=== PATIENT | female | born 1935 | race Caucasian/White ===

== ENCOUNTER 2016-11-25 20:10 | Inpatient (IN) | payer MEDICARE, MEDICAID ==
--- NOTE | 2016-11-25 20:26 | ED Physician Chart ---
Chief Complaint/HPI - Patient Information Date Seen:: 11/25/16 Time Seen:: 20:22 Chief Complaint:: anxiety History of Present Illness:: [place] [facility] [place] lately. gets hyperventilation at times. feels ok at present. lives in [place]. used to live near this hospital...knows neighborhood. no recent pain nor illness. no cp. no ARMSTRONG> no abd p. no back pain. no fever. no uri sx. no urine change. pt has soft tissue mass on rt forearm that has been stable w no change for yrs. hx of insomnea but feels sleepy rt now. Historian:: Patient Review:: Transfer documents Reviewed Review of Systems - Review of Systems General/Constitutional: No fever, No chills, No weight loss, No weakness, No diaphoresis, No edema, No loss of appetite Skin: No skin lesions, No rash, No bruising Head: No headache, No light-headedness Eyes: No loss of vision, No pain, No diplopia ENT: No earache, No nasal drainage, No sore throat, No tinnitus Neck: No neck pain, No swelling, No thyromegaly, No stiffness, No mass noted Cardio Vascular: No chest pain, No palpitations, No PND, No orthopnea, No edema Pulmonary: No SOB, No cough, No sputum, No wheezing GI: No nausea, No vomiting, No diarrhea, No pain, No melena, No hematochezia, No constipation, No hematemesis G/U: No dysuria, No frequency, No hematuria Musculoskeletal: No bone or joint pain, No back pain, No muscle pain Endocrine: No polyuria, No polydipsia Psychiatric: Prior psych history, No depression, Anxiety, No suicidal ideation Hematopoietic: No bruising, No lymphadenopathy Allergic/Immuno: No urticaria, No angioedema Neurological: No syncope, No focal symptoms, No weakness, No paresthesia, No headache, No seizure, No dizziness, No confusion, No vertigo Past Medical History - Past Medical History Past Medical History: HTN Social History: Care Facility Psychiatricy History: Other (anxiety) Medication: Reviewed Family Medical History - Family Member Mother History Unknown: Yes Physical Exam - Physical Examination General/Constitutional: Awake, Well-developed, well-nourished, Alert, No distress, GCS 15, Non-toxic appearing, Ambulatory Head: Atraumatic Eyes: Lids, conjuctiva normal, PERRL, EOMI Skin: Nl inspection, No rash, No skin lesions, No ecchymosis, Well hydrated, No lymphadenopathy ENMT: External ears, nose nl, Nasal exam nl, Lips, teeth, gums nl Neck: Nontender, Full ROM w/o pain, No JVD, No nuchal rigidity, No bruit, No mass, No stridor Respiratory: Nl effort/Exclusion, Clear to Auscultation, No Wheeze/Rhonchi/Rales Cardio Vascular: RRR, No murmur, gallop, rubs, NL S1 S2 GI: No tenderness/rebounding/guarding, No organomegaly, No hernia, Normal BS's, Nondistended, No mass/bruits, No McBurney tenderness : No CVA tenderness Extremities: No tenderness or effusion, Full ROM, normal strength in all extremities, No edema, Normal digits & nails Other Extremities comments:: 2 inch soft tissue mass at rt forearm. 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 not red/hot etc...no infection. not tndr. Neuro/Psych: Alert/oriented, DTR's symmetric, Normal sensory exam, Normal motor strength, Judgement/insight normal, Mood normal, Normal gait, No focal deficits Other Neuro/Psych comments:: pt calm and cooperative at present. mild anxiety. Misc: normal gait, Normal back, No paraspinal tenderness Labs/Radiology/EKG Results - Lab Results Results: Laboratory Tests 11/25/16 11/25/16 11/25/16 20:40 20:40 20:40 WBC 8.5 RBC 5.14 Hgb 14.4 Hct 43.4 MCV 84.4 MCH 28.0 MCHC Differential 33.1 RDW 12.3 Plt Count 395 MPV 6.7 Neutrophils % 71.5 Lymphocytes % 17.4 L Monocytes % 9.6 Eosinophils % 1.2 Basophils % 0.3 Sodium 126 L Potassium 3.9 Chloride 96 L Carbon Dioxide 24.1 Anion Gap 9.8 BUN 13 Creatinine 0.7 Est GFR ( Amer) TNP Est GFR (Non-Af Amer) TNP BUN/Creatinine Ratio 18.6 Glucose 200 H Calcium 9.8 Total Bilirubin 0.4 AST 11 L ALT 8 Alkaline Phosphatase 71 Troponin I Total Protein 7.6 Albumin 3.8 Globulin 3.8 Albumin/Globulin Ratio 1.0 Triglycerides 89 Cholesterol 182 LDL Cholesterol Direct 124 HDL Cholesterol 52 TSH 1.19 Salicylates < 25.0 L Acetaminophen < 10.0 L Ethyl Alcohol < 10 11/25/16 20:40 WBC RBC Hgb Hct MCV MCH MCHC Differential RDW Plt Count MPV Neutrophils % Lymphocytes % Monocytes % Eosinophils % Basophils % Sodium Potassium Chloride Carbon Dioxide Anion Gap BUN Creatinine Est GFR ( Amer) Est GFR (Non-Af Amer) BUN/Creatinine Ratio Glucose Calcium Total Bilirubin AST ALT Alkaline Phosphatase Troponin I 0.01 Total Protein Albumin Globulin Albumin/Globulin Ratio Triglycerides Cholesterol LDL Cholesterol Direct HDL Cholesterol TSH Salicylates Acetaminophen Ethyl Alcohol ED Septic Shock - . Is Septic Shock (SBP<90, OR Lactate>4 mmol\L) present?: No Reassessment (Disposition) - Reassessment Reassessment:: pt did well in ED. is starting to have mild agitation..wants to go to room now. labs ok x 200 glucose but [facility] floor is ok w handling dm from my past experiences and dm appears mild/early. will add a hgb a1c to quantify. Reassessment Condition:: Unchanged - Diagnosis Diagnosis:: 1 behavioral issues anxiety/agitation // pt medically clear for [facility] admission 2 suspect new onset DM (glucose 200) - Patient Disposition Admitted to:: [facility] Condition at Disposition:: Unchanged
[2016-11-25 20:46] LABS: % BASOPHILS 0.3 % (0.0-2.0); % EOSINOPHILS 1.2 % (0.0-5.0); % LYMPHOCYTES 17.4 % (20.0-50.0); % MONOCYTES 9.6 % (2.0-10.0); % NEUTROPHILS 71.5 % (40.0-80.0); HEMATOCRIT 43.4 % (35.0-45.0); HEMOGLOBIN 14.4 gm/dL (11.7-16.1); MEAN CELL VOLUME 84.4 fl (81-100); MEAN CORPUSCULAR HGB CONC 33.1 pg (28.0-36.0); MEAN PLATELET VOLUME 6.7 fl; NEUTROPHILE ABSOLUTE 6.1 Th/cmm (1.8-8.0); PLATELET COUNT 395 Th/cmm (150-400); RED BLOOD COUNT 5.14 Mil/cmm (3.80-5.20); RED CELL DISTRIBUTION WIDTH 12.3 % (11.5-20.0); WHITE BLOOD COUNT 8.5 Th/cmm (4.8-10.8)
[2016-11-25 21:06] LABS: ACETAMINOPHEN < 10.0 ug/mL (10.0-30.0); ALKALINE PHOSPHATASE 71 U/L (34-104); ANION GAP 9.8 (7.0-16.0); BILIRUBIN,TOTAL 0.4 mg/dL (0.3-1.0); BUN - UREA NITROGEN 13 mg/dL (7-25); BUN/CREATININE RATIO 18.6; CALCIUM SERUM 9.8 mg/dL (8.6-10.3); CARBON DIOXIDE 24.1 mEq/L (21.0-31.0); CHLORIDE 96 mEq/L (98-107); CHOLESTEROL 182 mg/dL (<200); CREATININE - SERUM 0.7 mg/dL (0.6-1.2); GLUCOSE 200 mg/dL (70-105); POTASSIUM SERUM 3.9 mEq/L (3.5-5.1); SGOT 11 U/L (13-39); SGPT/ALT 8 U/L (7-52); SODIUM SERUM 126 mEq/L (136-145); TRIGLYCERIDES 89 mg/dL (<150)
[2016-11-25 22:44] LABS: AMPHETAMINE URINE NEGATIVE (NEGATIVE); BARBITURATES URINE NEGATIVE (NEGATIVE)
[2016-11-25 22:45] LABS: METHADONE URINE NEGATIVE (NEGATIVE)
[2016-11-25 22:52] LABS: URINE BILIRUBIN NEGATIVE (NEGATIVE); URINE COLOR YELLOW; URINE GLUCOSE (UA) NEGATIVE (NEGATIVE); URINE KETONE NEGATIVE (NEGATIVE)
[2016-11-25 22:53] LABS: URINE BLOOD TRACE (NEGATIVE); URINE PH 6.5; URINE PROTEIN NEGATIVE (NEGATIVE); URINE UROBILINOGEN 0.2 E.U./dL (0.2 - 1.0)
[2016-11-25 22:54] LABS: URINE BACTERIA FEW /hpf (NONE SEEN); URINE EPITHELIAL CELLS FEW /lpf (FEW); URINE RBC 0-2 /hpf (0-5)
[2016-11-25 23:17] VITALS: BP 129/68
[2016-11-25] MEDS ORDERED: Maalox 30 mL Cup PO PRN (23:18)
[2016-11-25] MEDS ORDERED: Magnesium Hydroxide (MOM) 30 mL UDC PO PRN (23:18)
[2016-11-25] MEDS ORDERED: Non-Formulary Item 1 EA (Temazepam [Restoril*] 7.5 MG) PO PRN (23:22)
[2016-11-26] MEDS: Carbamide Peroxide Otic Soln 15 mL Bottle RIGHT EAR SCH ×3 (09:03→16:45)
[2016-11-26] MEDS: Acetaminophen 500 MG TAB PO PRN (11:31)
--- NOTE | 2016-11-26 15:16 | Admit Criteria Form ---
Admit Criteria Forms - Admit Criteria Diagnosis: PSYCHIATRIC DISORDERS (Place 'X' for any and all applicable criteria): Ongoing inpatient care may be needed for 1 or more of the following(1)(2)(3)(4)( 6)(7)(8): [ ]I. Danger to self or others not manageable at lower level of care. [ ]II. Grave disability (eg, inability to perform self care necessary at lower level of care) [ ]III. Agitation or inappropriate behavior interfering with care for primary condition (eg, attempting to discontinue lines or drains prematurely, unable to cooperate with respiratory care) [X]IV. Severe disability or disorder indicated by ALL of the following: [X]a) Severe behavioral health disorder-related symptoms or condition indicated by 1 or more of the following: [ ]i) Severe problem with cognition, memory, judgment, or impulse control [X]ii) Severe clinical manifestations (eg, hallucinations, delusions, other acute psychotic symptoms, rudy, extreme agitation or anxiety) [X]b) Patient management at lower level of care is not feasible until acute intervention or modification is initiated. Extended stay beyond goal length of stay for the primary condition may be needed until ALLof the following are present(1)(2)(3)(4)(7)94)(23): [ ]a) Danger to self or others is absent or manageable at lower level of care [ ]b) Behavior crisis management, including physical or chemical restraints, is required and is not available at a lower level of care. [ ]c) Behavioral symptoms (e.g., agitation, somnolence, inappropriate behavior) are present, and are not manageable at a lower level of care. [ ]d) Patient cannot understand follow-up treatment and crisis plan. [ ]e) Provider and supports are sufficiently available at lower level of care. [ ]f) Patient can participate (e.g., verify absence of plan for harm) and is in needed of monitoring. The original [facility] content created by [facility] has been revised. The portions of the content which have been revised are identified through the use of italic text or in bold, and [facility] has neither reviewed nor approved the modified material. All other unmodified content is copyright [facility]. Please see references footnoted in the original [facility] edition 2017
[2016-11-27] MEDS: Acetaminophen 500 MG TAB PO PRN ×3 (00:10→21:08)
[2016-11-27] MEDS: Carbamide Peroxide Otic Soln 15 mL Bottle RIGHT EAR SCH ×2 (08:46→17:30)
--- NOTE | 2016-11-27 10:02 | General Progress Note ---
Subjective - Review of Systems Subjective: no distress Objective - Results Result Diagrams: 11/25/16 20:40 11/25/16 20:40 Recent Labs: Laboratory Last Values WBC 8.5 Th/cmm (4.8-10.8) 11/25/16 20:40 RBC 5.14 Mil/cmm (3.80-5.20) 11/25/16 20:40 Hgb 14.4 gm/dL (11.7-16.1) 11/25/16 20:40 Hct 43.4 % (35.0-45.0) 11/25/16 20:40 MCV 84.4 fl (81-100) 11/25/16 20:40 MCH 28.0 pg (27.0-31.0) 11/25/16 20:40 MCHC Differential 33.1 pg (28.0-36.0) 11/25/16 20:40 RDW 12.3 % (11.5-20.0) 11/25/16 20:40 Plt Count 395 Th/cmm (150-400) 11/25/16 20:40 MPV 6.7 fl 11/25/16 20:40 Neutrophils % 71.5 % (40.0-80.0) 11/25/16 20:40 Lymphocytes % 17.4 % (20.0-50.0) L 11/25/16 20:40 Monocytes % 9.6 % (2.0-10.0) 11/25/16 20:40 Eosinophils % 1.2 % (0.0-5.0) 11/25/16 20:40 Basophils % 0.3 % (0.0-2.0) 11/25/16 20:40 Sodium 126 mEq/L (136-145) L 11/25/16 20:40 Potassium 3.9 mEq/L (3.5-5.1) 11/25/16 20:40 Chloride 96 mEq/L (98-107) L 11/25/16 20:40 Carbon Dioxide 24.1 mEq/L (21.0-31.0) 11/25/16 20:40 Anion Gap 9.8 (7.0-16.0) 11/25/16 20:40 BUN 13 mg/dL (7-25) 11/25/16 20:40 Creatinine 0.7 mg/dL (0.6-1.2) 11/25/16 20:40 Est GFR ( Amer) TNP 11/25/16 20:40 Est GFR (Non-Af Amer) TNP 11/25/16 20:40 BUN/Creatinine Ratio 18.6 11/25/16 20:40 Glucose 200 mg/dL (70-105) H 11/25/16 20:40 Hemoglobin A1c % 6.9 % (4.0-6.0) H 11/25/16 20:40 Calcium 9.8 mg/dL (8.6-10.3) 11/25/16 20:40 Total Bilirubin 0.4 mg/dL (0.3-1.0) 11/25/16 20:40 AST 11 U/L (13-39) L 11/25/16 20:40 ALT 8 U/L (7-52) 11/25/16 20:40 Alkaline Phosphatase 71 U/L (34-104) 11/25/16 20:40 Troponin I 0.01 ng/mL (0.01-0.05) 11/25/16 20:40 Total Protein 7.6 gm/dL (6.0-8.3) 11/25/16 20:40 Albumin 3.8 gm/dL (3.7-5.3) 11/25/16 20:40 Globulin 3.8 gm/dL 11/25/16 20:40 Albumin/Globulin Ratio 1.0 (1.0-1.8) 11/25/16 20:40 Triglycerides 89 mg/dL (<150) 11/25/16 20:40 Cholesterol 182 mg/dL (<200) 11/25/16 20:40 LDL Cholesterol Direct 124 mg/dL (75-193) 11/25/16 20:40 HDL Cholesterol 52 mg/dL (23-92) 11/25/16 20:40 TSH 1.19 uIU/ml (0.34-5.60) 11/25/16 20:40 Urine Source CLEAN C 11/25/16 22:00 Urine Color YELLOW 11/25/16 22:00 Urine Clarity CLEAR (CLEAR) 11/25/16 22:00 Urine pH 6.5 11/25/16 22:00 Ur Specific [place] 1.010 (1.005-1.030) 11/25/16 22:00 Urine Protein NEGATIVE mg/dL (NEGATIVE) 11/25/16 22:00 Urine Glucose (UA) NEGATIVE mg/dL (NEGATIVE) 11/25/16 22:00 Urine Ketones NEGATIVE mg/dL (NEGATIVE) 11/25/16 22:00 Urine Blood TRACE (NEGATIVE) 11/25/16 22:00 Urine Nitrate NEGATIVE (NEGATIVE) 11/25/16 22:00 Urine Bilirubin NEGATIVE (NEGATIVE) 11/25/16 22:00 Urine Urobilinogen 0.2 E.U./dL (0.2 - 1.0) 11/25/16 22:00 Ur Leukocyte Esterase SMALL (NEGATIVE) H 11/25/16 22:00 Urine RBC 0-2 /hpf (0-5) 11/25/16 22:00 Urine WBC 6-10 /hpf (0-5) H 11/25/16 22:00 Ur Epithelial Cells FEW /lpf (FEW) 11/25/16 22:00 Urine Bacteria FEW /hpf (NONE SEEN) 11/25/16 22:00 Salicylates < 25.0 mg/L (30.0-100.0) L 11/25/16 20:40 Urine Opiates Screen NEGATIVE (NEGATIVE) 11/25/16 22:00 Urine Methadone Screen NEGATIVE (NEGATIVE) 11/25/16 22:00 Acetaminophen < 10.0 ug/mL (10.0-30.0) L 11/25/16 20:40 Ur Barbiturates Screen NEGATIVE (NEGATIVE) 11/25/16 22:00 Ur Tricyclics Screen NEGATIVE (NEGATIVE) 11/25/16 22:00 Ur Phencyclidine Scrn NEGATIVE (NEGATIVE) 11/25/16 22:00 Amphetamines Screen NEGATIVE (NEGATIVE) 11/25/16 22:00 U Methamphetamines Scrn NEGATIVE (NEGATIVE) 11/25/16 22:00 U Benzodiazepines Scrn POSITIVE (NEGATIVE) H 11/25/16 22:00 U Cocaine Metab Screen NEGATIVE (NEGATIVE) 11/25/16 22:00 U Cannabinoids Screen NEGATIVE (NEGATIVE) 11/25/16 22:00 Ethyl Alcohol < 10 mg/dL (0-10) 11/25/16 20:40 RPR NONREACTIVE (NONREACTIVE) 11/25/16 20:40 - Physical Exam Vitals and I&O: Vital Signs Temp 97.9 F 11/26/16 21:15 Pulse 75 06/29/17 21:15 Resp 18 11/26/16 21:15 BP 145/78 11/26/16 21:15 Pulse Ox 98 11/26/16 21:15 Intake & Output 11/26/16 11/27/16 11/27/16 18:59 06:59 18:59 Other: # Voids 1 Active Medications: Current Medications Acetaminophen (Tylenol Extra Strength) 500 mg PO Q6HR PRN PRN Reason: Pain (Mild) Last Admin: 11/27/16 08:47 Dose: 500 mg Al Hydrox/Mg Hydrox/Simethicone (Maalox) 30 ml PO Q6H PRN PRN Reason: Dyspepsia Stop: 01/24/17 23:17 Carbamide Peroxide (Debrox Otic Drops) 4 drop RIGHT EAR BID [facility] Stop: 11/30/16 08:59 Last Admin: 11/27/16 08:46 Dose: Not Given Famotidine (Pepcid) 20 mg PO DAILY [facility] Stop: 01/25/17 08:59 Last Admin: 11/27/16 08:46 Dose: 20 mg Lorazepam (Ativan) 0.5 mg PO Q8HR PRN; Protocol PRN Reason: Anxiety/agitation Stop: 01/24/17 23:21 Magnesium Hydroxide (Milk Of Magnesia) 30 ml PO HS PRN PRN Reason: Constipation Stop: 01/24/17 23:17 Zolpidem Tartrate (Ambien) 5 mg PO HS PRN PRN Reason: Insomnia Stop: 01/25/17 09:05 - Procedures Procedures: Procedures Procedure Code Date EMERGENCY DEPT VISIT 92919 02/03/00 IMMOBILIZ/WOUND ATTN NEC 93.59 08/01/01 Nutritional Asmnt/Malnutr-PDOC - Dietary Evaluation Malnutrition Findings (Please click <Entered> for more info): Nutritional Asmnt/Malnutrition Start: 11/26/16 13: 08 Text: Status: Complete Freq: Document 11/26/16 13:08 GSUN (Rec: 11/26/16 13:18 [id number]) Nutritional Asmnt/Malnutrition Patient General Information Nutritional Screening High Risk Screening Diagnosis ER: suspect new onset DM Pertinent Medical Hx/Surgical Hx ER: HTN Subjective Information 81 year old female from SNF. Spoke to pt resting in bed, pt appeared slightly confused, forgetful, easily agitated, not suitable for DM edu. Pt stated usually fair appetite, ate 50% breakfast this AM. Teeth intact, no difficulties eating, became agitated regarding retriving her toothpick from her purse. Pt stated UBW 140lb, CBW bedscale 153.1lb, pt denied recent weight changes. Current Diet Order/ Nutrition Support Regular, ANGELIQUE Pertinent Medications Maalox, Pepcid, MOM Pertinent Labs 11/25: glucose 200H, A1c 6.9H Nutritional Hx/Data Height 1.63 m Height (Calculated Centimeters) 162.6 Current Weight (lbs) 69.445 kg Weight (Calculated Kilograms) 69.4 Weight (Calculated Grams) 63513.0 Usual body Weight (lbs) 140 [place] Body Weight 120 Weight Status Overweight GI Symptoms Cultural/Ethnic/Muslim Belief Pt denied allergies. Pt dislikes milk, yogurt. Skin Integrity/Comment: Tomás Griffiths. Skin intact. Estimated Nutritional Goals Calories/Kcals/Kg UBW 140lb/63.6kg Kcals Calculated 1590-1908kcal (25-30kcal/kg) Protein Calculated 64g (1g/kg) Fluid: ml 1590-1908ml (1ml/kcal) Nutritional Problem 1. Problem Problem Altered nutrition related laboratory values related to Etiology endocrine dysfunction, " suspect new onset DM" per ER note aeb Signs/Symptoms: A1c 6.9, glucose 200 on adm Intervention/Recommendation Comments 1. Recommend [id number]. 2. FNS noted of pt's fodo preferences. Expected Outcomes/Goals Expected Outcomes/Goals 1. PO intake to meet at least 75% of estimated nutritional needs.
[2016-11-28] MEDS: Carbamide Peroxide Otic Soln 15 mL Bottle RIGHT EAR SCH ×2 (08:38→16:20)
[2016-11-28] MEDS: Acetaminophen 500 MG TAB PO PRN ×2 (08:44→16:30)
[2016-11-29] MEDS: Acetaminophen 500 MG TAB PO PRN ×2 (09:52→22:50)
[2016-11-29] MEDS: Carbamide Peroxide Otic Soln 15 mL Bottle RIGHT EAR SCH ×2 (09:54→17:12)
--- NOTE | 2016-11-29 17:02 | General Progress Note ---
Subjective - Review of Systems Service Date: 11/29/16 Subjective: no distress Objective - Results Result Diagrams: 11/25/16 20:40 11/25/16 20:40 Recent Labs: Laboratory Last Values WBC 8.5 Th/cmm (4.8-10.8) 11/25/16 20:40 RBC 5.14 Mil/cmm (3.80-5.20) 11/25/16 20:40 Hgb 14.4 gm/dL (11.7-16.1) 11/25/16 20:40 Hct 43.4 % (35.0-45.0) 11/25/16 20:40 MCV 84.4 fl (81-100) 11/25/16 20:40 MCH 28.0 pg (27.0-31.0) 11/25/16 20:40 MCHC Differential 33.1 pg (28.0-36.0) 11/25/16 20:40 RDW 12.3 % (11.5-20.0) 11/25/16 20:40 Plt Count 395 Th/cmm (150-400) 11/25/16 20:40 MPV 6.7 fl 11/25/16 20:40 Neutrophils % 71.5 % (40.0-80.0) 11/25/16 20:40 Lymphocytes % 17.4 % (20.0-50.0) L 11/25/16 20:40 Monocytes % 9.6 % (2.0-10.0) 11/25/16 20:40 Eosinophils % 1.2 % (0.0-5.0) 11/25/16 20:40 Basophils % 0.3 % (0.0-2.0) 11/25/16 20:40 Sodium 126 mEq/L (136-145) L 11/25/16 20:40 Potassium 3.9 mEq/L (3.5-5.1) 11/25/16 20:40 Chloride 96 mEq/L (98-107) L 11/25/16 20:40 Carbon Dioxide 24.1 mEq/L (21.0-31.0) 11/25/16 20:40 Anion Gap 9.8 (7.0-16.0) 11/25/16 20:40 BUN 13 mg/dL (7-25) 11/25/16 20:40 Creatinine 0.7 mg/dL (0.6-1.2) 11/25/16 20:40 Est GFR ( Amer) TNP 11/25/16 20:40 Est GFR (Non-Af Amer) TNP 11/25/16 20:40 BUN/Creatinine Ratio 18.6 11/25/16 20:40 Glucose 200 mg/dL (70-105) H 11/25/16 20:40 Hemoglobin A1c % 6.9 % (4.0-6.0) H 11/25/16 20:40 Calcium 9.8 mg/dL (8.6-10.3) 11/25/16 20:40 Total Bilirubin 0.4 mg/dL (0.3-1.0) 11/25/16 20:40 AST 11 U/L (13-39) L 11/25/16 20:40 ALT 8 U/L (7-52) 11/25/16 20:40 Alkaline Phosphatase 71 U/L (34-104) 11/25/16 20:40 Troponin I 0.01 ng/mL (0.01-0.05) 11/25/16 20:40 Total Protein 7.6 gm/dL (6.0-8.3) 11/25/16 20:40 Albumin 3.8 gm/dL (3.7-5.3) 11/25/16 20:40 Globulin 3.8 gm/dL 11/25/16 20:40 Albumin/Globulin Ratio 1.0 (1.0-1.8) 11/25/16 20:40 Triglycerides 89 mg/dL (<150) 11/25/16 20:40 Cholesterol 182 mg/dL (<200) 11/25/16 20:40 LDL Cholesterol Direct 124 mg/dL (75-193) 11/25/16 20:40 HDL Cholesterol 52 mg/dL (23-92) 11/25/16 20:40 TSH 1.19 uIU/ml (0.34-5.60) 11/25/16 20:40 Urine Source CLEAN C 11/25/16 22:00 Urine Color YELLOW 11/25/16 22:00 Urine Clarity CLEAR (CLEAR) 11/25/16 22:00 Urine pH 6.5 11/25/16 22:00 Ur Specific [place] 1.010 (1.005-1.030) 11/25/16 22:00 Urine Protein NEGATIVE mg/dL (NEGATIVE) 11/25/16 22:00 Urine Glucose (UA) NEGATIVE mg/dL (NEGATIVE) 11/25/16 22:00 Urine Ketones NEGATIVE mg/dL (NEGATIVE) 11/25/16 22:00 Urine Blood TRACE (NEGATIVE) 11/25/16 22:00 Urine Nitrate NEGATIVE (NEGATIVE) 11/25/16 22:00 Urine Bilirubin NEGATIVE (NEGATIVE) 11/25/16 22:00 Urine Urobilinogen 0.2 E.U./dL (0.2 - 1.0) 11/25/16 22:00 Ur Leukocyte Esterase SMALL (NEGATIVE) H 11/25/16 22:00 Urine RBC 0-2 /hpf (0-5) 11/25/16 22:00 Urine WBC 6-10 /hpf (0-5) H 11/25/16 22:00 Ur Epithelial Cells FEW /lpf (FEW) 11/25/16 22:00 Urine Bacteria FEW /hpf (NONE SEEN) 11/25/16 22:00 Salicylates < 25.0 mg/L (30.0-100.0) L 11/25/16 20:40 Urine Opiates Screen NEGATIVE (NEGATIVE) 11/25/16 22:00 Urine Methadone Screen NEGATIVE (NEGATIVE) 11/25/16 22:00 Acetaminophen < 10.0 ug/mL (10.0-30.0) L 11/25/16 20:40 Ur Barbiturates Screen NEGATIVE (NEGATIVE) 11/25/16 22:00 Ur Tricyclics Screen NEGATIVE (NEGATIVE) 11/25/16 22:00 Ur Phencyclidine Scrn NEGATIVE (NEGATIVE) 11/25/16 22:00 Amphetamines Screen NEGATIVE (NEGATIVE) 11/25/16 22:00 U Methamphetamines Scrn NEGATIVE (NEGATIVE) 11/25/16 22:00 U Benzodiazepines Scrn POSITIVE (NEGATIVE) H 11/25/16 22:00 U Cocaine Metab Screen NEGATIVE (NEGATIVE) 11/25/16 22:00 U Cannabinoids Screen NEGATIVE (NEGATIVE) 11/25/16 22:00 Ethyl Alcohol < 10 mg/dL (0-10) 11/25/16 20:40 RPR NONREACTIVE (NONREACTIVE) 11/25/16 20:40 - Physical Exam Vitals and I&O: Vital Signs Temp 97.8 F 11/29/16 06:44 Pulse 62 11/29/16 06:44 Resp 18 11/29/16 06:44 BP 117/57 11/29/16 06:44 Pulse Ox 96 11/29/16 06:44 Intake & Output 11/28/16 11/29/16 11/29/16 18:59 06:59 18:59 Intake Total 1000 120 Balance 1000 120 Intake: Oral 1000 120 Other: # Voids 4 3 # Bowel Movements 2 Active Medications: Current Medications Acetaminophen (Tylenol Extra Strength) 500 mg PO Q6HR PRN PRN Reason: Pain (Mild) Last Admin: 11/29/16 09:52 Dose: 500 mg Al Hydrox/Mg Hydrox/Simethicone (Maalox) 30 ml PO Q6H PRN PRN Reason: Dyspepsia Stop: 01/24/17 23:17 Carbamide Peroxide (Debrox Otic Drops) 4 drop RIGHT EAR BID [facility] Stop: 11/30/16 08:59 Last Admin: 11/29/16 09:54 Dose: 4 drop Docusate Sodium (Colace) 200 mg PO BID [facility] Stop: 01/27/17 08:59 Last Admin: 11/29/16 09:52 Dose: 200 mg Famotidine (Pepcid) 20 mg PO DAILY [facility] Stop: 01/25/17 08:59 Last Admin: 11/29/16 09:55 Dose: 20 mg Lorazepam (Ativan) 0.5 mg PO Q8HR PRN; Protocol PRN Reason: Anxiety/agitation Stop: 01/24/17 23:21 Magnesium Hydroxide (Milk Of Magnesia) 30 ml PO HS PRN PRN Reason: Constipation Stop: 01/24/17 23:17 Mupirocin (Bactroban Oint) 1 appl NS BID [facility] Stop: 12/02/16 17:01 Last Admin: 11/29/16 09:51 Dose: 1 appl Zolpidem Tartrate (Ambien) 5 mg PO HS PRN PRN Reason: Insomnia Stop: 01/25/17 09:05 Physical Exam: no distress - Procedures Procedures: Procedures Procedure Code Date EMERGENCY DEPT VISIT 55588 02/03/00 IMMOBILIZ/WOUND ATTN NEC 93.59 08/01/01 Nutritional Asmnt/Malnutr-PDOC - Dietary Evaluation Malnutrition Findings (Please click <Entered> for more info): Nutritional Asmnt/Malnutrition Start: 11/26/16 13: 08 Text: Status: Complete Freq: Document 11/26/16 13:08 [id number] (Rec: 11/26/16 13:18 [id number]) Nutritional Asmnt/Malnutrition Patient General Information Nutritional Screening High Risk Screening Diagnosis ER: suspect new onset DM Pertinent Medical Hx/Surgical Hx ER: HTN Subjective Information 81 year old female from SNF. Spoke to pt resting in bed, pt appeared slightly confused, forgetful, easily agitated, not suitable for DM edu. Pt stated usually fair appetite, ate 50% breakfast this AM. Teeth intact, no difficulties eating, became agitated regarding retriving her toothpick from her purse. Pt stated UBW 140lb, CBW bedscale 153.1lb, pt denied recent weight changes. Current Diet Order/ Nutrition Support Regular, ANGELIQUE Pertinent Medications Maalox, Pepcid, MOM Pertinent Labs 11/25: glucose 200H, A1c 6.9H Nutritional Hx/Data Height 1.63 m Height (Calculated Centimeters) 162.6 Current Weight (lbs) 69.445 kg Weight (Calculated Kilograms) 69.4 Weight (Calculated Grams) 28208.0 Usual body Weight (lbs) 140 [place] Body Weight 120 Weight Status Overweight GI Symptoms Cultural/Ethnic/Mosque Belief Pt denied allergies. Pt dislikes milk, yogurt. Skin Integrity/Comment: Tomás 17. Skin intact. Estimated Nutritional Goals Calories/Kcals/Kg UBW 140lb/63.6kg Kcals Calculated 1590-1908kcal (25-30kcal/kg) Protein Calculated 64g (1g/kg) Fluid: ml 1590-1908ml (1ml/kcal) Nutritional Problem 1. Problem Problem Altered nutrition related laboratory values related to Etiology endocrine dysfunction, " suspect new onset DM" per ER note aeb Signs/Symptoms: A1c 6.9, glucose 200 on adm Intervention/Recommendation Comments 1. Recommend [id number]. 2. FNS noted of pt's fodo preferences. Expected Outcomes/Goals Expected Outcomes/Goals 1. PO intake to meet at least 75% of estimated nutritional needs.
--- NOTE | 2016-11-30 12:49 | General Progress Note ---
Subjective - Review of Systems Events since last encounter: no distress Subjective: no distress Objective - Results Result Diagrams: 11/25/16 20:40 11/25/16 20:40 Recent Labs: Laboratory Last Values WBC 8.5 Th/cmm (4.8-10.8) 11/25/16 20:40 RBC 5.14 Mil/cmm (3.80-5.20) 11/25/16 20:40 Hgb 14.4 gm/dL (11.7-16.1) 11/25/16 20:40 Hct 43.4 % (35.0-45.0) 11/25/16 20:40 MCV 84.4 fl (81-100) 11/25/16 20:40 MCH 28.0 pg (27.0-31.0) 11/25/16 20:40 MCHC Differential 33.1 pg (28.0-36.0) 11/25/16 20:40 RDW 12.3 % (11.5-20.0) 11/25/16 20:40 Plt Count 395 Th/cmm (150-400) 11/25/16 20:40 MPV 6.7 fl 11/25/16 20:40 Neutrophils % 71.5 % (40.0-80.0) 11/25/16 20:40 Lymphocytes % 17.4 % (20.0-50.0) L 11/25/16 20:40 Monocytes % 9.6 % (2.0-10.0) 11/25/16 20:40 Eosinophils % 1.2 % (0.0-5.0) 11/25/16 20:40 Basophils % 0.3 % (0.0-2.0) 11/25/16 20:40 Sodium 126 mEq/L (136-145) L 11/25/16 20:40 Potassium 3.9 mEq/L (3.5-5.1) 11/25/16 20:40 Chloride 96 mEq/L (98-107) L 11/25/16 20:40 Carbon Dioxide 24.1 mEq/L (21.0-31.0) 11/25/16 20:40 Anion Gap 9.8 (7.0-16.0) 11/25/16 20:40 BUN 13 mg/dL (7-25) 11/25/16 20:40 Creatinine 0.7 mg/dL (0.6-1.2) 11/25/16 20:40 Est GFR ( Amer) TNP 11/25/16 20:40 Est GFR (Non-Af Amer) TNP 11/25/16 20:40 BUN/Creatinine Ratio 18.6 11/25/16 20:40 Glucose 200 mg/dL (70-105) H 11/25/16 20:40 Hemoglobin A1c % 6.9 % (4.0-6.0) H 11/25/16 20:40 Calcium 9.8 mg/dL (8.6-10.3) 11/25/16 20:40 Total Bilirubin 0.4 mg/dL (0.3-1.0) 11/25/16 20:40 AST 11 U/L (13-39) L 11/25/16 20:40 ALT 8 U/L (7-52) 11/25/16 20:40 Alkaline Phosphatase 71 U/L (34-104) 11/25/16 20:40 Troponin I 0.01 ng/mL (0.01-0.05) 11/25/16 20:40 Total Protein 7.6 gm/dL (6.0-8.3) 11/25/16 20:40 Albumin 3.8 gm/dL (3.7-5.3) 11/25/16 20:40 Globulin 3.8 gm/dL 11/25/16 20:40 Albumin/Globulin Ratio 1.0 (1.0-1.8) 11/25/16 20:40 Triglycerides 89 mg/dL (<150) 11/25/16 20:40 Cholesterol 182 mg/dL (<200) 11/25/16 20:40 LDL Cholesterol Direct 124 mg/dL (75-193) 11/25/16 20:40 HDL Cholesterol 52 mg/dL (23-92) 11/25/16 20:40 TSH 1.19 uIU/ml (0.34-5.60) 11/25/16 20:40 Urine Source CLEAN C 11/25/16 22:00 Urine Color YELLOW 11/25/16 22:00 Urine Clarity CLEAR (CLEAR) 11/25/16 22:00 Urine pH 6.5 11/25/16 22:00 Ur Specific [place] 1.010 (1.005-1.030) 11/25/16 22:00 Urine Protein NEGATIVE mg/dL (NEGATIVE) 11/25/16 22:00 Urine Glucose (UA) NEGATIVE mg/dL (NEGATIVE) 11/25/16 22:00 Urine Ketones NEGATIVE mg/dL (NEGATIVE) 11/25/16 22:00 Urine Blood TRACE (NEGATIVE) 11/25/16 22:00 Urine Nitrate NEGATIVE (NEGATIVE) 11/25/16 22:00 Urine Bilirubin NEGATIVE (NEGATIVE) 11/25/16 22:00 Urine Urobilinogen 0.2 E.U./dL (0.2 - 1.0) 11/25/16 22:00 Ur Leukocyte Esterase SMALL (NEGATIVE) H 11/25/16 22:00 Urine RBC 0-2 /hpf (0-5) 11/25/16 22:00 Urine WBC 6-10 /hpf (0-5) H 11/25/16 22:00 Ur Epithelial Cells FEW /lpf (FEW) 11/25/16 22:00 Urine Bacteria FEW /hpf (NONE SEEN) 11/25/16 22:00 Salicylates < 25.0 mg/L (30.0-100.0) L 11/25/16 20:40 Urine Opiates Screen NEGATIVE (NEGATIVE) 11/25/16 22:00 Urine Methadone Screen NEGATIVE (NEGATIVE) 11/25/16 22:00 Acetaminophen < 10.0 ug/mL (10.0-30.0) L 11/25/16 20:40 Ur Barbiturates Screen NEGATIVE (NEGATIVE) 11/25/16 22:00 Ur Tricyclics Screen NEGATIVE (NEGATIVE) 11/25/16 22:00 Ur Phencyclidine Scrn NEGATIVE (NEGATIVE) 11/25/16 22:00 Amphetamines Screen NEGATIVE (NEGATIVE) 11/25/16 22:00 U Methamphetamines Scrn NEGATIVE (NEGATIVE) 11/25/16 22:00 U Benzodiazepines Scrn POSITIVE (NEGATIVE) H 11/25/16 22:00 U Cocaine Metab Screen NEGATIVE (NEGATIVE) 11/25/16 22:00 U Cannabinoids Screen NEGATIVE (NEGATIVE) 11/25/16 22:00 Ethyl Alcohol < 10 mg/dL (0-10) 11/25/16 20:40 RPR NONREACTIVE (NONREACTIVE) 11/25/16 20:40 - Physical Exam Vitals and I&O: Vital Signs Temp 98.0 F 11/30/16 06:11 Pulse 67 11/30/16 06:11 Resp 19 11/30/16 06:11 BP 124/73 11/30/16 06:11 Pulse Ox 94 11/30/16 06:11 Intake & Output 11/29/16 11/30/16 11/30/16 18:59 06:59 18:59 Intake Total 800 Balance 800 Intake: Oral 800 Other: # Voids 3 2 # Bowel Movements 1 0 Active Medications: Current Medications Acetaminophen (Tylenol Extra Strength) 500 mg PO Q6HR PRN PRN Reason: Pain (Mild) Last Admin: 11/29/16 22:50 Dose: 500 mg Al Hydrox/Mg Hydrox/Simethicone (Maalox) 30 ml PO Q6H PRN PRN Reason: Dyspepsia Stop: 01/24/17 23:17 Docusate Sodium (Colace) 200 mg PO BID [facility] Stop: 01/27/17 08:59 Last Admin: 11/30/16 09:22 Dose: 200 mg Famotidine (Pepcid) 20 mg PO DAILY [facility] Stop: 01/25/17 08:59 Last Admin: 11/30/16 09:22 Dose: 20 mg Lorazepam (Ativan) 0.5 mg PO Q8HR PRN; Protocol PRN Reason: Anxiety/agitation Stop: 01/24/17 23:21 Magnesium Hydroxide (Milk Of Magnesia) 30 ml PO HS PRN PRN Reason: Constipation Stop: 01/24/17 23:17 Mupirocin (Bactroban Oint) 1 appl NS BID [facility] Stop: 12/02/16 17:01 Last Admin: 11/30/16 09:23 Dose: Not Given Quetiapine Fumarate (Seroquel) 25 mg PO TID MARIIA PRN Reason: Protocol Stop: 01/29/17 08:59 Last Admin: 11/30/16 09:22 Dose: 25 mg Zolpidem Tartrate (Ambien) 5 mg PO HS PRN PRN Reason: Insomnia Stop: 01/25/17 09:05 Physical Exam: no distress - Procedures Procedures: Procedures Procedure Code Date EMERGENCY DEPT VISIT 98910 02/03/00 IMMOBILIZ/WOUND ATTN NEC 93.59 08/01/01 Assessment/Plan - Plan Plan: cpm Nutritional Asmnt/Malnutr-PDOC - Dietary Evaluation Malnutrition Findings (Please click <Entered> for more info): Nutritional Asmnt/Malnutrition Start: 11/26/16 13: 08 Text: Status: Complete Freq: Document 11/26/16 13:08 [id number] (Rec: 11/26/16 13:18 [id number]) Nutritional Asmnt/Malnutrition Patient General Information Nutritional Screening High Risk Screening Diagnosis ER: suspect new onset DM Pertinent Medical Hx/Surgical Hx ER: HTN Subjective Information 81 year old female from SNF. Spoke to pt resting in bed, pt appeared slightly confused, forgetful, easily agitated, not suitable for DM edu. Pt stated usually fair appetite, ate 50% breakfast this AM. Teeth intact, no difficulties eating, became agitated regarding retriving her toothpick from her purse. Pt stated UBW 140lb, CBW bedscale 153.1lb, pt denied recent weight changes. Current Diet Order/ Nutrition Support Regular, ANGELIQUE Pertinent Medications Maalox, Pepcid, MOM Pertinent Labs 11/25: glucose 200H, A1c 6.9H Nutritional Hx/Data Height 1.63 m Height (Calculated Centimeters) 162.6 Current Weight (lbs) 69.445 kg Weight (Calculated Kilograms) 69.4 Weight (Calculated Grams) 52988.0 Usual body Weight (lbs) 140 [place] Body Weight 120 Weight Status Overweight GI Symptoms Cultural/Ethnic/Muslim Belief Pt denied allergies. Pt dislikes milk, yogurt. Skin Integrity/Comment: Tomás 17. Skin intact. Estimated Nutritional Goals Calories/Kcals/Kg UBW 140lb/63.6kg Kcals Calculated 1590-1908kcal (25-30kcal/kg) Protein Calculated 64g (1g/kg) Fluid: ml 1590-1908ml (1ml/kcal) Nutritional Problem 1. Problem Problem Altered nutrition related laboratory values related to Etiology endocrine dysfunction, " suspect new onset DM" per ER note aeb Signs/Symptoms: A1c 6.9, glucose 200 on adm Intervention/Recommendation Comments 1. Recommend [id number]. 2. FNS noted of pt's fodo preferences. Expected Outcomes/Goals Expected Outcomes/Goals 1. PO intake to meet at least 75% of estimated nutritional needs.
[2016-11-30] MEDS: Acetaminophen 500 MG TAB PO PRN ×2 (13:58→20:28)
[2016-12-01] MEDS: Acetaminophen 500 MG TAB PO PRN ×2 (09:15→17:47)
--- NOTE | 2016-12-01 10:25 | General Progress Note ---
Subjective - Review of Systems Events since last encounter: no change Subjective: no distress Objective - Results Result Diagrams: 11/25/16 20:40 11/25/16 20:40 Recent Labs: Laboratory Last Values WBC 8.5 Th/cmm (4.8-10.8) 11/25/16 20:40 RBC 5.14 Mil/cmm (3.80-5.20) 11/25/16 20:40 Hgb 14.4 gm/dL (11.7-16.1) 11/25/16 20:40 Hct 43.4 % (35.0-45.0) 11/25/16 20:40 MCV 84.4 fl (81-100) 11/25/16 20:40 MCH 28.0 pg (27.0-31.0) 11/25/16 20:40 MCHC Differential 33.1 pg (28.0-36.0) 11/25/16 20:40 RDW 12.3 % (11.5-20.0) 11/25/16 20:40 Plt Count 395 Th/cmm (150-400) 11/25/16 20:40 MPV 6.7 fl 11/25/16 20:40 Neutrophils % 71.5 % (40.0-80.0) 11/25/16 20:40 Lymphocytes % 17.4 % (20.0-50.0) L 11/25/16 20:40 Monocytes % 9.6 % (2.0-10.0) 11/25/16 20:40 Eosinophils % 1.2 % (0.0-5.0) 11/25/16 20:40 Basophils % 0.3 % (0.0-2.0) 11/25/16 20:40 Sodium 126 mEq/L (136-145) L 11/25/16 20:40 Potassium 3.9 mEq/L (3.5-5.1) 11/25/16 20:40 Chloride 96 mEq/L (98-107) L 11/25/16 20:40 Carbon Dioxide 24.1 mEq/L (21.0-31.0) 11/25/16 20:40 Anion Gap 9.8 (7.0-16.0) 11/25/16 20:40 BUN 13 mg/dL (7-25) 11/25/16 20:40 Creatinine 0.7 mg/dL (0.6-1.2) 11/25/16 20:40 Est GFR ( Amer) TNP 11/25/16 20:40 Est GFR (Non-Af Amer) TNP 11/25/16 20:40 BUN/Creatinine Ratio 18.6 11/25/16 20:40 Glucose 200 mg/dL (70-105) H 11/25/16 20:40 Hemoglobin A1c % 6.9 % (4.0-6.0) H 11/25/16 20:40 Calcium 9.8 mg/dL (8.6-10.3) 11/25/16 20:40 Total Bilirubin 0.4 mg/dL (0.3-1.0) 11/25/16 20:40 AST 11 U/L (13-39) L 11/25/16 20:40 ALT 8 U/L (7-52) 11/25/16 20:40 Alkaline Phosphatase 71 U/L (34-104) 11/25/16 20:40 Troponin I 0.01 ng/mL (0.01-0.05) 11/25/16 20:40 Total Protein 7.6 gm/dL (6.0-8.3) 11/25/16 20:40 Albumin 3.8 gm/dL (3.7-5.3) 11/25/16 20:40 Globulin 3.8 gm/dL 11/25/16 20:40 Albumin/Globulin Ratio 1.0 (1.0-1.8) 11/25/16 20:40 Triglycerides 89 mg/dL (<150) 11/25/16 20:40 Cholesterol 182 mg/dL (<200) 11/25/16 20:40 LDL Cholesterol Direct 124 mg/dL (75-193) 11/25/16 20:40 HDL Cholesterol 52 mg/dL (23-92) 11/25/16 20:40 TSH 1.19 uIU/ml (0.34-5.60) 11/25/16 20:40 Urine Source CLEAN C 11/25/16 22:00 Urine Color YELLOW 11/25/16 22:00 Urine Clarity CLEAR (CLEAR) 11/25/16 22:00 Urine pH 6.5 11/25/16 22:00 Ur Specific [place] 1.010 (1.005-1.030) 11/25/16 22:00 Urine Protein NEGATIVE mg/dL (NEGATIVE) 11/25/16 22:00 Urine Glucose (UA) NEGATIVE mg/dL (NEGATIVE) 11/25/16 22:00 Urine Ketones NEGATIVE mg/dL (NEGATIVE) 11/25/16 22:00 Urine Blood TRACE (NEGATIVE) 11/25/16 22:00 Urine Nitrate NEGATIVE (NEGATIVE) 11/25/16 22:00 Urine Bilirubin NEGATIVE (NEGATIVE) 11/25/16 22:00 Urine Urobilinogen 0.2 E.U./dL (0.2 - 1.0) 11/25/16 22:00 Ur Leukocyte Esterase SMALL (NEGATIVE) H 11/25/16 22:00 Urine RBC 0-2 /hpf (0-5) 11/25/16 22:00 Urine WBC 6-10 /hpf (0-5) H 11/25/16 22:00 Ur Epithelial Cells FEW /lpf (FEW) 11/25/16 22:00 Urine Bacteria FEW /hpf (NONE SEEN) 11/25/16 22:00 Salicylates < 25.0 mg/L (30.0-100.0) L 11/25/16 20:40 Urine Opiates Screen NEGATIVE (NEGATIVE) 11/25/16 22:00 Urine Methadone Screen NEGATIVE (NEGATIVE) 11/25/16 22:00 Acetaminophen < 10.0 ug/mL (10.0-30.0) L 11/25/16 20:40 Ur Barbiturates Screen NEGATIVE (NEGATIVE) 11/25/16 22:00 Ur Tricyclics Screen NEGATIVE (NEGATIVE) 11/25/16 22:00 Ur Phencyclidine Scrn NEGATIVE (NEGATIVE) 11/25/16 22:00 Amphetamines Screen NEGATIVE (NEGATIVE) 11/25/16 22:00 U Methamphetamines Scrn NEGATIVE (NEGATIVE) 11/25/16 22:00 U Benzodiazepines Scrn POSITIVE (NEGATIVE) H 11/25/16 22:00 U Cocaine Metab Screen NEGATIVE (NEGATIVE) 11/25/16 22:00 U Cannabinoids Screen NEGATIVE (NEGATIVE) 11/25/16 22:00 Ethyl Alcohol < 10 mg/dL (0-10) 11/25/16 20:40 RPR NONREACTIVE (NONREACTIVE) 11/25/16 20:40 - Physical Exam Vitals and I&O: Vital Signs Temp 97.4 F 12/01/16 06:47 Pulse 68 12/01/16 06:47 Resp 19 12/01/16 06:47 BP 97/62 12/01/16 06:47 Pulse Ox 98 11/30/16 20:52 Intake & Output 11/30/16 12/01/16 12/01/16 18:59 06:59 18:59 Intake Total 850 240 Balance 850 240 Intake: Oral 850 240 Other: # Voids 4 3 # Bowel Movements 0 0 Active Medications: Current Medications Acetaminophen (Tylenol Extra Strength) 500 mg PO Q6HR PRN PRN Reason: Pain (Mild) Last Admin: 12/01/16 09:15 Dose: 500 mg Al Hydrox/Mg Hydrox/Simethicone (Maalox) 30 ml PO Q6H PRN PRN Reason: Dyspepsia Stop: 01/24/17 23:17 Docusate Sodium (Colace) 200 mg PO BID [facility] Stop: 01/27/17 08:59 Last Admin: 12/01/16 09:19 Dose: 200 mg Famotidine (Pepcid) 20 mg PO DAILY [facility] Stop: 01/25/17 08:59 Last Admin: 12/01/16 09:19 Dose: 20 mg Lorazepam (Ativan) 0.5 mg PO Q8HR PRN; Protocol PRN Reason: Anxiety/agitation Stop: 01/24/17 23:21 Last Admin: 12/01/16 09:15 Dose: 0.5 mg Magnesium Hydroxide (Milk Of Magnesia) 30 ml PO HS PRN PRN Reason: Constipation Stop: 01/24/17 23:17 Mupirocin (Bactroban Oint) 1 appl NS BID [facility] Stop: 12/02/16 17:01 Last Admin: 12/01/16 09:20 Dose: 1 appl Quetiapine Fumarate (Seroquel) 25 mg PO TID MARIIA PRN Reason: Protocol Stop: 01/29/17 08:59 Last Admin: 12/01/16 09:19 Dose: 25 mg Zolpidem Tartrate (Ambien) 5 mg PO HS PRN PRN Reason: Insomnia Stop: 01/25/17 09:05 General: No acute distress HEENT: Atraumatic Neck: Thyromegaly - Procedures Procedures: Procedures Procedure Code Date EMERGENCY DEPT VISIT 15845 02/03/00 IMMOBILIZ/WOUND ATTN NEC 93.59 08/01/01 Assessment/Plan - Plan Plan: cpm Nutritional Asmnt/Malnutr-PDOC - Dietary Evaluation Malnutrition Findings (Please click <Entered> for more info): Nutritional Asmnt/Malnutrition Start: 11/26/16 13: 08 Text: Status: Complete Freq: Document 11/26/16 13:08 [email or web address] (Rec: 11/26/16 13:18 [id number]) Nutritional Asmnt/Malnutrition Patient General Information Nutritional Screening High Risk Screening Diagnosis ER: suspect new onset DM Pertinent Medical Hx/Surgical Hx ER: HTN Subjective Information 81 year old female from SNF. Spoke to pt resting in bed, pt appeared slightly confused, forgetful, easily agitated, not suitable for DM edu. Pt stated usually fair appetite, ate 50% breakfast this AM. Teeth intact, no difficulties eating, became agitated regarding retriving her toothpick from her purse. Pt stated UBW 140lb, CBW bedscale 153.1lb, pt denied recent weight changes. Current Diet Order/ Nutrition Support Regular, ANGELIQUE Pertinent Medications Maalox, Pepcid, MOM Pertinent Labs 11/25: glucose 200H, A1c 6.9H Nutritional Hx/Data Height 1.63 m Height (Calculated Centimeters) 162.6 Current Weight (lbs) 69.445 kg Weight (Calculated Kilograms) 69.4 Weight (Calculated Grams) 03271.0 Usual body Weight (lbs) 140 [place] Body Weight 120 Weight Status Overweight GI Symptoms Cultural/Ethnic/[employer]ist Belief Pt denied allergies. Pt dislikes milk, yogurt. Skin Integrity/Comment: Tomás 17. Skin intact. Estimated Nutritional Goals Calories/Kcals/Kg UBW 140lb/63.6kg Kcals Calculated 1590-1908kcal (25-30kcal/kg) Protein Calculated 64g (1g/kg) Fluid: ml 1590-1908ml (1ml/kcal) Nutritional Problem 1. Problem Problem Altered nutrition related laboratory values related to Etiology endocrine dysfunction, " suspect new onset DM" per ER note aeb Signs/Symptoms: A1c 6.9, glucose 200 on adm Intervention/Recommendation Comments 1. Recommend [id number]. 2. FNS noted of pt's fodo preferences. Expected Outcomes/Goals Expected Outcomes/Goals 1. PO intake to meet at least 75% of estimated nutritional needs.
[2016-12-02] MEDS: Acetaminophen 500 MG TAB PO PRN ×2 (04:12→10:14)
--- NOTE | 2016-12-02 09:13 | General Progress Note ---
Subjective - Review of Systems Events since last encounter: no change from yesterday Subjective: no distress Objective - Results Result Diagrams: 11/25/16 20:40 11/25/16 20:40 Recent Labs: Laboratory Last Values WBC 8.5 Th/cmm (4.8-10.8) 11/25/16 20:40 RBC 5.14 Mil/cmm (3.80-5.20) 11/25/16 20:40 Hgb 14.4 gm/dL (11.7-16.1) 11/25/16 20:40 Hct 43.4 % (35.0-45.0) 11/25/16 20:40 MCV 84.4 fl (81-100) 11/25/16 20:40 MCH 28.0 pg (27.0-31.0) 11/25/16 20:40 MCHC Differential 33.1 pg (28.0-36.0) 11/25/16 20:40 RDW 12.3 % (11.5-20.0) 11/25/16 20:40 Plt Count 395 Th/cmm (150-400) 11/25/16 20:40 MPV 6.7 fl 11/25/16 20:40 Neutrophils % 71.5 % (40.0-80.0) 11/25/16 20:40 Lymphocytes % 17.4 % (20.0-50.0) L 11/25/16 20:40 Monocytes % 9.6 % (2.0-10.0) 11/25/16 20:40 Eosinophils % 1.2 % (0.0-5.0) 11/25/16 20:40 Basophils % 0.3 % (0.0-2.0) 11/25/16 20:40 Sodium 126 mEq/L (136-145) L 11/25/16 20:40 Potassium 3.9 mEq/L (3.5-5.1) 11/25/16 20:40 Chloride 96 mEq/L (98-107) L 11/25/16 20:40 Carbon Dioxide 24.1 mEq/L (21.0-31.0) 11/25/16 20:40 Anion Gap 9.8 (7.0-16.0) 11/25/16 20:40 BUN 13 mg/dL (7-25) 11/25/16 20:40 Creatinine 0.7 mg/dL (0.6-1.2) 11/25/16 20:40 Est GFR ( Amer) TNP 11/25/16 20:40 Est GFR (Non-Af Amer) TNP 11/25/16 20:40 BUN/Creatinine Ratio 18.6 11/25/16 20:40 Glucose 200 mg/dL (70-105) H 11/25/16 20:40 Hemoglobin A1c % 6.9 % (4.0-6.0) H 11/25/16 20:40 Calcium 9.8 mg/dL (8.6-10.3) 11/25/16 20:40 Total Bilirubin 0.4 mg/dL (0.3-1.0) 11/25/16 20:40 AST 11 U/L (13-39) L 11/25/16 20:40 ALT 8 U/L (7-52) 11/25/16 20:40 Alkaline Phosphatase 71 U/L (34-104) 11/25/16 20:40 Troponin I 0.01 ng/mL (0.01-0.05) 11/25/16 20:40 Total Protein 7.6 gm/dL (6.0-8.3) 11/25/16 20:40 Albumin 3.8 gm/dL (3.7-5.3) 11/25/16 20:40 Globulin 3.8 gm/dL 11/25/16 20:40 Albumin/Globulin Ratio 1.0 (1.0-1.8) 11/25/16 20:40 Triglycerides 89 mg/dL (<150) 11/25/16 20:40 Cholesterol 182 mg/dL (<200) 11/25/16 20:40 LDL Cholesterol Direct 124 mg/dL (75-193) 11/25/16 20:40 HDL Cholesterol 52 mg/dL (23-92) 11/25/16 20:40 TSH 1.19 uIU/ml (0.34-5.60) 11/25/16 20:40 Urine Source CLEAN C 11/25/16 22:00 Urine Color YELLOW 11/25/16 22:00 Urine Clarity CLEAR (CLEAR) 11/25/16 22:00 Urine pH 6.5 11/25/16 22:00 Ur Specific [place] 1.010 (1.005-1.030) 11/25/16 22:00 Urine Protein NEGATIVE mg/dL (NEGATIVE) 11/25/16 22:00 Urine Glucose (UA) NEGATIVE mg/dL (NEGATIVE) 11/25/16 22:00 Urine Ketones NEGATIVE mg/dL (NEGATIVE) 11/25/16 22:00 Urine Blood TRACE (NEGATIVE) 11/25/16 22:00 Urine Nitrate NEGATIVE (NEGATIVE) 11/25/16 22:00 Urine Bilirubin NEGATIVE (NEGATIVE) 11/25/16 22:00 Urine Urobilinogen 0.2 E.U./dL (0.2 - 1.0) 11/25/16 22:00 Ur Leukocyte Esterase SMALL (NEGATIVE) H 11/25/16 22:00 Urine RBC 0-2 /hpf (0-5) 11/25/16 22:00 Urine WBC 6-10 /hpf (0-5) H 11/25/16 22:00 Ur Epithelial Cells FEW /lpf (FEW) 11/25/16 22:00 Urine Bacteria FEW /hpf (NONE SEEN) 11/25/16 22:00 Salicylates < 25.0 mg/L (30.0-100.0) L 11/25/16 20:40 Urine Opiates Screen NEGATIVE (NEGATIVE) 11/25/16 22:00 Urine Methadone Screen NEGATIVE (NEGATIVE) 11/25/16 22:00 Acetaminophen < 10.0 ug/mL (10.0-30.0) L 11/25/16 20:40 Ur Barbiturates Screen NEGATIVE (NEGATIVE) 11/25/16 22:00 Ur Tricyclics Screen NEGATIVE (NEGATIVE) 11/25/16 22:00 Ur Phencyclidine Scrn NEGATIVE (NEGATIVE) 11/25/16 22:00 Amphetamines Screen NEGATIVE (NEGATIVE) 11/25/16 22:00 U Methamphetamines Scrn NEGATIVE (NEGATIVE) 11/25/16 22:00 U Benzodiazepines Scrn POSITIVE (NEGATIVE) H 11/25/16 22:00 U Cocaine Metab Screen NEGATIVE (NEGATIVE) 11/25/16 22:00 U Cannabinoids Screen NEGATIVE (NEGATIVE) 11/25/16 22:00 Ethyl Alcohol < 10 mg/dL (0-10) 11/25/16 20:40 RPR NONREACTIVE (NONREACTIVE) 11/25/16 20:40 - Physical Exam Vitals and I&O: Vital Signs Temp 97.8 F 12/02/16 05:49 Pulse 64 12/02/16 05:49 Resp 18 12/02/16 05:49 BP 106/61 12/02/16 05:49 Pulse Ox 97 12/02/16 05:49 Intake & Output 12/01/16 12/02/16 12/02/16 18:59 06:59 18:59 Intake Total 850 120 Balance 850 120 Weight (lbs) 68.765 kg Intake: Oral 850 120 Other: # Voids 3 1 # Bowel Movements 1 0 Active Medications: Current Medications Acetaminophen (Tylenol Extra Strength) 500 mg PO Q6HR PRN PRN Reason: Pain (Mild) Last Admin: 12/02/16 04:12 Dose: 500 mg Al Hydrox/Mg Hydrox/Simethicone (Maalox) 30 ml PO Q6H PRN PRN Reason: Dyspepsia Stop: 01/24/17 23:17 Docusate Sodium (Colace) 200 mg PO BID [facility]S [facility] BEDS AT [facility] Stop: 01/27/17 08:59 Last Admin: 12/01/16 17:44 Dose: Not Given Famotidine (Pepcid) 20 mg PO DAILY COUNTS INCLUDE 234 BEDS AT [facility] Stop: 01/25/17 08:59 Last Admin: 12/01/16 09:19 Dose: 20 mg Lorazepam (Ativan) 0.5 mg PO Q8HR PRN; Protocol PRN Reason: Anxiety/agitation Stop: 01/24/17 23:21 Last Admin: 12/02/16 08:59 Dose: 0.5 mg Magnesium Hydroxide (Milk Of Magnesia) 30 ml PO HS PRN PRN Reason: Constipation Stop: 01/24/17 23:17 Mupirocin (Bactroban Oint) 1 appl NS BID COUNTS INCLUDE 234 BEDS AT [facility] Stop: 12/02/16 17:01 Last Admin: 12/01/16 17:45 Dose: 1 appl Quetiapine Fumarate (Seroquel) 50 mg PO BID MARIIA PRN Reason: Protocol Stop: 01/31/17 08:59 Last Admin: 12/02/16 08:59 Dose: 50 mg Zolpidem Tartrate (Ambien) 5 mg PO HS PRN PRN Reason: Insomnia Stop: 01/25/17 09:05 Last Admin: 12/01/16 20:44 Dose: 5 mg General: No acute distress HEENT: Atraumatic Cardiovascular: Regular rate, Normal S1, Normal S2 - Procedures Procedures: Procedures Procedure Code Date EMERGENCY DEPT VISIT 92955 02/03/00 IMMOBILIZ/WOUND ATTN NEC 93.59 08/01/01 Assessment/Plan - Plan Plan: cpm Nutritional Asmnt/Malnutr-PDOC - Dietary Evaluation Malnutrition Findings (Please click <Entered> for more info): Nutritional Asmnt/Malnutrition Start: 11/26/16 13: 08 Text: Status: Complete Freq: Document 11/26/16 13:08 GSUN (Rec: 11/26/16 13:18 GSUN [id number]) Nutritional Asmnt/Malnutrition Patient General Information Nutritional Screening High Risk Screening Diagnosis ER: suspect new onset DM Pertinent Medical Hx/Surgical Hx ER: HTN Subjective Information 81 year old female from SNF. Spoke to pt resting in bed, pt appeared slightly confused, forgetful, easily agitated, not suitable for DM edu. Pt stated usually fair appetite, ate 50% breakfast this AM. Teeth intact, no difficulties eating, became agitated regarding retriving her toothpick from her purse. Pt stated UBW 140lb, CBW bedscale 153.1lb, pt denied recent weight changes. Current Diet Order/ Nutrition Support Regular, ANGELIQUE Pertinent Medications Maalox, Pepcid, MOM Pertinent Labs 11/25: glucose 200H, A1c 6.9H Nutritional Hx/Data Height 1.63 m Height (Calculated Centimeters) 162.6 Current Weight (lbs) 69.445 kg Weight (Calculated Kilograms) 69.4 Weight (Calculated Grams) 10437.0 Usual body Weight (lbs) 140 [place] Body Weight 120 Weight Status Overweight GI Symptoms Cultural/Ethnic/Mandaen Belief Pt denied allergies. Pt dislikes milk, yogurt. Skin Integrity/Comment: Tomás 17. Skin intact. Estimated Nutritional Goals Calories/Kcals/Kg UBW 140lb/63.6kg Kcals Calculated 1590-1908kcal (25-30kcal/kg) Protein Calculated 64g (1g/kg) Fluid: ml 1590-1908ml (1ml/kcal) Nutritional Problem 1. Problem Problem Altered nutrition related laboratory values related to Etiology endocrine dysfunction, " suspect new onset DM" per ER note aeb Signs/Symptoms: A1c 6.9, glucose 200 on adm Intervention/Recommendation Comments 1. Recommend [id number]. 2. FNS noted of pt's fodo preferences. Expected Outcomes/Goals Expected Outcomes/Goals 1. PO intake to meet at least 75% of estimated nutritional needs.
[2016-12-03] MEDS: Acetaminophen 500 MG TAB PO PRN ×3 (00:04→20:17)
--- NOTE | 2016-12-03 09:50 | General Progress Note ---
Subjective - Review of Systems Events since last encounter: patient awake, irritable Subjective: no distress Objective - Results Result Diagrams: 11/25/16 20:40 11/25/16 20:40 Recent Labs: Laboratory Last Values WBC 8.5 Th/cmm (4.8-10.8) 11/25/16 20:40 RBC 5.14 Mil/cmm (3.80-5.20) 11/25/16 20:40 Hgb 14.4 gm/dL (11.7-16.1) 11/25/16 20:40 Hct 43.4 % (35.0-45.0) 11/25/16 20:40 MCV 84.4 fl (81-100) 11/25/16 20:40 MCH 28.0 pg (27.0-31.0) 11/25/16 20:40 MCHC Differential 33.1 pg (28.0-36.0) 11/25/16 20:40 RDW 12.3 % (11.5-20.0) 11/25/16 20:40 Plt Count 395 Th/cmm (150-400) 11/25/16 20:40 MPV 6.7 fl 11/25/16 20:40 Neutrophils % 71.5 % (40.0-80.0) 11/25/16 20:40 Lymphocytes % 17.4 % (20.0-50.0) L 11/25/16 20:40 Monocytes % 9.6 % (2.0-10.0) 11/25/16 20:40 Eosinophils % 1.2 % (0.0-5.0) 11/25/16 20:40 Basophils % 0.3 % (0.0-2.0) 11/25/16 20:40 Sodium 126 mEq/L (136-145) L 11/25/16 20:40 Potassium 3.9 mEq/L (3.5-5.1) 11/25/16 20:40 Chloride 96 mEq/L (98-107) L 11/25/16 20:40 Carbon Dioxide 24.1 mEq/L (21.0-31.0) 11/25/16 20:40 Anion Gap 9.8 (7.0-16.0) 11/25/16 20:40 BUN 13 mg/dL (7-25) 11/25/16 20:40 Creatinine 0.7 mg/dL (0.6-1.2) 11/25/16 20:40 Est GFR ( Amer) TNP 11/25/16 20:40 Est GFR (Non-Af Amer) TNP 11/25/16 20:40 BUN/Creatinine Ratio 18.6 11/25/16 20:40 Glucose 200 mg/dL (70-105) H 11/25/16 20:40 Hemoglobin A1c % 6.9 % (4.0-6.0) H 11/25/16 20:40 Calcium 9.8 mg/dL (8.6-10.3) 11/25/16 20:40 Total Bilirubin 0.4 mg/dL (0.3-1.0) 11/25/16 20:40 AST 11 U/L (13-39) L 11/25/16 20:40 ALT 8 U/L (7-52) 11/25/16 20:40 Alkaline Phosphatase 71 U/L (34-104) 11/25/16 20:40 Troponin I 0.01 ng/mL (0.01-0.05) 11/25/16 20:40 Total Protein 7.6 gm/dL (6.0-8.3) 11/25/16 20:40 Albumin 3.8 gm/dL (3.7-5.3) 11/25/16 20:40 Globulin 3.8 gm/dL 11/25/16 20:40 Albumin/Globulin Ratio 1.0 (1.0-1.8) 11/25/16 20:40 Triglycerides 89 mg/dL (<150) 11/25/16 20:40 Cholesterol 182 mg/dL (<200) 11/25/16 20:40 LDL Cholesterol Direct 124 mg/dL (75-193) 11/25/16 20:40 HDL Cholesterol 52 mg/dL (23-92) 11/25/16 20:40 TSH 1.19 uIU/ml (0.34-5.60) 11/25/16 20:40 Urine Source CLEAN C 11/25/16 22:00 Urine Color YELLOW 11/25/16 22:00 Urine Clarity CLEAR (CLEAR) 11/25/16 22:00 Urine pH 6.5 11/25/16 22:00 Ur Specific [place] 1.010 (1.005-1.030) 11/25/16 22:00 Urine Protein NEGATIVE mg/dL (NEGATIVE) 11/25/16 22:00 Urine Glucose (UA) NEGATIVE mg/dL (NEGATIVE) 11/25/16 22:00 Urine Ketones NEGATIVE mg/dL (NEGATIVE) 11/25/16 22:00 Urine Blood TRACE (NEGATIVE) 11/25/16 22:00 Urine Nitrate NEGATIVE (NEGATIVE) 11/25/16 22:00 Urine Bilirubin NEGATIVE (NEGATIVE) 11/25/16 22:00 Urine Urobilinogen 0.2 E.U./dL (0.2 - 1.0) 11/25/16 22:00 Ur Leukocyte Esterase SMALL (NEGATIVE) H 11/25/16 22:00 Urine RBC 0-2 /hpf (0-5) 11/25/16 22:00 Urine WBC 6-10 /hpf (0-5) H 11/25/16 22:00 Ur Epithelial Cells FEW /lpf (FEW) 11/25/16 22:00 Urine Bacteria FEW /hpf (NONE SEEN) 11/25/16 22:00 Salicylates < 25.0 mg/L (30.0-100.0) L 11/25/16 20:40 Urine Opiates Screen NEGATIVE (NEGATIVE) 11/25/16 22:00 Urine Methadone Screen NEGATIVE (NEGATIVE) 11/25/16 22:00 Acetaminophen < 10.0 ug/mL (10.0-30.0) L 11/25/16 20:40 Ur Barbiturates Screen NEGATIVE (NEGATIVE) 11/25/16 22:00 Ur Tricyclics Screen NEGATIVE (NEGATIVE) 11/25/16 22:00 Ur Phencyclidine Scrn NEGATIVE (NEGATIVE) 11/25/16 22:00 Amphetamines Screen NEGATIVE (NEGATIVE) 11/25/16 22:00 U Methamphetamines Scrn NEGATIVE (NEGATIVE) 11/25/16 22:00 U Benzodiazepines Scrn POSITIVE (NEGATIVE) H 11/25/16 22:00 U Cocaine Metab Screen NEGATIVE (NEGATIVE) 11/25/16 22:00 U Cannabinoids Screen NEGATIVE (NEGATIVE) 11/25/16 22:00 Ethyl Alcohol < 10 mg/dL (0-10) 11/25/16 20:40 RPR NONREACTIVE (NONREACTIVE) 11/25/16 20:40 - Physical Exam Vitals and I&O: Vital Signs Temp 98.4 F 07/06/17 06:56 Pulse 61 12/03/16 06:56 Resp 18 12/03/16 06:56 BP 131/77 12/03/16 06:56 Pulse Ox 97 12/03/16 06:56 Intake & Output 12/02/16 12/03/16 12/03/16 18:59 06:59 18:59 Intake Total 1200 Balance 1200 Intake: Oral 1200 Other: # Voids 2 # Bowel Movements 1 Active Medications: Current Medications Acetaminophen (Tylenol Extra Strength) 500 mg PO Q6HR PRN PRN Reason: Pain (Mild) Last Admin: 12/03/16 00:04 Dose: 500 mg Al Hydrox/Mg Hydrox/Simethicone (Maalox) 30 ml PO Q6H PRN PRN Reason: Dyspepsia Stop: 01/24/17 23:17 Docusate Sodium (Colace) 200 mg PO BID [facility] Stop: 01/27/17 08:59 Last Admin: 12/02/16 17:01 Dose: Not Given Famotidine (Pepcid) 20 mg PO DAILY [facility] Stop: 01/25/17 08:59 Last Admin: 12/02/16 10:14 Dose: Not Given Lorazepam (Ativan) 0.5 mg PO Q8HR PRN; Protocol PRN Reason: Anxiety/agitation Stop: 01/24/17 23:21 Last Admin: 12/02/16 08:59 Dose: 0.5 mg Magnesium Hydroxide (Milk Of Magnesia) 30 ml PO HS PRN PRN Reason: Constipation Stop: 01/24/17 23:17 Quetiapine Fumarate (Seroquel) 50 mg PO BID [facility] Stop: 01/31/17 16:59 Last Admin: 12/02/16 18:44 Dose: Not Given Zolpidem Tartrate (Ambien) 5 mg PO HS PRN PRN Reason: Insomnia Stop: 01/25/17 09:05 Last Admin: 12/03/16 00:04 Dose: 5 mg General: No acute distress HEENT: Atraumatic Cardiovascular: Regular rate, Normal S1, Normal S2 - Procedures Procedures: Procedures Procedure Code Date EMERGENCY DEPT VISIT 05689 02/03/00 IMMOBILIZ/WOUND ATTN NEC 93.59 08/01/01 Assessment/Plan - Plan Plan: cpm Nutritional Asmnt/Malnutr-PDOC - Dietary Evaluation Malnutrition Findings (Please click <Entered> for more info): Nutritional Asmnt/Malnutrition Start: 11/26/16 13: 08 Text: Status: Complete Freq: Document 11/26/16 13:08 PALLAVI (Rec: 11/26/16 13:18 [email or web address]) Nutritional Asmnt/Malnutrition Patient General Information Nutritional Screening High Risk Screening Diagnosis ER: suspect new onset DM Pertinent Medical Hx/Surgical Hx ER: HTN Subjective Information 81 year old female from SNF. Spoke to pt resting in bed, pt appeared slightly confused, forgetful, easily agitated, not suitable for DM edu. Pt stated usually fair appetite, ate 50% breakfast this AM. Teeth intact, no difficulties eating, became agitated regarding retriving her toothpick from her purse. Pt stated UBW 140lb, CBW bedscale 153.1lb, pt denied recent weight changes. Current Diet Order/ Nutrition Support Regular, ANGELIQUE Pertinent Medications Maalox, Pepcid, MOM Pertinent Labs 11/25: glucose 200H, A1c 6.9H Nutritional Hx/Data Height 1.63 m Height (Calculated Centimeters) 162.6 Current Weight (lbs) 69.445 kg Weight (Calculated Kilograms) 69.4 Weight (Calculated Grams) 69474.0 Usual body Weight (lbs) 140 [place] Body Weight 120 Weight Status Overweight GI Symptoms Cultural/Ethnic/Synagogue Belief Pt denied allergies. Pt dislikes milk, yogurt. Skin Integrity/Comment: Tomás 17. Skin intact. Estimated Nutritional Goals Calories/Kcals/Kg UBW 140lb/63.6kg Kcals Calculated 1590-1908kcal (25-30kcal/kg) Protein Calculated 64g (1g/kg) Fluid: ml 1590-1908ml (1ml/kcal) Nutritional Problem 1. Problem Problem Altered nutrition related laboratory values related to Etiology endocrine dysfunction, " suspect new onset DM" per ER note aeb Signs/Symptoms: A1c 6.9, glucose 200 on adm Intervention/Recommendation Comments 1. Recommend [id number]. 2. FNS noted of pt's fodo preferences. Expected Outcomes/Goals Expected Outcomes/Goals 1. PO intake to meet at least 75% of estimated nutritional needs.
--- NOTE | 2016-12-04 09:43 | General Progress Note ---
Subjective - Review of Systems Events since last encounter: patient seems anxious denies any pain Subjective: no distress Objective - Results Result Diagrams: 11/25/16 20:40 11/25/16 20:40 Recent Labs: Laboratory Last Values WBC 8.5 Th/cmm (4.8-10.8) 11/25/16 20:40 RBC 5.14 Mil/cmm (3.80-5.20) 11/25/16 20:40 Hgb 14.4 gm/dL (11.7-16.1) 11/25/16 20:40 Hct 43.4 % (35.0-45.0) 11/25/16 20:40 MCV 84.4 fl (81-100) 11/25/16 20:40 MCH 28.0 pg (27.0-31.0) 11/25/16 20:40 MCHC Differential 33.1 pg (28.0-36.0) 11/25/16 20:40 RDW 12.3 % (11.5-20.0) 11/25/16 20:40 Plt Count 395 Th/cmm (150-400) 11/25/16 20:40 MPV 6.7 fl 11/25/16 20:40 Neutrophils % 71.5 % (40.0-80.0) 11/25/16 20:40 Lymphocytes % 17.4 % (20.0-50.0) L 11/25/16 20:40 Monocytes % 9.6 % (2.0-10.0) 11/25/16 20:40 Eosinophils % 1.2 % (0.0-5.0) 11/25/16 20:40 Basophils % 0.3 % (0.0-2.0) 11/25/16 20:40 Sodium 126 mEq/L (136-145) L 11/25/16 20:40 Potassium 3.9 mEq/L (3.5-5.1) 11/25/16 20:40 Chloride 96 mEq/L (98-107) L 11/25/16 20:40 Carbon Dioxide 24.1 mEq/L (21.0-31.0) 11/25/16 20:40 Anion Gap 9.8 (7.0-16.0) 11/25/16 20:40 BUN 13 mg/dL (7-25) 11/25/16 20:40 Creatinine 0.7 mg/dL (0.6-1.2) 11/25/16 20:40 Est GFR ( Amer) TNP 11/25/16 20:40 Est GFR (Non-Af Amer) TNP 11/25/16 20:40 BUN/Creatinine Ratio 18.6 11/25/16 20:40 Glucose 200 mg/dL (70-105) H 11/25/16 20:40 Hemoglobin A1c % 6.9 % (4.0-6.0) H 11/25/16 20:40 Calcium 9.8 mg/dL (8.6-10.3) 11/25/16 20:40 Total Bilirubin 0.4 mg/dL (0.3-1.0) 11/25/16 20:40 AST 11 U/L (13-39) L 11/25/16 20:40 ALT 8 U/L (7-52) 11/25/16 20:40 Alkaline Phosphatase 71 U/L (34-104) 11/25/16 20:40 Troponin I 0.01 ng/mL (0.01-0.05) 11/25/16 20:40 Total Protein 7.6 gm/dL (6.0-8.3) 11/25/16 20:40 Albumin 3.8 gm/dL (3.7-5.3) 11/25/16 20:40 Globulin 3.8 gm/dL 11/25/16 20:40 Albumin/Globulin Ratio 1.0 (1.0-1.8) 11/25/16 20:40 Triglycerides 89 mg/dL (<150) 11/25/16 20:40 Cholesterol 182 mg/dL (<200) 11/25/16 20:40 LDL Cholesterol Direct 124 mg/dL (75-193) 11/25/16 20:40 HDL Cholesterol 52 mg/dL (23-92) 11/25/16 20:40 TSH 1.19 uIU/ml (0.34-5.60) 11/25/16 20:40 Urine Source CLEAN C 11/25/16 22:00 Urine Color YELLOW 11/25/16 22:00 Urine Clarity CLEAR (CLEAR) 11/25/16 22:00 Urine pH 6.5 11/25/16 22:00 Ur Specific [place] 1.010 (1.005-1.030) 11/25/16 22:00 Urine Protein NEGATIVE mg/dL (NEGATIVE) 11/25/16 22:00 Urine Glucose (UA) NEGATIVE mg/dL (NEGATIVE) 11/25/16 22:00 Urine Ketones NEGATIVE mg/dL (NEGATIVE) 11/25/16 22:00 Urine Blood TRACE (NEGATIVE) 11/25/16 22:00 Urine Nitrate NEGATIVE (NEGATIVE) 11/25/16 22:00 Urine Bilirubin NEGATIVE (NEGATIVE) 11/25/16 22:00 Urine Urobilinogen 0.2 E.U./dL (0.2 - 1.0) 11/25/16 22:00 Ur Leukocyte Esterase SMALL (NEGATIVE) H 11/25/16 22:00 Urine RBC 0-2 /hpf (0-5) 11/25/16 22:00 Urine WBC 6-10 /hpf (0-5) H 11/25/16 22:00 Ur Epithelial Cells FEW /lpf (FEW) 11/25/16 22:00 Urine Bacteria FEW /hpf (NONE SEEN) 11/25/16 22:00 Salicylates < 25.0 mg/L (30.0-100.0) L 11/25/16 20:40 Urine Opiates Screen NEGATIVE (NEGATIVE) 11/25/16 22:00 Urine Methadone Screen NEGATIVE (NEGATIVE) 11/25/16 22:00 Acetaminophen < 10.0 ug/mL (10.0-30.0) L 11/25/16 20:40 Ur Barbiturates Screen NEGATIVE (NEGATIVE) 11/25/16 22:00 Ur Tricyclics Screen NEGATIVE (NEGATIVE) 11/25/16 22:00 Ur Phencyclidine Scrn NEGATIVE (NEGATIVE) 11/25/16 22:00 Amphetamines Screen NEGATIVE (NEGATIVE) 11/25/16 22:00 U Methamphetamines Scrn NEGATIVE (NEGATIVE) 11/25/16 22:00 U Benzodiazepines Scrn POSITIVE (NEGATIVE) H 11/25/16 22:00 U Cocaine Metab Screen NEGATIVE (NEGATIVE) 11/25/16 22:00 U Cannabinoids Screen NEGATIVE (NEGATIVE) 11/25/16 22:00 Ethyl Alcohol < 10 mg/dL (0-10) 11/25/16 20:40 RPR NONREACTIVE (NONREACTIVE) 11/25/16 20:40 - Physical Exam Vitals and I&O: Vital Signs Temp 97.8 F 12/04/16 06:51 Pulse 69 12/04/16 06:51 Resp 18 12/04/16 06:51 BP 158/77 12/04/16 06:51 Pulse Ox 95 12/04/16 06:51 Intake & Output 12/03/16 12/04/16 12/04/16 18:59 06:59 18:59 Intake Total 120 Balance 120 Intake: Oral 120 Other: # Voids 2 Active Medications: Current Medications Acetaminophen (Tylenol Extra Strength) 500 mg PO Q6HR PRN PRN Reason: Pain (Mild) Last Admin: 12/03/16 20:17 Dose: 500 mg Al Hydrox/Mg Hydrox/Simethicone (Maalox) 30 ml PO Q6H PRN PRN Reason: Dyspepsia Stop: 01/24/17 23:17 Docusate Sodium (Colace) 200 mg PO BID [facility] Stop: 01/27/17 08:59 Last Admin: 12/04/16 08:30 Dose: Not Given Famotidine (Pepcid) 20 mg PO DAILY [facility] Stop: 01/25/17 08:59 Last Admin: 12/04/16 08:31 Dose: Not Given Lorazepam (Ativan) 0.5 mg PO Q8HR PRN; Protocol PRN Reason: Anxiety/agitation Stop: 01/24/17 23:21 Last Admin: 12/03/16 20:17 Dose: 0.5 mg Magnesium Hydroxide (Milk Of Magnesia) 30 ml PO HS PRN PRN Reason: Constipation Stop: 01/24/17 23:17 Quetiapine Fumarate (Seroquel) 50 mg PO BID [facility] Stop: 01/31/17 16:59 Last Admin: 12/04/16 08:30 Dose: Not Given Zolpidem Tartrate (Ambien) 5 mg PO HS PRN PRN Reason: Insomnia Stop: 01/25/17 09:05 Last Admin: 12/03/16 21:32 Dose: 5 mg General: No acute distress HEENT: Atraumatic Neck: Thyromegaly Cardiovascular: Regular rate, Normal S1, Normal S2 - Procedures Procedures: Procedures Procedure Code Date EMERGENCY DEPT VISIT 35697 02/03/00 IMMOBILIZ/WOUND ATTN NEC 93.59 08/01/01 Assessment/Plan - Problem List Patient Problems: All Active Problems Diabetes mellitus, new onset (Acute) E11.9 behavioral issues anxiety agitation (Acute) - Plan Plan: as per psych as problems arise will monitor Nutritional Asmnt/Malnutr-PDOC - Dietary Evaluation Malnutrition Findings (Please click <Entered> for more info): Nutritional Asmnt/Malnutrition Start: 11/26/16 13: 08 Text: Status: Complete Freq: Document 11/26/16 13:08 PALLAVI (Rec: 11/26/16 13:18 [email or web address]) Nutritional Asmnt/Malnutrition Patient General Information Nutritional Screening High Risk Screening Diagnosis ER: suspect new onset DM Pertinent Medical Hx/Surgical Hx ER: HTN Subjective Information 81 year old female from SNF. Spoke to pt resting in bed, pt appeared slightly confused, forgetful, easily agitated, not suitable for DM edu. Pt stated usually fair appetite, ate 50% breakfast this AM. Teeth intact, no difficulties eating, became agitated regarding retriving her toothpick from her purse. Pt stated UBW 140lb, CBW bedscale 153.1lb, pt denied recent weight changes. Current Diet Order/ Nutrition Support Regular, ANGELIQUE Pertinent Medications Maalox, Pepcid, MOM Pertinent Labs 11/25: glucose 200H, A1c 6.9H Nutritional Hx/Data Height 1.63 m Height (Calculated Centimeters) 162.6 Current Weight (lbs) 69.445 kg Weight (Calculated Kilograms) 69.4 Weight (Calculated Grams) 29755.0 Usual body Weight (lbs) 140 [place] Body Weight 120 Weight Status Overweight GI Symptoms Cultural/Ethnic/Rastafari Belief Pt denied allergies. Pt dislikes milk, yogurt. Skin Integrity/Comment: Tomás 17. Skin intact. Estimated Nutritional Goals Calories/Kcals/Kg UBW 140lb/63.6kg Kcals Calculated 1590-1908kcal (25-30kcal/kg) Protein Calculated 64g (1g/kg) Fluid: ml 1590-1908ml (1ml/kcal) Nutritional Problem 1. Problem Problem Altered nutrition related laboratory values related to Etiology endocrine dysfunction, " suspect new onset DM" per ER note aeb Signs/Symptoms: A1c 6.9, glucose 200 on adm Intervention/Recommendation Comments 1. Recommend [id number]. 2. FNS noted of pt's fodo preferences. Expected Outcomes/Goals Expected Outcomes/Goals 1. PO intake to meet at least 75% of estimated nutritional needs.
--- NOTE | 2016-12-04 10:36 | History and Physical ---
History of Present Illness - HPI Chief Complaint: anxiety HPI: 81 year old female patient presented from [place] for increase anxiety and hyperventilation at times Vital Signs: Last Vital Signs Temp 97.8 F 12/04/16 06:51 Pulse 69 12/04/16 06:51 Resp 18 12/04/16 06:51 BP 158/77 12/04/16 06:51 Pulse Ox 95 12/04/16 06:51 Past Medical History Cardiovascular: Report: HTN Pulmonary: Report: No Pertinent Hx MEDIA RELATIONS SPECIALIST: Report: No Pertinent Hx GI: Report: No Pertinent Hx Psych: Report: Anxiety, Other (insomnia) Musculoskeletal: Report: No Pertinent Hx Rheumatologic: Report: No pertinent Hx Infectious Disease: Report: No Pertinent Hx Renal/: Report: No Pertinent Hx Dermatology: Report: No Pertinent Hx - Past Surgical History Past Surgical History: No pertinent Hx Social History Smoke: No Alcohol: None Drugs: None Lives: Care Home Domestic Violence: Negative Health Maintenance Health Maintenance: Other - Medications Home Medications: Home Medication Medication Instructions Recorded Type Acetaminophen [Tylenol Extra 500 mg PO Q6HR PRN 11/25/16 History Strength] Carbamide Peroxide [Debrox Otic 4 drop RIGHT EAR BID 11/25/16 History Drops] Famotidine 20 mg PO DAILY 11/25/16 History Lorazepam [Ativan] 0.5 mg PO Q8HR PRN 11/25/16 History Temazepam [Restoril*] 7.5 mg PO HS PRN 11/25/16 History - Allergies Allergies/Adverse Reactions: Allergies Allergy/AdvReac Type Severity Reaction Status Date / Time codeine Allergy Verified 11/25/16 20:24 Review of Systems - Review of Systems Constitutional: Report: No Significant, Other (anxious ) Eyes: Report: No Significant ENT: Report: No Significant Respiratory: Report: No Significant Cardiovascular: Report: No Significant Gastrointestinal: Report: No Significant Genitourinary: Report: No Significant Musculoskeletal: Report: No Significant Skin: Report: No Significant Neurological: Report: No Significant Physical Exam - Physical Exam HEENT: Report: Ears Nose Throat within normal limits Neck: Report: Within normal limits Cardiovascular Systems: Report: +s1/s2 noted Respiratory: Report: Breath Sounds are within normal limits Abdomen: Report: Non-tender to palpation Back: Report: Inspection of back is within normal limits. Extremities: Report: Non-tender to palpation. Skin: Denies: Color of skin is within normal limits (soft tissue mass at rt forearm ) Neuro/Psych: Report: Mood affect is within normal limits - Lab Results All Lab Results last 24 hours: Laboratory Last Values WBC 8.5 Th/cmm (4.8-10.8) 11/25/16 20:40 RBC 5.14 Mil/cmm (3.80-5.20) 11/25/16 20:40 Hgb 14.4 gm/dL (11.7-16.1) 11/25/16 20:40 Hct 43.4 % (35.0-45.0) 11/25/16 20:40 MCV 84.4 fl (81-100) 11/25/16 20:40 MCH 28.0 pg (27.0-31.0) 11/25/16 20:40 MCHC Differential 33.1 pg (28.0-36.0) 11/25/16 20:40 RDW 12.3 % (11.5-20.0) 11/25/16 20:40 Plt Count 395 Th/cmm (150-400) 11/25/16 20:40 MPV 6.7 fl 11/25/16 20:40 Neutrophils % 71.5 % (40.0-80.0) 11/25/16 20:40 Lymphocytes % 17.4 % (20.0-50.0) L 11/25/16 20:40 Monocytes % 9.6 % (2.0-10.0) 11/25/16 20:40 Eosinophils % 1.2 % (0.0-5.0) 11/25/16 20:40 Basophils % 0.3 % (0.0-2.0) 11/25/16 20:40 Sodium 126 mEq/L (136-145) L 11/25/16 20:40 Potassium 3.9 mEq/L (3.5-5.1) 11/25/16 20:40 Chloride 96 mEq/L (98-107) L 11/25/16 20:40 Carbon Dioxide 24.1 mEq/L (21.0-31.0) 11/25/16 20:40 Anion Gap 9.8 (7.0-16.0) 11/25/16 20:40 BUN 13 mg/dL (7-25) 11/25/16 20:40 Creatinine 0.7 mg/dL (0.6-1.2) 11/25/16 20:40 Est GFR ( Amer) TNP 11/25/16 20:40 Est GFR (Non-Af Amer) TNP 11/25/16 20:40 BUN/Creatinine Ratio 18.6 11/25/16 20:40 Glucose 200 mg/dL (70-105) H 11/25/16 20:40 Hemoglobin A1c % 6.9 % (4.0-6.0) H 11/25/16 20:40 Calcium 9.8 mg/dL (8.6-10.3) 11/25/16 20:40 Total Bilirubin 0.4 mg/dL (0.3-1.0) 11/25/16 20:40 AST 11 U/L (13-39) L 11/25/16 20:40 ALT 8 U/L (7-52) 11/25/16 20:40 Alkaline Phosphatase 71 U/L (34-104) 11/25/16 20:40 Troponin I 0.01 ng/mL (0.01-0.05) 11/25/16 20:40 Total Protein 7.6 gm/dL (6.0-8.3) 11/25/16 20:40 Albumin 3.8 gm/dL (3.7-5.3) 11/25/16 20:40 Globulin 3.8 gm/dL 11/25/16 20:40 Albumin/Globulin Ratio 1.0 (1.0-1.8) 11/25/16 20:40 Triglycerides 89 mg/dL (<150) 11/25/16 20:40 Cholesterol 182 mg/dL (<200) 11/25/16 20:40 LDL Cholesterol Direct 124 mg/dL (75-193) 11/25/16 20:40 HDL Cholesterol 52 mg/dL (23-92) 11/25/16 20:40 TSH 1.19 uIU/ml (0.34-5.60) 11/25/16 20:40 Urine Source CLEAN C 11/25/16 22:00 Urine Color YELLOW 11/25/16 22:00 Urine Clarity CLEAR (CLEAR) 11/25/16 22:00 Urine pH 6.5 11/25/16 22:00 Ur Specific [place] 1.010 (1.005-1.030) 11/25/16 22:00 Urine Protein NEGATIVE mg/dL (NEGATIVE) 11/25/16 22:00 Urine Glucose (UA) NEGATIVE mg/dL (NEGATIVE) 11/25/16 22:00 Urine Ketones NEGATIVE mg/dL (NEGATIVE) 11/25/16 22:00 Urine Blood TRACE (NEGATIVE) 11/25/16 22:00 Urine Nitrate NEGATIVE (NEGATIVE) 11/25/16 22:00 Urine Bilirubin NEGATIVE (NEGATIVE) 11/25/16 22:00 Urine Urobilinogen 0.2 E.U./dL (0.2 - 1.0) 11/25/16 22:00 Ur Leukocyte Esterase SMALL (NEGATIVE) H 11/25/16 22:00 Urine RBC 0-2 /hpf (0-5) 11/25/16 22:00 Urine WBC 6-10 /hpf (0-5) H 11/25/16 22:00 Ur Epithelial Cells FEW /lpf (FEW) 11/25/16 22:00 Urine Bacteria FEW /hpf (NONE SEEN) 11/25/16 22:00 Salicylates < 25.0 mg/L (30.0-100.0) L 11/25/16 20:40 Urine Opiates Screen NEGATIVE (NEGATIVE) 11/25/16 22:00 Urine Methadone Screen NEGATIVE (NEGATIVE) 11/25/16 22:00 Acetaminophen < 10.0 ug/mL (10.0-30.0) L 11/25/16 20:40 Ur Barbiturates Screen NEGATIVE (NEGATIVE) 11/25/16 22:00 Ur Tricyclics Screen NEGATIVE (NEGATIVE) 11/25/16 22:00 Ur Phencyclidine Scrn NEGATIVE (NEGATIVE) 11/25/16 22:00 Amphetamines Screen NEGATIVE (NEGATIVE) 11/25/16 22:00 U Methamphetamines Scrn NEGATIVE (NEGATIVE) 11/25/16 22:00 U Benzodiazepines Scrn POSITIVE (NEGATIVE) H 11/25/16 22:00 U Cocaine Metab Screen NEGATIVE (NEGATIVE) 11/25/16 22:00 U Cannabinoids Screen NEGATIVE (NEGATIVE) 11/25/16 22:00 Ethyl Alcohol < 10 mg/dL (0-10) 11/25/16 20:40 RPR NONREACTIVE (NONREACTIVE) 11/25/16 20:40 - Assessment Assessment: Current Active Problems Problem Status Onset Diabetes mellitus, new onset Acute behavioral issues anxiety agitation Acute - Plan Plan: as per psych as problems arise will monitor
--- NOTE | 2016-12-06 10:05 | General Progress Note ---
Subjective - Review of Systems Events since last encounter: no distress no change Subjective: no distress Objective - Results Result Diagrams: 11/25/16 20:40 11/25/16 20:40 Recent Labs: Laboratory Last Values WBC 8.5 Th/cmm (4.8-10.8) 11/25/16 20:40 RBC 5.14 Mil/cmm (3.80-5.20) 11/25/16 20:40 Hgb 14.4 gm/dL (11.7-16.1) 11/25/16 20:40 Hct 43.4 % (35.0-45.0) 11/25/16 20:40 MCV 84.4 fl (81-100) 11/25/16 20:40 MCH 28.0 pg (27.0-31.0) 11/25/16 20:40 MCHC Differential 33.1 pg (28.0-36.0) 11/25/16 20:40 RDW 12.3 % (11.5-20.0) 11/25/16 20:40 Plt Count 395 Th/cmm (150-400) 11/25/16 20:40 MPV 6.7 fl 11/25/16 20:40 Neutrophils % 71.5 % (40.0-80.0) 11/25/16 20:40 Lymphocytes % 17.4 % (20.0-50.0) L 11/25/16 20:40 Monocytes % 9.6 % (2.0-10.0) 11/25/16 20:40 Eosinophils % 1.2 % (0.0-5.0) 11/25/16 20:40 Basophils % 0.3 % (0.0-2.0) 11/25/16 20:40 Sodium 126 mEq/L (136-145) L 11/25/16 20:40 Potassium 3.9 mEq/L (3.5-5.1) 11/25/16 20:40 Chloride 96 mEq/L (98-107) L 11/25/16 20:40 Carbon Dioxide 24.1 mEq/L (21.0-31.0) 11/25/16 20:40 Anion Gap 9.8 (7.0-16.0) 11/25/16 20:40 BUN 13 mg/dL (7-25) 11/25/16 20:40 Creatinine 0.7 mg/dL (0.6-1.2) 11/25/16 20:40 Est GFR ( Amer) TNP 11/25/16 20:40 Est GFR (Non-Af Amer) TNP 11/25/16 20:40 BUN/Creatinine Ratio 18.6 11/25/16 20:40 Glucose 200 mg/dL (70-105) H 11/25/16 20:40 Hemoglobin A1c % 6.9 % (4.0-6.0) H 11/25/16 20:40 Calcium 9.8 mg/dL (8.6-10.3) 11/25/16 20:40 Total Bilirubin 0.4 mg/dL (0.3-1.0) 11/25/16 20:40 AST 11 U/L (13-39) L 11/25/16 20:40 ALT 8 U/L (7-52) 11/25/16 20:40 Alkaline Phosphatase 71 U/L (34-104) 11/25/16 20:40 Troponin I 0.01 ng/mL (0.01-0.05) 11/25/16 20:40 Total Protein 7.6 gm/dL (6.0-8.3) 11/25/16 20:40 Albumin 3.8 gm/dL (3.7-5.3) 11/25/16 20:40 Globulin 3.8 gm/dL 11/25/16 20:40 Albumin/Globulin Ratio 1.0 (1.0-1.8) 11/25/16 20:40 Triglycerides 89 mg/dL (<150) 11/25/16 20:40 Cholesterol 182 mg/dL (<200) 11/25/16 20:40 LDL Cholesterol Direct 124 mg/dL (75-193) 11/25/16 20:40 HDL Cholesterol 52 mg/dL (23-92) 11/25/16 20:40 TSH 1.19 uIU/ml (0.34-5.60) 11/25/16 20:40 Urine Source CLEAN C 11/25/16 22:00 Urine Color YELLOW 11/25/16 22:00 Urine Clarity CLEAR (CLEAR) 11/25/16 22:00 Urine pH 6.5 11/25/16 22:00 Ur Specific [place] 1.010 (1.005-1.030) 11/25/16 22:00 Urine Protein NEGATIVE mg/dL (NEGATIVE) 11/25/16 22:00 Urine Glucose (UA) NEGATIVE mg/dL (NEGATIVE) 11/25/16 22:00 Urine Ketones NEGATIVE mg/dL (NEGATIVE) 11/25/16 22:00 Urine Blood TRACE (NEGATIVE) 11/25/16 22:00 Urine Nitrate NEGATIVE (NEGATIVE) 11/25/16 22:00 Urine Bilirubin NEGATIVE (NEGATIVE) 11/25/16 22:00 Urine Urobilinogen 0.2 E.U./dL (0.2 - 1.0) 11/25/16 22:00 Ur Leukocyte Esterase SMALL (NEGATIVE) H 11/25/16 22:00 Urine RBC 0-2 /hpf (0-5) 11/25/16 22:00 Urine WBC 6-10 /hpf (0-5) H 11/25/16 22:00 Ur Epithelial Cells FEW /lpf (FEW) 11/25/16 22:00 Urine Bacteria FEW /hpf (NONE SEEN) 11/25/16 22:00 Salicylates < 25.0 mg/L (30.0-100.0) L 11/25/16 20:40 Urine Opiates Screen NEGATIVE (NEGATIVE) 11/25/16 22:00 Urine Methadone Screen NEGATIVE (NEGATIVE) 11/25/16 22:00 Acetaminophen < 10.0 ug/mL (10.0-30.0) L 11/25/16 20:40 Ur Barbiturates Screen NEGATIVE (NEGATIVE) 11/25/16 22:00 Ur Tricyclics Screen NEGATIVE (NEGATIVE) 11/25/16 22:00 Ur Phencyclidine Scrn NEGATIVE (NEGATIVE) 11/25/16 22:00 Amphetamines Screen NEGATIVE (NEGATIVE) 11/25/16 22:00 U Methamphetamines Scrn NEGATIVE (NEGATIVE) 11/25/16 22:00 U Benzodiazepines Scrn POSITIVE (NEGATIVE) H 11/25/16 22:00 U Cocaine Metab Screen NEGATIVE (NEGATIVE) 11/25/16 22:00 U Cannabinoids Screen NEGATIVE (NEGATIVE) 11/25/16 22:00 Ethyl Alcohol < 10 mg/dL (0-10) 11/25/16 20:40 RPR NONREACTIVE (NONREACTIVE) 11/25/16 20:40 - Physical Exam Vitals and I&O: Vital Signs Temp 98.1 F 12/05/16 16:06 Pulse 76 12/05/16 16:06 Resp 20 12/05/16 16:06 BP 109/60 12/05/16 16:06 Pulse Ox 96 12/05/16 16:06 Intake & Output 12/05/16 12/06/16 12/06/16 18:59 06:59 18:59 Intake Total 720 Balance 720 Intake: Oral 720 Other: # Voids 3 # Bowel Movements 1 Active Medications: Current Medications Acetaminophen (Tylenol Extra Strength) 500 mg PO Q6HR PRN PRN Reason: Pain (Mild) Last Admin: 12/03/16 20:17 Dose: 500 mg Al Hydrox/Mg Hydrox/Simethicone (Maalox) 30 ml PO Q6H PRN PRN Reason: Dyspepsia Stop: 01/24/17 23:17 Docusate Sodium (Colace) 200 mg PO BID [facility] Stop: 01/27/17 08:59 Last Admin: 12/06/16 08:04 Dose: 200 mg Famotidine (Pepcid) 20 mg PO DAILY [facility] Stop: 01/25/17 08:59 Last Admin: 12/06/16 08:04 Dose: 20 mg Lorazepam (Ativan) 0.5 mg PO Q8HR PRN; Protocol PRN Reason: Anxiety/agitation Stop: 01/24/17 23:21 Last Admin: 12/05/16 23:09 Dose: 0.5 mg Magnesium Hydroxide (Milk Of Magnesia) 30 ml PO HS PRN PRN Reason: Constipation Stop: 01/24/17 23:17 Quetiapine Fumarate (Seroquel) 75 mg PO BID [facility] Stop: 01/31/17 16:59 Last Admin: 12/06/16 08:04 Dose: 75 mg Zolpidem Tartrate (Ambien) 5 mg PO HS PRN PRN Reason: Insomnia Stop: 01/25/17 09:05 Last Admin: 12/03/16 21:32 Dose: 5 mg General: No acute distress HEENT: Atraumatic Neck: Thyromegaly Cardiovascular: Regular rate, Normal S1, Normal S2 - Procedures Procedures: Procedures Procedure Code Date EMERGENCY DEPT VISIT 36221 02/03/00 IMMOBILIZ/WOUND ATTN NEC 93.59 08/01/01 Assessment/Plan - Problem List Patient Problems: All Active Problems Diabetes mellitus, new onset (Acute) E11.9 behavioral issues anxiety agitation (Acute) - Assessment Assessment: Current Active Problems Problem Status Onset Diabetes mellitus, new onset Acute behavioral issues anxiety agitation Acute - Plan Plan: as per psych as problems arise will monitor Nutritional Asmnt/Malnutr-PDOC - Dietary Evaluation Malnutrition Findings (Please click <Entered> for more info): Nutritional Asmnt/Malnutrition Start: 11/26/16 13: 08 Text: Status: Complete Freq: Document 11/26/16 13:08 GSUN (Rec: 11/26/16 13:18 [id number]) Nutritional Asmnt/Malnutrition Patient General Information Nutritional Screening High Risk Screening Diagnosis ER: suspect new onset DM Pertinent Medical Hx/Surgical Hx ER: HTN Subjective Information 81 year old female from SNF. Spoke to pt resting in bed, pt appeared slightly confused, forgetful, easily agitated, not suitable for DM edu. Pt stated usually fair appetite, ate 50% breakfast this AM. Teeth intact, no difficulties eating, became agitated regarding retriving her toothpick from her purse. Pt stated UBW 140lb, CBW bedscale 153.1lb, pt denied recent weight changes. Current Diet Order/ Nutrition Support Regular, ANGELIQUE Pertinent Medications Maalox, Pepcid, MOM Pertinent Labs 11/25: glucose 200H, A1c 6.9H Nutritional Hx/Data Height 1.63 m Height (Calculated Centimeters) 162.6 Current Weight (lbs) 69.445 kg Weight (Calculated Kilograms) 69.4 Weight (Calculated Grams) 24221.0 Usual body Weight (lbs) 140 [place] Body Weight 120 Weight Status Overweight GI Symptoms Cultural/Ethnic/Congregation Belief Pt denied allergies. Pt dislikes milk, yogurt. Skin Integrity/Comment: Tomás 17. Skin intact. Estimated Nutritional Goals Calories/Kcals/Kg UBW 140lb/63.6kg Kcals Calculated 1590-1908kcal (25-30kcal/kg) Protein Calculated 64g (1g/kg) Fluid: ml 1590-1908ml (1ml/kcal) Nutritional Problem 1. Problem Problem Altered nutrition related laboratory values related to Etiology endocrine dysfunction, " suspect new onset DM" per ER note aeb Signs/Symptoms: A1c 6.9, glucose 200 on adm Intervention/Recommendation Comments 1. Recommend [id number]. 2. FNS noted of pt's fodo preferences. Expected Outcomes/Goals Expected Outcomes/Goals 1. PO intake to meet at least 75% of estimated nutritional needs.
--- NOTE | 2016-12-07 10:50 | General Progress Note ---
Subjective - Review of Systems Service Date: 12/07/16 Subjective: no distress pt denies any pain or discomfort no acute distress Objective - Results Result Diagrams: 11/25/16 20:40 11/25/16 20:40 Recent Labs: Laboratory Last Values WBC 8.5 Th/cmm (4.8-10.8) 11/25/16 20:40 RBC 5.14 Mil/cmm (3.80-5.20) 11/25/16 20:40 Hgb 14.4 gm/dL (11.7-16.1) 11/25/16 20:40 Hct 43.4 % (35.0-45.0) 11/25/16 20:40 MCV 84.4 fl (81-100) 11/25/16 20:40 MCH 28.0 pg (27.0-31.0) 11/25/16 20:40 MCHC Differential 33.1 pg (28.0-36.0) 11/25/16 20:40 RDW 12.3 % (11.5-20.0) 11/25/16 20:40 Plt Count 395 Th/cmm (150-400) 11/25/16 20:40 MPV 6.7 fl 11/25/16 20:40 Neutrophils % 71.5 % (40.0-80.0) 11/25/16 20:40 Lymphocytes % 17.4 % (20.0-50.0) L 11/25/16 20:40 Monocytes % 9.6 % (2.0-10.0) 11/25/16 20:40 Eosinophils % 1.2 % (0.0-5.0) 11/25/16 20:40 Basophils % 0.3 % (0.0-2.0) 11/25/16 20:40 Sodium 126 mEq/L (136-145) L 11/25/16 20:40 Potassium 3.9 mEq/L (3.5-5.1) 11/25/16 20:40 Chloride 96 mEq/L (98-107) L 11/25/16 20:40 Carbon Dioxide 24.1 mEq/L (21.0-31.0) 11/25/16 20:40 Anion Gap 9.8 (7.0-16.0) 11/25/16 20:40 BUN 13 mg/dL (7-25) 11/25/16 20:40 Creatinine 0.7 mg/dL (0.6-1.2) 11/25/16 20:40 Est GFR ( Amer) TNP 11/25/16 20:40 Est GFR (Non-Af Amer) TNP 11/25/16 20:40 BUN/Creatinine Ratio 18.6 11/25/16 20:40 Glucose 200 mg/dL (70-105) H 11/25/16 20:40 Hemoglobin A1c % 6.9 % (4.0-6.0) H 11/25/16 20:40 Calcium 9.8 mg/dL (8.6-10.3) 11/25/16 20:40 Total Bilirubin 0.4 mg/dL (0.3-1.0) 11/25/16 20:40 AST 11 U/L (13-39) L 11/25/16 20:40 ALT 8 U/L (7-52) 11/25/16 20:40 Alkaline Phosphatase 71 U/L (34-104) 11/25/16 20:40 Troponin I 0.01 ng/mL (0.01-0.05) 11/25/16 20:40 Total Protein 7.6 gm/dL (6.0-8.3) 11/25/16 20:40 Albumin 3.8 gm/dL (3.7-5.3) 11/25/16 20:40 Globulin 3.8 gm/dL 11/25/16 20:40 Albumin/Globulin Ratio 1.0 (1.0-1.8) 11/25/16 20:40 Triglycerides 89 mg/dL (<150) 11/25/16 20:40 Cholesterol 182 mg/dL (<200) 11/25/16 20:40 LDL Cholesterol Direct 124 mg/dL (75-193) 11/25/16 20:40 HDL Cholesterol 52 mg/dL (23-92) 11/25/16 20:40 TSH 1.19 uIU/ml (0.34-5.60) 11/25/16 20:40 Urine Source CLEAN C 11/25/16 22:00 Urine Color YELLOW 11/25/16 22:00 Urine Clarity CLEAR (CLEAR) 11/25/16 22:00 Urine pH 6.5 11/25/16 22:00 Ur Specific [place] 1.010 (1.005-1.030) 11/25/16 22:00 Urine Protein NEGATIVE mg/dL (NEGATIVE) 11/25/16 22:00 Urine Glucose (UA) NEGATIVE mg/dL (NEGATIVE) 11/25/16 22:00 Urine Ketones NEGATIVE mg/dL (NEGATIVE) 11/25/16 22:00 Urine Blood TRACE (NEGATIVE) 11/25/16 22:00 Urine Nitrate NEGATIVE (NEGATIVE) 11/25/16 22:00 Urine Bilirubin NEGATIVE (NEGATIVE) 11/25/16 22:00 Urine Urobilinogen 0.2 E.U./dL (0.2 - 1.0) 11/25/16 22:00 Ur Leukocyte Esterase SMALL (NEGATIVE) H 11/25/16 22:00 Urine RBC 0-2 /hpf (0-5) 11/25/16 22:00 Urine WBC 6-10 /hpf (0-5) H 11/25/16 22:00 Ur Epithelial Cells FEW /lpf (FEW) 11/25/16 22:00 Urine Bacteria FEW /hpf (NONE SEEN) 11/25/16 22:00 Salicylates < 25.0 mg/L (30.0-100.0) L 11/25/16 20:40 Urine Opiates Screen NEGATIVE (NEGATIVE) 11/25/16 22:00 Urine Methadone Screen NEGATIVE (NEGATIVE) 11/25/16 22:00 Acetaminophen < 10.0 ug/mL (10.0-30.0) L 11/25/16 20:40 Ur Barbiturates Screen NEGATIVE (NEGATIVE) 11/25/16 22:00 Ur Tricyclics Screen NEGATIVE (NEGATIVE) 11/25/16 22:00 Ur Phencyclidine Scrn NEGATIVE (NEGATIVE) 11/25/16 22:00 Amphetamines Screen NEGATIVE (NEGATIVE) 11/25/16 22:00 U Methamphetamines Scrn NEGATIVE (NEGATIVE) 11/25/16 22:00 U Benzodiazepines Scrn POSITIVE (NEGATIVE) H 11/25/16 22:00 U Cocaine Metab Screen NEGATIVE (NEGATIVE) 11/25/16 22:00 U Cannabinoids Screen NEGATIVE (NEGATIVE) 11/25/16 22:00 Ethyl Alcohol < 10 mg/dL (0-10) 11/25/16 20:40 RPR NONREACTIVE (NONREACTIVE) 11/25/16 20:40 - Physical Exam Vitals and I&O: Vital Signs Temp 97.7 F 12/07/16 05:28 Pulse 56 12/07/16 05:28 Resp 16 12/07/16 05:28 BP 95/57 12/07/16 05:28 Pulse Ox 96 12/07/16 05:28 Active Medications: Current Medications Acetaminophen (Tylenol Extra Strength) 500 mg PO Q6HR PRN PRN Reason: Pain (Mild) Last Admin: 12/03/16 20:17 Dose: 500 mg Al Hydrox/Mg Hydrox/Simethicone (Maalox) 30 ml PO Q6H PRN PRN Reason: Dyspepsia Stop: 01/24/17 23:17 Docusate Sodium (Colace) 200 mg PO BID [facility] Stop: 01/27/17 08:59 Last Admin: 12/07/16 08:16 Dose: 200 mg Famotidine (Pepcid) 20 mg PO DAILY [facility] Stop: 01/25/17 08:59 Last Admin: 12/07/16 08:16 Dose: 20 mg Lorazepam (Ativan) 0.5 mg PO Q8HR PRN; Protocol PRN Reason: Anxiety/agitation Stop: 01/24/17 23:21 Last Admin: 12/05/16 23:09 Dose: 0.5 mg Magnesium Hydroxide (Milk Of Magnesia) 30 ml PO HS PRN PRN Reason: Constipation Stop: 01/24/17 23:17 Quetiapine Fumarate (Seroquel) 75 mg PO BID [facility] Stop: 01/31/17 16:59 Last Admin: 12/07/16 08:16 Dose: 75 mg Zolpidem Tartrate (Ambien) 5 mg PO HS PRN PRN Reason: Insomnia Stop: 01/25/17 09:05 Last Admin: 12/03/16 21:32 Dose: 5 mg General: No acute distress HEENT: Atraumatic Neck: Thyromegaly Cardiovascular: Regular rate, Normal S1, Normal S2 - Procedures Procedures: Procedures Procedure Code Date EMERGENCY DEPT VISIT 22259 02/03/00 IMMOBILIZ/WOUND ATTN NEC 93.59 08/01/01 Assessment/Plan - Problem List Patient Problems: All Active Problems Diabetes mellitus, new onset (Acute) E11.9 behavioral issues anxiety agitation (Acute) - Assessment Assessment: Current Active Problems Problem Status Onset Diabetes mellitus, new onset Acute behavioral issues anxiety agitation Acute - Plan Plan: as per psych as problems arise will monitor Nutritional Asmnt/Malnutr-PDOC - Dietary Evaluation Malnutrition Findings (Please click <Entered> for more info): Nutritional Asmnt/Malnutrition Start: 11/26/16 13: 08 Text: Status: Complete Freq: Document 11/26/16 13:08 PALLAVI (Rec: 11/26/16 13:18 [id number]) Nutritional Asmnt/Malnutrition Patient General Information Nutritional Screening High Risk Screening Diagnosis ER: suspect new onset DM Pertinent Medical Hx/Surgical Hx ER: HTN Subjective Information 81 year old female from SNF. Spoke to pt resting in bed, pt appeared slightly confused, forgetful, easily agitated, not suitable for DM edu. Pt stated usually fair appetite, ate 50% breakfast this AM. Teeth intact, no difficulties eating, became agitated regarding retriving her toothpick from her purse. Pt stated UBW 140lb, CBW bedscale 153.1lb, pt denied recent weight changes. Current Diet Order/ Nutrition Support Regular, ANGELIQUE Pertinent Medications Maalox, Pepcid, MOM Pertinent Labs 11/25: glucose 200H, A1c 6.9H Nutritional Hx/Data Height 1.63 m Height (Calculated Centimeters) 162.6 Current Weight (lbs) 69.445 kg Weight (Calculated Kilograms) 69.4 Weight (Calculated Grams) 12412.0 Usual body Weight (lbs) 140 [place] Body Weight 120 Weight Status Overweight GI Symptoms Cultural/Ethnic/O[employer]ental [employer] Belief Pt denied allergies. Pt dislikes milk, yogurt. Skin Integrity/Comment: Tomás 17. Skin intact. Estimated Nutritional Goals Calories/Kcals/Kg UBW 140lb/63.6kg Kcals Calculated 1590-1908kcal (25-30kcal/kg) Protein Calculated 64g (1g/kg) Fluid: ml 1590-1908ml (1ml/kcal) Nutritional Problem 1. Problem Problem Altered nutrition related laboratory values related to Etiology endocrine dysfunction, " suspect new onset DM" per ER note aeb Signs/Symptoms: A1c 6.9, glucose 200 on adm Intervention/Recommendation Comments 1. Recommend [id number]. 2. FNS noted of pt's fodo preferences. Expected Outcomes/Goals Expected Outcomes/Goals 1. PO intake to meet at least 75% of estimated nutritional needs.
[2016-12-08] MEDS: Acetaminophen 500 MG TAB PO PRN ×3 (01:41→23:05)
--- NOTE | 2016-12-08 11:49 | General Progress Note ---
Subjective - Review of Systems Service Date: 12/08/16 Subjective: no distress pt denies any pain or discomfort no acute distress Objective - Results Result Diagrams: 11/25/16 20:40 11/25/16 20:40 Recent Labs: Laboratory Last Values WBC 8.5 Th/cmm (4.8-10.8) 11/25/16 20:40 RBC 5.14 Mil/cmm (3.80-5.20) 11/25/16 20:40 Hgb 14.4 gm/dL (11.7-16.1) 11/25/16 20:40 Hct 43.4 % (35.0-45.0) 11/25/16 20:40 MCV 84.4 fl (81-100) 11/25/16 20:40 MCH 28.0 pg (27.0-31.0) 11/25/16 20:40 MCHC Differential 33.1 pg (28.0-36.0) 11/25/16 20:40 RDW 12.3 % (11.5-20.0) 11/25/16 20:40 Plt Count 395 Th/cmm (150-400) 11/25/16 20:40 MPV 6.7 fl 11/25/16 20:40 Neutrophils % 71.5 % (40.0-80.0) 11/25/16 20:40 Lymphocytes % 17.4 % (20.0-50.0) L 11/25/16 20:40 Monocytes % 9.6 % (2.0-10.0) 11/25/16 20:40 Eosinophils % 1.2 % (0.0-5.0) 11/25/16 20:40 Basophils % 0.3 % (0.0-2.0) 11/25/16 20:40 Sodium 126 mEq/L (136-145) L 11/25/16 20:40 Potassium 3.9 mEq/L (3.5-5.1) 11/25/16 20:40 Chloride 96 mEq/L (98-107) L 11/25/16 20:40 Carbon Dioxide 24.1 mEq/L (21.0-31.0) 11/25/16 20:40 Anion Gap 9.8 (7.0-16.0) 11/25/16 20:40 BUN 13 mg/dL (7-25) 11/25/16 20:40 Creatinine 0.7 mg/dL (0.6-1.2) 11/25/16 20:40 Est GFR ( Amer) TNP 11/25/16 20:40 Est GFR (Non-Af Amer) TNP 11/25/16 20:40 BUN/Creatinine Ratio 18.6 11/25/16 20:40 Glucose 200 mg/dL (70-105) H 11/25/16 20:40 Hemoglobin A1c % 6.9 % (4.0-6.0) H 11/25/16 20:40 Calcium 9.8 mg/dL (8.6-10.3) 11/25/16 20:40 Total Bilirubin 0.4 mg/dL (0.3-1.0) 11/25/16 20:40 AST 11 U/L (13-39) L 11/25/16 20:40 ALT 8 U/L (7-52) 11/25/16 20:40 Alkaline Phosphatase 71 U/L (34-104) 11/25/16 20:40 Troponin I 0.01 ng/mL (0.01-0.05) 11/25/16 20:40 Total Protein 7.6 gm/dL (6.0-8.3) 11/25/16 20:40 Albumin 3.8 gm/dL (3.7-5.3) 11/25/16 20:40 Globulin 3.8 gm/dL 11/25/16 20:40 Albumin/Globulin Ratio 1.0 (1.0-1.8) 11/25/16 20:40 Triglycerides 89 mg/dL (<150) 11/25/16 20:40 Cholesterol 182 mg/dL (<200) 11/25/16 20:40 LDL Cholesterol Direct 124 mg/dL (75-193) 11/25/16 20:40 HDL Cholesterol 52 mg/dL (23-92) 11/25/16 20:40 TSH 1.19 uIU/ml (0.34-5.60) 11/25/16 20:40 Urine Source CLEAN C 11/25/16 22:00 Urine Color YELLOW 11/25/16 22:00 Urine Clarity CLEAR (CLEAR) 11/25/16 22:00 Urine pH 6.5 11/25/16 22:00 Ur Specific [place] 1.010 (1.005-1.030) 11/25/16 22:00 Urine Protein NEGATIVE mg/dL (NEGATIVE) 11/25/16 22:00 Urine Glucose (UA) NEGATIVE mg/dL (NEGATIVE) 11/25/16 22:00 Urine Ketones NEGATIVE mg/dL (NEGATIVE) 11/25/16 22:00 Urine Blood TRACE (NEGATIVE) 11/25/16 22:00 Urine Nitrate NEGATIVE (NEGATIVE) 11/25/16 22:00 Urine Bilirubin NEGATIVE (NEGATIVE) 11/25/16 22:00 Urine Urobilinogen 0.2 E.U./dL (0.2 - 1.0) 11/25/16 22:00 Ur Leukocyte Esterase SMALL (NEGATIVE) H 11/25/16 22:00 Urine RBC 0-2 /hpf (0-5) 11/25/16 22:00 Urine WBC 6-10 /hpf (0-5) H 11/25/16 22:00 Ur Epithelial Cells FEW /lpf (FEW) 11/25/16 22:00 Urine Bacteria FEW /hpf (NONE SEEN) 11/25/16 22:00 Salicylates < 25.0 mg/L (30.0-100.0) L 11/25/16 20:40 Urine Opiates Screen NEGATIVE (NEGATIVE) 11/25/16 22:00 Urine Methadone Screen NEGATIVE (NEGATIVE) 11/25/16 22:00 Acetaminophen < 10.0 ug/mL (10.0-30.0) L 11/25/16 20:40 Ur Barbiturates Screen NEGATIVE (NEGATIVE) 11/25/16 22:00 Ur Tricyclics Screen NEGATIVE (NEGATIVE) 11/25/16 22:00 Ur Phencyclidine Scrn NEGATIVE (NEGATIVE) 11/25/16 22:00 Amphetamines Screen NEGATIVE (NEGATIVE) 11/25/16 22:00 U Methamphetamines Scrn NEGATIVE (NEGATIVE) 11/25/16 22:00 U Benzodiazepines Scrn POSITIVE (NEGATIVE) H 11/25/16 22:00 U Cocaine Metab Screen NEGATIVE (NEGATIVE) 11/25/16 22:00 U Cannabinoids Screen NEGATIVE (NEGATIVE) 11/25/16 22:00 Ethyl Alcohol < 10 mg/dL (0-10) 11/25/16 20:40 RPR NONREACTIVE (NONREACTIVE) 11/25/16 20:40 - Physical Exam Vitals and I&O: Vital Signs Temp 97.1 F 12/08/16 06:20 Pulse 75 12/08/16 06:20 Resp 18 12/08/16 08:00 BP 126/71 12/08/16 06:20 Pulse Ox 96 12/08/16 06:20 Intake & Output 12/07/16 12/08/16 12/08/16 18:59 06:59 18:59 Intake Total 2200 120 Balance 2200 120 Intake: Oral 2200 120 Other: # Voids 3 3 # Bowel Movements 0 Active Medications: Current Medications Acetaminophen (Tylenol Extra Strength) 500 mg PO Q6HR PRN PRN Reason: Pain (Mild) Last Admin: 12/08/16 09:06 Dose: 500 mg Al Hydrox/Mg Hydrox/Simethicone (Maalox) 30 ml PO Q6H PRN PRN Reason: Dyspepsia Stop: 01/24/17 23:17 Docusate Sodium (Colace) 200 mg PO BID [facility] Stop: 01/27/17 08:59 Last Admin: 12/08/16 09:00 Dose: 200 mg Famotidine (Pepcid) 20 mg PO DAILY [facility] Stop: 01/25/17 08:59 Last Admin: 12/08/16 09:00 Dose: 20 mg Lorazepam (Ativan) 0.5 mg PO Q8HR PRN; Protocol PRN Reason: Anxiety/agitation Stop: 01/24/17 23:21 Last Admin: 12/05/16 23:09 Dose: 0.5 mg Magnesium Hydroxide (Milk Of Magnesia) 30 ml PO HS PRN PRN Reason: Constipation Stop: 01/24/17 23:17 Quetiapine Fumarate (Seroquel) 100 mg PO BID [facility] Stop: 02/06/17 11:24 Last Admin: 12/08/16 11:43 Dose: Not Given Zolpidem Tartrate (Ambien) 5 mg PO HS PRN PRN Reason: Insomnia Stop: 01/25/17 09:05 Last Admin: 12/08/16 01:46 Dose: 5 mg General: No acute distress HEENT: Atraumatic Neck: Thyromegaly Cardiovascular: Regular rate, Normal S1, Normal S2 - Procedures Procedures: Procedures Procedure Code Date EMERGENCY DEPT VISIT 09252 02/03/00 IMMOBILIZ/WOUND ATTN NEC 93.59 08/01/01 Assessment/Plan - Problem List Patient Problems: All Active Problems Diabetes mellitus, new onset (Acute) E11.9 behavioral issues anxiety agitation (Acute) - Assessment Assessment: Current Active Problems Problem Status Onset Diabetes mellitus, new onset Acute behavioral issues anxiety agitation Acute - Plan Plan: as per psych as problems arise will monitor Nutritional Asmnt/Malnutr-PDOC - Dietary Evaluation Malnutrition Findings (Please click <Entered> for more info): Nutritional Asmnt/Malnutrition Start: 11/26/16 13: 08 Text: Status: Complete Freq: Document 11/26/16 13:08 GSUN (Rec: 11/26/16 13:18 GSUN [id number]) Nutritional Asmnt/Malnutrition Patient General Information Nutritional Screening High Risk Screening Diagnosis ER: suspect new onset DM Pertinent Medical Hx/Surgical Hx ER: HTN Subjective Information 81 year old female from SNF. Spoke to pt resting in bed, pt appeared slightly confused, forgetful, easily agitated, not suitable for DM edu. Pt stated usually fair appetite, ate 50% breakfast this AM. Teeth intact, no difficulties eating, became agitated regarding retriving her toothpick from her purse. Pt stated UBW 140lb, CBW bedscale 153.1lb, pt denied recent weight changes. Current Diet Order/ Nutrition Support Regular, ANGELIQUE Pertinent Medications Maalox, Pepcid, MOM Pertinent Labs 11/25: glucose 200H, A1c 6.9H Nutritional Hx/Data Height 1.63 m Height (Calculated Centimeters) 162.6 Current Weight (lbs) 69.445 kg Weight (Calculated Kilograms) 69.4 Weight (Calculated Grams) 30893.0 Usual body Weight (lbs) 140 [place] Body Weight 120 Weight Status Overweight GI Symptoms Cultural/Ethnic/Yarsanism Belief Pt denied allergies. Pt dislikes milk, yogurt. Skin Integrity/Comment: Tomás 17. Skin intact. Estimated Nutritional Goals Calories/Kcals/Kg UBW 140lb/63.6kg Kcals Calculated 1590-1908kcal (25-30kcal/kg) Protein Calculated 64g (1g/kg) Fluid: ml 1590-1908ml (1ml/kcal) Nutritional Problem 1. Problem Problem Altered nutrition related laboratory values related to Etiology endocrine dysfunction, " suspect new onset DM" per ER note aeb Signs/Symptoms: A1c 6.9, glucose 200 on adm Intervention/Recommendation Comments 1. Recommend [id number]. 2. FNS noted of pt's fodo preferences. Expected Outcomes/Goals Expected Outcomes/Goals 1. PO intake to meet at least 75% of estimated nutritional needs.
[2016-12-09] MEDS: Acetaminophen 500 MG TAB PO PRN (08:11)
--- NOTE | 2016-12-09 11:58 | General Progress Note ---
Subjective - Review of Systems Service Date: 12/09/16 Subjective: no distress pt denies any pain or discomfort no acute distress Objective - Results Result Diagrams: 11/25/16 20:40 11/25/16 20:40 Recent Labs: Laboratory Last Values WBC 8.5 Th/cmm (4.8-10.8) 11/25/16 20:40 RBC 5.14 Mil/cmm (3.80-5.20) 11/25/16 20:40 Hgb 14.4 gm/dL (11.7-16.1) 11/25/16 20:40 Hct 43.4 % (35.0-45.0) 11/25/16 20:40 MCV 84.4 fl (81-100) 11/25/16 20:40 MCH 28.0 pg (27.0-31.0) 11/25/16 20:40 MCHC Differential 33.1 pg (28.0-36.0) 11/25/16 20:40 RDW 12.3 % (11.5-20.0) 11/25/16 20:40 Plt Count 395 Th/cmm (150-400) 11/25/16 20:40 MPV 6.7 fl 11/25/16 20:40 Neutrophils % 71.5 % (40.0-80.0) 11/25/16 20:40 Lymphocytes % 17.4 % (20.0-50.0) L 11/25/16 20:40 Monocytes % 9.6 % (2.0-10.0) 11/25/16 20:40 Eosinophils % 1.2 % (0.0-5.0) 11/25/16 20:40 Basophils % 0.3 % (0.0-2.0) 11/25/16 20:40 Sodium 126 mEq/L (136-145) L 11/25/16 20:40 Potassium 3.9 mEq/L (3.5-5.1) 11/25/16 20:40 Chloride 96 mEq/L (98-107) L 11/25/16 20:40 Carbon Dioxide 24.1 mEq/L (21.0-31.0) 11/25/16 20:40 Anion Gap 9.8 (7.0-16.0) 11/25/16 20:40 BUN 13 mg/dL (7-25) 11/25/16 20:40 Creatinine 0.7 mg/dL (0.6-1.2) 11/25/16 20:40 Est GFR ( Amer) TNP 11/25/16 20:40 Est GFR (Non-Af Amer) TNP 11/25/16 20:40 BUN/Creatinine Ratio 18.6 11/25/16 20:40 Glucose 200 mg/dL (70-105) H 11/25/16 20:40 Hemoglobin A1c % 6.9 % (4.0-6.0) H 11/25/16 20:40 Calcium 9.8 mg/dL (8.6-10.3) 11/25/16 20:40 Total Bilirubin 0.4 mg/dL (0.3-1.0) 11/25/16 20:40 AST 11 U/L (13-39) L 11/25/16 20:40 ALT 8 U/L (7-52) 11/25/16 20:40 Alkaline Phosphatase 71 U/L (34-104) 11/25/16 20:40 Troponin I 0.01 ng/mL (0.01-0.05) 11/25/16 20:40 Total Protein 7.6 gm/dL (6.0-8.3) 11/25/16 20:40 Albumin 3.8 gm/dL (3.7-5.3) 11/25/16 20:40 Globulin 3.8 gm/dL 11/25/16 20:40 Albumin/Globulin Ratio 1.0 (1.0-1.8) 11/25/16 20:40 Triglycerides 89 mg/dL (<150) 11/25/16 20:40 Cholesterol 182 mg/dL (<200) 11/25/16 20:40 LDL Cholesterol Direct 124 mg/dL (75-193) 11/25/16 20:40 HDL Cholesterol 52 mg/dL (23-92) 11/25/16 20:40 TSH 1.19 uIU/ml (0.34-5.60) 11/25/16 20:40 Urine Source CLEAN C 11/25/16 22:00 Urine Color YELLOW 11/25/16 22:00 Urine Clarity CLEAR (CLEAR) 11/25/16 22:00 Urine pH 6.5 11/25/16 22:00 Ur Specific [place] 1.010 (1.005-1.030) 11/25/16 22:00 Urine Protein NEGATIVE mg/dL (NEGATIVE) 11/25/16 22:00 Urine Glucose (UA) NEGATIVE mg/dL (NEGATIVE) 11/25/16 22:00 Urine Ketones NEGATIVE mg/dL (NEGATIVE) 11/25/16 22:00 Urine Blood TRACE (NEGATIVE) 11/25/16 22:00 Urine Nitrate NEGATIVE (NEGATIVE) 11/25/16 22:00 Urine Bilirubin NEGATIVE (NEGATIVE) 11/25/16 22:00 Urine Urobilinogen 0.2 E.U./dL (0.2 - 1.0) 11/25/16 22:00 Ur Leukocyte Esterase SMALL (NEGATIVE) H 11/25/16 22:00 Urine RBC 0-2 /hpf (0-5) 11/25/16 22:00 Urine WBC 6-10 /hpf (0-5) H 11/25/16 22:00 Ur Epithelial Cells FEW /lpf (FEW) 11/25/16 22:00 Urine Bacteria FEW /hpf (NONE SEEN) 11/25/16 22:00 Salicylates < 25.0 mg/L (30.0-100.0) L 11/25/16 20:40 Urine Opiates Screen NEGATIVE (NEGATIVE) 11/25/16 22:00 Urine Methadone Screen NEGATIVE (NEGATIVE) 11/25/16 22:00 Acetaminophen < 10.0 ug/mL (10.0-30.0) L 11/25/16 20:40 Ur Barbiturates Screen NEGATIVE (NEGATIVE) 11/25/16 22:00 Ur Tricyclics Screen NEGATIVE (NEGATIVE) 11/25/16 22:00 Ur Phencyclidine Scrn NEGATIVE (NEGATIVE) 11/25/16 22:00 Amphetamines Screen NEGATIVE (NEGATIVE) 11/25/16 22:00 U Methamphetamines Scrn NEGATIVE (NEGATIVE) 11/25/16 22:00 U Benzodiazepines Scrn POSITIVE (NEGATIVE) H 11/25/16 22:00 U Cocaine Metab Screen NEGATIVE (NEGATIVE) 11/25/16 22:00 U Cannabinoids Screen NEGATIVE (NEGATIVE) 11/25/16 22:00 Ethyl Alcohol < 10 mg/dL (0-10) 11/25/16 20:40 RPR NONREACTIVE (NONREACTIVE) 11/25/16 20:40 - Physical Exam Vitals and I&O: Vital Signs Temp 97.4 F 12/09/16 06:24 Pulse 66 12/09/16 06:24 Resp 18 12/09/16 06:24 BP 123/78 12/09/16 06:24 Pulse Ox 96 12/09/16 06:24 Intake & Output 12/08/16 12/09/16 12/09/16 18:59 06:59 18:59 Intake Total 1000 120 Balance 1000 120 Intake: Oral 1000 120 Other: # Voids 4 3 # Bowel Movements 0 Active Medications: Current Medications Acetaminophen (Tylenol Extra Strength) 500 mg PO Q6HR PRN PRN Reason: Pain (Mild) Last Admin: 12/09/16 08:11 Dose: 500 mg Al Hydrox/Mg Hydrox/Simethicone (Maalox) 30 ml PO Q6H PRN PRN Reason: Dyspepsia Stop: 01/24/17 23:17 Docusate Sodium (Colace) 200 mg PO BID [facility] Stop: 01/27/17 08:59 Last Admin: 12/09/16 08:12 Dose: 200 mg Famotidine (Pepcid) 20 mg PO DAILY [facility] Stop: 01/25/17 08:59 Last Admin: 12/09/16 08:12 Dose: 20 mg Lorazepam (Ativan) 0.5 mg PO Q8HR PRN; Protocol PRN Reason: Anxiety/agitation Stop: 01/24/17 23:21 Last Admin: 12/05/16 23:09 Dose: 0.5 mg Magnesium Hydroxide (Milk Of Magnesia) 30 ml PO HS PRN PRN Reason: Constipation Stop: 01/24/17 23:17 Quetiapine Fumarate (Seroquel) 125 mg PO BID [facility] Stop: 02/06/17 06:59 Last Admin: 12/09/16 07:07 Dose: 125 mg Zolpidem Tartrate (Ambien) 5 mg PO HS PRN PRN Reason: Insomnia Stop: 01/25/17 09:05 Last Admin: 12/08/16 01:46 Dose: 5 mg General: No acute distress HEENT: Atraumatic Neck: Thyromegaly Cardiovascular: Regular rate, Normal S1, Normal S2 - Procedures Procedures: Procedures Procedure Code Date EMERGENCY DEPT VISIT 40200 02/03/00 IMMOBILIZ/WOUND ATTN NEC 93.59 08/01/01 Assessment/Plan - Problem List Patient Problems: All Active Problems Diabetes mellitus, new onset (Acute) E11.9 behavioral issues anxiety agitation (Acute) - Assessment Assessment: Current Active Problems Problem Status Onset Diabetes mellitus, new onset Acute behavioral issues anxiety agitation Acute - Plan Plan: as per psych as problems arise will monitor Nutritional Asmnt/Malnutr-PDOC - Dietary Evaluation Malnutrition Findings (Please click <Entered> for more info): Nutritional Asmnt/Malnutrition Start: 11/26/16 13: 08 Text: Status: Complete Freq: Document 11/26/16 13:08 GSUN (Rec: 11/26/16 13:18 [email or web address] [id number]) Nutritional Asmnt/Malnutrition Patient General Information Nutritional Screening High Risk Screening Diagnosis ER: suspect new onset DM Pertinent Medical Hx/Surgical Hx ER: HTN Subjective Information 81 year old female from SNF. Spoke to pt resting in bed, pt appeared slightly confused, forgetful, easily agitated, not suitable for DM edu. Pt stated usually fair appetite, ate 50% breakfast this AM. Teeth intact, no difficulties eating, became agitated regarding retriving her toothpick from her purse. Pt stated UBW 140lb, CBW bedscale 153.1lb, pt denied recent weight changes. Current Diet Order/ Nutrition Support Regular, ANGELIQUE Pertinent Medications Maalox, Pepcid, MOM Pertinent Labs 11/25: glucose 200H, A1c 6.9H Nutritional Hx/Data Height 1.63 m Height (Calculated Centimeters) 162.6 Current Weight (lbs) 69.445 kg Weight (Calculated Kilograms) 69.4 Weight (Calculated Grams) 79478.0 Usual body Weight (lbs) 140 [place] Body Weight 120 Weight Status Overweight GI Symptoms Cultural/Ethnic/Anglican Belief Pt denied allergies. Pt dislikes milk, yogurt. Skin Integrity/Comment: Tomás 17. Skin intact. Estimated Nutritional Goals Calories/Kcals/Kg UBW 140lb/63.6kg Kcals Calculated 1590-1908kcal (25-30kcal/kg) Protein Calculated 64g (1g/kg) Fluid: ml 1590-1908ml (1ml/kcal) Nutritional Problem 1. Problem Problem Altered nutrition related laboratory values related to Etiology endocrine dysfunction, " suspect new onset DM" per ER note aeb Signs/Symptoms: A1c 6.9, glucose 200 on adm Intervention/Recommendation Comments 1. Recommend [id number]. 2. FNS noted of pt's fodo preferences. Expected Outcomes/Goals Expected Outcomes/Goals 1. PO intake to meet at least 75% of estimated nutritional needs.
[2016-12-10] MEDS: Acetaminophen 500 MG TAB PO PRN (09:19)
--- NOTE | 2016-12-10 10:46 | General Progress Note ---
Subjective - Review of Systems Subjective: pt denies any pain pt denies discomfort no acute distress Objective - Results Result Diagrams: 11/25/16 20:40 11/25/16 20:40 Recent Labs: Laboratory Last Values WBC 8.5 Th/cmm (4.8-10.8) 11/25/16 20:40 RBC 5.14 Mil/cmm (3.80-5.20) 11/25/16 20:40 Hgb 14.4 gm/dL (11.7-16.1) 11/25/16 20:40 Hct 43.4 % (35.0-45.0) 11/25/16 20:40 MCV 84.4 fl (81-100) 11/25/16 20:40 MCH 28.0 pg (27.0-31.0) 11/25/16 20:40 MCHC Differential 33.1 pg (28.0-36.0) 11/25/16 20:40 RDW 12.3 % (11.5-20.0) 11/25/16 20:40 Plt Count 395 Th/cmm (150-400) 11/25/16 20:40 MPV 6.7 fl 11/25/16 20:40 Neutrophils % 71.5 % (40.0-80.0) 11/25/16 20:40 Lymphocytes % 17.4 % (20.0-50.0) L 11/25/16 20:40 Monocytes % 9.6 % (2.0-10.0) 11/25/16 20:40 Eosinophils % 1.2 % (0.0-5.0) 11/25/16 20:40 Basophils % 0.3 % (0.0-2.0) 11/25/16 20:40 Sodium 126 mEq/L (136-145) L 11/25/16 20:40 Potassium 3.9 mEq/L (3.5-5.1) 11/25/16 20:40 Chloride 96 mEq/L (98-107) L 11/25/16 20:40 Carbon Dioxide 24.1 mEq/L (21.0-31.0) 11/25/16 20:40 Anion Gap 9.8 (7.0-16.0) 11/25/16 20:40 BUN 13 mg/dL (7-25) 11/25/16 20:40 Creatinine 0.7 mg/dL (0.6-1.2) 11/25/16 20:40 Est GFR ( Amer) TNP 11/25/16 20:40 Est GFR (Non-Af Amer) TNP 11/25/16 20:40 BUN/Creatinine Ratio 18.6 11/25/16 20:40 Glucose 200 mg/dL (70-105) H 11/25/16 20:40 Hemoglobin A1c % 6.9 % (4.0-6.0) H 11/25/16 20:40 Calcium 9.8 mg/dL (8.6-10.3) 11/25/16 20:40 Total Bilirubin 0.4 mg/dL (0.3-1.0) 11/25/16 20:40 AST 11 U/L (13-39) L 11/25/16 20:40 ALT 8 U/L (7-52) 11/25/16 20:40 Alkaline Phosphatase 71 U/L (34-104) 11/25/16 20:40 Troponin I 0.01 ng/mL (0.01-0.05) 11/25/16 20:40 Total Protein 7.6 gm/dL (6.0-8.3) 11/25/16 20:40 Albumin 3.8 gm/dL (3.7-5.3) 11/25/16 20:40 Globulin 3.8 gm/dL 11/25/16 20:40 Albumin/Globulin Ratio 1.0 (1.0-1.8) 11/25/16 20:40 Triglycerides 89 mg/dL (<150) 11/25/16 20:40 Cholesterol 182 mg/dL (<200) 11/25/16 20:40 LDL Cholesterol Direct 124 mg/dL (75-193) 11/25/16 20:40 HDL Cholesterol 52 mg/dL (23-92) 11/25/16 20:40 TSH 1.19 uIU/ml (0.34-5.60) 11/25/16 20:40 Urine Source CLEAN C 11/25/16 22:00 Urine Color YELLOW 11/25/16 22:00 Urine Clarity CLEAR (CLEAR) 11/25/16 22:00 Urine pH 6.5 11/25/16 22:00 Ur Specific [place] 1.010 (1.005-1.030) 11/25/16 22:00 Urine Protein NEGATIVE mg/dL (NEGATIVE) 11/25/16 22:00 Urine Glucose (UA) NEGATIVE mg/dL (NEGATIVE) 11/25/16 22:00 Urine Ketones NEGATIVE mg/dL (NEGATIVE) 11/25/16 22:00 Urine Blood TRACE (NEGATIVE) 11/25/16 22:00 Urine Nitrate NEGATIVE (NEGATIVE) 11/25/16 22:00 Urine Bilirubin NEGATIVE (NEGATIVE) 11/25/16 22:00 Urine Urobilinogen 0.2 E.U./dL (0.2 - 1.0) 11/25/16 22:00 Ur Leukocyte Esterase SMALL (NEGATIVE) H 11/25/16 22:00 Urine RBC 0-2 /hpf (0-5) 11/25/16 22:00 Urine WBC 6-10 /hpf (0-5) H 11/25/16 22:00 Ur Epithelial Cells FEW /lpf (FEW) 11/25/16 22:00 Urine Bacteria FEW /hpf (NONE SEEN) 11/25/16 22:00 Salicylates < 25.0 mg/L (30.0-100.0) L 11/25/16 20:40 Urine Opiates Screen NEGATIVE (NEGATIVE) 11/25/16 22:00 Urine Methadone Screen NEGATIVE (NEGATIVE) 11/25/16 22:00 Acetaminophen < 10.0 ug/mL (10.0-30.0) L 11/25/16 20:40 Ur Barbiturates Screen NEGATIVE (NEGATIVE) 11/25/16 22:00 Ur Tricyclics Screen NEGATIVE (NEGATIVE) 11/25/16 22:00 Ur Phencyclidine Scrn NEGATIVE (NEGATIVE) 11/25/16 22:00 Amphetamines Screen NEGATIVE (NEGATIVE) 11/25/16 22:00 U Methamphetamines Scrn NEGATIVE (NEGATIVE) 11/25/16 22:00 U Benzodiazepines Scrn POSITIVE (NEGATIVE) H 11/25/16 22:00 U Cocaine Metab Screen NEGATIVE (NEGATIVE) 11/25/16 22:00 U Cannabinoids Screen NEGATIVE (NEGATIVE) 11/25/16 22:00 Ethyl Alcohol < 10 mg/dL (0-10) 11/25/16 20:40 RPR NONREACTIVE (NONREACTIVE) 11/25/16 20:40 - Physical Exam Vitals and I&O: Vital Signs Temp 98.1 F 07/13/17 05:51 Pulse 64 12/10/16 05:51 Resp 19 12/10/16 05:51 BP 131/76 12/10/16 05:51 Pulse Ox 95 12/10/16 05:51 Intake & Output 12/09/16 12/10/16 12/10/16 18:59 06:59 18:59 Intake Total 1000 300 Balance 1000 300 Intake: Oral 1000 300 Other: # Voids 5 2 # Bowel Movements 0 0 Active Medications: Current Medications Acetaminophen (Tylenol Extra Strength) 500 mg PO Q6HR PRN PRN Reason: Pain (Mild) Last Admin: 12/10/16 09:19 Dose: 500 mg Al Hydrox/Mg Hydrox/Simethicone (Maalox) 30 ml PO Q6H PRN PRN Reason: Dyspepsia Stop: 01/24/17 23:17 Docusate Sodium (Colace) 200 mg PO BID [facility] Stop: 01/27/17 08:59 Last Admin: 12/10/16 09:19 Dose: 200 mg Famotidine (Pepcid) 20 mg PO DAILY [facility] Stop: 01/25/17 08:59 Last Admin: 12/10/16 09:19 Dose: 20 mg Lorazepam (Ativan) 0.5 mg PO Q8HR PRN; Protocol PRN Reason: Anxiety/agitation Stop: 01/24/17 23:21 Last Admin: 12/05/16 23:09 Dose: 0.5 mg Magnesium Hydroxide (Milk Of Magnesia) 30 ml PO HS PRN PRN Reason: Constipation Stop: 01/24/17 23:17 Quetiapine Fumarate (Seroquel) 125 mg PO BID [facility] Stop: 02/06/17 06:59 Last Admin: 12/10/16 09:18 Dose: 125 mg Zolpidem Tartrate (Ambien) 5 mg PO HS PRN PRN Reason: Insomnia Stop: 01/25/17 09:05 Last Admin: 12/08/16 01:46 Dose: 5 mg General: No acute distress HEENT: Atraumatic Neck: Thyromegaly Cardiovascular: Regular rate, Normal S1, Normal S2 - Procedures Procedures: Procedures Procedure Code Date EMERGENCY DEPT VISIT 23008 02/03/00 IMMOBILIZ/WOUND ATTN NEC 93.59 08/01/01 Assessment/Plan - Problem List Patient Problems: All Active Problems Diabetes mellitus, new onset (Acute) E11.9 behavioral issues anxiety agitation (Acute) - Assessment Assessment: Current Active Problems Problem Status Onset Diabetes mellitus, new onset Acute behavioral issues anxiety agitation Acute - Plan Plan: as per psych as problems arise will monitor Nutritional Asmnt/Malnutr-PDOC - Dietary Evaluation Malnutrition Findings (Please click <Entered> for more info): Nutritional Asmnt/Malnutrition Start: 11/26/16 13: 08 Text: Status: Complete Freq: Document 11/26/16 13:08 GSUN (Rec: 11/26/16 13:18 [email or web address] [id number]) Nutritional Asmnt/Malnutrition Patient General Information Nutritional Screening High Risk Screening Diagnosis ER: suspect new onset DM Pertinent Medical Hx/Surgical Hx ER: HTN Subjective Information 81 year old female from SNF. Spoke to pt resting in bed, pt appeared slightly confused, forgetful, easily agitated, not suitable for DM edu. Pt stated usually fair appetite, ate 50% breakfast this AM. Teeth intact, no difficulties eating, became agitated regarding retriving her toothpick from her purse. Pt stated UBW 140lb, CBW bedscale 153.1lb, pt denied recent weight changes. Current Diet Order/ Nutrition Support Regular, ANGELIQUE Pertinent Medications Maalox, Pepcid, MOM Pertinent Labs 11/25: glucose 200H, A1c 6.9H Nutritional Hx/Data Height 1.63 m Height (Calculated Centimeters) 162.6 Current Weight (lbs) 69.445 kg Weight (Calculated Kilograms) 69.4 Weight (Calculated Grams) 26316.0 Usual body Weight (lbs) 140 [place] Body Weight 120 Weight Status Overweight GI Symptoms Cultural/Ethnic/Religion Belief Pt denied allergies. Pt dislikes milk, yogurt. Skin Integrity/Comment: Tomás 17. Skin intact. Estimated Nutritional Goals Calories/Kcals/Kg UBW 140lb/63.6kg Kcals Calculated 1590-1908kcal (25-30kcal/kg) Protein Calculated 64g (1g/kg) Fluid: ml 1590-1908ml (1ml/kcal) Nutritional Problem 1. Problem Problem Altered nutrition related laboratory values related to Etiology endocrine dysfunction, " suspect new onset DM" per ER note aeb Signs/Symptoms: A1c 6.9, glucose 200 on adm Intervention/Recommendation Comments 1. Recommend [id number]. 2. FNS noted of pt's fodo preferences. Expected Outcomes/Goals Expected Outcomes/Goals 1. PO intake to meet at least 75% of estimated nutritional needs.
== END 2016-12-11 09:35 | DRG 885 ==
LOC: ER 20:10 → GERO 22:30
PROVIDERS: ADMIT Psychiatry & Neurology Psychiatry; ATTEND Psychiatry & Neurology Psychiatry
DX: F29 Unspecified psychosis not due to a substance or known physiological condition (principal); E11.9 Type 2 diabetes mellitus without complications; I10 Essential (primary) hypertension; F41.9 Anxiety disorder, unspecified; G47.00 Insomnia, unspecified; Z88.5 Allergy status to narcotic agent; Z79.899 Other long term (current) drug therapy
CPT/HCPCS: 36415-UA; 80053-TC; 80061-TC; 80307; 80320-TC; 80329-TC; 81001-TC; 82948-90; 83036-90; 84443-TC; 84484-TC; 85025-TC; 86592-TC; 93005; Z7610

== ENCOUNTER 2017-12-09 15:26 | Inpatient (IN) | payer MEDICARE, OTHER ==
--- NOTE | 2017-12-09 15:53 | ED Physician Chart ---
ED Chief Complaint/HPI - Patient Information Date Seen:: 12/09/17 Time Seen:: 15:40 Chief Complaint:: agitation History of Present Illness:: He has been anxious and agitated at her longterm facility. She complained to the nurse of nausea but then to me she complained of being hungry and requested a peanut butter and jelly sandwich. No medical records were sent with the patient and patient denies chronic medical problems. Allergies:: Allergies Allergy/AdvReac Type Severity Reaction Status Date / Time codeine Allergy Verified 11/25/16 20:24 Vitals:: Vital Signs - 8 hr 12/09/17 15:34 Temp 98.1 F HR 75 RR 19 BP 170/80 O2 Sat % 96 Historian:: Patient Review:: Nurse's Note Reviewed ED Review of Systems - Review of Systems General/Constitutional: No fever, No chills, No weight loss, No weakness, No diaphoresis, No edema, No loss of appetite Skin: No skin lesions, No rash, No bruising Head: No headache, No light-headedness Eyes: No loss of vision, No pain, No diplopia ENT: No earache, No nasal drainage, No sore throat, No tinnitus Neck: No neck pain, No swelling, No thyromegaly, No stiffness, No mass noted Cardio Vascular: No chest pain, No palpitations, No PND, No orthopnea, No edema Pulmonary: No SOB, No cough, No sputum, No wheezing GI: No nausea, No vomiting, No diarrhea, No pain, No melena, No hematochezia, No constipation, No hematemesis G/U: No dysuria, No frequency, No hematuria Musculoskeletal: No bone or joint pain, No back pain, No muscle pain Endocrine: No polyuria, No polydipsia Psychiatric: No prior psych history, No depression, No anxiety, No suicidal ideation, Other (anxiety and aggressive behavior) Hematopoietic: No bruising, No lymphadenopathy Allergic/Immuno: No urticaria, No angioedema Neurological: No syncope, No focal symptoms, No weakness, No paresthesia, No headache, No seizure, No dizziness, No confusion, No vertigo ED Past Medical History - Past Medical History Past Medical History: No significant medical hx Family History: None Social History: Non Smoker, No Alcohol Surgical History: other (laparotomy) Medication: Reviewed Family Medical History - Family Member Mother History Unknown: Yes ED Physical Exam - Physical Examination General/Constitutional: Awake Other Gen/Cons comments:: Patient is anxious and requesting food; she is alert and oriented to the correct month and year. She is noted to be tremulous. Head: Atraumatic Eyes: Lids, conjuctiva normal, PERRL, EOMI Skin: Nl inspection, No rash, No skin lesions, No ecchymosis, Well hydrated, No lymphadenopathy ENMT: External ears, nose nl, Nasal exam nl, Lips, teeth, gums nl Neck: Nontender, Full ROM w/o pain, No JVD, No nuchal rigidity, No bruit, No mass, No stridor Respiratory: Nl effort/Exclusion, Clear to Auscultation, No Wheeze/Rhonchi/Rales Cardio Vascular: RRR, No murmur, gallop, rubs, NL S1 S2 GI: No organomegaly, No hernia, Normal BS's, Nondistended, No mass/bruits, No McBurney tenderness Other GI comments:: Tender swelling at 2:00 about 5 cm from the umbilicus probably a ventral hernia. : No CVA tenderness Extremities: No tenderness or effusion, Full ROM, normal strength in all extremities, No edema (1.5 out of 4 pretibial pitting edema), Normal digits & nails Neuro/Psych: Alert/oriented, DTR's symmetric, Normal sensory exam, Normal motor strength, Judgement/insight normal, Mood normal, Normal gait, No focal deficits Misc: Normal back, No paraspinal tenderness ED Labs/Radiology/EKG Results - Lab Results Results: Laboratory Results - last 24 hr 12/09/17 12/09/17 16:00 16:00 WBC 8.4 RBC 4.82 Hgb 13.2 Hct 40.1 L MCV 83.1 MCH 27.3 MCHC Differential 32.9 RDW 13.2 Plt Count 429 H MPV 6.2 Neutrophils % 78.7 Lymphocytes % 10.2 L Monocytes % 9.2 Eosinophils % 1.4 Basophils % 0.5 Sodium 121 L Potassium 4.7 Chloride 91 L Carbon Dioxide 24.0 Anion Gap 10.7 BUN 15 Creatinine 0.5 L Est GFR ( Amer) TNP Est GFR (Non-Af Amer) TNP BUN/Creatinine Ratio 30.0 Glucose 175 H Calcium 9.1 Total Bilirubin 0.4 AST 12 L ALT 10 Alkaline Phosphatase 94 Total Protein 6.6 Albumin 3.8 Globulin 2.8 Albumin/Globulin Ratio 1.4 Triglycerides 91 Cholesterol 194 LDL Cholesterol Direct 114 HDL Cholesterol 65 Salicylates < 25.0 L Acetaminophen < 10.0 L Ethyl Alcohol < 10 - Radiology Results Results: Chest x-ray negative - EKG Interpretations Rate & Rhythm: normal sinus rhythm with a rate of 74 [place]: normal ED Septic Shock - . Is Septic Shock (SBP<90, OR Lactate>4 mmol\L) present?: No - <6hrs of presentation: Vital Signs: Vital Signs - 8 hr 12/09/17 15:34 Temp 98.1 F HR 75 RR 19 BP 170/80 O2 Sat % 96 ED Reassessment (Disposition) - Reassessment Reassessment Condition:: Unchanged - Diagnosis Diagnosis:: Hyponatremia; hyperglycemia; schizophrenia; agitation - Patient Disposition Admitted to:: Telemetry Admitting Medical Physician:: Eliecer Rivera Admitting Psych Physician:: Jace Robbins Condition at Disposition:: Stable, Unchanged ED Discharge Plan - Patient Disposition Instructions: Psychosis
[2017-12-09 16:12] LABS: % BASOPHILS 0.5 % (0.0-2.0); % EOSINOPHILS 1.4 % (0.0-5.0); % LYMPHOCYTES 10.2 % (20.0-50.0); % MONOCYTES 9.2 % (2.0-10.0); % NEUTROPHILS 78.7 % (40.0-80.0); EOSINOPHILE ABSOLUTE 0.1 Th/cmm (0.1-0.4); HEMATOCRIT 40.1 % (41.0-60); HEMOGLOBIN 13.2 gm/dL (12-16); LYMPHOCYTE ABSOLUTE 0.9 Th/cmm (1.5-3.0); MEAN CELL VOLUME 83.1 fl (81-100); MEAN CORPUSCULAR HEMOGLOBIN 27.3 pg (27.0-31.0); MEAN CORPUSCULAR HGB CONC 32.9 pg (28.0-36.0); MEAN PLATELET VOLUME 6.2 fl; MONOCYTE ABSOLUTE 0.8 Th/cmm (0.3-1.0); NEUTROPHILE ABSOLUTE 6.6 Th/cmm (1.8-8.0); PLATELET COUNT 429 Th/cmm (150-400); RED BLOOD COUNT 4.82 Mil/cmm (3.80-5.20); RED CELL DISTRIBUTION WIDTH 13.2 % (11.5-20.0); WHITE BLOOD COUNT 8.4 Th/cmm (4.8-10.8)
[2017-12-09 16:26] LABS: ACETAMINOPHEN < 10.0 ug/mL (10.0-30.0); ALB/GLOB RATIO 1.4 (1.0-1.8); ALBUMIN 3.8 gm/dL (3.7-5.3); ALKALINE PHOSPHATASE 94 U/L (34-104); ANION GAP 10.7 (7.0-16.0); BILIRUBIN,TOTAL 0.4 mg/dL (0.3-1.0); BUN - UREA NITROGEN 15 mg/dL (7-25); CALCIUM SERUM 9.1 mg/dL (8.6-10.3); CHLORIDE 91 mEq/L (98-107); CHOLESTEROL 194 mg/dL (<200); CREATININE - SERUM 0.5 mg/dL (0.6-1.2); GLUCOSE 175 mg/dL (70-105); HDL -HIGH DENSITY LIPOPROTEIN 65 mg/dL (23-92); POTASSIUM SERUM 4.7 mEq/L (3.5-5.1); SGOT 12 U/L (13-39); SGPT/ALT 10 U/L (7-52); SODIUM SERUM 121 mEq/L (136-145); TOTAL PROTEIN,SERUM 6.6 gm/dL (6.0-8.3); TRIGLYCERIDES 91 mg/dL (<150)
[2017-12-09 16:28] LABS: SALICYLATES (ASPIRIN) < 25.0 mg/L (30.0-100.0)
[2017-12-09] MEDS ORDERED: Sodium Chloride 3% 250 ML IV ONE (18:22)
[2017-12-09] MEDS ORDERED: Magnesium Hydroxide (MOM) 30 mL UDC PO PRN (18:32)
[2017-12-09] MEDS ORDERED: Sodium Chloride 3% 500 ML IV ONE (20:12)
[2017-12-09] MEDS: Hydrocodone/APAP 5mg/325mg Tab PO PRN (20:52)
[2017-12-09] MEDS: INSULIN ASPART SLIDING SCALE 100 UNITS/ML UNIT SUBQ SCH (21:03)
[2017-12-09 21:31] LABS: A1C % 7.9 % (4.0-6.0)
--- NOTE | 2017-12-09 21:45 | History & Physical ---
ADMIT DATE: 12/09/2017 REASON FOR ADMISSION: Hyponatremia with sodium of 121 in this patient with anxiety, agitation and behavioral disturbance. HISTORY OF PRESENT ILLNESS: An 82-year-old female sent from the halfway facility [facility] in [facility] to the Geropsych Unit. Workup reveal sodium of 121, so the patient is diverted to the medical floor to stabilize prior to going to the psychiatric unit. The patient is currently eating. Per Emergency Room physician note, the patient was complaining of nausea, but then asking for meals as well as she was hungry. She denies any pain, no headache, no chest pain, no abdominal pain. No leg pain, no leg swelling noted. No joint swelling noted. No new rashes noted. Remained afebrile and vital signs otherwise remained stable at present time. PAST MEDICAL HISTORY: Significant for personal history of self-harm and previous history of pneumonia, urinary tract infection, difficulty in walking. MEDICATIONS: At the halfway [facility] include Risperdal 0.25 mg twice a day, Protonix 40 once a day, citalopram 40 mg once a day, Ativan 1 mg q.8 hours and and Dulcolax suppository p.r.n., milk of magnesia 30 mL p.r.n., [place] 5/325 q.6 hours p.r.n. PAST MEDICAL HISTORY: The patient has advanced directive of no CPR with PLOST form filled out. ALLERGIES: CODEINE. SOCIAL HISTORY: Noncontributory. REVIEW OF SYSTEMS: See the history of present illness. PHYSICAL EXAMINATION: VITAL SIGNS: Height 1.63 meter, weight 68 kg, BMI 25.7, temperature 98.7, pulse 77, respiratory rate is 16, blood pressure 154/77, oxygen saturation 98% on room air. HEENT: Unremarkable. Mucosa is moist. No icterus, no pallor. No petechia. NECK: Supple. No JVD, bruit, or lymphadenopathy. LUNGS: Clear anteriorly. CARDIOVASCULAR: S1, S2 normal limits. No murmur, gallop or bruit. ABDOMEN: Soft, nontender. No RT bowel sounds active in all quadrants. EXTREMITIES: No leg edema noted. Dorsalis pedis palpable. CENTRAL NERVOUS SYSTEM: Cranial nerves intact, nonfocal. The patient attention span is short and get very anxious and unable to go much in the detail especially at present time as the patient is eating.unable to do gait as patient too anxious. LABORATORY DATA: WBC 8.4; hemoglobin 13; MCV 83; platelet count of 129,000; neutrophil 78%. Sodium 121, potassium 4.7, chloride 91, bicarbonate 24, BUN 15, creatinine 0.5, glucose of 175, calcium 9.1, bilirubin 0.4. Liver panel unremarkable. Cholesterol 194, triglyceride 91, HDL 65, LDL 114, and TSH is 1.24. Salicylic acid and acetaminophen level is negative and serum alcohol level is also negative. EKG showed normal sinus rhythm, no acute ST-T changes noted in the EKG. Incidentally, patient had lab from the [facility] on 11/18/2017. Sodium was that time 138 and a free T4 level was 1.18. TSH is 0.57. WBC was 7.3, hemoglobin 12.5, MCV 88 and a platelet of 284,000. Recent lab on 11/28/2017. Sodium was 125, potassium 4.7, chloride 97, bicarbonate 34, BUN 17, creatinine 0.52, glucose 221. ASSESSMENT AND PLAN: 1. Hyponatremia, etiology unclear. Need to rule out syndrome of inappropriate ADH versus recent medication use versus worsening of hyperglycemia. We will give 3% NaCl 40 mL per hour for 250 mL obtain a renal consult and monitor serum osmolarity, urine osmolarity and sodium level and go from there. 2. Diabetes mellitus. 3. Hypertension. 4. Advanced directive of DNR executed by PLOST form on 10/14/2017. 5. Anxiety and uncontrolled abnormal behavior. Further plan per Dr. Mercado psychiatrist. JOB# [id number] MTDD
[2017-12-10] MEDS: Hydrocodone/APAP 5mg/325mg Tab PO PRN (00:24)
[2017-12-10 06:23] LABS: % BASOPHILS 1.3 % (0.0-2.0); % EOSINOPHILS 5.2 % (0.0-5.0); % LYMPHOCYTES 22.9 % (20.0-50.0); % MONOCYTES 10.3 % (2.0-10.0); % NEUTROPHILS 60.3 % (40.0-80.0); BASOPHILE ABSOLUTE 0.1 Th/cumm (0-0.2); EOSINOPHILE ABSOLUTE 0.3 Th/cmm (0.1-0.4); HEMATOCRIT 37.5 % (41.0-60); HEMOGLOBIN 12.7 gm/dL (12-16); LYMPHOCYTE ABSOLUTE 1.5 Th/cmm (1.5-3.0); MEAN CELL VOLUME 83.7 fl (81-100); MEAN CORPUSCULAR HEMOGLOBIN 28.5 pg (27.0-31.0); MEAN PLATELET VOLUME 6.2 fl; MONOCYTE ABSOLUTE 0.7 Th/cmm (0.3-1.0); PLATELET COUNT 415 Th/cmm (150-400); RED BLOOD COUNT 4.48 Mil/cmm (3.80-5.20); RED CELL DISTRIBUTION WIDTH 12.9 % (11.5-20.0)
[2017-12-10 06:51] LABS: ALB/GLOB RATIO 1.2 (1.0-1.8); ALBUMIN 3.2 gm/dL (3.7-5.3); ALKALINE PHOSPHATASE 77 U/L (34-104); AMYLASE SERUM 31 U/L (29-103); ANION GAP 9.1 (7.0-16.0); BILIRUBIN,TOTAL 0.4 mg/dL (0.3-1.0); BUN - UREA NITROGEN 14 mg/dL (7-25); CALCIUM SERUM 8.7 mg/dL (8.6-10.3); CARBON DIOXIDE 26.2 mEq/L (21.0-31.0); CHLORIDE 98 mEq/L (98-107); CHOLESTEROL 167 mg/dL (<200); CREATININE - SERUM 0.6 mg/dL (0.6-1.2); GLUCOSE 104 mg/dL (70-105); HDL -HIGH DENSITY LIPOPROTEIN 59 mg/dL (23-92); LIPASE 23 U/L (11-82); POTASSIUM SERUM 4.3 mEq/L (3.5-5.1); SGOT 11 U/L (13-39); SGPT/ALT 8 U/L (7-52); SODIUM SERUM 129 mEq/L (136-145); TOTAL PROTEIN,SERUM 5.8 gm/dL (6.0-8.3); TRIGLYCERIDES 52 mg/dL (<150)
[2017-12-10 06:58] LABS: WHITE BLOOD COUNT 6.6 Th/cmm (4.8-10.8)
--- NOTE | 2017-12-10 07:48 | Diagnostic Imaging Report ---
CHEST X-RAY: AP view INDICATION: Pneumonia COMPARISON: None FINDINGS: Patient is rotated. There is soft tissue prominence of the right paratracheal region. Chronic changes are noted with no focal consolidation or effusions. Heart size is normal. Atherosclerosis is noted. Degenerative changes of the spine are noted. IMPRESSION: Chronic lung changes with no focal consolidation identified. Soft tissue prominence of the right paratracheal region which may be due to rotation and vasculature. Lymphadenopathy is less likely. Follow-up chest x-ray in neutral position or CT chest would provide additional detail and assessment. Atherosclerotic vascular disease.
[2017-12-10] MEDS: INSULIN ASPART SLIDING SCALE 100 UNITS/ML UNIT SUBQ SCH ×4 (08:02→21:02)
[2017-12-10] MEDS ORDERED: VTE Chemical Prophylaxis Screen/Admission MC PRN (09:33)
[2017-12-10] MEDS: Pantoprazole 40 mg EC Tab PO SCH (09:41)
--- NOTE | 2017-12-10 10:55 | Consultation ---
DATE OF CONSULTATION: 12/10/2017 ATTENDING PHYSICIAN: Dr. Eliecre Rivera. REASON FOR CONSULTATION: Hyponatremia. HISTORY OF PRESENT ILLNESS: The patient is an 82-year-old female who was transferred here to the Geropsych Unit. Workup revealed sodium of 121, so the patient was diverted to the medical floor to stabilize her prior to going to the psychiatric unit, and I am called in consultation as I am covering for Dr. Cayden Parikh. PAST MEDICAL HISTORY: Significant for a personal history of self-harm and psychosis. She has also had pneumonia and UTI in the past. Denies coronary artery disease, hypertension or diabetes mellitus. FAMILY HISTORY: Noncontributory. SOCIAL HISTORY: The patient does not drink or smoke. ALLERGIES: She is allergic to CODEINE. REVIEW OF SYSTEMS: As in history of present illness, all other systems reviewed and found to be negative. PHYSICAL EXAMINATION: VITAL SIGNS: Blood pressure is 154/77, temperature is 98.7, pulse 77, respirations 16. HEENT: Normocephalic, atraumatic. Pupils equal, round, reacting to light and accommodation. Extraocular movements are intact. CARDIOVASCULAR: S1, S2 heard. Regular rate and rhythm. LUNGS: Clear to auscultation bilaterally. ABDOMEN: Soft. No hepatosplenomegaly. EXTREMITIES: There is no cyanosis, clubbing or edema. NEUROLOGIC EXAM: Cranial nerves 2-12 are intact. There is no focal deficit. LABORATORY DATA: WBC 8.4, hemoglobin 13.0, hematocrit is 39 and platelet count 129,000. Sodium 121, potassium 4.7, chloride 91, bicarbonate 24, BUN 15, creatinine 0.5, glucose 175, calcium 9.1, bilirubin 0.4, cholesterol 194, HDL 65, LDL 114. TSH 1.24. ASSESSMENT AND PLAN: 1. Hyponatremia. The patient says that she has been drinking a lot of water and the patient has elevated blood sugar, which could have been causing this. However, it could also be psychogenic, polydipsia. Would agree with 3% saline and restrict fluids. 2. Diabetes mellitus. It is unclear if this is new onset or the patient just does not know that she has diabetes. We will cover with sliding scale insulin. 3. Hypertension. Continue antihypertensive medications. 4. Psychosis, per psychiatry. Thank you very much for the privilege of consulting on your patient, Dr. Rivera. [facility]# [id number]
[2017-12-10 18:17] LABS: URINE MICROSCOPIC INDICATED? YES; URINE SOURCE MIDSTREAM
[2017-12-10 18:25] LABS: URINE BILIRUBIN NEGATIVE (NEGATIVE); URINE BLOOD NEGATIVE (NEGATIVE); URINE GLUCOSE (UA) NEGATIVE (NEGATIVE); URINE KETONE NEGATIVE (NEGATIVE); URINE LEUKOCYTE ESTERASE TRACE (NEGATIVE); URINE NITRATE NEGATIVE (NEGATIVE); URINE PH 7.5 (4.6 - 8.0); URINE PROTEIN NEGATIVE (NEGATIVE); URINE UROBILINOGEN 0.2 E.U./dL (0.2 - 1.0)
[2017-12-10 18:39] LABS: URINE CLARITY SLIGHTLY HAZY (CLEAR); URINE COLOR YELLOW
[2017-12-10 18:40] LABS: URINE AMORPHOUS SEDIMENT FEW URATES (NONE SEEN); URINE BACTERIA NONE SEEN /hpf (NONE SEEN); URINE EPITHELIAL CELLS FEW /lpf (FEW); URINE RBC 0-2 /hpf (0-5); URINE WBC 0-2 /hpf (0-5)
--- NOTE | 2017-12-10 19:37 | History & Physical ---
ADMIT DATE: 12/10/2017 REQUESTING PHYSICIAN: Dr. Eliecer Rivera. REASON FOR CONSULTATION: History of psychosis. HISTORY OF PRESENT ILLNESS: This patient is an 82-year-old woman, resident of [facility]. Information obtained by directly interviewing the patient as well as reviewing the admission papers and they are reliable. JUSTIFICATION OF HOSPITALIZATION: The patient has been very confused and agitated and the patient has been sent to the hospital, but the patient is found to have hyponatremia and the patient has been noted to have sodium of 121 and patient has not been medically cleared and hence the patient has been admitted to the medical floor for stabilization. Chart is reviewed. The patient is interviewed. During the interview, the patient is getting easily irritable and angry and at the same time very confused and not making much sense. Review of the chart indicated that the patient has been on 40 mg of the citalopram and the patient's sleep is noted to be fair. Appetite is also noted to be fair. PAST PSYCHIATRIC HISTORY: The patient has mental illness for a long period of time and has been in a psychiatric hospital. The patient has been diagnosed to have schizoaffective disorder. SOCIAL HISTORY: The patient is a resident of the [facility]. MENTAL STATUS EXAMINATION: The patient is an 82-year-old woman looking her stated age, superficially cooperative. Eye contact is poor. Mood is noted to be irritable. Affect is constricted. Insight and judgment at this time are noted to be still impaired. Impulse control is noted to be limited. The patient is confused and not making much sense. The patient has paranoia, but denies any command hallucinations. DIAGNOSTIC IMPRESSION: AXIS IA: Psychotic disorder, not otherwise specified. AXIS IB. History of schizoaffective disorder. PLAN: To decrease the dose on the citalopram from 40 mg to 20 mg and possibly hold the medication until the sodium is going to be corrected. Thank you, Dr. Eliecer Rivera, for allowing me to participate in the care of the patient. JOB# [id number]
[2017-12-11] MEDS: INSULIN ASPART SLIDING SCALE 100 UNITS/ML UNIT SUBQ SCH ×4 (06:45→22:00)
[2017-12-11 07:06] LABS: % BASOPHILS 1.2 % (0.0-2.0); % EOSINOPHILS 5.3 % (0.0-5.0); % LYMPHOCYTES 27.5 % (20.0-50.0); % MONOCYTES 10.5 % (2.0-10.0); % NEUTROPHILS 55.5 % (40.0-80.0); BASOPHILE ABSOLUTE 0.1 Th/cumm (0-0.2); EOSINOPHILE ABSOLUTE 0.3 Th/cmm (0.1-0.4); HEMATOCRIT 38.8 % (41.0-60); LYMPHOCYTE ABSOLUTE 1.7 Th/cmm (1.5-3.0); MEAN CELL VOLUME 84.7 fl (81-100); MEAN CORPUSCULAR HEMOGLOBIN 28.3 pg (27.0-31.0); MEAN CORPUSCULAR HGB CONC 33.4 pg (28.0-36.0); MEAN PLATELET VOLUME 6.4 fl; MONOCYTE ABSOLUTE 0.6 Th/cmm (0.3-1.0); NEUTROPHILE ABSOLUTE 3.4 Th/cmm (1.8-8.0); PLATELET COUNT 386 Th/cmm (150-400); RED BLOOD COUNT 4.58 Mil/cmm (3.80-5.20); RED CELL DISTRIBUTION WIDTH 13.1 % (11.5-20.0); WHITE BLOOD COUNT 6.1 Th/cmm (4.8-10.8)
[2017-12-11 07:16] LABS: ALB/GLOB RATIO 1.2 (1.0-1.8); ALBUMIN 3.1 gm/dL (3.7-5.3); ALKALINE PHOSPHATASE 76 U/L (34-104); ANION GAP 10.3 (7.0-16.0); BILIRUBIN,TOTAL 0.4 mg/dL (0.3-1.0); BUN - UREA NITROGEN 18 mg/dL (7-25); CALCIUM SERUM 8.8 mg/dL (8.6-10.3); CARBON DIOXIDE 26.1 mEq/L (21.0-31.0); CHLORIDE 97 mEq/L (98-107); CREATININE - SERUM 0.6 mg/dL (0.6-1.2); GLUCOSE 87 mg/dL (70-105); POTASSIUM SERUM 4.4 mEq/L (3.5-5.1); SGOT 13 U/L (13-39); SGPT/ALT 10 U/L (7-52); SODIUM SERUM 129 mEq/L (136-145); TOTAL PROTEIN,SERUM 5.7 gm/dL (6.0-8.3)
[2017-12-11] MEDS: Pantoprazole 40 mg EC Tab PO SCH (09:42)
--- NOTE | 2017-12-11 18:23 | Progress Notes ---
DATE: 12/11/2017 SUBJECTIVE: Staff was spoken to. The patient is interviewed. Mood is noted to be irritable. Affect is constricted. Insight and judgment at this time are noted to be still impaired. Impulse control is noted to be limited. The patient's coping skills are noted to be very poor. The patient is screaming and yelling at this time. The patient is stating that she needs the lunch to be in here right away. The patient has no insight into her illness. ASSESSMENT: The patient is still grossly psychotic. PLAN: To continue the patient with the supportive therapy, encouraged the patient to verbalize the concerns rather than to act out. JOB# [id number]
[2017-12-12 06:16] LABS: ANION GAP 9.3 (7.0-16.0); BUN - UREA NITROGEN 22 mg/dL (7-25); CALCIUM SERUM 8.6 mg/dL (8.6-10.3); CARBON DIOXIDE 23.9 mEq/L (21.0-31.0); CHLORIDE 96 mEq/L (98-107); CREATININE - SERUM 0.6 mg/dL (0.6-1.2); GLUCOSE 97 mg/dL (70-105); POTASSIUM SERUM 4.2 mEq/L (3.5-5.1); SODIUM SERUM 125 mEq/L (136-145)
[2017-12-12] MEDS: INSULIN ASPART SLIDING SCALE 100 UNITS/ML UNIT SUBQ SCH ×4 (08:00→21:04)
[2017-12-12] MEDS ORDERED: Sodium Chloride 3% 250 ML IV ONE (09:10)
[2017-12-12] MEDS: Pantoprazole 40 mg EC Tab PO SCH (09:15)
--- NOTE | 2017-12-12 09:22 | Consultation ---
DATE OF CONSULTATION: 12/10/2017 PSYCHIATRIC CONSULTATION PATIENT'S AGE: 82. SEX: Female. PHYSICIAN: Dr. Christine Rivera. COVER CREASER: Dr. Bardales. REASON FOR THE CONSULT: Agitation. HISTORY OF PRESENT ILLNESS: The patient is an 82-year-old female who is known to me from treatment in the past for bipolar disorder. The patient was admitted to the hospital under the care of Dr. Eliecer Rivera and the patient has hyponatremia and also anxious and agitated and has behavioral disturbances. The patient lives in [facility] in [place] and the patient has been anxious and irritable. The patient was admitted to the hospital because of low sodium level instead of going to [facility]. She has been restless and anxious and also has been depressed. The patient was not able to carry on any current conversation during my interview because of her anxiety and at certain time she was yelling and screaming and was not able to express her needs. PAST PSYCHIATRIC HISTORY: The patient has history of bipolar disorder. Currently, the patient is not taking any antipsychotic medications. PAST MEDICAL HISTORY: The patient has a history of pneumonia and urinary tract infection and difficulty walking. SOCIAL HISTORY: The [facility] [place]. The patient was taking Risperdal 0.5 mg twice a day, but seemed like it was not helping the patient much. To the best of my recollection, the patient has one son. MENTAL STATUS EXAM: The patient appears her stated age. Anxious. Restless. Angry and irritable mood. Disorganized thoughts. The patient was not able to answer any questions regarding hallucinations or delusions. The patient was actively hallucinating and responding. Poor insight. Poor judgment. ASSESSMENT: Schizoaffective disorder, bipolar type, with psychotic features. TREATMENT PLAN: Monitor the patient's behavior and condition closely. We will start the patient on Seroquel and Klonopin. We will monitor the dose. Thanks to Dr. Rivera and will follow up with you. JOB# [id number]
--- NOTE | 2017-12-12 21:18 | Progress Notes ---
DATE: 12/12/2017 PSYCHIATRIC PROGRESS NOTE Staff was spoken to. The patient is interviewed. Mood is noted to be irritable. Affect is constricted. Coping skills are noted to be poor. The patient is screaming and yelling. Insight and judgment at this time are noted to be very much impaired. The patient has been having difficult time to cope with the stress. ASSESSMENT: The patient is still grossly psychotic. PLAN: To continue the patient with supportive therapy. I encourage the patient to verbalize the concerns rather than to act out. JOB# [id number]
[2017-12-13 05:08] LABS: % EOSINOPHILS 5.4 % (0.0-5.0); % LYMPHOCYTES 15.8 % (20.0-50.0); % MONOCYTES 11.3 % (2.0-10.0); % NEUTROPHILS 67.5 % (40.0-80.0); EOSINOPHILE ABSOLUTE 0.4 Th/cmm (0.1-0.4); HEMATOCRIT 38.3 % (41.0-60); HEMOGLOBIN 12.8 gm/dL (12-16); LYMPHOCYTE ABSOLUTE 1.2 Th/cmm (1.5-3.0); MEAN CELL VOLUME 84.5 fl (81-100); MEAN CORPUSCULAR HEMOGLOBIN 28.1 pg (27.0-31.0); MEAN CORPUSCULAR HGB CONC 33.3 pg (28.0-36.0); MEAN PLATELET VOLUME 6.5 fl; MONOCYTE ABSOLUTE 0.8 Th/cmm (0.3-1.0); NEUTROPHILE ABSOLUTE 4.9 Th/cmm (1.8-8.0); PLATELET COUNT 337 Th/cmm (150-400); RED BLOOD COUNT 4.54 Mil/cmm (3.80-5.20); RED CELL DISTRIBUTION WIDTH 12.8 % (11.5-20.0); WHITE BLOOD COUNT 7.3 Th/cmm (4.8-10.8)
[2017-12-13 05:27] LABS: ALB/GLOB RATIO 1.2 (1.0-1.8); ALBUMIN 3.2 gm/dL (3.7-5.3); ALKALINE PHOSPHATASE 71 U/L (34-104); ANION GAP 9.5 (7.0-16.0); BILIRUBIN,TOTAL 0.5 mg/dL (0.3-1.0); BUN - UREA NITROGEN 15 mg/dL (7-25); CALCIUM SERUM 8.7 mg/dL (8.6-10.3); CARBON DIOXIDE 26.8 mEq/L (21.0-31.0); CHLORIDE 99 mEq/L (98-107); CREATININE - SERUM 0.6 mg/dL (0.6-1.2); GLUCOSE 91 mg/dL (70-105); POTASSIUM SERUM 4.3 mEq/L (3.5-5.1); SGOT 12 U/L (13-39); SGPT/ALT 11 U/L (7-52); SODIUM SERUM 131 mEq/L (136-145); TOTAL PROTEIN,SERUM 5.9 gm/dL (6.0-8.3)
[2017-12-13] MEDS: INSULIN ASPART SLIDING SCALE 100 UNITS/ML UNIT SUBQ SCH ×4 (07:28→20:51)
[2017-12-13] MEDS: Pantoprazole 40 mg EC Tab PO SCH (09:22)
--- NOTE | 2017-12-13 22:43 | Progress Notes ---
DATE: 12/13/2017 SUBJECTIVE: Staff was spoken to. The patient is interviewed. Mood is noted to be irritable. Affect is constricted. Insight is noted to be still impaired. Impulse control is noted to be poor. The patient is screaming and yelling at this time. The patient has been having difficult time to cope with the stress. No side effects to the medications are noted. The patient has been easily getting upset. The patient has no coping skills and tends to be very impulsive. The patient is also noted very paranoid at this time. PLAN: In view of this one, it is decided to increase the dose on the Seroquel to 50 mg twice a day and follow the patient up with supportive therapy. JOB# [id number]
[2017-12-14 05:21] LABS: ANION GAP 9.9 (7.0-16.0); BUN - UREA NITROGEN 19 mg/dL (7-25); CALCIUM SERUM 8.9 mg/dL (8.6-10.3); CARBON DIOXIDE 27.1 mEq/L (21.0-31.0); CHLORIDE 96 mEq/L (98-107); CREATININE - SERUM 0.7 mg/dL (0.6-1.2); GLUCOSE 107 mg/dL (70-105); SODIUM SERUM 129 mEq/L (136-145)
[2017-12-14] MEDS: INSULIN ASPART SLIDING SCALE 100 UNITS/ML UNIT SUBQ SCH ×2 (06:56→11:34)
[2017-12-14] MEDS: Pantoprazole 40 mg EC Tab PO SCH (08:15)
--- NOTE | 2017-12-14 18:41 | Discharge Summary ---
DATE OF DISCHARGE: 12/14/2017 FINAL DIAGNOSES: 1. Hyponatremia due to increase free water intake, improved after 2 times 3% NaCl 250 mL administration over 6 hrs and fluid restrictions, monitor BMP periodically. 2. Noninsulin dependent diabetes mellitus. 3. Hypertension with atherosclerotic heart disease seen on the chest x-ray, calcification in the aorta in the heart. 4. Anxiety with uncontrolled abnormal behavior with poor coping skill to stress leading into easy upset and paranoid ideation and poor impulse control with a significant amount of yelling. Advanced directive of no CPR. DNR status on reports from 10/14/2017. 5. Hypoalbuminemia with albumin level of 3.2. 6. Essential tremors of the upper extremities. 7. Chronic constipation. HOSPITAL COURSE AND IMPORTANT LABS: An 82-year-old female who presented to the Emergency Room from [facility] due to the poor impulse control, yelling and not cooperating with care. The patient found to have a sodium level of 123, so admitted to the medical floor. The patient received 3% NaCl, sodium increased to 131, subsequently dropped down again to the 125. The patient received a second bolus of 3% NaCl at 40 mL per hour for 250 mL. A renal consult also obtained and inappropriate syndrome of ADH also diagnosed, fluid restriction started. The patient is having a significant hard time coping with the stress, is getting easily upset and irritable mood, affects very restricted and poor coping and impulse control skills, so the patient is being admitted to the Geropsych Unit. JOB# [id number] MTDTaya
== END 2017-12-14 11:58 | DRG 641 ==
LOC: ER 15:26 → MSI 17:10 → TELE 19:06
PROVIDERS: ADMIT Internal Medicine; ATTEND Internal Medicine
DX: E87.1 Hypo-osmolality and hyponatremia (principal); I10 Essential (primary) hypertension; Z66 Do not resuscitate; F41.9 Anxiety disorder, unspecified; E11.65 Type 2 diabetes mellitus with hyperglycemia; F25.0 Schizoaffective disorder, bipolar type; F29 Unspecified psychosis not due to a substance or known physiological condition; I25.10 Atherosclerotic heart disease of native coronary artery without angina pectoris; K59.09 Other constipation; R25.1 Tremor, unspecified; E88.09 Other disorders of plasma-protein metabolism, not elsewhere classified; Z91.5 Personal history of self-harm; Z88.5 Allergy status to narcotic agent
CPT/HCPCS: 36415-UA; 71045-TC; 80048-TC; 80053-TC; 80061-TC; 80320-TC; 80329-TC; 81001-TC; 82140-TC; 82150-TC; 82948-90; 83036-90; 83690-TC; 83880-TC; 83930-90; 83935-90; 84300-TC; 84443-TC; 85025-TC; 86592-TC; 86803-90; 87340-90; 93005; 94760; 97530; J1644; J1815; J2060; J7131; X3904; Z7610

== ENCOUNTER 2017-12-14 11:59 | Inpatient (IN) | payer MEDICARE, OTHER ==
[2017-12-14] MEDS ORDERED: Magnesium Hydroxide (MOM) 30 mL UDC PO PRN ×2 (13:35→16:48)
[2017-12-14] MEDS: INSULIN ASPART SLIDING SCALE 100 UNITS/ML UNIT SUBQ SCH ×2 (14:16→21:06)
[2017-12-14 16:48] VITALS: BP 101/57
[2017-12-14] MEDS ORDERED: Maalox 30 mL Cup PO PRN (16:48)
--- NOTE | 2017-12-14 17:54 | Progress Notes ---
DATE: 12/14/2017 PSYCHIATRIC PROGRESS NOTE SUBJECTIVE: Staff was spoken to. The patient is interviewed. Mood is noted to be irritable. Affect is constricted. Insight and judgment at this time are noted to be still impaired. Impulse control is noted to be poor. Coping skills are also noted to be very poor. The patient has been having difficult time to cope with the stress. The patient is screaming and yelling at this time. The patient has no frustration tolerance. The patient wants to get everything done as of yesterday. The patient's sodium at this time is 129 and glucose is 107. ASSESSMENT: The patient is still psychotic. PLAN: To continue the patient with supportive therapy and continue the patient with Seroquel 50 mg b.i.d. and follow the patient up. JOB# [id number]
[2017-12-15] MEDS: Hydrocodone/APAP 5mg/325mg Tab PO PRN (03:23)
--- NOTE | 2017-12-15 03:46 | History & Physical ---
ADMIT DATE: 12/14/2017 INTERMEDICINE CONSULTATION REQUESTING PHYSICIAN: Dr. Robbins. REASON FOR CONSULTATION: Hyponatremia, hypertension, non-insulin dependent diabetes mellitus, hypalbuminemia. HISTORY OF PRESENT ILLNESS: The patient is an 82-year-old female initially admitted to the medical floor on 12/09/2017 with hyponatremia with sodium of 123, subsequently sodium level improved to 131 and 129 respectively. The patient is still having significant amount of irritable mood, restricted affect, and poor impulse control and poor coping with stressing leading into paranoid behavior, severe yelling and aggressive behavior, so I am going to the Geropsych Unit on 12/14/2017. SUBJECTIVE: The patient saying stopped talking and patient became very much agitated and anxious with little movement or asking any question. Subsequently, she comes down and says he has no headache, no chest pain, no abdominal pain. Denies any leg swelling or joint swelling, still feel very thirsty and keep asking for increased amount of water intake. The patient denies any pain at present time. PAST MEDICAL HISTORY: As mentioned above. CURRENT MEDICATIONS: Please see the list. ALLERGIES: CODEINE. FAMILY HISTORY: Noncontributory. REVIEW OF SYSTEMS: See the history of present illness. PHYSICAL EXAMINATION: VITAL SIGNS: Temperature 98.8, pulse 67, respiratory rate 20, blood pressure 117/67. Accu-Cheks 100, 191. HEENT: No icterus, no pallor. Mucosa slightly dry. Skin turgor normal. NECK: Supple. No JVD, bruit, or lymphadenopathy. LUNGS: Clear. CARDIOVASCULAR: S1, S2 normal limits. No gallop or bruit. ABDOMEN: Soft, obese and benign. EXTREMITIES: No leg edema noted. CENTRAL NERVOUS SYSTEM: The patient had a spontaneous tremor. Speech is okay. Moving all extremities significant difficulty from standing up from a supine and transferring from the bed to the wheelchair. LABORATORY TESTS: The sodium 129, potassium 4.0, chloride 96, bicarbonate 27, BUN 19, creatinine 0.7, glucose 107, calcium of 8.9. Other significant laboratory includes WBC 7.3; hemoglobin 12.8; MCV 84; platelet count of 237,000; neutrophils 67%. Liver panel unremarkable except albumin of 3.2. BNP 78. Ammonia level 47. Cholesterol 167, LDL 98, HDL 59, triglycerides 52. Amylase 31, lipase 23. TSH 1.24. RPR negative. Hemoglobin A1c 7.9 on 12/09/2017. ASSESSMENT AND PLAN: 1. Hyponatremia secondary to increased thirst due to the psychiatric problem and psychiatric medication side effect leading into the dryness in the mucosa. Fluid restriction at present time. Monitor BMP. 2. Noninsulin dependent diabetes mellitus. Hemoglobin A1c 7.9. Continue Accu-Chek sliding scale and current treatment with sliding scale t.i.d. a.c. Metformin 850 mg twice a day. 3. Gastroesophageal reflux disease. Continue Protonix 40 once a day. 4. Chronic constipation. Continue Dulcolax 10 mg suppository as needed. 5. Hypertension. Currently stable. The patient is on Lasix 20 once a day. We will discontinue that. We can increase in the hyponatremia. The patient is also on Cozaar 25 mg once a day. We will continue with that and monitor blood pressure closely. 6. Hypoalbuminemia. Advised the patient to continue with Glucerna supplement 1 can 3 times a day, diabetic diet and go from there. 7. Tremor. Fall precaution. Continue physical therapy. 8. Psychosis and anxiety with poor coping skill, restricted affect and irritable mood. [facility] Further plan per Dr. Robbins currently on Seroquel 50 mg twice a day and Ativan 1 mg every 4 hours p.r.n., Klonopin 0.5 mg twice a day on schedule. 9. Degenerative joint disease and chronic pain. The patient currently on Dysart 5/325 q.6 hours p.r.n. JOB# [id number]
[2017-12-15] MEDS: INSULIN ASPART SLIDING SCALE 100 UNITS/ML UNIT SUBQ SCH ×4 (06:44→20:28)
[2017-12-15 07:51] LABS: ANION GAP 13.2 (7.0-16.0); BUN - UREA NITROGEN 17 mg/dL (7-25); CHLORIDE 95 mEq/L (98-107); CREATININE - SERUM 0.5 mg/dL (0.6-1.2); GLUCOSE 96 mg/dL (70-105); POTASSIUM SERUM 4.2 mEq/L (3.5-5.1); SODIUM SERUM 128 mEq/L (136-145)
[2017-12-15] MEDS: Pantoprazole 40 mg EC Tab PO SCH (09:22)
[2017-12-15] MEDS: Multivitamin Tab PO SCH (09:22)
--- NOTE | 2017-12-15 22:52 | Psychiatric Evaluation ---
DATE OF SERVICE: 12/14/2017 IDENTIFYING DATA: Chart is reviewed. Staff was spoken to. The patient is interviewed. JUSTIFICATION OF HOSPITALIZATION: The patient is admitted here because of her acute agitation and psychosis. CHIEF COMPLAINT: "I need something to be done right away and I cannot wait." HISTORY OF PRESENT ILLNESS: This is one of multiple psychiatric hospitalizations for this patient who has been diagnosed with schizoaffective disorder and has been brought into the hospital because of the hyponatremia and hypertension. The patient has been on the medical floor on 12/09/2017 and has been stabilized medically and the patient has been transferred to the Geropsych Unit on 12/14/2017 in view of her acute psychosis. The chart is reviewed. The patient is interviewed. The patient's sodium level started to improve. The patient, however, continues to be irritable, paranoid, has been displaying the poor impulse control. The patient has been screaming and yelling. The patient is demanding. PAST PSYCHIATRIC HISTORY: Please refer to the above. The patient had been hospitalized here once before and the patient is seen by me on the medical floor for her problems. SUBSTANCE ABUSE HISTORY: None. PHYSICAL OR SEXUAL ABUSE HISTORY: None. LEGAL PROBLEMS: None at this time. STRENGTH AND ASSETS: The patient is motivated at this time. MENTAL STATUS EXAMINATION: The patient is looking at her stated age, superficially cooperative. Eye contact is poor. Mood is noted to be irritable. Affect is constricted. Insight and judgment are very much impaired. The patient is screaming and yelling at this time. The patient has no insight into her illness. The patient has been stating that people are not treating ____ and she is very much upset. The patient has paranoid delusions. The patient is alert and aware that she is in the hospital. Attention span and concentration are noted to be very poor. Short and long-term are noted to be impaired. The patient has been screaming and yelling at this time. The patient is frustrated with her multiple medical problems. DIAGNOSTIC IMPRESSION: Schizoaffective disorder. PLAN: To continue the patient's Seroquel and Klonopin and follow the patient up. Physical examination is requested by Dr. Eliecer Rivera. JOB# [id number]
--- NOTE | 2017-12-16 05:52 | Consultation ---
DATE OF CONSULTATION: 12/15/2017 REQUESTING PHYSICIAN: Jace Robbins M.D. TYPE OF CONSULTATION: Psychology. HISTORY OF PRESENT ILLNESS: The patient is an 82-year-old female. The patient is a [facility]. The following is by review of the medical record and by the patient's self report. According to record review, the patient was admitted onto the medical floor and was seen by Dr. Eliecer Rivera. The patient was stabilized and Dr. Rivera transferred the patient to the geropsychiatric unit to be admitted under Dr. Robbins 's care for increased agitation and confusion. According to the most recent assessment, the patient is getting easily irritable and anxious. Upon interview, the patient presents as confused and disoriented and is experiencing shortness of breath and sweating profusely. This staff writer informed nursing of the patient's SOB and diaphoresis and breathing treatment was ordered. The patient is not making much sense at the time of this interview. The patient did not answer the questions about experiencing any suicidal ideation. PAST MEDICAL HISTORY: Please see history and physical by Dr. Eliecer Rivera. PAST PSYCHIATRIC HISTORY: The patient has a history of mental illness as well as previous hospitalizations for a psychiatric diagnosis. The patient has a history of schizoaffective disorder. The patient is under the care of a psychiatrist at her placement. SUBSTANCE ABUSE HISTORY: The patient did not answer this question. No information is available. PSYCHOSOCIAL HISTORY: The patient did not answer questions about occupational or educational history or christian affiliation. The patient did not answer questions about history of physical or sexual abuse or current legal problems. The patient did not answer questions about marital status, family relationships, or whether the patient has children. The patient is a resident of [facility]. It is anticipated the patient will return there upon stabilization. MENTAL STATUS EXAMINATION: The patient appears to be her stated age. The patient's attitude is superficially cooperative. Eye contact is poor. Speech is delayed. Mood is irritable. Affect is constricted. Thought process shows to be confused. The patient denied any auditory or visual hallucinations. There seems to be some paranoid ideation present. The patient denied any suicidal ideation , plan or intention. The patient's impulse control is limited. Concentration is poor. The patient did not participate in the memory assessment. Sensorium is alert and oriented to self and place only. The patient did not participate in the interpretation of proverbs. The patient seems extremely frustrated and confused. Insight is poor. Judgment is compromised. DIAGNOSTIC IMPRESSION: AXIS I: History of schizoaffective disorder. AXIS II: Deferred. AXIS III: Please see history and physical by Dr. Eliecer Rivera. PLAN: The patient has been seen by Dr. Robbins for psychiatric evaluation and for the management of the patient's psychotropic medications. We will provide coping strategies as well as supportive psychotherapy. We will provide motivational enhancement for the patient to become compliant and stay compliant with all aspects of her care and treatment. We will provide reality orientation, differentiation, and integration. We will provide coping strategies including stress management to increase the patient's frustration tolerance. The patient has had recent screaming and yelling episodes. We will encourage the patient to be able to demonstrate emotional and self-regulation prior to her discharge. We will also provide coping strategies for phase of life issues and chronic long-term severe mental illness. Thank you, Dr. Robbins for this consult and the opportunity to participate with you in this patient's care. JOB# [id number] DURAN
[2017-12-16] MEDS: INSULIN ASPART SLIDING SCALE 100 UNITS/ML UNIT SUBQ SCH ×4 (06:30→21:52)
[2017-12-16] MEDS: Multivitamin Tab PO SCH (09:33)
[2017-12-16] MEDS: Pantoprazole 40 mg EC Tab PO SCH (09:34)
--- NOTE | 2017-12-16 20:28 | Progress Notes ---
DATE: 12/16/2017 SUBJECTIVE: Staff was spoken to. The patient is interviewed. Mood is noted to be irritable. Affect is constricted. The patient is still screaming and yelling at the top of her lungs. The patient needs to be met right away, coping skills are noted to be poor. The patient is currently on Klonopin and Seroquel and has been able to tolerate the medication. ASSESSMENT: The patient is still very paranoid and impulsive. PLAN: To continue the patient with the current medications and followup. JOB# [id number]
[2017-12-17] MEDS: INSULIN ASPART SLIDING SCALE 100 UNITS/ML UNIT SUBQ SCH ×4 (06:44→20:40)
[2017-12-17] MEDS: Pantoprazole 40 mg EC Tab PO SCH (09:04)
[2017-12-17] MEDS: Multivitamin Tab PO SCH (09:04)
[2017-12-18] MEDS: INSULIN ASPART SLIDING SCALE 100 UNITS/ML UNIT SUBQ SCH ×4 (06:35→20:30)
--- NOTE | 2017-12-18 06:50 | Progress Notes ---
DATE: 12/17/2017 PSYCHIATRIC PROGRESS NOTE SUBJECTIVE: Staff was spoken to. The patient is interviewed. Mood is noted to be irritable. Affect is constricted. Coping skills are noted to be poor. The patient has been having difficult time to cope with the stress. The patient is tending to scream and yell. The patient needs to be redirected. ASSESSMENT: The patient is still impulsive and paranoid. PLAN: To continue the patient with the supportive therapy and follow. JOB# [id number]
[2017-12-18] MEDS: Pantoprazole 40 mg EC Tab PO SCH (08:55)
[2017-12-18] MEDS: Multivitamin Tab PO SCH (08:55)
--- NOTE | 2017-12-18 18:36 | Progress Notes ---
DATE: 12/18/2017 SUBJECTIVE: Staff was spoken to. The patient is interviewed. Mood is noted to be irritable. Affect is constricted. Insight and judgment at this time are noted to be still impaired. Impulse control is noted to be poor. Coping skills are also noted to be very poor. The patient is screaming and yelling and has been thinking constantly, negative attention. The patient needs to be treated redirected. The patient is currently on 12.5 mg on the Seroquel, I am planning to increase it to 25 mg twice a day and the patient is going to be closely monitored with these medications and followed. The patient is not ready to be discharged to a lower level of care in view of her psychosis and impulsivity. [facility]# [id number]
[2017-12-18] MEDS: Hydrocodone/APAP 5mg/325mg Tab PO PRN (20:29)
[2017-12-19] MEDS: INSULIN ASPART SLIDING SCALE 100 UNITS/ML UNIT SUBQ SCH ×4 (06:33→20:24)
[2017-12-19] MEDS: Multivitamin Tab PO SCH (09:05)
[2017-12-19] MEDS: Pantoprazole 40 mg EC Tab PO SCH (09:55)
--- NOTE | 2017-12-19 22:12 | Progress Notes ---
DATE: 12/19/2017 PSYCHIATRIC PROGRESS NOTE SUBJECTIVE: Staff was spoken to. The patient is interviewed. Mood is noted to be irritable. Affect is constricted. Coping skills at this time are noted to be poor. The patient is still screaming and yelling. The patient has no insight into her illness. The patient has been getting easily upset for being in here. The patient has no patience at all. ASSESSMENT: The patient is still grossly psychotic and having acute mood swings. PLAN: To continue the patient with a Seroquel, which she has been getting at 25 mg b.i.d. and follow the patient with supportive therapy and followup. [facility]# [id number]
[2017-12-20] MEDS: INSULIN ASPART SLIDING SCALE 100 UNITS/ML UNIT SUBQ SCH ×4 (06:30→20:26)
[2017-12-20] MEDS: Pantoprazole 40 mg EC Tab PO SCH (09:10)
[2017-12-20] MEDS: Multivitamin Tab PO SCH (09:10)
--- NOTE | 2017-12-21 01:31 | Progress Notes ---
DATE: 12/20/2017 SUBJECTIVE: Staff was spoken to. The patient is interviewed. Mood is noted to be irritable. Affect is constricted. Continues to be screaming and yelling. The patient has no insight into her illness. Coping skills are noted to be extremely poor. The patient, however, has been isolative and withdrawn, refusing to get into the bed. No side effects to the medications are noted at this time. ASSESSMENT: The patient is still psychotic and impulsive. PLAN: To continue the patient with the supportive therapy and followup. JOB# [id number]
[2017-12-21] MEDS: INSULIN ASPART SLIDING SCALE 100 UNITS/ML UNIT SUBQ SCH ×4 (06:39→20:51)
[2017-12-21 06:40] LABS: % BASOPHILS 0.9 % (0.0-2.0); % EOSINOPHILS 5.8 % (0.0-5.0); % MONOCYTES 9.1 % (2.0-10.0); % NEUTROPHILS 70.2 % (40.0-80.0); BASOPHILE ABSOLUTE 0.1 Th/cumm (0-0.2); EOSINOPHILE ABSOLUTE 0.5 Th/cmm (0.1-0.4); HEMATOCRIT 38.8 % (41.0-60); LYMPHOCYTE ABSOLUTE 1.2 Th/cmm (1.5-3.0); MEAN CORPUSCULAR HEMOGLOBIN 28.1 pg (27.0-31.0); MEAN CORPUSCULAR HGB CONC 33.4 pg (28.0-36.0); MEAN PLATELET VOLUME 6.5 fl; MONOCYTE ABSOLUTE 0.8 Th/cmm (0.3-1.0); NEUTROPHILE ABSOLUTE 5.8 Th/cmm (1.8-8.0); PLATELET COUNT 300 Th/cmm (150-400); RED BLOOD COUNT 4.62 Mil/cmm (3.80-5.20); RED CELL DISTRIBUTION WIDTH 12.9 % (11.5-20.0); WHITE BLOOD COUNT 8.4 Th/cmm (4.8-10.8)
[2017-12-21 06:56] LABS: ALB/GLOB RATIO 1.3 (1.0-1.8); ALBUMIN 3.4 gm/dL (3.7-5.3); ALKALINE PHOSPHATASE 70 U/L (34-104); BILIRUBIN,TOTAL 0.5 mg/dL (0.3-1.0); BUN - UREA NITROGEN 16 mg/dL (7-25); CHLORIDE 95 mEq/L (98-107); CREATININE - SERUM 0.5 mg/dL (0.6-1.2); GLUCOSE 108 mg/dL (70-105); SGOT 15 U/L (13-39); SGPT/ALT 16 U/L (7-52); SODIUM SERUM 127 mEq/L (136-145)
[2017-12-21] MEDS: Pantoprazole 40 mg EC Tab PO SCH (08:28)
[2017-12-21] MEDS: Multivitamin Tab PO SCH (08:29)
--- NOTE | 2017-12-22 00:37 | Progress Notes ---
DATE: 12/21/2017 SUBJECTIVE: Staff was spoken to. The patient is interviewed. Mood is noted to be irritable. Affect is constricted. Insight and judgment at this time are noted to be impaired. Impulse control is noted to be limited. The patient is screaming and yelling. The patient is not able to contract for safety. He has paranoid delusions. Mood swings are still a concern. ASSESSMENT: The patient is still impulsive. PLAN: To continue the patient with the supportive therapy and increase the dose on the Seroquel to 50 mg twice a day and follow the patient up. JOB# [id number]
[2017-12-22] MEDS: INSULIN ASPART SLIDING SCALE 100 UNITS/ML UNIT SUBQ SCH ×4 (06:43→20:45)
[2017-12-22] MEDS: Pantoprazole 40 mg EC Tab PO SCH (08:35)
[2017-12-22] MEDS: Multivitamin Tab PO SCH (08:38)
--- NOTE | 2017-12-22 19:48 | Progress Notes ---
DATE: 12/22/2017 SUBJECTIVE: Staff was spoken to. The patient is interviewed. Mood is noted to be irritable. Affect is constricted. The patient is still screaming and yelling. The patient has been having difficult time to cope with the stress and because of the patient's behavior problems, the patient is not going to be accepted back at the same facility and patient case coordinator have been trying to look for placement for this patient. ASSESSMENT: The patient is still impulsive and paranoid and having acute mood swings. PLAN: To continue the patient with the supportive therapy and await for placement. JOB# [id number]
[2017-12-23] MEDS: INSULIN ASPART SLIDING SCALE 100 UNITS/ML UNIT SUBQ SCH ×4 (06:55→21:44)
[2017-12-23] MEDS: Multivitamin Tab PO SCH (08:16)
[2017-12-23] MEDS: Pantoprazole 40 mg EC Tab PO SCH (08:16)
--- NOTE | 2017-12-23 14:49 | Progress Notes ---
DATE: 12/23/2017 PSYCHIATRIC PROGRESS NOTE SUBJECTIVE: Staff was spoken to. The patient is interviewed. Mood is noted to be irritable. Affect is constricted. The patient is still screaming and yelling and has been having difficult time to cope with the stress. The patient is currently on Seroquel, she has been getting 50 mg twice a day and the patient's aggressive behavior seems to be coming under control, but the patient seems to be asking for help all the time. The patient's coping skills are noted to be still poor. ASSESSMENT: The patient is still needy and psychotic. PLAN: To continue the patient with the supportive therapy and followup. [facility]# [id number]
[2017-12-23] MEDS: Hydrocodone/APAP 5mg/325mg Tab PO PRN (21:43)
[2017-12-24] MEDS: INSULIN ASPART SLIDING SCALE 100 UNITS/ML UNIT SUBQ SCH ×4 (07:19→21:49)
[2017-12-24] MEDS: Pantoprazole 40 mg EC Tab PO SCH (08:39)
[2017-12-24] MEDS: Multivitamin Tab PO SCH (10:23)
[2017-12-25] MEDS: INSULIN ASPART SLIDING SCALE 100 UNITS/ML UNIT SUBQ SCH ×4 (06:32→21:27)
[2017-12-25] MEDS: Multivitamin Tab PO SCH (09:04)
[2017-12-25] MEDS: Pantoprazole 40 mg EC Tab PO SCH (09:05)
--- NOTE | 2017-12-25 18:58 | Progress Notes ---
DATE: 12/25/2017 SUBJECTIVE: Staff was spoken to. The patient is interviewed. Mood is noted to be irritable. Affect is constricted. Insight and judgment is noted to be still impaired. The patient is still screaming and yelling. strategic account manager has been spoken to the previous facility and they do not want the patient back at their facility because of her disruptive behavior. The patient is currently maintained on Seroquel, which she has been getting at 50 mg twice a day and the patient has been able to tolerate. PLAN: To continue the patient with the supportive therapy, encouraged the patient to verbalize the concerns rather than to act out. JOB# [id number]
[2017-12-26] MEDS: INSULIN ASPART SLIDING SCALE 100 UNITS/ML UNIT SUBQ SCH ×4 (07:30→21:18)
[2017-12-26] MEDS: Multivitamin Tab PO SCH (09:06)
[2017-12-26] MEDS: Pantoprazole 40 mg EC Tab PO SCH (09:06)
--- NOTE | 2017-12-26 14:34 | Progress Notes ---
DATE: 12/26/2017 SUBJECTIVE: Staff was spoken to. The patient is interviewed. Mood is noted to be irritable. Affect is constricted. The patient is still screaming and yelling this morning. The patient is stating that she has a mail that she needs to check ____. The patient has no coping skills. The patient is very limited with her insight and judgment. The patient is currently on 50 mg twice a day of Seroquel, which is going to be gradually increased to 50 mg twice a day and then in view of her impulsivity, possibly the patient is going to be started with low dose of the Depakote, which is going to be given at 125 mg twice a day and the patient is going to be followed up with the supportive therapy. The patient at this time has very difficult time to deal with impulsivity and we are looking for possible placement of this patient because the previous facility is not willing to accept the patient back. ASSESSMENT: The patient is still impulsive and has been having acute mood swings. PLAN: To continue the patient with the above changes with the medications and followup. JOB# [id number]
[2017-12-27] MEDS: INSULIN ASPART SLIDING SCALE 100 UNITS/ML UNIT SUBQ SCH ×3 (06:33→17:48)
[2017-12-27] MEDS: Pantoprazole 40 mg EC Tab PO SCH (09:23)
[2017-12-27] MEDS: Multivitamin Tab PO SCH (09:23)
--- NOTE | 2017-12-27 13:59 | Progress Notes ---
DATE: 12/27/2017 SUBJECTIVE: Staff was spoken. The patient is interviewed. Mood is noted to be irritable. Affect is constricted. The patient is still screaming and yelling. The patient has no insight into her illness. The patient has been testing the limits constantly whenever she does not get her way. She has been resorting to aggressive and verbally abusive behavior. The patient is currently on 50 mg twice a day of the Seroquel, which is going to be gradually increased to 3 times a day and followed up. JOB# [id number]
--- NOTE | 2017-12-27 17:40 | Progress Notes ---
INPATIENT PROGRESS NOTE: DATE: 12/27/2017 SUBJECTIVE: The patient was seen briefly. Mood is irritable. The patient continues to have screaming and yelling episodes. The patient has no insight into her illness or the reasons for hospitalization. The patient has been testing limits with the staff. The patient presents as verbally abusive and aggressive. The patient does not appear to be able to benefit from psychotherapeutic interventions. OBJECTIVE: Mood: irritable. Affect: constricted. Speech: Loud with yelling episodes. Thought process is confused. Paranoid Ideation present. Behavior is poorly redirectable and testing limits. Poor response to treatment. ASSESSMENT: Dementia with Behavioral Disturbance PLAN: Behavioral management by this creative services writer will be considered for followup visits. The patient does not seem to be able to benefit and is not responding to treatment. Therefore, psychology services are temporarily suspended. Followup is contingent on the patient's ability to demonstrate capacity to benefit or request by the MD psychiatrist as well as from the staff and/or the family. The patient's family has visited the patient and had multiple complaints about the patient's care according to the staff. These will be addressed and followed up with case management. JOB# [id number] DURAN
== END 2017-12-27 18:00 | DRG 885 ==
LOC: GERO 11:59
PROVIDERS: ADMIT Psychiatry & Neurology Psychiatry; ATTEND Psychiatry & Neurology Psychiatry
DX: F25.9 Schizoaffective disorder, unspecified (principal); E87.1 Hypo-osmolality and hyponatremia; F03.91 Unspecified dementia, unspecified severity, with behavioral disturbance; I10 Essential (primary) hypertension; F39 Unspecified mood [affective] disorder
CPT/HCPCS: 36415-UA; 80048-TC; 80053-TC; 82948-90; 85025-TC; 94760; 97530; J1815; X3904; Z7610

== ENCOUNTER 2018-05-22 17:10 | Inpatient (IN) | payer MEDICARE, OTHER ==
[2018-05-22] MEDS ORDERED: Lactated Ringer 1,000 ML IV ONE (17:25)
[2018-05-22 17:42] LABS: EOSINOPHILE ABSOLUTE 0.1 Th/cmm (0.1-0.4); HEMATOCRIT 42.7 % (41.0-60); HEMOGLOBIN 14.1 gm/dL (12-16); LYMPHOCYTE ABSOLUTE 0.7 Th/cmm (1.5-3.0); MEAN CELL VOLUME 86.5 fl (81-100); MEAN CORPUSCULAR HEMOGLOBIN 28.5 pg (27.0-31.0); MEAN PLATELET VOLUME 6.3 fl; MONOCYTE ABSOLUTE 0.7 Th/cmm (0.3-1.0); NEUTROPHILE ABSOLUTE 16.5 Th/cmm (1.8-8.0); PLATELET COUNT 423 Th/cmm (150-400); RED BLOOD COUNT 4.93 Mil/cmm (3.80-5.20); RED CELL DISTRIBUTION WIDTH 12.8 % (11.5-20.0)
[2018-05-22 18:09] LABS: ALB/GLOB RATIO 1.3 (1.0-1.8); ALBUMIN 3.8 gm/dL (3.7-5.3); ALKALINE PHOSPHATASE 48 U/L (34-104); ANION GAP 18.3 (7.0-16.0); BILIRUBIN,TOTAL 0.4 mg/dL (0.3-1.0); BUN - UREA NITROGEN 9 mg/dL (7-25); CALCIUM SERUM 9.4 mg/dL (8.6-10.3); CARBON DIOXIDE 20.3 mEq/L (21.0-31.0); CHLORIDE 85 mEq/L (98-107); CREATININE - SERUM 0.5 mg/dL (0.6-1.2); GLUCOSE 249 mg/dL (70-105); MAGNESIUM 1.6 mg/dL (1.9-2.7); PHOSPHOROUS 3.2 mg/dL (2.5-5.0); POTASSIUM SERUM 4.6 mEq/L (3.5-5.1); SGOT 17 U/L (13-39); SGPT/ALT 10 U/L (7-52); TOTAL PROTEIN,SERUM 6.8 gm/dL (6.0-8.3); VALPROIC ACID 29.3 ug/mL (50.0-100.0)
[2018-05-22 18:52] LABS: SODIUM SERUM 119 mEq/L (136-145)
[2018-05-22] MEDS ORDERED: Sodium Chloride 0.9% 1,000 ML IV ONE (19:05)
[2018-05-22 19:13] LABS: LYMPHOCYTE 10 % (20-50); MONOCYTE 4 % (2-10); NEUTROPHILS 86 % (40-80)
--- NOTE | 2018-05-22 19:29 | ED Physician Chart ---
ED Chief Complaint/HPI - Patient Information Date Seen:: 05/22/18 Time Seen:: 17:22 Chief Complaint:: shakiness, off Resperidol History of Present Illness:: shakiness, off Resperidol c/o abdominal pain. Allergies:: Allergies Allergy/AdvReac Type Severity Reaction Status Date / Time codeine Allergy Verified 11/25/16 20:24 Vitals:: Vital Signs - 8 hr 05/22/18 17:22 Temp 98.0 F HR 87 RR 23 BP 157/82 O2 Sat % 95 Historian:: Patient Review:: Nurse's Note Reviewed, Transfer documents Reviewed ED Review of Systems - Review of Systems General/Constitutional: No fever, No chills, No weight loss, No weakness, No diaphoresis, No edema, No loss of appetite Skin: No skin lesions, No rash, No bruising Head: No headache, No light-headedness Eyes: No loss of vision, No pain, No diplopia ENT: No earache, No nasal drainage, No sore throat, No tinnitus Neck: No neck pain, No swelling, No thyromegaly, No stiffness, No mass noted Cardio Vascular: No chest pain, No palpitations, No PND, No orthopnea, No edema Pulmonary: No SOB, No cough, No sputum, No wheezing GI: Nausea, No vomiting, No diarrhea, Pain, No melena, No hematochezia, No constipation, No hematemesis G/U: No dysuria, No frequency, No hematuria Musculoskeletal: No bone or joint pain, No back pain, No muscle pain Endocrine: No polyuria, No polydipsia Psychiatric: No prior psych history, No depression, No anxiety, No suicidal ideation Hematopoietic: No bruising, No lymphadenopathy Allergic/Immuno: No urticaria, No angioedema Neurological: No syncope, No focal symptoms, No weakness, No paresthesia, No headache, No seizure, No dizziness, No confusion, No vertigo, Other (TREMOR) ED Past Medical History - Past Medical History Obtainable: No Past Medical History: HTN, Dyslipidemia Psychiatricy History: Depression, Other (anxiety disorder; unspecified disorder ; impulse disorder) Family Medical History - Family Member Mother History Unknown: Yes ED Physical Exam - Physical Examination General/Constitutional: Awake, Well-developed, well-nourished, Alert, No distress, GCS 15, Non-toxic appearing, Ambulatory Head: Atraumatic Eyes: Lids, conjuctiva normal, PERRL, EOMI Skin: Nl inspection, No rash, No skin lesions, No ecchymosis, Well hydrated, No lymphadenopathy ENMT: External ears, nose nl Neck: Nontender, No nuchal rigidity, No stridor Respiratory: Nl effort/Exclusion, No Wheeze/Rhonchi/Rales Other Respiratory comments:: decreased breath sounds at bases. Cardio Vascular: RRR, No murmur, gallop, rubs, NL S1 S2 Other GI comments:: Distended. Nonspecific tenderness. : No CVA tenderness Neuro/Psych: Alert/oriented ED Labs/Radiology/EKG Results - Lab Results Results: Laboratory Tests 05/22/18 05/22/18 05/22/18 17:34 17:34 17:34 WBC 18.0 H Corrected WBC (auto) RBC 4.93 Hgb 14.1 Hct 42.7 MCV 86.5 MCH 28.5 MCHC Differential 33.0 RDW 12.8 Plt Count 423 H MPV 6.3 Add Manual Diff YES Neutrophils (Manual) 86 H Lymphocytes 10 L Monocytes 4 Sodium 119 L* Potassium 4.6 Chloride 85 L Carbon Dioxide 20.3 L Anion Gap 18.3 H BUN 9 Creatinine 0.5 L Est GFR ( Amer) TNP Est GFR (Non-Af Amer) TNP BUN/Creatinine Ratio 18.0 Glucose 249 H Whole Bld Lactic Acid Calcium 9.4 Phosphorus 3.2 Magnesium 1.6 L Total Bilirubin 0.4 AST 17 ALT 10 Alkaline Phosphatase 48 Total Protein 6.8 Albumin 3.8 Globulin 3.0 Albumin/Globulin Ratio 1.3 TSH 3.21 Valproic Acid 29.3 L 05/22/18 Unknown WBC Corrected WBC (auto) RBC Hgb Hct MCV MCH MCHC Differential RDW Plt Count MPV Add Manual Diff Neutrophils (Manual) Lymphocytes Monocytes Sodium Potassium Chloride Carbon Dioxide Anion Gap BUN Creatinine Est GFR ( Amer) Est GFR (Non-Af Amer) BUN/Creatinine Ratio Glucose Whole Bld Lactic Acid 0.94 Calcium Phosphorus Magnesium Total Bilirubin AST ALT Alkaline Phosphatase Total Protein Albumin Globulin Albumin/Globulin Ratio TSH Valproic Acid ED Assessment - Assessment General Assessment: CXR: R greater than L lower lobe pneumonia. CT scan: large retrocardiac hiatal hernia; large ventral hernia with surigcal changes. Multiple large bowel loops within subcutaneous tissues. Slight haziness of adjacent fat. Dilated small bowel. A degree of obstruction and strangulation cannot be ruled out. Correlate clinically. Cholelithiasis. Dr. Gregory called at 7:44 p.[address]. phone call to Dr. Gregory at 8:[address] Gregory asked me to call surgeon web application developer, Dr. Florez. I called and spoke to Dr. Florez who said that he would see the patient tonight. He asked for an NG tube to be placed. He agreed with NPO, Zosyn and IV fluids. Called Dr. Gregory back and informed him of above at 8:15 p.m. He will admit the patient. SIGN OUT TO DR. PEACOCK AT 8:18 P.M. ED Septic Shock - . Is Septic Shock (SBP<90, OR Lactate>4 mmol\L) present?: No - <6hrs of presentation: Vital Signs: Vital Signs - 8 hr 05/22/ 17:22 Temp 98.0 F HR 87 RR 23 BP 157/82 O2 Sat % 95 ED Reassessment (Disposition) - Reassessment Reassessment Condition:: Unchanged - Diagnosis Diagnosis:: Abdominal pain Bowel obstruction vs. strangulation Leukocytosis Urinary tract infection Dehydration Hyponatremia.
[2018-05-22 19:38] LABS: URINE SOURCE CLEAN C
[2018-05-22 19:45] LABS: URINE BILIRUBIN NEGATIVE (NEGATIVE); URINE BLOOD MODERATE (NEGATIVE); URINE GLUCOSE (UA) 100 mg/dL (NEGATIVE); URINE KETONE 40 mg/dL (NEGATIVE); URINE LEUKOCYTE ESTERASE SMALL (NEGATIVE); URINE MICROSCOPIC INDICATED? YES; URINE NITRATE POSITIVE (NEGATIVE); URINE PROTEIN TRACE mg/dL (NEGATIVE); URINE UROBILINOGEN 0.2 E.U./dL (0.2 - 1.0)
[2018-05-22 19:49] LABS: URINE CLARITY HAZY (CLEAR); URINE COLOR YELLOW
[2018-05-22 19:56] LABS: URINE RBC 0-2 /hpf (0-5)
[2018-05-22 19:57] LABS: URINE BACTERIA 2+ /hpf (NONE SEEN); URINE EPITHELIAL CELLS OCCASIONAL /lpf (FEW)
[2018-05-22] MEDS ORDERED: D5-0.9%NS 1,000 ML IV SCH (22:22)
[2018-05-22] MEDS: Morphine Sulfate 2 mg/mL 1mL Syr IVP PRN (22:38)
[2018-05-23] MEDS ORDERED: Piperacillin Sodium/Tazobact 3.375 gm Vial IV ONE (00:24)
[2018-05-23] MEDS ORDERED: Mag Sulfate 2gm/50mL Premix 2 GM/50 ML BAG IV ONE (03:49)
[2018-05-23 05:05] LABS: INR 1.04 (0.5-1.4); PROTHROMBIN TIME (TEST) 10.8 SECONDS (9.5-11.5)
[2018-05-23 05:09] LABS: ALB/GLOB RATIO 1.1 (1.0-1.8); ALBUMIN 3.4 gm/dL (3.7-5.3); ALKALINE PHOSPHATASE 43 U/L (34-104); ANION GAP 15.9 (7.0-16.0); BILIRUBIN,TOTAL 0.6 mg/dL (0.3-1.0); BUN - UREA NITROGEN 10 mg/dL (7-25); CALCIUM SERUM 8.9 mg/dL (8.6-10.3); CARBON DIOXIDE 20.1 mEq/L (21.0-31.0); CHLORIDE 89 mEq/L (98-107); CREATININE - SERUM 0.5 mg/dL (0.6-1.2); GLUCOSE 241 mg/dL (70-105); SGOT 20 U/L (13-39); SGPT/ALT 9 U/L (7-52); TOTAL PROTEIN,SERUM 6.4 gm/dL (6.0-8.3)
[2018-05-23 05:20] LABS: SODIUM SERUM 120 mEq/L (136-145)
[2018-05-23] MEDS: Morphine Sulfate 2 mg/mL 1mL Syr IVP PRN ×5 (05:24→22:46)
--- NOTE | 2018-05-23 05:28 | Consultation ---
DATE OF CONSULTATION: 05/22/2018 INFECTIOUS DISEASE CONSULTATION REFERRING PHYSICIAN: Jin Gregory M.D. and ____. REASON FOR CONSULTATION: Leukocytosis. HISTORY OF PRESENT ILLNESS: The patient is an 82-year-old female with past medical history of depression, hypertension, dyslipidemia, anxiety disorder, impulse disorder, brought into the ER for shakiness and abdominal pain. On initial evaluation, the patient's temperature was 98 degree Fahrenheit and WBC count was 18,000. As per the ER report, the patient had CT scan of the abdomen performed and it showed large retrocardiac hernia, large ventral hernia with the surgical changes, multiple large bowel loops with the subcutaneous tissue, slight haziness of the adjacent fat, dilated small bowel, degree of obstruction has ____, cannot be ruled out; and cholelithiasis. NG tube was placed. The patient was put on n.p.o. and Zosyn was started. ID consult was called for the leukocytosis with a WBC count of 18,000. PAST MEDICAL HISTORY: As mentioned above, depression, anxiety disorder, impulse disorder, hypertension, and dyslipidemia. ALLERGIES: THE PATIENT IS ALLERGIC TO CODEINE. SOCIAL HISTORY: The patient lives at [facility]. No history of smoking, alcohol, or drug use. FAMILY HISTORY: Not available. REVIEW OF SYSTEMS: The patient has no fever, no chills. The patient has abdominal pain. The patient is a poor historian, unable to give any appropriate history. PHYSICAL EXAMINATION: VITAL SIGNS: Current vital shows temperature is 98.2 degrees Fahrenheit, pulse is 98, respirations 12, and blood pressure is 159/78. GENERAL: The patient is comfortable, lying in the bed, not in acute distress. HEENT: Head is normocephalic, atraumatic. Oral cavity moist, pink tongue. Eyes: No pallor, no icterus. Pupils PERRLA, EOMI. NECK: Supple, no JVD, and no carotid bruit. Trachea midline. CHEST: Bilateral breath sounds. No crackles or wheezing. HEART: S1, S2 within normal limits. Regular rhythm. ABDOMEN: Soft, mildly distended. Bowel sounds present. EXTREMITIES: No cyanosis, no clubbing, and no edema. NEUROLOGICAL: She is alert and awake. LABORATORY DATA: Current lab shows WBC count is 18,000, hemoglobin is 14.1, hematocrit is 42.7, platelets are 423,000, and neutrophils 86%. Sodium is 119, potassium is 4.6, chloride is 85, bicarbonate is 20, BUN is 9, creatinine 0.5, and glucose is 249. Lactic acid is 0.94. Magnesium is 1.6. LFTs reviewed. Urinalysis showed hazy urine with positive nitrite, small leukoesterase, wbc's 6-10, and 2+ bacteria. IMPRESSION: 1. Urinary tract infection. 2. Ileus versus partial small-bowel obstruction. 3. Leukocytosis secondary to #1 and #2. 4. Hyponatremia. 5. History of psychosis. 6. History of hypertension. RECOMMENDATIONS: We will continue Zosyn. Monitor labs. Surgical consultation on the case. Depending on the culture report, we will define final antibiotic therapy. JOB# [id number]
[2018-05-23 07:40] LABS: % EOSINOPHILS 0.4 % (0.0-5.0); % LYMPHOCYTES 2.3 % (20.0-50.0); % MONOCYTES 8.3 % (2.0-10.0); HEMATOCRIT 44.3 % (41.0-60); HEMOGLOBIN 14.6 gm/dL (12-16); LYMPHOCYTE ABSOLUTE 0.2 Th/cmm (1.5-3.0); MEAN CELL VOLUME 85.8 fl (81-100); MEAN CORPUSCULAR HEMOGLOBIN 28.3 pg (27.0-31.0); MEAN PLATELET VOLUME 8.6 fl; MONOCYTE ABSOLUTE 0.8 Th/cmm (0.3-1.0); NEUTROPHILE ABSOLUTE 9.2 Th/cmm (1.8-8.0); RED BLOOD COUNT 5.16 Mil/cmm (3.80-5.20); RED CELL DISTRIBUTION WIDTH 12.6 % (11.5-20.0)
[2018-05-23 08:01] LABS: WHITE BLOOD COUNT 10.2 Th/cmm (4.8-10.8)
[2018-05-23 08:02] LABS: PLATELET COUNT 35 Th/cmm (150-400)
--- NOTE | 2018-05-23 09:35 | Diagnostic Imaging Report ---
CT scan abdomen and pelvis without intravenous contrast HISTORY: Pain Total DLP equals 692 CTDI equals 15.3 Axial sections were obtained from the xiphoid process down to the pubic symphysis. Limited sections through the lower chest demonstrate relatively large retrocardiac hiatal hernia with the majority of the stomach above the diaphragm. The liver exhibits a homogeneous parenchyma. No focal lesions. The spleen appears normal. Intraluminal calcifications noted in the gallbladder consistent with cholelithiasis. No focal abnormality seen in the region of the pancreas. Surgical changes along with a relatively large (7.9 cm defect noted within the anterior abdominal wall. Herniated loops of bowel seen within the subcutaneous tissues. Haziness of the bowel adjacent to the hernia site. These appear primarily related to colon. There are multiple loops of dilated small bowel within the abdomen. Changes associated with obstruction at the hernia site and possible strangulation cannot be excluded. Clinical correlation is needed. No focal lesions seen within the right kidney. Left renal cyst noted. No abnormal masses seen within the pelvis. No abnormal fluid collections. There is a mildly distended stool-filled rectum. Osteoporosis and severe degenerative changes noted throughout the spine. Compression involving the body of L1. IMPRESSION: 1. Large ventral hernia associated with multiple loops of bowel within the subcutaneous tissues predominantly related to the colon. Multiple dilated small bowel loops seen within the abdomen. Changes related to obstruction and possible strangulation at the hernia site cannot be excluded. Clinical correlation is needed. 2. Large retrocardiac hiatal hernia 3. Cholelithiasis 4. Severe degenerative changes throughout the spine with compression involving the body of L1 5. Atherosclerotic vascular changes
--- NOTE | 2018-05-23 09:51 | Diagnostic Imaging Report ---
KUB abdominal film HISTORY: Nasogastric tube placement, abdominal distention Compared with prior exam of 05/22/2018, nasogastric tube tip is seen at the level of the diaphragm. This should be advanced approximately 6.0 cm. There remains multiple loops of dilated small bowel. Findings are suggestive of a distal small bowel obstruction. No free intraperitoneal air. IMPRESSION: 1. Nasogastric tube tip at the level of the diaphragm. This should be advanced approximate 6.0 cm 2. Persistent dilated small bowel loops suggesting a distal small bowel obstruction.
--- NOTE | 2018-05-23 09:53 | Diagnostic Imaging Report ---
KUB abdominal film HISTORY: Nasogastric tube placement The exam demonstrates multiple loops of dilated small bowel. Obstruction cannot be excluded. A nasogastric tube is curled up above the level the diaphragm. Findings consistent with patient's CT documented hiatal hernia. IMPRESSION: 1. Nasogastric tube curled up at the level of the diaphragm consistent with patient's CT documented hiatal hernia. 2. Dilated small bowel loops suggesting obstruction.
--- NOTE | 2018-05-23 09:53 | Diagnostic Imaging Report ---
Portable chest x-ray HISTORY: Leukocytosis, cough The heart size is normal. No definite focal pulmonary parenchymal processes. No hilar or mediastinal abnormalities. IMPRESSION: 1. No definite acute pulmonary processes
[2018-05-23 10:22] LABS: % BASOPHILS 0.6 % (0.0-2.0); % EOSINOPHILS 0.3 % (0.0-5.0); % MONOCYTES 14.4 % (2.0-10.0); % NEUTROPHILS 81.7 % (40.0-80.0); BASOPHILE ABSOLUTE 0.1 Th/cumm (0-0.2); HEMOGLOBIN 13.8 gm/dL (12-16); LYMPHOCYTE ABSOLUTE 0.4 Th/cmm (1.5-3.0); MEAN CELL VOLUME 86.3 fl (81-100); MEAN CORPUSCULAR HEMOGLOBIN 28.4 pg (27.0-31.0); MEAN CORPUSCULAR HGB CONC 32.9 pg (28.0-36.0); MEAN PLATELET VOLUME 6.3 fl; MONOCYTE ABSOLUTE 1.8 Th/cmm (0.3-1.0); NEUTROPHILE ABSOLUTE 10.2 Th/cmm (1.8-8.0); RED BLOOD COUNT 4.86 Mil/cmm (3.80-5.20); RED CELL DISTRIBUTION WIDTH 12.6 % (11.5-20.0)
[2018-05-23 10:26] LABS: PLATELET COUNT 355 Th/cmm (150-400); WHITE BLOOD COUNT 12.5 Th/cmm (4.8-10.8)
[2018-05-23] MEDS ORDERED: Sodium Chloride 3% 200 ML IV ONE (11:00)
--- NOTE | 2018-05-23 11:12 | Consultation ---
DATE OF CONSULTATION: 05/23/2018 REQUESTING PHYSICIAN: Dr. Gregory REASON FOR CONSULTATION: Bowel obstruction. Thank you for asking me to see this patient in consultation. HISTORY OF PRESENT ILLNESS: This is an 82-year-old female with history of anxiety, hypertension, depression and advanced age, who presented to the ER yesterday for abdominal pain. The patient's white count was over 18,000 and she had a temperature of [address] scan, which showed a large ventral hernia with multiple bowel loops, mainly colon within subcutaneous tissue and haziness of the adjacent fat and dilated small bowel. The patient had an NG tube placed; however, the concern was that the NG tube was being trapped within a hiatal hernia segment. Initially, there was a return of fluid; however, this has slowed down significantly. The patient is currently very anxious and is trying to pull out her lines. Surgery was consulted overnight and is on the case. PAST MEDICAL HISTORY: As mentioned above, depression, anxiety, hypertension and dyslipidemia. ALLERGIES: CODEINE. SOCIAL HISTORY: Lives at [facility]. No tobacco, alcohol or drugs. FAMILY HISTORY: Noncontributory for GI disease. REVIEW OF SYSTEMS: Unable to obtain given the patient's current mental status. PHYSICAL EXAMINATION: VITAL SIGNS: Temperature 97.7, pulse of 74, respiratory rate of 16. She is currently satting 99% on 2 liters nasal cannula. GENERAL: She is anxious, mild distress. HEENT: Normocephalic, atraumatic. PERRL positive. LUNGS: Clear bilaterally. No wheezes, rales or rhonchi. HEART: Regular rate and rhythm. Normal S1, S2. ABDOMEN: Soft. Slight tenderness to palpation in the right lower and left lower quadrant. PSYCHIATRIC: Unable to assess. EXTREMITIES: Show no lower extremity edema. NEUROLOGIC: Grossly intact. LABORATORY AND DIAGNOSTIC DATA: Sodium of 120, potassium of 5.0, chloride of 89, CO2 of 20, BUN is 10, creatinine is 0.5, glucose is 241. INR of 1.04. White count of 10,000, platelet count of 35,000. KUB this morning shows persistent dilated small bowel loops suggesting a distal small-bowel obstruction. ASSESSMENT AND PLAN: This is an 82-year-old female with advanced age, currently a [place] resident who presents with shaking and abdominal pain. 1. Acute small-bowel obstruction. 2. Large ventral hernia with herniated bowels of colon. 3. Probable hiatal hernia. 4. Leukocytosis. 5. Abdominal pain. Agree with surgical recommendations and management for this patient. From GI standpoint, would recommend continuing with conservative care and NG tube to low intermittent suction to assist. The NG tube can be advanced about 4-5 cm further and repeat a KUB. Risks and benefits discussion per surgery if any surgical management is planned. Continue IV fluids, n.p.o. status and NG tube to low intermittent suction. We will continue to follow alongside with you. Thank you for allowing us to participate in this patient's care. Further recommendations will defer to surgery. JOB# [id number]
[2018-05-23] MEDS ORDERED: Albuterol/Ipratropium Neb 3 ML AERS HHN ONE (11:56)
[2018-05-23] MEDS: INSULIN ASPART SLIDING SCALE 100 UNITS/ML UNIT SUBQ SCH ×2 (11:58→18:29)
[2018-05-23] MEDS: Albuterol/Ipratropium Neb 3 ML AERS HHN SCH ×2 (12:02→18:51)
--- NOTE | 2018-05-23 12:18 | Diagnostic Imaging Report ---
Exam: CT examination of chest. HISTORY: Shortness of breath. Total DLP equals 318 CTDI equals 11.4 Findings: Multiple contiguous thin section of the chest were obtained from thoracic outlet to the upper abdomen without administration intravenous contrast material therefore the study is limited. The study demonstrates a normal appearance of right vessels of the neck. Adenopathy is difficult to appreciated due to lack of contrast material. Mediastinal structures midline no abnormal adenopathy is noted. There is evidence of bilateral pneumonia with superimposed effusions. The visualized bony thorax demonstrate no evidence for lytic or blastic changes. Upper abdomen is intact. Evidence for a hernia. The gallbladder is significantly distended clinical correlation recommended. Pancreas poorly visualized. NG tube is noted in the stomach. IMPRESSION: Limited examination without contrast material. Bilateral pneumonia superimposed effusions. Hiatal hernia.
--- NOTE | 2018-05-23 12:28 | History & Physical ---
ADMIT DATE: PATIENT IDENTIFICATION: An 82-year-old female. CHIEF COMPLAINT: Sent to Emergency Room for evaluation of shaking and sweating profusely. HISTORY OF PRESENT ILLNESS: An 82-year-old resident of [facility], has a diagnosis of diabetes mellitus, hypertension, hyperlipidemia, psychotic disorder, dementia, osteoporosis and history of tardive dyskinesia, brought into the Emergency Room from [facility] after the patient was noted that the patient was shaking and shivering and noted that the patient was on Risperdal and that Risperdal was weaned off and according to the patient's son and nursing staff that the patient's symptoms are related to her withdrawing of her Risperdal. The patient was sent to Emergency Room where the patient was seen by Emergency Room MD. Workup did reveal the patient had an incarcerated bowel obstruction. The patient was advised to be admitted in ICU. The patient has underlying medical problem and current conditions limit the significant medical history from the patient. PAST MEDICAL HISTORY: Remarkable for; 1. Diabetes. 2. Hypertension. 3. Hyperlipidemia. 4. Dementia. 5. DJD. 6. Osteoporosis. 7. Psychotic disorder. 8. Tardive dyskinesia. MEDICATIONS AT HOME: The patient is taking multiple medications, which has been reviewed and reconciled. ALLERGIES: The patient is allergic to codeine, though the patient is taking Hector without any difficulty. SOCIAL HISTORY: The patient resides in a [facility]. No documented smoking cigarette or any alcohol use. FAMILY MEDICAL HISTORY: Unavailable. REVIEW OF SYSTEMS: Unable to get meaningful history from the patient due to current medical condition. PHYSICAL EXAMINATION: GENERAL: An 82-year-old, alert, awake, lying in the bed, follows simple commands: VITAL SIGNS: Temperature 97.7, pulse is 76, respiratory rate 18, and blood pressure 133/56. HEENT: Remarkable for nasogastric tube noted. Otherwise, extraocular muscles are intact. Normocephalic and atraumatic. Pupils reactive to light. Tongue was pink and coated. NECK: Supple, no JVD, no hepatojugular reflux. No lymphadenopathy, thyromegaly or carotid bruit. HEART: Both heart sounds are regular. No S3. No S4. Grade 2/6 systolic murmur noted. CHEST AND LUNGS: Equal in expansion with expiratory wheezing. ABDOMEN: Soft. Palpable ventral hernia noted. Well-healed surgical scar noted. No guarding. No rigidity. Bowel sounds are sluggishly present. EXTREMITIES: No edema. No cyanosis. Peripheral pulses are +1. No calf tenderness. NEUROLOGIC: Alert, awake, follows simple commands. AVAILABLE DIAGNOSTIC DATA: On arrival to Emergency Room, white count of 18,000, hemoglobin 14.1, platelet count of 423, 86% neutrophils. Sodium 119, potassium 4.6, chloride 85, CO2 20.3, BUN and creatinine is 9 and 0.5, anion gap of 18.3, glucose of 249, magnesium of 1.6. Urinalysis remarkable for moderate blood, ketones positive, glucose positive, nitrite positive, leuk esterase small, WBC 6-10, and bacteria was +2. Chest x-ray performed in the Emergency Room on 05/22/2018 remarkable for no definite acute cardiopulmonary process noted. CT scan of the abdomen and pelvis performed in the Emergency Room, which revealed the patient has a large ventral hernia associated with multiple loop of bowels within the subcutaneous tissue, predominantly related to the colon; multiple dilated small bowel loops seen within the abdomen; large retrocardiac hernia; cholelithiasis; severe DJD throughout the spine compression involving the body of L1 and atherosclerotic changes noted. X-rays of the KUB was also done on 05/22/2018, remarkable for nasogastric tube curl up at the level of diaphragm consistent with the patient's CT documented hiatal hernia, dilated small bowel loop suggesting obstruction. CLINICAL IMPRESSIONS: 1. Acute large bowel obstruction with strangulation. 2. Hyponatremia, euvolemic, suspect secondary to syndrome of inappropriate antidiuretic hormone and possibly of volume depletion. 3. Hypomagnesemia. 4. Diabetes mellitus. 5. Urinary tract infection. 6. Anion gap acidosis. 7. Degenerative joint disease. 8. Osteoporosis. 9. Psychotic disorder. 10. Dementia. PLAN: The patient is admitted to Intensive Care Unit. Surgical consult from Dr. Florez has been requested. Nasogastric tube has been inserted. Broad-spectrum IV antibiotic Zosyn has been started. We will get GI evaluation as well. The patient will be seen by Infectious Disease in the view of urinary tract infection and large bowel obstruction with possibilities of impending sepsis. The patient will have blood cultures x 2 if not done in the Emergency Room. As far as the hyponatremia is concerned, the patient has received enough IV hydration in the form of D5 normal saline and her sodium is 120 this morning, we will give her 3% sodium chloride drip 200 mL per protocol for now. Afterwards, put the patient on maintenance IV fluid as well. Hyponatremia workup will be checked by checking serum for sodium, urine for sodium as well as a serum and urine osmolality. The patient will have uric acid level be checked as well. There was a concern raised about the possibility of pneumonia. We will get the CT scan of the chest in case the patient will go for surgical intervention. The patient will have nebulizer treatment for now and will do pulmonary toilet. Follow up on electrolytes and follow up on [employer] consultant's recommendation will be done as well. As far as the diabetes is concerned, we will put the patient on sliding scale insulin for now and we will hold all her oral hypoglycemic agents. The patient will have appropriate home medicine reconciliation as well. The patient's overall prognosis is guarded in the view of her advanced age and multiple comorbid medical conditions. We will talk to the patient's son, who is power of state attorney about treatment plan as well. I have personally talked to Dr. Florez about the patient's treatment plan. According to him, no surgical intervention needed at this time. The patient will require surgery once the patient's cardiopulmonary status is well stabilized. I will get the baseline EKG done as well since the patient's EKG on admission has revealed artifact and limits the interpretation. Care plan has been discussed with patient's assigned nurse as well. JOB# [id number]
[2018-05-23] MEDS: D5-0.9%NS 1,000 ML IV SCH (19:30)
--- NOTE | 2018-05-23 19:31 | History & Physical ---
ADMIT DATE: 05/23/2018 PULMONARY CONSULTATION REASON FOR CONSULTATION: Pneumonia. HISTORY OF PRESENT ILLNESS: This is an 82-year-old female who lives in a local convalescent home and the patient was basically brought in up here because of possibly bowel issue requiring possible surgery, but the patient was found to have a pneumonia and also persistent sweating, etc. Hence, I was asked to see this patient for further care and necessary treatment. The patient is awake, has quite obese and tremulous upper extremity. She says she cannot breathe. She complains of chest discomfort, but otherwise unremarkable and does not recall of fever prior to coming to the hospital, though very difficult history to get from the patient. PAST MEDICAL HISTORY: History of diabetes mellitus, hypertension, dyslipoproteinemia, psychotropic illness, psychiatric illness, osteoporosis with chronic tardive dyskinesia, the patient has been taking multiple psychotropic medications, and dementia. ALLERGIES: POSSIBLY CODEINE, though the patient has been taking narcotics in the past. SOCIAL HISTORY: Smoking, the patient denies. PHYSICAL EXAMINATION: GENERAL: This is an elderly looking female, awake, tremulous, not in any acute distress. VITAL SIGNS: The patient's recorded temperature is 97.2, blood pressure 126/48, saturation is 96. NECK: Veins not visualized. CHEST: Shows diminished air entry with ____ mostly on the right side. HEART: Regular. ABDOMEN: Slightly distended. EXTREMITIES: Shows no peripheral edema, no cyanosis, or clubbing. LABORATORY DATA: The patient's pertinent laboratory studies, CT of the chest shows bilateral pneumonia with small effusion with hiatal hernia. Initial chest x-ray shows no definite acute pulmonary process. The patient's other laboratory studies white count is about 12.5, hemoglobin 13.8, neutrophils 81. Sodium is 120 and BUN is 10. Urinalysis shows positive for urine nitrites with 2+ urine bacteria and valproic acid is 89. IMPRESSION: 1. Probably have pneumonia. 2. Question congestive heart failure. 3. Dilutional hyponatremia. 4. Recurrent bowel obstruction or adhesions. 5. Underlying history of psychiatric illness. PLAN AND SUGGESTIONS: We will go ahead and continue current treatment and management. We will give the patient aggressive respiratory care and broad-spectrum antibiotic. We will repeat the patient's chest x-ray as well as aggressive respiratory care, etc. and see how she does and go from there. [facility]# [id number]
[2018-05-23 21:13] VITALS: BP 159/78
[2018-05-24] MEDS: Morphine Sulfate 2 mg/mL 1mL Syr IVP PRN ×3 (05:13→16:55)
[2018-05-24] MEDS: INSULIN ASPART SLIDING SCALE 100 UNITS/ML UNIT SUBQ SCH ×4 (06:00→17:44)
[2018-05-24] MEDS: Albuterol/Ipratropium Neb 3 ML AERS HHN SCH ×4 (06:44→19:28)
[2018-05-24] MEDS: Budesonide 0.5 Mg/2 mL Ud HHN SCH ×2 (06:44→19:28)
[2018-05-24 07:29] LABS: HEMOGLOBIN 13.1 gm/dL (12-16); MEAN CELL VOLUME 85.4 fl (81-100); MEAN CORPUSCULAR HEMOGLOBIN 27.9 pg (27.0-31.0); MEAN CORPUSCULAR HGB CONC 32.7 pg (28.0-36.0); MEAN PLATELET VOLUME 6.6 fl; PLATELET COUNT 381 Th/cmm (150-400); RED BLOOD COUNT 4.69 Mil/cmm (3.80-5.20); RED CELL DISTRIBUTION WIDTH 12.6 % (11.5-20.0)
[2018-05-24 07:36] LABS: WHITE BLOOD COUNT 7.6 Th/cmm (4.8-10.8)
[2018-05-24 07:43] LABS: ALB/GLOB RATIO 1.4 (1.0-1.8); ALBUMIN 3.3 gm/dL (3.7-5.3); BILIRUBIN,DIRECT 0.14 mg/dL (0.0-0.2); BILIRUBIN,TOTAL 0.4 mg/dL (0.3-1.0); TOTAL PROTEIN,SERUM 5.6 gm/dL (6.0-8.3)
[2018-05-24 07:46] LABS: ALB/GLOB RATIO 1.2 (1.0-1.8); ALBUMIN 3.3 gm/dL (3.7-5.3); ALKALINE PHOSPHATASE 40 U/L (34-104); ANION GAP 11.9 (7.0-16.0); BILIRUBIN,TOTAL 0.4 mg/dL (0.3-1.0); BUN - UREA NITROGEN 10 mg/dL (7-25); CALCIUM SERUM 8.9 mg/dL (8.6-10.3); CARBON DIOXIDE 24.4 mEq/L (21.0-31.0); CHLORIDE 97 mEq/L (98-107); CREATININE - SERUM 0.5 mg/dL (0.6-1.2); GLUCOSE 193 mg/dL (70-105); POTASSIUM SERUM 4.3 mEq/L (3.5-5.1); SGOT 13 U/L (13-39); SGPT/ALT 7 U/L (7-52); SODIUM SERUM 129 mEq/L (136-145)
[2018-05-24 08:00] LABS: NEUTROPHILS 68 % (40-80)
[2018-05-24 08:01] LABS: BAND NEUTROPHILE 3 % (0-10); EOSINOPHIL 2 % (0-5); LYMPHOCYTE 10 % (20-50); MONOCYTE 17 % (2-10); PLATELET ESTIMATE ADEQUATE (NORMAL)
--- NOTE | 2018-05-24 08:36 | Diagnostic Imaging Report ---
Portable chest x-ray HISTORY: Cough The heart size appears somewhat generous. Allowing for poor inspiration, no acute focal pulmonary processes are seen. No hilar or mediastinal abnormalities. The nasogastric tube is noted with the tip extending below the diaphragm. IMPRESSION: 1. No acute focal bony processes 2. Generous overall heart size 3. Nasogastric tube extending below the diaphragm.
[2018-05-24 10:05] LABS: pH 7.36 (7.35-7.45)
--- NOTE | 2018-05-24 12:08 | GI Progress Note ---
Subjective - Review of Systems Service Date: 05/24/18 Events since last encounter: Pt seen with her son yared at bedside, she feels abdominal pain has improved somewhat Objective - Results Result Diagrams: 05/24/18 07:05 05/24/18 07:05 Recent Labs: Laboratory Last Values WBC 7.6 Th/cmm (4.8-10.8) D 05/24/18 07:05 Corrected WBC (auto) Th/cmm (4.8-10.8) 05/22/18 17:34 RBC 4.69 Mil/cmm (3.80-5.20) 05/24/18 07:05 Hgb 13.1 gm/dL (12-16) 05/24/18 07:05 Hct 40.0 % (41.0-60) L 05/24/18 07:05 MCV 85.4 fl (81-100) 05/24/18 07:05 MCH 27.9 pg (27.0-31.0) 05/24/18 07:05 MCHC Differential 32.7 pg (28.0-36.0) 05/24/18 07:05 RDW 12.6 % (11.5-20.0) 05/24/18 07:05 Plt Count 381 Th/cmm (150-400) 05/24/18 07:05 MPV 6.6 fl 05/24/18 07:05 Add Manual Diff YES 05/24/18 07:05 Neutrophils % 81.7 % (40.0-80.0) H 05/23/18 09:55 Band Neutrophils % 3 % (0-10) 05/24/18 07:05 Lymphocytes % 3.0 % (20.0-50.0) L 05/23/18 09:55 Monocytes % 14.4 % (2.0-10.0) H 05/23/18 09:55 Eosinophils % 0.3 % (0.0-5.0) 05/23/18 09:55 Basophils % 0.6 % (0.0-2.0) 05/23/18 09:55 Neutrophils (Manual) 68 % (40-80) 05/24/18 07:05 Lymphocytes 10 % (20-50) L 05/24/18 07:05 Monocytes 17 % (2-10) H 05/24/18 07:05 Eosinophils 2 % (0-5) 05/24/18 07:05 Platelet Estimate ADEQUATE (NORMAL) 05/24/18 07:05 PT 10.8 SECONDS (9.5-11.5) 05/23/18 04:30 INR 1.04 (0.5-1.4) 05/23/18 04:30 PTT (Actin FS) 27.4 SECONDS (26.0-38.0) 05/23/18 04:30 Specimen Source Arterial 05/24/18 09:55 Sample Site LB 05/24/18 09:55 pH 7.36 (7.35-7.45) 05/24/18 09:55 pCO2 46.0 mmHg (35.0-45.0) H 05/24/18 09:55 pO2 85.0 mmHg (80.0-100.0) 05/24/18 09:55 HCO3 25.1 mEq/L (20.0-26.0) 05/24/18 09:55 Base Excess 0.2 mEq/L (-3.0-3.0) 05/24/18 09:55 O2 Saturation 96.0 % (92.0-100.0) 05/24/18 09:55 Inspired O2 28 05/24/18 09:55 Critical Value PW 05/24/18 09:55 Sodium 129 mEq/L (136-145) L 05/24/18 07:05 Potassium 4.3 mEq/L (3.5-5.1) 05/24/18 07:05 Chloride 97 mEq/L (98-107) L 05/24/18 07:05 Carbon Dioxide 24.4 mEq/L (21.0-31.0) 05/24/18 07:05 Anion Gap 11.9 (7.0-16.0) 05/24/18 07:05 BUN 10 mg/dL (7-25) 05/24/18 07:05 Creatinine 0.5 mg/dL (0.6-1.2) L 05/24/18 07:05 Est GFR ( Amer) TNP 05/24/18 07:05 Est GFR (Non-Af Amer) TNP 05/24/18 07:05 BUN/Creatinine Ratio 20.0 05/24/18 07:05 Glucose 193 mg/dL (70-105) H 05/24/18 07:05 POC Glucose 179 MG/DL (70 - 105) H 05/24/18 11:40 Whole Bld Lactic Acid 0.94 mmol/L (0.60-1.99) 05/22/18 Unknown Calcium 8.9 mg/dL (8.6-10.3) 05/24/18 07:05 Phosphorus 3.2 mg/dL (2.5-5.0) 05/22/18 17:34 Magnesium 1.6 mg/dL (1.9-2.7) L 05/24/18 07:05 Total Bilirubin 0.4 mg/dL (0.3-1.0) 05/24/18 07:05 Direct Bilirubin 0.14 mg/dL (0.0-0.2) 05/24/18 07:05 AST 13 U/L (13-39) 05/24/18 07:05 ALT 7 U/L (7-52) 05/24/18 07:05 Alkaline Phosphatase 40 U/L (34-104) 05/24/18 07:05 Ammonia 40 umol/L (16-53) 05/24/18 07:05 Total Protein 6.0 gm/dL (6.0-8.3) 05/24/18 07:05 Albumin 3.3 gm/dL (3.7-5.3) L 05/24/18 07:05 Globulin 2.7 gm/dL 05/24/18 07:05 Albumin/Globulin Ratio 1.2 (1.0-1.8) 05/24/18 07:05 TSH 3.21 uIU/ml (0.34-5.60) 05/22/18 17:34 Urine Source CLEAN C 05/22/18 18:55 Urine Color YELLOW 05/22/18 18:55 Urine Clarity HAZY (CLEAR) 05/22/18 18:55 Urine pH 6.0 (4.6 - 8.0) 05/22/18 18:55 Ur Specific [place] >= 1.030 (1.005-1.030) 05/22/18 18:55 Urine Protein TRACE mg/dL (NEGATIVE) 05/22/18 18:55 Urine Glucose (UA) 100 mg/dL (NEGATIVE) H 05/22/18 18:55 Urine Ketones 40 mg/dL (NEGATIVE) H 05/22/18 18:55 Urine Blood MODERATE (NEGATIVE) H 05/22/18 18:55 Urine Nitrate POSITIVE (NEGATIVE) H 05/22/18 18:55 Urine Bilirubin NEGATIVE (NEGATIVE) 05/22/18 18:55 Urine Urobilinogen 0.2 E.U./dL (0.2 - 1.0) 05/22/18 18:55 Ur Leukocyte Esterase SMALL (NEGATIVE) H 05/22/18 18:55 Urine RBC 0-2 /hpf (0-5) 05/22/18 18:55 Urine WBC 6-10 /hpf (0-5) H 05/22/18 18:55 Ur Epithelial Cells OCCASIONAL /lpf (FEW) 05/22/18 18:55 Urine Bacteria 2+ /hpf (NONE SEEN) H 05/22/18 18:55 Ur Random Sodium 14 mmol/L 05/24/18 06:00 Valproic Acid 29.3 ug/mL (50.0-100.0) L 05/22/18 17:34 - Physical Exam Vitals and I&O: Vital Signs Temp 97.6 F 05/24/18 08:00 Pulse 105 05/24/18 11:11 Resp 17 05/24/18 11:11 BP 120/66 05/24/18 11:00 Pulse Ox 100 05/24/18 11:11 Intake & Output 05/23/18 05/24/18 05/24/18 18:59 06:59 18:59 Intake Total 100 1085 300 Output Total 530 Balance 100 555 300 Weight (lbs) 77.111 kg Intake: Intake, IV Amount 100 1085 300 D5-0.9%Ns 1,000 ml @ 70 735 mls/hr IV .[id number] [facility] Rx #:[id number] Piperacillin Sodium/ 100 100 50 Tazobact 3.375 gm In Sodium Chloride 0.9% 50 ml @ 100 mls/hr IV Q6H [facility] Rx#:[id number] Vancomycin HCl 1 gm In 250 Sodium Chloride 0.9% 250 ml @ 165 mls/hr IV Q12H [facility] Rx#:[id number] Oral 0 Output: Gastric Drainage 20 Urine 510 Other: # Bowel Movements 0 Weight Source Bedscale Active Medications: Current Medications Acetaminophen (Tylenol 650mg Supp) 650 mg RC Q4H PRN PRN Reason: PAIN OR TEMP >101 Stop: 07/21/18 22:25 Albuterol/Ipratropium (Duoneb Neb) 3 ml HHN [id number] [facility] Stop: 07/22/18 18:59 Last Admin: 05/24/18 11:11 Dose: 3 ml Bisacodyl (Dulcolax 10 Mg Supp) 10 mg RC DAILY [facility] Stop: 07/22/18 12:14 Last Admin: 05/24/18 09:35 Dose: 10 mg Budesonide (Pulmicort) 0.5 mg HHN BIDRT [facility] Stop: 07/22/18 18:59 Last Admin: 05/24/18 06:44 Dose: 0.5 mg Divalproex Sodium (Depakote Dr) 250 mg PO BID [facility]; Protocol Stop: 07/22/18 16:59 Last Admin: 05/24/18 09:19 Dose: Not Given Gabapentin (Neurontin) 300 mg PO TID [facility] Stop: 07/22/18 13:59 Last Admin: 05/24/18 09:19 Dose: Not Given Piperacillin Sod/Tazobactam (Sod 3.375 gm/ Sodium Chloride) 50 mls @ 100 mls/ hr IV Q6H [facility] Stop: 07/22/18 01:59 Last Infusion: 05/24/18 09:43 Dose: Infused Dextrose/Sodium Chloride (D5-0.9%Ns) 1,000 mls @ 70 mls/hr IV .[id number] [facility] Stop: 07/22/18 19:14 Last Infusion: 05/24/18 06:00 Dose: 70 mls/hr Vancomycin HCl 1 gm/ Sodium (Chloride) 250 mls @ 165 mls/hr IV Q12H [facility] Stop: 07/23/18 08:59 Last Infusion: 05/24/18 11:32 Dose: Infused Insulin Aspart (Novolog Insulin Sliding Scale) 0 units SUBQ Q6HR [facility]; Protocol Stop: 07/22/18 11:59 Last Admin: 05/24/18 11:46 Dose: 2 units Ketorolac Tromethamine (Toradol) 15 mg IVP Q6HR PRN PRN Reason: moderate pain Stop: 07/23/18 09:31 Last Admin: 05/24/18 10:01 Dose: 15 mg Lorazepam (Ativan) 0.5 mg IVP Q6HR PRN; Protocol PRN Reason: Agitation Stop: 07/23/18 11:49 Miscellaneous (Vancomycin Iv Per Pharmacy) 1 ea MC PRN PRN PRN Reason: PROTOCOL Stop: 07/22/18 18:56 Morphine Sulfate (Morphine) 2 mg IVP Q3H PRN PRN Reason: Pain (Severe) Stop: 07/21/18 22:22 Last Admin: 05/24/18 08:38 Dose: 2 mg Ondansetron HCl (Zofran) 4 mg IV Q6H PRN PRN Reason: Nausea / Vomiting Stop: 07/21/18 22:24 Last Admin: 05/24/18 03:17 Dose: 4 mg General: Alert, Oriented x3 HEENT: Atraumatic, PERRLA, EOMI Neck: Supple Cardiovascular: Regular rate, Normal S1, Normal S2 Lungs: Clear to auscultation, Normal air movement Abdomen: Bowel sounds, Tender, Distended - Procedures Procedures: Procedures Procedure Code Date EMERGENCY DEPT VISIT 82123 02/03/00 IMMOBILIZ/WOUND ATTN NEC 93.59 08/01/01 Assessment/Plan - Problem List Patient Problems: All Active Problems Bowel obstruction (Acute) K56.609 Bowel obstruction (Acute) K56.609 PERIPHERAL TREMORS WITH DIAPHORESIS (Acute) - Assessment Assessment: 1. Bowel obstruction 2. Herniated bowel 3. Probable hiatal hernia 4. Pneumonia -Currently with respiratory failure from pneumonia -Probable hiatal hernia with coiling of NG tube -Will defer management to surgery at this time -Staff has tried to readjust NG tube but keeps getting coiled in the stomach, not a lot of output and wondering if patient can tolerate PO on her own -When she is more stable will likely need an EGD -f/u ordered imaging studies Will follow
--- NOTE | 2018-05-24 15:01 | Progress Notes ---
DATE: 05/24/2018 PATIENT IDENTIFICATION: An 82-year-old female. SUBJECTIVE: The patient is seen and examined. The patient is more alert, awake, very anxious for now. The patient's son is at bedside. The patient denies any new complaint. PHYSICAL EXAMINATION: VITAL SIGNS: Temperature 98.6, pulse 74, respiratory rate 18, blood pressure 130/80. HEENT: No facial asymmetry. Nasogastric tube noted. NECK: Supple, no JVD. HEART: Both heart sounds are regular. CHEST: Lung equal in expansion, no expiratory wheezing. ABDOMEN: Soft. No guarding, no rigidity. Palpable ventral hernia noted. Bowel sounds are sluggishly present. EXTREMITIES: No edema. LABORATORY DATA: Electrolytes and CT scan of the chest reviewed. CLINICAL IMPRESSION: 1. Bilateral pneumonia. 2. Hiatal hernia by CT chest. 3. Incisional ventral hernia. 4. Bowel obstruction, resolving. 5. Diabetes. 6. Hypertension. 7. Degenerative joint disease. 8. Psychotic disorder. 9. Electrolyte imbalance. PLAN: 1. Replace potassium. 2. IV antibiotic. 3. Oxygen. 4. Pulmonary toilet. 5. Nebulizer treatment. 6. General nursing care. 7. Diabetes management. 8. Follow lab. 9. Follow consults' recommendation. 10. Care plan reviewed and discussed with staff. JOB# [id number]
[2018-05-24] MEDS: D5-0.9%NS 1,000 ML IV SCH (19:32)
--- NOTE | 2018-05-24 19:37 | Consultation ---
DATE OF CONSULTATION: 05/22/2018 PULMONARY PROGRESS NOTE PROBLEM LIST: 1. Bowel obstruction. 2. Question pneumonia, I doubt it. 3. Small airway disorder in the form of asthmatic bronchitis. SYMPTOMS: Nil. The patient wants to eat and drink food. No specific new respiratory symptoms, so when she yells or shouts she has had some wheezing noise. No respiratory distress, etc. PHYSICAL EXAMINATION: VITAL SIGNS: T-max 97.2, blood pressure 100/90, saturation is 98. NECK: Veins not visualized. CHEST: Shows diminished air entry with occasional rhonchi. HEART: Regular. ABDOMEN: Soft, nontender. LABORATORY DATA: White count is 7.6, hemoglobin is 13.1. ABG shows a compensated respiratory acidemia and electrolyte shows sodium 129 and sugar is slightly on the higher side. Chest x-ray is clear to me with slightly heavy bronchovascular right infrahilar region. IMPRESSION AND PLAN: The patient is clinically respiratory mcqueen is stable for intended abdominal surgery discussed with the nursing staff, etc. and go from there. JOB# [id number]
--- NOTE | 2018-05-24 23:59 | Infectious Disease Prog Note ---
Infectious Disease Subjective - Review of Systems Service Date: 05/24/18 Subjective: There is no new change, no fever. Infectious Disease Objective - Results Result Diagrams: 05/26/18 04:00 05/26/18 04:00 Recent Labs: Laboratory Last Values WBC 7.6 Th/cmm (4.8-10.8) D 05/24/18 07:05 Corrected WBC (auto) Th/cmm (4.8-10.8) 05/22/18 17:34 RBC 4.69 Mil/cmm (3.80-5.20) 05/24/18 07:05 Hgb 13.1 gm/dL (12-16) 05/24/18 07:05 Hct 40.0 % (41.0-60) L 05/24/18 07:05 MCV 85.4 fl (81-100) 05/24/18 07:05 MCH 27.9 pg (27.0-31.0) 05/24/18 07:05 MCHC Differential 32.7 pg (28.0-36.0) 05/24/18 07:05 RDW 12.6 % (11.5-20.0) 05/24/18 07:05 Plt Count 381 Th/cmm (150-400) 05/24/18 07:05 MPV 6.6 fl 05/24/18 07:05 Add Manual Diff YES 05/24/18 07:05 Neutrophils % 81.7 % (40.0-80.0) H 05/23/18 09:55 Band Neutrophils % 3 % (0-10) 05/24/18 07:05 Lymphocytes % 3.0 % (20.0-50.0) L 05/23/18 09:55 Monocytes % 14.4 % (2.0-10.0) H 05/23/18 09:55 Eosinophils % 0.3 % (0.0-5.0) 05/23/18 09:55 Basophils % 0.6 % (0.0-2.0) 05/23/18 09:55 Neutrophils (Manual) 68 % (40-80) 05/24/18 07:05 Lymphocytes 10 % (20-50) L 05/24/18 07:05 Monocytes 17 % (2-10) H 05/24/18 07:05 Eosinophils 2 % (0-5) 05/24/18 07:05 Platelet Estimate ADEQUATE (NORMAL) 05/24/18 07:05 PT 10.8 SECONDS (9.5-11.5) 05/23/18 04:30 INR 1.04 (0.5-1.4) 05/23/18 04:30 PTT (Actin FS) 27.4 SECONDS (26.0-38.0) 05/23/18 04:30 Specimen Source Arterial 05/24/18 09:55 Sample Site LB 05/24/18 09:55 pH 7.36 (7.35-7.45) 05/24/18 09:55 pCO2 46.0 mmHg (35.0-45.0) H 05/24/18 09:55 pO2 85.0 mmHg (80.0-100.0) 05/24/18 09:55 HCO3 25.1 mEq/L (20.0-26.0) 05/24/18 09:55 Base Excess 0.2 mEq/L (-3.0-3.0) 05/24/18 09:55 O2 Saturation 96.0 % (92.0-100.0) 05/24/18 09:55 Inspired O2 28 05/24/18 09:55 Critical Value PW 05/24/18 09:55 Sodium 129 mEq/L (136-145) L 05/24/18 07:05 Potassium 4.3 mEq/L (3.5-5.1) 05/24/18 07:05 Chloride 97 mEq/L (98-107) L 05/24/18 07:05 Carbon Dioxide 24.4 mEq/L (21.0-31.0) 05/24/18 07:05 Anion Gap 11.9 (7.0-16.0) 05/24/18 07:05 BUN 10 mg/dL (7-25) 05/24/18 07:05 Creatinine 0.5 mg/dL (0.6-1.2) L 05/24/18 07:05 Est GFR ( Amer) TNP 05/24/18 07:05 Est GFR (Non-Af Amer) TNP 05/24/18 07:05 BUN/Creatinine Ratio 20.0 05/24/18 07:05 Glucose 193 mg/dL (70-105) H 05/24/18 07:05 POC Glucose 170 MG/DL (70 - 105) H 05/24/18 17:42 Whole Bld Lactic Acid 0.94 mmol/L (0.60-1.99) 05/22/18 Unknown Calcium 8.9 mg/dL (8.6-10.3) 05/24/18 07:05 Phosphorus 3.2 mg/dL (2.5-5.0) 05/22/18 17:34 Magnesium 1.6 mg/dL (1.9-2.7) L 05/24/18 07:05 Total Bilirubin 0.4 mg/dL (0.3-1.0) 05/24/18 07:05 Direct Bilirubin 0.14 mg/dL (0.0-0.2) 05/24/18 07:05 AST 13 U/L (13-39) 05/24/18 07:05 ALT 7 U/L (7-52) 05/24/18 07:05 Alkaline Phosphatase 40 U/L (34-104) 05/24/18 07:05 Ammonia 40 umol/L (16-53) 05/24/18 07:05 Total Protein 6.0 gm/dL (6.0-8.3) 05/24/18 07:05 Albumin 3.3 gm/dL (3.7-5.3) L 05/24/18 07:05 Globulin 2.7 gm/dL 05/24/18 07:05 Albumin/Globulin Ratio 1.2 (1.0-1.8) 05/24/18 07:05 TSH 3.21 uIU/ml (0.34-5.60) 05/22/18 17:34 Urine Source CLEAN C 05/22/18 18:55 Urine Color YELLOW 05/22/18 18:55 Urine Clarity HAZY (CLEAR) 05/22/18 18:55 Urine pH 6.0 (4.6 - 8.0) 05/22/18 18:55 Ur Specific [place] >= 1.030 (1.005-1.030) 05/22/18 18:55 Urine Protein TRACE mg/dL (NEGATIVE) 05/22/18 18:55 Urine Glucose (UA) 100 mg/dL (NEGATIVE) H 05/22/18 18:55 Urine Ketones 40 mg/dL (NEGATIVE) H 05/22/18 18:55 Urine Blood MODERATE (NEGATIVE) H 05/22/18 18:55 Urine Nitrate POSITIVE (NEGATIVE) H 05/22/18 18:55 Urine Bilirubin NEGATIVE (NEGATIVE) 05/22/18 18:55 Urine Urobilinogen 0.2 E.U./dL (0.2 - 1.0) 05/22/18 18:55 Ur Leukocyte Esterase SMALL (NEGATIVE) H 05/22/18 18:55 Urine RBC 0-2 /hpf (0-5) 05/22/18 18:55 Urine WBC 6-10 /hpf (0-5) H 05/22/18 18:55 Ur Epithelial Cells OCCASIONAL /lpf (FEW) 05/22/18 18:55 Urine Bacteria 2+ /hpf (NONE SEEN) H 05/22/18 18:55 Ur Random Sodium 14 mmol/L 05/24/18 06:00 Valproic Acid 29.3 ug/mL (50.0-100.0) L 05/22/18 17:34 - Physical Exam Vitals and I&O: Vital Signs Temp 97.8 F 05/24/18 20:00 Pulse 96 05/24/18 22:00 Resp 14 05/24/18 22:00 BP 114/71 05/24/18 22:00 Pulse Ox 98 05/24/18 22:00 Intake & Output 05/24/18 05/24/18 05/25/18 06:59 18:59 06:59 Intake Total 1085 615 300 Output Total 530 250 Balance 555 365 300 Weight (lbs) 77.111 kg 77.111 kg Intake: Intake, IV Amount 1085 615 300 D5-0.9%Ns 1,000 ml @ 70 735 265 mls/hr IV .[id number] [facility] Rx #:[id number] Piperacillin Sodium/ 100 100 50 Tazobact 3.375 gm In Sodium Chloride 0.9% 50 ml @ 100 mls/hr IV Q6H [facility] Rx#:[id number] Vancomycin HCl 1 gm In 250 250 Sodium Chloride 0.9% 250 ml @ 165 mls/hr IV Q12H [facility] Rx#:[id number] Oral 0 Output: Gastric Drainage 20 Urine 510 250 Other: # Bowel Movements 0 Stool Characteristics Liquid Brown Weight Source Bedscale Bedscale Active Medications: Current Medications Acetaminophen (Tylenol 650mg Supp) 650 mg RC Q4H PRN PRN Reason: PAIN OR TEMP >101 Stop: 07/21/18 22:25 Albuterol/Ipratropium (Duoneb Neb) 3 ml HHN [id number] [facility] Stop: 07/22/18 18:59 Last Admin: 05/24/18 19:28 Dose: 3 ml Bisacodyl (Dulcolax 10 Mg Supp) 10 mg RC DAILY [facility] Stop: 07/22/18 12:14 Last Admin: 05/24/18 09:35 Dose: 10 mg Budesonide (Pulmicort) 0.5 mg HHN BIDRT [facility] Stop: 07/22/18 18:59 Last Admin: 05/24/18 19:28 Dose: 0.5 mg Divalproex Sodium (Depakote Dr) 250 mg PO BID [facility]; Protocol Stop: 07/22/18 16:59 Last Admin: 05/24/18 18:23 Dose: Not Given Gabapentin (Neurontin) 300 mg PO TID [facility] Stop: 07/22/18 13:59 Last Admin: 05/24/18 21:15 Dose: Not Given Piperacillin Sod/Tazobactam (Sod 3.375 gm/ Sodium Chloride) 50 mls @ 100 mls/ hr IV Q6H [facility] Stop: 07/22/18 01:59 Last Infusion: 05/24/18 20:00 Dose: Infused Dextrose/Sodium Chloride (D5-0.9%Ns) 1,000 mls @ 70 mls/hr IV .[id number] [facility] Stop: 07/22/18 19:14 Last Admin: 05/24/18 19:32 Dose: 70 mls/hr Vancomycin HCl 1 gm/ Sodium (Chloride) 250 mls @ 165 mls/hr IV Q12H [facility] Stop: 07/23/18 08:59 Last Infusion: 05/24/18 22:00 Dose: Infused Insulin Aspart (Novolog Insulin Sliding Scale) 0 units SUBQ Q6HR [facility]; Protocol Stop: 07/22/18 11:59 Last Admin: 05/24/18 17:44 Dose: 2 units Ketorolac Tromethamine (Toradol) 15 mg IVP Q6HR PRN PRN Reason: moderate pain Stop: 07/23/18 09:31 Last Admin: 05/24/18 10:01 Dose: 15 mg Lorazepam (Ativan) 0.5 mg IVP Q6HR PRN; Protocol PRN Reason: Agitation Stop: 07/23/18 11:49 Last Admin: 05/24/18 20:29 Dose: 0.5 mg Miscellaneous (Vancomycin Iv Per Pharmacy) 1 ea MC PRN PRN PRN Reason: PROTOCOL Stop: 07/22/18 18:56 Morphine Sulfate (Morphine) 2 mg IVP Q3H PRN PRN Reason: Pain (Severe) Stop: 07/21/18 22:22 Last Admin: 05/24/18 16:55 Dose: 2 mg Ondansetron HCl (Zofran) 4 mg IV Q6H PRN PRN Reason: Nausea / Vomiting Stop: 07/21/18 22:24 Last Admin: 05/24/18 03:17 Dose: 4 mg General: no acute distress, well developed, well nourished HEENT: atraumatic, normocephalic, PERRLA, EOMI Neck: supple, no thyromegaly Cardiovascular: S1S2, regular Lungs: clear to auscultation bilaterally, clear to percussion Abdomen: soft, no tender, no distended Extremities: no cyanosis, no clubbing, no edema Neurological: awake, alert Skin: intact - Procedures Procedures: Procedures Procedure Code Date EMERGENCY DEPT VISIT 52613 02/03/00 IMMOBILIZ/WOUND ATTN NEC 93.59 08/01/01 Infectious Disease Assmt/Plan - Problem List Patient Problems: All Active Problems Bowel obstruction (Acute) K56.609 Bowel obstruction (Acute) K56.609 PERIPHERAL TREMORS WITH DIAPHORESIS (Acute) - Assessment Assessment: 1. Urinary tract infection. 2. Ileus versus small bowel obstruction. 3. Leukocytosis secondary to urinary tract infection and ileus versus small bowel obstruction. 4. Hyponatremia, rule out syndrome of inappropriate antidiuretic hormone. 5. History of psychosis. 6. History of hypertension. - Plan Plan: [place]. Nutritional Asmnt/Malnutr-PDOC - Dietary Evaluation Malnutrition Findings (Please click <Entered> for more info): Nutritional Asmnt/Malnutrition Start: 05/23/18 16: 41 Text: Status: Complete Freq: Protocol: Document 05/23/18 16:41 KD (Rec: 05/23/18 16:54 KD [id number]) Nutritional Asmnt/Malnutrition Patient General Information Nutritional Screening High Risk Consult Diagnosis bowel obstruction Pertinent Medical Hx/Surgical Hx HTN, dyslipidemia, depression, anxiety, impulse disorder Subjective Information Consult received for elevated glucose 249. pt admitted for abdominal pain. Pt seen resting in bed at time of visit. Pt is NPO, NGT on suction. Current Diet Order/ Nutrition Support NPO Pertinent Medications novolot, piperacillin, zofran, piperacillin, nacl Pertinent Labs 05/23 Na 120, Cl 89, Cr 0.5, glucsose 241, alb 3.4 Nutritional Hx/Data Height 1.63 m Height (Calculated Centimeters) 162.6 Current Weight (lbs) 77.111 kg Weight (Calculated Kilograms) 77.1 Weight (Calculated Grams) 60133.7 [place] Body Weight 120 Body Mass Index (BMI) 29.2 Weight Status Overweight GI Symptoms GI Symptoms None Last BM not indicated Difficult in: None Skin Integrity/Comment: ecchymosis Current %PO Negligible < 25% Estimated Nutritional Goals BEE in Kcals: Using Current wt Calories/Kcals/Kg 23-27 Kcals Calculated Protein: Using Current wt Protein g/k.8-1 Protein Calculated 62-77 Fluid: ml [id number] Nutritional Problem 2. Problem Problem altered nutrition related labs Etiology hyperglycemia Signs/Symptoms: glucose 241-249 1. Problem Problem inadequate food intake Etiology GI dysfunction Signs/Symptoms: pt on NPO Malnutrition Alert Is there a minimum of two criteria No selected? Query Text:Check all the applicable criteria. A minimum of two criteria are recommended for diagnosis of either severe or non-severe malnutrition. Malnutrition Related to Morbid Obesity Malnutrition related to morbid obesity No Intervention/Recommendation Comments 1. Monitor NPO status. Recommend clear liquid diet with Ensure Clear TID if diet advanced when medically appropriate 2. Monitor GI, wt, labs and skin integrity 3. F/U as high risk in 2-3 days Expected Outcomes/Goals Expected Outcomes/Goals 1. oral diet initiated in 2-3 days 2. Wt stability, skin to remain intact, labs to approach WNL.
[2018-05-25] MEDS: INSULIN ASPART SLIDING SCALE 100 UNITS/ML UNIT SUBQ SCH ×4 (00:34→18:12)
[2018-05-25] MEDS: Morphine Sulfate 2 mg/mL 1mL Syr IVP PRN ×5 (01:04→22:29)
--- NOTE | 2018-05-25 02:54 | Progress Notes ---
DATE: 05/23/2018 INFECTIOUS DISEASE PROGRESS NOTE SUBJECTIVE: The patient is lying in the bed, not in acute distress, no fever, no chills, remains the same. OBJECTIVE: VITAL SIGNS: Shows temperature is 97.7 degrees Fahrenheit, pulse 73, respiration is 18, blood pressure 124/50. GENERAL: The patient is comfortable lying in bed, not in acute distress. HEENT: Head is normocephalic, atraumatic. Oral cavity moist, pink tongue. NECK: Supple, no JVD, no carotid bruit. Trachea in midline. CHEST: Bilateral breath sounds. No crackles. No wheezing. ABDOMEN: Soft, distended. Bowel sounds present. Tenderness present. Ventral hernia present. EXTREMITIES: No cyanosis, no clubbing, no edema. Pulses are palpable. NEUROLOGIC: Alert and awake, follows the command. LABORATORY DATA: Current lab shows WBC count is 12,500, hemoglobin 13.8, hematocrit 42, platelets of 355,000, neutrophils 81.7%. Sodium is 120, potassium 5, chloride 89, bicarbonate is 20, BUN is 10, creatinine 0.5, and glucose is 241. ASSESSMENT: 1. Urinary tract infection. 2. Ileus versus small bowel obstruction. 3. Leukocytosis secondary to urinary tract infection and ileus versus small bowel obstruction. 4. Hyponatremia, rule out syndrome of inappropriate antidiuretic hormone. 5. History of psychosis. 6. History of hypertension. RECOMMENDATION: Continue Zosyn at this time. JOB# [id number]
[2018-05-25 06:41] LABS: CORRECTED WBC 3.1 Th/cmm (4.8-10.8); HEMATOCRIT 36.6 % (41.0-60); HEMOGLOBIN 12.2 gm/dL (12-16); MEAN CELL VOLUME 86.2 fl (81-100); MEAN CORPUSCULAR HEMOGLOBIN 28.6 pg (27.0-31.0); RED BLOOD COUNT 4.25 Mil/cmm (3.80-5.20); WHITE BLOOD COUNT 3.5 Th/cmm (4.8-10.8)
[2018-05-25 06:42] LABS: MEAN CORPUSCULAR HGB CONC 33.2 pg (28.0-36.0); MEAN PLATELET VOLUME 6.7 fl; PLATELET COUNT 364 Th/cmm (150-400); RED CELL DISTRIBUTION WIDTH 12.7 % (11.5-20.0)
[2018-05-25 06:53] LABS: BAND NEUTROPHILE 1 % (0-10); NEUTROPHILS 64 % (40-80)
[2018-05-25 06:54] LABS: LYMPHOCYTE 25 % (20-50); MONOCYTE 10 % (2-10)
[2018-05-25] MEDS: Albuterol/Ipratropium Neb 3 ML AERS HHN SCH ×4 (07:01→18:53)
[2018-05-25] MEDS: Budesonide 0.5 Mg/2 mL Ud HHN SCH ×2 (07:01→18:53)
--- NOTE | 2018-05-25 07:51 | Diagnostic Imaging Report ---
CHEST X-RAY: AP view INDICATION: NG tube placement COMPARISON: CT chest on 05/23/2018 FINDINGS: NG tube is seen curled with tip above the diaphragm within the moderate to large retrocardiac hiatal hernia. Small left effusion is noted. No focal consolidation. Increased bibasilar lung markings are noted. Heart size is normal. Distended loops of bowel are seen along the visualized abdomen. IMPRESSION: NG tube curled with tip above the diaphragm within a moderate to large retrocardiac hiatal hernia. Consider repositioning if indicated. Increased bibasilar lung markings which may be due to atelectasis versus less likely infiltrate Distended loops of bowel. Findings may be due to a distal obstructive process or ileus, follow-up recommended.
[2018-05-25 08:08] LABS: ALB/GLOB RATIO 1.3 (1.0-1.8); ALBUMIN 3.3 gm/dL (3.7-5.3); ALKALINE PHOSPHATASE 35 U/L (34-104); ANION GAP 13.2 (7.0-16.0); BILIRUBIN,TOTAL 0.4 mg/dL (0.3-1.0); BUN - UREA NITROGEN 13 mg/dL (7-25); CALCIUM SERUM 8.7 mg/dL (8.6-10.3); CARBON DIOXIDE 23.9 mEq/L (21.0-31.0); CHLORIDE 100 mEq/L (98-107); CREATININE - SERUM 0.5 mg/dL (0.6-1.2); GLUCOSE 176 mg/dL (70-105); MAGNESIUM 1.7 mg/dL (1.9-2.7); POTASSIUM SERUM 4.1 mEq/L (3.5-5.1); SGOT 12 U/L (13-39); SGPT/ALT 8 U/L (7-52); SODIUM SERUM 133 mEq/L (136-145); TOTAL PROTEIN,SERUM 5.9 gm/dL (6.0-8.3)
[2018-05-25] MEDS ORDERED: Diatrizoate Meglumine/Diatri 30 mL Sol PO ONE (08:32)
--- NOTE | 2018-05-25 12:11 | GI Progress Note ---
Subjective - Review of Systems Service Date: 05/25/18 Events since last encounter: Pulled NG tube, now its been reinserted; small bowel series pending today Objective - Results Result Diagrams: 05/25/18 04:00 05/25/18 04:00 Recent Labs: Laboratory Last Values WBC 3.5 Th/cmm (4.8-10.8) L D 05/25/18 04:00 Corrected WBC (auto) 3.1 Th/cmm (4.8-10.8) L 05/25/18 04:00 RBC 4.25 Mil/cmm (3.80-5.20) 05/25/18 04:00 Hgb 12.2 gm/dL (12-16) 05/25/18 04:00 Hct 36.6 % (41.0-60) L 05/25/18 04:00 MCV 86.2 fl (81-100) 05/25/18 04:00 MCH 28.6 pg (27.0-31.0) 05/25/18 04:00 MCHC Differential 33.2 pg (28.0-36.0) 05/25/18 04:00 RDW 12.7 % (11.5-20.0) 05/25/18 04:00 Plt Count 364 Th/cmm (150-400) 05/25/18 04:00 MPV 6.7 fl 05/25/18 04:00 Add Manual Diff YES 05/25/18 04:00 Neutrophils % 81.7 % (40.0-80.0) H 05/23/18 09:55 Band Neutrophils % 1 % (0-10) 05/25/18 04:00 Lymphocytes % 3.0 % (20.0-50.0) L 05/23/18 09:55 Monocytes % 14.4 % (2.0-10.0) H 05/23/18 09:55 Eosinophils % 0.3 % (0.0-5.0) 05/23/18 09:55 Basophils % 0.6 % (0.0-2.0) 05/23/18 09:55 Neutrophils (Manual) 64 % (40-80) 05/25/18 04:00 Lymphocytes 25 % (20-50) 05/25/18 04:00 Monocytes 10 % (2-10) 05/25/18 04:00 Eosinophils 2 % (0-5) 05/24/18 07:05 Platelet Estimate ADEQUATE (NORMAL) 05/24/18 07:05 PT 10.8 SECONDS (9.5-11.5) 05/23/18 04:30 INR 1.04 (0.5-1.4) 05/23/18 04:30 PTT (Actin FS) 27.4 SECONDS (26.0-38.0) 05/23/18 04:30 Specimen Source Arterial 05/24/18 09:55 Sample Site LB 05/24/18 09:55 pH 7.36 (7.35-7.45) 05/24/18 09:55 pCO2 46.0 mmHg (35.0-45.0) H 05/24/18 09:55 pO2 85.0 mmHg (80.0-100.0) 05/24/18 09:55 HCO3 25.1 mEq/L (20.0-26.0) 05/24/18 09:55 Base Excess 0.2 mEq/L (-3.0-3.0) 05/24/18 09:55 O2 Saturation 96.0 % (92.0-100.0) 05/24/18 09:55 Inspired O2 28 05/24/18 09:55 Critical Value PW 05/24/18 09:55 Sodium 133 mEq/L (136-145) L 05/25/18 04:00 Potassium 4.1 mEq/L (3.5-5.1) 05/25/18 04:00 Chloride 100 mEq/L (98-107) 05/25/18 04:00 Carbon Dioxide 23.9 mEq/L (21.0-31.0) 05/25/18 04:00 Anion Gap 13.2 (7.0-16.0) 05/25/18 04:00 BUN 13 mg/dL (7-25) 05/25/18 04:00 Creatinine 0.5 mg/dL (0.6-1.2) L 05/25/18 04:00 Est GFR ( Amer) TNP 05/25/18 04:00 Est GFR (Non-Af Amer) TNP 05/25/18 04:00 BUN/Creatinine Ratio 26.0 05/25/18 04:00 Glucose 176 mg/dL (70-105) H 05/25/18 04:00 POC Glucose 180 MG/DL (70 - 105) H 05/25/18 06:20 Whole Bld Lactic Acid 0.94 mmol/L (0.60-1.99) 05/22/18 Unknown Calcium 8.7 mg/dL (8.6-10.3) 05/25/18 04:00 Phosphorus 3.2 mg/dL (2.5-5.0) 05/22/18 17:34 Magnesium 1.7 mg/dL (1.9-2.7) L 05/25/18 04:00 Total Bilirubin 0.4 mg/dL (0.3-1.0) 05/25/18 04:00 Direct Bilirubin 0.14 mg/dL (0.0-0.2) 05/24/18 07:05 AST 12 U/L (13-39) L 05/25/18 04:00 ALT 8 U/L (7-52) 05/25/18 04:00 Alkaline Phosphatase 35 U/L (34-104) 05/25/18 04:00 Ammonia 46 umol/L (16-53) 05/25/18 04:00 Total Protein 5.9 gm/dL (6.0-8.3) L 05/25/18 04:00 Albumin 3.3 gm/dL (3.7-5.3) L 05/25/18 04:00 Globulin 2.6 gm/dL 05/25/18 04:00 Albumin/Globulin Ratio 1.3 (1.0-1.8) 05/25/18 04:00 TSH 3.21 uIU/ml (0.34-5.60) 05/22/18 17:34 Urine Source CLEAN C 05/22/18 18:55 Urine Color YELLOW 05/22/18 18:55 Urine Clarity HAZY (CLEAR) 05/22/18 18:55 Urine pH 6.0 (4.6 - 8.0) 05/22/18 18:55 Ur Specific [place] >= 1.030 (1.005-1.030) 05/22/18 18:55 Urine Protein TRACE mg/dL (NEGATIVE) 05/22/18 18:55 Urine Glucose (UA) 100 mg/dL (NEGATIVE) H 05/22/18 18:55 Urine Ketones 40 mg/dL (NEGATIVE) H 05/22/18 18:55 Urine Blood MODERATE (NEGATIVE) H 05/22/18 18:55 Urine Nitrate POSITIVE (NEGATIVE) H 05/22/18 18:55 Urine Bilirubin NEGATIVE (NEGATIVE) 05/22/18 18:55 Urine Urobilinogen 0.2 E.U./dL (0.2 - 1.0) 05/22/18 18:55 Ur Leukocyte Esterase SMALL (NEGATIVE) H 05/22/18 18:55 Urine RBC 0-2 /hpf (0-5) 05/22/18 18:55 Urine WBC 6-10 /hpf (0-5) H 05/22/18 18:55 Ur Epithelial Cells OCCASIONAL /lpf (FEW) 05/22/18 18:55 Urine Bacteria 2+ /hpf (NONE SEEN) H 05/22/18 18:55 Ur Random Sodium 14 mmol/L 05/24/18 06:00 Vancomycin Trough 13.7 ug/mL (5-10) H 05/25/18 08:00 Valproic Acid 29.3 ug/mL (50.0-100.0) L 05/22/18 17:34 - Physical Exam Vitals and I&O: Vital Signs Temp 98.9 F 05/25/18 08:00 Pulse 104 05/25/18 11:24 Resp 13 05/25/18 11:24 BP 116/76 05/25/18 09:00 Pulse Ox 97 05/25/18 11:24 Intake & Output 05/24/18 05/25/18 05/25/18 18:59 06:59 18:59 Intake Total 615 350 300 Output Total 250 250 Balance 365 100 300 Weight (lbs) 77.111 kg 77.882 kg Intake: Intake, IV Amount 615 350 300 D5-0.9%Ns 1,000 ml @ 70 265 mls/hr IV .[id number] [facility] Rx #:[id number] Piperacillin Sodium/ 100 100 50 Tazobact 3.375 gm In Sodium Chloride 0.9% 50 ml @ 100 mls/hr IV Q6H [facility] Rx#:[id number] Vancomycin HCl 1 gm In 250 250 250 Sodium Chloride 0.9% 250 ml @ 165 mls/hr IV Q12H [facility] Rx#:[id number] Output: Urine 250 250 Other: # Bowel Movements 2 Stool Characteristics Soft Soft Formed Formed Brown Brown Weight Source Bedscale Bedscale Active Medications: Current Medications Acetaminophen (Tylenol 650mg Supp) 650 mg RC Q4H PRN PRN Reason: PAIN OR TEMP >101 Stop: 07/21/18 22:25 Albuterol/Ipratropium (Duoneb Neb) 3 ml HHN [id number] [facility] Stop: 07/22/18 18:59 Last Admin: 05/25/18 11:24 Dose: 3 ml Bisacodyl (Dulcolax 10 Mg Supp) 10 mg RC DAILY [facility] Stop: 07/22/18 12:14 Last Admin: 05/25/18 11:02 Dose: 10 mg Budesonide (Pulmicort) 0.5 mg HHN BIDRT [facility] Stop: 07/22/18 18:59 Last Admin: 05/25/18 07:01 Dose: 0.5 mg Divalproex Sodium (Depakote Dr) 250 mg PO BID [facility]; Protocol Stop: 07/22/18 16:59 Last Admin: 05/25/18 09:00 Dose: Not Given Gabapentin (Neurontin) 300 mg PO TID [facility] Stop: 07/22/18 13:59 Last Admin: 05/25/18 09:00 Dose: Not Given Piperacillin Sod/Tazobactam (Sod 3.375 gm/ Sodium Chloride) 50 mls @ 100 mls/ hr IV Q6H [facility] Stop: 07/22/18 01:59 Last Infusion: 05/25/18 08:45 Dose: Infused Dextrose/Sodium Chloride (D5-0.9%Ns) 1,000 mls @ 70 mls/hr IV .[id number] [facility] Stop: 07/22/18 19:14 Last Admin: 05/24/18 19:32 Dose: 70 mls/hr Vancomycin HCl 1 gm/ Sodium (Chloride) 250 mls @ 165 mls/hr IV Q12H [facility] Stop: 07/23/18 08:59 Last Infusion: 05/25/18 11:10 Dose: Infused Insulin Aspart (Novolog Insulin Sliding Scale) 0 units SUBQ Q6HR [facility]; Protocol Stop: 07/22/18 11:59 Last Admin: 05/25/18 06:23 Dose: 2 units Ketorolac Tromethamine (Toradol) 15 mg IVP Q6HR PRN PRN Reason: moderate pain Stop: 07/23/18 09:31 Last Admin: 05/25/18 11:11 Dose: 15 mg Lorazepam (Ativan) 0.5 mg IVP Q6HR PRN; Protocol PRN Reason: Agitation Stop: 07/23/18 11:49 Last Admin: 05/25/18 09:30 Dose: 0.5 mg Miscellaneous (Vancomycin Iv Per Pharmacy) 1 ea MC PRN PRN PRN Reason: PROTOCOL Stop: 07/22/18 18:56 Morphine Sulfate (Morphine) 2 mg IVP Q3H PRN PRN Reason: Pain (Severe) Stop: 07/21/18 22:22 Last Admin: 05/25/18 12:05 Dose: 2 mg Ondansetron HCl (Zofran) 4 mg IV Q6H PRN PRN Reason: Nausea / Vomiting Stop: 07/21/18 22:24 Last Admin: 05/25/18 11:11 Dose: 4 mg General: Alert, Oriented x3 HEENT: Atraumatic, PERRLA, EOMI Neck: Supple Cardiovascular: Regular rate, Normal S1, Normal S2 Lungs: Clear to auscultation, Normal air movement Abdomen: Bowel sounds, Tender, Distended - Procedures Procedures: Procedures Procedure Code Date EMERGENCY DEPT VISIT 25882 02/03/00 IMMOBILIZ/WOUND ATTN NEC 93.59 08/01/01 Assessment/Plan - Problem List Patient Problems: All Active Problems Bowel obstruction (Acute) K56.609 Bowel obstruction (Acute) K56.609 PERIPHERAL TREMORS WITH DIAPHORESIS (Acute) - Assessment Assessment: 1. Bowel obstruction 2. Herniated bowel 3. Probable hiatal hernia 4. Pneumonia -Currently with respiratory failure from pneumonia -Probable hiatal hernia with coiling of NG tube -Will defer management to surgery at this time -Small bowel series today -When she is more stable will likely need an EGD electively -f/u ordered imaging studies Will follow
[2018-05-25] MEDS ORDERED: Probiotic Screen MC PRN (14:15)
[2018-05-25] MEDS: D5-0.9%NS 1,000 ML IV SCH (14:58)
--- NOTE | 2018-05-25 19:35 | Progress Notes ---
DATE: 05/25/2018 PROBLEM LIST: 1. Shortness of breath, recurrent; anxiety. 2. Questionable pneumonitis, though I doubt it. 3. Possibly bowel obstruction, underlying tremors with psychiatric illness. SYMPTOMS: Nil. She wants to eat, quite tremulous, but no respiratory distress, etc. PHYSICAL EXAMINATION: VITAL SIGNS: Temperature is 98.6, heart rate is 104, respiration 14, saturation on 2 liters of 96%. ENT: Shows no acute new changes. CHEST: Shows diminished air entry. ABDOMEN: Slightly distended. LABORATORY DATA: The patient's white count is 3.5. Electrolytes: Sodium is 133, otherwise unremarkable. ASSESSMENT AND PLAN: The patient is clinically stable, respiratory stand point of view. PLANS AND SUGGESTIONS: Continue current respiratory care inhalation treatment, etc. and go from there. JOB# [id number]
[2018-05-26] MEDS: INSULIN ASPART SLIDING SCALE 100 UNITS/ML UNIT SUBQ SCH ×5 (00:03→23:37)
[2018-05-26] MEDS: Morphine Sulfate 2 mg/mL 1mL Syr IVP PRN ×3 (02:54→23:16)
[2018-05-26 04:35] LABS: ALB/GLOB RATIO 1.3 (1.0-1.8); ALBUMIN 3.2 gm/dL (3.7-5.3); ALKALINE PHOSPHATASE 34 U/L (34-104); ANION GAP 11.5 (7.0-16.0); BILIRUBIN,TOTAL 0.4 mg/dL (0.3-1.0); BUN - UREA NITROGEN 14 mg/dL (7-25); CARBON DIOXIDE 25.2 mEq/L (21.0-31.0); CHLORIDE 103 mEq/L (98-107); CREATININE - SERUM 0.5 mg/dL (0.6-1.2); GLUCOSE 180 mg/dL (70-105); POTASSIUM SERUM 3.7 mEq/L (3.5-5.1); SGOT 10 U/L (13-39); SGPT/ALT 8 U/L (7-52); SODIUM SERUM 136 mEq/L (136-145); TOTAL PROTEIN,SERUM 5.7 gm/dL (6.0-8.3)
[2018-05-26 04:40] LABS: RED BLOOD COUNT 4.31 Mil/cmm (3.80-5.20)
[2018-05-26 04:41] LABS: HEMATOCRIT 36.2 % (41.0-60); MEAN CORPUSCULAR HEMOGLOBIN 27.9 pg (27.0-31.0); MEAN CORPUSCULAR HGB CONC 33.2 pg (28.0-36.0); MEAN PLATELET VOLUME 6.2 fl; PLATELET COUNT 356 Th/cmm (150-400)
--- NOTE | 2018-05-26 05:48 | Progress Notes ---
DATE: 05/25/2018 SUBJECTIVE: The patient seen and examined. The patient just an upper GI done study report is currently pending. The patient is more alert and awake. The patient remained tachycardic. PHYSICAL EXAMINATION: VITAL SIGNS: Temperature 97.6, pulse is 106, respiratory rate is 18, blood pressure 146/65, O2 sat is 97%. HEENT: No facial asymmetry. Nasogastric tube noted. Tongue was pink and coated. NECK: Supple, no JVD. HEART: Regular. CHEST: Lung equal in expansion with expiratory wheezing throughout. ABDOMEN: Soft, palpable ventral hernia noted. Bowel sounds are present. EXTREMITIES: No edema. AVAILABLE DIAGNOSTIC DATA: White count of 3.5, hemoglobin of 12.2, platelet count of 364. BUN and creatinine is 13 and 0.5. Sodium 133, potassium 4.1, chloride 100, CO2 of 23.9, AST and ALT is 12 and 8. Vancomycin trough is 13.7. Albumin of 3.3. The patient had a chest x-ray done today, which revealed the patient had cardiomegaly with increased bibasilar lung marking consistent with atelectasis. CLINICAL IMPRESSION: 1. Bilateral pneumonia by CT chest. 2. Bowel obstruction with a spontaneous release has a bowel movement last night. 3. Hyponatremia, improving. 4. Diabetes mellitus. 5. Psychotic disorder. 6. Degenerative joint disease. 7. Dementia. 8. Hypertension. PLAN: 1. Transfer this patient to telemetry unit. 2. Oxygen. 3. Nebulizer treatment. 4. IV antibiotic. 5. General nursing care. 6. Pulmonary toilet. 7. Follow lab. 8. Follow consult recommendation. 9. Care plan reviewed and discussed with staff. JOB# [id number]
[2018-05-26 06:02] LABS: BAND NEUTROPHILE 2 % (0-10); LYMPHOCYTE 20 % (20-50); MONOCYTE 10 % (2-10); NEUTROPHILS 68 % (40-80)
[2018-05-26] MEDS: Budesonide 0.5 Mg/2 mL Ud HHN SCH ×2 (07:06→19:13)
[2018-05-26] MEDS: Albuterol/Ipratropium Neb 3 ML AERS HHN SCH ×4 (07:07→19:13)
[2018-05-26] MEDS: D5-0.9%NS 1,000 ML IV SCH (07:56)
--- NOTE | 2018-05-26 08:28 | Diagnostic Imaging Report ---
Small bowel follow-through HISTORY: Obstruction Water-soluble contrast passed freely from the stomach into the small bowel. The exam demonstrates generalized dilatation of the small bowel with delayed transit. 0314 hours, no appreciable contrast was seen in the colon. There is retention of normal small bowel mucosal folds. IMPRESSION: 1. Findings consistent with small bowel obstruction.
[2018-05-26] MEDS: Lactobacillus Rhamnosus GG 15 Billion CFU CAP.SPRINK PO SCH (08:49)
[2018-05-26] MEDS ORDERED: Mag Sulfate 2gm/50mL Premix 2 GM/50 ML BAG IV ONE ×2 (09:52→10:56)
--- NOTE | 2018-05-26 13:14 | Infectious Disease Prog Note ---
Infectious Disease Subjective - Review of Systems Service Date: 05/26/18 Subjective: There is no new change, no fever. Infectious Disease Objective - Results Result Diagrams: 05/26/18 04:00 05/26/18 04:00 Recent Labs: Laboratory Last Values WBC 3.0 Th/cmm (4.8-10.8) L 05/26/18 04:00 Corrected WBC (auto) 3.0 Th/cmm (4.8-10.8) L 05/26/18 04:00 RBC 4.31 Mil/cmm (3.80-5.20) 05/26/18 04:00 Hgb 12.0 gm/dL (12-16) 05/26/18 04:00 Hct 36.2 % (41.0-60) L 05/26/18 04:00 MCV 84.0 fl (81-100) 05/26/18 04:00 MCH 27.9 pg (27.0-31.0) 05/26/18 04:00 MCHC Differential 33.2 pg (28.0-36.0) 05/26/18 04:00 RDW 13.0 % (11.5-20.0) 05/26/18 04:00 Plt Count 356 Th/cmm (150-400) 05/26/18 04:00 MPV 6.2 fl 05/26/18 04:00 Add Manual Diff YES 05/26/18 04:00 Neutrophils % CUSTOMER SUPPORT ANALYST 05/26/18 04:00 Band Neutrophils % 2 % (0-10) 05/26/18 04:00 Lymphocytes % CUSTOMER SUPPORT ANALYST 05/26/18 04:00 Monocytes % CUSTOMER SUPPORT ANALYST 05/26/18 04:00 Eosinophils % CUSTOMER SUPPORT ANALYST 05/26/18 04:00 Basophils % Not Reportable 05/26/18 04:00 Neutrophils (Manual) 68 % (40-80) 05/26/18 04:00 Lymphocytes 20 % (20-50) 05/26/18 04:00 Monocytes 10 % (2-10) 05/26/18 04:00 Eosinophils 2 % (0-5) 05/24/18 07:05 Platelet Estimate ADEQUATE (NORMAL) 05/24/18 07:05 PT 10.8 SECONDS (9.5-11.5) 05/23/18 04:30 INR 1.04 (0.5-1.4) 05/23/18 04:30 PTT (Actin FS) 27.4 SECONDS (26.0-38.0) 05/23/18 04:30 Specimen Source Arterial 05/24/18 09:55 Sample Site LB 05/24/18 09:55 pH 7.36 (7.35-7.45) 05/24/18 09:55 pCO2 46.0 mmHg (35.0-45.0) H 05/24/18 09:55 pO2 85.0 mmHg (80.0-100.0) 05/24/18 09:55 HCO3 25.1 mEq/L (20.0-26.0) 05/24/18 09:55 Base Excess 0.2 mEq/L (-3.0-3.0) 05/24/18 09:55 O2 Saturation 96.0 % (92.0-100.0) 05/24/18 09:55 Inspired O2 28 05/24/18 09:55 Critical Value PW 05/24/18 09:55 Sodium 136 mEq/L (136-145) 05/26/18 04:00 Potassium 3.7 mEq/L (3.5-5.1) 05/26/18 04:00 Chloride 103 mEq/L (98-107) 05/26/18 04:00 Carbon Dioxide 25.2 mEq/L (21.0-31.0) 05/26/18 04:00 Anion Gap 11.5 (7.0-16.0) 05/26/18 04:00 BUN 14 mg/dL (7-25) 05/26/18 04:00 Creatinine 0.5 mg/dL (0.6-1.2) L 05/26/18 04:00 Est GFR ( Amer) TNP 05/26/18 04:00 Est GFR (Non-Af Amer) TNP 05/26/18 04:00 BUN/Creatinine Ratio 28.0 05/26/18 04:00 Glucose 180 mg/dL (70-105) H 05/26/18 04:00 POC Glucose 191 MG/DL (70 - 105) H 05/26/18 06:40 Plasma/Ser Osmolality 259 mOsmol/kg (280-301) L 05/23/18 09:55 Whole Bld Lactic Acid 0.94 mmol/L (0.60-1.99) 05/22/18 Unknown Calcium 9.0 mg/dL (8.6-10.3) 05/26/18 04:00 Phosphorus 3.2 mg/dL (2.5-5.0) 05/22/18 17:34 Magnesium 1.7 mg/dL (1.9-2.7) L 05/26/18 04:00 Total Bilirubin 0.4 mg/dL (0.3-1.0) 05/26/18 04:00 Direct Bilirubin 0.14 mg/dL (0.0-0.2) 05/24/18 07:05 AST 10 U/L (13-39) L 05/26/18 04:00 ALT 8 U/L (7-52) 05/26/18 04:00 Alkaline Phosphatase 34 U/L (34-104) 05/26/18 04:00 Ammonia 46 umol/L (16-53) 05/25/18 04:00 Total Protein 5.7 gm/dL (6.0-8.3) L 05/26/18 04:00 Albumin 3.2 gm/dL (3.7-5.3) L 05/26/18 04:00 Globulin 2.5 gm/dL 05/26/18 04:00 Albumin/Globulin Ratio 1.3 (1.0-1.8) 05/26/18 04:00 TSH 3.21 uIU/ml (0.34-5.60) 05/22/18 17:34 Urine Source CLEAN C 05/22/18 18:55 Urine Color YELLOW 05/22/18 18:55 Urine Clarity HAZY (CLEAR) 05/22/18 18:55 Urine pH 6.0 (4.6 - 8.0) 05/22/18 18:55 Ur Specific [place] >= 1.030 (1.005-1.030) 05/22/18 18:55 Urine Protein TRACE mg/dL (NEGATIVE) 05/22/18 18:55 Urine Glucose (UA) 100 mg/dL (NEGATIVE) H 05/22/18 18:55 Urine Ketones 40 mg/dL (NEGATIVE) H 05/22/18 18:55 Urine Blood MODERATE (NEGATIVE) H 05/22/18 18:55 Urine Nitrate POSITIVE (NEGATIVE) H 05/22/18 18:55 Urine Bilirubin NEGATIVE (NEGATIVE) 05/22/18 18:55 Urine Urobilinogen 0.2 E.U./dL (0.2 - 1.0) 05/22/18 18:55 Ur Leukocyte Esterase SMALL (NEGATIVE) H 05/22/18 18:55 Urine RBC 0-2 /hpf (0-5) 12 18:55 Urine WBC 6-10 /hpf (0-5) H 05/22/18 18:55 Ur Epithelial Cells OCCASIONAL /lpf (FEW) 05/22/18 18:55 Urine Bacteria 2+ /hpf (NONE SEEN) H 05/22/18 18:55 Urine Osmolality 583 mOsmol/kg 05/24/18 06:00 Ur Random Sodium 14 mmol/L 05/24/18 06:00 Vancomycin Trough 13.7 ug/mL (5-10) H 05/25/18 08:00 Valproic Acid 29.3 ug/mL (50.0-100.0) L 05/22/18 17:34 - Physical Exam Vitals and I&O: Vital Signs Temp 98.7 F 05/26/18 04:00 Pulse 101 05/26/18 07:42 Resp 18 05/26/18 07:42 BP 152/80 05/26/18 04:00 Pulse Ox 97 05/26/18 07:42 Intake & Output 05/25/18 05/26/18 05/26/18 18:59 06:59 18:59 Intake Total 1350 1450 300 Output Total 985 Balance 1350 465 300 Weight (lbs) 84.595 kg Intake: Intake, IV Amount 1350 1350 300 D5-0.9%Ns 1,000 ml @ 70 1000 1000 mls/hr IV .[id number] [facility] Rx #:[id number] Piperacillin Sodium/ 100 100 50 Tazobact 3.375 gm In Sodium Chloride 0.9% 50 ml @ 100 mls/hr IV Q6H [facility] Rx#:[id number] Vancomycin HCl 1 gm In 250 250 250 Sodium Chloride 0.9% 250 ml @ 165 mls/hr IV Q12H [facility] Rx#:[id number] Other 100 Output: Gastric Drainage 600 Urine 385 Other: # Bowel Movements 0 Stool Characteristics Soft Soft Formed Formed Brown Brown Weight Source Bedscale Active Medications: Current Medications Acetaminophen (Tylenol 650mg Supp) 650 mg RC Q4H PRN PRN Reason: PAIN OR TEMP >101 Stop: 07/21/18 22:25 Albuterol/Ipratropium (Duoneb Neb) 3 ml HHN [id number] [facility] Stop: 07/22/18 18:59 Last Admin: 05/26/18 11:24 Dose: 3 ml Bisacodyl (Dulcolax 10 Mg Supp) 10 mg RC DAILY [facility] Stop: 07/22/18 12:14 Last Admin: 05/26/18 08:00 Dose: 10 mg Budesonide (Pulmicort) 0.5 mg HHN BIDRT [facility] Stop: 07/22/18 18:59 Last Admin: 05/26/18 07:06 Dose: 0.5 mg Divalproex Sodium (Depakote Dr) 250 mg PO BID [facility]; Protocol Stop: 07/22/18 16:59 Last Admin: 05/26/18 08:49 Dose: Not Given Gabapentin (Neurontin) 300 mg PO TID [facility] Stop: 07/22/18 13:59 Last Admin: 05/26/18 08:49 Dose: Not Given Piperacillin Sod/Tazobactam (Sod 3.375 gm/ Sodium Chloride) 50 mls @ 100 mls/ hr IV Q6H [facility] Stop: 07/22/18 01:59 Last Infusion: 05/26/18 08:30 Dose: Infused Dextrose/Sodium Chloride (D5-0.9%Ns) 1,000 mls @ 70 mls/hr IV .[id number] [facility] Stop: 07/22/18 19:14 Last Admin: 05/26/18 07:56 Dose: 70 mls/hr Vancomycin HCl 1 gm/ Sodium (Chloride) 250 mls @ 165 mls/hr IV Q12H [facility] Stop: 07/23/18 08:59 Last Infusion: 05/26/18 10:45 Dose: Infused Insulin Aspart (Novolog Insulin Sliding Scale) 0 units SUBQ Q6HR [facility]; Protocol Stop: 07/22/18 11:59 Last Admin: 05/26/18 12:24 Dose: 2 units Ketorolac Tromethamine (Toradol) 15 mg IVP Q6HR PRN PRN Reason: moderate pain Stop: 07/23/18 09:31 Last Admin: 05/26/18 11:31 Dose: 15 mg Lactobacillus Rhamnosus (Culturelle 15b) 1 each PO DAILY [facility] Stop: 07/25/18 08:59 Last Admin: 05/26/18 08:49 Dose: Not Given Lorazepam (Ativan) 0.5 mg IVP Q6HR PRN; Protocol PRN Reason: Agitation Stop: 07/23/18 11:49 Last Admin: 05/25/18 14:57 Dose: 0.5 mg Miscellaneous (Vancomycin Iv Per Pharmacy) 1 ea PRN PRN PRN Reason: PROTOCOL Stop: 07/22/18 18:56 Miscellaneous (Probiotic Screen) 1 ea PRN PRN PRN Reason: PROTOCOL Stop: 07/24/18 14:14 Morphine Sulfate (Morphine) 2 mg IVP Q3H PRN PRN Reason: Pain (Severe) Stop: 07/21/18 22:22 Last Admin: 05/26/18 02:54 Dose: 2 mg Ondansetron HCl (Zofran) 4 mg IV Q6H PRN PRN Reason: Nausea / Vomiting Stop: 07/21/18 22:24 Last Admin: 05/25/18 11:11 Dose: 4 mg General: no acute distress, well developed, well nourished HEENT: atraumatic, normocephalic, PERRLA, EOMI, moist mucous membrane Neck: supple, no thyromegaly Cardiovascular: S1S2, regular Lungs: clear to auscultation bilaterally, clear to percussion Abdomen: soft, no tender, no distended Extremities: no cyanosis, no clubbing, no edema Neurological: awake, alert, oriented Skin: intact - Procedures Procedures: Procedures Procedure Code Date EMERGENCY DEPT VISIT 14587 02/03/00 IMMOBILIZ/WOUND ATTN NEC 93.59 08/01/01 Infectious Disease Assmt/Plan - Problem List Patient Problems: All Active Problems Bowel obstruction (Acute) K56.609 Bowel obstruction (Acute) K56.609 PERIPHERAL TREMORS WITH DIAPHORESIS (Acute) - Assessment Assessment: 1. Urinary tract infection. 2. Ileus versus small bowel obstruction. 3. Leukocytosis secondary to urinary tract infection and ileus versus small bowel obstruction. 4. Hyponatremia, rule out syndrome of inappropriate antidiuretic hormone. 5. History of psychosis. 6. History of hypertension. - Plan Plan: Continue Zosyn. Nutritional Asmnt/Malnutr-PDOC - Dietary Evaluation Malnutrition Findings (Please click <Entered> for more info): Nutritional Asmnt/Malnutrition Start: 05/23/18 16: 41 Text: Status: Complete Freq: Protocol: Document 05/23/18 16:41 KIRATRINITY (Rec: 05/23/18 16:54 KD [id number]) Nutritional Asmnt/Malnutrition Patient General Information Nutritional Screening High Risk Consult Diagnosis bowel obstruction Pertinent Medical Hx/Surgical Hx HTN, dyslipidemia, depression, anxiety, impulse disorder Subjective Information Consult received for elevated glucose 249. pt admitted for abdominal pain. Pt seen resting in bed at time of visit. Pt is NPO, NGT on suction. Current Diet Order/ Nutrition Support NPO Pertinent Medications novolot, piperacillin, zofran, piperacillin, nacl Pertinent Labs 05/23 Na 120, Cl 89, Cr 0.5, glucsose 241, alb 3.4 Nutritional Hx/Data Height 1.63 m Height (Calculated Centimeters) 162.6 Current Weight (lbs) 77.111 kg Weight (Calculated Kilograms) 77.1 Weight (Calculated Grams) 11426.7 [place] Body Weight 120 Body Mass Index (BMI) 29.2 Weight Status Overweight GI Symptoms GI Symptoms None Last BM not indicated Difficult in: None Skin Integrity/Comment: ecchymosis Current %PO Negligible < 25% Estimated Nutritional Goals BEE in Kcals: Using Current wt Calories/Kcals/Kg 23-27 Kcals Calculated 2857-2518 Protein: Using Current wt Protein g/k.8-1 Protein Calculated 62-77 Fluid: ml [id number] Nutritional Problem 2. Problem Problem altered nutrition related labs Etiology hyperglycemia Signs/Symptoms: glucose 241-249 1. Problem Problem inadequate food intake Etiology GI dysfunction Signs/Symptoms: pt on NPO Malnutrition Alert Is there a minimum of two criteria No selected? Query Text:Check all the applicable criteria. A minimum of two criteria are recommended for diagnosis of either severe or non-severe malnutrition. Malnutrition Related to Morbid Obesity Malnutrition related to morbid obesity No Intervention/Recommendation Comments 1. Monitor NPO status. Recommend clear liquid diet with Ensure Clear TID if diet advanced when medically appropriate 2. Monitor GI, wt, labs and skin integrity 3. F/U as high risk in 2-3 days Expected Outcomes/Goals Expected Outcomes/Goals 1. oral diet initiated in 2-3 days 2. Wt stability, skin to remain intact, labs to approach WNL.
--- NOTE | 2018-05-26 13:54 | Progress Notes ---
DATE: 05/26/2018 IDENTIFICATION: 82-year-old female. SUBJECTIVE: The patient is seen and examined. The patient is very anxious. The patient remained hemodynamically stable. No new event. PHYSICAL EXAMINATION: VITAL SIGNS: Temperature 98.7, pulse is 81, respiratory rate is 18, blood pressure is 152/80. HEENT: No facial asymmetry. Nasogastric tube noted. NECK: Supple, no JVD. HEART: Regular. CHEST: Lung equal in expansion, no expiratory wheezing. ABDOMEN: Soft, no guarding, no rigidity. Bowel sounds present. No palpable mass. EXTREMITIES: No edema. AVAILABLE DIAGNOSTIC DATA: White count 3, hemoglobin of 12.0, platelet count of 356. BUN and creatinine is 14 and 0.5, potassium 3.7, magnesium 1.7. Clinical small bowel series performed on 05/25/2018 revealed consistent small-bowel obstruction. CLINICAL IMPRESSION: 1. Small-bowel obstruction by upper GI. 2. Hypomagnesemia. 3. Mild leukopenia. 4. Ventral hernia. 5. Diabetes. 6. Dementia. 7. Psychotic disorder. 8. Degenerative joint disease. PLAN: Surgical treatment plan for bowel obstruction deferred to GI and General Surgery. Replace magnesium for now. Maximize cardiopulmonary status. Continue to follow consult recommendations. The patient is stable for the surgical intervention. [facility]# [id number]
[2018-05-26] MEDS ORDERED: Menthol/Zinc Oxide Oint 113gm Tube TP PRN (15:44)
--- NOTE | 2018-05-26 17:04 | Progress Notes ---
DATE: 05/22/2018 PROBLEM LIST: 1. Underlying bowel obstruction. 2. Underlying psychiatric illness with multiple agitation. SYMPTOMS: Restless. The patient is still restless, no distress, no respiratory except for periodic tachypnea. No other finding. PHYSICAL EXAMINATION: VITAL SIGNS: The patient's recorded temperature earlier was 98.3, BP is 135/63, respirations in low 10s, heart rate is in 90s, and saturation is okay on 2 liters per minute. NECK: Veins not visualized. CHEST: Shows occasional secretory noise with diminished air entry. HEART: Regular, slightly tachycardic. ABDOMEN: Slightly distended. LABORATORY DATA: The patient's white count is 3, hemoglobin is 12.0. Electrolytes are okay and sugar is 183. IMPRESSION: The patient clinically unchanged. Respiratory mcqueen optimally stable for surgery. PLANS AND SUGGESTIONS: We will go ahead and start PPN with peripheral line and see how she does and go from there. JOB# [id number]
--- NOTE | 2018-05-26 17:07 | GI Progress Note ---
Subjective - Review of Systems Service Date: 05/26/18 Events since last encounter: Patient had SB series which showed obstruction, plans underway for transfer to [facility] Objective - Results Result Diagrams: 05/26/18 04:00 05/26/18 04:00 Recent Labs: Laboratory Last Values WBC 3.0 Th/cmm (4.8-10.8) L 05/26/18 04:00 Corrected WBC (auto) 3.0 Th/cmm (4.8-10.8) L 05/26/18 04:00 RBC 4.31 Mil/cmm (3.80-5.20) 05/26/18 04:00 Hgb 12.0 gm/dL (12-16) 05/26/18 04:00 Hct 36.2 % (41.0-60) L 05/26/18 04:00 MCV 84.0 fl (81-100) 05/26/18 04:00 MCH 27.9 pg (27.0-31.0) 05/26/18 04:00 MCHC Differential 33.2 pg (28.0-36.0) 05/26/18 04:00 RDW 13.0 % (11.5-20.0) 05/26/18 04:00 Plt Count 356 Th/cmm (150-400) 05/26/18 04:00 MPV 6.2 fl 05/26/18 04:00 Add Manual Diff YES 05/26/18 04:00 Neutrophils % JAVA SDET 05/26/18 04:00 Band Neutrophils % 2 % (0-10) 05/26/18 04:00 Lymphocytes % JAVA SDET 05/26/18 04:00 Monocytes % JAVA SDET 05/26/18 04:00 Eosinophils % JAVA SDET 05/26/18 04:00 Basophils % Not Reportable 05/26/18 04:00 Neutrophils (Manual) 68 % (40-80) 05/26/18 04:00 Lymphocytes 20 % (20-50) 05/26/18 04:00 Monocytes 10 % (2-10) 05/26/18 04:00 Eosinophils 2 % (0-5) 05/24/18 07:05 Platelet Estimate ADEQUATE (NORMAL) 05/24/18 07:05 PT 10.8 SECONDS (9.5-11.5) 05/23/18 04:30 INR 1.04 (0.5-1.4) 05/23/18 04:30 PTT (Actin FS) 27.4 SECONDS (26.0-38.0) 05/23/18 04:30 Specimen Source Arterial 05/24/18 09:55 Sample Site LB 05/24/18 09:55 pH 7.36 (7.35-7.45) 05/24/18 09:55 pCO2 46.0 mmHg (35.0-45.0) H 05/24/18 09:55 pO2 85.0 mmHg (80.0-100.0) 05/24/18 09:55 HCO3 25.1 mEq/L (20.0-26.0) 05/24/18 09:55 Base Excess 0.2 mEq/L (-3.0-3.0) 05/24/18 09:55 O2 Saturation 96.0 % (92.0-100.0) 05/24/18 09:55 Inspired O2 28 05/24/18 09:55 Critical Value PW 05/24/18 09:55 Sodium 136 mEq/L (136-145) 05/26/18 04:00 Potassium 3.7 mEq/L (3.5-5.1) 05/26/18 04:00 Chloride 103 mEq/L (98-107) 05/26/18 04:00 Carbon Dioxide 25.2 mEq/L (21.0-31.0) 05/26/18 04:00 Anion Gap 11.5 (7.0-16.0) 05/26/18 04:00 BUN 14 mg/dL (7-25) 05/26/18 04:00 Creatinine 0.5 mg/dL (0.6-1.2) L 05/26/18 04:00 Est GFR ( Amer) TNP 05/26/18 04:00 Est GFR (Non-Af Amer) TNP 05/26/18 04:00 BUN/Creatinine Ratio 28.0 05/26/18 04:00 Glucose 180 mg/dL (70-105) H 05/26/18 04:00 POC Glucose 183 MG/DL (70 - 105) H 05/26/18 12:10 Plasma/Ser Osmolality 259 mOsmol/kg (280-301) L 05/23/18 09:55 Whole Bld Lactic Acid 0.94 mmol/L (0.60-1.99) 05/22/18 Unknown Calcium 9.0 mg/dL (8.6-10.3) 05/26/18 04:00 Phosphorus 3.2 mg/dL (2.5-5.0) 05/22/18 17:34 Magnesium 1.7 mg/dL (1.9-2.7) L 05/26/18 04:00 Total Bilirubin 0.4 mg/dL (0.3-1.0) 05/26/18 04:00 Direct Bilirubin 0.14 mg/dL (0.0-0.2) 05/24/18 07:05 AST 10 U/L (13-39) L 05/26/18 04:00 ALT 8 U/L (7-52) 05/26/18 04:00 Alkaline Phosphatase 34 U/L (34-104) 05/26/18 04:00 Ammonia 46 umol/L (16-53) 05/25/18 04:00 Total Protein 5.7 gm/dL (6.0-8.3) L 05/26/18 04:00 Albumin 3.2 gm/dL (3.7-5.3) L 05/26/18 04:00 Globulin 2.5 gm/dL 05/26/18 04:00 Albumin/Globulin Ratio 1.3 (1.0-1.8) 05/26/18 04:00 TSH 3.21 uIU/ml (0.34-5.60) 05/22/18 17:34 Urine Source CLEAN C 05/22/18 18:55 Urine Color YELLOW 05/22/18 18:55 Urine Clarity HAZY (CLEAR) 05/22/18 18:55 Urine pH 6.0 (4.6 - 8.0) 05/22/18 18:55 Ur Specific [place] >= 1.030 (1.005-1.030) 05/22/18 18:55 Urine Protein TRACE mg/dL (NEGATIVE) 05/22/18 18:55 Urine Glucose (UA) 100 mg/dL (NEGATIVE) H 05/22/18 18:55 Urine Ketones 40 mg/dL (NEGATIVE) H 05/22/18 18:55 Urine Blood MODERATE (NEGATIVE) H 05/22/18 18:55 Urine Nitrate POSITIVE (NEGATIVE) H 05/22/18 18:55 Urine Bilirubin NEGATIVE (NEGATIVE) 05/22/18 18:55 Urine Urobilinogen 0.2 E.U./dL (0.2 - 1.0) 05/22/18 18:55 Ur Leukocyte Esterase SMALL (NEGATIVE) H 05/22/18 18:55 Urine RBC 0-2 /hpf (0-5) 05/22/18 18:55 Urine WBC 6-10 /hpf (0-5) H 05/22/18 18:55 Ur Epithelial Cells OCCASIONAL /lpf (FEW) 05/22/18 18:55 Urine Bacteria 2+ /hpf (NONE SEEN) H 05/22/18 18:55 Urine Osmolality 583 mOsmol/kg 05/24/18 06:00 Ur Random Sodium 14 mmol/L 05/24/18 06:00 Vancomycin Trough 13.7 ug/mL (5-10) H 05/25/18 08:00 Valproic Acid 29.3 ug/mL (50.0-100.0) L 05/22/18 17:34 - Physical Exam Vitals and I&O: Vital Signs Temp 98.9 F 05/26/18 16:00 Pulse 116 05/26/18 16:00 Resp 19 05/26/18 16:00 BP 158/74 05/26/18 16:00 Pulse Ox 95 05/26/18 16:00 Intake & Output 05/25/18 05/26/18 05/26/18 18:59 06:59 18:59 Intake Total 1350 1450 300 Output Total 985 Balance 1350 465 300 Weight (lbs) 84.595 kg Intake: Intake, IV Amount 1350 1350 300 D5-0.9%Ns 1,000 ml @ 70 1000 1000 mls/hr IV .[id number] [facility] Rx #:[id number] Piperacillin Sodium/ 100 100 50 Tazobact 3.375 gm In Sodium Chloride 0.9% 50 ml @ 100 mls/hr IV Q6H [facility] Rx#:[id number] Vancomycin HCl 1 gm In 250 250 250 Sodium Chloride 0.9% 250 ml @ 165 mls/hr IV Q12H [facility] Rx#:[id number] Other 100 Output: Gastric Drainage 600 Urine 385 Other: # Bowel Movements 0 Stool Characteristics Soft Soft Formed Formed Brown Brown Weight Source Bedscale Active Medications: Current Medications Acetaminophen (Tylenol 650mg Supp) 650 mg RC Q4H PRN PRN Reason: PAIN OR TEMP >101 Stop: 07/21/18 22:25 Albuterol/Ipratropium (Duoneb Neb) 3 ml HHN [id number] [facility] Stop: 07/22/18 18:59 Last Admin: 05/26/18 14:22 Dose: 3 ml Bisacodyl (Dulcolax 10 Mg Supp) 10 mg RC DAILY [facility] Stop: 07/22/18 12:14 Last Admin: 05/26/18 08:00 Dose: 10 mg Budesonide (Pulmicort) 0.5 mg HHN BIDRT [facility] Stop: 07/22/18 18:59 Last Admin: 05/26/18 07:06 Dose: 0.5 mg Calamine/Phenol (Calmoseptine) 1 appl TP QID PRN PRN Reason: Skin Irritation Stop: 07/25/18 15:43 [place] Oil/Canadian Balsam/Trypsin (Venelex) 1 appl TP DAILY [facility] Stop: 07/25/18 15:59 Divalproex Sodium (Depakote Dr) 250 mg PO BID [facility]; Protocol Stop: 07/22/18 16:59 Last Admin: 05/26/18 08:49 Dose: Not Given Gabapentin (Neurontin) 300 mg PO TID [facility] Stop: 07/22/18 13:59 Last Admin: 05/26/18 14:00 Dose: Not Given Piperacillin Sod/Tazobactam (Sod 3.375 gm/ Sodium Chloride) 50 mls @ 100 mls/ hr IV Q6H [facility] Stop: 07/22/18 01:59 Last Admin: 05/26/18 14:27 Dose: 100 mls/hr Dextrose/Sodium Chloride (D5-0.9%Ns) 1,000 mls @ 70 mls/hr IV .[id number] [facility] Stop: 07/22/18 19:14 Last Admin: 05/26/18 07:56 Dose: 70 mls/hr Vancomycin HCl 1 gm/ Sodium (Chloride) 250 mls @ 165 mls/hr IV Q12H [facility] Stop: 07/23/18 08:59 Last Infusion: 05/26/18 10:45 Dose: Infused Amino Acids/Electrolytes (Procalamine) 1,000 mls @ 70 mls/hr IV .[id number] [facility] Stop: 07/25/18 19:59 Insulin Aspart (Novolog Insulin Sliding Scale) 0 units SUBQ Q6HR [facility]; Protocol Stop: 07/22/18 11:59 Last Admin: 05/26/18 12:24 Dose: 2 units Ketorolac Tromethamine (Toradol) 15 mg IVP Q6HR PRN PRN Reason: moderate pain Stop: 07/23/18 09:31 Last Admin: 05/26/18 11:31 Dose: 15 mg Lactobacillus Rhamnosus (Culturelle 15b) 1 each PO DAILY [facility] Stop: 07/25/18 08:59 Last Admin: 05/26/18 08:49 Dose: Not Given Lorazepam (Ativan) 0.5 mg IVP Q6HR PRN; Protocol PRN Reason: Agitation Stop: 07/23/18 11:49 Last Admin: 05/26/18 16:29 Dose: 0.5 mg Miscellaneous (Vancomycin Iv Per Pharmacy) 1 ea PRN PRN PRN Reason: PROTOCOL Stop: 07/22/18 18:56 Miscellaneous (Probiotic Screen) 1 ea PRN PRN PRN Reason: PROTOCOL Stop: 07/24/18 14:14 Miscellaneous (Ppn Per Pharmacy) 1 ea PRN PRN PRN Reason: PROTOCOL Stop: 07/25/18 16:42 Morphine Sulfate (Morphine) 2 mg IVP Q3H PRN PRN Reason: Pain (Severe) Stop: 07/21/18 22:22 Last Admin: 05/26/18 15:52 Dose: 2 mg Nystatin (Nystop) 0 units TP BID [facility] Stop: 07/25/18 16:59 Ondansetron HCl (Zofran) 4 mg IV Q6H PRN PRN Reason: Nausea / Vomiting Stop: 07/21/18 22:24 Last Admin: 05/25/18 11:11 Dose: 4 mg General: Alert, Oriented x3 HEENT: Atraumatic, PERRLA, EOMI Neck: Supple Cardiovascular: Regular rate, Normal S1, Normal S2 Lungs: Clear to auscultation, Normal air movement Abdomen: Bowel sounds, Tender, Distended - Procedures Procedures: Procedures Procedure Code Date EMERGENCY DEPT VISIT 64439 02/03/00 IMMOBILIZ/WOUND ATTN NEC 93.59 08/01/01 Assessment/Plan - Problem List Patient Problems: All Active Problems Bowel obstruction (Acute) K56.609 Bowel obstruction (Acute) K56.609 PERIPHERAL TREMORS WITH DIAPHORESIS (Acute) - Assessment Assessment: 1. Bowel obstruction 2. Herniated bowel 3. Probable hiatal hernia 4. Pneumonia -Plans for transfer for surgery -Probable hiatal hernia with coiling of NG tube -Will defer management to surgery at this time -When she is more stable will likely need an EGD electively or f/u with GI Will follow
[2018-05-26] MEDS: NYSTATIN 100000 UNITS/GM POWD TP SCH (17:23)
[2018-05-26] MEDS: Venelex 60gm Tube TP SCH (17:23)
[2018-05-26] MEDS: Amino Acids 3% / Electrolytes 1,000 ML IV SCH (19:19)
[2018-05-27] MEDS: Morphine Sulfate 2 mg/mL 1mL Syr IVP PRN ×2 (03:42→14:50)
[2018-05-27 04:33] LABS: HEMOGLOBIN 12.8 gm/dL (12-16); LYMPHOCYTE ABSOLUTE 0.3 Th/cmm (1.5-3.0); MEAN CORPUSCULAR HEMOGLOBIN 27.6 pg (27.0-31.0); MEAN PLATELET VOLUME 6.4 fl; MONOCYTE ABSOLUTE 0.9 Th/cmm (0.3-1.0); NEUTROPHILE ABSOLUTE 4.8 Th/cmm (1.8-8.0); PLATELET COUNT 412 Th/cmm (150-400); RED BLOOD COUNT 4.65 Mil/cmm (3.80-5.20)
[2018-05-27 05:47] LABS: BAND NEUTROPHILE 1 % (0-10); LYMPHOCYTE 12 % (20-50); MONOCYTE 12 % (2-10); NEUTROPHILS 75 % (40-80)
[2018-05-27] MEDS: INSULIN ASPART SLIDING SCALE 100 UNITS/ML UNIT SUBQ SCH ×3 (06:14→18:03)
[2018-05-27 06:17] LABS: ALB/GLOB RATIO 1.2 (1.0-1.8); ALBUMIN 3.3 gm/dL (3.7-5.3); ALKALINE PHOSPHATASE 37 U/L (34-104); ANION GAP 13.5 (7.0-16.0); BILIRUBIN,TOTAL 0.5 mg/dL (0.3-1.0); BUN - UREA NITROGEN 20 mg/dL (7-25); CALCIUM SERUM 9.5 mg/dL (8.6-10.3); CARBON DIOXIDE 24.2 mEq/L (21.0-31.0); CHLORIDE 103 mEq/L (98-107); CREATININE - SERUM 0.5 mg/dL (0.6-1.2); GLUCOSE 185 mg/dL (70-105); MAGNESIUM 1.9 mg/dL (1.9-2.7); PHOSPHOROUS 1.9 mg/dL (2.5-5.0); POTASSIUM SERUM 3.7 mEq/L (3.5-5.1); SGOT 10 U/L (13-39); SGPT/ALT 7 U/L (7-52); SODIUM SERUM 137 mEq/L (136-145); TOTAL PROTEIN,SERUM 6.1 gm/dL (6.0-8.3)
[2018-05-27] MEDS: Budesonide 0.5 Mg/2 mL Ud HHN SCH ×2 (07:05→19:35)
[2018-05-27] MEDS: Albuterol/Ipratropium Neb 3 ML AERS HHN SCH ×4 (07:05→19:35)
[2018-05-27] MEDS: Lactobacillus Rhamnosus GG 15 Billion CFU CAP.SPRINK PO SCH (09:42)
[2018-05-27] MEDS: NYSTATIN 100000 UNITS/GM POWD TP SCH ×2 (09:53→18:03)
[2018-05-27] MEDS: Venelex 60gm Tube TP SCH (09:53)
[2018-05-27 09:54] LABS: ALLEN TEST Positive; pH 7.44 (7.35-7.45)
[2018-05-27] MEDS ORDERED: Sodium Phosphate 30 MMOLE in Sodium Chloride 0.9% 250 ML IV ONE (10:00)
[2018-05-27] MEDS: Sodium Chloride 0.9% 1,000 ML IV SCH (10:30)
[2018-05-27] MEDS: Amino Acids 3% / Electrolytes 1,000 ML IV SCH (12:49)
--- NOTE | 2018-05-27 13:56 | Infectious Disease Prog Note ---
Infectious Disease Subjective - Review of Systems Service Date: 05/27/18 Subjective: There is no new change, no fever. Infectious Disease Objective - Results Result Diagrams: 05/27/18 04:04 05/27/18 04:04 Recent Labs: Laboratory Last Values WBC 6.0 Th/cmm (4.8-10.8) 05/27/18 04:04 Corrected WBC (auto) 3.0 Th/cmm (4.8-10.8) L 05/26/18 04:00 RBC 4.65 Mil/cmm (3.80-5.20) 05/27/18 04:04 Hgb 12.8 gm/dL (12-16) 05/27/18 04:04 Hct 40.0 % (41.0-60) L 05/27/18 04:04 MCV 86.0 fl (81-100) 05/27/18 04:04 MCH 27.6 pg (27.0-31.0) 05/27/18 04:04 MCHC Differential 32.0 pg (28.0-36.0) 05/27/18 04:04 RDW 13.0 % (11.5-20.0) 05/27/18 04:04 Plt Count 412 Th/cmm (150-400) H 05/27/18 04:04 MPV 6.4 fl 05/27/18 04:04 Add Manual Diff YES 05/27/18 04:04 Neutrophils % [employer] 05/26/18 04:00 Band Neutrophils % 1 % (0-10) 05/27/18 04:04 Lymphocytes % [employer] 05/26/18 04:00 Monocytes % [employer] 05/26/18 04:00 Eosinophils % [employer] 05/26/18 04:00 Basophils % Not Reportable 05/26/18 04:00 Neutrophils (Manual) 75 % (40-80) 05/27/18 04:04 Lymphocytes 12 % (20-50) L 05/27/18 04:04 Monocytes 12 % (2-10) H 05/27/18 04:04 Eosinophils 2 % (0-5) 05/24/18 07:05 Platelet Estimate ADEQUATE (NORMAL) 05/24/18 07:05 PT 10.8 SECONDS (9.5-11.5) 05/23/18 04:30 INR 1.04 (0.5-1.4) 05/23/18 04:30 PTT (Actin FS) 27.4 SECONDS (26.0-38.0) 05/23/18 04:30 Specimen Source Arterial 05/27/18 08:55 Sample Site Right Radial 05/27/18 08:55 pH 7.44 (7.35-7.45) 05/27/18 08:55 pCO2 37.0 mmHg (35.0-45.0) 05/27/18 08:55 pO2 100.0 mmHg (80.0-100.0) 05/27/18 08:55 HCO3 25.8 mEq/L (20.0-26.0) 05/27/18 08:55 Base Excess 1.1 mEq/L (-3.0-3.0) 05/27/18 08:55 O2 Saturation 98.0 % (92.0-100.0) 05/27/18 08:55 Ricky Test Positive 05/27/18 08:55 Vent Rate N/A 05/27/18 08:55 Inspired O2 28 05/27/18 08:55 Tidal Volume N/A 05/27/18 08:55 PEEP N/A 05/27/18 08:55 Pressure (ins/psv/peep) N/A 05/27/18 08:55 Critical Value DM 05/27/18 08:55 Sodium 137 mEq/L (136-145) 05/27/18 04:04 Potassium 3.7 mEq/L (3.5-5.1) 05/27/18 04:04 Chloride 103 mEq/L (98-107) 05/27/18 04:04 Carbon Dioxide 24.2 mEq/L (21.0-31.0) 05/27/18 04:04 Anion Gap 13.5 (7.0-16.0) 05/27/18 04:04 BUN 20 mg/dL (7-25) 05/27/18 04:04 Creatinine 0.5 mg/dL (0.6-1.2) L 05/27/18 04:04 Est GFR ( Amer) TNP 05/27/18 04:04 Est GFR (Non-Af Amer) TNP 05/27/18 04:04 BUN/Creatinine Ratio 40.0 05/27/18 04:04 Glucose 185 mg/dL (70-105) H 05/27/18 04:04 POC Glucose 204 MG/DL (70 - 105) H 05/27/18 12:33 Plasma/Ser Osmolality 259 mOsmol/kg (280-301) L 05/23/18 09:55 Whole Bld Lactic Acid 0.94 mmol/L (0.60-1.99) 05/22/18 Unknown Calcium 9.5 mg/dL (8.6-10.3) 05/27/18 04:04 Phosphorus 1.9 mg/dL (2.5-5.0) L 05/27/18 04:04 Magnesium 1.9 mg/dL (1.9-2.7) 05/27/18 04:04 Total Bilirubin 0.5 mg/dL (0.3-1.0) 05/27/18 04:04 Direct Bilirubin 0.14 mg/dL (0.0-0.2) 05/24/18 07:05 AST 10 U/L (13-39) L 05/27/18 04:04 ALT 7 U/L (7-52) 05/27/18 04:04 Alkaline Phosphatase 37 U/L (34-104) 05/27/18 04:04 Ammonia 46 umol/L (16-53) 05/25/18 04:00 Total Protein 6.1 gm/dL (6.0-8.3) 05/27/18 04:04 Albumin 3.3 gm/dL (3.7-5.3) L 05/27/18 04:04 Globulin 2.8 gm/dL 05/27/18 04:04 Albumin/Globulin Ratio 1.2 (1.0-1.8) 05/27/18 04:04 TSH 3.21 uIU/ml (0.34-5.60) 05/22/18 17:34 Urine Source CLEAN C 05/22/18 18:55 Urine Color YELLOW 05/22/18 18:55 Urine Clarity HAZY (CLEAR) 05/22/18 18:55 Urine pH 6.0 (4.6 - 8.0) 05/22/18 18:55 Ur Specific [place] >= 1.030 (1.005-1.030) 05/22/18 18:55 Urine Protein TRACE mg/dL (NEGATIVE) 05/22/18 18:55 Urine Glucose (UA) 100 mg/dL (NEGATIVE) H 05/22/18 18:55 Urine Ketones 40 mg/dL (NEGATIVE) H 05/22/18 18:55 Urine Blood MODERATE (NEGATIVE) H 05/22/18 18:55 Urine Nitrate POSITIVE (NEGATIVE) H 05/22/18 18:55 Urine Bilirubin NEGATIVE (NEGATIVE) 05/22/18 18:55 Urine Urobilinogen 0.2 E.U./dL (0.2 - 1.0) 05/22/18 18:55 Ur Leukocyte Esterase SMALL (NEGATIVE) H 05/22/18 18:55 Urine RBC 0-2 /hpf (0-5) 05/22/18 18:55 Urine WBC 6-10 /hpf (0-5) H 05/22/18 18:55 Ur Epithelial Cells OCCASIONAL /lpf (FEW) 05/22/18 18:55 Urine Bacteria 2+ /hpf (NONE SEEN) H 05/22/18 18:55 Urine Osmolality 583 mOsmol/kg 05/24/18 06:00 Ur Random Sodium 14 mmol/L 05/24/18 06:00 Vancomycin Trough 13.7 ug/mL (5-10) H 05/25/18 08:00 Valproic Acid 29.3 ug/mL (50.0-100.0) L 05/22/18 17:34 - Physical Exam Vitals and I&O: Vital Signs Temp 98.6 F 05/27/18 12:00 Pulse 108 05/27/18 12:00 Resp 28 05/27/18 12:00 BP 153/97 05/27/18 12:00 Pulse Ox 95 05/27/18 12:00 Intake & Output 05/26/18 05/27/18 05/27/18 18:59 06:59 18:59 Intake Total 377 942 6835 Output Total 395 250 Balance -45 100 1300 Weight (lbs) 84.822 kg 79.333 kg Intake: Intake, IV Amount 589 734 4094 Amino Acids 3% / 1000 Electrolytes 1,000 ml @ 70 mls/hr IV .[id number] [facility] Rx#:[id number] Piperacillin Sodium/ 100 100 50 Tazobact 3.375 gm In Sodium Chloride 0.9% 50 ml @ 100 mls/hr IV Q6H [facility] Rx#:[id number] Vancomycin HCl 1 gm In 250 250 250 Sodium Chloride 0.9% 250 ml @ 165 mls/hr IV Q12H [facility] Rx#:[id number] Output: Gastric Drainage 200 100 Urine 195 150 Other: Stool Characteristics Soft Formed Brown Weight Source Bedscale Bedscale Active Medications: Current Medications Acetaminophen (Tylenol 650mg Supp) 650 mg RC Q4H PRN PRN Reason: PAIN OR TEMP >101 Stop: 07/21/18 22:25 Albuterol/Ipratropium (Duoneb Neb) 3 ml HHN [id number] [facility] Stop: 07/22/18 18:59 Last Admin: 05/27/18 10:56 Dose: 3 ml Bisacodyl (Dulcolax 10 Mg Supp) 10 mg RC DAILY [facility] Stop: 07/22/18 12:14 Last Admin: 05/27/18 09:53 Dose: 10 mg Budesonide (Pulmicort) 0.5 mg HHN BIDRT [facility] Stop: 07/22/18 18:59 Last Admin: 05/27/18 07:05 Dose: 0.5 mg Calamine/Phenol (Calmoseptine) 1 appl TP QID PRN PRN Reason: Skin Irritation Stop: 07/25/18 15:43 Last Admin: 05/26/18 17:23 Dose: 1 appl [place] Oil/[place] Balsam/Trypsin (Venelex) 1 appl TP DAILY [facility] Stop: 07/25/18 15:59 Last Admin: 05/27/18 09:53 Dose: 1 appl Divalproex Sodium (Depakote Dr) 250 mg PO BID [facility]; Protocol Stop: 07/22/18 16:59 Last Admin: 05/27/18 09:42 Dose: Not Given Gabapentin (Neurontin) 300 mg PO TID [facility] Stop: 07/22/18 13:59 Last Admin: 05/27/18 09:42 Dose: Not Given Piperacillin Sod/Tazobactam (Sod 3.375 gm/ Sodium Chloride) 50 mls @ 100 mls/ hr IV Q6H [facility] Stop: 07/22/18 01:59 Last Infusion: 05/27/18 10:16 Dose: Infused Vancomycin HCl 1 gm/ Sodium (Chloride) 250 mls @ 165 mls/hr IV Q12H [facility] Stop: 07/23/18 08:59 Last Infusion: 05/27/18 12:45 Dose: Infused Amino Acids/Electrolytes (Procalamine) 1,000 mls @ 70 mls/hr IV .[id number] [facility] Stop: 05/27/18 16:00 Last Admin: 05/27/18 12:49 Dose: 70 mls/hr Multivitamins/Minerals 10 ml/Insulin Human Regular 10 units / Dextrose/ Amino Acids/Electrolytes/ Sterile Water 1,710.1 mls @ 70 mls/hr IV .Q24H [facility] Stop: 06/25/18 15:59 Sodium Phosphate 30 mmole/ (Sodium Chloride) 260 mls @ 42.5 mls/hr IV X1 ONE Stop: 05/27/18 16:07 Last Admin: 05/27/18 11:42 Dose: 42.5 mls/hr Sodium Chloride (Nacl 0.9%) 1,000 mls @ 30 mls/hr IV .Q24H [facility] Stop: 07/26/18 10:29 Insulin Aspart (Novolog Insulin Sliding Scale) 0 units SUBQ Q6HR [facility]; Protocol Stop: 07/22/18 11:59 Last Admin: 05/27/18 12:38 Dose: 4 units Ketorolac Tromethamine (Toradol) 15 mg IVP Q6HR PRN PRN Reason: moderate pain Stop: 07/23/18 09:31 Last Admin: 05/26/18 11:31 Dose: 15 mg Lactobacillus Rhamnosus (Culturelle 15b) 1 each PO DAILY [facility] Stop: 07/25/18 08:59 Last Admin: 05/27/18 09:42 Dose: Not Given Lorazepam (Ativan) 0.5 mg IVP Q6HR PRN; Protocol PRN Reason: Agitation Stop: 07/23/18 11:49 Last Admin: 05/27/18 09:51 Dose: 0.5 mg Miscellaneous (Vancomycin Iv Per Pharmacy) 1 ea [facility] PRN PRN PRN Reason: PROTOCOL Stop: 07/22/18 18:56 Miscellaneous (Probiotic Screen) 1 ea PRN PRN PRN Reason: PROTOCOL Stop: 07/24/18 14:14 Miscellaneous (Ppn Per Pharmacy) 1 ea PRN PRN PRN Reason: PROTOCOL Stop: 07/25/18 16:42 Morphine Sulfate (Morphine) 2 mg IVP Q3H PRN PRN Reason: Pain (Severe) Stop: 07/21/18 22:22 Last Admin: 05/27/18 03:42 Dose: 2 mg Nystatin (Nystop) 0 units TP BID [facility] Stop: 07/25/18 16:59 Last Admin: 05/27/18 09:53 Dose: 1 units Ondansetron HCl (Zofran) 4 mg IV Q6H PRN PRN Reason: Nausea / Vomiting Stop: 07/21/18 22:24 Last Admin: 05/25/18 11:11 Dose: 4 mg General: no acute distress, well developed, well nourished HEENT: atraumatic, normocephalic, PERRLA, EOMI Neck: supple, no thyromegaly Cardiovascular: S1S2, regular Lungs: clear to auscultation bilaterally, clear to percussion, no crackles Abdomen: soft, distended, other (ventral hernia), no tender Extremities: no cyanosis, no clubbing, no edema Neurological: awake, alert Skin: intact - Procedures Procedures: Procedures Procedure Code Date EMERGENCY DEPT VISIT 02288 02/03/00 IMMOBILIZ/WOUND ATTN NEC 93.59 08/01/01 Infectious Disease Assmt/Plan - Problem List Patient Problems: All Active Problems Bowel obstruction (Acute) K56.609 Bowel obstruction (Acute) K56.609 PERIPHERAL TREMORS WITH DIAPHORESIS (Acute) - Assessment Assessment: 1. Urinary tract infection. 2. Ileus versus small bowel obstruction. 3. Leukocytosis secondary to urinary tract infection and ileus versus small bowel obstruction. 4. Hyponatremia, rule out syndrome of inappropriate antidiuretic hormone. 5. History of psychosis. 6. History of hypertension. - Plan Plan: Continue Zosyn D5/7. Patient is getting transferred to higher level of care. Nutritional Asmnt/Malnutr-PDOC - Dietary Evaluation Malnutrition Findings (Please click <Entered> for more info): Nutritional Asmnt/Malnutrition Start: 05/23/18 16: 41 Text: Status: Complete Freq: Protocol: Document 05/23/18 16:41 LCHENG (Rec: 05/23/18 16:54 [id number]) Nutritional Asmnt/Malnutrition Patient General Information Nutritional Screening High Risk Consult Diagnosis bowel obstruction Pertinent Medical Hx/Surgical Hx HTN, dyslipidemia, depression, anxiety, impulse disorder Subjective Information Consult received for elevated glucose 249. pt admitted for abdominal pain. Pt seen resting in bed at time of visit. Pt is NPO, NGT on suction. Current Diet Order/ Nutrition Support NPO Pertinent Medications novolot, piperacillin, zofran, piperacillin, nacl Pertinent Labs 05/23 Na 120, Cl 89, Cr 0.5, glucsose 241, alb 3.4 Nutritional Hx/Data Height 1.63 m Height (Calculated Centimeters) 162.6 Current Weight (lbs) 77.111 kg Weight (Calculated Kilograms) 77.1 Weight (Calculated Grams) 04000.7 [place] Body Weight 120 Body Mass Index (BMI) 29.2 Weight Status Overweight GI Symptoms GI Symptoms None Last BM not indicated Difficult in: None Skin Integrity/Comment: ecchymosis Current %PO Negligible < 25% Estimated Nutritional Goals BEE in Kcals: Using Current wt Calories/Kcals/Kg 23-27 Kcals Calculated 5592-8828 Protein: Using Current wt Protein g/k.8-1 Protein Calculated 62-77 Fluid: ml 2866-7918 Nutritional Problem 2. Problem Problem altered nutrition related labs Etiology hyperglycemia Signs/Symptoms: glucose 241-249 1. Problem Problem inadequate food intake Etiology GI dysfunction Signs/Symptoms: pt on NPO Malnutrition Alert Is there a minimum of two criteria No selected? Query Text:Check all the applicable criteria. A minimum of two criteria are recommended for diagnosis of either severe or non-severe malnutrition. Malnutrition Related to Morbid Obesity Malnutrition related to morbid obesity No Intervention/Recommendation Comments 1. Monitor NPO status. Recommend clear liquid diet with Ensure Clear TID if diet advanced when medically appropriate 2. Monitor GI, wt, labs and skin integrity 3. F/U as high risk in 2-3 days Expected Outcomes/Goals Expected Outcomes/Goals 1. oral diet initiated in 2-3 days 2. Wt stability, skin to remain intact, labs to approach WNL.
--- NOTE | 2018-05-27 15:40 | GI Progress Note ---
Subjective - Review of Systems Service Date: 05/27/18 Events since last encounter: No events Objective - Results Result Diagrams: 05/27/18 04:04 05/27/18 04:04 Recent Labs: Laboratory Last Values WBC 6.0 Th/cmm (4.8-10.8) 05/27/18 04:04 Corrected WBC (auto) 3.0 Th/cmm (4.8-10.8) L 05/26/18 04:00 RBC 4.65 Mil/cmm (3.80-5.20) 05/27/18 04:04 Hgb 12.8 gm/dL (12-16) 05/27/18 04:04 Hct 40.0 % (41.0-60) L 05/27/18 04:04 MCV 86.0 fl (81-100) 05/27/18 04:04 MCH 27.6 pg (27.0-31.0) 05/27/18 04:04 MCHC Differential 32.0 pg (28.0-36.0) 05/27/18 04:04 RDW 13.0 % (11.5-20.0) 05/27/18 04:04 Plt Count 412 Th/cmm (150-400) H 05/27/18 04:04 MPV 6.4 fl 05/27/18 04:04 Add Manual Diff YES 05/27/18 04:04 Neutrophils % [employer] 05/26/18 04:00 Band Neutrophils % 1 % (0-10) 05/27/18 04:04 Lymphocytes % ONLINE [employer]VERTISING ANALYST 05/26/18 04:00 Monocytes % ONLINE ADVERTISING ANALYST 05/26/18 04:00 Eosinophils % ONLINE [employer]ISING [employer]NALYST 05/26/18 04:00 Basophils % Not Reportable 05/26/18 04:00 Neutrophils (Manual) 75 % (40-80) 05/27/18 04:04 Lymphocytes 12 % (20-50) L 05/27/18 04:04 Monocytes 12 % (2-10) H 05/27/18 04:04 Eosinophils 2 % (0-5) 05/24/18 07:05 Platelet Estimate ADEQUATE (NORMAL) 05/24/18 07:05 PT 10.8 SECONDS (9.5-11.5) 05/23/18 04:30 INR 1.04 (0.5-1.4) 05/23/18 04:30 PTT (Actin FS) 27.4 SECONDS (26.0-38.0) 05/23/18 04:30 Specimen Source Arterial 05/27/18 08:55 Sample Site Right Radial 05/27/18 08:55 pH 7.44 (7.35-7.45) 05/27/18 08:55 pCO2 37.0 mmHg (35.0-45.0) 05/27/18 08:55 pO2 100.0 mmHg (80.0-100.0) 05/27/18 08:55 HCO3 25.8 mEq/L (20.0-26.0) 05/27/18 08:55 Base Excess 1.1 mEq/L (-3.0-3.0) 05/27/18 08:55 O2 Saturation 98.0 % (92.0-100.0) 05/27/18 08:55 Ricky Test Positive 05/27/18 08:55 Vent Rate N/A 05/27/18 08:55 Inspired O2 28 05/27/18 08:55 Tidal Volume N/A 05/27/18 08:55 PEEP N/A 05/27/18 08:55 Pressure (ins/psv/peep) N/A 05/27/18 08:55 Critical Value DM 05/27/18 08:55 Sodium 137 mEq/L (136-145) 05/27/18 04:04 Potassium 3.7 mEq/L (3.5-5.1) 05/27/18 04:04 Chloride 103 mEq/L (98-107) 05/27/18 04:04 Carbon Dioxide 24.2 mEq/L (21.0-31.0) 05/27/18 04:04 Anion Gap 13.5 (7.0-16.0) 05/27/18 04:04 BUN 20 mg/dL (7-25) 05/27/18 04:04 Creatinine 0.5 mg/dL (0.6-1.2) L 05/27/18 04:04 Est GFR ( Amer) TNP 05/27/18 04:04 Est GFR (Non-Af Amer) TNP 05/27/18 04:04 BUN/Creatinine Ratio 40.0 05/27/18 04:04 Glucose 185 mg/dL (70-105) H 05/27/18 04:04 POC Glucose 204 MG/DL (70 - 105) H 05/27/18 12:33 Plasma/Ser Osmolality 259 mOsmol/kg (280-301) L 05/23/18 09:55 Whole Bld Lactic Acid 0.94 mmol/L (0.60-1.99) 05/22/18 Unknown Calcium 9.5 mg/dL (8.6-10.3) 05/27/18 04:04 Phosphorus 1.9 mg/dL (2.5-5.0) L 05/27/18 04:04 Magnesium 1.9 mg/dL (1.9-2.7) 05/27/18 04:04 Total Bilirubin 0.5 mg/dL (0.3-1.0) 05/27/18 04:04 Direct Bilirubin 0.14 mg/dL (0.0-0.2) 05/24/18 07:05 AST 10 U/L (13-39) L 05/27/18 04:04 ALT 7 U/L (7-52) 05/27/18 04:04 Alkaline Phosphatase 37 U/L (34-104) 05/27/18 04:04 Ammonia 46 umol/L (16-53) 05/25/18 04:00 Total Protein 6.1 gm/dL (6.0-8.3) 05/27/18 04:04 Albumin 3.3 gm/dL (3.7-5.3) L 05/27/18 04:04 Globulin 2.8 gm/dL 05/27/18 04:04 Albumin/Globulin Ratio 1.2 (1.0-1.8) 05/27/18 04:04 TSH 3.21 uIU/ml (0.34-5.60) 05/22/18 17:34 Urine Source CLEAN C 05/22/18 18:55 Urine Color YELLOW 05/22/18 18:55 Urine Clarity HAZY (CLEAR) 05/22/18 18:55 Urine pH 6.0 (4.6 - 8.0) 05/22/18 18:55 Ur Specific [place] >= 1.030 (1.005-1.030) 05/22/18 18:55 Urine Protein TRACE mg/dL (NEGATIVE) 05/22/18 18:55 Urine Glucose (UA) 100 mg/dL (NEGATIVE) H 05/22/18 18:55 Urine Ketones 40 mg/dL (NEGATIVE) H 05/22/18 18:55 Urine Blood MODERATE (NEGATIVE) H 05/22/18 18:55 Urine Nitrate POSITIVE (NEGATIVE) H 05/22/18 18:55 Urine Bilirubin NEGATIVE (NEGATIVE) 05/22/18 18:55 Urine Urobilinogen 0.2 E.U./dL (0.2 - 1.0) 05/22/18 18:55 Ur Leukocyte Esterase SMALL (NEGATIVE) H 05/22/18 18:55 Urine RBC 0-2 /hpf (0-5) 05/22/18 18:55 Urine WBC 6-10 /hpf (0-5) H 05/22/18 18:55 Ur Epithelial Cells OCCASIONAL /lpf (FEW) 05/22/18 18:55 Urine Bacteria 2+ /hpf (NONE SEEN) H 05/22/18 18:55 Urine Osmolality 583 mOsmol/kg 05/24/18 06:00 Ur Random Sodium 14 mmol/L 05/24/18 06:00 Vancomycin Trough 13.7 ug/mL (5-10) H 05/25/18 08:00 Valproic Acid 29.3 ug/mL (50.0-100.0) L 05/22/18 17:34 - Physical Exam Vitals and I&O: Vital Signs Temp 98.6 F 05/27/18 12:00 Pulse 112 05/27/18 15:19 Resp 16 05/27/18 15:19 BP 153/97 05/27/18 12:00 Pulse Ox 95 05/27/18 15:19 Intake & Output 05/26/18 05/27/18 05/27/18 18:59 06:59 18:59 Intake Total 953 902 0558 Output Total 395 250 Balance -45 100 1300 Weight (lbs) 84.822 kg 79.333 kg Intake: Intake, IV Amount 516 793 4014 Amino Acids 3% / 1000 Electrolytes 1,000 ml @ 70 mls/hr IV .[id number] [facility] Rx#:[id number] Piperacillin Sodium/ 100 100 50 Tazobact 3.375 gm In Sodium Chloride 0.9% 50 ml @ 100 mls/hr IV Q6H [facility] Rx#:[id number] Vancomycin HCl 1 gm In 250 250 250 Sodium Chloride 0.9% 250 ml @ 165 mls/hr IV Q12H [facility] Rx#:[id number] Output: Gastric Drainage 200 100 Urine 195 150 Other: Stool Characteristics Soft Formed Brown Weight Source Bedscale Bedscale Active Medications: Current Medications Acetaminophen (Tylenol 650mg Supp) 650 mg RC Q4H PRN PRN Reason: PAIN OR TEMP >101 Stop: 07/21/18 22:25 Albuterol/Ipratropium (Duoneb Neb) 3 ml HHN [id number] [facility] Stop: 07/22/18 18:59 Last Admin: 05/27/18 15:18 Dose: 3 ml Bisacodyl (Dulcolax 10 Mg Supp) 10 mg RC DAILY [facility] Stop: 07/22/18 12:14 Last Admin: 05/27/18 09:53 Dose: 10 mg Budesonide (Pulmicort) 0.5 mg HHN BIDRT [facility] Stop: 07/22/18 18:59 Last Admin: 05/27/18 07:05 Dose: 0.5 mg Calamine/Phenol (Calmoseptine) 1 appl TP QID PRN PRN Reason: Skin Irritation Stop: 07/25/18 15:43 Last Admin: 05/26/18 17:23 Dose: 1 appl [place] Oil/[place] Balsam/Trypsin (Venelex) 1 appl TP DAILY [facility] Stop: 07/25/18 15:59 Last Admin: 05/27/18 09:53 Dose: 1 appl Divalproex Sodium (Depakote Dr) 250 mg PO BID [facility]; Protocol Stop: 07/22/18 16:59 Last Admin: 05/27/18 09:42 Dose: Not Given Gabapentin (Neurontin) 300 mg PO TID [facility] Stop: 07/22/18 13:59 Last Admin: 05/27/18 14:50 Dose: Not Given Piperacillin Sod/Tazobactam (Sod 3.375 gm/ Sodium Chloride) 50 mls @ 100 mls/ hr IV Q6H [facility] Stop: 07/22/18 01:59 Last Admin: 05/27/18 14:56 Dose: 100 mls/hr Amino Acids/Electrolytes (Procalamine) 1,000 mls @ 70 mls/hr IV .[id number] [facility] Stop: 05/27/18 16:00 Last Admin: 05/27/18 12:49 Dose: 70 mls/hr Multivitamins/Minerals 10 ml/Insulin Human Regular 10 units / Dextrose/ Amino Acids/Electrolytes/ Sterile Water 1,710.1 mls @ 70 mls/hr IV .Q24H [facility] Stop: 06/25/18 15:59 Sodium Phosphate 30 mmole/ (Sodium Chloride) 260 mls @ 42.5 mls/hr IV X1 ONE Stop: 05/27/18 16:07 Last Admin: 05/27/18 11:42 Dose: 42.5 mls/hr Sodium Chloride (Nacl 0.9%) 1,000 mls @ 30 mls/hr IV .Q24H [facility] Stop: 07/26/18 10:29 Insulin Aspart (Novolog Insulin Sliding Scale) 0 units SUBQ Q6HR [facility]; Protocol Stop: 07/22/18 11:59 Last Admin: 05/27/18 12:38 Dose: 4 units Ketorolac Tromethamine (Toradol) 15 mg IVP Q6HR PRN PRN Reason: moderate pain Stop: 07/23/18 09:31 Last Admin: 05/26/18 11:31 Dose: 15 mg Lactobacillus Rhamnosus (Culturelle 15b) 1 each PO DAILY [facility] Stop: 07/25/18 08:59 Last Admin: 05/27/18 09:42 Dose: Not Given Lorazepam (Ativan) 0.5 mg IVP Q6HR PRN; Protocol PRN Reason: Agitation Stop: 07/23/18 11:49 Last Admin: 05/27/18 09:51 Dose: 0.5 mg Miscellaneous (Probiotic Screen) 1 ea PRN PRN PRN Reason: PROTOCOL Stop: 07/24/18 14:14 Miscellaneous (Ppn Per Pharmacy) 1 ea PRN PRN PRN Reason: PROTOCOL Stop: 07/25/18 16:42 Morphine Sulfate (Morphine) 2 mg IVP Q3H PRN PRN Reason: Pain (Severe) Stop: 07/21/18 22:22 Last Admin: 05/27/18 14:50 Dose: 2 mg Nystatin (Nystop) 0 units TP BID [facility] Stop: 07/25/18 16:59 Last Admin: 05/27/18 09:53 Dose: 1 units Ondansetron HCl (Zofran) 4 mg IV Q6H PRN PRN Reason: Nausea / Vomiting Stop: 07/21/18 22:24 Last Admin: 05/25/18 11:11 Dose: 4 mg General: Alert, Mild distress HEENT: Atraumatic, PERRLA, EOMI Neck: Supple Cardiovascular: Regular rate, Normal S1, Normal S2 Lungs: Clear to auscultation, Normal air movement Abdomen: Bowel sounds, Tender, Distended - Procedures Procedures: Procedures Procedure Code Date EMERGENCY DEPT VISIT 53864 02/03/00 IMMOBILIZ/WOUND ATTN NEC 93.59 08/01/01 Assessment/Plan - Problem List Patient Problems: All Active Problems Bowel obstruction (Acute) K56.609 Bowel obstruction (Acute) K56.609 PERIPHERAL TREMORS WITH DIAPHORESIS (Acute) - Assessment Assessment: 1. Bowel obstruction 2. Herniated bowel 3. Probable hiatal hernia 4. Pneumonia -Plans for transfer for surgery -Probable hiatal hernia with coiling of NG tube -Will defer management to surgery at this time - Will follow Will follow
[2018-05-27] MEDS: TPN 8.5%-70% CUSTOM IV SCH (16:30)
--- NOTE | 2018-05-27 17:57 | Progress Notes ---
DATE: 05/27/2018 PULMONARY PROGRESS NOTE The patient is still moaning and groaning, still on NG tube. No specific new respiratory distress, etc. was started. PHYSICAL EXAMINATION: VITAL SIGNS: The patient is afebrile. Temperature is 98.6, blood pressure 150/86, saturation is diminished 90%-97% on 2 liters. NECK: Veins not visualized. CHEST: Shows occasional rhonchi with diminished air entry. HEART: Regular. ABDOMEN: Soft, nontender. LABORATORY DATA: The patient's ABG looks okay on 2 liters. The patient's white count is 6000, hemoglobin 12.8. IMPRESSION: The patient is clinically stable, improving. PLANS AND SUGGESTIONS: Continue current treatment. Await for the transfer, etc. and go from there. JOB# [id number]
[2018-05-28] MEDS: Morphine Sulfate 2 mg/mL 1mL Syr IVP PRN ×4 (00:10→18:07)
[2018-05-28] MEDS: INSULIN ASPART SLIDING SCALE 100 UNITS/ML UNIT SUBQ SCH ×4 (00:31→18:09)
[2018-05-28] MEDS: Budesonide 0.5 Mg/2 mL Ud HHN SCH ×2 (07:09→18:32)
--- NOTE | 2018-05-28 07:20 | Progress Notes ---
DATE: PATIENT'S IDENTIFICATION: An 82-year-old female. The patient was seen and examined. The patient has persistent bowel obstruction, though patient needs a higher level of care. I did discuss with surgeon who suggested to transfer this patient to [facility]. The patient currently denies any fever or chills, still patient is very anxious. OBJECTIVE: VITAL SIGNS: Temperature 98.2, pulse is 100, respiratory rate 20, blood pressure is 130/79. HEENT: No facial asymmetry. NECK: Supple, no JVD. HEART: Regular. CHEST AND LUNG: Equal in expansion. No expiratory wheezing. ABDOMEN: Distended, palpable hernia and bowel noted with absent bowel sounds. EXTREMITIES: No edema. NEUROLOGIC: Alert, awake, follows command clinically. AVAILABLE DIAGNOSTIC DATA: White count of 6, hemoglobin 12.8, platelet count of 412. BUN and creatinine is 20 and 0.5, blood sugar of 185, alkaline phosphorus of 1.9. CLINICAL IMPRESSION: 1. Persistent small bowel obstruction, need for surgery. 2. Hypophosphatemia. 3. Diabetes. 4. Degenerative joint disease. 5. Dementia. 6. Psychotic disorder. PLAN: Discussed with the patient's son over the phone about transferring this patient to [facility] and will make appropriate arrangements at this time. Continue current treatment plan as prescribed and give her Neutra-Phos for low phosphorus as well. Care plan reviewed and discussed with RN. JOB# [id number]
[2018-05-28] MEDS: Albuterol/Ipratropium Neb 3 ML AERS HHN SCH ×4 (07:30→18:32)
[2018-05-28 07:53] LABS: HEMOGLOBIN 12.4 gm/dL (12-16)
[2018-05-28 07:58] LABS: HEMATOCRIT 37.8 % (41.0-60); MEAN CELL VOLUME 85.7 fl (81-100); MEAN CORPUSCULAR HEMOGLOBIN 28.1 pg (27.0-31.0); MEAN CORPUSCULAR HGB CONC 32.8 pg (28.0-36.0); MEAN PLATELET VOLUME 6.1 fl; PLATELET COUNT 394 Th/cmm (150-400); RED BLOOD COUNT 4.42 Mil/cmm (3.80-5.20); WHITE BLOOD COUNT 4.5 Th/cmm (4.8-10.8)
[2018-05-28 08:18] LABS: ALB/GLOB RATIO 1.1 (1.0-1.8); ALBUMIN 2.9 gm/dL (3.7-5.3); ALKALINE PHOSPHATASE 31 U/L (34-104); ANION GAP 11.2 (7.0-16.0); BILIRUBIN,TOTAL 0.4 mg/dL (0.3-1.0); BUN - UREA NITROGEN 26 mg/dL (7-25); CALCIUM SERUM 9.1 mg/dL (8.6-10.3); CARBON DIOXIDE 27.5 mEq/L (21.0-31.0); CHLORIDE 105 mEq/L (98-107); GLUCOSE 217 mg/dL (70-105); MAGNESIUM 1.7 mg/dL (1.9-2.7); POTASSIUM SERUM 3.7 mEq/L (3.5-5.1); SGOT 9 U/L (13-39); SGPT/ALT 6 U/L (7-52); SODIUM SERUM 140 mEq/L (136-145); TOTAL PROTEIN,SERUM 5.6 gm/dL (6.0-8.3); TRIGLYCERIDES 54 mg/dL (<150)
[2018-05-28] MEDS: Venelex 60gm Tube TP SCH (09:12)
[2018-05-28] MEDS: NYSTATIN 100000 UNITS/GM POWD TP SCH ×2 (09:12→17:00)
[2018-05-28] MEDS: Lactobacillus Rhamnosus GG 15 Billion CFU CAP.SPRINK PO SCH (09:12)
[2018-05-28 09:15] LABS: BAND NEUTROPHILE 8 % (0-10); BASOPHIL 0 % (0-3); EOSINOPHIL 3 % (0-5); LYMPHOCYTE 8 % (20-50); MONOCYTE 15 % (2-10); NEUTROPHILS 66 % (40-80)
[2018-05-28 13:13] LABS: CREATININE - SERUM 0.5 mg/dL (0.6-1.2)
--- NOTE | 2018-05-28 16:13 | Infectious Disease Prog Note ---
Infectious Disease Subjective - Review of Systems Service Date: 05/28/18 Subjective: There is no new change, no fever. Infectious Disease Objective - Results Result Diagrams: 05/28/18 07:35 05/28/18 07:35 Recent Labs: Laboratory Last Values WBC 4.5 Th/cmm (4.8-10.8) L 05/28/18 07:35 Corrected WBC (auto) 3.0 Th/cmm (4.8-10.8) L 05/26/18 04:00 RBC 4.42 Mil/cmm (3.80-5.20) 05/28/18 07:35 Hgb 12.4 gm/dL (12-16) 05/28/18 07:35 Hct 37.8 % (41.0-60) L 05/28/18 07:35 MCV 85.7 fl (81-100) 05/28/18 07:35 MCH 28.1 pg (27.0-31.0) 05/28/18 07:35 MCHC Differential 32.8 pg (28.0-36.0) 05/28/18 07:35 RDW 13.0 % (11.5-20.0) 05/28/18 07:35 Plt Count 394 Th/cmm (150-400) 05/28/18 07:35 MPV 6.1 fl 05/28/18 07:35 Add Manual Diff YES 05/28/18 07:35 Neutrophils % EQUIPMENT MANAGER 05/26/18 04:00 Band Neutrophils % 8 % (0-10) 05/28/18 07:35 Lymphocytes % EQUIPMENT MANAGER 05/26/18 04:00 Monocytes % EQUIPMENT MANAGER 05/26/18 04:00 Eosinophils % EQUIPMENT MANAGER 05/26/18 04:00 Basophils % Not Reportable 05/26/18 04:00 Neutrophils (Manual) 66 % (40-80) 05/28/18 07:35 Lymphocytes 8 % (20-50) L 05/28/18 07:35 Monocytes 15 % (2-10) H 05/28/18 07:35 Eosinophils 3 % (0-5) 05/28/18 07:35 Basophils 0 % (0-3) 05/28/18 07:35 Platelet Estimate ADEQUATE (NORMAL) 05/24/18 07:05 PT 10.8 SECONDS (9.5-11.5) 05/23/18 04:30 INR 1.04 (0.5-1.4) 05/23/18 04:30 PTT (Actin FS) 27.4 SECONDS (26.0-38.0) 05/23/18 04:30 Specimen Source Arterial 05/27/18 08:55 Sample Site Right Radial 05/27/18 08:55 pH 7.44 (7.35-7.45) 05/27/18 08:55 pCO2 37.0 mmHg (35.0-45.0) 05/27/18 08:55 pO2 100.0 mmHg (80.0-100.0) 05/27/18 08:55 HCO3 25.8 mEq/L (20.0-26.0) 05/27/18 08:55 Base Excess 1.1 mEq/L (-3.0-3.0) 05/27/18 08:55 O2 Saturation 98.0 % (92.0-100.0) 05/27/18 08:55 Ricky Test Positive 05/27/18 08:55 Vent Rate N/A 05/27/18 08:55 Inspired O2 28 05/27/18 08:55 Tidal Volume N/A 05/27/18 08:55 PEEP N/A 05/27/18 08:55 Pressure (ins/psv/peep) N/A 05/27/18 08:55 Critical Value DM 05/27/18 08:55 Sodium 140 mEq/L (136-145) 05/28/18 07:35 Potassium 3.7 mEq/L (3.5-5.1) 05/28/18 07:35 Chloride 105 mEq/L (98-107) 05/28/18 07:35 Carbon Dioxide 27.5 mEq/L (21.0-31.0) 05/28/18 07:35 Anion Gap 11.2 (7.0-16.0) 05/28/18 07:35 BUN 26 mg/dL (7-25) H 05/28/18 07:35 Creatinine 0.5 mg/dL (0.6-1.2) L 05/28/18 07:35 Est GFR ( Amer) TNP 05/28/18 07:35 Est GFR (Non-Af Amer) TNP 05/28/18 07:35 BUN/Creatinine Ratio 52.0 05/28/18 07:35 Glucose 217 mg/dL (70-105) H 05/28/18 07:35 POC Glucose 222 MG/DL (70 - 105) H 05/28/18 11:48 Plasma/Ser Osmolality 259 mOsmol/kg (280-301) L 05/23/18 09:55 Whole Bld Lactic Acid 0.94 mmol/L (0.60-1.99) 05/22/18 Unknown Calcium 9.1 mg/dL (8.6-10.3) 05/28/18 07:35 Phosphorus 3.0 mg/dL (2.5-5.0) 05/28/18 07:35 Magnesium 1.7 mg/dL (1.9-2.7) L 05/28/18 07:35 Total Bilirubin 0.4 mg/dL (0.3-1.0) 05/28/18 07:35 Direct Bilirubin 0.14 mg/dL (0.0-0.2) 05/24/18 07:05 AST 9 U/L (13-39) L 05/28/18 07:35 ALT 6 U/L (7-52) L 05/28/18 07:35 Alkaline Phosphatase 31 U/L (34-104) L 05/28/18 07:35 Ammonia 46 umol/L (16-53) 05/25/18 04:00 Total Protein 5.6 gm/dL (6.0-8.3) L 05/28/18 07:35 Albumin 2.9 gm/dL (3.7-5.3) L 05/28/18 07:35 Globulin 2.7 gm/dL 05/28/18 07:35 Albumin/Globulin Ratio 1.1 (1.0-1.8) 05/28/18 07:35 Triglycerides 54 mg/dL (<150) 05/28/18 07:35 TSH 3.21 uIU/ml (0.34-5.60) 05/22/18 17:34 Urine Source CLEAN C 05/22/18 18:55 Urine Color YELLOW 05/22/18 18:55 Urine Clarity HAZY (CLEAR) 05/22/18 18:55 Urine pH 6.0 (4.6 - 8.0) 05/22/18 18:55 Ur Specific [place] >= 1.030 (1.005-1.030) 05/22/18 18:55 Urine Protein TRACE mg/dL (NEGATIVE) 05/22/18 18:55 Urine Glucose (UA) 100 mg/dL (NEGATIVE) H 05/22/18 18:55 Urine Ketones 40 mg/dL (NEGATIVE) H 05/22/18 18:55 Urine Blood MODERATE (NEGATIVE) H 05/22/18 18:55 Urine Nitrate POSITIVE (NEGATIVE) H 05/22/18 18:55 Urine Bilirubin NEGATIVE (NEGATIVE) 05/22/18 18:55 Urine Urobilinogen 0.2 E.U./dL (0.2 - 1.0) 05/22/18 18:55 Ur Leukocyte Esterase SMALL (NEGATIVE) H 05/22/18 18:55 Urine RBC 0-2 /hpf (0-5) 05/22/18 18:55 Urine WBC 6-10 /hpf (0-5) H 05/22/18 18:55 Ur Epithelial Cells OCCASIONAL /lpf (FEW) 05/22/18 18:55 Urine Bacteria 2+ /hpf (NONE SEEN) H 05/22/18 18:55 Urine Osmolality 583 mOsmol/kg 05/24/18 06:00 Ur Random Sodium 14 mmol/L 05/24/18 06:00 Vancomycin Trough 13.7 ug/mL (5-10) H 05/25/18 08:00 Valproic Acid 29.3 ug/mL (50.0-100.0) L 05/22/18 17:34 - Physical Exam Vitals and I&O: Vital Signs Temp 97.4 F 05/28/18 12:00 Pulse 90 05/28/18 14:32 Resp 22 05/28/18 14:32 BP 130/85 05/28/18 12:00 Pulse Ox 96 05/28/18 14:32 Intake & Output 05/27/18 05/28/18 05/28/18 18:59 06:59 18:59 Intake Total 1350 704.5 50 Output Total 500 Balance 1350 204.5 50 Weight (lbs) 79.424 kg Intake: Intake, IV Amount 1350 704.5 50 Amino Acids 3% / 1000 Electrolytes 1,000 ml @ 70 mls/hr IV .[id number] [facility] Rx#:[id number] Piperacillin Sodium/ 100 100 50 Tazobact 3.375 gm In Sodium Chloride 0.9% 50 ml @ 100 mls/hr IV Q6H [facility] Rx#:[id number] Sodium Chloride 0.9% 1, 604.5 000 ml @ 30 mls/hr IV . Q24H [facility] Rx#:[id number] Vancomycin HCl 1 gm In 250 Sodium Chloride 0.9% 250 ml @ 165 mls/hr IV Q12H [facility] Rx#:[id number] Output: Gastric Drainage 300 Urine 200 Other: # Bowel Movements 0 Weight Source Bedscale Active Medications: Current Medications Acetaminophen (Tylenol 650mg Supp) 650 mg RC Q4H PRN PRN Reason: PAIN OR TEMP >101 Stop: 07/21/18 22:25 Albuterol/Ipratropium (Duoneb Neb) 3 ml HHN [id number] [facility] Stop: 07/22/18 18:59 Last Admin: 05/28/18 14:32 Dose: 3 ml Bisacodyl (Dulcolax 10 Mg Supp) 10 mg RC DAILY [facility] Stop: 07/22/18 12:14 Last Admin: 05/28/18 08:17 Dose: 10 mg Budesonide (Pulmicort) 0.5 mg HHN BIDRT [facility] Stop: 07/22/18 18:59 Last Admin: 05/28/18 07:09 Dose: 0.5 mg Calamine/Phenol (Calmoseptine) 1 appl TP QID PRN PRN Reason: Skin Irritation Stop: 07/25/18 15:43 Last Admin: 05/26/18 17:23 Dose: 1 appl [place] Oil/Russian Balsam/Trypsin (Venelex) 1 appl TP DAILY [facility] Stop: 07/25/18 15:59 Last Admin: 05/28/18 09:12 Dose: 1 appl Divalproex Sodium (Depakote Dr) 250 mg PO BID [facility]; Protocol Stop: 07/22/18 16:59 Last Admin: 05/28/18 09:11 Dose: Not Given Gabapentin (Neurontin) 300 mg PO TID [facility] Stop: 07/22/18 13:59 Last Admin: 05/28/18 14:03 Dose: Not Given Piperacillin Sod/Tazobactam (Sod 3.375 gm/ Sodium Chloride) 50 mls @ 100 mls/ hr IV Q6H [facility] Stop: 07/22/18 01:59 Last Admin: 05/28/18 14:02 Dose: 100 mls/hr Multivitamins/Minerals 10 ml/Insulin Human Regular 10 units / Dextrose/ Amino Acids/Electrolytes/ Sterile Water 1,710.1 mls @ 70 mls/hr IV .Q24H [facility] Stop: 06/25/18 15:59 Last Admin: 05/27/18 16:30 Dose: 70 mls/hr Sodium Chloride (Nacl 0.9%) 1,000 mls @ 30 mls/hr IV .Q24H [facility] Stop: 07/26/18 10:29 Last Infusion: 05/28/18 06:39 Dose: 30 mls/hr Insulin Aspart (Novolog Insulin Sliding Scale) 0 units SUBQ Q6HR [facility]; Protocol Stop: 07/22/18 11:59 Last Admin: 05/28/18 12:09 Dose: 4 units Ketorolac Tromethamine (Toradol) 15 mg IVP Q6HR PRN PRN Reason: moderate pain Stop: 07/23/18 09:31 Last Admin: 05/27/18 22:59 Dose: 15 mg Lactobacillus Rhamnosus (Culturelle 15b) 1 each PO DAILY [facility] Stop: 07/25/18 08:59 Last Admin: 05/28/18 09:12 Dose: Not Given Lorazepam (Ativan) 0.5 mg IVP Q6HR PRN; Protocol PRN Reason: Agitation Stop: 07/23/18 11:49 Last Admin: 05/27/18 09:51 Dose: 0.5 mg Miscellaneous (Probiotic Screen) 1 ea PRN PRN PRN Reason: PROTOCOL Stop: 07/24/18 14:14 Miscellaneous (Ppn Per Pharmacy) 1 ea PRN PRN PRN Reason: PROTOCOL Stop: 07/25/18 16:42 Morphine Sulfate (Morphine) 2 mg IVP Q3H PRN PRN Reason: Pain (Severe) Stop: 07/21/18 22:22 Last Admin: 05/28/18 11:50 Dose: 2 mg Nystatin (Nystop) 0 units TP BID [facility] Stop: 07/25/18 16:59 Last Admin: 05/28/18 09:12 Dose: 1 units Ondansetron HCl (Zofran) 4 mg IV Q6H PRN PRN Reason: Nausea / Vomiting Stop: 07/21/18 22:24 Last Admin: 12/26/18 11:11 Dose: 4 mg General: no acute distress, well developed, well nourished HEENT: atraumatic, normocephalic, PERRLA, EOMI Neck: supple, no thyromegaly Cardiovascular: S1S2, regular Lungs: clear to auscultation bilaterally, clear to percussion Abdomen: soft, distended, other (ventral hernia), no tender Extremities: no cyanosis, no clubbing, no edema Neurological: awake, alert Skin: other (stage 4 sacral decubitus.) - Procedures Procedures: Procedures Procedure Code Date EMERGENCY DEPT VISIT 51032 02/03/00 IMMOBILIZ/WOUND ATTN NEC 93.59 08/01/01 Infectious Disease Assmt/Plan - Problem List Patient Problems: All Active Problems Bowel obstruction (Acute) K56.609 Bowel obstruction (Acute) K56.609 PERIPHERAL TREMORS WITH DIAPHORESIS (Acute) - Assessment Assessment: 1. Urinary tract infection. 2. Ileus versus small bowel obstruction. 3. Leukocytosis secondary to urinary tract infection and ileus versus small bowel obstruction. 4. Hyponatremia, rule out syndrome of inappropriate antidiuretic hormone. 5. History of psychosis. 6. History of hypertension. - Plan Plan: Continue Zosyn D6/7. Patient is getting transferred to higher level of care. Nutritional Asmnt/Malnutr-PDOC - Dietary Evaluation Malnutrition Findings (Please click <Entered> for more info): Nutritional Asmnt/Malnutrition Start: 05/23/18 16: 41 Text: Status: Complete Freq: Protocol: Document 05/23/18 16:41 [email or web address] (Rec: 05/23/18 16:54 [id number]) Nutritional Asmnt/Malnutrition Patient General Information Nutritional Screening High Risk Consult Diagnosis bowel obstruction Pertinent Medical Hx/Surgical Hx HTN, dyslipidemia, depression, anxiety, impulse disorder Subjective Information Consult received for elevated glucose 249. pt admitted for abdominal pain. Pt seen resting in bed at time of visit. Pt is NPO, NGT on suction. Current Diet Order/ Nutrition Support NPO Pertinent Medications novolot, piperacillin, zofran, piperacillin, nacl Pertinent Labs 05/23 Na 120, Cl 89, Cr 0.5, glucsose 241, alb 3.4 Nutritional Hx/Data Height 1.63 m Height (Calculated Centimeters) 162.6 Current Weight (lbs) 77.111 kg Weight (Calculated Kilograms) 77.1 Weight (Calculated Grams) 79822.7 [place] Body Weight 120 Body Mass Index (BMI) 29.2 Weight Status Overweight GI Symptoms GI Symptoms None Last BM not indicated Difficult in: None Skin Integrity/Comment: ecchymosis Current %PO Negligible < 25% Estimated Nutritional Goals BEE in Kcals: Using Current wt Calories/Kcals/Kg 23-27 Kcals Calculated Protein: Using Current wt Protein g/k.8-1 Protein Calculated 62-77 Fluid: ml [id number] Nutritional Problem 2. Problem Problem altered nutrition related labs Etiology hyperglycemia Signs/Symptoms: glucose 241-249 1. Problem Problem inadequate food intake Etiology GI dysfunction Signs/Symptoms: pt on NPO Malnutrition Alert Is there a minimum of two criteria No selected? Query Text:Check all the applicable criteria. A minimum of two criteria are recommended for diagnosis of either severe or non-severe malnutrition. Malnutrition Related to Morbid Obesity Malnutrition related to morbid obesity No Intervention/Recommendation Comments 1. Monitor NPO status. Recommend clear liquid diet with Ensure Clear TID if diet advanced when medically appropriate 2. Monitor GI, wt, labs and skin integrity 3. F/U as high risk in 2-3 days Expected Outcomes/Goals Expected Outcomes/Goals 1. oral diet initiated in 2-3 days 2. Wt stability, skin to remain intact, labs to approach WNL.
[2018-05-28] MEDS: TPN 8.5%-70% CUSTOM IV SCH (16:48)
--- NOTE | 2018-05-28 17:37 | Progress Notes ---
DATE: 05/28/2018 PROBLEM LIST: 1. Bowel obstruction. 2. Recurrent agitation with shortness of breath. SYMPTOMS: Nil. SUBJECTIVE: The patient is fairly agitated earlier. No respiratory distress, etc. Slightly tachypneic and slightly tachycardic. OBJECTIVE: VITAL SIGNS: Temperature is 97.4. NECK: Veins not visualized. CHEST: Shows occasional coarse rhonchi with diminished air entry. HEART: Regular. ABDOMEN: Soft and nontender. Slightly distended. LABORATORY DATA: The patient's lab studies, white count is 4.5. Electrolytes are okay with BUN is 26. IMPRESSION: The patient is clinically stable respiratory mcqueen, some of the issues with tachypnea and tachycardia, because of agitation and underlying psychological issue. PLANS AND SUGGESTIONS: Continue current treatment as well as other mortality, etc. Care and plan discussed with the nursing staff. JOB# [id number]
[2018-05-28] MEDS: Sodium Chloride 0.9% 1,000 ML IV SCH (21:03)
[2018-05-29] MEDS: INSULIN ASPART SLIDING SCALE 100 UNITS/ML UNIT SUBQ SCH ×4 (01:05→17:42)
[2018-05-29] MEDS: Morphine Sulfate 2 mg/mL 1mL Syr IVP PRN ×4 (01:06→21:43)
--- NOTE | 2018-05-29 05:46 | Progress Notes ---
DATE: PATIENT'S IDENTIFICATION: An 82-year-old female. SUBJECTIVE: The patient is seen and examined. The patient is lying in the bed. The patient is not in acute distress. Discussed with nursing staff about the treatment plan. According to the surgical notes, they will have another surgeon looked at this patient and possible considered ____ surgery in this facility versus higher level based on surgeon's decision. So far, I was unable to get higher level of care at the [facility] or [facility]. The patient remained hemodynamically stable at this time. OBJECTIVE: VITAL SIGNS: Temperature 97.4, pulse is 90, respiratory rate 18, blood pressure 130/85. HEENT: No facial asymmetry. NECK: Supple. No JVD. HEART: Regular. CHEST AND LUNGS: Equal in expansion, no expiratory wheezing. ABDOMEN: Soft. No guarding. No rigidity. Bowel sounds are present. No palpable mass or palpable hernia noted. EXTREMITIES: No edema. CLINICAL IMPRESSION: 1. Small-bowel obstruction. 2. Bilateral pneumonia, improving. 3. Diabetes. 4. Hypertension. 5. Escherichia coli urinary tract infection. PLAN: Surgical treatment plan deferred to surgeon. Meanwhile, continue to provide conservative management with IV antibiotic, diabetes management, nebulizer treatment, general nursing care along with followup on lab and follow up on client service consultant's recommendations. Care plan reviewed and discussed with staff. JOB# [id number]
[2018-05-29 05:51] LABS: ALB/GLOB RATIO 1.1 (1.0-1.8); ALKALINE PHOSPHATASE 35 U/L (34-104); ANION GAP 14.3 (7.0-16.0); BILIRUBIN,TOTAL 0.4 mg/dL (0.3-1.0); BUN - UREA NITROGEN 24 mg/dL (7-25); CALCIUM SERUM 9.2 mg/dL (8.6-10.3); CARBON DIOXIDE 24.4 mEq/L (21.0-31.0); CHLORIDE 106 mEq/L (98-107); CREATININE - SERUM 0.5 mg/dL (0.6-1.2); GLUCOSE 160 mg/dL (70-105); MAGNESIUM 1.8 mg/dL (1.9-2.7); PHOSPHOROUS 2.4 mg/dL (2.5-5.0); POTASSIUM SERUM 3.7 mEq/L (3.5-5.1); SGOT 8 U/L (13-39); SGPT/ALT 6 U/L (7-52); SODIUM SERUM 141 mEq/L (136-145); TOTAL PROTEIN,SERUM 5.7 gm/dL (6.0-8.3)
[2018-05-29] MEDS: Budesonide 0.5 Mg/2 mL Ud HHN SCH ×2 (07:15→18:00)
[2018-05-29] MEDS: Albuterol/Ipratropium Neb 3 ML AERS HHN SCH ×4 (07:33→18:05)
[2018-05-29] MEDS: Venelex 60gm Tube TP SCH (08:40)
[2018-05-29] MEDS: Lactobacillus Rhamnosus GG 15 Billion CFU CAP.SPRINK PO SCH (08:41)
[2018-05-29] MEDS: NYSTATIN 100000 UNITS/GM POWD TP SCH ×2 (08:42→16:19)
[2018-05-29] MEDS ORDERED: Sodium Phosphate 30 MMOLE in Sodium Chloride 0.9% 250 ML IV ONE (09:00)
[2018-05-29] MEDS ORDERED: Potassium Phosphate 15 MMOLE in Sodium Chloride 0.9% 250 ML IV ONE (09:00)
[2018-05-29] MEDS ORDERED: IOHEXOL 300mgI/mL 100 ML VIAL ONE (13:27)
[2018-05-29] MEDS: TPN 8.5%-70% CUSTOM IV SCH (16:16)
--- NOTE | 2018-05-29 20:20 | Progress Notes ---
DATE: 05/29/2018 PULMONARY PROGRESS NOTE PROBLEM LIST: 1. Bowel obstruction. 2. Periodic shortness of breath, probably related to anxiety and slight abdominal distention. SYMPTOMS: The patient is calm sleeping, presumably sedated. No respiratory distress. PHYSICAL EXAMINATION: VITAL SIGNS: Temperature is 97.5, blood pressure is 118/65, saturation is 95 on 2 liters. NECK: Veins not visualized. CHEST: Shows fairly clear without any adventitious breath sounds. HEART: Regular. ABDOMEN: Slightly distended. LABORATORY DATA: Electrolytes are okay with the sugar 160. IMPRESSION: The patient clinically appears to be stable respiratory mcqueen. PLANS AND SUGGESTIONS: Continue current treatment per Dr. Gregory and Dr. Florez. JOB# [id number]
--- NOTE | 2018-05-29 22:40 | GI Progress Note ---
Subjective - Review of Systems Service Date: 05/29/18 Events since last encounter: Pt about the same, moans in pain gets pain medicine Objective - Results Result Diagrams: 05/28/18 07:35 05/29/18 04:30 Recent Labs: Laboratory Last Values WBC 4.5 Th/cmm (4.8-10.8) L 05/28/18 07:35 Corrected WBC (auto) 3.0 Th/cmm (4.8-10.8) L 05/26/18 04:00 RBC 4.42 Mil/cmm (3.80-5.20) 05/28/18 07:35 Hgb 12.4 gm/dL (12-16) 05/28/18 07:35 Hct 37.8 % (41.0-60) L 05/28/18 07:35 MCV 85.7 fl (81-100) 05/28/18 07:35 MCH 28.1 pg (27.0-31.0) 05/28/18 07:35 MCHC Differential 32.8 pg (28.0-36.0) 05/28/18 07:35 RDW 13.0 % (11.5-20.0) 05/28/18 07:35 Plt Count 394 Th/cmm (150-400) 05/28/18 07:35 MPV 6.1 fl 05/28/18 07:35 Add Manual Diff YES 05/28/18 07:35 Neutrophils % SPRING INTERN 05/26/18 04:00 Band Neutrophils % 8 % (0-10) 05/28/18 07:35 Lymphocytes % SPRING INTERN 05/26/18 04:00 Monocytes % SPRING INTERN 05/26/18 04:00 Eosinophils % SPRING INTERN 05/26/18 04:00 Basophils % Not Reportable 05/26/18 04:00 Neutrophils (Manual) 66 % (40-80) 05/28/18 07:35 Lymphocytes 8 % (20-50) L 05/28/18 07:35 Monocytes 15 % (2-10) H 05/28/18 07:35 Eosinophils 3 % (0-5) 05/28/18 07:35 Basophils 0 % (0-3) 05/28/18 07:35 Platelet Estimate ADEQUATE (NORMAL) 05/24/18 07:05 PT 10.8 SECONDS (9.5-11.5) 05/23/18 04:30 INR 1.04 (0.5-1.4) 05/23/18 04:30 PTT (Actin FS) 27.4 SECONDS (26.0-38.0) 05/23/18 04:30 Specimen Source Arterial 05/27/18 08:55 Sample Site Right Radial 05/27/18 08:55 pH 7.44 (7.35-7.45) 05/27/18 08:55 pCO2 37.0 mmHg (35.0-45.0) 05/27/18 08:55 pO2 100.0 mmHg (80.0-100.0) 05/27/18 08:55 HCO3 25.8 mEq/L (20.0-26.0) 05/27/18 08:55 Base Excess 1.1 mEq/L (-3.0-3.0) 05/27/18 08:55 O2 Saturation 98.0 % (92.0-100.0) 05/27/18 08:55 Ricky Test Positive 05/27/18 08:55 Vent Rate N/A 05/27/18 08:55 Inspired O2 28 05/27/18 08:55 Tidal Volume N/A 05/27/18 08:55 PEEP N/A 05/27/18 08:55 Pressure (ins/psv/peep) N/A 05/27/18 08:55 Critical Value DM 05/27/18 08:55 Sodium 141 mEq/L (136-145) 05/29/18 04:30 Potassium 3.7 mEq/L (3.5-5.1) 05/29/18 04:30 Chloride 106 mEq/L (98-107) 05/29/18 04:30 Carbon Dioxide 24.4 mEq/L (21.0-31.0) 05/29/18 04:30 Anion Gap 14.3 (7.0-16.0) 05/29/18 04:30 BUN 24 mg/dL (7-25) 05/29/18 04:30 Creatinine 0.5 mg/dL (0.6-1.2) L 05/29/18 04:30 Est GFR ( Amer) TNP 05/29/18 04:30 Est GFR (Non-Af Amer) TNP 05/29/18 04:30 BUN/Creatinine Ratio 48.0 05/29/18 04:30 Glucose 160 mg/dL (70-105) H 05/29/18 04:30 POC Glucose 214 MG/DL (70 - 105) H 05/29/18 17:22 Plasma/Ser Osmolality 259 mOsmol/kg (280-301) L 05/23/18 09:55 Whole Bld Lactic Acid 0.94 mmol/L (0.60-1.99) 05/22/18 Unknown Calcium 9.2 mg/dL (8.6-10.3) 05/29/18 04:30 Phosphorus 2.4 mg/dL (2.5-5.0) L 05/29/18 04:30 Magnesium 1.8 mg/dL (1.9-2.7) L 05/29/18 04:30 Total Bilirubin 0.4 mg/dL (0.3-1.0) 05/29/18 04:30 Direct Bilirubin 0.14 mg/dL (0.0-0.2) 05/24/18 07:05 AST 8 U/L (13-39) L 05/29/18 04:30 ALT 6 U/L (7-52) L 05/29/18 04:30 Alkaline Phosphatase 35 U/L (34-104) 05/29/18 04:30 Ammonia 46 umol/L (16-53) 05/25/18 04:00 Total Protein 5.7 gm/dL (6.0-8.3) L 05/29/18 04:30 Albumin 3.0 gm/dL (3.7-5.3) L 05/29/18 04:30 Globulin 2.7 gm/dL 05/29/18 04:30 Albumin/Globulin Ratio 1.1 (1.0-1.8) 05/29/18 04:30 Triglycerides 54 mg/dL (<150) 05/28/18 07:35 TSH 3.21 uIU/ml (0.34-5.60) 05/22/18 17:34 Urine Source CLEAN C 05/22/18 18:55 Urine Color YELLOW 05/22/18 18:55 Urine Clarity HAZY (CLEAR) 05/22/18 18:55 Urine pH 6.0 (4.6 - 8.0) 05/22/18 18:55 Ur Specific [place] >= 1.030 (1.005-1.030) 05/22/18 18:55 Urine Protein TRACE mg/dL (NEGATIVE) 05/22/18 18:55 Urine Glucose (UA) 100 mg/dL (NEGATIVE) H 05/22/18 18:55 Urine Ketones 40 mg/dL (NEGATIVE) H 05/22/18 18:55 Urine Blood MODERATE (NEGATIVE) H 05/22/18 18:55 Urine Nitrate POSITIVE (NEGATIVE) H 05/22/18 18:55 Urine Bilirubin NEGATIVE (NEGATIVE) 05/22/18 18:55 Urine Urobilinogen 0.2 E.U./dL (0.2 - 1.0) 05/22/18 18:55 Ur Leukocyte Esterase SMALL (NEGATIVE) H 05/22/18 18:55 Urine RBC 0-2 /hpf (0-5) 05/22/18 18:55 Urine WBC 6-10 /hpf (0-5) H 05/22/18 18:55 Ur Epithelial Cells OCCASIONAL /lpf (FEW) 05/22/18 18:55 Urine Bacteria 2+ /hpf (NONE SEEN) H 05/22/18 18:55 Urine Osmolality 583 mOsmol/kg 05/24/18 06:00 Ur Random Sodium 14 mmol/L 05/24/18 06:00 Vancomycin Trough 13.7 ug/mL (5-10) H 05/25/18 08:00 Valproic Acid 29.3 ug/mL (50.0-100.0) L 05/22/18 17:34 - Physical Exam Vitals and I&O: Vital Signs Temp 97.1 F 05/29/18 20:00 Pulse 99 05/29/18 20:00 Resp 27 05/29/18 20:00 BP 116/69 05/29/18 20:00 Pulse Ox 95 05/29/18 20:00 Intake & Output 05/29/18 05/29/18 05/30/18 06:59 18:59 06:59 Intake Total 1335.5 1996.7 50 Output Total 450 760 Balance 885.5 1237.667 50 Weight (lbs) 79.424 kg 80.087 kg Intake: Intake, IV Amount 495.5 1996.7 50 Multivitamin Inj 10 ml 1642.667 Insulin Human Regular 10 units In Dextrose 70% 500 ml In Amino Acids 8.5% 500 ml In Water, Sterile 700 ml @ 70 mls/hr IV . Q24H [facility] Rx#:[id number] Piperacillin Sodium/ 100 100 50 Tazobact 3.375 gm In Sodium Chloride 0.9% 50 ml @ 100 mls/hr IV Q6H [facility] Rx#:[id number] Potassium Phosphate 15 255 mmole In Sodium Chloride 0.9% 250 ml @ 42.5 mls/hr IV X1 ONE Rx#:[id number] Sodium Chloride 0.9% 1, 395.5 000 ml @ 30 mls/hr IV . Q24H [facility] Rx#:[id number] Oral 0 Blood Product 840 Output: Gastric Drainage 500 Urine 450 260 Other: # Bowel Movements 0 0 Weight Source Bedscale Bedscale Active Medications: Current Medications Acetaminophen (Tylenol 650mg Supp) 650 mg RC Q4H PRN PRN Reason: PAIN OR TEMP >101 Stop: 07/21/18 22:25 Albuterol/Ipratropium (Duoneb Neb) 3 ml HHN [id number] [facility] Stop: 07/22/18 18:59 Last Admin: 05/29/18 18:05 Dose: 3 ml Bisacodyl (Dulcolax 10 Mg Supp) 10 mg RC DAILY [facility] Stop: 07/22/18 12:14 Last Admin: 05/29/18 08:19 Dose: 10 mg Budesonide (Pulmicort) 0.5 mg HHN BIDRT [facility] Stop: 07/22/18 18:59 Last Admin: 05/29/18 18:00 Dose: 0.5 mg Calamine/Phenol (Calmoseptine) 1 appl TP QID PRN PRN Reason: Skin Irritation Stop: 07/25/18 15:43 Last Admin: 05/26/18 17:23 Dose: 1 appl [place] Oil/Ivorian Balsam/Trypsin (Venelex) 1 appl TP DAILY [facility] Stop: 07/25/18 15:59 Last Admin: 05/29/18 08:40 Dose: 1 appl Divalproex Sodium (Depakote Dr) 250 mg PO BID [facility]; Protocol Stop: 07/22/18 16:59 Last Admin: 05/29/18 16:19 Dose: Not Given Gabapentin (Neurontin) 300 mg PO TID [facility] Stop: 07/22/18 13:59 Last Admin: 05/29/18 20:43 Dose: Not Given Piperacillin Sod/Tazobactam (Sod 3.375 gm/ Sodium Chloride) 50 mls @ 100 mls/ hr IV Q6H [facility] Stop: 07/22/18 01:59 Last Infusion: 05/29/18 21:25 Dose: Infused Multivitamins/Minerals 10 ml/Insulin Human Regular 10 units / Dextrose/ Amino Acids/Electrolytes/ Sterile Water 1,710.1 mls @ 70 mls/hr IV .Q24H [facility] Stop: 06/25/18 15:59 Last Admin: 05/29/18 16:16 Dose: 70 mls/hr Sodium Chloride (Nacl 0.9%) 1,000 mls @ 30 mls/hr IV .Q24H [facility] Stop: 07/26/18 10:29 Last Admin: 05/28/18 21:03 Dose: 30 mls/hr Insulin Aspart (Novolog Insulin Sliding Scale) 0 units SUBQ Q6HR [facility]; Protocol Stop: 07/22/18 11:59 Last Admin: 05/29/18 17:42 Dose: 4 units Lactobacillus Rhamnosus (Culturelle 15b) 1 each PO DAILY [facility] Stop: 07/25/18 08:59 Last Admin: 05/29/18 08:41 Dose: Not Given Lorazepam (Ativan) 0.5 mg IVP Q6HR PRN; Protocol PRN Reason: Agitation Stop: 07/23/18 11:49 Last Admin: 05/29/18 08:15 Dose: 0.5 mg Miscellaneous (Probiotic Screen) 1 [facility] PRN PRN PRN Reason: PROTOCOL Stop: 07/24/18 14:14 Miscellaneous (Ppn Per Pharmacy) 1 [facility] PRN PRN PRN Reason: PROTOCOL Stop: 07/25/18 16:42 Morphine Sulfate (Morphine) 2 mg IVP Q3H PRN PRN Reason: Pain (Severe) Stop: 07/21/18 22:22 Last Admin: 05/29/18 21:43 Dose: 2 mg Nystatin (Nystop) 0 units TP BID [facility] Stop: 07/25/18 16:59 Last Admin: 05/29/18 16:19 Dose: 100,000 units Ondansetron HCl (Zofran) 4 mg IV Q6H PRN PRN Reason: Nausea / Vomiting Stop: 07/21/18 22:24 Last Admin: 05/25/18 11:11 Dose: 4 mg General: Cooperative, Mild distress HEENT: Atraumatic, PERRLA, EOMI Neck: Supple Cardiovascular: Regular rate, Normal S1, Normal S2 Lungs: Clear to auscultation, Normal air movement Abdomen: Bowel sounds, Tender, Distended - Procedures Procedures: Procedures Procedure Code Date EMERGENCY DEPT VISIT 35734 02/03/00 IMMOBILIZ/WOUND ATTN NEC 93.59 08/01/01 Assessment/Plan - Problem List Patient Problems: All Active Problems Bowel obstruction (Acute) K56.609 Bowel obstruction (Acute) K56.609 PERIPHERAL TREMORS WITH DIAPHORESIS (Acute) - Assessment Assessment: 1. Bowel obstruction 2. Herniated bowel 3. Probable hiatal hernia 4. Pneumonia -Pt about the same. WBC count trended down, but on bs abx; difficult to assess patient's pain due to psychosis or from bowel obstruction. Small bowel series shows obstruction, minimal NG output currently. Plan is for repeat CT scan to see if any worsening signs of incarceration; patient is high risk, risk and benefit discussion of surgery with family and surgery: will defer any surgical management and necessity of surgery and urgency to surgical team at this time. -From GI standpoint, continue with NG tube to LIS, supportive care, monitor and correct electrolytes, check lactic acid level -Probable hiatal hernia with coiling of NG tube, no plans for any endoscopy or any indication for endoscopy at this time -Will defer surgical management to surgery at this time
--- NOTE | 2018-05-30 00:30 | Progress Notes ---
DATE: 05/29/2018 IDENTIFICATION: An 82-year-old female. SUBJECTIVE: The patient seen and examined. The patient is lying in the bed. The patient has a significant decrease NG output for the last 24 hours. The patient also had a bowel movement seen by surgeon today and according to Dr. Feldman shows the patient does not need any emergency surgery at this time. PHYSICAL EXAMINATION: VITAL SIGNS: Temperature 97.9, pulse is 100, respiratory rate 18, blood pressure 130/70. HEENT: No facial asymmetry. NECK: Supple, no JVD. HEART: Regular. CHEST: Lung equal in expansion, no expiratory wheezing. ABDOMEN: Soft, palpable ventral hernia noted. EXTREMITIES: No edema. AVAILABLE DIAGNOSTIC DATA: Sodium 141, potassium 3.7, chloride 106, ____ BUN and creatinine is 24 and 0.5, magnesium 1.8, phosphorus 2.4, albumin of 3.0. CLINICAL IMPRESSION: 1. Small-bowel obstruction, improving slowly. 2. Escherichia coli urinary tract infection. 3. Electrolyte imbalance. 4. Diabetes mellitus. 5. Hypertension. 6. Dementia. 7. Psychotic disorder. PLAN: The patient is to have electrolyte to be corrected with PPN. CT scan of the abdomen and pelvis has been requested by Surgery. We will wait for the report. The patient will have continuous cardiac monitoring as well. We will put the patient on telemetry status as well. We will continue to follow workforce consultant recommendations. Care plan reviewed and discussed with staff. JOB# [id number]
[2018-05-30] MEDS: INSULIN ASPART SLIDING SCALE 100 UNITS/ML UNIT SUBQ SCH ×5 (00:55→23:42)
[2018-05-30] MEDS: Morphine Sulfate 2 mg/mL 1mL Syr IVP PRN ×3 (04:59→20:02)
[2018-05-30 06:14] LABS: ALKALINE PHOSPHATASE 36 U/L (34-104); ANION GAP 14.5 (7.0-16.0); BILIRUBIN,TOTAL 0.5 mg/dL (0.3-1.0); BUN - UREA NITROGEN 30 mg/dL (7-25); CALCIUM SERUM 9.2 mg/dL (8.6-10.3); CARBON DIOXIDE 23.4 mEq/L (21.0-31.0); CHLORIDE 106 mEq/L (98-107); CREATININE - SERUM 0.6 mg/dL (0.6-1.2); GLUCOSE 248 mg/dL (70-105); MAGNESIUM 1.9 mg/dL (1.9-2.7); PHOSPHOROUS 3.2 mg/dL (2.5-5.0); POTASSIUM SERUM 3.9 mEq/L (3.5-5.1); SGOT 10 U/L (13-39); SGPT/ALT 8 U/L (7-52); SODIUM SERUM 140 mEq/L (136-145)
[2018-05-30] MEDS: Budesonide 0.5 Mg/2 mL Ud HHN SCH ×2 (06:45→18:46)
[2018-05-30] MEDS: Albuterol/Ipratropium Neb 3 ML AERS HHN SCH ×4 (06:45→18:46)
--- NOTE | 2018-05-30 09:00 | Diagnostic Imaging Report ---
CT abdomen and pelvis with intravenous contrast Indication: Abdominal hernia with incarceration Comparison: CT abdomen and pelvis on 05/22/2018, Technique: Axial images were obtained from the lung bases to the bilateral proximal femurs with IV contrast. Coronal reconstructions were made. total DLP: 837, CTDI16.8 FINDINGS: Bibasilar consolidative changes and passive atelectatic changes are noted. There is a moderate to large retrocardiac hiatal hernia containing an NG tube. Exam is limited due to motion. No focal hepatic or obvious splenic lesions. Assessment of the pancreas is limited on this exam. Pancreatic gland atrophy is noted. There is hypertrophy of the right kidney. A 2 cm renal left is noted. No hydronephrosis. Assessment for renal stones limited due to contrast administration. Jim catheter seen within collapsed and a bladder. There appears to be evidence of previous ventral hernia repair. There is a very large ventral hernia containing multiple loops of small and large bowel with possible additional smaller hernias seen in this region along the lower abdomen and pelvic region. There is also hernia along the right groin region with partial herniation of a bowel loop and herniation of fat (image 33, series 3). Dilated loops of bowel are seen with multiple air-fluid levels. Inflammatory changes of the abdominal wall are noted. No free fluid or free air. Gallstones are noted with distended gallbladder. Diffuse atherosclerosis is noted. Advanced degenerative changes of the spine are noted with advanced compression fracture of L1 with 3 mm posterior retropulsion. Degenerative changes of the pelvis are noted. IMPRESSION: Large anterior abdominal wall hernias, asymmetric to the right side with possible smaller additional hernias including a hernia more inferiorly along the right groin region with herniation of fat and a bowel loop best seen. There are multiple distended loops of bowel with small bowel loops with air-fluid levels most concerning for small bowel obstruction possible strangulation from the hernia. There is also evidence of previous postsurgical changes of anterior abdominal wall with previous hernia repair. Please correlate with clinical findings. Copious stool. Diverticulosis. Moderate to large hiatal hernia containing an NG tube. Distended gallbladder with gallstones. Diffuse subcutaneous edema. Bibasilar passive atelectatic and consolidative changes and pneumonia of the lung bases. Atherosclerotic vascular disease. Advanced compression fracture of L1 with 3 mm posterior retropulsion.
[2018-05-30] MEDS: Venelex 60gm Tube TP SCH (10:03)
[2018-05-30] MEDS: Lactobacillus Rhamnosus GG 15 Billion CFU CAP.SPRINK PO SCH (10:04)
[2018-05-30] MEDS: NYSTATIN 100000 UNITS/GM POWD TP SCH ×2 (10:04→16:48)
[2018-05-30] MEDS: Sodium Chloride 0.9% 1,000 ML IV SCH (15:00)
--- NOTE | 2018-05-30 15:37 | Infectious Disease Prog Note ---
Infectious Disease Subjective - Review of Systems Service Date: 05/30/18 Subjective: There is no new change, no fever. Infectious Disease Objective - Results Result Diagrams: 05/28/18 07:35 05/30/18 04:55 Recent Labs: Laboratory Last Values WBC 4.5 Th/cmm (4.8-10.8) L 05/28/18 07:35 Corrected WBC (auto) 3.0 Th/cmm (4.8-10.8) L 05/26/18 04:00 RBC 4.42 Mil/cmm (3.80-5.20) 05/28/18 07:35 Hgb 12.4 gm/dL (12-16) 05/28/18 07:35 Hct 37.8 % (41.0-60) L 05/28/18 07:35 MCV 85.7 fl (81-100) 05/28/18 07:35 MCH 28.1 pg (27.0-31.0) 05/28/18 07:35 MCHC Differential 32.8 pg (28.0-36.0) 05/28/18 07:35 RDW 13.0 % (11.5-20.0) 05/28/18 07:35 Plt Count 394 Th/cmm (150-400) 05/28/18 07:35 MPV 6.1 fl 05/28/18 07:35 Add Manual Diff YES 05/28/18 07:35 Neutrophils % LIFE SUPPORT TECHNICIAN 05/26/18 04:00 Band Neutrophils % 8 % (0-10) 05/28/18 07:35 Lymphocytes % LIFE SUPPORT TECHNICIAN 05/26/18 04:00 Monocytes % LIFE SUPPORT TECHNICIAN 05/26/18 04:00 Eosinophils % LIFE SUPPORT TECHNICIAN 05/26/18 04:00 Basophils % Not Reportable 05/26/18 04:00 Neutrophils (Manual) 66 % (40-80) 05/28/18 07:35 Lymphocytes 8 % (20-50) L 05/28/18 07:35 Monocytes 15 % (2-10) H 05/28/18 07:35 Eosinophils 3 % (0-5) 05/28/18 07:35 Basophils 0 % (0-3) 05/28/18 07:35 Platelet Estimate ADEQUATE (NORMAL) 05/24/18 07:05 PT 10.8 SECONDS (9.5-11.5) 05/23/18 04:30 INR 1.04 (0.5-1.4) 05/23/18 04:30 PTT (Actin FS) 27.4 SECONDS (26.0-38.0) 05/23/18 04:30 Specimen Source Arterial 05/27/18 08:55 Sample Site Right Radial 05/27/18 08:55 pH 7.44 (7.35-7.45) 05/27/18 08:55 pCO2 37.0 mmHg (35.0-45.0) 05/27/18 08:55 pO2 100.0 mmHg (80.0-100.0) 05/27/18 08:55 HCO3 25.8 mEq/L (20.0-26.0) 05/27/18 08:55 Base Excess 1.1 mEq/L (-3.0-3.0) 05/27/18 08:55 O2 Saturation 98.0 % (92.0-100.0) 05/27/18 08:55 Ricky Test Positive 05/27/18 08:55 Vent Rate N/A 05/27/18 08:55 Inspired O2 28 05/27/18 08:55 Tidal Volume N/A 05/27/18 08:55 PEEP N/A 05/27/18 08:55 Pressure (ins/psv/peep) N/A 05/27/18 08:55 Critical Value DM 05/27/18 08:55 Sodium 140 mEq/L (136-145) 05/30/18 04:55 Potassium 3.9 mEq/L (3.5-5.1) 05/30/18 04:55 Chloride 106 mEq/L (98-107) 05/30/18 04:55 Carbon Dioxide 23.4 mEq/L (21.0-31.0) 05/30/18 04:55 Anion Gap 14.5 (7.0-16.0) 05/30/18 04:55 BUN 30 mg/dL (7-25) H 05/30/18 04:55 Creatinine 0.6 mg/dL (0.6-1.2) 05/30/18 04:55 Est GFR ( Amer) TNP 05/30/18 04:55 Est GFR (Non-Af Amer) TNP 05/30/18 04:55 BUN/Creatinine Ratio 50.0 05/30/18 04:55 Glucose 248 mg/dL (70-105) H 05/30/18 04:55 POC Glucose 278 MG/DL (70 - 105) H 05/30/18 12:23 Plasma/Ser Osmolality 259 mOsmol/kg (280-301) L 05/23/18 09:55 Whole Bld Lactic Acid 1.23 mmol/L (0.60-1.99) 05/29/18 22:45 Calcium 9.2 mg/dL (8.6-10.3) 05/30/18 04:55 Phosphorus 3.2 mg/dL (2.5-5.0) 05/30/18 04:55 Magnesium 1.9 mg/dL (1.9-2.7) 05/30/18 04:55 Total Bilirubin 0.5 mg/dL (0.3-1.0) 05/30/18 04:55 Direct Bilirubin 0.14 mg/dL (0.0-0.2) 05/24/18 07:05 AST 10 U/L (13-39) L 05/30/18 04:55 ALT 8 U/L (7-52) 05/30/18 04:55 Alkaline Phosphatase 36 U/L (34-104) 05/30/18 04:55 Ammonia 46 umol/L (16-53) 05/25/18 04:00 Total Protein 6.0 gm/dL (6.0-8.3) 05/30/18 04:55 Albumin 3.0 gm/dL (3.7-5.3) L 05/30/18 04:55 Globulin 3.0 gm/dL 05/30/18 04:55 Albumin/Globulin Ratio 1.0 (1.0-1.8) 05/30/18 04:55 Triglycerides 54 mg/dL (<150) 05/28/18 07:35 TSH 3.21 uIU/ml (0.34-5.60) 05/22/18 17:34 Urine Source CLEAN C 05/22/18 18:55 Urine Color YELLOW 05/22/18 18:55 Urine Clarity HAZY (CLEAR) 05/22/18 18:55 Urine pH 6.0 (4.6 - 8.0) 05/22/18 18:55 Ur Specific [place] >= 1.030 (1.005-1.030) 05/22/18 18:55 Urine Protein TRACE mg/dL (NEGATIVE) 05/22/18 18:55 Urine Glucose (UA) 100 mg/dL (NEGATIVE) H 05/22/18 18:55 Urine Ketones 40 mg/dL (NEGATIVE) H 05/22/18 18:55 Urine Blood MODERATE (NEGATIVE) H 05/22/18 18:55 Urine Nitrate POSITIVE (NEGATIVE) H 05/22/18 18:55 Urine Bilirubin NEGATIVE (NEGATIVE) 05/22/18 18:55 Urine Urobilinogen 0.2 E.U./dL (0.2 - 1.0) 05/22/18 18:55 Ur Leukocyte Esterase SMALL (NEGATIVE) H 05/22/18 18:55 Urine RBC 0-2 /hpf (0-5) 05/22/18 18:55 Urine WBC 6-10 /hpf (0-5) H 05/22/18 18:55 Ur Epithelial Cells OCCASIONAL /lpf (FEW) 05/22/18 18:55 Urine Bacteria 2+ /hpf (NONE SEEN) H 05/22/18 18:55 Urine Osmolality 583 mOsmol/kg 05/24/18 06:00 Ur Random Sodium 14 mmol/L 05/24/18 06:00 Vancomycin Trough 13.7 ug/mL (5-10) H 05/25/18 08:00 Valproic Acid 29.3 ug/mL (50.0-100.0) L 05/22/18 17:34 - Physical Exam Vitals and I&O: Vital Signs Temp 98.1 F 05/30/18 12:00 Pulse 105 05/30/18 15:04 Resp 29 05/30/18 15:04 BP 113/60 05/30/18 12:00 Pulse Ox 96 05/30/18 15:04 Intake & Output 05/29/18 05/30/18 05/30/18 18:59 06:59 18:59 Intake Total 940 50 Output Total 760 400 Balance 1237.667 540 50 Weight (lbs) 80.087 kg 81.737 kg Intake: Intake, IV Amount 100 50 Multivitamin Inj 10 ml 1642.667 Insulin Human Regular 10 units In Dextrose 70% 500 ml In Amino Acids 8.5% 500 ml In Water, Sterile 700 ml @ 70 mls/hr IV . Q24H [facility] Rx#:[id number] Piperacillin Sodium/ 100 100 50 Tazobact 3.375 gm In Sodium Chloride 0.9% 50 ml @ 100 mls/hr IV Q6H [facility] Rx#:[id number] Potassium Phosphate 15 255 mmole In Sodium Chloride 0.9% 250 ml @ 42.5 mls/hr IV X1 ONE Rx#:[id number] Oral 0 0 TPN/PPN 840 Output: Gastric Drainage 500 100 Urine 260 300 Other: # Bowel Movements 0 0 Weight Source Bedscale Bedscale Active Medications: Current Medications Acetaminophen (Tylenol 650mg Supp) 650 mg RC Q4H PRN PRN Reason: PAIN OR TEMP >101 Stop: 07/21/18 22:25 Albuterol/Ipratropium (Duoneb Neb) 3 ml HHN [id number] [facility] Stop: 07/22/18 18:59 Last Admin: 05/30/18 15:04 Dose: 3 ml Bisacodyl (Dulcolax 10 Mg Supp) 10 mg RC DAILY [facility] Stop: 07/22/18 12:14 Last Admin: 05/30/18 08:09 Dose: 10 mg Budesonide (Pulmicort) 0.5 mg HHN BIDRT [facility] Stop: 07/22/18 18:59 Last Admin: 05/30/18 06:45 Dose: 0.5 mg Calamine/Phenol (Calmoseptine) 1 appl TP QID PRN PRN Reason: Skin Irritation Stop: 07/25/18 15:43 Last Admin: 05/26/18 17:23 Dose: 1 appl [place] Oil/German Balsam/Trypsin (Venelex) 1 appl TP DAILY [facility] Stop: 07/25/18 15:59 Last Admin: 05/30/18 10:03 Dose: 1 appl Divalproex Sodium (Depakote Dr) 250 mg PO BID [facility]; Protocol Stop: 07/22/18 16:59 Last Admin: 05/30/18 11:13 Dose: Not Given Gabapentin (Neurontin) 300 mg PO TID [facility] Stop: 07/22/18 13:59 Last Admin: 05/30/18 15:09 Dose: Not Given Multivitamins/Minerals 10 ml/Insulin Human Regular 10 units / Dextrose/ Amino Acids/Electrolytes/ Sterile Water 1,710.1 mls @ 70 mls/hr IV .Q24H [facility] Stop: 06/25/18 15:59 Last Admin: 05/29/18 16:16 Dose: 70 mls/hr Sodium Chloride (Nacl 0.9%) 1,000 mls @ 30 mls/hr IV .Q24H [facility] Stop: 07/26/18 10:29 Last Admin: 05/28/18 21:03 Dose: 30 mls/hr Insulin Aspart (Novolog Insulin Sliding Scale) 0 units SUBQ Q6HR [facility]; Protocol Stop: 07/22/18 11:59 Last Admin: 05/30/18 12:29 Dose: 6 units Lactobacillus Rhamnosus (Culturelle 15b) 1 each PO DAILY [facility] Stop: 07/25/18 08:59 Last Admin: 05/30/18 10:04 Dose: Not Given Lorazepam (Ativan) 0.5 mg IVP Q6HR PRN; Protocol PRN Reason: Agitation Stop: 07/23/18 11:49 Last Admin: 05/30/18 01:00 Dose: 0.5 mg Miscellaneous (Probiotic Screen) 1 ea PRN PRN PRN Reason: PROTOCOL Stop: 07/24/18 14:14 Miscellaneous (Ppn Per Pharmacy) 1 ea PRN PRN PRN Reason: PROTOCOL Stop: 07/25/18 16:42 Morphine Sulfate (Morphine) 2 mg IVP Q3H PRN PRN Reason: Pain (Severe) Stop: 07/21/18 22:22 Last Admin: 05/30/18 14:11 Dose: 2 mg Nystatin (Nystop) 0 units TP BID [facility] Stop: 07/25/18 16:59 Last Admin: 05/30/18 10:04 Dose: 1 units Ondansetron HCl (Zofran) 4 mg IV Q6H PRN PRN Reason: Nausea / Vomiting Stop: 07/21/18 22:24 Last Admin: 05/25/18 11:11 Dose: 4 mg General: no acute distress, well developed, well nourished HEENT: atraumatic, normocephalic, PERRLA, EOMI Neck: supple, no thyromegaly Cardiovascular: S1S2, regular Lungs: clear to auscultation bilaterally, clear to percussion Abdomen: soft, distended, other (ventral hernia), no tender Extremities: no cyanosis, no clubbing, no edema Neurological: awake, alert, oriented Skin: intact - Procedures Procedures: Procedures Procedure Code Date EMERGENCY DEPT VISIT 38664 02/03/00 IMMOBILIZ/WOUND ATTN NEC 93.59 08/01/01 Infectious Disease Assmt/Plan - Problem List Patient Problems: All Active Problems Bowel obstruction (Acute) K56.609 Bowel obstruction (Acute) K56.609 PERIPHERAL TREMORS WITH DIAPHORESIS (Acute) - Assessment Assessment: 1. Urinary tract infection. treated. 2. Ileus versus small bowel obstruction. 3. Leukocytosis improved, secondary to urinary tract infection and ileus versus small bowel obstruction. 4. Hyponatremia, rule out syndrome of inappropriate antidiuretic hormone. 5. History of psychosis. 6. History of hypertension. - Plan Plan: [place]. Patient is getting transferred to higher level of care. Nutritional Asmnt/Malnutr-PDOC - Dietary Evaluation Malnutrition Findings (Please click <Entered> for more info): Nutritional Asmnt/Malnutrition Start: 05/23/18 16: 41 Text: Status: Complete Freq: Protocol: Document 05/23/18 16:41 LCHENG (Rec: 05/23/18 16:54 LCHENG [id number]) Nutritional Asmnt/Malnutrition Patient General Information Nutritional Screening High Risk Consult Diagnosis bowel obstruction Pertinent Medical Hx/Surgical Hx HTN, dyslipidemia, depression, anxiety, impulse disorder Subjective Information Consult received for elevated glucose 249. pt admitted for abdominal pain. Pt seen resting in bed at time of visit. Pt is NPO, NGT on suction. Current Diet Order/ Nutrition Support NPO Pertinent Medications novolot, piperacillin, zofran, piperacillin, nacl Pertinent Labs 05/23 Na 120, Cl 89, Cr 0.5, glucsose 241, alb 3.4 Nutritional Hx/Data Height 1.63 m Height (Calculated Centimeters) 162.6 Current Weight (lbs) 77.111 kg Weight (Calculated Kilograms) 77.1 Weight (Calculated Grams) 90234.7 [place] Body Weight 120 Body Mass Index (BMI) 29.2 Weight Status Overweight GI Symptoms GI Symptoms None Last BM not indicated Difficult in: None Skin Integrity/Comment: ecchymosis Current %PO Negligible < 25% Estimated Nutritional Goals BEE in Kcals: Using Current wt Calories/Kcals/Kg 23-27 Kcals Calculated 8058-6795 Protein: Using Current wt Protein g/k.8-1 Protein Calculated 62-77 Fluid: ml 2872-1020 Nutritional Problem 2. Problem Problem altered nutrition related labs Etiology hyperglycemia Signs/Symptoms: glucose 241-249 1. Problem Problem inadequate food intake Etiology GI dysfunction Signs/Symptoms: pt on NPO Malnutrition Alert Is there a minimum of two criteria No selected? Query Text:Check all the applicable criteria. A minimum of two criteria are recommended for diagnosis of either severe or non-severe malnutrition. Malnutrition Related to Morbid Obesity Malnutrition related to morbid obesity No Intervention/Recommendation Comments 1. Monitor NPO status. Recommend clear liquid diet with Ensure Clear TID if diet advanced when medically appropriate 2. Monitor GI, wt, labs and skin integrity 3. F/U as high risk in 2-3 days Expected Outcomes/Goals Expected Outcomes/Goals 1. oral diet initiated in 2-3 days 2. Wt stability, skin to remain intact, labs to approach WNL.
[2018-05-30] MEDS: TPN 8.5%-70% CUSTOM IV SCH (16:45)
--- NOTE | 2018-05-30 18:07 | GI Progress Note ---
Subjective - Review of Systems Service Date: 05/30/18 Events since last encounter: Pt about the same , noted CT findings Objective - Results Result Diagrams: 05/28/18 07:35 05/30/18 04:55 Recent Labs: Laboratory Last Values WBC 4.5 Th/cmm (4.8-10.8) L 05/28/18 07:35 Corrected WBC (auto) 3.0 Th/cmm (4.8-10.8) L 05/26/18 04:00 RBC 4.42 Mil/cmm (3.80-5.20) 05/28/18 07:35 Hgb 12.4 gm/dL (12-16) 05/28/18 07:35 Hct 37.8 % (41.0-60) L 05/28/18 07:35 MCV 85.7 fl (81-100) 05/28/18 07:35 MCH 28.1 pg (27.0-31.0) 05/28/18 07:35 MCHC Differential 32.8 pg (28.0-36.0) 05/28/18 07:35 RDW 13.0 % (11.5-20.0) 05/28/18 07:35 Plt Count 394 Th/cmm (150-400) 05/28/18 07:35 MPV 6.1 fl 05/28/18 07:35 Add Manual Diff YES 05/28/18 07:35 Neutrophils % HAND THERMAL CUTTER 05/26/18 04:00 Band Neutrophils % 8 % (0-10) 05/28/18 07:35 Lymphocytes % HAND THERMAL CUTTER 05/26/18 04:00 Monocytes % HAND THERMAL CUTTER 05/26/18 04:00 Eosinophils % HAND THERMAL CUTTER 05/26/18 04:00 Basophils % Not Reportable 05/26/18 04:00 Neutrophils (Manual) 66 % (40-80) 05/28/18 07:35 Lymphocytes 8 % (20-50) L 05/28/18 07:35 Monocytes 15 % (2-10) H 05/28/18 07:35 Eosinophils 3 % (0-5) 05/28/18 07:35 Basophils 0 % (0-3) 05/28/18 07:35 Platelet Estimate ADEQUATE (NORMAL) 05/24/18 07:05 PT 10.8 SECONDS (9.5-11.5) 05/23/18 04:30 INR 1.04 (0.5-1.4) 05/23/18 04:30 PTT (Actin FS) 27.4 SECONDS (26.0-38.0) 05/23/18 04:30 Specimen Source Arterial 05/27/18 08:55 Sample Site Right Radial 05/27/18 08:55 pH 7.44 (7.35-7.45) 05/27/18 08:55 pCO2 37.0 mmHg (35.0-45.0) 05/27/18 08:55 pO2 100.0 mmHg (80.0-100.0) 05/27/18 08:55 HCO3 25.8 mEq/L (20.0-26.0) 05/27/18 08:55 Base Excess 1.1 mEq/L (-3.0-3.0) 05/27/18 08:55 O2 Saturation 98.0 % (92.0-100.0) 05/27/18 08:55 Ricky Test Positive 05/27/18 08:55 Vent Rate N/A 05/27/18 08:55 Inspired O2 28 05/27/18 08:55 Tidal Volume N/A 05/27/18 08:55 PEEP N/A 05/27/18 08:55 Pressure (ins/psv/peep) N/A 05/27/18 08:55 Critical Value DM 05/27/18 08:55 Sodium 140 mEq/L (136-145) 05/30/18 04:55 Potassium 3.9 mEq/L (3.5-5.1) 05/30/18 04:55 Chloride 106 mEq/L (98-107) 05/30/18 04:55 Carbon Dioxide 23.4 mEq/L (21.0-31.0) 05/30/18 04:55 Anion Gap 14.5 (7.0-16.0) 05/30/18 04:55 BUN 30 mg/dL (7-25) H 05/30/18 04:55 Creatinine 0.6 mg/dL (0.6-1.2) 05/30/18 04:55 Est GFR ( Amer) TNP 05/30/18 04:55 Est GFR (Non-Af Amer) TNP 05/30/18 04:55 BUN/Creatinine Ratio 50.0 05/30/18 04:55 Glucose 248 mg/dL (70-105) H 05/30/18 04:55 POC Glucose 227 MG/DL (70 - 105) H 05/30/18 17:08 Plasma/Ser Osmolality 259 mOsmol/kg (280-301) L 05/23/18 09:55 Whole Bld Lactic Acid 1.23 mmol/L (0.60-1.99) 05/29/18 22:45 Calcium 9.2 mg/dL (8.6-10.3) 05/30/18 04:55 Phosphorus 3.2 mg/dL (2.5-5.0) 05/30/18 04:55 Magnesium 1.9 mg/dL (1.9-2.7) 05/30/18 04:55 Total Bilirubin 0.5 mg/dL (0.3-1.0) 05/30/18 04:55 Direct Bilirubin 0.14 mg/dL (0.0-0.2) 05/24/18 07:05 AST 10 U/L (13-39) L 05/30/18 04:55 ALT 8 U/L (7-52) 05/30/18 04:55 Alkaline Phosphatase 36 U/L (34-104) 05/30/18 04:55 Ammonia 46 umol/L (16-53) 05/25/18 04:00 Total Protein 6.0 gm/dL (6.0-8.3) 05/30/18 04:55 Albumin 3.0 gm/dL (3.7-5.3) L 05/30/18 04:55 Globulin 3.0 gm/dL 05/30/18 04:55 Albumin/Globulin Ratio 1.0 (1.0-1.8) 05/30/18 04:55 Triglycerides 54 mg/dL (<150) 05/28/18 07:35 TSH 3.21 uIU/ml (0.34-5.60) 05/22/18 17:34 Urine Source CLEAN C 05/22/18 18:55 Urine Color YELLOW 05/22/18 18:55 Urine Clarity HAZY (CLEAR) 05/22/18 18:55 Urine pH 6.0 (4.6 - 8.0) 05/22/18 18:55 Ur Specific [place] >= 1.030 (1.005-1.030) 05/22/18 18:55 Urine Protein TRACE mg/dL (NEGATIVE) 05/22/18 18:55 Urine Glucose (UA) 100 mg/dL (NEGATIVE) H 05/22/18 18:55 Urine Ketones 40 mg/dL (NEGATIVE) H 05/22/18 18:55 Urine Blood MODERATE (NEGATIVE) H 05/22/18 18:55 Urine Nitrate POSITIVE (NEGATIVE) H 05/22/18 18:55 Urine Bilirubin NEGATIVE (NEGATIVE) 05/22/18 18:55 Urine Urobilinogen 0.2 E.U./dL (0.2 - 1.0) 05/22/18 18:55 Ur Leukocyte Esterase SMALL (NEGATIVE) H 05/22/18 18:55 Urine RBC 0-2 /hpf (0-5) 05/22/18 18:55 Urine WBC 6-10 /hpf (0-5) H 05/22/18 18:55 Ur Epithelial Cells OCCASIONAL /lpf (FEW) 05/22/18 18:55 Urine Bacteria 2+ /hpf (NONE SEEN) H 05/22/18 18:55 Urine Osmolality 583 mOsmol/kg 05/24/18 06:00 Ur Random Sodium 14 mmol/L 05/24/18 06:00 Vancomycin Trough 13.7 ug/mL (5-10) H 05/25/18 08:00 Valproic Acid 29.3 ug/mL (50.0-100.0) L 05/22/18 17:34 - Physical Exam Vitals and I&O: Vital Signs Temp 98.1 F 05/30/18 16:00 Pulse 111 05/30/18 16:00 Resp 35 05/30/18 16:00 BP 106/53 05/30/18 16:00 Pulse Ox 95 05/30/18 16:00 Intake & Output 05/29/18 05/30/18 05/30/18 18:59 06:59 18:59 Intake Total 5654.392 0530 1810.1 Output Total 760 400 550 Balance 2203.107 2661 1260.1 Weight (lbs) 80.087 kg 81.737 kg 81.737 kg Intake: Intake, IV Amount 7390.832 8001 1810.1 Multivitamin Inj 10 ml 2691.595 3451.1 Insulin Human Regular 10 units In Dextrose 70% 500 ml In Amino Acids 8.5% 500 ml In Water, Sterile 700 ml @ 70 mls/hr IV . Q24H [facility] Rx#:[id number] Piperacillin Sodium/ 100 100 100 Tazobact 3.375 gm In Sodium Chloride 0.9% 50 ml @ 100 mls/hr IV Q6H [facility] Rx#:[id number] Potassium Phosphate 15 255 mmole In Sodium Chloride 0.9% 250 ml @ 42.5 mls/hr IV X1 ONE Rx#:[id number] Sodium Chloride 0.9% 1, 1000 000 ml @ 30 mls/hr IV . Q24H [facility] Rx#:[id number] Oral 0 0 TPN/PPN 840 Output: Gastric Drainage 500 100 250 Urine 260 300 300 Other: # Bowel Movements 0 0 0 Weight Source Bedscale Bedscale Bedscale Active Medications: Current Medications Acetaminophen (Tylenol 650mg Supp) 650 mg RC Q4H PRN PRN Reason: PAIN OR TEMP >101 Stop: 07/21/18 22:25 Albuterol/Ipratropium (Duoneb Neb) 3 ml HHN [id number] [facility] Stop: 07/22/18 18:59 Last Admin: 05/30/18 15:04 Dose: 3 ml Bisacodyl (Dulcolax 10 Mg Supp) 10 mg RC DAILY [facility] Stop: 07/22/18 12:14 Last Admin: 05/30/18 08:09 Dose: 10 mg Budesonide (Pulmicort) 0.5 mg HHN BIDRT [facility] Stop: 07/22/18 18:59 Last Admin: 05/30/18 06:45 Dose: 0.5 mg Calamine/Phenol (Calmoseptine) 1 appl TP QID PRN PRN Reason: Skin Irritation Stop: 07/25/18 15:43 Last Admin: 05/26/18 17:23 Dose: 1 appl [place] Oil/[place] Balsam/Trypsin (Venelex) 1 appl TP DAILY [facility] Stop: 07/25/18 15:59 Last Admin: 05/30/18 10:03 Dose: 1 appl Divalproex Sodium (Depakote Dr) 250 mg PO BID [facility]; Protocol Stop: 07/22/18 16:59 Last Admin: 05/30/18 16:47 Dose: Not Given Gabapentin (Neurontin) 300 mg PO TID [facility] Stop: 07/22/18 13:59 Last Admin: 05/30/18 15:09 Dose: Not Given Multivitamins/Minerals 10 ml/Insulin Human Regular 10 units / Dextrose/ Amino Acids/Electrolytes/ Sterile Water 1,710.1 mls @ 70 mls/hr IV .Q24H [facility] Stop: 06/25/18 15:59 Last Admin: 05/30/18 16:45 Dose: 70 mls/hr Sodium Chloride (Nacl 0.9%) 1,000 mls @ 30 mls/hr IV .Q24H [facility] Stop: 07/26/18 10:29 Last Admin: 05/30/18 15:00 Dose: 30 mls/hr Insulin Aspart (Novolog Insulin Sliding Scale) 0 units SUBQ Q6HR [facility]; Protocol Stop: 07/22/18 11:59 Last Admin: 05/30/18 17:31 Dose: 4 units Lactobacillus Rhamnosus (Culturelle 15b) 1 each PO DAILY [facility] Stop: 07/25/18 08:59 Last Admin: 05/30/18 10:04 Dose: Not Given Lorazepam (Ativan) 0.5 mg IVP Q6HR PRN; Protocol PRN Reason: Agitation Stop: 07/23/18 11:49 Last Admin: 05/30/18 01:00 Dose: 0.5 mg Miscellaneous (Probiotic Screen) 1 ea PRN PRN PRN Reason: PROTOCOL Stop: 07/24/18 14:14 Miscellaneous (Ppn Per Pharmacy) 1 [facility] PRN PRN PRN Reason: PROTOCOL Stop: 07/25/18 16:42 Morphine Sulfate (Morphine) 2 mg IVP Q3H PRN PRN Reason: Pain (Severe) Stop: 07/21/18 22:22 Last Admin: 05/30/18 14:11 Dose: 2 mg Nystatin (Nystop) 0 units TP BID [facility] Stop: 07/25/18 16:59 Last Admin: 05/30/18 16:48 Dose: 1 units Ondansetron HCl (Zofran) 4 mg IV Q6H PRN PRN Reason: Nausea / Vomiting Stop: 07/21/18 22:24 Last Admin: 05/25/18 11:11 Dose: 4 mg General: Cooperative, Mild distress HEENT: Atraumatic, PERRLA, EOMI Neck: Supple Cardiovascular: Regular rate, Normal S1, Normal S2 Lungs: Clear to auscultation, Normal air movement Abdomen: Bowel sounds, Tender, Distended - Procedures Procedures: Procedures Procedure Code Date EMERGENCY DEPT VISIT 99612 02/03/00 IMMOBILIZ/WOUND ATTN NEC 93.59 08/01/01 Assessment/Plan - Problem List Patient Problems: All Active Problems Bowel obstruction (Acute) K56.609 Bowel obstruction (Acute) K56.609 PERIPHERAL TREMORS WITH DIAPHORESIS (Acute) - Assessment Assessment: 1. Bowel obstruction 2. Herniated bowel 3. Probable hiatal hernia 4. Pneumonia -SBO, multiple abdominal wall hernias with probable strangulation. Defer planning and urgency of surgery to Dr Reyes -From GI, continue with NG tube to LIS, supportive care -Probable hiatal hernia with coiling of NG tube, no plans for any endoscopy or any indication for endoscopy at this time
[2018-05-31 04:20] LABS: WHITE BLOOD COUNT 8.1 Th/cmm (4.8-10.8)
[2018-05-31 04:34] LABS: HEMATOCRIT 37.2 % (41.0-60); HEMOGLOBIN 11.9 gm/dL (12-16); MEAN CELL VOLUME 84.7 fl (81-100); MEAN CORPUSCULAR HEMOGLOBIN 27.1 pg (27.0-31.0); MEAN PLATELET VOLUME 6.7 fl; PLATELET COUNT 373 Th/cmm (150-400); RED BLOOD COUNT 4.39 Mil/cmm (3.80-5.20)
[2018-05-31] MEDS: Morphine Sulfate 2 mg/mL 1mL Syr IVP PRN ×4 (04:40→20:57)
[2018-05-31] MEDS: INSULIN ASPART SLIDING SCALE 100 UNITS/ML UNIT SUBQ SCH ×4 (05:44→23:47)
[2018-05-31 05:51] LABS: BAND NEUTROPHILE 5 % (0-10); NEUTROPHILS 73 % (40-80)
[2018-05-31 05:52] LABS: EOSINOPHIL 2 % (0-5); LYMPHOCYTE 10 % (20-50); MONOCYTE 10 % (2-10); PLATELET ESTIMATE ADEQUATE (NORMAL)
[2018-05-31 06:01] LABS: ALB/GLOB RATIO 0.9 (1.0-1.8); ALBUMIN 2.7 gm/dL (3.7-5.3); ALKALINE PHOSPHATASE 37 U/L (34-104); ANION GAP 15.3 (7.0-16.0); BILIRUBIN,TOTAL 0.5 mg/dL (0.3-1.0); BUN - UREA NITROGEN 38 mg/dL (7-25); CALCIUM SERUM 8.4 mg/dL (8.6-10.3); CARBON DIOXIDE 22.7 mEq/L (21.0-31.0); CHLORIDE 109 mEq/L (98-107); CREATININE - SERUM 0.6 mg/dL (0.6-1.2); GLUCOSE 201 mg/dL (70-105); MAGNESIUM 2.2 mg/dL (1.9-2.7); PHOSPHOROUS 3.3 mg/dL (2.5-5.0); SGOT 14 U/L (13-39); SGPT/ALT 11 U/L (7-52); SODIUM SERUM 143 mEq/L (136-145); TOTAL PROTEIN,SERUM 5.7 gm/dL (6.0-8.3); TRIGLYCERIDES 74 mg/dL (<150)
[2018-05-31] MEDS: Albuterol/Ipratropium Neb 3 ML AERS HHN SCH ×4 (07:11→19:43)
[2018-05-31] MEDS: Budesonide 0.5 Mg/2 mL Ud HHN SCH ×2 (07:28→19:46)
--- NOTE | 2018-05-31 07:45 | Progress Notes ---
DATE: PATIENT'S IDENTIFICATION: An 82-year-old female. The patient is seen and examined. The patient is lying in the bed. The patient has no new event. Medication administration record is reviewed. PHYSICAL EXAMINATION: On today's exam, VITAL SIGNS: Temperature 97.6, pulse 112, respiratory rate is 20, blood pressure 120/65. HEENT: No facial asymmetry. Nasogastric tube noted. NECK: Supple, no JVD. HEART: Regular. CHEST AND LUNGS: Equal in expansion with expiratory wheezing. ABDOMEN: Distended with palpable ventral hernia with intestine noted. Bowel sounds are sluggishly present. EXTREMITIES: No edema. AVAILABLE LABORATORY AND DIAGNOSTIC DATA: Sodium 140, potassium 3.9, chloride 106, CO2 is 23.4, BUN and creatinine is 13 and 0.6, albumin 3.0. CT scan of abdomen and pelvis performed on 05/29/2018 remarkable for large anterior abdominal wall hernia along with multiple distended loops of bowel and with small bowel loops with air fluid level concerning with small-bowel obstruction with possible strangulation from the hernia. There is also evidence of previous postsurgical changes noted. Copious amount of stool, diverticulosis, large hiatal hernia, distended gallbladder with gallstone, diffuse subcutaneous edema also noted as well, advanced compression fracture of L3 with 3 mm posterior retropulsion also noted. CLINICAL IMPRESSION: 1. Persistent small-bowel obstruction. 2. Cholelithiasis with distended gallbladder. 3. Diabetes mellitus. 4. Pneumonitis. 5. Psychotic disorder. 6. Electrolyte imbalance. 7. Degenerative joint disease. 8. Urinary tract infection. 9. Osteoporosis. PLAN: Discussed with the surgeon about persistent small-bowel obstruction finding on CAT scan as well as with the patient's son on a decision about treatment plan for mother's care. According to the surgeon, he will talk to the patient's son again today and make decision about surgery versus non-surgery considering the patient has a complex medical problem and the patient is very high risk for surgery, which include postoperative respiratory failure as well. The patient currently receiving TPN at this time. We will continue as prescribed along with IV antibiotic. Discussed with the adult protective caseworker about my conversation with surgeon. At this time, I have also informed her in case the patient's family wants to have surgery and may need higher level of care, look for higher level as well out of this area including tertiary care [place], [facility] or [facility] or [facility]. Meanwhile, continue to provide the same treatment plan and follow treasury consultant's recommendations. JOB# [id number]
[2018-05-31] MEDS: NYSTATIN 100000 UNITS/GM POWD TP SCH ×2 (09:10→16:24)
[2018-05-31] MEDS: Venelex 60gm Tube TP SCH (09:11)
[2018-05-31] MEDS: Lactobacillus Rhamnosus GG 15 Billion CFU CAP.SPRINK PO SCH (09:12)
--- NOTE | 2018-05-31 11:46 | GI Progress Note ---
Subjective - Review of Systems Service Date: 05/31/18 Events since last encounter: Pt c/o of significant pain Objective - Results Result Diagrams: 05/31/18 04:10 05/31/18 04:10 Recent Labs: Laboratory Last Values WBC 8.1 Th/cmm (4.8-10.8) 05/31/18 04:10 Corrected WBC (auto) 3.0 Th/cmm (4.8-10.8) L 05/26/18 04:00 RBC 4.39 Mil/cmm (3.80-5.20) 05/31/18 04:10 Hgb 11.9 gm/dL (12-16) L 05/31/18 04:10 Hct 37.2 % (41.0-60) L 05/31/18 04:10 MCV 84.7 fl (81-100) 05/31/18 04:10 MCH 27.1 pg (27.0-31.0) 05/31/18 04:10 MCHC Differential 32.0 pg (28.0-36.0) 05/31/18 04:10 RDW 13.0 % (11.5-20.0) 05/31/18 04:10 Plt Count 373 Th/cmm (150-400) 05/31/18 04:10 MPV 6.7 fl 05/31/18 04:10 Add Manual Diff YES 05/31/18 04:10 Neutrophils % [employer] 05/26/18 04:00 Band Neutrophils % 5 % (0-10) 05/31/18 04:10 Lymphocytes % [employer] 05/26/18 04:00 Monocytes % [employer] 05/26/18 04:00 Eosinophils % [employer] 05/26/18 04:00 Basophils % Not Reportable 05/26/18 04:00 Neutrophils (Manual) 73 % (40-80) 05/31/18 04:10 Lymphocytes 10 % (20-50) L 05/31/18 04:10 Monocytes 10 % (2-10) 05/31/18 04:10 Eosinophils 2 % (0-5) 05/31/18 04:10 Basophils 0 % (0-3) 05/28/18 07:35 Platelet Estimate ADEQUATE (NORMAL) 05/31/18 04:10 PT 10.8 SECONDS (9.5-11.5) 05/23/18 04:30 INR 1.04 (0.5-1.4) 05/23/18 04:30 PTT (Actin FS) 27.4 SECONDS (26.0-38.0) 05/23/18 04:30 Specimen Source Arterial 05/27/18 08:55 Sample Site Right Radial 05/27/18 08:55 pH 7.44 (7.35-7.45) 05/27/18 08:55 pCO2 37.0 mmHg (35.0-45.0) 05/27/18 08:55 pO2 100.0 mmHg (80.0-100.0) 05/27/18 08:55 HCO3 25.8 mEq/L (20.0-26.0) 05/27/18 08:55 Base Excess 1.1 mEq/L (-3.0-3.0) 05/27/18 08:55 O2 Saturation 98.0 % (92.0-100.0) 05/27/18 08:55 Ricky Test Positive 05/27/18 08:55 Vent Rate N/A 05/27/18 08:55 Inspired O2 28 05/27/18 08:55 Tidal Volume N/A 05/27/18 08:55 PEEP N/A 05/27/18 08:55 Pressure (ins/psv/peep) N/A 05/27/18 08:55 Critical Value DM 05/27/18 08:55 Sodium 143 mEq/L (136-145) 05/31/18 04:10 Potassium 4.0 mEq/L (3.5-5.1) 05/31/18 04:10 Chloride 109 mEq/L (98-107) H 05/31/18 04:10 Carbon Dioxide 22.7 mEq/L (21.0-31.0) 05/31/18 04:10 Anion Gap 15.3 (7.0-16.0) 05/31/18 04:10 BUN 38 mg/dL (7-25) H 05/31/18 04:10 Creatinine 0.6 mg/dL (0.6-1.2) 05/31/18 04:10 Est GFR ( Amer) TNP 05/31/18 04:10 Est GFR (Non-Af Amer) TNP 05/31/18 04:10 BUN/Creatinine Ratio 63.3 05/31/18 04:10 Glucose 201 mg/dL (70-105) H 05/31/18 04:10 POC Glucose 192 MG/DL (70 - 105) H 05/31/18 05:34 Plasma/Ser Osmolality 259 mOsmol/kg (280-301) L 05/23/18 09:55 Whole Bld Lactic Acid 1.23 mmol/L (0.60-1.99) 05/29/18 22:45 Calcium 8.4 mg/dL (8.6-10.3) L 05/31/18 04:10 Phosphorus 3.3 mg/dL (2.5-5.0) 05/31/18 04:10 Magnesium 2.2 mg/dL (1.9-2.7) 05/31/18 04:10 Total Bilirubin 0.5 mg/dL (0.3-1.0) 05/31/18 04:10 Direct Bilirubin 0.14 mg/dL (0.0-0.2) 05/24/18 07:05 AST 14 U/L (13-39) 05/31/18 04:10 ALT 11 U/L (7-52) 05/31/18 04:10 Alkaline Phosphatase 37 U/L (34-104) 05/31/18 04:10 Ammonia 46 umol/L (16-53) 05/25/18 04:00 Total Protein 5.7 gm/dL (6.0-8.3) L 05/31/18 04:10 Albumin 2.7 gm/dL (3.7-5.3) L 05/31/18 04:10 Globulin 3.0 gm/dL 05/31/18 04:10 Albumin/Globulin Ratio 0.9 (1.0-1.8) L 05/31/18 04:10 Triglycerides 74 mg/dL (<150) 05/31/18 04:10 TSH 3.21 uIU/ml (0.34-5.60) 05/22/18 17:34 Urine Source CLEAN C 05/22/18 18:55 Urine Color YELLOW 05/22/18 18:55 Urine Clarity HAZY (CLEAR) 05/22/18 18:55 Urine pH 6.0 (4.6 - 8.0) 05/22/18 18:55 Ur Specific [place] >= 1.030 (1.005-1.030) 05/22/18 18:55 Urine Protein TRACE mg/dL (NEGATIVE) 05/22/18 18:55 Urine Glucose (UA) 100 mg/dL (NEGATIVE) H 05/22/18 18:55 Urine Ketones 40 mg/dL (NEGATIVE) H 05/22/18 18:55 Urine Blood MODERATE (NEGATIVE) H 05/22/18 18:55 Urine Nitrate POSITIVE (NEGATIVE) H 05/22/18 18:55 Urine Bilirubin NEGATIVE (NEGATIVE) 05/22/18 18:55 Urine Urobilinogen 0.2 E.U./dL (0.2 - 1.0) 05/22/18 18:55 Ur Leukocyte Esterase SMALL (NEGATIVE) H 05/22/18 18:55 Urine RBC 0-2 /hpf (0-5) 05/22/18 18:55 Urine WBC 6-10 /hpf (0-5) H 05/22/18 18:55 Ur Epithelial Cells OCCASIONAL /lpf (FEW) 05/22/18 18:55 Urine Bacteria 2+ /hpf (NONE SEEN) H 05/22/18 18:55 Urine Osmolality 583 mOsmol/kg 05/24/18 06:00 Ur Random Sodium 14 mmol/L 05/24/18 06:00 Vancomycin Trough 13.7 ug/mL (5-10) H 05/25/18 08:00 Valproic Acid 29.3 ug/mL (50.0-100.0) L 05/22/18 17:34 - Physical Exam Vitals and I&O: Vital Signs Temp 98.7 F 05/31/18 08:00 Pulse 108 05/31/18 08:00 Resp 17 05/31/18 08:00 BP 122/59 05/31/18 08:00 Pulse Ox 96 05/31/18 08:00 Intake & Output 05/30/18 05/31/18 05/31/18 18:59 06:59 18:59 Intake Total 1810.1 1377.5 Output Total 550 1150 Balance 1260.1 227.5 Weight (lbs) 81.737 kg 81.647 kg Intake: Intake, IV Amount 1810.1 1377.5 Multivitamin Inj 10 ml 1710.1 927.5 Insulin Human Regular 10 units In Dextrose 70% 500 ml In Amino Acids 8.5% 500 ml In Water, Sterile 700 ml @ 70 mls/hr IV . Q24H [facility] Rx#:[id number] Piperacillin Sodium/ 100 Tazobact 3.375 gm In Sodium Chloride 0.9% 50 ml @ 100 mls/hr IV Q6H [facility] Rx#:[id number] Sodium Chloride 0.9% 1, 450 000 ml @ 30 mls/hr IV . Q24H [facility] Rx#:[id number] Output: Gastric Drainage 250 800 Urine 300 350 Other: # Bowel Movements 0 Weight Source Bedscale Bedscale Active Medications: Current Medications Acetaminophen (Tylenol 650mg Supp) 650 mg RC Q4H PRN PRN Reason: PAIN OR TEMP >101 Stop: 07/21/18 22:25 Albuterol/Ipratropium (Duoneb Neb) 3 ml HHN [id number] [facility] Stop: 07/22/18 18:59 Last Admin: 05/31/18 07:11 Dose: 3 ml Bisacodyl (Dulcolax 10 Mg Supp) 10 mg RC DAILY [facility] Stop: 07/22/18 12:14 Last Admin: 05/31/18 09:10 Dose: 10 mg Budesonide (Pulmicort) 0.5 mg HHN BIDRT [facility] Stop: 07/22/18 18:59 Last Admin: 05/31/18 07:28 Dose: 0.5 mg Calamine/Phenol (Calmoseptine) 1 appl TP QID PRN PRN Reason: Skin Irritation Stop: 07/25/18 15:43 Last Admin: 05/26/18 17:23 Dose: 1 appl [place] Oil/[place] Balsam/Trypsin (Venelex) 1 appl TP DAILY [facility] Stop: 07/25/18 15:59 Last Admin: 05/31/18 09:11 Dose: 1 appl Divalproex Sodium (Depakote Dr) 250 mg PO BID [facility]; Protocol Stop: 07/22/18 16:59 Last Admin: 05/31/18 09:12 Dose: Not Given Gabapentin (Neurontin) 300 mg PO TID [facility] Stop: 07/22/18 13:59 Last Admin: 05/31/18 09:12 Dose: Not Given Multivitamins/Minerals 10 ml/Insulin Human Regular 10 units / Dextrose/ Amino Acids/Electrolytes/ Sterile Water 1,710.1 mls @ 70 mls/hr IV .Q24H [facility] Stop: 06/25/18 15:59 Last Infusion: 05/31/18 06:00 Dose: 70 mls/hr Sodium Chloride (Nacl 0.9%) 1,000 mls @ 30 mls/hr IV .Q24H [facility] Stop: 07/26/18 10:29 Last Infusion: 05/31/18 06:00 Dose: 30 mls/hr Insulin Aspart (Novolog Insulin Sliding Scale) 0 units SUBQ Q6HR [facility]; Protocol Stop: 07/22/18 11:59 Last Admin: 05/31/18 05:44 Dose: 2 units Lactobacillus Rhamnosus (Culturelle 15b) 1 each PO DAILY [facility] Stop: 07/25/18 08:59 Last Admin: 05/31/18 09:12 Dose: Not Given Lorazepam (Ativan) 0.5 mg IVP Q6HR PRN; Protocol PRN Reason: Agitation Stop: 07/23/18 11:49 Last Admin: 05/31/18 09:10 Dose: 0.5 mg Miscellaneous (Probiotic Screen) 1 [facility] PRN PRN PRN Reason: PROTOCOL Stop: 07/24/18 14:14 Miscellaneous (Ppn Per Pharmacy) 1 [facility] PRN PRN PRN Reason: PROTOCOL Stop: 07/25/18 16:42 Morphine Sulfate (Morphine) 2 mg IVP Q3H PRN PRN Reason: Pain (Severe) Stop: 07/21/18 22:22 Last Admin: 05/31/18 11:41 Dose: 2 mg Nystatin (Nystop) 0 units TP BID [facility] Stop: 07/25/18 16:59 Last Admin: 05/31/18 09:10 Dose: 100,000 units Ondansetron HCl (Zofran) 4 mg IV Q6H PRN PRN Reason: Nausea / Vomiting Stop: 07/21/18 22:24 Last Admin: 05/25/18 11:11 Dose: 4 mg General: Cooperative, Mild distress HEENT: Atraumatic, PERRLA, EOMI Neck: Supple Cardiovascular: Regular rate, Normal S1, Normal S2 Lungs: Clear to auscultation, Normal air movement Abdomen: Bowel sounds, Tender, Distended - Procedures Procedures: Procedures Procedure Code Date EMERGENCY DEPT VISIT 41838 02/03/00 IMMOBILIZ/WOUND ATTN NEC 93.59 08/01/01 Assessment/Plan - Problem List Patient Problems: All Active Problems Bowel obstruction (Acute) K56.609 Bowel obstruction (Acute) K56.609 PERIPHERAL TREMORS WITH DIAPHORESIS (Acute) - Assessment Assessment: 1. Bowel obstruction 2. Herniated bowel 3. Probable hiatal hernia 4. Pneumonia -SBO, multiple abdominal wall hernias with probable strangulation. Per Dr Reyes note, discussed with son and plan is for palliative approach -Probable hiatal hernia with coiling of NG tube, no plans for any endoscopy or any indication for endoscopy at this time -consider d/c ng tube if plan is for palliative care -will follow
--- NOTE | 2018-05-31 13:24 | Infectious Disease Prog Note ---
Infectious Disease Subjective - Review of Systems Service Date: 05/31/18 Subjective: There is no new change, no fever. Infectious Disease Objective - Results Result Diagrams: 05/31/18 04:10 05/31/18 04:10 Recent Labs: Laboratory Last Values WBC 8.1 Th/cmm (4.8-10.8) 05/31/18 04:10 Corrected WBC (auto) 3.0 Th/cmm (4.8-10.8) L 05/26/18 04:00 RBC 4.39 Mil/cmm (3.80-5.20) 05/31/18 04:10 Hgb 11.9 gm/dL (12-16) L 05/31/18 04:10 Hct 37.2 % (41.0-60) L 05/31/18 04:10 MCV 84.7 fl (81-100) 05/31/18 04:10 MCH 27.1 pg (27.0-31.0) 05/31/18 04:10 MCHC Differential 32.0 pg (28.0-36.0) 05/31/18 04:10 RDW 13.0 % (11.5-20.0) 05/31/18 04:10 Plt Count 373 Th/cmm (150-400) 05/31/18 04:10 MPV 6.7 fl 05/31/18 04:10 Add Manual Diff YES 05/31/18 04:10 Neutrophils % [employer] 05/26/18 04:00 Band Neutrophils % 5 % (0-10) 05/31/18 04:10 Lymphocytes % [employer] 05/26/18 04:00 Monocytes % [employer] 05/26/18 04:00 Eosinophils % [employer] 05/26/18 04:00 Basophils % Not Reportable 05/26/18 04:00 Neutrophils (Manual) 73 % (40-80) 05/31/18 04:10 Lymphocytes 10 % (20-50) L 05/31/18 04:10 Monocytes 10 % (2-10) 05/31/18 04:10 Eosinophils 2 % (0-5) 05/31/18 04:10 Basophils 0 % (0-3) 05/28/18 07:35 Platelet Estimate ADEQUATE (NORMAL) 05/31/18 04:10 PT 10.8 SECONDS (9.5-11.5) 05/23/18 04:30 INR 1.04 (0.5-1.4) 05/23/18 04:30 PTT (Actin FS) 27.4 SECONDS (26.0-38.0) 05/23/18 04:30 Specimen Source Arterial 05/27/18 08:55 Sample Site Right Radial 05/27/18 08:55 pH 7.44 (7.35-7.45) 05/27/18 08:55 pCO2 37.0 mmHg (35.0-45.0) 05/27/18 08:55 pO2 100.0 mmHg (80.0-100.0) 05/27/18 08:55 HCO3 25.8 mEq/L (20.0-26.0) 05/27/18 08:55 Base Excess 1.1 mEq/L (-3.0-3.0) 05/27/18 08:55 O2 Saturation 98.0 % (92.0-100.0) 05/27/18 08:55 Ricky Test Positive 05/27/18 08:55 Vent Rate N/A 05/27/18 08:55 Inspired O2 28 05/27/18 08:55 Tidal Volume N/A 05/27/18 08:55 PEEP N/A 05/27/18 08:55 Pressure (ins/psv/peep) N/A 05/27/18 08:55 Critical Value DM 05/27/18 08:55 Sodium 143 mEq/L (136-145) 05/31/18 04:10 Potassium 4.0 mEq/L (3.5-5.1) 05/31/18 04:10 Chloride 109 mEq/L (98-107) H 05/31/18 04:10 Carbon Dioxide 22.7 mEq/L (21.0-31.0) 05/31/18 04:10 Anion Gap 15.3 (7.0-16.0) 05/31/18 04:10 BUN 38 mg/dL (7-25) H 05/31/18 04:10 Creatinine 0.6 mg/dL (0.6-1.2) 05/31/18 04:10 Est GFR ( Amer) TNP 05/31/18 04:10 Est GFR (Non-Af Amer) TNP 05/31/18 04:10 BUN/Creatinine Ratio 63.3 05/31/18 04:10 Glucose 201 mg/dL (70-105) H 05/31/18 04:10 POC Glucose 242 MG/DL (70 - 105) H 05/31/18 11:53 Plasma/Ser Osmolality 259 mOsmol/kg (280-301) L 05/23/18 09:55 Whole Bld Lactic Acid 1.23 mmol/L (0.60-1.99) 05/29/18 22:45 Calcium 8.4 mg/dL (8.6-10.3) L 05/31/18 04:10 Phosphorus 3.3 mg/dL (2.5-5.0) 05/31/18 04:10 Magnesium 2.2 mg/dL (1.9-2.7) 05/31/18 04:10 Total Bilirubin 0.5 mg/dL (0.3-1.0) 05/31/18 04:10 Direct Bilirubin 0.14 mg/dL (0.0-0.2) 05/24/18 07:05 AST 14 U/L (13-39) 05/31/18 04:10 ALT 11 U/L (7-52) 05/31/18 04:10 Alkaline Phosphatase 37 U/L (34-104) 05/31/18 04:10 Ammonia 46 umol/L (16-53) 05/25/18 04:00 Total Protein 5.7 gm/dL (6.0-8.3) L 05/31/18 04:10 Albumin 2.7 gm/dL (3.7-5.3) L 05/31/18 04:10 Globulin 3.0 gm/dL 05/31/18 04:10 Albumin/Globulin Ratio 0.9 (1.0-1.8) L 05/31/18 04:10 Triglycerides 74 mg/dL (<150) 05/31/18 04:10 TSH 3.21 uIU/ml (0.34-5.60) 05/22/18 17:34 Urine Source CLEAN C 05/22/18 18:55 Urine Color YELLOW 05/22/18 18:55 Urine Clarity HAZY (CLEAR) 05/22/18 18:55 Urine pH 6.0 (4.6 - 8.0) 05/22/18 18:55 Ur Specific [place] >= 1.030 (1.005-1.030) 05/22/18 18:55 Urine Protein TRACE mg/dL (NEGATIVE) 05/22/18 18:55 Urine Glucose (UA) 100 mg/dL (NEGATIVE) H 05/22/18 18:55 Urine Ketones 40 mg/dL (NEGATIVE) H 05/22/18 18:55 Urine Blood MODERATE (NEGATIVE) H 05/22/18 18:55 Urine Nitrate POSITIVE (NEGATIVE) H 05/22/18 18:55 Urine Bilirubin NEGATIVE (NEGATIVE) 05/22/18 18:55 Urine Urobilinogen 0.2 E.U./dL (0.2 - 1.0) 05/22/18 18:55 Ur Leukocyte Esterase SMALL (NEGATIVE) H 05/22/18 18:55 Urine RBC 0-2 /hpf (0-5) 05/22/18 18:55 Urine WBC 6-10 /hpf (0-5) H 05/22/18 18:55 Ur Epithelial Cells OCCASIONAL /lpf (FEW) 05/22/18 18:55 Urine Bacteria 2+ /hpf (NONE SEEN) H 05/22/18 18:55 Urine Osmolality 583 mOsmol/kg 05/24/18 06:00 Ur Random Sodium 14 mmol/L 05/24/18 06:00 Vancomycin Trough 13.7 ug/mL (5-10) H 05/25/18 08:00 Valproic Acid 29.3 ug/mL (50.0-100.0) L 05/22/18 17:34 - Physical Exam Vitals and I&O: Vital Signs Temp 98.5 F 05/31/18 12:00 Pulse 99 05/31/18 12:00 Resp 24 05/31/18 12:00 BP 100/57 05/31/18 12:00 Pulse Ox 99 05/31/18 12:00 Intake & Output 05/30/18 05/31/18 05/31/18 18:59 06:59 18:59 Intake Total 1810.1 1377.5 Output Total 550 1150 Balance 1260.1 227.5 Weight (lbs) 81.737 kg 81.647 kg Intake: Intake, IV Amount 1810.1 1377.5 Multivitamin Inj 10 ml 1710.1 927.5 Insulin Human Regular 10 units In Dextrose 70% 500 ml In Amino Acids 8.5% 500 ml In Water, Sterile 700 ml @ 70 mls/hr IV . Q24H [facility] Rx#:[id number] Piperacillin Sodium/ 100 Tazobact 3.375 gm In Sodium Chloride 0.9% 50 ml @ 100 mls/hr IV Q6H [facility] Rx#:[id number] Sodium Chloride 0.9% 1, 450 000 ml @ 30 mls/hr IV . Q24H [facility] Rx#:[id number] Output: Gastric Drainage 250 800 Urine 300 350 Other: # Bowel Movements 0 Weight Source Bedscale Bedscale Active Medications: Current Medications Acetaminophen (Tylenol 650mg Supp) 650 mg RC Q4H PRN PRN Reason: PAIN OR TEMP >101 Stop: 07/21/18 22:25 Albuterol/Ipratropium (Duoneb Neb) 3 ml HHN [id number] [facility] Stop: 07/22/18 18:59 Last Admin: 05/31/18 11:48 Dose: 3 ml Bisacodyl (Dulcolax 10 Mg Supp) 10 mg RC DAILY [facility] Stop: 07/22/18 12:14 Last Admin: 05/31/18 09:10 Dose: 10 mg Budesonide (Pulmicort) 0.5 mg HHN BIDRT [facility] Stop: 07/22/18 18:59 Last Admin: 05/31/18 07:28 Dose: 0.5 mg Calamine/Phenol (Calmoseptine) 1 appl TP QID PRN PRN Reason: Skin Irritation Stop: 07/25/18 15:43 Last Admin: 05/26/18 17:23 Dose: 1 appl [place] Oil/[place] Balsam/Trypsin (Venelex) 1 appl TP DAILY [facility] Stop: 07/25/18 15:59 Last Admin: 05/31/18 09:11 Dose: 1 appl Divalproex Sodium (Depakote Dr) 250 mg PO BID [facility]; Protocol Stop: 07/22/18 16:59 Last Admin: 05/31/18 09:12 Dose: Not Given Gabapentin (Neurontin) 300 mg PO TID [facility] Stop: 07/22/18 13:59 Last Admin: 05/31/18 09:12 Dose: Not Given Multivitamins/Minerals 10 ml/Insulin Human Regular 10 units / Dextrose/ Amino Acids/Electrolytes/ Sterile Water 1,710.1 mls @ 70 mls/hr IV .Q24H [facility] Stop: 06/25/18 15:59 Last Infusion: 05/31/18 06:00 Dose: 70 mls/hr Sodium Chloride (Nacl 0.9%) 1,000 mls @ 30 mls/hr IV .Q24H [facility] Stop: 07/26/18 10:29 Last Infusion: 05/31/18 06:00 Dose: 30 mls/hr Insulin Aspart (Novolog Insulin Sliding Scale) 0 units SUBQ Q6HR [facility]; Protocol Stop: 07/22/18 11:59 Last Admin: 05/31/18 12:03 Dose: 4 units Lactobacillus Rhamnosus (Culturelle 15b) 1 each PO DAILY [facility] Stop: 07/25/18 08:59 Last Admin: 05/31/18 09:12 Dose: Not Given Lorazepam (Ativan) 0.5 mg IVP Q6H PRN; Protocol PRN Reason: Agitation Stop: 07/23/18 11:49 Miscellaneous (Probiotic Screen) 1 [facility] PRN PRN PRN Reason: PROTOCOL Stop: 07/24/18 14:14 Miscellaneous (Ppn Per Pharmacy) 1 [facility] PRN PRN PRN Reason: PROTOCOL Stop: 07/25/18 16:42 Morphine Sulfate (Morphine) 2 mg IVP Q3H PRN PRN Reason: Pain (Severe) Stop: 07/21/18 22:22 Last Admin: 05/31/18 11:41 Dose: 2 mg Nystatin (Nystop) 0 units TP BID [facility] Stop: 07/25/18 16:59 Last Admin: 05/31/18 09:10 Dose: 100,000 units Ondansetron HCl (Zofran) 4 mg IV Q6H PRN PRN Reason: Nausea / Vomiting Stop: 07/21/18 22:24 Last Admin: 05/25/18 11:11 Dose: 4 mg General: no acute distress, well developed, well nourished HEENT: atraumatic, normocephalic, PERRLA Neck: supple, no thyromegaly Cardiovascular: S1S2, regular Lungs: clear to auscultation bilaterally, clear to percussion Abdomen: soft, distended, no tender Extremities: no cyanosis, no clubbing, no edema Neurological: awake, alert Skin: other (sacral wound) - Procedures Procedures: Procedures Procedure Code Date EMERGENCY DEPT VISIT 62358 02/03/00 IMMOBILIZ/WOUND ATTN NEC 93.59 08/01/01 Infectious Disease Assmt/Plan - Problem List Patient Problems: All Active Problems Bowel obstruction (Acute) K56.609 Bowel obstruction (Acute) K56.609 PERIPHERAL TREMORS WITH DIAPHORESIS (Acute) - Assessment Assessment: 1. Urinary tract infection. treated. 2. Ileus versus small bowel obstruction. 3. Leukocytosis improved, secondary to urinary tract infection and ileus versus small bowel obstruction. 4. Hyponatremia, rule out syndrome of inappropriate antidiuretic hormone. 5. History of psychosis. 6. History of hypertension. - Plan Plan: Wound care. Patient is getting transferred to higher level of care. Off antibiotics. I will s/o please call me as needed. Nutritional Asmnt/Malnutr-PDOC - Dietary Evaluation Malnutrition Findings (Please click <Entered> for more info): Nutritional Asmnt/Malnutrition Start: 05/23/18 16: 41 Text: Status: Complete Freq: Protocol: Document 05/23/18 16:41 LCHENG (Rec: 05/23/18 16:54 LCHENG [id number]) Nutritional Asmnt/Malnutrition Patient General Information Nutritional Screening High Risk Consult Diagnosis bowel obstruction Pertinent Medical Hx/Surgical Hx HTN, dyslipidemia, depression, anxiety, impulse disorder Subjective Information Consult received for elevated glucose 249. pt admitted for abdominal pain. Pt seen resting in bed at time of visit. Pt is NPO, NGT on suction. Current Diet Order/ Nutrition Support NPO Pertinent Medications novolot, piperacillin, zofran, piperacillin, nacl Pertinent Labs 05/23 Na 120, Cl 89, Cr 0.5, glucsose 241, alb 3.4 Nutritional Hx/Data Height 1.63 m Height (Calculated Centimeters) 162.6 Current Weight (lbs) 77.111 kg Weight (Calculated Kilograms) 77.1 Weight (Calculated Grams) 70049.7 Edwards Body Weight 120 Body Mass Index (BMI) 29.2 Weight Status Overweight GI Symptoms GI Symptoms None Last BM not indicated Difficult in: None Skin Integrity/Comment: ecchymosis Current %PO Negligible < 25% Estimated Nutritional Goals BEE in Kcals: Using Current wt Calories/Kcals/Kg 23-27 Kcals Calculated Protein: Using Current wt Protein g/k.8-1 Protein Calculated 62-77 Fluid: ml [id number] Nutritional Problem 2. Problem Problem altered nutrition related labs Etiology hyperglycemia Signs/Symptoms: glucose 241-249 1. Problem Problem inadequate food intake Etiology GI dysfunction Signs/Symptoms: pt on NPO Malnutrition Alert Is there a minimum of two criteria No selected? Query Text:Check all the applicable criteria. A minimum of two criteria are recommended for diagnosis of either severe or non-severe malnutrition. Malnutrition Related to Morbid Obesity Malnutrition related to morbid obesity No Intervention/Recommendation Comments 1. Monitor NPO status. Recommend clear liquid diet with Ensure Clear TID if diet advanced when medically appropriate 2. Monitor GI, wt, labs and skin integrity 3. F/U as high risk in 2-3 days Expected Outcomes/Goals Expected Outcomes/Goals 1. oral diet initiated in 2-3 days 2. Wt stability, skin to remain intact, labs to approach WNL.
[2018-05-31] MEDS: TPN 8.5%-70% CUSTOM IV SCH (16:23)
[2018-05-31] MEDS: Sodium Chloride 0.9% 1,000 ML IV SCH (16:29)
--- NOTE | 2018-06-01 02:06 | Progress Notes ---
DATE: IDENTIFICATION: An 82-year-old female. SUBJECTIVE: The patient seen and examined. The patient is currently on PPN and NG tube. The patient's durable power of trust and estates attorney her son has decided not to pursue aggressively at this time after the patient's son had a discussion with the surgeon. There is no new event has been reported. [facility]. PHYSICAL EXAMINATION: VITAL SIGNS: Temperature 98.7, pulse 100, respiratory rate is 18, blood pressure 122/60. HEENT: No facial asymmetry. Nasogastric tube noted. NECK: Supple, no JVD. HEART: Regular. CHEST AND LUNGS: Equal in expansion, no expiratory wheezing. ABDOMEN: Soft, palpable ventral hernia noted. Bowel sounds are sluggishly present. EXTREMITIES: No edema. AVAILABLE DIAGNOSTIC DATA: White count of 8.1, hemoglobin 11.9, platelet count of 373. BUN and creatinine is 38.6, potassium of 4, albumin of 2.7. CLINICAL IMPRESSION: 1. Persistent small-bowel obstruction. 2. Bilateral pneumonia. 3. Dementia. 4. Diabetes mellitus. 5. Psychotic disorder. 6. Degenerative joint disease. 7. Dementia. PLAN: Continue current care as prescribed. We will transfer this patient to Med/Surg status for now. Await hospice input and we will follow up moving consultant recommendation at this time. Care plan reviewed and discussed. JOB# [id number]
[2018-06-01 05:01] LABS: EOSINOPHILE ABSOLUTE 0.1 Th/cmm (0.1-0.4); HEMOGLOBIN 11.1 gm/dL (12-16); LYMPHOCYTE ABSOLUTE 0.7 Th/cmm (1.5-3.0); MONOCYTE ABSOLUTE 1.5 Th/cmm (0.3-1.0)
[2018-06-01 05:19] LABS: % EOSINOPHILS 1.5 % (0.0-5.0); % LYMPHOCYTES 7.9 % (20.0-50.0); % MONOCYTES 15.9 % (2.0-10.0); % NEUTROPHILS 74.6 % (40.0-80.0); HEMATOCRIT 34.1 % (41.0-60); MEAN CELL VOLUME 85.5 fl (81-100); MEAN CORPUSCULAR HEMOGLOBIN 27.8 pg (27.0-31.0); MEAN CORPUSCULAR HGB CONC 32.5 pg (28.0-36.0); PLATELET COUNT 293 Th/cmm (150-400); RED BLOOD COUNT 3.99 Mil/cmm (3.80-5.20); RED CELL DISTRIBUTION WIDTH 13.3 % (11.5-20.0); WHITE BLOOD COUNT 9.3 Th/cmm (4.8-10.8)
[2018-06-01 05:31] LABS: ANION GAP 12.2 (7.0-16.0); BUN - UREA NITROGEN 35 mg/dL (7-25); CALCIUM SERUM 8.3 mg/dL (8.6-10.3); CARBON DIOXIDE 23.1 mEq/L (21.0-31.0); CHLORIDE 112 mEq/L (98-107); CREATININE - SERUM 0.5 mg/dL (0.6-1.2); GLUCOSE 151 mg/dL (70-105); MAGNESIUM 2.3 mg/dL (1.9-2.7); PHOSPHOROUS 2.9 mg/dL (2.5-5.0); POTASSIUM SERUM 4.3 mEq/L (3.5-5.1); SODIUM SERUM 143 mEq/L (136-145)
[2018-06-01] MEDS: INSULIN ASPART SLIDING SCALE 100 UNITS/ML UNIT SUBQ SCH ×3 (05:44→20:32)
[2018-06-01 05:59] LABS: % BASOPHILS 0.1 % (0.0-2.0)
[2018-06-01 06:42] LABS: BAND NEUTROPHILE 14 % (0-10); BASOPHIL 0 % (0-3); EOSINOPHIL 0 % (0-5); LYMPHOCYTE 10 % (20-50); MONOCYTE 15 % (2-10); NEUTROPHILS 61 % (40-80)
[2018-06-01] MEDS: Albuterol/Ipratropium Neb 3 ML AERS HHN SCH ×3 (07:22→19:20)
[2018-06-01] MEDS: Budesonide 0.5 Mg/2 mL Ud HHN SCH ×2 (07:23→19:21)
[2018-06-01] MEDS: Venelex 60gm Tube TP SCH (09:39)
[2018-06-01] MEDS: NYSTATIN 100000 UNITS/GM POWD TP SCH ×2 (09:40→20:31)
[2018-06-01] MEDS: Lactobacillus Rhamnosus GG 15 Billion CFU CAP.SPRINK PO SCH (09:40)
[2018-06-01] MEDS ORDERED: metroNIDAZOLE 500mg/NS 100mL 500 MG/100 ML BAG IV ONE (10:10)
[2018-06-01] MEDS ORDERED: Sodium Chloride 0.9% IRR 1,000 ML IV ONE (10:10)
--- NOTE | 2018-06-01 10:47 | Consultation ---
Consult Note - Consult Note Service Date: 05/31/18 Consult Note: PHYSICIAN Consultation Note: Date of Admission: 05/22/18 Purpose of Consultation: Chief Complaint: History of Present Illness: Patient MEREDITH ALMANZA was admitted to location Intensive Care Unit with BOWEL OBSTRUCTION. Past Medical History: Diagnoses SEPSIS, UNSPECIFIED ORGANISM (05/22/18) ELEVATED WHITE BLOOD CELL COUNT, UNSPECIFIED (05/22/18) SYNDROME OF INAPPROPRIATE SECRETION OF ANTIDIURETIC HORMONE (05/22/18) HYPOMAGNESEMIA (05/22/18) ACIDOSIS (05/22/18) UNSPECIFIED DEMENTIA WITHOUT BEHAVIORAL DISTURBANCE (05/22/18) ESSENTIAL (PRIMARY) HYPERTENSION (05/22/18) PNEUMONIA, UNSPECIFIED ORGANISM (05/22/18) VENTRAL HERNIA WITHOUT OBSTRUCTION OR GANGRENE (05/22/18) UNSP INTESTNL OBST, 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 OBST (05/22/18) AGE-RELATED OSTEOPOROSIS W/O CURRENT PATHOLOGICAL FRACTURE (05/22/18) URINARY TRACT INFECTION, SITE NOT SPECIFIED (05/22/18) WEAKNESS (05/22/18) DO NOT RESUSCITATE (05/22/18) Allergies Allergy/AdvReac Type Severity Reaction Status Date / Time codeine Allergy Verified 11/25/16 20:24 Vital Signs Temp 97.8 F 06/01/18 08:00 Pulse 101 06/01/18 08:00 Resp 19 06/01/18 08:00 BP 110/58 06/01/18 08:00 Pulse Ox 95 06/01/18 08:00 Intake & Output 05/31/18 06/01/18 06/01/18 18:59 06:59 18:59 Intake Total 1243.333 Output Total 825 850 Balance 418.333 -850 Weight (lbs) 192 lb 9.6 oz 192 lb 9.6 oz Intake: Intake, IV Amount 1243.333 Multivitamin Inj 10 ml 870.333 Insulin Human Regular 10 units In Dextrose 70% 500 ml In Amino Acids 8.5% 500 ml In Water, Sterile 700 ml @ 70 mls/hr IV . Q24H [facility] Rx#:[id number] Sodium Chloride 0.9% 1, 373.0 000 ml @ 30 mls/hr IV . Q24H [facility] Rx#:[id number] Oral 0 Output: Gastric Drainage 475 450 Urine 350 400 Other: # Bowel Movements 0 Stool Characteristics Soft Brown Weight Source Bedscale Estimated Laboratory Results - last 24 hr 05/31/18 05/31/18 05/31/18 11:53 16:43 23:45 WBC RBC Hgb Hct MCV MCH MCHC Differential RDW Plt Count MPV Neutrophils % Band Neutrophils % Lymphocytes % Monocytes % Eosinophils % Basophils % Neutrophils (Manual) Lymphocytes Monocytes Eosinophils Basophils Sodium Potassium Chloride Carbon Dioxide Anion Gap BUN Creatinine Est GFR ( Amer) Est GFR (Non-Af Amer) BUN/Creatinine Ratio Glucose POC Glucose 242 H 196 H 220 H Calcium Phosphorus Magnesium Cholesterol 06/01/18 06/01/18 06/01/18 04:30 04:30 04:30 WBC 9.3 RBC 3.99 Hgb 11.1 L Hct 34.1 L MCV 85.5 MCH 27.8 MCHC Differential 32.5 RDW 13.3 Plt Count 293 MPV 7.0 Neutrophils % 74.6 Band Neutrophils % 14 H Lymphocytes % 7.9 L Monocytes % 15.9 H Eosinophils % 1.5 Basophils % 0.1 Neutrophils (Manual) 61 Lymphocytes 10 L Monocytes 15 H Eosinophils 0 Basophils 0 Sodium 143 Potassium 4.3 Chloride 112 H Carbon Dioxide 23.1 Anion Gap 12.2 BUN 35 H Creatinine 0.5 L Est GFR ( Amer) TNP Est GFR (Non-Af Amer) TNP BUN/Creatinine Ratio 70.0 Glucose 151 H POC Glucose Calcium 8.3 L Phosphorus 2.9 Magnesium 2.3 Cholesterol 118 06/01/18 05:14 WBC RBC Hgb Hct MCV MCH MCHC Differential RDW Plt Count MPV Neutrophils % Band Neutrophils % Lymphocytes % Monocytes % Eosinophils % Basophils % Neutrophils (Manual) Lymphocytes Monocytes Eosinophils Basophils Sodium Potassium Chloride Carbon Dioxide Anion Gap BUN Creatinine Est GFR ( Amer) Est GFR (Non-Af Amer) BUN/Creatinine Ratio Glucose POC Glucose 144 H Calcium Phosphorus Magnesium Cholesterol Home Medication Medication Instructions Recorded Type Bisacodyl [Dulcolax 10 Mg Supp] 10 mg RC DAILY PRN 12/09/17 History Citalopram Hydrobromide 40 mg PO DAILY 12/09/17 History [Citalopram HBr] risperiDONE [RisperDAL] 0.5 mg PO HS 12/09/17 History Al Hyd/Mg Hyd/Simethicone [Maalox] 30 ml PO Q4HR PRN udc 12/27/17 Rx Docusate Sodium [Colace] 250 mg PO DAILY sgl 12/27/17 Rx Hydrocodone/APAP 5mg/325mg [Gary 1 tab PO Q6H PRN tab 12/27/17 Rx 5mg/325mg] Losartan Potassium [Cozaar] 25 mg PO DAILY tab 12/27/17 Rx Magnesium Hydroxide [Milk of 30 ml PO HS PRN udc 12/27/17 Rx Magnesia] Multivitamin [Theragran] 1 tab PO DAILY tab 12/27/17 Rx Pantoprazole [Protonix] 40 mg PO DAILY ect 12/27/17 Rx clonazePAM [klonoPIN*] 0.5 mg PO BID tab 12/27/17 Rx metFORMIN [Glucophage] 850 mg PO BIDWM tab 12/27/17 Rx Acetaminophen [Tylenol] 650 mg PO Q6H PRN 05/22/[address] [Depakote DR] 250 mg PO BID 05/22/18 History Gabapentin 300 mg PO TID 05/22/18 History Magnesium Chloride EC [Slow-Mag] 1 ect PO DAILY 05/22/18 History Melatonin/Pyridoxine HCl (B6) 1 each PO HS PRN 05/22/18 History [Melatonin 3 mg Tablet] Memantine HCl 5 mg PO DAILY 05/22/18 History Protein Supplement [Promod 946 ml] 30 ml PO DAILY 05/22/18 History Zinc Oxide 1 appl TP DAILY 05/22/18 History risperiDONE [Risperdal] 1 mg PO DAILY 05/22/18 History Current Medications Generic Name Dose Route Start Last Admin Trade Name Freq PRN Reason Stop Dose Admin Acetaminophen 650 mg 05/22/18 22:26 Tylenol 650mg Supp RC 07/21/18 22:25 Q4H PRN PAIN OR TEMP >101 Albuterol/Ipratropium 3 ml 05/23/18 19:00 06/01/18 07:22 Duoneb Neb N 07/22/18 18:59 3 ml [id number] [facility] Administration Bisacodyl 10 mg 05/23/18 12:15 06/01/18 09:39 Dulcolax 10 Mg Supp RC 07/22/18 12:14 10 mg DAILY [facility] Administration Budesonide 0.5 mg 05/23/18 19:00 06/01/18 07:23 Pulmicort HHN 07/22/18 18:59 0.5 mg BIDRT [facility] Administration Calamine/Phenol 1 appl 05/26/18 15:44 05/26/18 17:23 Calmoseptine TP 07/25/18 15:43 1 appl QID PRN Administration Skin Irritation [place] Oil/[place] Balsam/Trypsin 1 appl 05/26/18 16:00 06/01/18 09:39 Venelex TP 07/25/18 15:59 1 appl DAILY [facility] Administration Divalproex Sodium 250 mg 05/23/18 17:00 06/01/18 09:[address] PO 07/22/18 16:59 Not Given BID [facility] Protocol Gabapentin 300 mg 05/23/18 14:00 06/01/18 09:40 Neurontin PO 07/22/18 13:59 Not Given TID [facility] Multivitamins/Minerals 10 ml/ 1,710.1 mls @ 70 mls/hr 05/27/18 16:00 18:26 Insulin Human Regular 10 units IV 06/25/18 15:59 70 mls/hr / Dextrose/ Amino Acids/ .Q24H [facility] Infusion Electrolytes/ Sterile Water Sodium Chloride 1,000 mls @ 30 mls/hr 05/27/18 10:30 05/31/18 18:26 Nacl 0.9% IV 07/26/18 10:29 30 mls/hr .Q24H [facility] Infusion Insulin Aspart 0 units 05/23/18 12:00 06/01/18 05:44 Novolog Insulin Sliding Scale SUBQ 07/22/18 11:59 Not Given Q6HR [facility] Protocol Lactobacillus Rhamnosus 1 each 05/26/18 09:00 06/01/18 09:40 Culturelle 15b PO 07/25/18 08:59 Not Given DAILY [facility] Lorazepam 0.5 mg 05/31/18 15:48 Ativan IVP 07/30/18 15:47 Q6H PRN AGITATION Miscellaneous 1 ea 05/25/18 14:15 Probiotic Screen 07/24/18 14:14 PRN PRN PROTOCOL Miscellaneous 1 ea 05/26/18 16:43 Ppn Per Pharmacy 07/25/18 16:42 PRN PRN PROTOCOL Morphine Sulfate 2 mg 05/22/18 22:23 01/01/19 20:57 Morphine IVP 07/21/18 22:22 2 mg Q3H PRN Administration Pain (Severe) Nystatin 0 units 05/26/18 17:00 06/01/18 09:40 Nystop TP 07/25/18 16:59 100,000 units BID [facility] Administration Ondansetron HCl 4 mg 05/22/18 22:25 05/25/18 11:11 Zofran IV 07/21/18 22:24 4 mg Q6H PRN Administration Nausea / Vomiting Review of Systems: A 12 point ROS was reviewed with the pertinent positive and negatives noted in the HPI. Social History Smoking Status Smoker, status unknown Drug Use UNKNOWN Alcohol Use UNKNOWN Family Medical History Family Medical History Start: 05/22/18 22: 21 Freq: ONCE Status: Active Protocol: Document 05/22/18 22:21 HOLLY (Rec: 05/23/18 01:33 MSILVA [id number]) Family Medical History Mother History Unknown Yes Physical Exam: General: patient is more awake and alert able to speak to son about DNR vs surgical intervention HEENT: Neck: NGT in place with 500 cc bilious material last 24 hours Cardio: NSR 88 bpm to 110 bpm Respiratory: breathing at approx 20- 24 / min saturation in mid 90% clearance from Dr Rivera block mason for surgical intervention Abdominal: distended with visible protrusion of defect in the midline of previous surgical scars (30 years ago + for removal of soft tissue tumors with no available documents to determine the type of tumors removed but according to son they were large and weighed over 20 lbx) Genital/Urinary: good urine output via [place] Extremities: Neurological: some degree of dementia with appropriate conversation with singh Negrete at bedside Assessment: incisional ventral hernia incarcerated with no flow of contrast through the distal small bowel Plan: After the family (singh Negrete) decided to reverse the DNR orders ( following mother's wishes ) Exploratory laparotomy possible bowel resection possible biologic mesh interposition high risk procedure explained to son especially prolonged intubation and delirium post op due to some degree of dementia preop son accepted high risk and reversed DNR DNI orders per mothers wishes Signed, Yumiko Florez [id number]
[2018-06-01] MEDS ORDERED: fentaNYL Citrate 100 mcg/2mL Vial ONE (10:54)
[2018-06-01] MEDS ORDERED: Propofol **SURGERY USE ONLY** 20 ML IV ONE (10:54)
[2018-06-01] MEDS ORDERED: Neostigmine 10mg/10mL Vial ONE (10:55)
[2018-06-01] MEDS ORDERED: Sodium Chloride 0.9% 1,000 ML IV ONE (13:25)
--- NOTE | 2018-06-01 13:35 | General Progress Note ---
Subjective - Review of Systems Service Date: 06/01/18 Subjective: Patient seen and examined (covering for DR VARGAS) chart reviewed patients s/p exp lap with release of SBO and repair of incarcerated ventral hernia Objective - Results Result Diagrams: 06/01/18 14:45 06/01/18 04:30 Recent Labs: Laboratory Last Values WBC 9.3 Th/cmm (4.8-10.8) 06/01/18 04:30 Corrected WBC (auto) 3.0 Th/cmm (4.8-10.8) L 05/26/18 04:00 RBC 3.99 Mil/cmm (3.80-5.20) 06/01/18 04:30 Hgb 11.1 gm/dL (12-16) L 06/01/18 04:30 Hct 34.1 % (41.0-60) L 06/01/18 04:30 MCV 85.5 fl (81-100) 06/01/18 04:30 MCH 27.8 pg (27.0-31.0) 06/01/18 04:30 MCHC Differential 32.5 pg (28.0-36.0) 06/01/18 04:30 RDW 13.3 % (11.5-20.0) 06/01/18 04:30 Plt Count 293 Th/cmm (150-400) 06/01/18 04:30 MPV 7.0 fl 06/01/18 04:30 Add Manual Diff YES 05/31/18 04:10 Neutrophils % 74.6 % (40.0-80.0) 06/01/18 04:30 Band Neutrophils % 14 % (0-10) H 06/01/18 04:30 Lymphocytes % 7.9 % (20.0-50.0) L 06/01/18 04:30 Monocytes % 15.9 % (2.0-10.0) H 06/01/18 04:30 Eosinophils % 1.5 % (0.0-5.0) 06/01/18 04:30 Basophils % 0.1 % (0.0-2.0) 06/01/18 04:30 Neutrophils (Manual) 61 % (40-80) 06/01/18 04:30 Lymphocytes 10 % (20-50) L 06/01/18 04:30 Monocytes 15 % (2-10) H 06/01/18 04:30 Eosinophils 0 % (0-5) 06/01/18 04:30 Basophils 0 % (0-3) 06/01/18 04:30 Platelet Estimate ADEQUATE (NORMAL) 05/31/18 04:10 PT 10.8 SECONDS (9.5-11.5) 05/23/18 04:30 INR 1.04 (0.5-1.4) 05/23/18 04:30 PTT (Actin FS) 27.4 SECONDS (26.0-38.0) 05/23/18 04:30 Specimen Source Arterial 05/27/18 08:55 Sample Site Right Radial 05/27/18 08:55 pH 7.44 (7.35-7.45) 05/27/18 08:55 pCO2 37.0 mmHg (35.0-45.0) 05/27/18 08:55 pO2 100.0 mmHg (80.0-100.0) 05/27/18 08:55 HCO3 25.8 mEq/L (20.0-26.0) 05/27/18 08:55 Base Excess 1.1 mEq/L (-3.0-3.0) 05/27/18 08:55 O2 Saturation 98.0 % (92.0-100.0) 05/27/18 08:55 Ricky Test Positive 05/27/18 08:55 Vent Rate N/A 05/27/18 08:55 Inspired O2 28 05/27/18 08:55 Tidal Volume N/A 05/27/18 08:55 PEEP N/A 05/27/18 08:55 Pressure (ins/psv/peep) N/A 05/27/18 08:55 Critical Value DM 05/27/18 08:55 Sodium 143 mEq/L (136-145) 06/01/18 04:30 Potassium 4.3 mEq/L (3.5-5.1) 06/01/18 04:30 Chloride 112 mEq/L (98-107) H 06/01/18 04:30 Carbon Dioxide 23.1 mEq/L (21.0-31.0) 06/01/18 04:30 Anion Gap 12.2 (7.0-16.0) 06/01/18 04:30 BUN 35 mg/dL (7-25) H 06/01/18 04:30 Creatinine 0.5 mg/dL (0.6-1.2) L 06/01/18 04:30 Est GFR ( Amer) TNP 06/01/18 04:30 Est GFR (Non-Af Amer) TNP 06/01/18 04:30 BUN/Creatinine Ratio 70.0 06/01/18 04:30 Glucose 151 mg/dL (70-105) H 06/01/18 04:30 POC Glucose 144 MG/DL (70 - 105) H 06/01/18 05:14 Plasma/Ser Osmolality 259 mOsmol/kg (280-301) L 05/23/18 09:55 Whole Bld Lactic Acid 1.23 mmol/L (0.60-1.99) 05/29/18 22:45 Calcium 8.3 mg/dL (8.6-10.3) L 06/01/18 04:30 Phosphorus 2.9 mg/dL (2.5-5.0) 06/01/18 04:30 Magnesium 2.3 mg/dL (1.9-2.7) 06/01/18 04:30 Total Bilirubin 0.5 mg/dL (0.3-1.0) 05/31/18 04:10 Direct Bilirubin 0.14 mg/dL (0.0-0.2) 05/24/18 07:05 AST 14 U/L (13-39) 05/31/18 04:10 ALT 11 U/L (7-52) 05/31/18 04:10 Alkaline Phosphatase 37 U/L (34-104) 05/31/18 04:10 Ammonia 46 umol/L (16-53) 05/25/18 04:00 Total Protein 5.7 gm/dL (6.0-8.3) L 05/31/18 04:10 Albumin 2.7 gm/dL (3.7-5.3) L 05/31/18 04:10 Globulin 3.0 gm/dL 05/31/18 04:10 Albumin/Globulin Ratio 0.9 (1.0-1.8) L 05/31/18 04:10 Triglycerides 74 mg/dL (<150) 05/31/18 04:10 Cholesterol 118 mg/dL (<200) 06/01/18 04:30 TSH 3.21 uIU/ml (0.34-5.60) 05/22/18 17:34 Urine Source CLEAN C 05/22/18 18:55 Urine Color YELLOW 05/22/18 18:55 Urine Clarity HAZY (CLEAR) 05/22/18 18:55 Urine pH 6.0 (4.6 - 8.0) 05/22/18 18:55 Ur Specific [place] >= 1.030 (1.005-1.030) 05/22/18 18:55 Urine Protein TRACE mg/dL (NEGATIVE) 05/22/18 18:55 Urine Glucose (UA) 100 mg/dL (NEGATIVE) H 05/22/18 18:55 Urine Ketones 40 mg/dL (NEGATIVE) H 05/22/18 18:55 Urine Blood MODERATE (NEGATIVE) H 05/22/18 18:55 Urine Nitrate POSITIVE (NEGATIVE) H 05/22/18 18:55 Urine Bilirubin NEGATIVE (NEGATIVE) 05/22/18 18:55 Urine Urobilinogen 0.2 E.U./dL (0.2 - 1.0) 05/22/18 18:55 Ur Leukocyte Esterase SMALL (NEGATIVE) H 05/22/18 18:55 Urine RBC 0-2 /hpf (0-5) 05/22/18 18:55 Urine WBC 6-10 /hpf (0-5) H 05/22/18 18:55 Ur Epithelial Cells OCCASIONAL /lpf (FEW) 05/22/18 18:55 Urine Bacteria 2+ /hpf (NONE SEEN) H 05/22/18 18:55 Urine Osmolality 583 mOsmol/kg 05/24/18 06:00 Ur Random Sodium 14 mmol/L 05/24/18 06:00 Vancomycin Trough 13.7 ug/mL (5-10) H 05/25/18 08:00 Valproic Acid 29.3 ug/mL (50.0-100.0) L 05/22/18 17:34 - Physical Exam Vitals and I&O: Vital Signs Temp 97.8 F 06/01/18 08:00 Pulse 101 06/01/18 08:00 Resp 19 06/01/18 08:00 BP 110/58 06/01/18 08:00 Pulse Ox 95 06/01/18 08:00 Intake & Output 05/31/18 06/01/18 06/01/18 18:59 06:59 18:59 Intake Total 1243.333 Output Total 825 850 Balance 418.333 -850 Weight (lbs) 87.362 kg 87.362 kg Intake: Intake, IV Amount 1243.333 Multivitamin Inj 10 ml 870.333 Insulin Human Regular 10 units In Dextrose 70% 500 ml In Amino Acids 8.5% 500 ml In Water, Sterile 700 ml @ 70 mls/hr IV . Q24H [facility] Rx#:[id number] Sodium Chloride 0.9% 1, 373.0 000 ml @ 30 mls/hr IV . Q24H [facility] Rx#:[id number] Oral 0 Output: Gastric Drainage 475 450 Urine 350 400 Other: # Bowel Movements 0 Stool Characteristics Soft Brown Weight Source Bedscale Estimated Active Medications: Current Medications Acetaminophen (Tylenol 650mg Supp) 650 mg RC Q4H PRN PRN Reason: PAIN OR TEMP >101 Stop: 07/21/18 22:25 Albuterol/Ipratropium (Duoneb Neb) 3 ml HHN [id number] [facility] Stop: 07/22/18 18:59 Last Admin: 06/01/18 10:30 Dose: Not Given Bisacodyl (Dulcolax 10 Mg Supp) 10 mg RC DAILY [facility] Stop: 07/22/18 12:14 Last Admin: 06/01/18 09:39 Dose: 10 mg Budesonide (Pulmicort) 0.5 mg HHN BIDRT [facility] Stop: 07/22/18 18:59 Last Admin: 06/01/18 07:23 Dose: 0.5 mg Calamine/Phenol (Calmoseptine) 1 appl TP QID PRN PRN Reason: Skin Irritation Stop: 07/25/18 15:43 Last Admin: 05/26/18 17:23 Dose: 1 appl [place] Oil/[place] Balsam/Trypsin (Venelex) 1 appl TP DAILY [facility] Stop: 07/25/18 15:59 Last Admin: 06/01/18 09:39 Dose: 1 appl Chlorhexidine Gluconate (Peridex) 15 ml MM 0800,2000 [facility] Stop: 07/31/18 19:59 Divalproex Sodium (Depakote Dr) 250 mg PO BID [facility]; Protocol Stop: 07/22/18 16:59 Last Admin: 06/01/18 09:41 Dose: Not Given Gabapentin (Neurontin) 300 mg PO TID [facility] Stop: 07/22/18 13:59 Last Admin: 06/01/18 09:40 Dose: Not Given Multivitamins/Minerals 10 ml/Insulin Human Regular 10 units / Dextrose/ Amino Acids/Electrolytes/ Sterile Water 1,710.1 mls @ 70 mls/hr IV .Q24H [facility] Stop: 06/25/18 15:59 Last Infusion: 05/31/18 18:26 Dose: 70 mls/hr Sodium Chloride (Nacl 0.9%) 1,000 mls @ 30 mls/hr IV .Q24H [facility] Stop: 07/26/18 10:29 Last Infusion: 05/31/18 18:26 Dose: 30 mls/hr Sodium Chloride (Nacl 0.9%) 1,000 mls @ 0 mls/hr IV .Q0M ONE Stop: 06/01/18 13:26 Insulin Aspart (Novolog Insulin Sliding Scale) 0 units SUBQ Q6HR [facility]; Protocol Stop: 07/22/18 11:59 Last Admin: 06/01/18 11:47 Dose: Not Given Lactobacillus Rhamnosus (Culturelle 15b) 1 each PO DAILY [facility] Stop: 07/25/18 08:59 Last Admin: 06/01/18 09:40 Dose: Not Given Lorazepam (Ativan) 0.5 mg IVP Q6H PRN PRN Reason: AGITATION Stop: 07/30/18 15:47 Miscellaneous (Probiotic Screen) 1 [facility] PRN PRN PRN Reason: PROTOCOL Stop: 07/24/18 14:14 Miscellaneous (Ppn Per Pharmacy) 1 [facility] PRN PRN PRN Reason: PROTOCOL Stop: 07/25/18 16:42 Morphine Sulfate (Morphine) 2 mg IVP Q3H PRN PRN Reason: Pain (Severe) Stop: 07/21/18 22:22 Last Admin: 05/31/18 20:57 Dose: 2 mg Nystatin (Nystop) 0 units TP BID [facility] Stop: 07/25/18 16:59 Last Admin: 06/01/18 09:40 Dose: 100,000 units Ondansetron HCl (Zofran) 4 mg IV Q6H PRN PRN Reason: Nausea / Vomiting Stop: 07/21/18 22:24 Last Admin: 05/25/18 11:11 Dose: 4 mg General: No acute distress Cardiovascular: Regular rate Lungs: Clear to auscultation Abdomen: Soft, no Distended - Procedures Procedures: Procedures Procedure Code Date EMERGENCY DEPT VISIT 42550 02/03/00 IMMOBILIZ/WOUND ATTN NEC 93.59 08/01/01 Assessment/Plan - Problem List Patient Problems: All Active Problems Bowel obstruction (Acute) K56.609 Bowel obstruction (Acute) K56.609 PERIPHERAL TREMORS WITH DIAPHORESIS (Acute) - Assessment Assessment: Small bowel obstruction s/p EXP LAP Incarcerated vental herania s/p repair Post op respiratory failure Pnemonia - Plan Plan: Continue vent support IV fluids Pain control Post op care Monitor lab and vitals DVT prophylaxis Nutritional Asmnt/Malnutr-PDOC - Dietary Evaluation Malnutrition Findings (Please click <Entered> for more info): Nutritional Asmnt/Malnutrition Start: 05/23/18 16: 41 Text: Status: Complete Freq: Protocol: Document 05/23/18 16:41 LCHENG (Rec: 05/23/18 16:54 LCHENG [id number]) Nutritional Asmnt/Malnutrition Patient General Information Nutritional Screening High Risk Consult Diagnosis bowel obstruction Pertinent Medical Hx/Surgical Hx HTN, dyslipidemia, depression, anxiety, impulse disorder Subjective Information Consult received for elevated glucose 249. pt admitted for abdominal pain. Pt seen resting in bed at time of visit. Pt is NPO, NGT on suction. Current Diet Order/ Nutrition Support NPO Pertinent Medications novolot, piperacillin, zofran, piperacillin, nacl Pertinent Labs 05/23 Na 120, Cl 89, Cr 0.5, glucsose 241, alb 3.4 Nutritional Hx/Data Height 1.63 m Height (Calculated Centimeters) 162.6 Current Weight (lbs) 77.111 kg Weight (Calculated Kilograms) 77.1 Weight (Calculated Grams) 31140.7 [place] Body Weight 120 Body Mass Index (BMI) 29.2 Weight Status Overweight GI Symptoms GI Symptoms None Last BM not indicated Difficult in: None Skin Integrity/Comment: ecchymosis Current %PO Negligible < 25% Estimated Nutritional Goals BEE in Kcals: Using Current wt Calories/Kcals/Kg 23-27 Kcals Calculated Protein: Using Current wt Protein g/k.8-1 Protein Calculated 62-77 Fluid: ml [id number] Nutritional Problem 2. Problem Problem altered nutrition related labs Etiology hyperglycemia Signs/Symptoms: glucose 241-249 1. Problem Problem inadequate food intake Etiology GI dysfunction Signs/Symptoms: pt on NPO Malnutrition Alert Is there a minimum of two criteria No selected? Query Text:Check all the applicable criteria. A minimum of two criteria are recommended for diagnosis of either severe or non-severe malnutrition. Malnutrition Related to Morbid Obesity Malnutrition related to morbid obesity No Intervention/Recommendation Comments 1. Monitor NPO status. Recommend clear liquid diet with Ensure Clear TID if diet advanced when medically appropriate 2. Monitor GI, wt, labs and skin integrity 3. F/U as high risk in 2-3 days Expected Outcomes/Goals Expected Outcomes/Goals 1. oral diet initiated in 2-3 days 2. Wt stability, skin to remain intact, labs to approach WNL.
[2018-06-01 13:38] LABS: ALLEN TEST YES; pH 7.37 (7.35-7.45)
--- NOTE | 2018-06-01 14:11 | GI Progress Note ---
Subjective - Review of Systems Service Date: 06/01/18 Subjective: GI NOTE HAD EX LAP. Objective - Results Result Diagrams: 06/01/18 04:30 06/01/18 04:30 Recent Labs: Laboratory Last Values WBC 9.3 Th/cmm (4.8-10.8) 06/01/18 04:30 Corrected WBC (auto) 3.0 Th/cmm (4.8-10.8) L 05/26/18 04:00 RBC 3.99 Mil/cmm (3.80-5.20) 06/01/18 04:30 Hgb 11.1 gm/dL (12-16) L 06/01/18 04:30 Hct 34.1 % (41.0-60) L 06/01/18 04:30 MCV 85.5 fl (81-100) 06/01/18 04:30 MCH 27.8 pg (27.0-31.0) 06/01/18 04:30 MCHC Differential 32.5 pg (28.0-36.0) 06/01/18 04:30 RDW 13.3 % (11.5-20.0) 06/01/18 04:30 Plt Count 293 Th/cmm (150-400) 06/01/18 04:30 MPV 7.0 fl 06/01/18 04:30 Add Manual Diff YES 05/31/18 04:10 Neutrophils % 74.6 % (40.0-80.0) 06/01/18 04:30 Band Neutrophils % 14 % (0-10) H 06/01/18 04:30 Lymphocytes % 7.9 % (20.0-50.0) L 06/01/18 04:30 Monocytes % 15.9 % (2.0-10.0) H 06/01/18 04:30 Eosinophils % 1.5 % (0.0-5.0) 06/01/18 04:30 Basophils % 0.1 % (0.0-2.0) 06/01/18 04:30 Neutrophils (Manual) 61 % (40-80) 06/01/18 04:30 Lymphocytes 10 % (20-50) L 06/01/18 04:30 Monocytes 15 % (2-10) H 06/01/18 04:30 Eosinophils 0 % (0-5) 06/01/18 04:30 Basophils 0 % (0-3) 06/01/18 04:30 Platelet Estimate ADEQUATE (NORMAL) 05/31/18 04:10 PT 10.8 SECONDS (9.5-11.5) 05/23/18 04:30 INR 1.04 (0.5-1.4) 05/23/18 04:30 PTT (Actin FS) 27.4 SECONDS (26.0-38.0) 05/23/18 04:30 Specimen Source Arterial 06/01/18 13:28 Sample Site Right Radial 06/01/18 13:28 pH 7.37 (7.35-7.45) 06/01/18 13:28 pCO2 45.0 mmHg (35.0-45.0) 06/01/18 13:28 pO2 58.0 mmHg (80.0-100.0) L 06/01/18 13:28 HCO3 25.0 mEq/L (20.0-26.0) 06/01/18 13:28 Base Excess 0.4 mEq/L (-3.0-3.0) 06/01/18 13:28 O2 Saturation 89.0 % (92.0-100.0) L 06/01/18 13:28 Ricky Test YES 06/01/18 13:28 Vent Rate 10 06/01/18 13:28 Inspired O2 100 06/01/18 13:28 Tidal Volume 600 06/01/18 13:28 PEEP 0 06/01/18 13:28 Pressure (ins/psv/peep) 12 06/01/18 13:28 Critical Value E.BOBBY 06/01/18 13:28 Sodium 143 mEq/L (136-145) 06/01/18 04:30 Potassium 4.3 mEq/L (3.5-5.1) 06/01/18 04:30 Chloride 112 mEq/L (98-107) H 06/01/18 04:30 Carbon Dioxide 23.1 mEq/L (21.0-31.0) 06/01/18 04:30 Anion Gap 12.2 (7.0-16.0) 06/01/18 04:30 BUN 35 mg/dL (7-25) H 06/01/18 04:30 Creatinine 0.5 mg/dL (0.6-1.2) L 06/01/18 04:30 Est GFR ( Amer) TNP 06/01/18 04:30 Est GFR (Non-Af Amer) TNP 06/01/18 04:30 BUN/Creatinine Ratio 70.0 06/01/18 04:30 Glucose 151 mg/dL (70-105) H 06/01/18 04:30 POC Glucose 159 MG/DL (70 - 105) H 06/01/18 13:36 Plasma/Ser Osmolality 259 mOsmol/kg (280-301) L 05/23/18 09:55 Whole Bld Lactic Acid 1.23 mmol/L (0.60-1.99) 05/29/18 22:45 Calcium 8.3 mg/dL (8.6-10.3) L 06/01/18 04:30 Phosphorus 2.9 mg/dL (2.5-5.0) 06/01/18 04:30 Magnesium 2.3 mg/dL (1.9-2.7) 06/01/18 04:30 Total Bilirubin 0.5 mg/dL (0.3-1.0) 05/31/18 04:10 Direct Bilirubin 0.14 mg/dL (0.0-0.2) 05/24/18 07:05 AST 14 U/L (13-39) 05/31/18 04:10 ALT 11 U/L (7-52) 05/31/18 04:10 Alkaline Phosphatase 37 U/L (34-104) 05/31/18 04:10 Ammonia 46 umol/L (16-53) 05/25/18 04:00 Total Protein 5.7 gm/dL (6.0-8.3) L 05/31/18 04:10 Albumin 2.7 gm/dL (3.7-5.3) L 05/31/18 04:10 Globulin 3.0 gm/dL 05/31/18 04:10 Albumin/Globulin Ratio 0.9 (1.0-1.8) L 05/31/18 04:10 Triglycerides 74 mg/dL (<150) 05/31/18 04:10 Cholesterol 118 mg/dL (<200) 06/01/18 04:30 TSH 3.21 uIU/ml (0.34-5.60) 05/22/18 17:34 Urine Source CLEAN C 05/22/18 18:55 Urine Color YELLOW 05/22/18 18:55 Urine Clarity HAZY (CLEAR) 05/22/18 18:55 Urine pH 6.0 (4.6 - 8.0) 05/22/18 18:55 Ur Specific Tripp >= 1.030 (1.005-1.030) 05/22/18 18:55 Urine Protein TRACE mg/dL (NEGATIVE) 05/22/18 18:55 Urine Glucose (UA) 100 mg/dL (NEGATIVE) H 05/22/18 18:55 Urine Ketones 40 mg/dL (NEGATIVE) H 05/22/18 18:55 Urine Blood MODERATE (NEGATIVE) H 05/22/18 18:55 Urine Nitrate POSITIVE (NEGATIVE) H 05/22/18 18:55 Urine Bilirubin NEGATIVE (NEGATIVE) 05/22/18 18:55 Urine Urobilinogen 0.2 E.U./dL (0.2 - 1.0) 05/22/18 18:55 Ur Leukocyte Esterase SMALL (NEGATIVE) H 05/22/18 18:55 Urine RBC 0-2 /hpf (0-5) 05/22/18 18:55 Urine WBC 6-10 /hpf (0-5) H 05/22/18 18:55 Ur Epithelial Cells OCCASIONAL /lpf (FEW) 05/22/18 18:55 Urine Bacteria 2+ /hpf (NONE SEEN) H 05/22/18 18:55 Urine Osmolality 583 mOsmol/kg 05/24/18 06:00 Ur Random Sodium 14 mmol/L 05/24/18 06:00 Vancomycin Trough 13.7 ug/mL (5-10) H 05/25/18 08:00 Valproic Acid 29.3 ug/mL (50.0-100.0) L 05/22/18 17:34 - Physical Exam Vitals and I&O: Vital Signs Temp 97.8 F 06/01/18 08:00 Pulse 101 06/01/18 08:00 Resp 19 06/01/18 08:00 BP 110/58 06/01/18 08:00 Pulse Ox 95 06/01/18 08:00 Intake & Output 05/31/18 06/01/18 06/01/18 18:59 06:59 18:59 Intake Total 1243.333 Output Total 825 850 Balance 418.333 -850 Weight (lbs) 87.362 kg 87.362 kg Intake: Intake, IV Amount 1243.333 Multivitamin Inj 10 ml 870.333 Insulin Human Regular 10 units In Dextrose 70% 500 ml In Amino Acids 8.5% 500 ml In Water, Sterile 700 ml @ 70 mls/hr IV . Q24H [facility] Rx#:[id number] Sodium Chloride 0.9% 1, 373.0 000 ml @ 30 mls/hr IV . Q24H [facility] Rx#:[id number] Oral 0 Output: Gastric Drainage 475 450 Urine 350 400 Other: # Bowel Movements 0 Stool Characteristics Soft Brown Weight Source Bedscale Estimated Active Medications: Current Medications Acetaminophen (Tylenol 650mg Supp) 650 mg RC Q4H PRN PRN Reason: PAIN OR TEMP >101 Stop: 07/21/18 22:25 Albuterol/Ipratropium (Duoneb Neb) 3 ml HHN [id number] [facility] Stop: 07/22/18 18:59 Last Admin: 06/01/18 10:30 Dose: Not Given Bisacodyl (Dulcolax 10 Mg Supp) 10 mg RC DAILY [facility] Stop: 07/22/18 12:14 Last Admin: 06/01/18 09:39 Dose: 10 mg Budesonide (Pulmicort) 0.5 mg HHN BIDRT [facility] Stop: 07/22/18 18:59 Last Admin: 06/01/18 07:23 Dose: 0.5 mg Calamine/Phenol (Calmoseptine) 1 appl TP QID PRN PRN Reason: Skin Irritation Stop: 07/25/18 15:43 Last Admin: 05/26/18 17:23 Dose: 1 appl [place] Oil/[place] Balsam/Trypsin (Venelex) 1 appl TP DAILY [facility] Stop: 07/25/18 15:59 Last Admin: 06/01/18 09:39 Dose: 1 appl Chlorhexidine Gluconate (Peridex) 15 ml MM 0800,2000 [facility] Stop: 07/31/18 19:59 Divalproex Sodium (Depakote Dr) 250 mg PO BID [facility]; Protocol Stop: 07/22/18 16:59 Last Admin: 06/01/18 09:41 Dose: Not Given Gabapentin (Neurontin) 300 mg PO TID [facility] Stop: 07/22/18 13:59 Last Admin: 06/01/18 09:40 Dose: Not Given Hydromorphone HCl (Dilaudid) 1 mg IVP Q3H PRN PRN Reason: Severe Pain Stop: 07/31/18 13:19 Multivitamins/Minerals 10 ml/Insulin Human Regular 10 units / Dextrose/ Amino Acids/Electrolytes/ Sterile Water 1,710.1 mls @ 70 mls/hr IV .Q24H [facility] Stop: 06/25/18 15:59 Last Infusion: 05/31/18 18:26 Dose: 70 mls/hr Cefazolin Sodium 1 gm/ Sodium (Chloride) 50 mls @ 100 mls/hr IV Q8HR [facility] Stop: 06/02/18 05:29 Metronidazole (Flagyl) 500 mg in 100 mls @ 100 mls/hr IV Q8HR [facility] Stop: 06/02/18 05:59 Sodium Chloride (Nacl 0.9%) 1,000 mls @ 100 mls/hr IV .Q10H [facility] Stop: 07/31/18 13:29 Insulin Aspart (Novolog Insulin Sliding Scale) 0 units SUBQ Q6HR [facility]; Protocol Stop: 07/22/18 11:59 Last Admin: 06/01/18 11:47 Dose: Not Given Lactobacillus Rhamnosus (Culturelle 15b) 1 each PO DAILY [facility] Stop: 07/25/18 08:59 Last Admin: 06/01/18 09:40 Dose: Not Given Lorazepam (Ativan) 0.5 mg IVP Q6H PRN PRN Reason: AGITATION Stop: 07/30/18 15:47 Miscellaneous (Probiotic Screen) 1 ea PRN PRN PRN Reason: PROTOCOL Stop: 07/24/18 14:14 Miscellaneous (Ppn Per Pharmacy) 1 ea PRN PRN PRN Reason: PROTOCOL Stop: 07/25/18 16:42 Morphine Sulfate (Morphine) 2 mg IVP Q3H PRN PRN Reason: Pain (Severe) Stop: 07/21/18 22:22 Last Admin: 05/31/18 20:57 Dose: 2 mg Nystatin (Nystop) 0 units TP BID [facility] Stop: 07/25/18 16:59 Last Admin: 06/01/18 09:40 Dose: 100,000 units Ondansetron HCl (Zofran) 4 mg IV Q6H PRN PRN Reason: Nausea / Vomiting Stop: 07/21/18 22:24 Last Admin: 05/25/18 11:11 Dose: 4 mg General: No acute distress HEENT: Other (ETT/VENT) Cardiovascular: Regular rate Lungs: Normal air movement Abdomen: Distended, Other (MIDLINE WOUND WITH VAC, 2 SONIA DRAINS) - Procedures Procedures: Procedures Procedure Code Date EMERGENCY DEPT VISIT 70384 02/03/00 IMMOBILIZ/WOUND ATTN NEC 93.59 08/01/01 Assessment/Plan - Problem List Patient Problems: All Active Problems Bowel obstruction (Acute) K56.609 Bowel obstruction (Acute) K56.609 PERIPHERAL TREMORS WITH DIAPHORESIS (Acute) - Assessment Assessment: IMPRESSION: 1. Bowel obstruction large and small - s/p ex lap 1/2 with partial resections of small and large intestines, ventral hernia repair. 2. Post op respiratory failure. RECS: -Post op care as per surgeon. -Abx. -consider TPN. -monitor labs. -vent care as per Pulm.
--- NOTE | 2018-06-01 14:38 | Operative Report ---
DATE OF SURGERY: PREOPERATIVE DIAGNOSIS: Multiple incarcerated segments of small bowel and colon in the ventral hernia sacs, which was a honeycomb type hernia patterns that was about at least 5 different hernia sacs and the abdominal wall from the supraumbilical to the infraumbilical site. POSTOPERATIVE DIAGNOSIS: With colon and small bowel incarcerated with omentum in multiple sites at the supraumbilical and umbilical level. PROCEDURE PERFORMED: Exploratory laparotomy, release of small-bowel obstruction with small bowel resection in the proximal small bowel and then enterorrhaphy in the more middle small bowel and a large bowel resection in the transverse colon with extensive lysis of adhesions, removal of multiple hernia sacs themselves with the EnSeal and omentum that was incarcerated within compartments of the honeycomb-type pattern of multiple hernias through an incision that was closed with metal wires that was done over 30 years ago. We placed a 20 x 15 cm ACell biologic graft for reinforcement of the hernia repair and a 20 cm Prevena dressing over the midline incision after closure. Two SONIA drains were placed, one on the left intraperitoneally and on the right subcutaneously post-resection of all those hernia sacs. This was done under general anesthesia with assisting Dr. Hoff. SURGEON: Homero Florez MD ENGINE HEAD REPAIRER: Dr. Hoff. ANESTHESIOLOGIST: Dr.Kavuri John INDICATIONS FOR SURGERY: The patient had originally been very sick and was DNR on arrival, but after discussion with the family and the patient, then decided to change the status to full code and requested for surgery to be performed. At this point, the patient was brought to surgery and an exploratory laparotomy was performed. PROCEDURE: The incision was about 20 cm long and the defect involved bowel that was incarcerated and strangulated that would not open up after release of adhesions. The first resection of small bowel was a segment of approximately, I would say, 10-15 cm and sent to pathology for analysis. We did a [id number] anastomosis with a CHRISTIANO-75, reinforcing it with 3-0 silk pop-off sutures. We then proceeded for removal of approximately 1 foot of colon that was stuck with omentum and was outside the peritoneal cavity and was also strangulated. We did a [id number] anastomosis with the colon CHRISTIANO-75 and stapled off the enterotomy sites and secured it with a 3-0 silk pop-off sutures. As we ran the small bowel, I had to do an enterorrhaphy of a very delicate small bowel, we did a CHRISTIANO-75 enterorrhaphy stable [id number] and we then proceeded to make sure the NG tube was in good place and suctioned out about 500 mL of juices from the stomach was bile and secured the NG tube in place. We suction irrigated a lot of the peritoneal cavity with antibiotic solution and closed with a double-stranded PDS suture after placing the 20 x 15 cm biologic graft (Acell) with #1 Vicryl, PDS suture. I then closed the subcutaneous tissue with 2-0 Vicryl suture and placing a SONIA drain also in the intraperitoneal exiting through the left side and through the right side a subcutaneous SONIA drain was secured to the skin with silk and the uzma were used for closing of the skin and Prevena dressing on top of that. The patient tolerated the procedure well. Estimated blood loss was approximately 100 mL. All instrument, sponge count, and needle counts were correct. JOB# [id number] MTDD
[2018-06-01] MEDS: Sodium Chloride 0.9% 1,000 ML IV SCH (14:52)
[2018-06-01 16:25] LABS: HEMOGLOBIN 13.3 gm/dL (12-16)
[2018-06-01 16:39] LABS: HEMATOCRIT 41.7 % (41.0-60)
[2018-06-01] MEDS ORDERED: Diltiazem 5 mg/mL 5mL Vial IVP ONE (17:11)
[2018-06-01] MEDS ORDERED: Diltiazem 5 mg/mL 25mL Vial IV ONE ×2 (17:15→17:21)
[2018-06-01] MEDS ORDERED: Diltiazem 5 mg/mL 5mL Vial IVP STA (17:16)
[2018-06-01 17:52] LABS: pH 7.45 (7.35-7.45)
[2018-06-01] MEDS ORDERED: Norepinephrine 4 mg/4mL Vial IV ONE ×3 (17:52→23:07)
[2018-06-01] MEDS ORDERED: metroNIDAZOLE 500mg/NS 100mL 500 MG/100 ML BAG IV SCH (21:00)
[2018-06-01] MEDS: Albumin 25% 25gm/100mL 25 GM/100 ML BTL IV SCH ×2 (21:00→21:59)
[2018-06-01] MEDS: ceFAZolin 1 GM in Sodium Chloride 0.9% 50 ML IV SCH (21:53)
--- NOTE | 2018-06-01 22:08 | Consultation ---
DATE OF CONSULTATION: 06/01/[address] Gregory. HISTORY OF PRESENT ILLNESS: This is an 82-year-old female patient who was admitted to the hospital with incarcerated ventral hernia with small-bowel obstruction and large bowel obstruction. The patient had surgery with partial resection of the small intestine, large intestine. At the present time, the patient is on ventilator and the patient developed supraventricular tachycardia at the rate of 200 per minute, hence Cardiology consult is requested. PAST MEDICAL HISTORY: Diabetes, hypertension, hyperlipidemia, dementia, degenerative joint disease, osteoporosis and psychotic disorder. FAMILY HISTORY: Unremarkable. SOCIAL HISTORY: No history of smoking or alcohol abuse. ALLERGIES: None. PHYSICAL EXAMINATION: VITAL SIGNS: Blood pressure 130/80, pulse 200 and respiration on ventilator. HEAD: Normocephalic. No lumps or bumps. EYES: Pupils equal and reactive to light. Fundi show AV nicking, sclerae white, conjunctivae pink. NECK: Carotid 2+. Normal upstroke. JVD flat. Thyroid not palpable. Lymph nodes not palpable. CHEST: Shows increased AP diameter. No kyphosis or scoliosis. LUNGS: Bilateral bronchovesicular breath sounds. Occasional wheeze. No rales. HEART: PMI fifth intercostal space with lateral to midclavicular line. S1 and S2. No S3, soft S4. ABDOMEN: Soft. Liver and spleen not palpable. No organomegaly. Bowel sounds active. The patient has tracing for the surgery in the abdomen, abdominal ileus. NEUROLOGIC: Unremarkable. EXTREMITIES: Peripheral pulses 1+. No pedal edema. CLINICAL IMPRESSION: 1. Acute respiratory failure, on ventilator. 2. Supraventricular tachycardia. 3. Incarcerated ventral hernia with small-bowel obstruction, large-bowel obstruction with resection. 4. Hypertension. 5. Osteoporosis. 6. Diabetes mellitus type 2. 7. Hyperlipidemia. 8. Psychotic disorder. 9. Dementia. PLAN: At the present time, we will continue vent management. Start the patient on amiodarone drip to control the heart rate. Will also get an echocardiogram for left ventricular function. JOB# [id number]
[2018-06-01] MEDS: Meropenem 500 MG in Sodium Chloride 0.9% 100 ML IV SCH (22:36)
[2018-06-02] MEDS: INSULIN ASPART SLIDING SCALE 100 UNITS/ML UNIT SUBQ SCH ×5 (00:19→17:41)
[2018-06-02] MEDS: TPN 8.5%-70% CUSTOM IV SCH ×2 (01:44→16:00)
[2018-06-02] MEDS ORDERED: Norepinephrine 4 mg/4mL Vial IV ONE (03:10)
[2018-06-02] MEDS: ceFAZolin 1 GM in Sodium Chloride 0.9% 50 ML IV SCH (04:09)
[2018-06-02] MEDS: Meropenem 500 MG in Sodium Chloride 0.9% 100 ML IV SCH ×3 (04:48→21:09)
[2018-06-02 05:11] LABS: MEAN CELL VOLUME 85.1 fl (81-100); MEAN CORPUSCULAR HEMOGLOBIN 28.8 pg (27.0-31.0); MEAN CORPUSCULAR HGB CONC 33.9 pg (28.0-36.0); MEAN PLATELET VOLUME 7.4 fl; PLATELET COUNT 230 Th/cmm (150-400); RED BLOOD COUNT 3.08 Mil/cmm (3.80-5.20); RED CELL DISTRIBUTION WIDTH 13.2 % (11.5-20.0)
[2018-06-02 05:48] LABS: HEMATOCRIT 26.2 % (41.0-60); HEMOGLOBIN 8.9 gm/dL (12-16)
[2018-06-02 05:56] LABS: BAND NEUTROPHILE 26 % (0-10); LYMPHOCYTE 1 % (20-50); NEUTROPHILS 73 % (40-80); PLATELET ESTIMATE ADEQUATE (NORMAL)
[2018-06-02 06:00] LABS: ALB/GLOB RATIO 1.2 (1.0-1.8); ALBUMIN 2.5 gm/dL (3.7-5.3); ALKALINE PHOSPHATASE 26 U/L (34-104); ANION GAP 14.2 (7.0-16.0); BILIRUBIN,TOTAL 0.6 mg/dL (0.3-1.0); BUN - UREA NITROGEN 37 mg/dL (7-25); CALCIUM SERUM 7.7 mg/dL (8.6-10.3); CARBON DIOXIDE 21.1 mEq/L (21.0-31.0); CHLORIDE 104 mEq/L (98-107); MAGNESIUM 1.6 mg/dL (1.9-2.7); PHOSPHOROUS 2.4 mg/dL (2.5-5.0); POTASSIUM SERUM 3.3 mEq/L (3.5-5.1); SGOT 19 U/L (13-39); SGPT/ALT 10 U/L (7-52); SODIUM SERUM 136 mEq/L (136-145); TOTAL PROTEIN,SERUM 4.6 gm/dL (6.0-8.3)
[2018-06-02 06:11] LABS: GLUCOSE 499 mg/dL (70-105)
[2018-06-02] MEDS: Albuterol/Ipratropium Neb 3 ML AERS HHN SCH ×4 (07:07→18:36)
[2018-06-02] MEDS: Chlorhexidine Gluconate 0.12% 15mL Mouthwash MM SCH ×3 (07:22→20:55)
[2018-06-02] MEDS ORDERED: Potassium Phosphate 30 MMOLE in Sodium Chloride 0.9% 250 ML IV ONE (07:31)
[2018-06-02] MEDS: Budesonide 0.5 Mg/2 mL Ud HHN SCH ×2 (07:34→18:36)
--- NOTE | 2018-06-02 08:34 | Diagnostic Imaging Report ---
CHEST X-RAY: AP view INDICATION: PICC line placement COMPARISON: Chest x-ray 05/25/2018 FINDINGS: Right PICC line is seen with tip in the SVC. ET tube is seen with tip along the right mainstem bronchus. Recommend 3 cm pullback. NG tube is visualized in the stomach. There is incomplete visualization of the left hemithorax. Mild atelectatic changes of the left lung are noted. Possible developing infiltrates. IMPRESSION: ET tube with tip within the right mainstem bronchus. Recommend 3 cm pullback and repeat x-ray for further assessment. Increased hazy density of the left lung with probable developing atelectasis and possible infiltrate. Right PICC line with tip in SVC. Results were communicated to the referring team on 06/02/2018 at 8:30 AM.
[2018-06-02] MEDS: Venelex 60gm Tube TP SCH (09:00)
[2018-06-02] MEDS: Lactobacillus Rhamnosus GG 15 Billion CFU CAP.SPRINK PO SCH (09:00)
[2018-06-02] MEDS ORDERED: Mag Sulfate 2gm/50mL Premix 2 GM/50 ML BAG IV ONE ×2 (09:00→19:31)
[2018-06-02 09:03] LABS: pH 7.44 (7.35-7.45)
[2018-06-02 09:04] LABS: ALLEN TEST Positive
--- NOTE | 2018-06-02 10:27 | Diagnostic Imaging Report ---
CHEST X-RAY: AP view INDICATION: ET tube readjustment COMPARISON: Chest x-ray 06/01/2018 at 2110 FINDINGS: ET tube has been readjusted with tip now 2.8 cm above the Leni. Right PICC line is seen with tip in the right atrium. NG tube is visualized the stomach. Left lung hazy infiltrates are noted with small left effusion. Heart size normal. IMPRESSION: Interval ET tube adjustment with tip now 2.8 cm above the Leni Right PICC line with tip now in the right atrium Left lung hazy infiltrates and small left effusion.
[2018-06-02] MEDS: NYSTATIN 100000 UNITS/GM POWD TP SCH ×2 (13:48→19:01)
[2018-06-02] MEDS: Sodium Chloride 0.9% 1,000 ML IV SCH (19:00)
--- NOTE | 2018-06-02 20:45 | General Progress Note ---
Subjective - Review of Systems Service Date: 06/02/18 Subjective: Patient seen and examined remains on vent awake no distress noted Objective - Results Result Diagrams: 06/02/18 04:40 06/02/18 04:40 Recent Labs: Laboratory Last Values WBC 18.0 Th/cmm (4.8-10.8) H 06/02/18 04:40 Corrected WBC (auto) 3.0 Th/cmm (4.8-10.8) L 05/26/18 04:00 RBC 3.08 Mil/cmm (3.80-5.20) L 06/02/18 04:40 Hgb 8.9 gm/dL (12-16) L D 06/02/18 04:40 Hct 26.2 % (41.0-60) L D 06/02/18 04:40 MCV 85.1 fl (81-100) 06/02/18 04:40 MCH 28.8 pg (27.0-31.0) 06/02/18 04:40 MCHC Differential 33.9 pg (28.0-36.0) 06/02/18 04:40 RDW 13.2 % (11.5-20.0) 06/02/18 04:40 Plt Count 230 Th/cmm (150-400) 06/02/18 04:40 MPV 7.4 fl 06/02/18 04:40 Add Manual Diff YES 06/02/18 04:40 Neutrophils % 74.6 % (40.0-80.0) 06/01/18 04:30 Band Neutrophils % 26 % (0-10) H 06/02/18 04:40 Lymphocytes % 7.9 % (20.0-50.0) L 06/01/18 04:30 Monocytes % 15.9 % (2.0-10.0) H 06/01/18 04:30 Eosinophils % 1.5 % (0.0-5.0) 06/01/18 04:30 Basophils % 0.1 % (0.0-2.0) 06/01/18 04:30 Neutrophils (Manual) 73 % (40-80) 06/02/18 04:40 Lymphocytes 1 % (20-50) L 06/02/18 04:40 Monocytes 15 % (2-10) H 06/01/18 04:30 Eosinophils 0 % (0-5) 06/01/18 04:30 Basophils 0 % (0-3) 06/01/18 04:30 Platelet Estimate ADEQUATE (NORMAL) 06/02/18 04:40 PT 10.8 SECONDS (9.5-11.5) 05/23/18 04:30 INR 1.04 (0.5-1.4) 05/23/18 04:30 PTT (Actin FS) 27.4 SECONDS (26.0-38.0) 05/23/18 04:30 Specimen Source Arterial 06/02/18 08:50 Sample Site Right Radial 06/02/18 08:50 pH 7.44 (7.35-7.45) 06/02/18 08:50 pCO2 36.0 mmHg (35.0-45.0) 06/02/18 08:50 pO2 155.0 mmHg (80.0-100.0) H 06/02/18 08:50 HCO3 25.4 mEq/L (20.0-26.0) 06/02/18 08:50 Base Excess 0.6 mEq/L (-3.0-3.0) 06/02/18 08:50 O2 Saturation 99.0 % (92.0-100.0) 06/02/18 08:50 Ricky Test Positive 06/02/18 08:50 Vent Rate 12 06/02/18 08:50 Inspired O2 50 06/02/18 08:50 Tidal Volume 600 06/02/18 08:50 PEEP 0 06/02/18 08:50 Pressure (ins/psv/peep) N/A 06/02/18 08:50 Critical Value DM 06/02/18 08:50 Sodium 136 mEq/L (136-145) 06/02/18 04:40 Potassium 3.3 mEq/L (3.5-5.1) L 06/02/18 04:40 Chloride 104 mEq/L (98-107) 06/02/18 04:40 Carbon Dioxide 21.1 mEq/L (21.0-31.0) 06/02/18 04:40 Anion Gap 14.2 (7.0-16.0) 06/02/18 04:40 BUN 37 mg/dL (7-25) H 06/02/18 04:40 Creatinine 1.0 mg/dL (0.6-1.2) 06/02/18 04:40 Est GFR ( Amer) TNP 06/02/18 04:40 Est GFR (Non-Af Amer) TNP 06/02/18 04:40 BUN/Creatinine Ratio 37.0 06/02/18 04:40 Glucose 499 mg/dL (70-105) H* 06/02/18 04:40 POC Glucose 281 MG/DL (70 - 105) H 06/02/18 17:36 Plasma/Ser Osmolality 259 mOsmol/kg (280-301) L 05/23/18 09:55 Whole Bld Lactic Acid 2.51 mmol/L (0.60-1.99) H* 06/02/18 09:15 Calcium 7.7 mg/dL (8.6-10.3) L 06/02/18 04:40 Phosphorus 2.4 mg/dL (2.5-5.0) L 06/02/18 04:40 Magnesium 1.6 mg/dL (1.9-2.7) L 06/02/18 04:40 Total Bilirubin 0.6 mg/dL (0.3-1.0) 06/02/18 04:40 Direct Bilirubin 0.14 mg/dL (0.0-0.2) 05/24/18 07:05 AST 19 U/L (13-39) 06/02/18 04:40 ALT 10 U/L (7-52) 06/02/18 04:40 Alkaline Phosphatase 26 U/L (34-104) L 06/02/18 04:40 Ammonia 46 umol/L (16-53) 05/25/18 04:00 Total Protein 4.6 gm/dL (6.0-8.3) L 06/02/18 04:40 Albumin 2.5 gm/dL (3.7-5.3) L 06/02/18 04:40 Globulin 2.1 gm/dL 06/02/18 04:40 Albumin/Globulin Ratio 1.2 (1.0-1.8) 06/02/18 04:40 Prealbumin 9 mg/dL (9-32) 05/31/18 04:10 Triglycerides 74 mg/dL (<150) 05/31/18 04:10 Cholesterol 118 mg/dL (<200) 06/01/18 04:30 TSH 3.21 uIU/ml (0.34-5.60) 05/22/18 17:34 Urine Source CLEAN C 05/22/18 18:55 Urine Color YELLOW 05/22/18 18:55 Urine Clarity HAZY (CLEAR) 05/22/18 18:55 Urine pH 6.0 (4.6 - 8.0) 05/22/18 18:55 Ur Specific [place] >= 1.030 (1.005-1.030) 05/22/18 18:55 Urine Protein TRACE mg/dL (NEGATIVE) 05/22/18 18:55 Urine Glucose (UA) 100 mg/dL (NEGATIVE) H 05/22/18 18:55 Urine Ketones 40 mg/dL (NEGATIVE) H 05/22/18 18:55 Urine Blood MODERATE (NEGATIVE) H 05/22/18 18:55 Urine Nitrate POSITIVE (NEGATIVE) H 05/22/18 18:55 Urine Bilirubin NEGATIVE (NEGATIVE) 05/22/18 18:55 Urine Urobilinogen 0.2 E.U./dL (0.2 - 1.0) 05/22/18 18:55 Ur Leukocyte Esterase SMALL (NEGATIVE) H 05/22/18 18:55 Urine RBC 0-2 /hpf (0-5) 05/22/18 18:55 Urine WBC 6-10 /hpf (0-5) H 05/22/18 18:55 Ur Epithelial Cells OCCASIONAL /lpf (FEW) 05/22/18 18:55 Urine Bacteria 2+ /hpf (NONE SEEN) H 05/22/18 18:55 Urine Osmolality 583 mOsmol/kg 05/24/18 06:00 Ur Random Sodium 14 mmol/L 05/24/18 06:00 Vancomycin Trough 13.7 ug/mL (5-10) H 05/25/18 08:00 Valproic Acid 29.3 ug/mL (50.0-100.0) L 05/22/18 17:34 Blood Type O NEGATIVE 06/01/18 14:45 Antibody Screen NEGATIVE 06/01/18 14:45 - Physical Exam Vitals and I&O: Vital Signs Temp 99.9 F 06/02/18 18:00 Pulse 108 06/02/18 20:38 Resp 16 06/02/18 19:00 BP 119/51 06/02/18 19:30 Pulse Ox 98 06/02/18 20:38 Intake & Output 06/02/18 06/02/18 06/03/18 06:59 18:59 06:59 Intake Total 2259.917 2125.260 1240 Output Total 1005 1430 Balance 1584.633 6904.260 -190 Weight (lbs) 87.634 kg 92.986 kg Intake: Intake, IV Amount 2259.917 2125.260 Albumin 25% 25gm/100mL 25 149.167 gm In 100 ml @ 50 mls/hr IV Q2H [facility] Rx#:[id number] Amiodarone 450 mg In 259.000 42.575 Dextrose 5% 250 ml @ Titrate IV TITR [facility] Rx#: [id number] Meropenem 500 mg In 200 100 Sodium Chloride 0.9% 100 ml @ 100 mls/hr IV Q8H [facility] Rx#:[id number] Multivitamin Inj 10 ml 998.667 Insulin Human Regular 10 units In Dextrose 70% 500 ml In Amino Acids 8.5% 500 ml In Water, Sterile 700 ml @ 70 mls/hr IV . Q24H [facility] Rx#:[id number] Norepinephrine 4 mg In 508.000 675.386 Dextrose 5% 250 ml @ Titrate IV TITR [facility]N Rx#: [id number] Phenylephrine HCl 10 mg 93.75 In Sodium Chloride 0.9% 250 ml @ 50 MCG/MIN 75 mls/hr IV TITR [facility] Rx#: [id number] Propofol 1,000 mg In 100 58.632 ml @ Per Protocol IV TITR [facility] Rx#:[id number] Sodium Chloride 0.9% 1, 1000 000 ml @ 100 mls/hr IV . Q10H [facility] Rx#:[id number] Vancomycin HCl 1 gm In 250 Sodium Chloride 0.9% 250 ml @ 165 mls/hr IV Q24H [facility] Rx#:[id number] ceFAZolin 1 gm In Sodium 50 Chloride 0.9% 50 ml @ 100 mls/hr IV Q8HR [facility] Rx#: [id number] TPN/PPN 540 Other 700 Output: Gastric Drainage 750 500 Drainage 30 80 Left Lower Abdomen 10 20 Right Lower Abdomen 20 60 Urine 225 850 Other: Weight Source Bedscale Bedscale Active Medications: Current Medications Acetaminophen (Tylenol 650mg Supp) 650 mg RC Q4H PRN PRN Reason: PAIN OR TEMP >101 Stop: 07/21/18 22:25 Albuterol/Ipratropium (Duoneb Neb) 3 ml HHN [id number] [facility] Stop: 07/22/18 18:59 Last Admin: 06/02/18 18:36 Dose: 3 ml Bisacodyl (Dulcolax 10 Mg Supp) 10 mg RC DAILY [facility] Stop: 07/22/18 12:14 Last Admin: 06/02/18 09:00 Dose: Not Given Budesonide (Pulmicort) 0.5 mg HHN BIDRT [facility] Stop: 07/22/18 18:59 Last Admin: 06/02/18 18:36 Dose: 0.5 mg Calamine/Phenol (Calmoseptine) 1 appl TP QID PRN PRN Reason: Skin Irritation Stop: 07/25/18 15:43 Last Admin: 05/26/18 17:23 Dose: 1 appl [place] Oil/Cymro Balsam/Trypsin (Venelex) 1 appl TP DAILY [facility] Stop: 07/25/18 15:59 Last Admin: 06/02/18 09:00 Dose: Not Given Chlorhexidine Gluconate (Peridex) 15 ml MM 0800,1999 [facility] Stop: 07/31/18 19:59 Last Admin: 06/02/18 08:00 Dose: 15 ml Divalproex Sodium (Depakote Dr) 250 mg PO BID [facility]; Protocol Stop: 07/22/18 16:59 Last Admin: 06/02/18 19:02 Dose: Not Given Gabapentin (Neurontin) 300 mg PO TID [facility] Stop: 07/22/18 13:59 Last Admin: 06/02/18 13:47 Dose: Not Given Hydromorphone HCl (Dilaudid) 1 mg IVP Q3H PRN PRN Reason: Severe Pain Stop: 07/31/18 13:19 Multivitamins/Minerals 10 ml/Insulin Human Regular 10 units / Dextrose/ Amino Acids/Electrolytes/ Sterile Water 1,710.1 mls @ 70 mls/hr IV .Q24H [facility] Stop: 06/25/18 15:59 Last Admin: 06/02/18 16:00 Dose: 70 mls/hr Sodium Chloride (Nacl 0.9%) 1,000 mls @ 100 mls/hr IV .Q10H [facility] Stop: 07/31/18 13:29 Last Infusion: 06/01/18 19:00 Dose: Infused Amiodarone HCl 450 mg/ (Dextrose) 259 mls @ 0 mls/hr IV TITR [facility]; Protocol Stop: 07/31/18 20:14 Last Titration: 06/02/18 18:57 Dose: 0.5 mg/min, 17.26 mls/hr Norepinephrine Bitartrate 4 mg (/ Dextrose) 254 mls @ 0 mls/hr IV TITR PRN; Protocol PRN Reason: BP MAINTENANCE (PER PROTOCOL) Stop: 07/31/18 17:54 Last Titration: 06/02/18 18:52 Dose: 12 mcg/min, 45.72 mls/hr Propofol (Diprivan) 1,000 mg in 100 mls @ 0 mls/hr IV TITR [facility]; Protocol Stop: 07/31/18 18:43 Last Admin: 06/02/18 09:28 Dose: 8 mcg/kg/min, 4.193 mls/hr Phenylephrine HCl 10 mg/ (Sodium Chloride) 250 mls @ 75 mls/hr IV TITR [facility]; Protocol Stop: 07/31/18 20:44 Last Titration: 06/01/18 22:00 Dose: 0 mcg/min, 0 mls/hr Meropenem 500 mg/ Sodium (Chloride) 100 mls @ 100 mls/hr IV Q8H [facility] Stop: 07/31/18 20:59 Last Infusion: 06/02/18 18:02 Dose: Infused Vancomycin HCl 1 gm/ Sodium (Chloride) 250 mls @ 165 mls/hr IV Q24H [facility] Stop: 08/01/18 09:59 Last Infusion: 06/02/18 18:03 Dose: Infused Insulin Aspart (Novolog Insulin Sliding Scale) 0 units SUBQ Q6HR [facility]; Protocol Stop: 07/22/18 11:59 Last Admin: 06/02/18 17:41 Dose: 6 units Lactobacillus Rhamnosus (Culturelle 15b) 1 each PO DAILY [facility] Stop: 07/25/18 08:59 Last Admin: 06/02/18 09:00 Dose: Not Given Lorazepam (Ativan) 0.5 mg IVP Q6H PRN PRN Reason: AGITATION Stop: 07/30/18 15:47 Miscellaneous (Probiotic Screen) 1 ea MC PRN PRN PRN Reason: PROTOCOL Stop: 07/24/18 14:14 Miscellaneous (Ppn Per Pharmacy) 1 ea PRN PRN PRN Reason: PROTOCOL Stop: 07/25/18 16:42 Miscellaneous (Vancomycin Iv Per Pharmacy) 1 ea PRN [facility] Stop: 07/31/18 20:44 Morphine Sulfate (Morphine) 2 mg IVP Q3H PRN PRN Reason: Pain (Severe) Stop: 07/21/18 22:22 Last Admin: 05/31/18 20:57 Dose: 2 mg Nystatin (Nystop) 0 units TP BID [facility] Stop: 07/25/18 16:59 Last Admin: 06/02/18 19:01 Dose: Not Given Ondansetron HCl (Zofran) 4 mg IV Q6H PRN PRN Reason: Nausea / Vomiting Stop: 07/21/18 22:24 Last Admin: 05/25/18 11:11 Dose: 4 mg General: No acute distress HEENT: Other (ETT/VENT) Neck: Supple Cardiovascular: Regular rate Lungs: Clear to auscultation Abdomen: Soft, no Distended - Procedures Procedures: Procedures Procedure Code Date EMERGENCY DEPT VISIT 87155 02/03/00 EXCISION OF SMALL INTESTINE, PERC ENDO APPROACH [id number] 05/22/18 EXCISION OF TRANSVERSE COLON, PERC ENDO APPROACH [id number] 05/22/18 IMMOBILIZ/WOUND ATTN NEC 93.59 08/01/01 RELEASE SMALL INTESTINE, OPEN APPROACH [id number] 05/22/18 REPAIR SMALL INTESTINE, PERCUTANEOUS ENDOSCOPIC APPROACH [id number] 05/22/18 RESPIRATORY VENTILATION, LESS THAN 24 CONSECUTIVE HOURS [id number] 05/22/18 Assessment/Plan - Problem List Patient Problems: All Active Problems Bowel obstruction (Acute) K56.609 Bowel obstruction (Acute) K56.609 PERIPHERAL TREMORS WITH DIAPHORESIS (Acute) - Assessment Assessment: Small bowel obstruction s/p EXP LAP Incarcerated vental herania s/p repair Post op respiratory failure Pnemonia Septic shock - Plan Plan: Titrate vasopressor Titrate vent support IV fluids Broad sprectum antibiotics Monitor I/O Pain control Post op care Monitor lab and vitals DVT prophylaxis Nutritional Asmnt/Malnutr-PDOC - Dietary Evaluation Malnutrition Findings (Please click <Entered> for more info): Nutritional Asmnt/Malnutrition Start: 05/23/18 16: 41 Text: Status: Complete Freq: Protocol: Document 05/23/18 16:41 LCHENG (Rec: 05/23/18 16:54 [email or web address] [id number]) Nutritional Asmnt/Malnutrition Patient General Information Nutritional Screening High Risk Consult Diagnosis bowel obstruction Pertinent Medical Hx/Surgical Hx HTN, dyslipidemia, depression, anxiety, impulse disorder Subjective Information Consult received for elevated glucose 249. pt admitted for abdominal pain. Pt seen resting in bed at time of visit. Pt is NPO, NGT on suction. Current Diet Order/ Nutrition Support NPO Pertinent Medications novolot, piperacillin, zofran, piperacillin, nacl Pertinent Labs 05/23 Na 120, Cl 89, Cr 0.5, glucsose 241, alb 3.4 Nutritional Hx/Data Height 1.63 m Height (Calculated Centimeters) 162.6 Current Weight (lbs) 77.111 kg Weight (Calculated Kilograms) 77.1 Weight (Calculated Grams) 33304.7 [place] Body Weight 120 Body Mass Index (BMI) 29.2 Weight Status Overweight GI Symptoms GI Symptoms None Last BM not indicated Difficult in: None Skin Integrity/Comment: ecchymosis Current %PO Negligible < 25% Estimated Nutritional Goals BEE in Kcals: Using Current wt Calories/Kcals/Kg 23-27 Kcals Calculated Protein: Using Current wt Protein g/k.8-1 Protein Calculated -77 Fluid: ml 5369-4411 Nutritional Problem 2. Problem Problem altered nutrition related labs Etiology hyperglycemia Signs/Symptoms: glucose 241-249 1. Problem Problem inadequate food intake Etiology GI dysfunction Signs/Symptoms: pt on NPO Malnutrition Alert Is there a minimum of two criteria No selected? Query Text:Check all the applicable criteria. A minimum of two criteria are recommended for diagnosis of either severe or non-severe malnutrition. Malnutrition Related to Morbid Obesity Malnutrition related to morbid obesity No Intervention/Recommendation Comments 1. Monitor NPO status. Recommend clear liquid diet with Ensure Clear TID if diet advanced when medically appropriate 2. Monitor GI, wt, labs and skin integrity 3. F/U as high risk in 2-3 days Expected Outcomes/Goals Expected Outcomes/Goals 1. oral diet initiated in 2-3 days 2. Wt stability, skin to remain intact, labs to approach WNL.
--- NOTE | 2018-06-02 22:42 | GI Progress Note ---
Subjective - Review of Systems Service Date: 06/02/18 Subjective: GI NOTE EVENTS NOTED. REMAINS ON VENT. ON PRESSOR. Objective - Results Result Diagrams: 06/02/18 04:40 06/02/18 04:40 Recent Labs: Laboratory Last Values WBC 18.0 Th/cmm (4.8-10.8) H 06/02/18 04:40 Corrected WBC (auto) 3.0 Th/cmm (4.8-10.8) L 05/26/18 04:00 RBC 3.08 Mil/cmm (3.80-5.20) L 06/02/18 04:40 Hgb 8.9 gm/dL (12-16) L D 06/02/18 04:40 Hct 26.2 % (41.0-60) L D 06/02/18 04:40 MCV 85.1 fl (81-100) 06/02/18 04:40 MCH 28.8 pg (27.0-31.0) 06/02/18 04:40 MCHC Differential 33.9 pg (28.0-36.0) 06/02/18 04:40 RDW 13.2 % (11.5-20.0) 06/02/18 04:40 Plt Count 230 Th/cmm (150-400) 06/02/18 04:40 MPV 7.4 fl 06/02/18 04:40 Add Manual Diff YES 06/02/18 04:40 Neutrophils % 74.6 % (40.0-80.0) 06/01/18 04:30 Band Neutrophils % 26 % (0-10) H 06/02/18 04:40 Lymphocytes % 7.9 % (20.0-50.0) L 06/01/18 04:30 Monocytes % 15.9 % (2.0-10.0) H 06/01/18 04:30 Eosinophils % 1.5 % (0.0-5.0) 06/01/18 04:30 Basophils % 0.1 % (0.0-2.0) 06/01/18 04:30 Neutrophils (Manual) 73 % (40-80) 06/02/18 04:40 Lymphocytes 1 % (20-50) L 06/02/18 04:40 Monocytes 15 % (2-10) H 06/01/18 04:30 Eosinophils 0 % (0-5) 06/01/18 04:30 Basophils 0 % (0-3) 06/01/18 04:30 Platelet Estimate ADEQUATE (NORMAL) 06/02/18 04:40 PT 10.8 SECONDS (9.5-11.5) 05/23/18 04:30 INR 1.04 (0.5-1.4) 05/23/18 04:30 PTT (Actin FS) 27.4 SECONDS (26.0-38.0) 05/23/18 04:30 Specimen Source Arterial 06/02/18 08:50 Sample Site Right Radial 06/02/18 08:50 pH 7.44 (7.35-7.45) 06/02/18 08:50 pCO2 36.0 mmHg (35.0-45.0) 06/02/18 08:50 pO2 155.0 mmHg (80.0-100.0) H 06/02/18 08:50 HCO3 25.4 mEq/L (20.0-26.0) 06/02/18 08:50 Base Excess 0.6 mEq/L (-3.0-3.0) 06/02/18 08:50 O2 Saturation 99.0 % (92.0-100.0) 06/02/18 08:50 Ricky Test Positive 06/02/18 08:50 Vent Rate 12 06/02/18 08:50 Inspired O2 50 06/02/18 08:50 Tidal Volume 600 06/02/18 08:50 PEEP 0 06/02/18 08:50 Pressure (ins/psv/peep) N/A 06/02/18 08:50 Critical Value DM 06/02/18 08:50 Sodium 136 mEq/L (136-145) 06/02/18 04:40 Potassium 3.3 mEq/L (3.5-5.1) L 06/02/18 04:40 Chloride 104 mEq/L (98-107) 06/02/18 04:40 Carbon Dioxide 21.1 mEq/L (21.0-31.0) 06/02/18 04:40 Anion Gap 14.2 (7.0-16.0) 06/02/18 04:40 BUN 37 mg/dL (7-25) H 06/02/18 04:40 Creatinine 1.0 mg/dL (0.6-1.2) 06/02/18 04:40 Est GFR ( Amer) TNP 06/02/18 04:40 Est GFR (Non-Af Amer) TNP 06/02/18 04:40 BUN/Creatinine Ratio 37.0 06/02/18 04:40 Glucose 499 mg/dL (70-105) H* 06/02/18 04:40 POC Glucose 281 MG/DL (70 - 105) H 06/02/18 17:36 Plasma/Ser Osmolality 259 mOsmol/kg (280-301) L 05/23/18 09:55 Whole Bld Lactic Acid 2.51 mmol/L (0.60-1.99) H* 06/02/18 09:15 Calcium 7.7 mg/dL (8.6-10.3) L 06/02/18 04:40 Phosphorus 2.4 mg/dL (2.5-5.0) L 06/02/18 04:40 Magnesium 1.6 mg/dL (1.9-2.7) L 06/02/18 04:40 Total Bilirubin 0.6 mg/dL (0.3-1.0) 06/02/18 04:40 Direct Bilirubin 0.14 mg/dL (0.0-0.2) 05/24/18 07:05 AST 19 U/L (13-39) 06/02/18 04:40 ALT 10 U/L (7-52) 06/02/18 04:40 Alkaline Phosphatase 26 U/L (34-104) L 06/02/18 04:40 Ammonia 46 umol/L (16-53) 05/25/18 04:00 Total Protein 4.6 gm/dL (6.0-8.3) L 06/02/18 04:40 Albumin 2.5 gm/dL (3.7-5.3) L 06/02/18 04:40 Globulin 2.1 gm/dL 06/02/18 04:40 Albumin/Globulin Ratio 1.2 (1.0-1.8) 06/02/18 04:40 Prealbumin 9 mg/dL (9-32) 05/31/18 04:10 Triglycerides 74 mg/dL (<150) 05/31/18 04:10 Cholesterol 118 mg/dL (<200) 06/01/18 04:30 TSH 3.21 uIU/ml (0.34-5.60) 05/22/18 17:34 Urine Source CLEAN C 05/22/18 18:55 Urine Color YELLOW 05/22/18 18:55 Urine Clarity HAZY (CLEAR) 05/22/18 18:55 Urine pH 6.0 (4.6 - 8.0) 05/22/18 18:55 Ur Specific [place] >= 1.030 (1.005-1.030) 05/22/18 18:55 Urine Protein TRACE mg/dL (NEGATIVE) 05/22/18 18:55 Urine Glucose (UA) 100 mg/dL (NEGATIVE) H 05/22/18 18:55 Urine Ketones 40 mg/dL (NEGATIVE) H 05/22/18 18:55 Urine Blood MODERATE (NEGATIVE) H 05/22/18 18:55 Urine Nitrate POSITIVE (NEGATIVE) H 05/22/18 18:55 Urine Bilirubin NEGATIVE (NEGATIVE) 05/22/18 18:55 Urine Urobilinogen 0.2 E.U./dL (0.2 - 1.0) 05/22/18 18:55 Ur Leukocyte Esterase SMALL (NEGATIVE) H 05/22/18 18:55 Urine RBC 0-2 /hpf (0-5) 05/22/18 18:55 Urine WBC 6-10 /hpf (0-5) H 05/22/18 18:55 Ur Epithelial Cells OCCASIONAL /lpf (FEW) 05/22/18 18:55 Urine Bacteria 2+ /hpf (NONE SEEN) H 05/22/18 18:55 Urine Osmolality 583 mOsmol/kg 05/24/18 06:00 Ur Random Sodium 14 mmol/L 05/24/18 06:00 Vancomycin Trough 13.7 ug/mL (5-10) H 05/25/18 08:00 Valproic Acid 29.3 ug/mL (50.0-100.0) L 05/22/18 17:34 Blood Type O NEGATIVE 06/01/18 14:45 Antibody Screen NEGATIVE 06/01/18 14:45 - Physical Exam Vitals and I&O: Vital Signs Temp 99.8 F 06/02/18 22:00 Pulse 102 06/02/18 22:30 Resp 22 06/02/18 22:00 BP 114/54 06/02/18 22:30 Pulse Ox 98 06/02/18 22:28 Intake & Output 06/02/18 06/02/18 06/03/18 06:59 18:59 06:59 Intake Total 2259.917 2125.260 1415.311 Output Total 1005 1430 Balance 1268.738 5561.260 -14.689 Weight (lbs) 87.634 kg 92.986 kg Intake: Intake, IV Amount 2259.917 2125.260 175.311 Albumin 25% 25gm/100mL 25 149.167 gm In 100 ml @ 50 mls/hr IV Q2H [facility] Rx#:[id number] Amiodarone 450 mg In 259.000 42.575 Dextrose 5% 250 ml @ Titrate IV TITR [facility] Rx#: [id number] Meropenem 500 mg In 200 100 100 Sodium Chloride 0.9% 100 ml @ 100 mls/hr IV Q8H [facility] Rx#:[id number] Multivitamin Inj 10 ml 998.667 Insulin Human Regular 10 units In Dextrose 70% 500 ml In Amino Acids 8.5% 500 ml In Water, Sterile 700 ml @ 70 mls/hr IV . Q24H [facility] Rx#:[id number] Norepinephrine 4 mg In 508.000 675.386 75.311 Dextrose 5% 250 ml @ Titrate IV TITR [facility] Rx#: [id number] Phenylephrine HCl 10 mg 93.75 In Sodium Chloride 0.9% 250 ml @ 50 MCG/MIN 75 mls/hr IV TITR [facility] Rx#: [id number] Propofol 1,000 mg In 100 58.632 ml @ Per Protocol IV TITR [facility] Rx#:[id number] Sodium Chloride 0.9% 1, 1000 000 ml @ 100 mls/hr IV . Q10H [facility] Rx#:[id number] Vancomycin HCl 1 gm In 250 Sodium Chloride 0.9% 250 ml @ 165 mls/hr IV Q24H [facility] Rx#:[id number] ceFAZolin 1 gm In Sodium 50 Chloride 0.9% 50 ml @ 100 mls/hr IV Q8HR [facility] Rx#: [id number] TPN/PPN 540 Other 700 Output: Gastric Drainage 750 500 Drainage 30 80 Left Lower Abdomen 10 20 Right Lower Abdomen 20 60 Urine 225 850 Other: Weight Source Bedscale Bedscale Active Medications: Current Medications Acetaminophen (Tylenol 650mg Supp) 650 mg RC Q4H PRN PRN Reason: PAIN OR TEMP >101 Stop: 07/21/18 22:25 Albuterol/Ipratropium (Duoneb Neb) 3 ml HHN [id number] [facility] Stop: 07/22/18 18:59 Last Admin: 06/02/18 18:36 Dose: 3 ml Bisacodyl (Dulcolax 10 Mg Supp) 10 mg RC DAILY [facility] Stop: 07/22/18 12:14 Last Admin: 06/02/18 09:00 Dose: Not Given Budesonide (Pulmicort) 0.5 mg HHN BIDRT [facility] Stop: 07/22/18 18:59 Last Admin: 06/02/18 18:36 Dose: 0.5 mg Calamine/Phenol (Calmoseptine) 1 appl TP QID PRN PRN Reason: Skin Irritation Stop: 07/25/18 15:43 Last Admin: 05/26/18 17:23 Dose: 1 appl [place] Oil/[place] Balsam/Trypsin (Venelex) 1 appl TP DAILY [facility] Stop: 07/25/18 15:59 Last Admin: 06/02/18 09:00 Dose: Not Given Chlorhexidine Gluconate (Peridex) 15 ml MM 0800,2000 [facility] Stop: 07/31/18 19:59 Last Admin: 06/02/18 20:55 Dose: 15 ml Divalproex Sodium (Depakote Dr) 250 mg PO BID [facility]; Protocol Stop: 07/22/18 16:59 Last Admin: 06/02/18 19:02 Dose: Not Given Gabapentin (Neurontin) 300 mg PO TID [facility] Stop: 07/22/18 13:59 Last Admin: 06/02/18 21:10 Dose: Not Given Hydromorphone HCl (Dilaudid) 1 mg IVP Q3H PRN PRN Reason: Severe Pain Stop: 07/31/18 13:19 Multivitamins/Minerals 10 ml/Insulin Human Regular 10 units / Dextrose/ Amino Acids/Electrolytes/ Sterile Water 1,710.1 mls @ 70 mls/hr IV .Q24H [facility] Stop: 06/25/18 15:59 Last Admin: 06/02/18 16:00 Dose: 70 mls/hr Sodium Chloride (Nacl 0.9%) 1,000 mls @ 100 mls/hr IV .Q10H [facility] Stop: 07/31/18 13:29 Last Infusion: 06/01/18 19:00 Dose: Infused Amiodarone HCl 450 mg/ (Dextrose) 259 mls @ 0 mls/hr IV TITR [facility]; Protocol Stop: 07/31/18 20:14 Last Titration: 06/02/18 18:57 Dose: 0.5 mg/min, 17.26 mls/hr Norepinephrine Bitartrate 4 mg (/ Dextrose) 254 mls @ 0 mls/hr IV TITR PRN; Protocol PRN Reason: BP MAINTENANCE (PER PROTOCOL) Stop: 07/31/18 17:54 Last Admin: 06/02/18 21:12 Dose: 12 mcg/min, 45.72 mls/hr Propofol (Diprivan) 1,000 mg in 100 mls @ 0 mls/hr IV TITR [facility]; Protocol Stop: 07/31/18 18:43 Last Admin: 06/02/18 09:28 Dose: 8 mcg/kg/min, 4.193 mls/hr Phenylephrine HCl 10 mg/ (Sodium Chloride) 250 mls @ 75 mls/hr IV TITR [facility]; Protocol Stop: 07/31/18 20:44 Last Titration: 06/01/18 22:00 Dose: 0 mcg/min, 0 mls/hr Meropenem 500 mg/ Sodium (Chloride) 100 mls @ 100 mls/hr IV Q8H [facility] Stop: 07/31/18 20:59 Last Infusion: 06/02/18 22:13 Dose: Infused Vancomycin HCl 1 gm/ Sodium (Chloride) 250 mls @ 165 mls/hr IV Q24H [facility] Stop: 08/01/18 09:59 Last Infusion: 06/02/18 18:03 Dose: Infused Insulin Aspart (Novolog Insulin Sliding Scale) 0 units SUBQ Q6HR [facility]; Protocol Stop: 07/22/18 11:59 Last Admin: 06/02/18 17:41 Dose: 6 units Lactobacillus Rhamnosus (Culturelle 15b) 1 each PO DAILY [facility] Stop: 07/25/18 08:59 Last Admin: 06/02/18 09:00 Dose: Not Given Lorazepam (Ativan) 0.5 mg IVP Q6H PRN PRN Reason: AGITATION Stop: 07/30/18 15:47 Miscellaneous (Probiotic Screen) 1 ea MC PRN PRN PRN Reason: PROTOCOL Stop: 07/24/18 14:14 Miscellaneous (Ppn Per Pharmacy) 1 ea PRN PRN PRN Reason: PROTOCOL Stop: 07/25/18 16:42 Miscellaneous (Vancomycin Iv Per Pharmacy) 1 ea PRN [facility] Stop: 07/31/18 20:44 Morphine Sulfate (Morphine) 2 mg IVP Q3H PRN PRN Reason: Pain (Severe) Stop: 07/21/18 22:22 Last Admin: 05/31/18 20:57 Dose: 2 mg Nystatin (Nystop) 0 units TP BID [facility] Stop: 07/25/18 16:59 Last Admin: 06/02/18 19:01 Dose: Not Given Ondansetron HCl (Zofran) 4 mg IV Q6H PRN PRN Reason: Nausea / Vomiting Stop: 07/21/18 22:24 Last Admin: 05/25/18 11:11 Dose: 4 mg General: No acute distress HEENT: Other (ETT/VENT) Neck: Supple Cardiovascular: Regular rate Lungs: Clear to auscultation Abdomen: Soft, no Distended - Procedures Procedures: Procedures Procedure Code Date EMERGENCY DEPT VISIT 31090 02/03/00 EXCISION OF SMALL INTESTINE, PERC ENDO APPROACH [id number] 05/22/18 EXCISION OF TRANSVERSE COLON, PERC ENDO APPROACH [id number] 05/22/18 IMMOBILIZ/WOUND ATTN NEC 93.59 04 RELEASE SMALL INTESTINE, OPEN APPROACH [id number] 05/22/18 REPAIR SMALL INTESTINE, PERCUTANEOUS ENDOSCOPIC APPROACH [id number] 05/22/18 RESPIRATORY VENTILATION, LESS THAN 24 CONSECUTIVE HOURS [id number] 05/22/18 Assessment/Plan - Problem List Patient Problems: All Active Problems Bowel obstruction (Acute) K56.609 Bowel obstruction (Acute) K56.609 PERIPHERAL TREMORS WITH DIAPHORESIS (Acute) - Assessment Assessment: IMPRESSION: 1. Bowel obstruction large and small - s/p ex lap 06/01/18 with partial resections of small and large intestines, ventral hernia repair. 2. Post op respiratory failure. 3. Sepsis with hypotension. RECS: -Post op care as per surgeon. -Abx. -consider TPN. -monitor labs. -vent care as per Pulm.
[2018-06-03] MEDS: INSULIN ASPART SLIDING SCALE 100 UNITS/ML UNIT SUBQ SCH ×5 (00:11→23:31)
[2018-06-03 05:11] LABS: HEMATOCRIT 24.4 % (41.0-60); HEMOGLOBIN 8.2 gm/dL (12-16); MEAN CELL VOLUME 84.8 fl (81-100); MEAN CORPUSCULAR HEMOGLOBIN 28.6 pg (27.0-31.0); MEAN CORPUSCULAR HGB CONC 33.7 pg (28.0-36.0); MEAN PLATELET VOLUME 7.4 fl; PLATELET COUNT 189 Th/cmm (150-400); RED BLOOD COUNT 2.87 Mil/cmm (3.80-5.20); RED CELL DISTRIBUTION WIDTH 13.2 % (11.5-20.0)
[2018-06-03 05:19] LABS: ALB/GLOB RATIO 1.1 (1.0-1.8); ALBUMIN 2.2 gm/dL (3.7-5.3); ALKALINE PHOSPHATASE 40 U/L (34-104); ANION GAP 9.6 (7.0-16.0); BILIRUBIN,TOTAL 0.4 mg/dL (0.3-1.0); BUN - UREA NITROGEN 27 mg/dL (7-25); CALCIUM SERUM 7.9 mg/dL (8.6-10.3); CARBON DIOXIDE 26.5 mEq/L (21.0-31.0); CHLORIDE 107 mEq/L (98-107); CREATININE - SERUM 0.6 mg/dL (0.6-1.2); MAGNESIUM 2.1 mg/dL (1.9-2.7); PHOSPHOROUS 2.3 mg/dL (2.5-5.0); POTASSIUM SERUM 3.1 mEq/L (3.5-5.1); SGOT 13 U/L (13-39); SGPT/ALT 9 U/L (7-52); SODIUM SERUM 140 mEq/L (136-145); TOTAL PROTEIN,SERUM 4.3 gm/dL (6.0-8.3)
[2018-06-03 05:20] LABS: WHITE BLOOD COUNT 18.3 Th/cmm (4.8-10.8)
[2018-06-03 05:36] LABS: GLUCOSE 236 mg/dL (70-105)
[2018-06-03 05:42] LABS: BAND NEUTROPHILE 7 % (0-10); LYMPHOCYTE 8 % (20-50); MONOCYTE 4 % (2-10); NEUTROPHILS 81 % (40-80); PLATELET ESTIMATE ADEQUATE (NORMAL)
[2018-06-03] MEDS: Meropenem 500 MG in Sodium Chloride 0.9% 100 ML IV SCH ×3 (05:45→20:18)
[2018-06-03] MEDS: Budesonide 0.5 Mg/2 mL Ud HHN SCH ×2 (06:44→18:29)
[2018-06-03] MEDS: Albuterol/Ipratropium Neb 3 ML AERS HHN SCH ×4 (06:44→18:30)
[2018-06-03] MEDS ORDERED: Potassium Phosphate 30 MMOLE in Sodium Chloride 0.9% 250 ML IV ONE (07:07)
[2018-06-03] MEDS: Chlorhexidine Gluconate 0.12% 15mL Mouthwash MM SCH ×2 (08:46→20:19)
[2018-06-03] MEDS: Lactobacillus Rhamnosus GG 15 Billion CFU CAP.SPRINK PO SCH (08:52)
--- NOTE | 2018-06-03 15:38 | Cardiology ---
06/03/[address] Gregory. PROCEDURE: Echocardiogram. M-MODE ECHOCARDIOGRAM: Mitral valve, anterior leaflet of mitral valve shows normal excursion, EF velocity. Posterior leaflet of the mitral valve shows calcification. Left ventricular posterior wall shows increased thickness, normal excursion. Interventricular septum shows increased thickness, normal excursion. There is hypertrophy of the left ventricle, ejection fraction 68%. Left atrium enlarged at 4.1 cm. Aortic root shows normal dimension with normal excursion. CONCLUSION: Hypertrophy of the left ventricle and mitral annulus calcification, left atrial enlargement, ejection fraction 68%. 2D ECHO: Long axis view shows normal sized left ventricle with hypertrophy of the left ventricle. Mitral valve shows minimal mitral annulus calcification. Left atrium enlarged. Aortic root shows normal dimension, normal excursion of aortic leaflets. Short axis view of mitral valve normal with mitral annulus calcification. Short axis view of aortic valve normal. Apical four chamber view showed normal sized left ventricle with hypertrophy of the left ventricle. Left atrium enlarged. Right ventricular cavity, right atrium normal, no pericardial effusion. CONCLUSION: Mitral annulus calcification, hypertrophy of the left ventricle, left atrial enlargement, ejection fraction 68%. Doppler study shows mild mitral regurgitation, severe tricuspid regurgitation, right ventricular systolic pressure 62 mmHg with severe pulmonary hypertension. JOB# [id number]
[2018-06-03] MEDS: TPN 8.5%-70% CUSTOM IV SCH (16:02)
[2018-06-03] MEDS: Morphine Sulfate 2 mg/mL 1mL Syr IVP PRN ×2 (16:14→20:19)
[2018-06-03] MEDS: Venelex 60gm Tube TP SCH (17:00)
[2018-06-03] MEDS: Sodium Chloride 0.9% 1,000 ML IV SCH (19:29)
--- NOTE | 2018-06-03 21:30 | GI Progress Note ---
Subjective - Review of Systems Service Date: 06/03/18 Subjective: GI NOTE EVENTS NOTED. REMAINS ON VENT. OFF PRESSOR. Objective - Results Result Diagrams: 06/03/18 04:25 06/03/18 04:25 Recent Labs: Laboratory Last Values WBC 18.3 Th/cmm (4.8-10.8) H 06/03/18 04:25 Corrected WBC (auto) 3.0 Th/cmm (4.8-10.8) L 05/26/18 04:00 RBC 2.87 Mil/cmm (3.80-5.20) L 06/03/18 04:25 Hgb 8.2 gm/dL (12-16) L 06/03/18 04:25 Hct 24.4 % (41.0-60) L 06/03/18 04:25 MCV 84.8 fl (81-100) 06/03/18 04:25 MCH 28.6 pg (27.0-31.0) 06/03/18 04:25 MCHC Differential 33.7 pg (28.0-36.0) 06/03/18 04:25 RDW 13.2 % (11.5-20.0) 06/03/18 04:25 Plt Count 189 Th/cmm (150-400) 06/03/18 04:25 MPV 7.4 fl 06/03/18 04:25 Add Manual Diff YES 06/03/18 04:25 Neutrophils % 74.6 % (40.0-80.0) 06/01/18 04:30 Band Neutrophils % 7 % (0-10) 06/03/18 04:25 Lymphocytes % 7.9 % (20.0-50.0) L 06/01/18 04:30 Monocytes % 15.9 % (2.0-10.0) H 06/01/18 04:30 Eosinophils % 1.5 % (0.0-5.0) 06/01/18 04:30 Basophils % 0.1 % (0.0-2.0) 06/01/18 04:30 Neutrophils (Manual) 81 % (40-80) H 06/03/18 04:25 Lymphocytes 8 % (20-50) L 06/03/18 04:25 Monocytes 4 % (2-10) 06/03/18 04:25 Eosinophils 0 % (0-5) 06/01/18 04:30 Basophils 0 % (0-3) 06/01/18 04:30 Platelet Estimate ADEQUATE (NORMAL) 06/03/18 04:25 PT 10.8 SECONDS (9.5-11.5) 05/23/18 04:30 INR 1.04 (0.5-1.4) 05/23/18 04:30 PTT (Actin FS) 27.4 SECONDS (26.0-38.0) 05/23/18 04:30 Specimen Source Arterial 06/02/18 08:50 Sample Site Right Radial 06/02/18 08:50 pH 7.44 (7.35-7.45) 06/02/18 08:50 pCO2 36.0 mmHg (35.0-45.0) 06/02/18 08:50 pO2 155.0 mmHg (80.0-100.0) H 06/02/18 08:50 HCO3 25.4 mEq/L (20.0-26.0) 06/02/18 08:50 Base Excess 0.6 mEq/L (-3.0-3.0) 06/02/18 08:50 O2 Saturation 99.0 % (92.0-100.0) 06/02/18 08:50 Ricky Test Positive 06/02/18 08:50 Vent Rate 12 06/02/18 08:50 Inspired O2 50 06/02/18 08:50 Tidal Volume 600 06/02/18 08:50 PEEP 0 06/02/18 08:50 Pressure (ins/psv/peep) N/A 06/02/18 08:50 Critical Value DM 06/02/18 08:50 Sodium 140 mEq/L (136-145) 06/03/18 04:25 Potassium 3.1 mEq/L (3.5-5.1) L 06/03/18 04:25 Chloride 107 mEq/L (98-107) 06/03/18 04:25 Carbon Dioxide 26.5 mEq/L (21.0-31.0) 06/03/18 04:25 Anion Gap 9.6 (7.0-16.0) 06/03/18 04:25 BUN 27 mg/dL (7-25) H 06/03/18 04:25 Creatinine 0.6 mg/dL (0.6-1.2) 06/03/18 04:25 Est GFR ( Amer) TNP 06/03/18 04:25 Est GFR (Non-Af Amer) TNP 06/03/18 04:25 BUN/Creatinine Ratio 45.0 06/03/18 04:25 Glucose 236 mg/dL (70-105) H D 06/03/18 04:25 POC Glucose 205 MG/DL (70 - 105) H 06/03/18 18:05 Plasma/Ser Osmolality 259 mOsmol/kg (280-301) L 05/23/18 09:55 Whole Bld Lactic Acid 2.51 mmol/L (0.60-1.99) H* 06/02/18 09:15 Calcium 7.9 mg/dL (8.6-10.3) L 06/03/18 04:25 Phosphorus 2.3 mg/dL (2.5-5.0) L 06/03/18 04:25 Magnesium 2.1 mg/dL (1.9-2.7) 06/03/18 04:25 Total Bilirubin 0.4 mg/dL (0.3-1.0) 06/03/18 04:25 Direct Bilirubin 0.14 mg/dL (0.0-0.2) 05/24/18 07:05 AST 13 U/L (13-39) 06/03/18 04:25 ALT 9 U/L (7-52) 06/03/18 04:25 Alkaline Phosphatase 40 U/L (34-104) 06/03/18 04:25 Ammonia 46 umol/L (16-53) 05/25/18 04:00 Total Protein 4.3 gm/dL (6.0-8.3) L 06/03/18 04:25 Albumin 2.2 gm/dL (3.7-5.3) L 06/03/18 04:25 Globulin 2.1 gm/dL 06/03/18 04:25 Albumin/Globulin Ratio 1.1 (1.0-1.8) 06/03/18 04:25 Prealbumin 9 mg/dL (9-32) 05/31/18 04:10 Triglycerides 74 mg/dL (<150) 05/31/18 04:10 Cholesterol 118 mg/dL (<200) 06/01/18 04:30 TSH 3.21 uIU/ml (0.34-5.60) 05/22/18 17:34 Urine Source CLEAN C 05/22/18 18:55 Urine Color YELLOW 05/22/18 18:55 Urine Clarity HAZY (CLEAR) 05/22/18 18:55 Urine pH 6.0 (4.6 - 8.0) 05/22/18 18:55 Ur Specific [place] >= 1.030 (1.005-1.030) 05/22/18 18:55 Urine Protein TRACE mg/dL (NEGATIVE) 05/22/18 18:55 Urine Glucose (UA) 100 mg/dL (NEGATIVE) H 05/22/18 18:55 Urine Ketones 40 mg/dL (NEGATIVE) H 05/22/18 18:55 Urine Blood MODERATE (NEGATIVE) H 05/22/18 18:55 Urine Nitrate POSITIVE (NEGATIVE) H 05/22/18 18:55 Urine Bilirubin NEGATIVE (NEGATIVE) 05/22/18 18:55 Urine Urobilinogen 0.2 E.U./dL (0.2 - 1.0) 05/22/18 18:55 Ur Leukocyte Esterase SMALL (NEGATIVE) H 05/22/18 18:55 Urine RBC 0-2 /hpf (0-5) 05/22/18 18:55 Urine WBC 6-10 /hpf (0-5) H 05/22/18 18:55 Ur Epithelial Cells OCCASIONAL /lpf (FEW) 05/22/18 18:55 Urine Bacteria 2+ /hpf (NONE SEEN) H 05/22/18 18:55 Urine Osmolality 583 mOsmol/kg 05/24/18 06:00 Ur Random Sodium 14 mmol/L 05/24/18 06:00 Vancomycin Trough 13.7 ug/mL (5-10) H 05/25/18 08:00 Valproic Acid 29.3 ug/mL (50.0-100.0) L 05/22/18 17:34 Blood Type O NEGATIVE 06/01/18 14:45 Antibody Screen NEGATIVE 06/01/18 14:45 Crossmatch See Detail 06/01/18 14:45 - Physical Exam Vitals and I&O: Vital Signs Temp 98.6 F 06/03/18 16:00 Pulse 93 06/03/18 20:49 Resp 23 06/03/18 18:00 BP 136/68 06/03/18 18:15 Pulse Ox 100 06/03/18 20:49 Intake & Output 06/03/18 06/03/18 06/04/18 06:59 18:59 06:59 Intake Total 2822.502 2574.361 Output Total 1430 2610 Balance 1392.502 -35.639 Weight (lbs) 92.986 kg 93.44 kg Intake: Intake, IV Amount 1582.502 997.361 Amiodarone 450 mg In 241.164 Dextrose 5% 250 ml @ Titrate IV TITR [facility] Rx#: [id number] Meropenem 500 mg In 100 200 Sodium Chloride 0.9% 100 ml @ 100 mls/hr IV Q8H [facility] Rx#:[id number] Norepinephrine 4 mg In 395.986 306.197 Dextrose 5% 250 ml @ Titrate IV TITR [facility] Rx#: [id number] Propofol 1,000 mg In 100 86.516 ml @ Per Protocol IV TITR [facility] Rx#:[id number] Sodium Chloride 0.9% 1, 1000 000 ml @ 100 mls/hr IV . Q10H [facility] Rx#:[id number] Vancomycin HCl 1 gm In 250 Sodium Chloride 0.9% 250 ml @ 165 mls/hr IV Q24H [facility] Rx#:[id number] TPN/PPN 540 840 Blood Product 500 Other 700 237 Output: Gastric Drainage 500 550 Drainage 80 860 Left Lower Abdomen 20 500 Right Lower Abdomen 60 360 Urine 850 1200 Other: # Bowel Movements 0 Weight Source Bedscale Bedscale Active Medications: Current Medications Acetaminophen (Tylenol 650mg Supp) 650 mg RC Q4H PRN PRN Reason: PAIN OR TEMP >101 Stop: 07/21/18 22:25 Albuterol/Ipratropium (Duoneb Neb) 3 ml HHN [id number] [facility] Stop: 07/22/18 18:59 Last Admin: 06/03/18 18:30 Dose: 3 ml Bisacodyl (Dulcolax 10 Mg Supp) 10 mg RC DAILY [facility] Stop: 07/22/18 12:14 Last Admin: 06/03/18 08:50 Dose: Not Given Budesonide (Pulmicort) 0.5 mg HHN BIDRT [facility] Stop: 07/22/18 18:59 Last Admin: 06/03/18 18:29 Dose: 0.5 mg Calamine/Phenol (Calmoseptine) 1 appl TP QID PRN PRN Reason: Skin Irritation Stop: 07/25/18 15:43 Last Admin: 05/26/18 17:23 Dose: 1 appl [place] Oil/[place] Balsam/Trypsin (Venelex) 1 appl TP DAILY [facility] Stop: 07/25/18 15:59 Last Admin: 06/03/18 17:00 Dose: 1 appl Chlorhexidine Gluconate (Peridex) 15 ml MM 0800,2000 [facility] Stop: 07/31/18 19:59 Last Admin: 06/03/18 20:19 Dose: 15 ml Divalproex Sodium (Depakote Dr) 250 mg PO BID [facility]; Protocol Stop: 07/22/18 16:59 Last Admin: 06/03/18 16:42 Dose: Not Given Gabapentin (Neurontin) 300 mg PO TID [facility] Stop: 07/22/18 13:59 Last Admin: 06/03/18 16:43 Dose: Not Given Hydromorphone HCl (Dilaudid) 1 mg IVP Q3H PRN PRN Reason: Severe Pain Stop: 07/31/18 13:19 Sodium Chloride (Nacl 0.9%) 1,000 mls @ 100 mls/hr IV .Q10H [facility] Stop: 07/31/18 13:29 Last Admin: 06/03/18 19:29 Dose: 100 mls/hr Amiodarone HCl 450 mg/ (Dextrose) 259 mls @ 0 mls/hr IV TITR [facility]II[facility]; Protocol Stop: 07/31/18 20:14 Last Titration: 06/03/18 10:04 Dose: 0 mg/min, 0 mls/hr Norepinephrine Bitartrate 4 mg (/ Dextrose) 254 mls @ 0 mls/hr IV TITR PRN; Protocol PRN Reason: BP MAINTENANCE (PER PROTOCOL) Stop: 07/31/18 17:54 Last Titration: 06/03/18 18:20 Dose: 4 mcg/min, 15.24 mls/hr Propofol (Diprivan) 1,000 mg in 100 mls @ 0 mls/hr IV TITR [facility]IIA; Protocol Stop: 07/31/18 18:43 Last Admin: 06/03/18 06:06 Dose: 8 mcg/kg/min, 4.193 mls/hr Phenylephrine HCl 10 mg/ (Sodium Chloride) 250 mls @ 75 mls/hr IV TITR [facility]; Protocol Stop: 07/31/18 20:44 Last Titration: 06/01/18 22:00 Dose: 0 mcg/min, 0 mls/hr Meropenem 500 mg/ Sodium (Chloride) 100 mls @ 100 mls/hr IV Q8H [facility] Stop: 07/31/18 20:59 Last Admin: 06/03/18 20:18 Dose: 100 mls/hr Vancomycin HCl 1 gm/ Sodium (Chloride) 250 mls @ 165 mls/hr IV Q24H [facility] Stop: 08/01/18 09:59 Last Infusion: 06/03/18 18:20 Dose: Infused Multivitamins/Minerals 10 ml/Insulin Human Regular 35 units / Dextrose/ Amino Acids/Electrolytes/ Sterile Water 1,710.35 mls @ 70 mls/hr IV .Q24H [facility] Stop: 06/25/18 15:59 Last Admin: 06/03/18 16:02 Dose: 70 mls/hr Insulin Aspart (Novolog Insulin Sliding Scale) 0 units SUBQ Q6HR [facility]; Protocol Stop: 07/22/18 11:59 Last Admin: 06/03/18 18:12 Dose: 4 units Lactobacillus Rhamnosus (Culturelle 15b) 1 each PO DAILY [facility] Stop: 07/25/18 08:59 Last Admin: 06/03/18 08:52 Dose: Not Given Lorazepam (Ativan) 0.5 mg IVP Q6H PRN PRN Reason: AGITATION Stop: 07/30/18 15:47 Miscellaneous (Probiotic Screen) 1 ea MC PRN PRN PRN Reason: PROTOCOL Stop: 07/24/18 14:14 Miscellaneous (Vancomycin Iv Per Pharmacy) 1 ea MC PRN [facility] Stop: 07/31/18 20:44 Miscellaneous (Tpn Per Pharmacy) 1 ea MC PRN PRN PRN Reason: TPN PER RX Stop: 08/02/18 07:51 Morphine Sulfate (Morphine) 2 mg IVP Q3H PRN PRN Reason: Pain (Severe) Stop: 07/21/18 22:22 Last Admin: 06/03/18 20:19 Dose: 2 mg Ondansetron HCl (Zofran) 4 mg IV Q6H PRN PRN Reason: Nausea / Vomiting Stop: 07/21/18 22:24 Last Admin: 12/26/18 11:11 Dose: 4 mg Pantoprazole Sodium (Protonix) 40 mg IVP QDAC [facility] Stop: 08/02/18 08:59 Last Admin: 06/03/18 09:00 Dose: 40 mg General: No acute distress HEENT: Other (ETT/VENT) Neck: Supple Cardiovascular: Regular rate Lungs: Clear to auscultation Abdomen: Soft, no Distended - Procedures Procedures: Procedures Procedure Code Date EMERGENCY DEPT VISIT 12727 02/03/00 EXCISION OF SMALL INTESTINE, PERC ENDO APPROACH [id number] 05/22/18 EXCISION OF TRANSVERSE COLON, PERC ENDO APPROACH [id number] 05/22/18 IMMOBILIZ/WOUND ATTN NEC 93.59 08/01/01 RELEASE SMALL INTESTINE, OPEN APPROACH [id number] 05/22/18 REPAIR SMALL INTESTINE, PERCUTANEOUS ENDOSCOPIC APPROACH [id number] 05/22/18 RESPIRATORY VENTILATION, 24-96 CONSECUTIVE HOURS [id number] 05/22/18 Assessment/Plan - Problem List Patient Problems: All Active Problems Bowel obstruction (Acute) K56.609 Bowel obstruction (Acute) K56.609 PERIPHERAL TREMORS WITH DIAPHORESIS (Acute) - Assessment Assessment: IMPRESSION: 1. Bowel obstruction large and small - s/p ex lap 06/01/18 with partial resections of small and large intestines, ventral hernia repair. 2. Post op respiratory failure. 3. Sepsis with hypotension, better. RECS: -Post op care as per surgeon. -Abx. -continue TPN. -monitor labs. -vent care as per Pulm.
[2018-06-04] MEDS: Morphine Sulfate 2 mg/mL 1mL Syr IVP PRN ×4 (04:17→21:15)
[2018-06-04] MEDS: Meropenem 500 MG in Sodium Chloride 0.9% 100 ML IV SCH ×3 (04:17→21:00)
[2018-06-04 05:06] LABS: ALB/GLOB RATIO 0.8 (1.0-1.8); ALBUMIN 1.9 gm/dL (3.7-5.3); ALKALINE PHOSPHATASE 48 U/L (34-104); BILIRUBIN,TOTAL 0.5 mg/dL (0.3-1.0); BUN - UREA NITROGEN 22 mg/dL (7-25); CALCIUM SERUM 7.6 mg/dL (8.6-10.3); CARBON DIOXIDE 25.6 mEq/L (21.0-31.0); CHLORIDE 107 mEq/L (98-107); CREATININE - SERUM 0.4 mg/dL (0.6-1.2); MAGNESIUM 1.8 mg/dL (1.9-2.7); PHOSPHOROUS 2.6 mg/dL (2.5-5.0); POTASSIUM SERUM 3.6 mEq/L (3.5-5.1); SGOT 16 U/L (13-39); SGPT/ALT 11 U/L (7-52); SODIUM SERUM 138 mEq/L (136-145); TOTAL PROTEIN,SERUM 4.2 gm/dL (6.0-8.3)
[2018-06-04] MEDS: INSULIN ASPART SLIDING SCALE 100 UNITS/ML UNIT SUBQ SCH ×3 (05:30→18:01)
[2018-06-04 06:20] LABS: GLUCOSE 134 mg/dL (70-105)
[2018-06-04] MEDS: Sodium Chloride 0.9% 1,000 ML IV SCH ×2 (07:23→17:23)
[2018-06-04] MEDS: Albuterol/Ipratropium Neb 3 ML AERS HHN SCH ×4 (07:25→19:34)
[2018-06-04] MEDS: Budesonide 0.5 Mg/2 mL Ud HHN SCH ×2 (07:44→19:34)
--- NOTE | 2018-06-04 07:59 | GI Progress Note ---
Subjective - Review of Systems Service Date: 06/04/18 Subjective: GI NOTE EVENTS NOTED. REMAINS ON VENT. Objective - Results Result Diagrams: 06/03/18 04:25 06/04/18 04:04 Recent Labs: Laboratory Last Values WBC 18.3 Th/cmm (4.8-10.8) H 06/03/18 04:25 Corrected WBC (auto) 3.0 Th/cmm (4.8-10.8) L 05/26/18 04:00 RBC 2.87 Mil/cmm (3.80-5.20) L 06/03/18 04:25 Hgb 8.2 gm/dL (12-16) L 06/03/18 04:25 Hct 24.4 % (41.0-60) L 06/03/18 04:25 MCV 84.8 fl (81-100) 06/03/18 04:25 MCH 28.6 pg (27.0-31.0) 06/03/18 04:25 MCHC Differential 33.7 pg (28.0-36.0) 06/03/18 04:25 RDW 13.2 % (11.5-20.0) 06/03/18 04:25 Plt Count 189 Th/cmm (150-400) 06/03/18 04:25 MPV 7.4 fl 06/03/18 04:25 Add Manual Diff YES 06/03/18 04:25 Neutrophils % 74.6 % (40.0-80.0) 06/01/18 04:30 Band Neutrophils % 7 % (0-10) 06/03/18 04:25 Lymphocytes % 7.9 % (20.0-50.0) L 06/01/18 04:30 Monocytes % 15.9 % (2.0-10.0) H 06/01/18 04:30 Eosinophils % 1.5 % (0.0-5.0) 06/01/18 04:30 Basophils % 0.1 % (0.0-2.0) 06/01/18 04:30 Neutrophils (Manual) 81 % (40-80) H 06/03/18 04:25 Lymphocytes 8 % (20-50) L 06/03/18 04:25 Monocytes 4 % (2-10) 06/03/18 04:25 Eosinophils 0 % (0-5) 06/01/18 04:30 Basophils 0 % (0-3) 06/01/18 04:30 Platelet Estimate ADEQUATE (NORMAL) 06/03/18 04:25 PT 10.8 SECONDS (9.5-11.5) 05/23/18 04:30 INR 1.04 (0.5-1.4) 05/23/18 04:30 PTT (Actin FS) 27.4 SECONDS (26.0-38.0) 05/23/18 04:30 Specimen Source Arterial 06/02/18 08:50 Sample Site Right Radial 06/02/18 08:50 pH 7.44 (7.35-7.45) 06/02/18 08:50 pCO2 36.0 mmHg (35.0-45.0) 06/02/18 08:50 pO2 155.0 mmHg (80.0-100.0) H 06/02/18 08:50 HCO3 25.4 mEq/L (20.0-26.0) 06/02/18 08:50 Base Excess 0.6 mEq/L (-3.0-3.0) 06/02/18 08:50 O2 Saturation 99.0 % (92.0-100.0) 06/02/18 08:50 Ricky Test Positive 06/02/18 08:50 Vent Rate 12 06/02/18 08:50 Inspired O2 50 06/02/18 08:50 Tidal Volume 600 06/02/18 08:50 PEEP 0 06/02/18 08:50 Pressure (ins/psv/peep) N/A 06/02/18 08:50 Critical Value DM 06/02/18 08:50 Sodium 138 mEq/L (136-145) 06/04/18 04:04 Potassium 3.6 mEq/L (3.5-5.1) 06/04/18 04:04 Chloride 107 mEq/L (98-107) 06/04/18 04:04 Carbon Dioxide 25.6 mEq/L (21.0-31.0) 06/04/18 04:04 Anion Gap 9.0 (7.0-16.0) 06/04/18 04:04 BUN 22 mg/dL (7-25) 06/04/18 04:04 Creatinine 0.4 mg/dL (0.6-1.2) L 06/04/18 04:04 Est GFR ( Amer) TNP 06/04/18 04:04 Est GFR (Non-Af Amer) TNP 06/04/18 04:04 BUN/Creatinine Ratio 55.0 06/04/18 04:04 Glucose 134 mg/dL (70-105) H D 06/04/18 04:04 POC Glucose 124 MG/DL (70 - 105) H 06/04/18 05:25 Plasma/Ser Osmolality 259 mOsmol/kg (280-301) L 05/23/18 09:55 Whole Bld Lactic Acid 2.51 mmol/L (0.60-1.99) H* 06/02/18 09:15 Calcium 7.6 mg/dL (8.6-10.3) L 06/04/18 04:04 Phosphorus 2.6 mg/dL (2.5-5.0) 06/04/18 04:04 Magnesium 1.8 mg/dL (1.9-2.7) L 06/04/18 04:04 Total Bilirubin 0.5 mg/dL (0.3-1.0) 06/04/18 04:04 Direct Bilirubin 0.14 mg/dL (0.0-0.2) 05/24/18 07:05 AST 16 U/L (13-39) 06/04/18 04:04 ALT 11 U/L (7-52) 06/04/18 04:04 Alkaline Phosphatase 48 U/L (34-104) 06/04/18 04:04 Ammonia 46 umol/L (16-53) 05/25/18 04:00 Total Protein 4.2 gm/dL (6.0-8.3) L 06/04/18 04:04 Albumin 1.9 gm/dL (3.7-5.3) L 06/04/18 04:04 Globulin 2.3 gm/dL 06/04/18 04:04 Albumin/Globulin Ratio 0.8 (1.0-1.8) L 06/04/18 04:04 Prealbumin 9 mg/dL (9-32) 05/31/18 04:10 Triglycerides 74 mg/dL (<150) 05/31/18 04:10 Cholesterol 118 mg/dL (<200) 06/01/18 04:30 TSH 3.21 uIU/ml (0.34-5.60) 05/22/18 17:34 Urine Source CLEAN C 05/22/18 18:55 Urine Color YELLOW 05/22/18 18:55 Urine Clarity HAZY (CLEAR) 05/22/18 18:55 Urine pH 6.0 (4.6 - 8.0) 05/22/18 18:55 Ur Specific [place] >= 1.030 (1.005-1.030) 05/22/18 18:55 Urine Protein TRACE mg/dL (NEGATIVE) 05/22/18 18:55 Urine Glucose (UA) 100 mg/dL (NEGATIVE) H 05/22/18 18:55 Urine Ketones 40 mg/dL (NEGATIVE) H 05/22/18 18:55 Urine Blood MODERATE (NEGATIVE) H 05/22/18 18:55 Urine Nitrate POSITIVE (NEGATIVE) H 05/22/18 18:55 Urine Bilirubin NEGATIVE (NEGATIVE) 05/22/18 18:55 Urine Urobilinogen 0.2 E.U./dL (0.2 - 1.0) 05/22/18 18:55 Ur Leukocyte Esterase SMALL (NEGATIVE) H 05/22/18 18:55 Urine RBC 0-2 /hpf (0-5) 05/22/18 18:55 Urine WBC 6-10 /hpf (0-5) H 05/22/18 18:55 Ur Epithelial Cells OCCASIONAL /lpf (FEW) 05/22/18 18:55 Urine Bacteria 2+ /hpf (NONE SEEN) H 05/22/18 18:55 Urine Osmolality 583 mOsmol/kg 05/24/18 06:00 Ur Random Sodium 14 mmol/L 05/24/18 06:00 Vancomycin Trough 13.7 ug/mL (5-10) H 05/25/18 08:00 Valproic Acid 29.3 ug/mL (50.0-100.0) L 05/22/18 17:34 Blood Type O NEGATIVE 06/01/18 14:45 Antibody Screen NEGATIVE 06/01/18 14:45 Crossmatch See Detail 06/01/18 14:45 - Physical Exam Vitals and I&O: Vital Signs Temp 99 F 06/04/18 04:00 Pulse 79 06/04/18 07:44 Resp 18 06/04/18 06:00 BP 121/55 06/04/18 06:45 Pulse Ox 100 06/04/18 07:44 Intake & Output 06/03/18 06/04/18 06/04/18 18:59 06:59 18:59 Intake Total 2574.361 1395.673 Output Total 2610 1475 Balance -35.639 -79.327 Weight (lbs) 93.44 kg 94.393 kg Intake: Intake, IV Amount 114.513 9351.673 Amiodarone 450 mg In 241.164 Dextrose 5% 250 ml @ Titrate IV TITR [facility] Rx#: [id number] Meropenem 500 mg In 200 200 Sodium Chloride 0.9% 100 ml @ 100 mls/hr IV Q8H [facility] Rx#:[id number] Norepinephrine 4 mg In 306.197 120.269 Dextrose 5% 250 ml @ Titrate IV TITR PRN Rx#: [id number] Propofol 1,000 mg In 100 75.404 ml @ Per Protocol IV TITR [facility] Rx#:[id number] Sodium Chloride 0.9% 1, 1000 000 ml @ 100 mls/hr IV . Q10H [facility] Rx#:[id number] Vancomycin HCl 1 gm In 250 Sodium Chloride 0.9% 250 ml @ 165 mls/hr IV Q24H [facility] Rx#:[id number] TPN/PPN 840 Blood Product 500 Other 237 Output: Gastric Drainage 550 200 Drainage 860 975 Left Lower Abdomen 500 545 Right Lower Abdomen 360 430 Urine 1200 300 Other: # Bowel Movements 0 0 Weight Source Bedscale Bedscale Active Medications: Current Medications Acetaminophen (Tylenol 650mg Supp) 650 mg RC Q4H PRN PRN Reason: PAIN OR TEMP >101 Stop: 07/21/18 22:25 Albuterol/Ipratropium (Duoneb Neb) 3 ml HHN [id number] [facility] Stop: 07/22/18 18:59 Last Admin: 06/04/18 07:25 Dose: 3 ml Bisacodyl (Dulcolax 10 Mg Supp) 10 mg RC DAILY [facility] Stop: 07/22/18 12:14 Last Admin: 06/03/18 08:50 Dose: Not Given Budesonide (Pulmicort) 0.5 mg HHN BIDRT [facility] Stop: 07/22/18 18:59 Last Admin: 06/04/18 07:44 Dose: 0.5 mg Calamine/Phenol (Calmoseptine) 1 appl TP QID PRN PRN Reason: Skin Irritation Stop: 07/25/18 15:43 Last Admin: 05/26/18 17:23 Dose: 1 appl O'Brien Oil/Tuvaluan Balsam/Trypsin (Venelex) 1 appl TP DAILY [facility] Stop: 07/25/18 15:59 Last Admin: 06/03/18 17:00 Dose: 1 appl Chlorhexidine Gluconate (Peridex) 15 ml MM 0800,2000 [facility] Stop: 07/31/18 19:59 Last Admin: 06/03/18 20:19 Dose: 15 ml Divalproex Sodium (Depakote Dr) 250 mg PO BID [facility]; Protocol Stop: 07/22/18 16:59 Last Admin: 06/03/18 16:42 Dose: Not Given Gabapentin (Neurontin) 300 mg PO TID [facility] Stop: 07/22/18 13:59 Last Admin: 06/03/18 21:00 Dose: Not Given Hydromorphone HCl (Dilaudid) 1 mg IVP Q3H PRN PRN Reason: Severe Pain Stop: 07/31/18 13:19 Sodium Chloride (Nacl 0.9%) 1,000 mls @ 100 mls/hr IV .Q10H [facility] Stop: 07/31/18 13:29 Last Admin: 06/04/18 07:23 Dose: 100 mls/hr Amiodarone HCl 450 mg/ (Dextrose) 259 mls @ 0 mls/hr IV TITR [facility]; Protocol Stop: 07/31/18 20:14 Last Titration: 06/03/18 10:04 Dose: 0 mg/min, 0 mls/hr Norepinephrine Bitartrate 4 mg (/ Dextrose) 254 mls @ 0 mls/hr IV TITR PRN; Protocol PRN Reason: BP MAINTENANCE (PER PROTOCOL) Stop: 07/31/18 17:54 Last Admin: 06/04/18 03:30 Dose: 3 mcg/min, 11.43 mls/hr Propofol (Diprivan) 1,000 mg in 100 mls @ 0 mls/hr IV TITR [facility]; Protocol Stop: 07/31/18 18:43 Last Admin: 06/04/18 00:05 Dose: 8 mcg/kg/min, 4.193 mls/hr Phenylephrine HCl 10 mg/ (Sodium Chloride) 250 mls @ 75 mls/hr IV TITR [facility]; Protocol Stop: 07/31/18 20:44 Last Titration: 06/01/18 22:00 Dose: 0 mcg/min, 0 mls/hr Meropenem 500 mg/ Sodium (Chloride) 100 mls @ 100 mls/hr IV Q8H [facility] Stop: 07/31/18 20:59 Last Infusion: 06/04/18 05:20 Dose: Infused Vancomycin HCl 1 gm/ Sodium (Chloride) 250 mls @ 165 mls/hr IV Q24H [facility] Stop: 08/01/18 09:59 Last Infusion: 06/03/18 18:20 Dose: Infused Multivitamins/Minerals 10 ml/Insulin Human Regular 35 units / Dextrose/ Amino Acids/Electrolytes/ Sterile Water 1,710.35 mls @ 70 mls/hr IV .Q24H [facility] Stop: 06/25/18 15:59 Last Admin: 06/03/18 16:02 Dose: 70 mls/hr Insulin Aspart (Novolog Insulin Sliding Scale) 0 units SUBQ Q6HR [facility]; Protocol Stop: 07/22/18 11:59 Last Admin: 06/04/18 05:30 Dose: Not Given Lactobacillus Rhamnosus (Culturelle 15b) 1 each PO DAILY [facility] Stop: 07/25/18 08:59 Last Admin: 06/03/18 08:52 Dose: Not Given Lorazepam (Ativan) 0.5 mg IVP Q6H PRN PRN Reason: AGITATION Stop: 07/30/18 15:47 Miscellaneous (Probiotic Screen) 1 ea MC PRN PRN PRN Reason: PROTOCOL Stop: 07/24/18 14:14 Miscellaneous (Vancomycin Iv Per Pharmacy) 1 ea MC PRN [facility] Stop: 07/31/18 20:44 Miscellaneous (Tpn Per Pharmacy) 1 ea MC PRN PRN PRN Reason: TPN PER RX Stop: 08/02/18 07:51 Morphine Sulfate (Morphine) 2 mg IVP Q3H PRN PRN Reason: Pain (Severe) Stop: 07/21/18 22:22 Last Admin: 06/04/18 04:17 Dose: 2 mg Ondansetron HCl (Zofran) 4 mg IV Q6H PRN PRN Reason: Nausea / Vomiting Stop: 07/21/18 22:24 Last Admin: 05/25/18 11:11 Dose: 4 mg Pantoprazole Sodium (Protonix) 40 mg IVP QDAC [facility] Stop: 08/02/18 08:59 Last Admin: 06/04/18 07:23 Dose: 40 mg General: No acute distress HEENT: Other (ETT/VENT) Neck: Supple Cardiovascular: Regular rate Lungs: Clear to auscultation Abdomen: Soft, Drain, no Distended - Procedures Procedures: Procedures Procedure Code Date EMERGENCY DEPT VISIT 85790 02/03/00 EXCISION OF SMALL INTESTINE, PERC ENDO APPROACH [id number] 05/22/18 EXCISION OF TRANSVERSE COLON, PERC ENDO APPROACH [id number] 05/22/18 IMMOBILIZ/WOUND ATTN NEC 93.59 08/01/01 RELEASE SMALL INTESTINE, OPEN APPROACH [id number] 05/22/18 REPAIR SMALL INTESTINE, PERCUTANEOUS ENDOSCOPIC APPROACH [id number] 05/22/18 RESPIRATORY VENTILATION, 24-96 CONSECUTIVE HOURS [id number] 05/22/18 Assessment/Plan - Problem List Patient Problems: All Active Problems Bowel obstruction (Acute) K56.609 Bowel obstruction (Acute) K56.609 PERIPHERAL TREMORS WITH DIAPHORESIS (Acute) - Assessment Assessment: IMPRESSION: 1. Bowel obstruction large and small - s/p ex lap 06/01/18 with partial resections of small and large intestines, ventral hernia repair. 2. Post op respiratory failure. 3. Sepsis with hypotension, better. RECS: -Post op care as per surgeon. -Abx. -continue TPN. -monitor labs. -vent care as per Pulm. -NGT decompression. Pending transfer to [place].
[2018-06-04] MEDS: Chlorhexidine Gluconate 0.12% 15mL Mouthwash MM SCH ×2 (08:00→21:02)
[2018-06-04 09:38] LABS: EOSINOPHILE ABSOLUTE 0.2 Th/cmm (0.1-0.4); HEMATOCRIT 30.5 % (41.0-60); HEMOGLOBIN 10.4 gm/dL (12-16); LYMPHOCYTE ABSOLUTE 0.7 Th/cmm (1.5-3.0); MEAN CELL VOLUME 85.4 fl (81-100); MEAN CORPUSCULAR HEMOGLOBIN 29.2 pg (27.0-31.0); MEAN CORPUSCULAR HGB CONC 34.1 pg (28.0-36.0); MEAN PLATELET VOLUME 8.1 fl; MONOCYTE ABSOLUTE 0.3 Th/cmm (0.3-1.0); PLATELET COUNT 135 Th/cmm (150-400); RED BLOOD COUNT 3.57 Mil/cmm (3.80-5.20); RED CELL DISTRIBUTION WIDTH 13.2 % (11.5-20.0)
[2018-06-04 09:40] LABS: pH 7.49 (7.35-7.45)
[2018-06-04 09:41] LABS: ALLEN TEST Positive
[2018-06-04] MEDS: Lactobacillus Rhamnosus GG 15 Billion CFU CAP.SPRINK PO SCH (09:46)
--- NOTE | 2018-06-04 09:52 | Diagnostic Imaging Report ---
CHEST X-RAY: AP view INDICATION: Shortness of breath COMPARISON: Chest x-ray 06/02/2018 FINDINGS: ET tube is seen with tip 3 cm above the lam. An NG tube is in the stomach. Right PICC line is noted with tip in the cavoatrial junction. Low lung lungs are seen with congestive changes and small left effusion. Mild cardiomegaly is noted. IMPRESSION: Low lung volume with congestive changes small left effusion. Pneumonia of the lung bases cannot be excluded.
[2018-06-04 09:56] LABS: WHITE BLOOD COUNT 15.2 Th/cmm (4.8-10.8)
[2018-06-04 10:00] LABS: LYMPHOCYTE 6 % (20-50); MONOCYTE 5 % (2-10); NEUTROPHILS 89 % (40-80); PLATELET ESTIMATE ADEQUATE (NORMAL)
[2018-06-04] MEDS: Venelex 60gm Tube TP SCH (10:00)
--- NOTE | 2018-06-04 11:14 | General Progress Note ---
Subjective - Review of Systems Service Date: 06/04/18 Subjective: late entry: Patient seen and examined seems more awake low dose vasopressor vent weaning in progress Objective - Results Result Diagrams: 06/04/18 09:00 06/04/18 04:04 Recent Labs: Laboratory Last Values WBC 15.2 Th/cmm (4.8-10.8) H 06/04/18 09:00 Corrected WBC (auto) 3.0 Th/cmm (4.8-10.8) L 05/26/18 04:00 RBC 3.57 Mil/cmm (3.80-5.20) L 06/04/18 09:00 Hgb 10.4 gm/dL (12-16) L 06/04/18 09:00 Hct 30.5 % (41.0-60) L 06/04/18 09:00 MCV 85.4 fl (81-100) 06/04/18 09:00 MCH 29.2 pg (27.0-31.0) 06/04/18 09:00 MCHC Differential 34.1 pg (28.0-36.0) 06/04/18 09:00 RDW 13.2 % (11.5-20.0) 06/04/18 09:00 Plt Count 135 Th/cmm (150-400) L 06/04/18 09:00 MPV 8.1 fl 06/04/18 09:00 Add Manual Diff YES 06/04/18 09:00 Neutrophils % 74.6 % (40.0-80.0) 06/01/18 04:30 Band Neutrophils % 7 % (0-10) 06/03/18 04:25 Lymphocytes % 7.9 % (20.0-50.0) L 06/01/18 04:30 Monocytes % 15.9 % (2.0-10.0) H 06/01/18 04:30 Eosinophils % 1.5 % (0.0-5.0) 06/01/18 04:30 Basophils % 0.1 % (0.0-2.0) 06/01/18 04:30 Neutrophils (Manual) 89 % (40-80) H 06/04/18 09:00 Lymphocytes 6 % (20-50) L 06/04/18 09:00 Monocytes 5 % (2-10) 06/04/18 09:00 Eosinophils 0 % (0-5) 06/01/18 04:30 Basophils 0 % (0-3) 06/01/18 04:30 Platelet Estimate ADEQUATE (NORMAL) 06/04/18 09:00 PT 10.8 SECONDS (9.5-11.5) 05/23/18 04:30 INR 1.04 (0.5-1.4) 05/23/18 04:30 PTT (Actin FS) 27.4 SECONDS (26.0-38.0) 05/23/18 04:30 Specimen Source Arterial 06/04/18 08:51 Sample Site Right Radial 06/04/18 08:51 pH 7.49 (7.35-7.45) H 06/04/18 08:51 pCO2 37.0 mmHg (35.0-45.0) 06/04/18 08:51 pO2 88.0 mmHg (80.0-100.0) 06/04/18 08:51 HCO3 28.6 mEq/L (20.0-26.0) H 06/04/18 08:51 Base Excess 4.7 mEq/L (-3.0-3.0) H 06/04/18 08:51 O2 Saturation 97.0 % (92.0-100.0) 06/04/18 08:51 Ricky Test Positive 06/04/18 08:51 Vent Rate 6 06/04/18 08:51 Inspired O2 30 06/04/18 08:51 Tidal Volume 600 06/04/18 08:51 PEEP 0 06/04/18 08:51 Pressure (ins/psv/peep) 10 06/04/18 08:51 Critical Value DM 06/04/18 08:51 Sodium 138 mEq/L (136-145) 06/04/18 04:04 Potassium 3.6 mEq/L (3.5-5.1) 06/04/18 04:04 Chloride 107 mEq/L (98-107) 06/04/18 04:04 Carbon Dioxide 25.6 mEq/L (21.0-31.0) 06/04/18 04:04 Anion Gap 9.0 (7.0-16.0) 06/04/18 04:04 BUN 22 mg/dL (7-25) 06/04/18 04:04 Creatinine 0.4 mg/dL (0.6-1.2) L 06/04/18 04:04 Est GFR ( Amer) TNP 06/04/18 04:04 Est GFR (Non-Af Amer) TNP 06/04/18 04:04 BUN/Creatinine Ratio 55.0 06/04/18 04:04 Glucose 134 mg/dL (70-105) H D 06/04/18 04:04 POC Glucose 124 MG/DL (70 - 105) H 06/04/18 05:25 Plasma/Ser Osmolality 259 mOsmol/kg (280-301) L 05/23/18 09:55 Whole Bld Lactic Acid 2.51 mmol/L (0.60-1.99) H* 06/02/18 09:15 Calcium 7.6 mg/dL (8.6-10.3) L 06/04/18 04:04 Phosphorus 2.6 mg/dL (2.5-5.0) 06/04/18 04:04 Magnesium 1.8 mg/dL (1.9-2.7) L 06/04/18 04:04 Total Bilirubin 0.5 mg/dL (0.3-1.0) 06/04/18 04:04 Direct Bilirubin 0.14 mg/dL (0.0-0.2) 05/24/18 07:05 AST 16 U/L (13-39) 06/04/18 04:04 ALT 11 U/L (7-52) 06/04/18 04:04 Alkaline Phosphatase 48 U/L (34-104) 06/04/18 04:04 Ammonia 46 umol/L (16-53) 05/25/18 04:00 Total Protein 4.2 gm/dL (6.0-8.3) L 06/04/18 04:04 Albumin 1.9 gm/dL (3.7-5.3) L 06/04/18 04:04 Globulin 2.3 gm/dL 06/04/18 04:04 Albumin/Globulin Ratio 0.8 (1.0-1.8) L 06/04/18 04:04 Prealbumin 9 mg/dL (9-32) 05/31/18 04:10 Triglycerides 74 mg/dL (<150) 05/31/18 04:10 Cholesterol 118 mg/dL (<200) 06/01/18 04:30 TSH 3.21 uIU/ml (0.34-5.60) 05/22/18 17:34 Urine Source CLEAN C 05/22/18 18:55 Urine Color YELLOW 05/22/18 18:55 Urine Clarity HAZY (CLEAR) 05/22/18 18:55 Urine pH 6.0 (4.6 - 8.0) 05/22/18 18:55 Ur Specific [place] >= 1.030 (1.005-1.030) 05/22/18 18:55 Urine Protein TRACE mg/dL (NEGATIVE) 05/22/18 18:55 Urine Glucose (UA) 100 mg/dL (NEGATIVE) H 05/22/18 18:55 Urine Ketones 40 mg/dL (NEGATIVE) H 05/22/18 18:55 Urine Blood MODERATE (NEGATIVE) H 05/22/18 18:55 Urine Nitrate POSITIVE (NEGATIVE) H 05/22/18 18:55 Urine Bilirubin NEGATIVE (NEGATIVE) 05/22/18 18:55 Urine Urobilinogen 0.2 E.U./dL (0.2 - 1.0) 05/22/18 18:55 Ur Leukocyte Esterase SMALL (NEGATIVE) H 05/22/18 18:55 Urine RBC 0-2 /hpf (0-5) 05/22/18 18:55 Urine WBC 6-10 /hpf (0-5) H 05/22/18 18:55 Ur Epithelial Cells OCCASIONAL /lpf (FEW) 05/22/18 18:55 Urine Bacteria 2+ /hpf (NONE SEEN) H 05/22/18 18:55 Urine Osmolality 583 mOsmol/kg 05/24/18 06:00 Ur Random Sodium 14 mmol/L 05/24/18 06:00 Vancomycin Trough 13.7 ug/mL (5-10) H 05/25/18 08:00 Valproic Acid 29.3 ug/mL (50.0-100.0) L 05/22/18 17:34 Blood Type O NEGATIVE 06/01/18 14:45 Antibody Screen NEGATIVE 06/01/18 14:45 Crossmatch See Detail 06/01/18 14:45 - Physical Exam Vitals and I&O: Vital Signs Temp 97.7 F 06/04/18 08:00 Pulse 89 06/04/18 09:33 Resp 20 01/05/19 09:00 BP 103/51 06/04/18 09:30 Pulse Ox 100 06/04/18 09:33 Intake & Output 06/03/18 06/04/18 06/04/18 18:59 06:59 18:59 Intake Total 2574.361 1395.673 39.973 Output Total 2610 1475 Balance -35.639 -79.327 39.973 Weight (lbs) 93.44 kg 94.393 kg Intake: Intake, IV Amount 626.331 7058.673 39.973 Amiodarone 450 mg In 241.164 Dextrose 5% 250 ml @ Titrate IV TITR [facility] Rx#: [id number] Meropenem 500 mg In 200 200 Sodium Chloride 0.9% 100 ml @ 100 mls/hr IV Q8H [facility] Rx#:[id number] Norepinephrine 4 mg In 306.197 120.269 Dextrose 5% 250 ml @ Titrate IV TITR PRN Rx#: [id number] Propofol 1,000 mg In 100 75.404 39.973 ml @ Per Protocol IV TITR [facility] Rx#:[id number] Sodium Chloride 0.9% 1, 1000 000 ml @ 100 mls/hr IV . Q10H [facility] Rx#:[id number] Vancomycin HCl 1 gm In 250 Sodium Chloride 0.9% 250 ml @ 165 mls/hr IV Q24H [facility] Rx#:[id number] TPN/PPN 840 Blood Product 500 Other 237 Output: Gastric Drainage 550 200 Drainage 860 975 Left Lower Abdomen 500 545 Right Lower Abdomen 360 430 Urine 1200 300 Other: # Bowel Movements 0 0 Weight Source Bedscale Bedscale Active Medications: Current Medications Acetaminophen (Tylenol 650mg Supp) 650 mg RC Q4H PRN PRN Reason: PAIN OR TEMP >101 Stop: 07/21/18 22:25 Albuterol/Ipratropium (Duoneb Neb) 3 ml HHN [id number] [facility] Stop: 07/22/18 18:59 Last Admin: 06/04/18 07:25 Dose: 3 ml Bisacodyl (Dulcolax 10 Mg Supp) 10 mg RC DAILY [facility] Stop: 07/22/18 12:14 Last Admin: 06/04/18 09:45 Dose: Not Given Budesonide (Pulmicort) 0.5 mg HHN BIDRT [facility] Stop: 07/22/18 18:59 Last Admin: 06/04/18 07:44 Dose: 0.5 mg Calamine/Phenol (Calmoseptine) 1 appl TP QID PRN PRN Reason: Skin Irritation Stop: 07/25/18 15:43 Last Admin: 05/26/18 17:23 Dose: 1 appl [place] Oil/Irish Balsam/Trypsin (Venelex) 1 appl TP DAILY [facility] Stop: 07/25/18 15:59 Last Admin: 06/03/18 17:00 Dose: 1 appl Chlorhexidine Gluconate (Peridex) 15 ml MM 0800,1999 [facility] Stop: 07/31/18 19:59 Last Admin: 06/04/18 08:00 Dose: 15 ml Divalproex Sodium (Depakote Dr) 250 mg PO BID [facility]; Protocol Stop: 07/22/18 16:59 Last Admin: 06/04/18 09:45 Dose: Not Given Gabapentin (Neurontin) 300 mg PO TID [facility] Stop: 07/22/18 13:59 Last Admin: 06/04/18 09:46 Dose: Not Given Hydromorphone HCl (Dilaudid) 1 mg IVP Q3H PRN PRN Reason: Severe Pain Stop: 07/31/18 13:19 Sodium Chloride (Nacl 0.9%) 1,000 mls @ 100 mls/hr IV .Q10H [facility] Stop: 07/31/18 13:29 Last Admin: 06/04/18 07:23 Dose: 100 mls/hr Amiodarone HCl 450 mg/ (Dextrose) 259 mls @ 0 mls/hr IV TITR [facility]; Protocol Stop: 07/31/18 20:14 Last Titration: 06/03/18 10:04 Dose: 0 mg/min, 0 mls/hr Norepinephrine Bitartrate 4 mg (/ Dextrose) 254 mls @ 0 mls/hr IV TITR PRN; Protocol PRN Reason: BP MAINTENANCE (PER PROTOCOL) Stop: 07/31/18 17:54 Last Admin: 06/04/18 03:30 Dose: 3 mcg/min, 11.43 mls/hr Propofol (Diprivan) 1,000 mg in 100 mls @ 0 mls/hr IV TITR [facility]; Protocol Stop: 07/31/18 18:43 Last Titration: 06/04/18 09:37 Dose: 0 mcg/kg/min, 0 mls/hr Phenylephrine HCl 10 mg/ (Sodium Chloride) 250 mls @ 75 mls/hr IV TITR [facility]; Protocol Stop: 07/31/18 20:44 Last Titration: 06/01/18 22:00 Dose: 0 mcg/min, 0 mls/hr Meropenem 500 mg/ Sodium (Chloride) 100 mls @ 100 mls/hr IV Q8H [facility] Stop: 07/31/18 20:59 Last Infusion: 06/04/18 05:20 Dose: Infused Vancomycin HCl 1 gm/ Sodium (Chloride) 250 mls @ 165 mls/hr IV Q24H [facility] Stop: 08/01/18 09:59 Last Admin: 06/04/18 10:49 Dose: 165 mls/hr Multivitamins/Minerals 10 ml/Insulin Human Regular 35 units / Dextrose/ Amino Acids/Electrolytes/ Sterile Water 1,710.35 mls @ 70 mls/hr IV .Q24H [facility] Stop: 06/25/18 15:59 Last Admin: 06/03/18 16:02 Dose: 70 mls/hr Insulin Aspart (Novolog Insulin Sliding Scale) 0 units SUBQ Q6HR [facility]; Protocol Stop: 07/22/18 11:59 Last Admin: 06/04/18 05:30 Dose: Not Given Lactobacillus Rhamnosus (Culturelle 15b) 1 each PO DAILY [facility] Stop: 07/25/18 08:59 Last Admin: 06/04/18 09:46 Dose: Not Given Lorazepam (Ativan) 0.5 mg IVP Q6H PRN PRN Reason: AGITATION Stop: 07/30/18 15:47 Miscellaneous (Probiotic Screen) 1 ea MC PRN PRN PRN Reason: PROTOCOL Stop: 07/24/18 14:14 Miscellaneous (Vancomycin Iv Per Pharmacy) 1 ea MC PRN [facility] Stop: 07/31/18 20:44 Miscellaneous (Tpn Per Pharmacy) 1 ea MC PRN PRN PRN Reason: TPN PER RX Stop: 08/02/18 07:51 Morphine Sulfate (Morphine) 2 mg IVP Q3H PRN PRN Reason: Pain (Severe) Stop: 07/21/18 22:22 Last Admin: 06/04/18 04:17 Dose: 2 mg Ondansetron HCl (Zofran) 4 mg IV Q6H PRN PRN Reason: Nausea / Vomiting Stop: 07/21/18 22:24 Last Admin: 05/25/18 11:11 Dose: 4 mg Pantoprazole Sodium (Protonix) 40 mg IVP QDAC [facility] Stop: 08/02/18 08:59 Last Admin: 06/04/18 07:23 Dose: 40 mg General: No acute distress Cardiovascular: Regular rate Lungs: Clear to auscultation Abdomen: Soft, Drain, no Distended - Procedures Procedures: Procedures Procedure Code Date EMERGENCY DEPT VISIT 30079 02/03/00 EXCISION OF SMALL INTESTINE, PERC ENDO APPROACH [id number] 05/22/18 EXCISION OF TRANSVERSE COLON, PERC ENDO APPROACH [id number] 05/22/18 IMMOBILIZ/WOUND ATTN NEC 93.59 08/01/01 RELEASE SMALL INTESTINE, OPEN APPROACH [id number] 05/22/18 REPAIR SMALL INTESTINE, PERCUTANEOUS ENDOSCOPIC APPROACH [id number] 05/22/18 RESPIRATORY VENTILATION, 24-96 CONSECUTIVE HOURS [id number] 05/22/18 Assessment/Plan - Problem List Patient Problems: All Active Problems Bowel obstruction (Acute) K56.609 Bowel obstruction (Acute) K56.609 PERIPHERAL TREMORS WITH DIAPHORESIS (Acute) - Assessment Assessment: Small bowel obstruction s/p EXP LAP Incarcerated vental herania s/p repair Post op respiratory failure Pnemonia Septic shock - Plan Plan: Titrate vasopressor Titrate vent support IV fluids Broad sprectum antibiotics Monitor I/O Pain control Post op care Monitor lab and vitals DVT prophylaxis LTAC EVAL Nutritional Asmnt/Malnutr-PDOC - Dietary Evaluation Malnutrition Findings (Please click <Entered> for more info): Nutritional Asmnt/Malnutrition Start: 05/23/18 16: 41 Text: Status: Complete Freq: Protocol: Document 05/23/18 16:41 LCHENG (Rec: 05/23/18 16:54 [email or web address] [id number]) Nutritional Asmnt/Malnutrition Patient General Information Nutritional Screening High Risk Consult Diagnosis bowel obstruction Pertinent Medical Hx/Surgical Hx HTN, dyslipidemia, depression, anxiety, impulse disorder Subjective Information Consult received for elevated glucose 249. pt admitted for abdominal pain. Pt seen resting in bed at time of visit. Pt is NPO, NGT on suction. Current Diet Order/ Nutrition Support NPO Pertinent Medications novolot, piperacillin, zofran, piperacillin, nacl Pertinent Labs 05/23 Na 120, Cl 89, Cr 0.5, glucsose 241, alb 3.4 Nutritional Hx/Data Height 1.63 m Height (Calculated Centimeters) 162.6 Current Weight (lbs) 77.111 kg Weight (Calculated Kilograms) 77.1 Weight (Calculated Grams) 26163.7 [place] Body Weight 120 Body Mass Index (BMI) 29.2 Weight Status Overweight GI Symptoms GI Symptoms None Last BM not indicated Difficult in: None Skin Integrity/Comment: ecchymosis Current %PO Negligible < 25% Estimated Nutritional Goals BEE in Kcals: Using Current wt Calories/Kcals/Kg 23-27 Kcals Calculated Protein: Using Current wt Protein g/k.8-1 Protein Calculated - Fluid: ml Nutritional Problem 2. Problem Problem altered nutrition related labs Etiology hyperglycemia Signs/Symptoms: glucose 241-249 1. Problem Problem inadequate food intake Etiology GI dysfunction Signs/Symptoms: pt on NPO Malnutrition Alert Is there a minimum of two criteria No selected? Query Text:Check all the applicable criteria. A minimum of two criteria are recommended for diagnosis of either severe or non-severe malnutrition. Malnutrition Related to Morbid Obesity Malnutrition related to morbid obesity No Intervention/Recommendation Comments 1. Monitor NPO status. Recommend clear liquid diet with Ensure Clear TID if diet advanced when medically appropriate 2. Monitor GI, wt, labs and skin integrity 3. F/U as high risk in 2-3 days Expected Outcomes/Goals Expected Outcomes/Goals 1. oral diet initiated in 2-3 days 2. Wt stability, skin to remain intact, labs to approach WNL.
[2018-06-04 12:33] LABS: pH 7.49 (7.35-7.45)
[2018-06-04 12:35] LABS: ALLEN TEST Positive
[2018-06-04] MEDS: TPN 8.5%-70% CUSTOM IV SCH (17:26)
--- NOTE | 2018-06-04 17:47 | Infectious Disease Prog Note ---
Infectious Disease Subjective - Review of Systems Service Date: 06/04/18 Subjective: There is no new change, no fever. Infectious Disease Objective - Results Result Diagrams: 06/04/18 09:00 06/04/18 04:04 Recent Labs: Laboratory Last Values WBC 15.2 Th/cmm (4.8-10.8) H 06/04/18 09:00 Corrected WBC (auto) 3.0 Th/cmm (4.8-10.8) L 05/26/18 04:00 RBC 3.57 Mil/cmm (3.80-5.20) L 06/04/18 09:00 Hgb 10.4 gm/dL (12-16) L 06/04/18 09:00 Hct 30.5 % (41.0-60) L 06/04/18 09:00 MCV 85.4 fl (81-100) 06/04/18 09:00 MCH 29.2 pg (27.0-31.0) 06/04/18 09:00 MCHC Differential 34.1 pg (28.0-36.0) 06/04/18 09:00 RDW 13.2 % (11.5-20.0) 06/04/18 09:00 Plt Count 135 Th/cmm (150-400) L 06/04/18 09:00 MPV 8.1 fl 06/04/18 09:00 Add Manual Diff YES 06/04/18 09:00 Neutrophils % 74.6 % (40.0-80.0) 06/01/18 04:30 Band Neutrophils % 7 % (0-10) 06/03/18 04:25 Lymphocytes % 7.9 % (20.0-50.0) L 06/01/18 04:30 Monocytes % 15.9 % (2.0-10.0) H 06/01/18 04:30 Eosinophils % 1.5 % (0.0-5.0) 06/01/18 04:30 Basophils % 0.1 % (0.0-2.0) 06/01/18 04:30 Neutrophils (Manual) 89 % (40-80) H 06/04/18 09:00 Lymphocytes 6 % (20-50) L 06/04/18 09:00 Monocytes 5 % (2-10) 06/04/18 09:00 Eosinophils 0 % (0-5) 06/01/18 04:30 Basophils 0 % (0-3) 06/01/18 04:30 Platelet Estimate ADEQUATE (NORMAL) 06/04/18 09:00 PT 10.8 SECONDS (9.5-11.5) 05/23/18 04:30 INR 1.04 (0.5-1.4) 05/23/18 04:30 PTT (Actin FS) 27.4 SECONDS (26.0-38.0) 05/23/18 04:30 Specimen Source ARTERIAL 06/04/18 12:06 Sample Site Right Radial 06/04/18 12:06 pH 7.49 (7.35-7.45) H 06/04/18 12:06 pCO2 35.0 mmHg (35.0-45.0) 06/04/18 12:06 pO2 142.0 mmHg (80.0-100.0) H 06/04/18 12:06 HCO3 27.7 mEq/L (20.0-26.0) H 06/04/18 12:06 Base Excess 35.0 mEq/L (-3.0-3.0) H 06/04/18 12:06 O2 Saturation 99.0 % (92.0-100.0) 06/04/18 12:06 Ricky Test Positive 06/04/18 12:06 Vent Rate NA 06/04/18 12:06 Inspired O2 40 06/04/18 12:06 Tidal Volume NA 06/04/18 12:06 PEEP NA 06/04/18 12:06 Pressure (ins/psv/peep) NA 06/04/18 12:06 Critical Value DM 06/04/18 12:06 Sodium 138 mEq/L (136-145) 06/04/18 04:04 Potassium 3.6 mEq/L (3.5-5.1) 06/04/18 04:04 Chloride 107 mEq/L (98-107) 06/04/18 04:04 Carbon Dioxide 25.6 mEq/L (21.0-31.0) 06/04/18 04:04 Anion Gap 9.0 (7.0-16.0) 06/04/18 04:04 BUN 22 mg/dL (7-25) 06/04/18 04:04 Creatinine 0.4 mg/dL (0.6-1.2) L 06/04/18 04:04 Est GFR ( Amer) TNP 06/04/18 04:04 Est GFR (Non-Af Amer) TNP 06/04/18 04:04 BUN/Creatinine Ratio 55.0 06/04/18 04:04 Glucose 134 mg/dL (70-105) H D 06/04/18 04:04 POC Glucose 134 MG/DL (70 - 105) H 06/04/18 17:29 Plasma/Ser Osmolality 259 mOsmol/kg (280-301) L 05/23/18 09:55 Whole Bld Lactic Acid 2.51 mmol/L (0.60-1.99) H* 06/02/18 09:15 Calcium 7.6 mg/dL (8.6-10.3) L 06/04/18 04:04 Phosphorus 2.6 mg/dL (2.5-5.0) 06/04/18 04:04 Magnesium 1.8 mg/dL (1.9-2.7) L 06/04/18 04:04 Total Bilirubin 0.5 mg/dL (0.3-1.0) 06/04/18 04:04 Direct Bilirubin 0.14 mg/dL (0.0-0.2) 05/24/18 07:05 AST 16 U/L (13-39) 06/04/18 04:04 ALT 11 U/L (7-52) 06/04/18 04:04 Alkaline Phosphatase 48 U/L (34-104) 06/04/18 04:04 Ammonia 46 umol/L (16-53) 05/25/18 04:00 Total Protein 4.2 gm/dL (6.0-8.3) L 06/04/18 04:04 Albumin 1.9 gm/dL (3.7-5.3) L 06/04/18 04:04 Globulin 2.3 gm/dL 06/04/18 04:04 Albumin/Globulin Ratio 0.8 (1.0-1.8) L 06/04/18 04:04 Prealbumin 9 mg/dL (9-32) 05/31/18 04:10 Triglycerides 74 mg/dL (<150) 05/31/18 04:10 Cholesterol 118 mg/dL (<200) 06/01/18 04:30 TSH 3.21 uIU/ml (0.34-5.60) 05/22/18 17:34 Urine Source CLEAN C 05/22/18 18:55 Urine Color YELLOW 12 18:55 Urine Clarity HAZY (CLEAR) 05/22/18 18:55 Urine pH 6.0 (4.6 - 8.0) 12 18:55 Ur Specific [place] >= 1.030 (1.005-1.030) 05/22/18 18:55 Urine Protein TRACE mg/dL (NEGATIVE) 05/22/18 18:55 Urine Glucose (UA) 100 mg/dL (NEGATIVE) H 05/22/18 18:55 Urine Ketones 40 mg/dL (NEGATIVE) H 05/22/18 18:55 Urine Blood MODERATE (NEGATIVE) H 05/22/18 18:55 Urine Nitrate POSITIVE (NEGATIVE) H 05/22/18 18:55 Urine Bilirubin NEGATIVE (NEGATIVE) 05/22/18 18:55 Urine Urobilinogen 0.2 E.U./dL (0.2 - 1.0) 05/22/18 18:55 Ur Leukocyte Esterase SMALL (NEGATIVE) H 05/22/18 18:55 Urine RBC 0-2 /hpf (0-5) 05/22/18 18:55 Urine WBC 6-10 /hpf (0-5) H 05/22/18 18:55 Ur Epithelial Cells OCCASIONAL /lpf (FEW) 05/22/18 18:55 Urine Bacteria 2+ /hpf (NONE SEEN) H 05/22/18 18:55 Urine Osmolality 583 mOsmol/kg 05/24/18 06:00 Ur Random Sodium 14 mmol/L 05/24/18 06:00 Vancomycin Trough 13.7 ug/mL (5-10) H 05/25/18 08:00 Valproic Acid 29.3 ug/mL (50.0-100.0) L 05/22/18 17:34 Blood Type O NEGATIVE 06/01/18 14:45 Antibody Screen NEGATIVE 06/01/18 14:45 Crossmatch See Detail 06/01/18 14:45 - Physical Exam Vitals and I&O: Vital Signs Temp 97.6 F 06/04/18 12:00 Pulse 98 06/04/18 15:10 Resp 20 06/04/18 15:10 BP 134/70 06/04/18 15:00 Pulse Ox 99 06/04/18 15:10 Intake & Output 06/03/18 06/04/18 06/04/18 18:59 06:59 18:59 Intake Total 2574.361 7218.991 0865.323 Output Total 2610 1475 Balance -35.639 -79.327 3100.323 Weight (lbs) 93.44 kg 94.393 kg Intake: Intake, IV Amount 598.179 5274.673 3100.323 Amiodarone 450 mg In 241.164 Dextrose 5% 250 ml @ Titrate IV TITR [facility] Rx#: [id number] Meropenem 500 mg In 200 200 100 Sodium Chloride 0.9% 100 ml @ 100 mls/hr IV Q8H [facility] Rx#:[id number] Multivitamin Inj 10 ml 1710.35 Insulin Human Regular 35 units In Dextrose 70% 500 ml In Amino Acids 8.5% 500 ml In Water, Sterile 700 ml @ 70 mls/hr IV . Q24H [facility] Rx#:[id number] Norepinephrine 4 mg In 306.197 120.269 Dextrose 5% 250 ml @ Titrate IV TITR PRN Rx#: [id number] Propofol 1,000 mg In 100 75.404 39.973 ml @ Per Protocol IV TITR [facility] Rx#:[id number] Sodium Chloride 0.9% 1, 1000 1000 000 ml @ 100 mls/hr IV . Q10H [facility] Rx#:[id number] Vancomycin HCl 1 gm In 250 250 Sodium Chloride 0.9% 250 ml @ 165 mls/hr IV Q24H [facility] Rx#:[id number] TPN/PPN 840 Blood Product 500 Other 237 Output: Gastric Drainage 550 200 Drainage 860 975 Left Lower Abdomen 500 545 Right Lower Abdomen 360 430 Urine 1200 300 Other: # Bowel Movements 0 0 Weight Source Bedscale Bedscale Active Medications: Current Medications Acetaminophen (Tylenol 650mg Supp) 650 mg RC Q4H PRN PRN Reason: PAIN OR TEMP >101 Stop: 07/21/18 22:25 Albuterol/Ipratropium (Duoneb Neb) 3 ml HHN [id number] [facility] Stop: 07/22/18 18:59 Last Admin: 06/04/18 15:10 Dose: 3 ml Bisacodyl (Dulcolax 10 Mg Supp) 10 mg RC DAILY [facility] Stop: 07/22/18 12:14 Last Admin: 06/04/18 09:45 Dose: Not Given Budesonide (Pulmicort) 0.5 mg HHN BIDRT [facility] Stop: 07/22/18 18:59 Last Admin: 06/04/18 07:44 Dose: 0.5 mg Calamine/Phenol (Calmoseptine) 1 appl TP QID PRN PRN Reason: Skin Irritation Stop: 07/25/18 15:43 Last Admin: 05/26/18 17:23 Dose: 1 appl Lithia Oil/Slovenian Balsam/Trypsin (Venelex) 1 appl TP DAILY [facility] Stop: 07/25/18 15:59 Last Admin: 06/03/18 17:00 Dose: 1 appl Chlorhexidine Gluconate (Peridex) 15 ml MM 0800,1999 [facility] Stop: 07/31/18 19:59 Last Admin: 06/04/18 08:00 Dose: 15 ml Divalproex Sodium (Depakote Dr) 250 mg PO BID [facility]; Protocol Stop: 07/22/18 16:59 Last Admin: 06/04/18 09:45 Dose: Not Given Gabapentin (Neurontin) 300 mg PO TID [facility] Stop: 07/22/18 13:59 Last Admin: 06/04/18 09:46 Dose: Not Given Hydromorphone HCl (Dilaudid) 1 mg IVP Q3H PRN PRN Reason: Severe Pain Stop: 07/31/18 13:19 Sodium Chloride (Nacl 0.9%) 1,000 mls @ 100 mls/hr IV .Q10H [facility] Stop: 07/31/18 13:29 Last Admin: 06/04/18 17:23 Dose: 100 mls/hr Amiodarone HCl 450 mg/ (Dextrose) 259 mls @ 0 mls/hr IV TITR [facility]; Protocol Stop: 07/31/18 20:14 Last Titration: 06/03/18 10:04 Dose: 0 mg/min, 0 mls/hr Norepinephrine Bitartrate 4 mg (/ Dextrose) 254 mls @ 0 mls/hr IV TITR PRN; Protocol PRN Reason: BP MAINTENANCE (PER PROTOCOL) Stop: 07/31/18 17:54 Last Admin: 06/04/18 03:30 Dose: 3 mcg/min, 11.43 mls/hr Propofol (Diprivan) 1,000 mg in 100 mls @ 0 mls/hr IV TITR [facility]; Protocol Stop: 07/31/18 18:43 Last Titration: 06/04/18 09:37 Dose: 0 mcg/kg/min, 0 mls/hr Phenylephrine HCl 10 mg/ (Sodium Chloride) 250 mls @ 75 mls/hr IV TITR [facility]; Protocol Stop: 07/31/18 20:44 Last Titration: 06/01/18 22:00 Dose: 0 mcg/min, 0 mls/hr Meropenem 500 mg/ Sodium (Chloride) 100 mls @ 100 mls/hr IV Q8H [facility] Stop: 07/31/18 20:59 Last Infusion: 06/04/18 14:55 Dose: Infused Vancomycin HCl 1 gm/ Sodium (Chloride) 250 mls @ 165 mls/hr IV Q24H [facility] Stop: 08/01/18 09:59 Last Infusion: 06/04/18 14:55 Dose: Infused Multivitamins/Minerals 10 ml/Insulin Human Regular 35 units / Dextrose/ Amino Acids/Electrolytes/ Sterile Water 1,710.35 mls @ 70 mls/hr IV .Q24H [facility] Stop: 06/25/18 15:59 Last Admin: 06/04/18 17:26 Dose: 70 mls/hr Insulin Aspart (Novolog Insulin Sliding Scale) 0 units SUBQ Q6HR [facility]; Protocol Stop: 07/22/18 11:59 Last Admin: 06/04/18 12:41 Dose: 2 units Lactobacillus Rhamnosus (Culturelle 15b) 1 each PO DAILY [facility] Stop: 07/25/18 08:59 Last Admin: 06/04/18 09:46 Dose: Not Given Lorazepam (Ativan) 0.5 mg IVP Q6H PRN PRN Reason: AGITATION Stop: 07/30/18 15:47 Miscellaneous (Probiotic Screen) 1 ea MC PRN PRN PRN Reason: PROTOCOL Stop: 07/24/18 14:14 Miscellaneous (Vancomycin Iv Per Pharmacy) 1 ea MC PRN [facility] Stop: 07/31/18 20:44 Miscellaneous (Tpn Per Pharmacy) 1 ea MC PRN PRN PRN Reason: TPN PER RX Stop: 08/02/18 07:51 Morphine Sulfate (Morphine) 2 mg IVP Q3H PRN PRN Reason: Pain (Severe) Stop: 07/21/18 22:22 Last Admin: 06/04/18 17:41 Dose: 2 mg Ondansetron HCl (Zofran) 4 mg IV Q6H PRN PRN Reason: Nausea / Vomiting Stop: 07/21/18 22:24 Last Admin: 05/25/18 11:11 Dose: 4 mg Pantoprazole Sodium (Protonix) 40 mg IVP QDAC [facility] Stop: 08/02/18 08:59 Last Admin: 06/04/18 07:23 Dose: 40 mg General: no acute distress, cachectic HEENT: atraumatic, normocephalic, PERRLA, EOMI Neck: supple, no thyromegaly Cardiovascular: S1S2, regular Lungs: clear to auscultation bilaterally, clear to percussion Abdomen: soft, no tender, no distended Extremities: no cyanosis, no clubbing, no edema Neurological: awake, alert - Procedures Procedures: Procedures Procedure Code Date EMERGENCY DEPT VISIT 98021 02/03/00 EXCISION OF SMALL INTESTINE, PERC ENDO APPROACH [id number] 05/22/18 EXCISION OF TRANSVERSE COLON, PERC ENDO APPROACH [id number] 05/22/18 IMMOBILIZ/WOUND ATTN NEC 93.59 08/01/01 RELEASE SMALL INTESTINE, OPEN APPROACH [id number] 05/22/18 REPAIR SMALL INTESTINE, PERCUTANEOUS ENDOSCOPIC APPROACH [id number] 05/22/18 RESPIRATORY VENTILATION, 24-96 CONSECUTIVE HOURS [id number] 05/22/18 Infectious Disease Assmt/Plan - Problem List Patient Problems: All Active Problems Bowel obstruction (Acute) K56.609 Bowel obstruction (Acute) K56.609 PERIPHERAL TREMORS WITH DIAPHORESIS (Acute) - Assessment Assessment: 1. Urinary tract infection. treated. 2. Ileus versus small bowel obstruction. 3. Leukocytosis improved, secondary to urinary tract infection and ileus versus small bowel obstruction. 4. Hyponatremia, rule out syndrome of inappropriate antidiuretic hormone. 5. History of psychosis. 6. History of hypertension. - Plan Plan: Wound care. Patient is getting transferred to higher level of care. Off antibiotics. I will s/o please call me as needed. Nutritional Asmnt/Malnutr-PDOC - Dietary Evaluation Malnutrition Findings (Please click <Entered> for more info): Nutritional Asmnt/Malnutrition Start: 05/23/18 16: 41 Text: Status: Complete Freq: Protocol: Document 05/23/18 16:41 [id number] (Rec: 05/23/18 16:54 KD [id number]) Nutritional Asmnt/Malnutrition Patient General Information Nutritional Screening High Risk Consult Diagnosis bowel obstruction Pertinent Medical Hx/Surgical Hx HTN, dyslipidemia, depression, anxiety, impulse disorder Subjective Information Consult received for elevated glucose 249. pt admitted for abdominal pain. Pt seen resting in bed at time of visit. Pt is NPO, NGT on suction. Current Diet Order/ Nutrition Support NPO Pertinent Medications novolot, piperacillin, zofran, piperacillin, nacl Pertinent Labs 05/23 Na 120, Cl 89, Cr 0.5, glucsose 241, alb 3.4 Nutritional Hx/Data Height 1.63 m Height (Calculated Centimeters) 162.6 Current Weight (lbs) 77.111 kg Weight (Calculated Kilograms) 77.1 Weight (Calculated Grams) 57506.7 [place] Body Weight 120 Body Mass Index (BMI) 29.2 Weight Status Overweight GI Symptoms GI Symptoms None Last BM not indicated Difficult in: None Skin Integrity/Comment: ecchymosis Current %PO Negligible < 25% Estimated Nutritional Goals BEE in Kcals: Using Current wt Calories/Kcals/Kg 23-27 Kcals Calculated Protein: Using Current wt Protein g/k.8-1 Protein Calculated 62-77 Fluid: ml [id number] Nutritional Problem 2. Problem Problem altered nutrition related labs Etiology hyperglycemia Signs/Symptoms: glucose 241-249 1. Problem Problem inadequate food intake Etiology GI dysfunction Signs/Symptoms: pt on NPO Malnutrition Alert Is there a minimum of two criteria No selected? Query Text:Check all the applicable criteria. A minimum of two criteria are recommended for diagnosis of either severe or non-severe malnutrition. Malnutrition Related to Morbid Obesity Malnutrition related to morbid obesity No Intervention/Recommendation Comments 1. Monitor NPO status. Recommend clear liquid diet with Ensure Clear TID if diet advanced when medically appropriate 2. Monitor GI, wt, labs and skin integrity 3. F/U as high risk in 2-3 days Expected Outcomes/Goals Expected Outcomes/Goals 1. oral diet initiated in 2-3 days 2. Wt stability, skin to remain intact, labs to approach WNL.
--- NOTE | 2018-06-04 18:30 | General Progress Note ---
Subjective - Review of Systems Subjective: late entry: Patient seen and examined seems more awake low dose vasopressor vent weaning in progress Objective - Results Result Diagrams: 06/05/18 04:20 06/05/18 04:20 Recent Labs: Laboratory Last Values WBC 15.2 Th/cmm (4.8-10.8) H 06/04/18 09:00 Corrected WBC (auto) 3.0 Th/cmm (4.8-10.8) L 05/26/18 04:00 RBC 3.57 Mil/cmm (3.80-5.20) L 06/04/18 09:00 Hgb 10.4 gm/dL (12-16) L 06/04/18 09:00 Hct 30.5 % (41.0-60) L 06/04/18 09:00 MCV 85.4 fl (81-100) 06/04/18 09:00 MCH 29.2 pg (27.0-31.0) 06/04/18 09:00 MCHC Differential 34.1 pg (28.0-36.0) 06/04/18 09:00 RDW 13.2 % (11.5-20.0) 06/04/18 09:00 Plt Count 135 Th/cmm (150-400) L 06/04/18 09:00 MPV 8.1 fl 06/04/18 09:00 Add Manual Diff YES 06/04/18 09:00 Neutrophils % 74.6 % (40.0-80.0) 06/01/18 04:30 Band Neutrophils % 7 % (0-10) 06/03/18 04:25 Lymphocytes % 7.9 % (20.0-50.0) L 06/01/18 04:30 Monocytes % 15.9 % (2.0-10.0) H 06/01/18 04:30 Eosinophils % 1.5 % (0.0-5.0) 06/01/18 04:30 Basophils % 0.1 % (0.0-2.0) 06/01/18 04:30 Neutrophils (Manual) 89 % (40-80) H 06/04/18 09:00 Lymphocytes 6 % (20-50) L 06/04/18 09:00 Monocytes 5 % (2-10) 06/04/18 09:00 Eosinophils 0 % (0-5) 06/01/18 04:30 Basophils 0 % (0-3) 06/01/18 04:30 Platelet Estimate ADEQUATE (NORMAL) 06/04/18 09:00 PT 10.8 SECONDS (9.5-11.5) 05/23/18 04:30 INR 1.04 (0.5-1.4) 05/23/18 04:30 PTT (Actin FS) 27.4 SECONDS (26.0-38.0) 05/23/18 04:30 Specimen Source ARTERIAL 06/04/18 12:06 Sample Site Right Radial 06/04/18 12:06 pH 7.49 (7.35-7.45) H 06/04/18 12:06 pCO2 35.0 mmHg (35.0-45.0) 06/04/18 12:06 pO2 142.0 mmHg (80.0-100.0) H 06/04/18 12:06 HCO3 27.7 mEq/L (20.0-26.0) H 06/04/18 12:06 Base Excess 35.0 mEq/L (-3.0-3.0) H 06/04/18 12:06 O2 Saturation 99.0 % (92.0-100.0) 06/04/18 12:06 Ricky Test Positive 06/04/18 12:06 Vent Rate NA 06/04/18 12:06 Inspired O2 40 06/04/18 12:06 Tidal Volume NA 06/04/18 12:06 PEEP NA 06/04/18 12:06 Pressure (ins/psv/peep) NA 06/04/18 12:06 Critical Value DM 06/04/18 12:06 Sodium 138 mEq/L (136-145) 06/04/18 04:04 Potassium 3.6 mEq/L (3.5-5.1) 06/04/18 04:04 Chloride 107 mEq/L (98-107) 06/04/18 04:04 Carbon Dioxide 25.6 mEq/L (21.0-31.0) 06/04/18 04:04 Anion Gap 9.0 (7.0-16.0) 06/04/18 04:04 BUN 22 mg/dL (7-25) 06/04/18 04:04 Creatinine 0.4 mg/dL (0.6-1.2) L 06/04/18 04:04 Est GFR ( Amer) TNP 06/04/18 04:04 Est GFR (Non-Af Amer) TNP 06/04/18 04:04 BUN/Creatinine Ratio 55.0 06/04/18 04:04 Glucose 134 mg/dL (70-105) H D 06/04/18 04:04 POC Glucose 134 MG/DL (70 - 105) H 06/04/18 17:29 Plasma/Ser Osmolality 259 mOsmol/kg (280-301) L 05/23/18 09:55 Whole Bld Lactic Acid 2.51 mmol/L (0.60-1.99) H* 06/02/18 09:15 Calcium 7.6 mg/dL (8.6-10.3) L 06/04/18 04:04 Phosphorus 2.6 mg/dL (2.5-5.0) 06/04/18 04:04 Magnesium 1.8 mg/dL (1.9-2.7) L 06/04/18 04:04 Total Bilirubin 0.5 mg/dL (0.3-1.0) 06/04/18 04:04 Direct Bilirubin 0.14 mg/dL (0.0-0.2) 05/24/18 07:05 AST 16 U/L (13-39) 06/04/18 04:04 ALT 11 U/L (7-52) 06/04/18 04:04 Alkaline Phosphatase 48 U/L (34-104) 06/04/18 04:04 Ammonia 46 umol/L (16-53) 05/25/18 04:00 Total Protein 4.2 gm/dL (6.0-8.3) L 06/04/18 04:04 Albumin 1.9 gm/dL (3.7-5.3) L 06/04/18 04:04 Globulin 2.3 gm/dL 06/04/18 04:04 Albumin/Globulin Ratio 0.8 (1.0-1.8) L 06/04/18 04:04 Prealbumin 9 mg/dL (9-32) 05/31/18 04:10 Triglycerides 74 mg/dL (<150) 05/31/18 04:10 Cholesterol 118 mg/dL (<200) 06/01/18 04:30 TSH 3.21 uIU/ml (0.34-5.60) 05/22/18 17:34 Urine Source CLEAN C 05/22/18 18:55 Urine Color YELLOW 05/22/18 18:55 Urine Clarity HAZY (CLEAR) 05/22/18 18:55 Urine pH 6.0 (4.6 - 8.0) 05/22/18 18:55 Ur Specific [place] >= 1.030 (1.005-1.030) 05/22/18 18:55 Urine Protein TRACE mg/dL (NEGATIVE) 05/22/18 18:55 Urine Glucose (UA) 100 mg/dL (NEGATIVE) H 05/22/18 18:55 Urine Ketones 40 mg/dL (NEGATIVE) H 05/22/18 18:55 Urine Blood MODERATE (NEGATIVE) H 05/22/18 18:55 Urine Nitrate POSITIVE (NEGATIVE) H 05/22/18 18:55 Urine Bilirubin NEGATIVE (NEGATIVE) 05/22/18 18:55 Urine Urobilinogen 0.2 E.U./dL (0.2 - 1.0) 05/22/18 18:55 Ur Leukocyte Esterase SMALL (NEGATIVE) H 05/22/18 18:55 Urine RBC 0-2 /hpf (0-5) 05/22/18 18:55 Urine WBC 6-10 /hpf (0-5) H 05/22/18 18:55 Ur Epithelial Cells OCCASIONAL /lpf (FEW) 05/22/18 18:55 Urine Bacteria 2+ /hpf (NONE SEEN) H 05/22/18 18:55 Urine Osmolality 583 mOsmol/kg 05/24/18 06:00 Ur Random Sodium 14 mmol/L 05/24/18 06:00 Vancomycin Trough 13.7 ug/mL (5-10) H 05/25/18 08:00 Valproic Acid 29.3 ug/mL (50.0-100.0) L 05/22/18 17:34 Blood Type O NEGATIVE 06/01/18 14:45 Antibody Screen NEGATIVE 06/01/18 14:45 Crossmatch See Detail 06/01/18 14:45 - Physical Exam Vitals and I&O: Vital Signs Temp 97.6 F 06/04/18 12:00 Pulse 98 06/04/18 15:10 Resp 20 06/04/18 15:10 BP 134/70 06/04/18 15:00 Pulse Ox 99 06/04/18 15:10 Intake & Output 06/03/18 06/04/18 06/04/18 18:59 06:59 18:59 Intake Total 2574.361 2555.523 3645.323 Output Total 2610 1475 Balance -35.639 -79.327 3100.323 Weight (lbs) 93.44 kg 94.393 kg Intake: Intake, IV Amount 757.602 5564.673 3100.323 Amiodarone 450 mg In 241.164 Dextrose 5% 250 ml @ Titrate IV TITR [facility] Rx#: [id number] Meropenem 500 mg In 200 200 100 Sodium Chloride 0.9% 100 ml @ 100 mls/hr IV Q8H [facility] Rx#:[id number] Multivitamin Inj 10 ml 1710.35 Insulin Human Regular 35 units In Dextrose 70% 500 ml In Amino Acids 8.5% 500 ml In Water, Sterile 700 ml @ 70 mls/hr IV . Q24H [facility] Rx#:[id number] Norepinephrine 4 mg In 306.197 120.269 Dextrose 5% 250 ml @ Titrate IV TITR PRN Rx#: [id number] Propofol 1,000 mg In 100 75.404 39.973 ml @ Per Protocol IV TITR [facility] Rx#:[id number] Sodium Chloride 0.9% 1, 1000 1000 000 ml @ 100 mls/hr IV . Q10H [facility] Rx#:[id number] Vancomycin HCl 1 gm In 250 250 Sodium Chloride 0.9% 250 ml @ 165 mls/hr IV Q24H [facility] Rx#:[id number] TPN/PPN 840 Blood Product 500 Other 237 Output: Gastric Drainage 550 200 Drainage 860 975 Left Lower Abdomen 500 545 Right Lower Abdomen 360 430 Urine 1200 300 Other: # Bowel Movements 0 0 Weight Source Bedscale Bedscale Active Medications: Current Medications Acetaminophen (Tylenol 650mg Supp) 650 mg RC Q4H PRN PRN Reason: PAIN OR TEMP >101 Stop: 07/21/18 22:25 Albuterol/Ipratropium (Duoneb Neb) 3 ml HHN [id number] [facility] Stop: 07/22/18 18:59 Last Admin: 06/04/18 15:10 Dose: 3 ml Bisacodyl (Dulcolax 10 Mg Supp) 10 mg RC DAILY [facility] Stop: 07/22/18 12:14 Last Admin: 06/04/18 09:45 Dose: Not Given Budesonide (Pulmicort) 0.5 mg HHN BIDRT [facility] Stop: 07/22/18 18:59 Last Admin: 06/04/18 07:44 Dose: 0.5 mg Calamine/Phenol (Calmoseptine) 1 appl TP QID PRN PRN Reason: Skin Irritation Stop: 07/25/18 15:43 Last Admin: 05/26/18 17:23 Dose: 1 appl [place] Oil/[place] Balsam/Trypsin (Venelex) 1 appl TP DAILY [facility] Stop: 07/25/18 15:59 Last Admin: 06/03/18 17:00 Dose: 1 appl Chlorhexidine Gluconate (Peridex) 15 ml MM 0800,1999 [facility] Stop: 07/31/18 19:59 Last Admin: 06/04/18 08:00 Dose: 15 ml Divalproex Sodium (Depakote Dr) 250 mg PO BID [facility]; Protocol Stop: 07/22/18 16:59 Last Admin: 06/04/18 09:45 Dose: Not Given Gabapentin (Neurontin) 300 mg PO TID [facility] Stop: 07/22/18 13:59 Last Admin: 06/04/18 09:46 Dose: Not Given Hydromorphone HCl (Dilaudid) 1 mg IVP Q3H PRN PRN Reason: Severe Pain Stop: 07/31/18 13:19 Sodium Chloride (Nacl 0.9%) 1,000 mls @ 100 mls/hr IV .Q10H [facility] Stop: 07/31/18 13:29 Last Admin: 06/04/18 17:23 Dose: 100 mls/hr Amiodarone HCl 450 mg/ (Dextrose) 259 mls @ 0 mls/hr IV TITR [facility]; Protocol Stop: 07/31/18 20:14 Last Titration: 06/03/18 10:04 Dose: 0 mg/min, 0 mls/hr Norepinephrine Bitartrate 4 mg (/ Dextrose) 254 mls @ 0 mls/hr IV TITR PRN; Protocol PRN Reason: BP MAINTENANCE (PER PROTOCOL) Stop: 07/31/18 17:54 Last Admin: 06/04/18 03:30 Dose: 3 mcg/min, 11.43 mls/hr Propofol (Diprivan) 1,000 mg in 100 mls @ 0 mls/hr IV TITR [facility]; Protocol Stop: 07/31/18 18:43 Last Titration: 06/04/18 09:37 Dose: 0 mcg/kg/min, 0 mls/hr Phenylephrine HCl 10 mg/ (Sodium Chloride) 250 mls @ 75 mls/hr IV TITR [facility]; Protocol Stop: 07/31/18 20:44 Last Titration: 06/01/18 22:00 Dose: 0 mcg/min, 0 mls/hr Meropenem 500 mg/ Sodium (Chloride) 100 mls @ 100 mls/hr IV Q8H [facility] Stop: 07/31/18 20:59 Last Infusion: 06/04/18 14:55 Dose: Infused Vancomycin HCl 1 gm/ Sodium (Chloride) 250 mls @ 165 mls/hr IV Q24H [facility] Stop: 08/01/18 09:59 Last Infusion: 06/04/18 14:55 Dose: Infused Multivitamins/Minerals 10 ml/Insulin Human Regular 35 units / Dextrose/ Amino Acids/Electrolytes/ Sterile Water 1,710.35 mls @ 70 mls/hr IV .Q24H [facility] Stop: 06/25/18 15:59 Last Admin: 06/04/18 17:26 Dose: 70 mls/hr Insulin Aspart (Novolog Insulin Sliding Scale) 0 units SUBQ Q6HR [facility]; Protocol Stop: 07/22/18 11:59 Last Admin: 06/04/18 18:01 Dose: Not Given Lactobacillus Rhamnosus (Culturelle 15b) 1 each PO DAILY [facility] Stop: 07/25/18 08:59 Last Admin: 06/04/18 09:46 Dose: Not Given Lorazepam (Ativan) 0.5 mg IVP Q6H PRN PRN Reason: AGITATION Stop: 07/30/18 15:47 Miscellaneous (Probiotic Screen) 1 ea MC PRN PRN PRN Reason: PROTOCOL Stop: 07/24/18 14:14 Miscellaneous (Vancomycin Iv Per Pharmacy) 1 ea MC PRN [facility] Stop: 07/31/18 20:44 Miscellaneous (Tpn Per Pharmacy) 1 ea MC PRN PRN PRN Reason: TPN PER RX Stop: 08/02/18 07:51 Morphine Sulfate (Morphine) 2 mg IVP Q3H PRN PRN Reason: Pain (Severe) Stop: 07/21/18 22:22 Last Admin: 06/04/18 17:41 Dose: 2 mg Ondansetron HCl (Zofran) 4 mg IV Q6H PRN PRN Reason: Nausea / Vomiting Stop: 07/21/18 22:24 Last Admin: 05/25/18 11:11 Dose: 4 mg Pantoprazole Sodium (Protonix) 40 mg IVP QDAC [facility] Stop: 08/02/18 08:59 Last Admin: 06/04/18 07:23 Dose: 40 mg General: No acute distress HEENT: Other (ETT/VENT) Neck: Supple Cardiovascular: Regular rate Lungs: Clear to auscultation Abdomen: Soft, Drain, no Distended - Procedures Procedures: Procedures Procedure Code Date EMERGENCY DEPT VISIT 62684 02/03/00 EXCISION OF SMALL INTESTINE, PERC ENDO APPROACH [id number] 05/22/18 EXCISION OF TRANSVERSE COLON, PERC ENDO APPROACH [id number] 05/22/18 IMMOBILIZ/WOUND ATTN NEC 93.59 08/01/01 RELEASE SMALL INTESTINE, OPEN APPROACH [id number] 05/22/18 REPAIR SMALL INTESTINE, PERCUTANEOUS ENDOSCOPIC APPROACH [id number] 05/22/18 RESPIRATORY VENTILATION, 24-96 CONSECUTIVE HOURS [id number] 05/22/18 Assessment/Plan - Problem List Patient Problems: All Active Problems Bowel obstruction (Acute) K56.609 Bowel obstruction (Acute) K56.609 PERIPHERAL TREMORS WITH DIAPHORESIS (Acute) - Assessment Assessment: Small bowel obstruction s/p EXP LAP Incarcerated vental herania s/p repair Post op respiratory failure Pnemonia Septic shock - Plan Plan: Titrate vasopressor Titrate vent support IV fluids Broad sprectum antibiotics Monitor I/O Pain control Post op care Monitor lab and vitals DVT prophylaxis Nutritional Asmnt/Malnutr-PDOC - Dietary Evaluation Malnutrition Findings (Please click <Entered> for more info): Nutritional Asmnt/Malnutrition Start: 05/23/18 16: 41 Text: Status: Complete Freq: Protocol: Document 05/23/18 16:41 LCHENG (Rec: 05/23/18 16:54 [id number]) Nutritional Asmnt/Malnutrition Patient General Information Nutritional Screening High Risk Consult Diagnosis bowel obstruction Pertinent Medical Hx/Surgical Hx HTN, dyslipidemia, depression, anxiety, impulse disorder Subjective Information Consult received for elevated glucose 249. pt admitted for abdominal pain. Pt seen resting in bed at time of visit. Pt is NPO, NGT on suction. Current Diet Order/ Nutrition Support NPO Pertinent Medications novolot, piperacillin, zofran, piperacillin, nacl Pertinent Labs 05/23 Na 120, Cl 89, Cr 0.5, glucsose 241, alb 3.4 Nutritional Hx/Data Height 1.63 m Height (Calculated Centimeters) 162.6 Current Weight (lbs) 77.111 kg Weight (Calculated Kilograms) 77.1 Weight (Calculated Grams) 35608.7 Stella Body Weight 120 Body Mass Index (BMI) 29.2 Weight Status Overweight GI Symptoms GI Symptoms None Last BM not indicated Difficult in: None Skin Integrity/Comment: ecchymosis Current %PO Negligible < 25% Estimated Nutritional Goals BEE in Kcals: Using Current wt Calories/Kcals/Kg 23-27 Kcals Calculated 5403-9008 Protein: Using Current wt Protein g/k.8-1 Protein Calculated 62-77 Fluid: ml 0596-2662 Nutritional Problem 2. Problem Problem altered nutrition related labs Etiology hyperglycemia Signs/Symptoms: glucose 241-249 1. Problem Problem inadequate food intake Etiology GI dysfunction Signs/Symptoms: pt on NPO Malnutrition Alert Is there a minimum of two criteria No selected? Query Text:Check all the applicable criteria. A minimum of two criteria are recommended for diagnosis of either severe or non-severe malnutrition. Malnutrition Related to Morbid Obesity Malnutrition related to morbid obesity No Intervention/Recommendation Comments 1. Monitor NPO status. Recommend clear liquid diet with Ensure Clear TID if diet advanced when medically appropriate 2. Monitor GI, wt, labs and skin integrity 3. F/U as high risk in 2-3 days Expected Outcomes/Goals Expected Outcomes/Goals 1. oral diet initiated in 2-3 days 2. Wt stability, skin to remain intact, labs to approach WNL.
[2018-06-05] MEDS: Morphine Sulfate 2 mg/mL 1mL Syr IVP PRN ×5 (02:24→23:47)
[2018-06-05] MEDS: Sodium Chloride 0.9% 1,000 ML IV SCH ×2 (02:34→02:35)
[2018-06-05] MEDS: Meropenem 500 MG in Sodium Chloride 0.9% 100 ML IV SCH ×3 (04:29→20:30)
[2018-06-05 04:36] LABS: BASOPHILE ABSOLUTE 0.2 Th/cumm (0-0.2); EOSINOPHILE ABSOLUTE 0.2 Th/cmm (0.1-0.4); HEMATOCRIT 33.5 % (41.0-60); HEMOGLOBIN 9.3 gm/dL (12-16); LYMPHOCYTE ABSOLUTE 0.5 Th/cmm (1.5-3.0); MEAN CELL VOLUME 86.6 fl (81-100); MEAN CORPUSCULAR HGB CONC 27.7 pg (28.0-36.0); MEAN PLATELET VOLUME 7.7 fl; MONOCYTE ABSOLUTE 0.2 Th/cmm (0.3-1.0); NEUTROPHILE ABSOLUTE 10.4 Th/cmm (1.8-8.0); PLATELET COUNT 160 Th/cmm (150-400); RED BLOOD COUNT 3.87 Mil/cmm (3.80-5.20); RED CELL DISTRIBUTION WIDTH 13.1 % (11.5-20.0)
[2018-06-05 04:51] LABS: ALB/GLOB RATIO 0.7 (1.0-1.8); ALBUMIN 1.8 gm/dL (3.7-5.3); ALKALINE PHOSPHATASE 52 U/L (34-104); ANION GAP 9.7 (7.0-16.0); BILIRUBIN,TOTAL 0.4 mg/dL (0.3-1.0); BUN - UREA NITROGEN 21 mg/dL (7-25); CALCIUM SERUM 7.6 mg/dL (8.6-10.3); CARBON DIOXIDE 24.4 mEq/L (21.0-31.0); CHLORIDE 108 mEq/L (98-107); CREATININE - SERUM 0.3 mg/dL (0.6-1.2); GLUCOSE 156 mg/dL (70-105); MAGNESIUM 1.8 mg/dL (1.9-2.7); PHOSPHOROUS 2.7 mg/dL (2.5-5.0); POTASSIUM SERUM 4.1 mEq/L (3.5-5.1); SGOT 16 U/L (13-39); SGPT/ALT 11 U/L (7-52); SODIUM SERUM 138 mEq/L (136-145); TOTAL PROTEIN,SERUM 4.3 gm/dL (6.0-8.3)
[2018-06-05 05:17] LABS: WHITE BLOOD COUNT 11.5 Th/cmm (4.8-10.8)
[2018-06-05 05:18] LABS: BAND NEUTROPHILE 0 % (0-10); BASOPHIL 0 % (0-3); EOSINOPHIL 1 % (0-5); LYMPHOCYTE 5 % (20-50); MONOCYTE 4 % (2-10); NEUTROPHILS 90 % (40-80); PLATELET ESTIMATE ADEQUATE (NORMAL)
[2018-06-05] MEDS: INSULIN ASPART SLIDING SCALE 100 UNITS/ML UNIT SUBQ SCH ×5 (06:15→23:47)
[2018-06-05] MEDS: Albuterol/Ipratropium Neb 3 ML AERS HHN SCH ×4 (07:09→18:31)
[2018-06-05] MEDS: Budesonide 0.5 Mg/2 mL Ud HHN SCH ×2 (07:16→18:30)
--- NOTE | 2018-06-05 07:58 | GI Progress Note ---
Subjective - Review of Systems Service Date: 06/05/18 Subjective: GI NOTE EVENTS NOTED. EXTUBATED. Objective - Results Result Diagrams: 06/05/18 04:20 06/05/18 04:20 Recent Labs: Laboratory Last Values WBC 11.5 Th/cmm (4.8-10.8) H D 06/05/18 04:20 Corrected WBC (auto) 3.0 Th/cmm (4.8-10.8) L 05/26/18 04:00 RBC 3.87 Mil/cmm (3.80-5.20) 06/05/18 04:20 Hgb 9.3 gm/dL (12-16) L 06/05/18 04:20 Hct 33.5 % (41.0-60) L 06/05/18 04:20 MCV 86.6 fl (81-100) 06/05/18 04:20 MCH 24.0 pg (27.0-31.0) L 06/05/18 04:20 MCHC Differential 27.7 pg (28.0-36.0) L 06/05/18 04:20 RDW 13.1 % (11.5-20.0) 06/05/18 04:20 Plt Count 160 Th/cmm (150-400) 06/05/18 04:20 MPV 7.7 fl 06/05/18 04:20 Add Manual Diff YES 06/05/18 04:20 Neutrophils % 74.6 % (40.0-80.0) 06/01/18 04:30 Band Neutrophils % 0 % (0-10) 06/05/18 04:20 Lymphocytes % 7.9 % (20.0-50.0) L 06/01/18 04:30 Monocytes % 15.9 % (2.0-10.0) H 06/01/18 04:30 Eosinophils % 1.5 % (0.0-5.0) 06/01/18 04:30 Basophils % 0.1 % (0.0-2.0) 06/01/18 04:30 Neutrophils (Manual) 90 % (40-80) H 06/05/18 04:20 Lymphocytes 5 % (20-50) L 06/05/18 04:20 Monocytes 4 % (2-10) 06/05/18 04:20 Eosinophils 1 % (0-5) 06/05/18 04:20 Basophils 0 % (0-3) 06/05/18 04:20 Platelet Estimate ADEQUATE (NORMAL) 06/05/18 04:20 PT 10.8 SECONDS (9.5-11.5) 05/23/18 04:30 INR 1.04 (0.5-1.4) 05/23/18 04:30 PTT (Actin FS) 27.4 SECONDS (26.0-38.0) 05/23/18 04:30 Specimen Source ARTERIAL 06/04/18 12:06 Sample Site Right Radial 06/04/18 12:06 pH 7.49 (7.35-7.45) H 06/04/18 12:06 pCO2 35.0 mmHg (35.0-45.0) 06/04/18 12:06 pO2 142.0 mmHg (80.0-100.0) H 06/04/18 12:06 HCO3 27.7 mEq/L (20.0-26.0) H 06/04/18 12:06 Base Excess 35.0 mEq/L (-3.0-3.0) H 06/04/18 12:06 O2 Saturation 99.0 % (92.0-100.0) 06/04/18 12:06 Ricky Test Positive 06/04/18 12:06 Vent Rate NA 06/04/18 12:06 Inspired O2 40 06/04/18 12:06 Tidal Volume NA 06/04/18 12:06 PEEP NA 06/04/18 12:06 Pressure (ins/psv/peep) NA 06/04/18 12:06 Critical Value DM 06/04/18 12:06 Sodium 138 mEq/L (136-145) 06/05/18 04:20 Potassium 4.1 mEq/L (3.5-5.1) 06/05/18 04:20 Chloride 108 mEq/L (98-107) H 06/05/18 04:20 Carbon Dioxide 24.4 mEq/L (21.0-31.0) 06/05/18 04:20 Anion Gap 9.7 (7.0-16.0) 06/05/18 04:20 BUN 21 mg/dL (7-25) 06/05/18 04:20 Creatinine 0.3 mg/dL (0.6-1.2) L 06/05/18 04:20 Est GFR ( Amer) TNP 06/05/18 04:20 Est GFR (Non-Af Amer) TNP 06/05/18 04:20 BUN/Creatinine Ratio 70.0 06/05/18 04:20 Glucose 156 mg/dL (70-105) H 06/05/18 04:20 POC Glucose 147 MG/DL (70 - 105) H 06/05/18 00:20 Plasma/Ser Osmolality 259 mOsmol/kg (280-301) L 05/23/18 09:55 Whole Bld Lactic Acid 2.51 mmol/L (0.60-1.99) H* 06/02/18 09:15 Calcium 7.6 mg/dL (8.6-10.3) L 06/05/18 04:20 Phosphorus 2.7 mg/dL (2.5-5.0) 06/05/18 04:20 Magnesium 1.8 mg/dL (1.9-2.7) L 06/05/18 04:20 Total Bilirubin 0.4 mg/dL (0.3-1.0) 06/05/18 04:20 Direct Bilirubin 0.14 mg/dL (0.0-0.2) 05/24/18 07:05 AST 16 U/L (13-39) 06/05/18 04:20 ALT 11 U/L (7-52) 06/05/18 04:20 Alkaline Phosphatase 52 U/L (34-104) 06/05/18 04:20 Ammonia 46 umol/L (16-53) 05/25/18 04:00 Total Protein 4.3 gm/dL (6.0-8.3) L 06/05/18 04:20 Albumin 1.8 gm/dL (3.7-5.3) L 06/05/18 04:20 Globulin 2.5 gm/dL 06/05/18 04:20 Albumin/Globulin Ratio 0.7 (1.0-1.8) L 06/05/18 04:20 Prealbumin 9 mg/dL (9-32) 05/31/18 04:10 Triglycerides 74 mg/dL (<150) 05/31/18 04:10 Cholesterol 118 mg/dL (<200) 06/01/18 04:30 TSH 3.21 uIU/ml (0.34-5.60) 05/22/18 17:34 Urine Source CLEAN C 05/22/18 18:55 Urine Color YELLOW 05/22/18 18:55 Urine Clarity HAZY (CLEAR) 05/22/18 18:55 Urine pH 6.0 (4.6 - 8.0) 05/22/18 18:55 Ur Specific [place] >= 1.030 (1.005-1.030) 05/22/18 18:55 Urine Protein TRACE mg/dL (NEGATIVE) 05/22/18 18:55 Urine Glucose (UA) 100 mg/dL (NEGATIVE) H 05/22/18 18:55 Urine Ketones 40 mg/dL (NEGATIVE) H 05/22/18 18:55 Urine Blood MODERATE (NEGATIVE) H 05/22/18 18:55 Urine Nitrate POSITIVE (NEGATIVE) H 05/22/18 18:55 Urine Bilirubin NEGATIVE (NEGATIVE) 05/22/18 18:55 Urine Urobilinogen 0.2 E.U./dL (0.2 - 1.0) 05/22/18 18:55 Ur Leukocyte Esterase SMALL (NEGATIVE) H 05/22/18 18:55 Urine RBC 0-2 /hpf (0-5) 05/22/18 18:55 Urine WBC 6-10 /hpf (0-5) H 05/22/18 18:55 Ur Epithelial Cells OCCASIONAL /lpf (FEW) 05/22/18 18:55 Urine Bacteria 2+ /hpf (NONE SEEN) H 05/22/18 18:55 Urine Osmolality 583 mOsmol/kg 05/24/18 06:00 Ur Random Sodium 14 mmol/L 05/24/18 06:00 Vancomycin Trough 13.7 ug/mL (5-10) H 05/25/18 08:00 Valproic Acid 29.3 ug/mL (50.0-100.0) L 05/22/18 17:34 Blood Type O NEGATIVE 06/01/18 14:45 Antibody Screen NEGATIVE 06/01/18 14:45 Crossmatch See Detail 06/01/18 14:45 - Physical Exam Vitals and I&O: Vital Signs Temp 98.5 F 06/05/18 04:00 Pulse 90 06/05/18 07:16 Resp 18 06/05/18 07:16 BP 111/54 06/05/18 06:00 Pulse Ox 99 06/05/18 07:16 Intake & Output 06/04/18 06/05/18 06/05/18 18:59 06:59 18:59 Intake Total 3100.323 3712.547 Output Total 2810 Balance 3100.323 902.547 Weight (lbs) 95.254 kg Intake: Intake, IV Amount 3100.323 2522.547 Meropenem 500 mg In 100 200 Sodium Chloride 0.9% 100 ml @ 100 mls/hr IV Q8H [facility] Rx#:[id number] Multivitamin Inj 10 ml 1710.35 879.667 Insulin Human Regular 35 units In Dextrose 70% 500 ml In Amino Acids 8.5% 500 ml In Water, Sterile 700 ml @ 70 mls/hr IV . Q24H [facility] Rx#:[id number] Norepinephrine 4 mg In 182.88 Dextrose 5% 250 ml @ Titrate IV TITR PRN Rx#: [id number] Propofol 1,000 mg In 100 39.973 ml @ Per Protocol IV TITR [facility] Rx#:[id number] Sodium Chloride 0.9% 1, 1000 1260.000 000 ml @ 100 mls/hr IV . Q10H [facility] Rx#:[id number] Vancomycin HCl 1 gm In 250 Sodium Chloride 0.9% 250 ml @ 165 mls/hr IV Q24H [facility] Rx#:[id number] TPN/PPN 840 Other 350 Output: Gastric Drainage 400 Drainage 960 Left Lower Abdomen 520 Right Lower Abdomen 440 Urine 1450 Other: # Bowel Movements 0 Weight Source Bedscale Active Medications: Current Medications Acetaminophen (Tylenol 650mg Supp) 650 mg RC Q4H PRN PRN Reason: PAIN OR TEMP >101 Stop: 07/21/18 22:25 Albuterol/Ipratropium (Duoneb Neb) 3 ml HHN Q4VSTOP [facility] Stop: 07/22/18 18:59 Last Admin: 06/05/18 07:09 Dose: 3 ml Bisacodyl (Dulcolax 10 Mg Supp) 10 mg RC DAILY [facility] Stop: 07/22/18 12:14 Last Admin: 06/04/18 09:45 Dose: Not Given Budesonide (Pulmicort) 0.5 mg HHN BIDRT [facility] Stop: 07/22/18 18:59 Last Admin: 06/05/18 07:16 Dose: 0.5 mg Calamine/Phenol (Calmoseptine) 1 appl TP QID PRN PRN Reason: Skin Irritation Stop: 07/25/18 15:43 Last Admin: 05/26/18 17:23 Dose: 1 appl [place] Oil/[place] Balsam/Trypsin (Venelex) 1 appl TP DAILY [facility] Stop: 07/25/18 15:59 Last Admin: 06/04/18 10:00 Dose: 1 appl Chlorhexidine Gluconate (Peridex) 15 ml MM 0800,1999 [facility] Stop: 07/31/18 19:59 Last Admin: 06/04/18 21:02 Dose: Not Given Divalproex Sodium (Depakote Dr) 250 mg PO BID [facility]; Protocol Stop: 07/22/18 16:59 Last Admin: 06/04/18 17:00 Dose: Not Given Gabapentin (Neurontin) 300 mg PO TID [facility] Stop: 07/22/18 13:59 Last Admin: 06/04/18 21:14 Dose: Not Given Hydromorphone HCl (Dilaudid) 1 mg IVP Q3H PRN PRN Reason: Severe Pain Stop: 07/31/18 13:19 Sodium Chloride (Nacl 0.9%) 1,000 mls @ 100 mls/hr IV .Q10H [facility] Stop: 07/31/18 13:29 Last Infusion: 06/05/18 06:00 Dose: 100 mls/hr Norepinephrine Bitartrate 4 mg (/ Dextrose) 254 mls @ 0 mls/hr IV TITR PRN; Protocol PRN Reason: BP MAINTENANCE (PER PROTOCOL) Stop: 07/31/18 17:54 Last Titration: 06/04/18 19:30 Dose: 2 mcg/min, 7.62 mls/hr Meropenem 500 mg/ Sodium (Chloride) 100 mls @ 100 mls/hr IV Q8H [facility] Stop: 07/31/18 20:59 Last Infusion: 06/05/18 05:29 Dose: Infused Vancomycin HCl 1 gm/ Sodium (Chloride) 250 mls @ 165 mls/hr IV Q24H [facility] Stop: 08/01/18 09:59 Last Infusion: 06/04/18 14:55 Dose: Infused Multivitamins/Minerals 10 ml/Insulin Human Regular 35 units / Dextrose/ Amino Acids/Electrolytes/ Sterile Water 1,710.35 mls @ 70 mls/hr IV .Q24H [facility] Stop: 06/25/18 15:59 Last Infusion: 06/05/18 06:00 Dose: 70 mls/hr Insulin Aspart (Novolog Insulin Sliding Scale) 0 units SUBQ Q6HR [facility]; Protocol Stop: 07/22/18 11:59 Last Admin: 06/05/18 06:15 Dose: 2 units Lactobacillus Rhamnosus (Culturelle 15b) 1 each PO DAILY [facility] Stop: 07/25/18 08:59 Last Admin: 06/04/18 09:46 Dose: Not Given Lorazepam (Ativan) 0.5 mg IVP Q6H PRN PRN Reason: AGITATION Stop: 07/30/18 15:47 Miscellaneous (Probiotic Screen) 1 ea PRN PRN PRN Reason: PROTOCOL Stop: 07/24/18 14:14 Miscellaneous (Vancomycin Iv Per Pharmacy) 1 ea PRN [facility] Stop: 07/31/18 20:44 Miscellaneous (Tpn Per Pharmacy) 1 ea PRN PRN PRN Reason: TPN PER RX Stop: 08/02/18 07:51 Morphine Sulfate (Morphine) 2 mg IVP Q3H PRN PRN Reason: Pain (Severe) Stop: 07/21/18 22:22 Last Admin: 06/05/18 06:47 Dose: 2 mg Ondansetron HCl (Zofran) 4 mg IV Q6H PRN PRN Reason: Nausea / Vomiting Stop: 07/21/18 22:24 Last Admin: 05/25/18 11:11 Dose: 4 mg Pantoprazole Sodium (Protonix) 40 mg IVP QDAC [facility] Stop: 08/02/18 08:59 Last Admin: 06/05/18 06:44 Dose: 40 mg General: No acute distress Neck: Supple Cardiovascular: Regular rate Lungs: Clear to auscultation Abdomen: Soft, Drain, no Distended - Procedures Procedures: Procedures Procedure Code Date EMERGENCY DEPT VISIT 23615 02/03/00 EXCISION OF SMALL INTESTINE, PERC ENDO APPROACH [id number] 05/22/18 EXCISION OF TRANSVERSE COLON, PERC ENDO APPROACH [id number] 05/22/18 IMMOBILIZ/WOUND ATTN NEC 93.59 08/01/01 RELEASE SMALL INTESTINE, OPEN APPROACH [id number] 05/22/18 REPAIR SMALL INTESTINE, PERCUTANEOUS ENDOSCOPIC APPROACH [id number] 05/22/18 RESPIRATORY VENTILATION, 24-96 CONSECUTIVE HOURS [id number] 05/22/18 Assessment/Plan - Problem List Patient Problems: All Active Problems Bowel obstruction (Acute) K56.609 Bowel obstruction (Acute) K56.609 PERIPHERAL TREMORS WITH DIAPHORESIS (Acute) - Assessment Assessment: IMPRESSION: 1. Bowel obstruction large and small - s/p ex lap 06/01/18 with partial resections of small and large intestines, ventral hernia repair. 2. Post op respiratory failure. 3. Sepsis with hypotension, better. RECS: -Post op care as per surgeon. -Abx. -continue TPN. -monitor labs. -vent care as per Pulm. -NGT decompression. -ice chips okay.
[2018-06-05] MEDS: Chlorhexidine Gluconate 0.12% 15mL Mouthwash MM SCH ×2 (08:42→20:01)
[2018-06-05] MEDS: Lactobacillus Rhamnosus GG 15 Billion CFU CAP.SPRINK PO SCH (08:58)
[2018-06-05] MEDS: Venelex 60gm Tube TP SCH (09:03)
[2018-06-05] MEDS ORDERED: Sodium Chloride 0.9% 1,000 ML IV SCH (10:45)
--- NOTE | 2018-06-05 16:08 | Progress Notes ---
DATE: 06/05/2018 PULMONARY PROGRESS NOTE PROBLEM LIST: 1. Status post bowel obstruction with incarcerated small bowel and omentum. 2. Underlying psychological issue. 3. Some mild chronic changes in the bases. 4. Underlying significant recurrent; anxiety. SYMPTOMS: Nil. The patient is awake, but not too much communication, no respiratory distress day after surgery. PHYSICAL EXAMINATION: GENERAL: Not in acute distress. VITAL SIGNS: The patient's recorded vitals: Temperature is 98.2, heart rate is in 90s, blood pressure is 80s systolic, off vasopressor. NECK: Veins not visualized. CHEST: Shows diminished air entry with occasional rhonchi. HEART: Regular. ABDOMEN: Shows surgical scar with drain, otherwise unremarkable. LABORATORY DATA: White count is 11,000, hemoglobin 9.3. Electrolytes are okay on TPN. ASSESSMENT: 1. The patient is clinically stable, improving. Post-surgically with bowel obstruction. 2. Suspect sleep apnea syndrome. PLAN: Suggestions continue current treatment. Long-term acute care is advised, pending family decision and go from there. JOB# [id number]
[2018-06-05] MEDS: TPN 8.5%-70% CUSTOM IV SCH (16:41)
--- NOTE | 2018-06-05 19:59 | Pathology Report ---
[id number] Collection Date: 06/01/2018 Surgeon: Dr. Karol Florez Specimen Description: 1. Small bowel resection. 2. Colon resection. 3. Multiple hernia sacs. Gross Description: Part I: Received in formalin is a 20 cm in length slightly twisted segment of small bowel showing extensive dusky brownish-cordero discoloration throughout the entire specimen except for the 2 cm at the proximal and distal margins. These margins show a more normal salmeron-cordero appearance. Opening the specimen shows areas of thinning of the small bowel wall to 1 mm with dilation to greater than 3.3 cm. Other areas show slight constriction of the small bowel to 2.0 cm with multiple fibrous adhesions seen on the outer surface that produced the slight twisting. There are no mass lesions and no evidence of peroration. [employer] sections are submitted in four cassettes labeled A1 to A4. Cassette A1 shows the proximal and distal margins, cassettes A2 to A4 show the thinned small bowel wall. Gross Description: Part II: Received in formalin is a partial colon resection specimen measuring 45 cm in length with an outer diameter that ranges from 4.0 to greater than 7.0 cm. Multiple fibrous adhesions are seen on the outer surface of the specimen, producing a twisted appearance with salmeron-codrero dusky discoloration seen on the outer surface of the dilated regions. There is also attached abundant yellow fatty tissue ranging from 3.5 to 6.0 cm in greatest dimension. Areas of fibrous adhesions are also seen on this fatty omentum. Opening the specimen shows colon to be filled with abundant dark brown stool with flattening and thinning of the mucosa and bowel wall in the areas of dilation. These thinned areas measure less than 1 mm in thickness and show no evidence for perforation. There are no mass lesions. [employer] sections are submitted in cassettes labeled B1 to B8. Cassette B1 shows the proximal and distal margins, cassettes B2 to B4 show the dilated and thinned colon, cassettes B5 and B6 show the additional non-dilated colon, and cassettes B7 and B8 show the adhesions and omentum. Gross Description: Part III: Received in formalin are four portions of salmeron-yellow fibrofatty tissue ranging from 3.5 to 8.5 cm in greatest dimension. Sectioning shows areas of fibromembranous glistening appearance consistent with hernia sac. These fibromembranous areas ranged from 0.1 to 0.2 cm in thickness. There is abundant attached yellow fatty tissue. The sectioning shows no focal lesions. [employer] sections are submitted in 4 cassettes labeled C1 to C4. Microscopic Description: Part I: The histologic sections show portions of small bowel with the proximal and distal mucosal margins showing relatively intact appearance. The remainder of the specimen shows areas of dilated thin small bowel wall with hemorrhagic and degenerative changes present. There is also acute and chronic inflammation present consisting of increased numbers of neutrophils and lymphocytes. Diffuse mucosal ulceration and inflammation is seen in the most dilated and thinned areas. The outer surface of the specimen shows fibrous adhesions and attached fatty tissue. Microscopic Description: Part II: The histologic sections show colon with dilated thinned wall with mucosal ulceration and associated acute and chronic inflammation consisting of lymphocytes and neutrophils. There are multiple fibrous adhesions connecting fatty omentum to the serosal surface of the colon. The colon mucosa shows areas of acute and chronic inflammation with superficial mucosal ulceration. The proximal and distal margins are relatively unaffected by these changes. Microscopic Description: Part III: The histologic sections show fibrofatty tissue with areas of dense fibromembranous glistening lining consistent with hernia sac. Diagnosis: Part I: 1. Slightly twisted portion of small bowel showing multiple fibrous adhesions with areas of dilated and thinned small bowel wall (partial small bowel resection). 2. There is also diffuse mucosal ulceration with associated acute and chronic inflammation present. Diagnosis: Part II: 1. Twisted segment of colon showing multiple fibrous adhesions producing a dilated and thinned colon wall (partial colon resection). 2. There is also acute and chronic inflammation associated with areas of superficial mucosal ulceration. Diagnosis: Part III: Multiple portions of fibromembranous tissue consistent with hernia sac. [facility]# [id number] [facility]
--- NOTE | 2018-06-05 20:10 | General Progress Note ---
Subjective - Review of Systems Service Date: 06/05/18 Subjective: Patient seen and examined extubated on ice chips Objective - Results Result Diagrams: 06/05/18 04:20 06/05/18 04:20 Recent Labs: Laboratory Last Values WBC 11.5 Th/cmm (4.8-10.8) H D 06/05/18 04:20 Corrected WBC (auto) 3.0 Th/cmm (4.8-10.8) L 05/26/18 04:00 RBC 3.87 Mil/cmm (3.80-5.20) 06/05/18 04:20 Hgb 9.3 gm/dL (12-16) L 06/05/18 04:20 Hct 33.5 % (41.0-60) L 06/05/18 04:20 MCV 86.6 fl (81-100) 06/05/18 04:20 MCH 24.0 pg (27.0-31.0) L 06/05/18 04:20 MCHC Differential 27.7 pg (28.0-36.0) L 06/05/18 04:20 RDW 13.1 % (11.5-20.0) 06/05/18 04:20 Plt Count 160 Th/cmm (150-400) 06/05/18 04:20 MPV 7.7 fl 06/05/18 04:20 Add Manual Diff YES 06/05/18 04:20 Neutrophils % 74.6 % (40.0-80.0) 06/01/18 04:30 Band Neutrophils % 0 % (0-10) 06/05/18 04:20 Lymphocytes % 7.9 % (20.0-50.0) L 06/01/18 04:30 Monocytes % 15.9 % (2.0-10.0) H 06/01/18 04:30 Eosinophils % 1.5 % (0.0-5.0) 06/01/18 04:30 Basophils % 0.1 % (0.0-2.0) 06/01/18 04:30 Neutrophils (Manual) 90 % (40-80) H 06/05/18 04:20 Lymphocytes 5 % (20-50) L 06/05/18 04:20 Monocytes 4 % (2-10) 06/05/18 04:20 Eosinophils 1 % (0-5) 06/05/18 04:20 Basophils 0 % (0-3) 06/05/18 04:20 Platelet Estimate ADEQUATE (NORMAL) 06/05/18 04:20 PT 10.8 SECONDS (9.5-11.5) 05/23/18 04:30 INR 1.04 (0.5-1.4) 05/23/18 04:30 PTT (Actin FS) 27.4 SECONDS (26.0-38.0) 05/23/18 04:30 Specimen Source ARTERIAL 06/04/18 12:06 Sample Site Right Radial 06/04/18 12:06 pH 7.49 (7.35-7.45) H 06/04/18 12:06 pCO2 35.0 mmHg (35.0-45.0) 06/04/18 12:06 pO2 142.0 mmHg (80.0-100.0) H 06/04/18 12:06 HCO3 27.7 mEq/L (20.0-26.0) H 06/04/18 12:06 Base Excess 35.0 mEq/L (-3.0-3.0) H 06/04/18 12:06 O2 Saturation 99.0 % (92.0-100.0) 06/04/18 12:06 Ricky Test Positive 06/04/18 12:06 Vent Rate NA 06/04/18 12:06 Inspired O2 40 06/04/18 12:06 Tidal Volume NA 06/04/18 12:06 PEEP NA 06/04/18 12:06 Pressure (ins/psv/peep) NA 06/04/18 12:06 Critical Value DM 06/04/18 12:06 Sodium 138 mEq/L (136-145) 06/05/18 04:20 Potassium 4.1 mEq/L (3.5-5.1) 06/05/18 04:20 Chloride 108 mEq/L (98-107) H 06/05/18 04:20 Carbon Dioxide 24.4 mEq/L (21.0-31.0) 06/05/18 04:20 Anion Gap 9.7 (7.0-16.0) 06/05/18 04:20 BUN 21 mg/dL (7-25) 06/05/18 04:20 Creatinine 0.3 mg/dL (0.6-1.2) L 06/05/18 04:20 Est GFR ( Amer) TNP 06/05/18 04:20 Est GFR (Non-Af Amer) TNP 06/05/18 04:20 BUN/Creatinine Ratio 70.0 06/05/18 04:20 Glucose 156 mg/dL (70-105) H 06/05/18 04:20 POC Glucose 144 MG/DL (70 - 105) H 06/05/18 17:13 Plasma/Ser Osmolality 259 mOsmol/kg (280-301) L 05/23/18 09:55 Whole Bld Lactic Acid 2.51 mmol/L (0.60-1.99) H* 06/02/18 09:15 Calcium 7.6 mg/dL (8.6-10.3) L 06/05/18 04:20 Phosphorus 2.7 mg/dL (2.5-5.0) 06/05/18 04:20 Magnesium 1.8 mg/dL (1.9-2.7) L 06/05/18 04:20 Total Bilirubin 0.4 mg/dL (0.3-1.0) 06/05/18 04:20 Direct Bilirubin 0.14 mg/dL (0.0-0.2) 05/24/18 07:05 AST 16 U/L (13-39) 06/05/18 04:20 ALT 11 U/L (7-52) 06/05/18 04:20 Alkaline Phosphatase 52 U/L (34-104) 06/05/18 04:20 Ammonia 46 umol/L (16-53) 05/25/18 04:00 Total Protein 4.3 gm/dL (6.0-8.3) L 06/05/18 04:20 Albumin 1.8 gm/dL (3.7-5.3) L 06/05/18 04:20 Globulin 2.5 gm/dL 06/05/18 04:20 Albumin/Globulin Ratio 0.7 (1.0-1.8) L 06/05/18 04:20 Prealbumin 9 mg/dL (9-32) 05/31/18 04:10 Triglycerides 74 mg/dL (<150) 05/31/18 04:10 Cholesterol 118 mg/dL (<200) 06/01/18 04:30 TSH 3.21 uIU/ml (0.34-5.60) 05/22/18 17:34 Urine Source CLEAN C 05/22/18 18:55 Urine Color YELLOW 05/22/18 18:55 Urine Clarity HAZY (CLEAR) 05/22/18 18:55 Urine pH 6.0 (4.6 - 8.0) 05/22/18 18:55 Ur Specific [place] >= 1.030 (1.005-1.030) 05/22/18 18:55 Urine Protein TRACE mg/dL (NEGATIVE) 05/22/18 18:55 Urine Glucose (UA) 100 mg/dL (NEGATIVE) H 05/22/18 18:55 Urine Ketones 40 mg/dL (NEGATIVE) H 05/22/18 18:55 Urine Blood MODERATE (NEGATIVE) H 05/22/18 18:55 Urine Nitrate POSITIVE (NEGATIVE) H 05/22/18 18:55 Urine Bilirubin NEGATIVE (NEGATIVE) 05/22/18 18:55 Urine Urobilinogen 0.2 E.U./dL (0.2 - 1.0) 05/22/18 18:55 Ur Leukocyte Esterase SMALL (NEGATIVE) H 05/22/18 18:55 Urine RBC 0-2 /hpf (0-5) 05/22/18 18:55 Urine WBC 6-10 /hpf (0-5) H 05/22/18 18:55 Ur Epithelial Cells OCCASIONAL /lpf (FEW) 05/22/18 18:55 Urine Bacteria 2+ /hpf (NONE SEEN) H 05/22/18 18:55 Urine Osmolality 583 mOsmol/kg 05/24/18 06:00 Ur Random Sodium 14 mmol/L 05/24/18 06:00 Vancomycin Trough 7.0 ug/mL (5-10) 06/05/18 09:00 Valproic Acid 29.3 ug/mL (50.0-100.0) L 05/22/18 17:34 Blood Type O NEGATIVE 06/01/18 14:45 Antibody Screen NEGATIVE 06/01/18 14:45 Crossmatch See Detail 06/01/18 14:45 - Physical Exam Vitals and I&O: Vital Signs Temp 98.8 F 06/05/18 19:51 Pulse 86 06/05/18 19:51 Resp 19 06/05/18 19:51 BP 95/43 06/05/18 19:51 Pulse Ox 91 06/05/18 19:51 Intake & Output 06/05/18 06/05/18 06/06/18 06:59 18:59 06:59 Intake Total 3712.547 2140.429 Output Total 2810 875 Balance 770.357 0590.429 Weight (lbs) 95.254 kg 92.805 kg Intake: Intake, IV Amount 2522.547 2140.429 Meropenem 500 mg In 200 100 Sodium Chloride 0.9% 100 ml @ 100 mls/hr IV Q8H [facility] Rx#:[id number] Multivitamin Inj 10 ml 879.667 855.166 Insulin Human Regular 35 units In Dextrose 70% 500 ml In Amino Acids 8.5% 500 ml In Water, Sterile 700 ml @ 80 mls/hr IV . [id number] [facility] Rx#:[id number] Norepinephrine 4 mg In 182.88 74.93 Dextrose 5% 250 ml @ Titrate IV TITR PRN Rx#: [id number] Sodium Chloride 0.9% 1, 1260.000 000 ml @ 100 mls/hr IV . Q10H [facility] Rx#:[id number] Oral 0 TPN/PPN 840 Other 350 Output: Gastric Drainage 400 100 Drainage 960 250 Left Lower Abdomen 520 125 Right Lower Abdomen 440 125 Urine 1450 525 Other: # Bowel Movements 0 1 Weight Source Bedscale Bedscale Active Medications: Current Medications Acetaminophen (Tylenol 650mg Supp) 650 mg RC Q4H PRN PRN Reason: PAIN OR TEMP >101 Stop: 07/21/18 22:25 Albuterol/Ipratropium (Duoneb Neb) 3 ml HHN [id number] [facility] Stop: 07/22/18 18:59 Last Admin: 06/05/18 18:31 Dose: 3 ml Bisacodyl (Dulcolax 10 Mg Supp) 10 mg RC DAILY [facility] Stop: 07/22/18 12:14 Last Admin: 06/05/18 08:58 Dose: Not Given Budesonide (Pulmicort) 0.5 mg HHN BIDRT [facility] Stop: 07/22/18 18:59 Last Admin: 06/05/18 18:30 Dose: 0.5 mg Calamine/Phenol (Calmoseptine) 1 appl TP QID PRN PRN Reason: Skin Irritation Stop: 07/25/18 15:43 Last Admin: 05/26/18 17:23 Dose: 1 appl [place] Oil/Malagasy Balsam/Trypsin (Venelex) 1 appl TP DAILY [facility] Stop: 07/25/18 15:59 Last Admin: 06/05/18 09:03 Dose: 1 appl Chlorhexidine Gluconate (Peridex) 15 ml MM 0800,2000 [facility] Stop: 07/31/18 19:59 Last Admin: 06/05/18 20:01 Dose: Not Given Divalproex Sodium (Depakote Dr) 250 mg PO BID [facility]; Protocol Stop: 07/22/18 16:59 Last Admin: 06/05/18 16:37 Dose: Not Given Gabapentin (Neurontin) 300 mg PO TID [facility] Stop: 07/22/18 13:59 Last Admin: 06/05/18 20:03 Dose: Not Given Hydromorphone HCl (Dilaudid) 1 mg IVP Q3H PRN PRN Reason: Severe Pain Stop: 07/31/18 13:19 Norepinephrine Bitartrate 4 mg (/ Dextrose) 254 mls @ 0 mls/hr IV TITR PRN; Protocol PRN Reason: BP MAINTENANCE (PER PROTOCOL) Stop: 07/31/18 17:54 Last Titration: 06/05/18 18:14 Dose: 0 mcg/min, 0 mls/hr Meropenem 500 mg/ Sodium (Chloride) 100 mls @ 100 mls/hr IV Q8H [facility] Stop: 07/31/18 20:59 Last Infusion: 06/05/18 18:13 Dose: Infused Multivitamins/Minerals 10 ml/Insulin Human Regular 35 units / Dextrose/ Amino Acids/Electrolytes/ Sterile Water 1,710.35 mls @ 80 mls/hr IV .[id number] [facility] Stop: 06/25/18 15:59 Last Infusion: 06/05/18 18:13 Dose: 80 mls/hr Vancomycin HCl 1.25 gm/ Sodium (Chloride) 250 mls @ 165 mls/hr IV Q24H [facility] Stop: 08/05/18 09:59 Insulin Aspart (Novolog Insulin Sliding Scale) 0 units SUBQ Q6HR [facility]; Protocol Stop: 07/22/18 11:59 Last Admin: 06/05/18 18:05 Dose: Not Given Lactobacillus Rhamnosus (Culturelle 15b) 1 each PO DAILY [facility] Stop: 07/25/18 08:59 Last Admin: 06/05/18 08:58 Dose: Not Given Lorazepam (Ativan) 0.5 mg IVP Q6H PRN PRN Reason: AGITATION Stop: 07/30/18 15:47 Last Admin: 06/05/18 08:42 Dose: 0.5 mg Miscellaneous (Probiotic Screen) 1 ea PRN PRN PRN Reason: PROTOCOL Stop: 07/24/18 14:14 Miscellaneous (Vancomycin Iv Per Pharmacy) 1 ea MC PRN MARIIA Stop: 07/31/18 20:44 Miscellaneous (Tpn Per Pharmacy) 1 ea PRN PRN PRN Reason: TPN PER RX Stop: 08/02/18 07:51 Morphine Sulfate (Morphine) 2 mg IVP Q3H PRN PRN Reason: Pain (Severe) Stop: 07/21/18 22:22 Last Admin: 06/05/18 16:55 Dose: 2 mg Ondansetron HCl (Zofran) 4 mg IV Q6H PRN PRN Reason: Nausea / Vomiting Stop: 07/21/18 22:24 Last Admin: 05/25/18 11:11 Dose: 4 mg Pantoprazole Sodium (Protonix) 40 mg IVP QDAC [facility] Stop: 08/02/18 08:59 Last Admin: 06/05/18 06:44 Dose: 40 mg General: No acute distress Neck: Supple Cardiovascular: Regular rate Lungs: Clear to auscultation Abdomen: Soft, Drain, no Distended - Procedures Procedures: Procedures Procedure Code Date EMERGENCY DEPT VISIT 49786 02/03/00 EXCISION OF SMALL INTESTINE, PERC ENDO APPROACH [id number] 05/22/18 EXCISION OF TRANSVERSE COLON, PERC ENDO APPROACH [id number] 05/22/18 IMMOBILIZ/WOUND ATTN NEC 93.59 08/01/01 RELEASE SMALL INTESTINE, OPEN APPROACH [id number] 05/22/18 REPAIR SMALL INTESTINE, PERCUTANEOUS ENDOSCOPIC APPROACH [id number] 05/22/18 RESPIRATORY VENTILATION, 24-96 CONSECUTIVE HOURS [id number] 05/22/18 Assessment/Plan - Problem List Patient Problems: All Active Problems Bowel obstruction (Acute) K56.609 Bowel obstruction (Acute) K56.609 PERIPHERAL TREMORS WITH DIAPHORESIS (Acute) - Assessment Assessment: Small bowel obstruction s/p EXP LAP Incarcerated vental herania s/p repair Post op respiratory failure Pnemonia Septic shock - Plan Plan: Titrate vasopressor IV fluids TPN Broad sprectum antibiotics Monitor I/O Pain control Post op care Monitor lab and vitals DVT prophylaxis Nutritional Asmnt/Malnutr-PDOC - Dietary Evaluation Malnutrition Findings (Please click <Entered> for more info): Nutritional Asmnt/Malnutrition Start: 05/23/18 16: 41 Text: Status: Complete Freq: Protocol: Document 05/23/18 16:41 LCHENG (Rec: 05/23/18 16:54 LCHENG [id number]) Nutritional Asmnt/Malnutrition Patient General Information Nutritional Screening High Risk Consult Diagnosis bowel obstruction Pertinent Medical Hx/Surgical Hx HTN, dyslipidemia, depression, anxiety, impulse disorder Subjective Information Consult received for elevated glucose 249. pt admitted for abdominal pain. Pt seen resting in bed at time of visit. Pt is NPO, NGT on suction. Current Diet Order/ Nutrition Support NPO Pertinent Medications novolot, piperacillin, zofran, piperacillin, nacl Pertinent Labs 05/23 Na 120, Cl 89, Cr 0.5, glucsose 241, alb 3.4 Nutritional Hx/Data Height 1.63 m Height (Calculated Centimeters) 162.6 Current Weight (lbs) 77.111 kg Weight (Calculated Kilograms) 77.1 Weight (Calculated Grams) 65795.7 [place] Body Weight 120 Body Mass Index (BMI) 29.2 Weight Status Overweight GI Symptoms GI Symptoms None Last BM not indicated Difficult in: None Skin Integrity/Comment: ecchymosis Current %PO Negligible < 25% Estimated Nutritional Goals BEE in Kcals: Using Current wt Calories/Kcals/Kg 23-27 Kcals Calculated Protein: Using Current wt Protein g/k.8-1 Protein Calculated 62-77 Fluid: ml 5126-4505 Nutritional Problem 2. Problem Problem altered nutrition related labs Etiology hyperglycemia Signs/Symptoms: glucose 241-249 1. Problem Problem inadequate food intake Etiology GI dysfunction Signs/Symptoms: pt on NPO Malnutrition Alert Is there a minimum of two criteria No selected? Query Text:Check all the applicable criteria. A minimum of two criteria are recommended for diagnosis of either severe or non-severe malnutrition. Malnutrition Related to Morbid Obesity Malnutrition related to morbid obesity No Intervention/Recommendation Comments 1. Monitor NPO status. Recommend clear liquid diet with Ensure Clear TID if diet advanced when medically appropriate 2. Monitor GI, wt, labs and skin integrity 3. F/U as high risk in 2-3 days Expected Outcomes/Goals Expected Outcomes/Goals 1. oral diet initiated in 2-3 days 2. Wt stability, skin to remain intact, labs to approach WNL.
[2018-06-06] MEDS: Morphine Sulfate 2 mg/mL 1mL Syr IVP PRN (04:40)
[2018-06-06] MEDS: Meropenem 500 MG in Sodium Chloride 0.9% 100 ML IV SCH ×3 (04:57→20:48)
[2018-06-06 05:06] LABS: HEMATOCRIT 32.1 % (41.0-60); HEMOGLOBIN 10.6 gm/dL (12-16); MEAN CELL VOLUME 86.7 fl (81-100); MEAN CORPUSCULAR HEMOGLOBIN 28.5 pg (27.0-31.0); MEAN CORPUSCULAR HGB CONC 32.9 pg (28.0-36.0); MEAN PLATELET VOLUME 7.7 fl; PLATELET COUNT 198 Th/cmm (150-400); RED CELL DISTRIBUTION WIDTH 13.3 % (11.5-20.0); WHITE BLOOD COUNT 13.9 Th/cmm (4.8-10.8)
[2018-06-06 05:52] LABS: ALB/GLOB RATIO 0.6 (1.0-1.8); ALBUMIN 1.7 gm/dL (3.7-5.3); ALKALINE PHOSPHATASE 60 U/L (34-104); BILIRUBIN,TOTAL 0.4 mg/dL (0.3-1.0); BUN - UREA NITROGEN 23 mg/dL (7-25); CALCIUM SERUM 7.6 mg/dL (8.6-10.3); CHLORIDE 107 mEq/L (98-107); CREATININE - SERUM 0.3 mg/dL (0.6-1.2); GLUCOSE 121 mg/dL (70-105); POTASSIUM SERUM 4.6 mEq/L (3.5-5.1); SGOT 16 U/L (13-39); SGPT/ALT 11 U/L (7-52); SODIUM SERUM 139 mEq/L (136-145); TOTAL PROTEIN,SERUM 4.4 gm/dL (6.0-8.3)
[2018-06-06] MEDS: INSULIN ASPART SLIDING SCALE 100 UNITS/ML UNIT SUBQ SCH ×3 (06:00→17:54)
[2018-06-06 06:03] LABS: BAND NEUTROPHILE 2 % (0-10); LYMPHOCYTE 6 % (20-50); MONOCYTE 5 % (2-10); NEUTROPHILS 87 % (40-80); PLATELET ESTIMATE ADEQUATE (NORMAL)
[2018-06-06 06:06] LABS: ANION GAP 10.5 (7.0-16.0); CARBON DIOXIDE 26.1 mEq/L (21.0-31.0)
[2018-06-06] MEDS: Albuterol/Ipratropium Neb 3 ML AERS HHN SCH ×4 (06:34→19:38)
[2018-06-06 06:36] LABS: PHOSPHOROUS 3.1 mg/dL (2.5-5.0)
[2018-06-06] MEDS: Budesonide 0.5 Mg/2 mL Ud HHN SCH ×2 (06:47→19:38)
[2018-06-06] MEDS: Lactobacillus Rhamnosus GG 15 Billion CFU CAP.SPRINK PO SCH (09:10)
[2018-06-06] MEDS: Venelex 60gm Tube TP SCH (09:15)
[2018-06-06 09:28] LABS: CHOLESTEROL 77 mg/dL (<200); TRIGLYCERIDES 63 mg/dL (<150)
[2018-06-06] MEDS: HYDROmorphone 1 mg/mL 1mL Syr IVP PRN (12:36)
--- NOTE | 2018-06-06 12:43 | GI Progress Note ---
Subjective - Review of Systems Service Date: 06/06/18 Subjective: GI NOTE EVENTS NOTED. MINIMAL NG OUTPT. HAVING BM'S. Objective - Results Result Diagrams: 06/06/18 04:10 06/06/18 04:10 Recent Labs: Laboratory Last Values WBC 13.9 Th/cmm (4.8-10.8) H D 06/06/18 04:10 Corrected WBC (auto) 3.0 Th/cmm (4.8-10.8) L 05/26/18 04:00 RBC 3.70 Mil/cmm (3.80-5.20) L 06/06/18 04:10 Hgb 10.6 gm/dL (12-16) L 06/06/18 04:10 Hct 32.1 % (41.0-60) L 06/06/18 04:10 MCV 86.7 fl (81-100) 06/06/18 04:10 MCH 28.5 pg (27.0-31.0) 06/06/18 04:10 MCHC Differential 32.9 pg (28.0-36.0) 06/06/18 04:10 RDW 13.3 % (11.5-20.0) 06/06/18 04:10 Plt Count 198 Th/cmm (150-400) D 06/06/18 04:10 MPV 7.7 fl 06/06/18 04:10 Add Manual Diff YES 06/06/18 04:10 Neutrophils % 74.6 % (40.0-80.0) 06/01/18 04:30 Band Neutrophils % 2 % (0-10) 06/06/18 04:10 Lymphocytes % 7.9 % (20.0-50.0) L 06/01/18 04:30 Monocytes % 15.9 % (2.0-10.0) H 06/01/18 04:30 Eosinophils % 1.5 % (0.0-5.0) 06/01/18 04:30 Basophils % 0.1 % (0.0-2.0) 06/01/18 04:30 Neutrophils (Manual) 87 % (40-80) H 06/06/18 04:10 Lymphocytes 6 % (20-50) L 06/06/18 04:10 Monocytes 5 % (2-10) 06/06/18 04:10 Eosinophils 1 % (0-5) 06/05/18 04:20 Basophils 0 % (0-3) 06/05/18 04:20 Platelet Estimate ADEQUATE (NORMAL) 06/06/18 04:10 PT 10.8 SECONDS (9.5-11.5) 05/23/18 04:30 INR 1.04 (0.5-1.4) 05/23/18 04:30 PTT (Actin FS) 27.4 SECONDS (26.0-38.0) 05/23/18 04:30 Specimen Source ARTERIAL 06/04/18 12:06 Sample Site Right Radial 06/04/18 12:06 pH 7.49 (7.35-7.45) H 06/04/18 12:06 pCO2 35.0 mmHg (35.0-45.0) 06/04/18 12:06 pO2 142.0 mmHg (80.0-100.0) H 06/04/18 12:06 HCO3 27.7 mEq/L (20.0-26.0) H 06/04/18 12:06 Base Excess 35.0 mEq/L (-3.0-3.0) H 06/04/18 12:06 O2 Saturation 99.0 % (92.0-100.0) 06/04/18 12:06 Ricky Test Positive 06/04/18 12:06 Vent Rate NA 06/04/18 12:06 Inspired O2 40 06/04/18 12:06 Tidal Volume NA 06/04/18 12:06 PEEP NA 06/04/18 12:06 Pressure (ins/psv/peep) NA 06/04/18 12:06 Critical Value DM 06/04/18 12:06 Sodium 139 mEq/L (136-145) 06/06/18 04:10 Potassium 4.6 mEq/L (3.5-5.1) 06/06/18 04:10 Chloride 107 mEq/L (98-107) 06/06/18 04:10 Carbon Dioxide 26.1 mEq/L (21.0-31.0) 06/06/18 04:10 Anion Gap 10.5 (7.0-16.0) 06/06/18 04:10 BUN 23 mg/dL (7-25) 06/06/18 04:10 Creatinine 0.3 mg/dL (0.6-1.2) L 06/06/18 04:10 Est GFR ( Amer) TNP 06/06/18 04:10 Est GFR (Non-Af Amer) TNP 06/06/18 04:10 BUN/Creatinine Ratio 76.7 06/06/18 04:10 Glucose 121 mg/dL (70-105) H 06/06/18 04:10 POC Glucose 139 MG/DL (70 - 105) H 06/06/18 12:02 Plasma/Ser Osmolality 259 mOsmol/kg (280-301) L 05/23/18 09:55 Whole Bld Lactic Acid 2.51 mmol/L (0.60-1.99) H* 06/02/18 09:15 Calcium 7.6 mg/dL (8.6-10.3) L 06/06/18 04:10 Phosphorus 3.1 mg/dL (2.5-5.0) 06/06/18 04:10 Magnesium 2.0 mg/dL (1.9-2.7) 06/06/18 04:10 Total Bilirubin 0.4 mg/dL (0.3-1.0) 06/06/18 04:10 Direct Bilirubin 0.14 mg/dL (0.0-0.2) 05/24/18 07:05 AST 16 U/L (13-39) 06/06/18 04:10 ALT 11 U/L (7-52) 06/06/18 04:10 Alkaline Phosphatase 60 U/L (34-104) 06/06/18 04:10 Ammonia 46 umol/L (16-53) 05/25/18 04:00 Total Protein 4.4 gm/dL (6.0-8.3) L 06/06/18 04:10 Albumin 1.7 gm/dL (3.7-5.3) L 06/06/18 04:10 Globulin 2.7 gm/dL 06/06/18 04:10 Albumin/Globulin Ratio 0.6 (1.0-1.8) L 06/06/18 04:10 Prealbumin 9 mg/dL (9-32) 05/31/18 04:10 Triglycerides 63 mg/dL (<150) 06/06/18 04:10 Cholesterol 77 mg/dL (<200) 06/06/18 04:10 TSH 3.21 uIU/ml (0.34-5.60) 05/22/18 17:34 Urine Source CLEAN C 05/22/18 18:55 Urine Color YELLOW 05/22/18 18:55 Urine Clarity HAZY (CLEAR) 05/22/18 18:55 Urine pH 6.0 (4.6 - 8.0) 05/22/18 18:55 Ur Specific [place] >= 1.030 (1.005-1.030) 05/22/18 18:55 Urine Protein TRACE mg/dL (NEGATIVE) 05/22/18 18:55 Urine Glucose (UA) 100 mg/dL (NEGATIVE) H 05/22/18 18:55 Urine Ketones 40 mg/dL (NEGATIVE) H 05/22/18 18:55 Urine Blood MODERATE (NEGATIVE) H 05/22/18 18:55 Urine Nitrate POSITIVE (NEGATIVE) H 05/22/18 18:55 Urine Bilirubin NEGATIVE (NEGATIVE) 05/22/18 18:55 Urine Urobilinogen 0.2 E.U./dL (0.2 - 1.0) 05/22/18 18:55 Ur Leukocyte Esterase SMALL (NEGATIVE) H 05/22/18 18:55 Urine RBC 0-2 /hpf (0-5) 05/22/18 18:55 Urine WBC 6-10 /hpf (0-5) H 05/22/18 18:55 Ur Epithelial Cells OCCASIONAL /lpf (FEW) 05/22/18 18:55 Urine Bacteria 2+ /hpf (NONE SEEN) H 05/22/18 18:55 Urine Osmolality 583 mOsmol/kg 05/24/18 06:00 Ur Random Sodium 14 mmol/L 05/24/18 06:00 Vancomycin Trough 7.0 ug/mL (5-10) 06/05/18 09:00 Valproic Acid 29.3 ug/mL (50.0-100.0) L 05/22/18 17:34 Blood Type O NEGATIVE 06/01/18 14:45 Antibody Screen NEGATIVE 06/01/18 14:45 Crossmatch See Detail 06/01/18 14:45 - Physical Exam Vitals and I&O: Vital Signs Temp 98.6 F 06/06/18 08:00 Pulse 103 06/06/18 11:14 Resp 19 06/06/18 11:14 BP 129/53 06/06/18 08:00 Pulse Ox 92 06/06/18 11:14 Intake & Output 06/05/18 06/06/18 06/06/18 18:59 06:59 18:59 Intake Total 2140.429 1215.057 Output Total 875 1010 Balance 1265.429 205.057 Weight (lbs) 92.805 kg 93.44 kg Intake: Intake, IV Amount 2140.429 1215.057 Meropenem 500 mg In 100 200 Sodium Chloride 0.9% 100 ml @ 100 mls/hr IV Q8H [facility] Rx#:[id number] Multivitamin Inj 10 ml 855.166 942.667 Insulin Human Regular 35 units In Dextrose 70% 500 ml In Amino Acids 8.5% 500 ml In Water, Sterile 700 ml @ 80 mls/hr IV . [id number] [facility] Rx#:[id number] Norepinephrine 4 mg In 74.93 72.390 Dextrose 5% 250 ml @ Titrate IV TITR PRN Rx#: [id number] Oral 0 0 Output: Gastric Drainage 100 50 Drainage 250 360 Left Lower Abdomen 125 260 Right Lower Abdomen 125 100 Urine 525 600 Other: # Bowel Movements 1 0 Weight Source Bedscale Bedscale Active Medications: Current Medications Acetaminophen (Tylenol 650mg Supp) 650 mg RC Q4H PRN PRN Reason: PAIN OR TEMP >101 Stop: 07/21/18 22:25 Albuterol/Ipratropium (Duoneb Neb) 3 ml HHN [id number] [facility] Stop: 07/22/18 18:59 Last Admin: 06/06/18 11:14 Dose: 3 ml Bisacodyl (Dulcolax 10 Mg Supp) 10 mg RC DAILY [facility] Stop: 07/22/18 12:14 Last Admin: 06/06/18 09:14 Dose: 10 mg Budesonide (Pulmicort) 0.5 mg HHN BIDRT [facility] Stop: 07/22/18 18:59 Last Admin: 06/06/18 06:47 Dose: 0.5 mg Calamine/Phenol (Calmoseptine) 1 appl TP QID PRN PRN Reason: Skin Irritation Stop: 07/25/18 15:43 Last Admin: 05/26/18 17:23 Dose: 1 appl [place] Oil/[place]iqu[place] Balsam/Trypsin (Venelex) 1 appl TP DAILY [facility] Stop: 07/25/18 15:59 Last Admin: 06/06/18 09:15 Dose: 1 appl Divalproex Sodium (Depakote Dr) 250 mg PO BID [facility]; Protocol Stop: 07/22/18 16:59 Last Admin: 06/06/18 09:10 Dose: Not Given Gabapentin (Neurontin) 300 mg PO TID [facility] Stop: 07/22/18 13:59 Last Admin: 06/06/18 09:10 Dose: Not Given Hydromorphone HCl (Dilaudid) 1 mg IVP Q3H PRN PRN Reason: Severe Pain Stop: 07/31/18 13:19 Last Admin: 06/06/18 12:36 Dose: 1 mg Norepinephrine Bitartrate 4 mg (/ Dextrose) 254 mls @ 0 mls/hr IV TITR PRN; Protocol PRN Reason: BP MAINTENANCE (PER PROTOCOL) Stop: 07/31/18 17:54 Last Titration: 06/06/18 05:00 Dose: 0 mcg/min, 0 mls/hr Meropenem 500 mg/ Sodium (Chloride) 100 mls @ 100 mls/hr IV Q8H [facility] Stop: 07/31/18 20:59 Last Admin: 06/06/18 12:40 Dose: 100 mls/hr Multivitamins/Minerals 10 ml/Insulin Human Regular 35 units / Dextrose/ Amino Acids/Electrolytes/ Sterile Water 1,710.35 mls @ 80 mls/hr IV .[id number] [facility] Stop: 06/25/18 15:59 Last Infusion: 06/06/18 06:00 Dose: 80 mls/hr Vancomycin HCl 1.25 gm/ Sodium (Chloride) 250 mls @ 165 mls/hr IV Q24H [facility] Stop: 08/05/18 09:59 Last Admin: 06/06/18 10:22 Dose: 165 mls/hr Insulin Aspart (Novolog Insulin Sliding Scale) 0 units SUBQ Q6HR [facility]; Protocol Stop: 07/22/18 11:59 Last Admin: 06/06/18 12:41 Dose: Not Given Lactobacillus Rhamnosus (Culturelle 15b) 1 each PO DAILY [facility] Stop: 07/25/18 08:59 Last Admin: 06/06/18 09:10 Dose: Not Given Lorazepam (Ativan) 0.5 mg IVP Q6H PRN PRN Reason: AGITATION Stop: 07/30/18 15:47 Last Admin: 06/06/18 02:05 Dose: 0.5 mg Miscellaneous (Probiotic Screen) 1 ea PRN PRN PRN Reason: PROTOCOL Stop: 07/24/18 14:14 Miscellaneous (Vancomycin Iv Per Pharmacy) 1 ea [facility] PRN [facility] Stop: 07/31/18 20:44 Miscellaneous (Tpn Per Pharmacy) 1 ea PRN PRN PRN Reason: TPN PER RX Stop: 08/02/18 07:51 Morphine Sulfate (Morphine) 2 mg IVP Q3H PRN PRN Reason: Pain (Severe) Stop: 07/21/18 22:22 Last Admin: 06/06/18 04:40 Dose: 2 mg Ondansetron HCl (Zofran) 4 mg IV Q6H PRN PRN Reason: Nausea / Vomiting Stop: 07/21/18 22:24 Last Admin: 05/25/18 11:11 Dose: 4 mg Pantoprazole Sodium (Protonix) 40 mg IVP QDAC [facility] Stop: 08/02/18 08:59 Last Admin: 06/06/18 06:38 Dose: 40 mg General: No acute distress HEENT: Other (NGT) Neck: Supple Cardiovascular: Regular rate Lungs: Clear to auscultation Abdomen: Soft, Drain, no Distended - Procedures Procedures: Procedures Procedure Code Date EMERGENCY DEPT VISIT 53460 02/03/00 EXCISION OF SMALL INTESTINE, PERC ENDO APPROACH [id number] 05/22/18 EXCISION OF TRANSVERSE COLON, PERC ENDO APPROACH [id number] 05/22/18 IMMOBILIZ/WOUND ATTN NEC 93.59 08/01/01 RELEASE SMALL INTESTINE, OPEN APPROACH [id number] 05/22/18 REPAIR SMALL INTESTINE, PERCUTANEOUS ENDOSCOPIC APPROACH [id number] 05/22/18 RESPIRATORY VENTILATION, 24-96 CONSECUTIVE HOURS [id number] 05/22/18 Assessment/Plan - Problem List Patient Problems: All Active Problems Bowel obstruction (Acute) K56.609 Bowel obstruction (Acute) K56.609 PERIPHERAL TREMORS WITH DIAPHORESIS (Acute) - Assessment Assessment: IMPRESSION: 1. Bowel obstruction large and small - s/p ex lap 06/01/18 with partial resections of small and large intestines, ventral hernia repair. 2. Post op respiratory failure. 3. Sepsis with hypotension, better. RECS: -Post op care as per surgeon. -Abx. -continue TPN. -monitor labs. -vent care as per Pulm. -NGT to be clamped; may give meds per NGT. Consider removal tomorrow with initiation of clear liquids if okay with surgeon. -ice chips okay.
[2018-06-06] MEDS: TPN 8.5%-70% CUSTOM IV SCH (13:47)
--- NOTE | 2018-06-06 19:21 | Progress Notes ---
DATE: 05/22/2018 PULMONARY/CRITICAL CARE PROGRESS NOTE PROBLEM LIST: 1. Status post abdominal surgery for obstruction. 2. Significant deconditioned disability. 3. Underlying history of psychosis. 4. Recurrent hypotension requiring vasopressors. SYMPTOMS: The patient is awake, noncommunicative, not too much distress. The patient had a Levophed to be restarted according to nursing staff. VITAL SIGNS: Currently temperature is 98.4, pulse is regular about 90-140, blood pressure earlier was 84/39, now is 112/73, saturation is 94 on 5 liters per minute. NECK: Veins not visualized. CHEST: Shows occasional secretory noise with diminished air entry. HEART: Regular. ABDOMEN: Slightly dressing with tenderness. LABORATORY DATA: White count is 13.9 and the patient's calcium is 7.6, albumin is 1.7. IMPRESSION: The patient clinically appears to be stable respiratory mcqueen, except for continued to have hypotension, suspect obstructive sleep apnea syndrome. The pain medicine make it more worse. PLANS AND SUGGESTIONS: We will continue current plan and care. Discussed with the nursing staff and pulmonary mcqueen should be okay for BiPAP at nighttime and follow up with chest x-ray and go from there. JOB# [id number]
[2018-06-06] MEDS ORDERED: Albumin 25% 12.5gm/50mL 12.5 GM/50 ML BTL IV ONE (20:00)
[2018-06-07] MEDS: INSULIN ASPART SLIDING SCALE 100 UNITS/ML UNIT SUBQ SCH ×5 (01:00→23:22)
[2018-06-07] MEDS: HYDROmorphone 1 mg/mL 1mL Syr IVP PRN ×2 (01:11→23:19)
--- NOTE | 2018-06-07 02:28 | Infectious Disease Prog Note ---
Infectious Disease Subjective - Review of Systems Service Date: 06/06/18 Subjective: cc peritonitis.pn uti hip- cx noted on iv bax d/w staff ros no fevr o/e vss chest veicular abd soft ext pulse Infectious Disease Objective - Results Result Diagrams: 06/06/18 04:10 06/06/18 04:10 Recent Labs: Laboratory Last Values WBC 13.9 Th/cmm (4.8-10.8) H D 06/06/18 04:10 Corrected WBC (auto) 3.0 Th/cmm (4.8-10.8) L 05/26/18 04:00 RBC 3.70 Mil/cmm (3.80-5.20) L 06/06/18 04:10 Hgb 10.6 gm/dL (12-16) L 06/06/18 04:10 Hct 32.1 % (41.0-60) L 06/06/18 04:10 MCV 86.7 fl (81-100) 06/06/18 04:10 MCH 28.5 pg (27.0-31.0) 06/06/18 04:10 MCHC Differential 32.9 pg (28.0-36.0) 06/06/18 04:10 RDW 13.3 % (11.5-20.0) 06/06/18 04:10 Plt Count 198 Th/cmm (150-400) D 06/06/18 04:10 MPV 7.7 fl 06/06/18 04:10 Add Manual Diff YES 06/06/18 04:10 Neutrophils % 74.6 % (40.0-80.0) 06/01/18 04:30 Band Neutrophils % 2 % (0-10) 06/06/18 04:10 Lymphocytes % 7.9 % (20.0-50.0) L 06/01/18 04:30 Monocytes % 15.9 % (2.0-10.0) H 06/01/18 04:30 Eosinophils % 1.5 % (0.0-5.0) 06/01/18 04:30 Basophils % 0.1 % (0.0-2.0) 06/01/18 04:30 Neutrophils (Manual) 87 % (40-80) H 06/06/18 04:10 Lymphocytes 6 % (20-50) L 06/06/18 04:10 Monocytes 5 % (2-10) 06/06/18 04:10 Eosinophils 1 % (0-5) 06/05/18 04:20 Basophils 0 % (0-3) 06/05/18 04:20 Platelet Estimate ADEQUATE (NORMAL) 06/06/18 04:10 PT 10.8 SECONDS (9.5-11.5) 05/23/18 04:30 INR 1.04 (0.5-1.4) 05/23/18 04:30 PTT (Actin FS) 27.4 SECONDS (26.0-38.0) 05/23/18 04:30 Specimen Source ARTERIAL 06/04/18 12:06 Sample Site Right Radial 06/04/18 12:06 pH 7.49 (7.35-7.45) H 06/04/18 12:06 pCO2 35.0 mmHg (35.0-45.0) 06/04/18 12:06 pO2 142.0 mmHg (80.0-100.0) H 06/04/18 12:06 HCO3 27.7 mEq/L (20.0-26.0) H 06/04/18 12:06 Base Excess 35.0 mEq/L (-3.0-3.0) H 06/04/18 12:06 O2 Saturation 99.0 % (92.0-100.0) 06/04/18 12:06 Ricky Test Positive 06/04/18 12:06 Vent Rate NA 06/04/18 12:06 Inspired O2 40 06/04/18 12:06 Tidal Volume NA 06/04/18 12:06 PEEP NA 06/04/18 12:06 Pressure (ins/psv/peep) NA 06/04/18 12:06 Critical Value DM 06/04/18 12:06 Sodium 139 mEq/L (136-145) 06/06/18 04:10 Potassium 4.6 mEq/L (3.5-5.1) 06/06/18 04:10 Chloride 107 mEq/L (98-107) 06/06/18 04:10 Carbon Dioxide 26.1 mEq/L (21.0-31.0) 06/06/18 04:10 Anion Gap 10.5 (7.0-16.0) 06/06/18 04:10 BUN 23 mg/dL (7-25) 06/06/18 04:10 Creatinine 0.3 mg/dL (0.6-1.2) L 06/06/18 04:10 Est GFR ( Amer) TNP 06/06/18 04:10 Est GFR (Non-Af Amer) TNP 06/06/18 04:10 BUN/Creatinine Ratio 76.7 06/06/18 04:10 Glucose 121 mg/dL (70-105) H 06/06/18 04:10 POC Glucose 175 MG/DL (70 - 105) H 06/07/18 01:06 Plasma/Ser Osmolality 259 mOsmol/kg (280-301) L 05/23/18 09:55 Whole Bld Lactic Acid 2.51 mmol/L (0.60-1.99) H* 06/02/18 09:15 Calcium 7.6 mg/dL (8.6-10.3) L 06/06/18 04:10 Phosphorus 3.1 mg/dL (2.5-5.0) 06/06/18 04:10 Magnesium 2.0 mg/dL (1.9-2.7) 06/06/18 04:10 Total Bilirubin 0.4 mg/dL (0.3-1.0) 06/06/18 04:10 Direct Bilirubin 0.14 mg/dL (0.0-0.2) 05/24/18 07:05 AST 16 U/L (13-39) 06/06/18 04:10 ALT 11 U/L (7-52) 06/06/18 04:10 Alkaline Phosphatase 60 U/L (34-104) 06/06/18 04:10 Ammonia 46 umol/L (16-53) 05/25/18 04:00 Total Protein 4.4 gm/dL (6.0-8.3) L 06/06/18 04:10 Albumin 1.7 gm/dL (3.7-5.3) L 06/06/18 04:10 Globulin 2.7 gm/dL 06/06/18 04:10 Albumin/Globulin Ratio 0.6 (1.0-1.8) L 06/06/18 04:10 Prealbumin 9 mg/dL (9-32) 05/31/18 04:10 Triglycerides 63 mg/dL (<150) 06/06/18 04:10 Cholesterol 77 mg/dL (<200) 06/06/18 04:10 TSH 3.21 uIU/ml (0.34-5.60) 05/22/18 17:34 Urine Source CLEAN C 05/22/18 18:55 Urine Color YELLOW 05/22/18 18:55 Urine Clarity HAZY (CLEAR) 05/22/18 18:55 Urine pH 6.0 (4.6 - 8.0) 05/22/18 18:55 Ur Specific [place] >= 1.030 (1.005-1.030) 05/22/18 18:55 Urine Protein TRACE mg/dL (NEGATIVE) 05/22/18 18:55 Urine Glucose (UA) 100 mg/dL (NEGATIVE) H 05/22/18 18:55 Urine Ketones 40 mg/dL (NEGATIVE) H 05/22/18 18:55 Urine Blood MODERATE (NEGATIVE) H 05/22/18 18:55 Urine Nitrate POSITIVE (NEGATIVE) H 05/22/18 18:55 Urine Bilirubin NEGATIVE (NEGATIVE) 05/22/18 18:55 Urine Urobilinogen 0.2 E.U./dL (0.2 - 1.0) 05/22/18 18:55 Ur Leukocyte Esterase SMALL (NEGATIVE) H 05/22/18 18:55 Urine RBC 0-2 /hpf (0-5) 05/22/18 18:55 Urine WBC 6-10 /hpf (0-5) H 05/22/18 18:55 Ur Epithelial Cells OCCASIONAL /lpf (FEW) 05/22/18 18:55 Urine Bacteria 2+ /hpf (NONE SEEN) H 05/22/18 18:55 Urine Osmolality 583 mOsmol/kg 05/24/18 06:00 Ur Random Sodium 14 mmol/L 05/24/18 06:00 Vancomycin Trough 7.0 ug/mL (5-10) 06/05/18 09:00 Valproic Acid 29.3 ug/mL (50.0-100.0) L 05/22/18 17:34 Blood Type O NEGATIVE 06/01/18 14:45 Antibody Screen NEGATIVE 06/01/18 14:45 Crossmatch See Detail 06/01/18 14:45 - Physical Exam Vitals and I&O: Vital Signs Temp 97.5 F 06/06/18 20:00 Pulse 89 06/07/18 01:00 Resp 19 06/07/18 01:00 BP 133/50 06/07/18 01:00 Pulse Ox 95 06/07/18 01:00 Intake & Output 06/06/18 06/06/18 06/07/18 06:59 18:59 06:59 Intake Total 1215.057 0 959.243 Output Total 1010 1310 Balance 205.057 0 -350.757 Weight (lbs) 93.44 kg 92.805 kg Intake: Intake, IV Amount 1215.057 0 959.243 Albumin 25% 12.5gm/50mL 50 12.5 gm In 50 ml @ 50 mls /hr IV [facility] Rx#: [id number] Meropenem 500 mg In 200 200 Sodium Chloride 0.9% 100 ml @ 100 mls/hr IV Q8H [facility] Rx#:[id number] Multivitamin Inj 10 ml 417.333 Insulin Human Regular 30 units In Dextrose 70% 500 ml In Amino Acids 8.5% 500 ml In Water, Sterile 700 ml @ 80 mls/hr IV . [id number] [facility] Rx#:[id number] Multivitamin Inj 10 ml 942.667 Insulin Human Regular 35 units In Dextrose 70% 500 ml In Amino Acids 8.5% 500 ml In Water, Sterile 700 ml @ 80 mls/hr IV . [id number] [facility] Rx#:[id number] Norepinephrine 4 mg In 72.390 0 41.91 Dextrose 5% 250 ml @ Titrate IV TITR PRN Rx#: [id number] Vancomycin HCl 1.25 gm In 250 Sodium Chloride 0.9% 250 ml @ 165 mls/hr IV Q24H [facility] Rx#:[id number] Oral 0 0 Output: Gastric Drainage 50 0 Drainage 360 160 Left Lower Abdomen 260 80 Right Lower Abdomen 100 80 Urine 600 1150 Other: # Bowel Movements 0 1 Weight Source Bedscale Bedscale Active Medications: Current Medications Acetaminophen (Tylenol 650mg Supp) 650 mg RC Q4H PRN PRN Reason: PAIN OR TEMP >101 Stop: 07/21/18 22:25 Albuterol/Ipratropium (Duoneb Neb) 3 ml HHN [id number] [facility] Stop: 07/22/18 18:59 Last Admin: 06/06/18 19:38 Dose: 3 ml Bisacodyl (Dulcolax 10 Mg Supp) 10 mg RC DAILY [facility] Stop: 07/22/18 12:14 Last Admin: 06/06/18 09:14 Dose: 10 mg Budesonide (Pulmicort) 0.5 mg HHN BIDRT [facility] Stop: 07/22/18 18:59 Last Admin: 06/06/18 19:38 Dose: 0.5 mg Calamine/Phenol (Calmoseptine) 1 appl TP QID PRN PRN Reason: Skin Irritation Stop: 07/25/18 15:43 Last Admin: 05/26/18 17:23 Dose: 1 appl [place] Oil/[place] Balsam/Trypsin (Venelex) 1 appl TP DAILY [facility] Stop: 07/25/18 15:59 Last Admin: 06/06/18 09:15 Dose: 1 appl Divalproex Sodium (Depakote Dr) 250 mg PO BID [facility]; Protocol Stop: 07/22/18 16:59 Last Admin: 06/06/18 17:54 Dose: 250 mg Gabapentin (Neurontin) 300 mg PO TID [facility] Stop: 07/22/18 13:59 Last Admin: 06/06/18 20:28 Dose: 300 mg Hydromorphone HCl (Dilaudid) 1 mg IVP Q3H PRN PRN Reason: Severe Pain Stop: 07/31/18 13:19 Last Admin: 06/07/18 01:11 Dose: 1 mg Norepinephrine Bitartrate 4 mg (/ Dextrose) 254 mls @ 0 mls/hr IV TITR PRN; Protocol PRN Reason: BP MAINTENANCE (PER PROTOCOL) Stop: 07/31/18 17:54 Last Titration: 06/06/18 19:00 Dose: 0 mcg/min, 0 mls/hr Meropenem 500 mg/ Sodium (Chloride) 100 mls @ 100 mls/hr IV Q8H [facility] Stop: 07/31/18 20:59 Last Infusion: 06/06/18 21:50 Dose: Infused Vancomycin HCl 1.25 gm/ Sodium (Chloride) 250 mls @ 165 mls/hr IV Q24H [facility] Stop: 08/05/18 09:59 Last Infusion: 06/06/18 19:00 Dose: Infused Multivitamins/Minerals 10 ml/Insulin Human Regular 30 units / Dextrose/ Amino Acids/Electrolytes/ Sterile Water 1,710.3 mls @ 80 mls/hr IV .[id number] [facility] Stop: 06/25/18 15:59 Last Infusion: 06/06/18 19:00 Dose: 80 mls/hr Insulin Aspart (Novolog Insulin Sliding Scale) 0 units SUBQ Q6HR [facility]; Protocol Stop: 07/22/18 11:59 Last Admin: 06/07/18 01:00 Dose: 2 units Lactobacillus Rhamnosus (Culturelle 15b) 1 each PO DAILY [facility] Stop: 07/25/18 08:59 Last Admin: 06/06/18 09:10 Dose: Not Given Lorazepam (Ativan) 0.5 mg IVP Q6H PRN PRN Reason: AGITATION Stop: 07/30/18 15:47 Last Admin: 06/06/18 02:05 Dose: 0.5 mg Miscellaneous (Probiotic Screen) 1 ea PRN PRN PRN Reason: PROTOCOL Stop: 07/24/18 14:14 Miscellaneous (Vancomycin Iv Per Pharmacy) 1 ea PRN [facility] Stop: 07/31/18 20:44 Miscellaneous (Tpn Per Pharmacy) 1 [facility] PRN PRN PRN Reason: TPN PER RX Stop: 08/02/18 07:51 Morphine Sulfate (Morphine) 2 mg IVP Q3H PRN PRN Reason: Pain (Severe) Stop: 07/21/18 22:22 Last Admin: 06/06/18 04:40 Dose: 2 mg Ondansetron HCl (Zofran) 4 mg IV Q6H PRN PRN Reason: Nausea / Vomiting Stop: 07/21/18 22:24 Last Admin: 05/25/18 11:11 Dose: 4 mg Pantoprazole Sodium (Protonix) 40 mg IVP QDAC [facility] Stop: 08/02/18 08:59 Last Admin: 06/06/18 06:38 Dose: 40 mg - Procedures Procedures: Procedures Procedure Code Date EMERGENCY DEPT VISIT 65920 02/03/00 EXCISION OF SMALL INTESTINE, PERC ENDO APPROACH [id number] 05/22/18 EXCISION OF TRANSVERSE COLON, PERC ENDO APPROACH [id number] 05/22/18 IMMOBILIZ/WOUND ATTN NEC 93.59 08/01/01 RELEASE SMALL INTESTINE, OPEN APPROACH [id number] 05/22/18 REPAIR SMALL INTESTINE, PERCUTANEOUS ENDOSCOPIC APPROACH [id number] 12/23/18 RESPIRATORY VENTILATION, 24-96 CONSECUTIVE HOURS [id number] 05/22/18 Infectious Disease Assmt/Plan - Problem List Patient Problems: All Active Problems Bowel obstruction (Acute) K56.609 Bowel obstruction (Acute) K56.609 PERIPHERAL TREMORS WITH DIAPHORESIS (Acute) Nutritional Asmnt/Malnutr-PDOC - Dietary Evaluation Malnutrition Findings (Please click <Entered> for more info): Nutritional Asmnt/Malnutrition Start: 05/23/18 16: 41 Text: Status: Complete Freq: Protocol: Document 05/23/18 16:41 LCHENG (Rec: 05/23/18 16:54 LCHENG [id number]) Nutritional Asmnt/Malnutrition Patient General Information Nutritional Screening High Risk Consult Diagnosis bowel obstruction Pertinent Medical Hx/Surgical Hx HTN, dyslipidemia, depression, anxiety, impulse disorder Subjective Information Consult received for elevated glucose 249. pt admitted for abdominal pain. Pt seen resting in bed at time of visit. Pt is NPO, NGT on suction. Current Diet Order/ Nutrition Support NPO Pertinent Medications novolot, piperacillin, zofran, piperacillin, nacl Pertinent Labs 05/23 Na 120, Cl 89, Cr 0.5, glucsose 241, alb 3.4 Nutritional Hx/Data Height 1.63 m Height (Calculated Centimeters) 162.6 Current Weight (lbs) 77.111 kg Weight (Calculated Kilograms) 77.1 Weight (Calculated Grams) 25242.7 [place] Body Weight 120 Body Mass Index (BMI) 29.2 Weight Status Overweight GI Symptoms GI Symptoms None Last BM not indicated Difficult in: None Skin Integrity/Comment: ecchymosis Current %PO Negligible < 25% Estimated Nutritional Goals BEE in Kcals: Using Current wt Calories/Kcals/Kg 23-27 Kcals Calculated Protein: Using Current wt Protein g/k.8-1 Protein Calculated 62-77 Fluid: ml [id number] Nutritional Problem 2. Problem Problem altered nutrition related labs Etiology hyperglycemia Signs/Symptoms: glucose 241-249 1. Problem Problem inadequate food intake Etiology GI dysfunction Signs/Symptoms: pt on NPO Malnutrition Alert Is there a minimum of two criteria No selected? Query Text:Check all the applicable criteria. A minimum of two criteria are recommended for diagnosis of either severe or non-severe malnutrition. Malnutrition Related to Morbid Obesity Malnutrition related to morbid obesity No Intervention/Recommendation Comments 1. Monitor NPO status. Recommend clear liquid diet with Ensure Clear TID if diet advanced when medically appropriate 2. Monitor GI, wt, labs and skin integrity 3. F/U as high risk in 2-3 days Expected Outcomes/Goals Expected Outcomes/Goals 1. oral diet initiated in 2-3 days 2. Wt stability, skin to remain intact, labs to approach WNL.
[2018-06-07] MEDS: Meropenem 500 MG in Sodium Chloride 0.9% 100 ML IV SCH ×3 (04:46→20:21)
[2018-06-07 04:50] LABS: ALLEN TEST Positive; pH 7.44 (7.35-7.45)
[2018-06-07 06:56] LABS: RED BLOOD COUNT 3.18 Mil/cmm (3.80-5.20); RED CELL DISTRIBUTION WIDTH 13.9 % (11.5-20.0)
[2018-06-07 06:59] LABS: HEMATOCRIT 27.6 % (41.0-60); HEMOGLOBIN 9.6 gm/dL (12-16); MEAN CELL VOLUME 86.7 fl (81-100); MEAN CORPUSCULAR HEMOGLOBIN 30.1 pg (27.0-31.0); MEAN CORPUSCULAR HGB CONC 34.7 pg (28.0-36.0); MEAN PLATELET VOLUME 8.5 fl; PLATELET COUNT 191 Th/cmm (150-400); WHITE BLOOD COUNT 10.8 Th/cmm (4.8-10.8)
[2018-06-07 08:04] LABS: ALB/GLOB RATIO 0.8 (1.0-1.8); ALBUMIN 1.8 gm/dL (3.7-5.3); ALKALINE PHOSPHATASE 57 U/L (34-104); ANION GAP 8.5 (7.0-16.0); BILIRUBIN,TOTAL 0.4 mg/dL (0.3-1.0); BUN - UREA NITROGEN 25 mg/dL (7-25); CALCIUM SERUM 7.4 mg/dL (8.6-10.3); CHLORIDE 104 mEq/L (98-107); CREATININE - SERUM 0.3 mg/dL (0.6-1.2); GLUCOSE 182 mg/dL (70-105); POTASSIUM SERUM 4.5 mEq/L (3.5-5.1); SGOT 21 U/L (13-39); SGPT/ALT 15 U/L (7-52); SODIUM SERUM 134 mEq/L (136-145); TOTAL PROTEIN,SERUM 4.1 gm/dL (6.0-8.3)
[2018-06-07] MEDS: Albuterol/Ipratropium Neb 3 ML AERS HHN SCH ×4 (08:04→19:05)
[2018-06-07] MEDS: Budesonide 0.5 Mg/2 mL Ud HHN SCH ×2 (08:04→19:05)
[2018-06-07 08:15] LABS: BAND NEUTROPHILE 4 % (0-10); LYMPHOCYTE 5 % (20-50); NEUTROPHILS 87 % (40-80)
[2018-06-07 08:16] LABS: MAGNESIUM 2.1 mg/dL (1.9-2.7); PHOSPHOROUS 3.3 mg/dL (2.5-5.0)
[2018-06-07 08:16] LABS: BASOPHIL 0 % (0-3); EOSINOPHIL 1 % (0-5); MONOCYTE 3 % (2-10)
--- NOTE | 2018-06-07 09:24 | GI Progress Note ---
Subjective - Review of Systems Service Date: 06/07/18 Subjective: GI NOTE EVENTS NOTED. MINIMAL NG OUTPT. HAVING BM'S. AWAITING SWALLOW EVAL. Objective - Results Result Diagrams: 06/07/18 06:00 06/07/18 07:45 Recent Labs: Laboratory Last Values WBC 10.8 Th/cmm (4.8-10.8) 06/07/18 06:00 Corrected WBC (auto) 3.0 Th/cmm (4.8-10.8) L 05/26/18 04:00 RBC 3.18 Mil/cmm (3.80-5.20) L 06/07/18 06:00 Hgb 9.6 gm/dL (12-16) L 06/07/18 06:00 Hct 27.6 % (41.0-60) L 06/07/18 06:00 MCV 86.7 fl (81-100) 06/07/18 06:00 MCH 30.1 pg (27.0-31.0) 06/07/18 06:00 MCHC Differential 34.7 pg (28.0-36.0) 06/07/18 06:00 RDW 13.9 % (11.5-20.0) 06/07/18 06:00 Plt Count 191 Th/cmm (150-400) 06/07/18 06:00 MPV 8.5 fl 06/07/18 06:00 Add Manual Diff YES 06/07/18 06:00 Neutrophils % 74.6 % (40.0-80.0) 06/01/18 04:30 Band Neutrophils % 4 % (0-10) 06/07/18 06:00 Lymphocytes % 7.9 % (20.0-50.0) L 06/01/18 04:30 Monocytes % 15.9 % (2.0-10.0) H 06/01/18 04:30 Eosinophils % 1.5 % (0.0-5.0) 06/01/18 04:30 Basophils % 0.1 % (0.0-2.0) 06/01/18 04:30 Neutrophils (Manual) 87 % (40-80) H 06/07/18 06:00 Lymphocytes 5 % (20-50) L 06/07/18 06:00 Monocytes 3 % (2-10) 06/07/18 06:00 Eosinophils 1 % (0-5) 06/07/18 06:00 Basophils 0 % (0-3) 06/07/18 06:00 Platelet Estimate ADEQUATE (NORMAL) 06/06/18 04:10 PT 10.8 SECONDS (9.5-11.5) 05/23/18 04:30 INR 1.04 (0.5-1.4) 05/23/18 04:30 PTT (Actin FS) 27.4 SECONDS (26.0-38.0) 05/23/18 04:30 Specimen Source Arterial 06/06/18 20:51 Sample Site Right Radial 06/06/18 20:51 pH 7.44 (7.35-7.45) 06/06/18 20:51 pCO2 39.0 mmHg (35.0-45.0) 06/06/18 20:51 pO2 175.0 mmHg (80.0-100.0) H 06/06/18 20:51 HCO3 26.7 mEq/L (20.0-26.0) H 06/06/18 20:51 Base Excess 2.2 mEq/L (-3.0-3.0) 06/06/18 20:51 O2 Saturation 100.0 % (92.0-100.0) 06/06/18 20:51 Ricky Test Positive 06/06/18 20:51 Vent Rate NA 06/06/18 20:51 Inspired O2 100 06/06/18 20:51 Tidal Volume NA 06/06/18 20:51 PEEP NA 06/06/18 20:51 Pressure (ins/psv/peep) NA 06/06/18 20:51 Critical Value L.[place] 06/06/18 20:51 Sodium 134 mEq/L (136-145) L 06/07/18 07:45 Potassium 4.5 mEq/L (3.5-5.1) 06/07/18 07:45 Chloride 104 mEq/L (98-107) 06/07/18 07:45 Carbon Dioxide 26.0 mEq/L (21.0-31.0) 06/07/18 07:45 Anion Gap 8.5 (7.0-16.0) 06/07/18 07:45 BUN 25 mg/dL (7-25) 06/07/18 07:45 Creatinine 0.3 mg/dL (0.6-1.2) L 06/07/18 07:45 Est GFR ( Amer) TNP 06/07/18 07:45 Est GFR (Non-Af Amer) TNP 06/07/18 07:45 BUN/Creatinine Ratio 83.3 06/07/18 07:45 Glucose 182 mg/dL (70-105) H 06/07/18 07:45 POC Glucose 145 MG/DL (70 - 105) H 06/07/18 06:19 Plasma/Ser Osmolality 259 mOsmol/kg (280-301) L 05/23/18 09:55 Whole Bld Lactic Acid 2.51 mmol/L (0.60-1.99) H* 06/02/18 09:15 Calcium 7.4 mg/dL (8.6-10.3) L 06/07/18 07:45 Phosphorus 3.3 mg/dL (2.5-5.0) 06/07/18 07:45 Magnesium 2.1 mg/dL (1.9-2.7) 06/07/18 07:45 Total Bilirubin 0.4 mg/dL (0.3-1.0) 06/07/18 07:45 Direct Bilirubin 0.14 mg/dL (0.0-0.2) 05/24/18 07:05 AST 21 U/L (13-39) 06/07/18 07:45 ALT 15 U/L (7-52) 06/07/18 07:45 Alkaline Phosphatase 57 U/L (34-104) 06/07/18 07:45 Ammonia 46 umol/L (16-53) 05/25/18 04:00 Total Protein 4.1 gm/dL (6.0-8.3) L 06/07/18 07:45 Albumin 1.8 gm/dL (3.7-5.3) L 06/07/18 07:45 Globulin 2.3 gm/dL 06/07/18 07:45 Albumin/Globulin Ratio 0.8 (1.0-1.8) L 06/07/18 07:45 Prealbumin 5 mg/dL (9-32) L 06/06/18 04:10 Triglycerides 63 mg/dL (<150) 06/06/18 04:10 Cholesterol 77 mg/dL (<200) 06/06/18 04:10 TSH 3.21 uIU/ml (0.34-5.60) 05/22/18 17:34 Urine Source CLEAN C 05/22/18 18:55 Urine Color YELLOW 05/22/18 18:55 Urine Clarity HAZY (CLEAR) 05/22/18 18:55 Urine pH 6.0 (4.6 - 8.0) 05/22/18 18:55 Ur Specific [place] >= 1.030 (1.005-1.030) 05/22/18 18:55 Urine Protein TRACE mg/dL (NEGATIVE) 05/22/18 18:55 Urine Glucose (UA) 100 mg/dL (NEGATIVE) H 05/22/18 18:55 Urine Ketones 40 mg/dL (NEGATIVE) H 05/22/18 18:55 Urine Blood MODERATE (NEGATIVE) H 05/22/18 18:55 Urine Nitrate POSITIVE (NEGATIVE) H 05/22/18 18:55 Urine Bilirubin NEGATIVE (NEGATIVE) 05/22/18 18:55 Urine Urobilinogen 0.2 E.U./dL (0.2 - 1.0) 05/22/18 18:55 Ur Leukocyte Esterase SMALL (NEGATIVE) H 05/22/18 18:55 Urine RBC 0-2 /hpf (0-5) 05/22/18 18:55 Urine WBC 6-10 /hpf (0-5) H 05/22/18 18:55 Ur Epithelial Cells OCCASIONAL /lpf (FEW) 05/22/18 18:55 Urine Bacteria 2+ /hpf (NONE SEEN) H 05/22/18 18:55 Urine Osmolality 583 mOsmol/kg 05/24/18 06:00 Ur Random Sodium 14 mmol/L 05/24/18 06:00 Vancomycin Trough 7.0 ug/mL (5-10) 06/05/18 09:00 Valproic Acid 29.3 ug/mL (50.0-100.0) L 05/22/18 17:34 Blood Type O NEGATIVE 06/01/18 14:45 Antibody Screen NEGATIVE 06/01/18 14:45 Crossmatch See Detail 06/01/18 14:45 - Physical Exam Vitals and I&O: Vital Signs Temp 89.2 F 06/07/18 08:00 Pulse 81 06/07/18 09:00 Resp 21 06/07/18 09:00 BP 113/50 06/07/18 09:00 Pulse Ox 95 06/07/18 09:00 Intake & Output 06/06/18 06/07/18 06/07/18 18:59 06:59 18:59 Intake Total 0 1059.243 Output Total 2330 Balance 0 -1270.757 Weight (lbs) 94.846 kg Intake: Intake, IV Amount 0 1059.243 Albumin 25% 12.5gm/50mL 50 12.5 gm In 50 ml @ 50 mls /hr IV X1 ONE Rx#: [id number] Meropenem 500 mg In 300 Sodium Chloride 0.9% 100 ml @ 100 mls/hr IV Q8H [facility] Rx#:[id number] Multivitamin Inj 10 ml 417.333 Insulin Human Regular 30 units In Dextrose 70% 500 ml In Amino Acids 8.5% 500 ml In Water, Sterile 700 ml @ 80 mls/hr IV . [id number] [facility] Rx#:[id number] Norepinephrine 4 mg In 0 41.91 Dextrose 5% 250 ml @ Titrate IV TITR PRN Rx#: [id number] Vancomycin HCl 1.25 gm In 250 Sodium Chloride 0.9% 250 ml @ 165 mls/hr IV Q24H [facility] Rx#:[id number] Oral 0 Output: Gastric Drainage 0 Drainage 530 Left Lower Abdomen 290 Right Lower Abdomen 240 Urine 1800 Other: # Bowel Movements 0 Weight Source Bedscale Active Medications: Current Medications Acetaminophen (Tylenol 650mg Supp) 650 mg RC Q4H PRN PRN Reason: PAIN OR TEMP >101 Stop: 07/21/18 22:25 Albuterol/Ipratropium (Duoneb Neb) 3 ml HHN [id number] [facility] Stop: 07/22/18 18:59 Last Admin: 06/07/18 08:04 Dose: 3 ml Bisacodyl (Dulcolax 10 Mg Supp) 10 mg RC DAILY [facility] Stop: 07/22/18 12:14 Last Admin: 06/06/18 09:14 Dose: 10 mg Budesonide (Pulmicort) 0.5 mg HHN BIDRT [facility] Stop: 07/22/18 18:59 Last Admin: 06/07/18 08:04 Dose: 0.5 mg Calamine/Phenol (Calmoseptine) 1 appl TP QID PRN PRN Reason: Skin Irritation Stop: 07/25/18 15:43 Last Admin: 05/26/18 17:23 Dose: 1 appl [place] Oil/[place] Balsam/Trypsin (Venelex) 1 appl TP DAILY [facility] Stop: 07/25/18 15:59 Last Admin: 06/06/18 09:15 Dose: 1 appl Divalproex Sodium (Depakote Dr) 250 mg PO BID [facility]; Protocol Stop: 07/22/18 16:59 Last Admin: 06/06/18 17:54 Dose: 250 mg Gabapentin (Neurontin) 300 mg PO TID [facility] Stop: 07/22/18 13:59 Last Admin: 06/06/18 20:28 Dose: 300 mg Hydromorphone HCl (Dilaudid) 1 mg IVP Q3H PRN PRN Reason: Severe Pain Stop: 07/31/18 13:19 Last Admin: 06/07/18 01:11 Dose: 1 mg Norepinephrine Bitartrate 4 mg (/ Dextrose) 254 mls @ 0 mls/hr IV TITR PRN; Protocol PRN Reason: BP MAINTENANCE (PER PROTOCOL) Stop: 07/31/18 17:54 Last Titration: 06/06/18 19:00 Dose: 0 mcg/min, 0 mls/hr Meropenem 500 mg/ Sodium (Chloride) 100 mls @ 100 mls/hr IV Q8H [facility] Stop: 07/31/18 20:59 Last Infusion: 06/07/18 05:50 Dose: Infused Vancomycin HCl 1.25 gm/ Sodium (Chloride) 250 mls @ 165 mls/hr IV Q24H [facility] Stop: 08/05/18 09:59 Last Infusion: 06/06/18 19:00 Dose: Infused Multivitamins/Minerals 10 ml/Insulin Human Regular 30 units / Dextrose/ Amino Acids/Electrolytes/ Sterile Water 1,710.3 mls @ 80 mls/hr IV .[id number] [facility] Stop: 06/25/18 15:59 Last Infusion: 06/06/18 19:00 Dose: 80 mls/hr Insulin Aspart (Novolog Insulin Sliding Scale) 0 units SUBQ Q6HR [facility]; Protocol Stop: 07/22/18 11:59 Last Admin: 06/07/18 06:31 Dose: Not Given Lactobacillus Rhamnosus (Culturelle 15b) 1 each PO DAILY [facility] Stop: 07/25/18 08:59 Last Admin: 06/06/18 09:10 Dose: Not Given Lorazepam (Ativan) 0.5 mg IVP Q6H PRN PRN Reason: AGITATION Stop: 07/30/18 15:47 Last Admin: 06/06/18 02:05 Dose: 0.5 mg Miscellaneous (Probiotic Screen) 1 ea PRN PRN PRN Reason: PROTOCOL Stop: 07/24/18 14:14 Miscellaneous (Vancomycin Iv Per Pharmacy) 1 ea PRN [facility] Stop: 07/31/18 20:44 Miscellaneous (Tpn Per Pharmacy) 1 ea PRN PRN PRN Reason: TPN PER RX Stop: 08/02/18 07:51 Morphine Sulfate (Morphine) 2 mg IVP Q3H PRN PRN Reason: Pain (Severe) Stop: 07/21/18 22:22 Last Admin: 06/06/18 04:40 Dose: 2 mg Ondansetron HCl (Zofran) 4 mg IV Q6H PRN PRN Reason: Nausea / Vomiting Stop: 07/21/18 22:24 Last Admin: 05/25/18 11:11 Dose: 4 mg Pantoprazole Sodium (Protonix) 40 mg IVP QDAC [facility] Stop: 08/02/18 08:59 Last Admin: 06/07/18 06:56 Dose: 40 mg General: No acute distress HEENT: Other (NGT) Neck: Supple Cardiovascular: Regular rate Lungs: Clear to auscultation Abdomen: Soft, Drain, no Distended - Procedures Procedures: Procedures Procedure Code Date EMERGENCY DEPT VISIT 46802 02/03/00 EXCISION OF SMALL INTESTINE, PERC ENDO APPROACH [id number] 05/22/18 EXCISION OF TRANSVERSE COLON, PERC ENDO APPROACH [id number] 05/22/18 IMMOBILIZ/WOUND ATTN NEC 93.59 08/01/01 RELEASE SMALL INTESTINE, OPEN APPROACH [id number] 05/22/18 REPAIR SMALL INTESTINE, PERCUTANEOUS ENDOSCOPIC APPROACH [id number] 05/22/18 RESPIRATORY VENTILATION, 24-96 CONSECUTIVE HOURS [id number] 05/22/18 Assessment/Plan - Problem List Patient Problems: All Active Problems Bowel obstruction (Acute) K56.609 Bowel obstruction (Acute) K56.609 PERIPHERAL TREMORS WITH DIAPHORESIS (Acute) - Assessment Assessment: IMPRESSION: 1. Bowel obstruction large and small - s/p ex lap 06/01/18 with partial resections of small and large intestines, ventral hernia repair. 2. Post op ileus, better. 3. Sepsis with hypotension, better. RECS: -Post op care as per surgeon. -Abx. -continue TPN. -monitor labs. -NGT to be clamped; may give meds per NGT. -await swallow evaluation - will start oral diet as per speech. -PT/rehab.
[2018-06-07] MEDS: Lactobacillus Rhamnosus GG 15 Billion CFU CAP.SPRINK PO SCH (09:31)
[2018-06-07] MEDS: Morphine Sulfate 2 mg/mL 1mL Syr IVP PRN ×2 (11:22→19:51)
[2018-06-07] MEDS: TPN 8.5%-70% CUSTOM IV SCH (15:40)
[2018-06-07] MEDS: Venelex 60gm Tube TP SCH (16:00)
--- NOTE | 2018-06-07 17:18 | Progress Notes ---
DATE: 06/07/2018 PROBLEM LIST: 1. Status post abdominal surgery with obstruction. 2. Underlying psychiatric history. 3. History of periodic shortness of breath, suspect sleep apnea syndrome. SYMPTOMS: Nil. HISTORY OF PRESENT ILLNESS: The patient is scared, apparently ____ attempt to speech therapy swallow evaluation was made. Subsequently, she failed, but subsequently she started choking and having more shortness of breath and desaturation, had to put on 40% of ____ mask. OBJECTIVE: GENERAL: Currently, not in acute respiratory distress. VITAL SIGNS: Temperature is 99, pulse in 80s and 90s, respirations in low 20s, saturation in mid 90s on 35% of oxygen. NECK: Neck veins are not visualized. CHEST: Shows occasional rhonchi with diminished air entry. HEART: Regular. ABDOMEN: Slightly tender with wound. LABORATORY DATA: White count is 10.8, hemoglobin 9.6. ASSESSMENT: The patient clinically appears to be stable, not too much change. PLANS AND SUGGESTIONS: We will slightly taper the oxygen down. We will follow through another chest x-ray tomorrow to see how it is and go from there. JOB# [id number]
--- NOTE | 2018-06-07 20:13 | General Progress Note ---
Subjective - Review of Systems Service Date: 06/06/18 Subjective: Late entry: Patient seen and examined awake confused wants to eat still on NG suction Objective - Results Result Diagrams: 06/07/18 06:00 06/07/18 07:45 Recent Labs: Laboratory Last Values WBC 10.8 Th/cmm (4.8-10.8) 06/07/18 06:00 Corrected WBC (auto) 3.0 Th/cmm (4.8-10.8) L 05/26/18 04:00 RBC 3.18 Mil/cmm (3.80-5.20) L 06/07/18 06:00 Hgb 9.6 gm/dL (12-16) L 06/07/18 06:00 Hct 27.6 % (41.0-60) L 06/07/18 06:00 MCV 86.7 fl (81-100) 06/07/18 06:00 MCH 30.1 pg (27.0-31.0) 06/07/18 06:00 MCHC Differential 34.7 pg (28.0-36.0) 06/07/18 06:00 RDW 13.9 % (11.5-20.0) 06/07/18 06:00 Plt Count 191 Th/cmm (150-400) 06/07/18 06:00 MPV 8.5 fl 06/07/18 06:00 Add Manual Diff YES 06/07/18 06:00 Neutrophils % 74.6 % (40.0-80.0) 06/01/18 04:30 Band Neutrophils % 4 % (0-10) 06/07/18 06:00 Lymphocytes % 7.9 % (20.0-50.0) L 06/01/18 04:30 Monocytes % 15.9 % (2.0-10.0) H 06/01/18 04:30 Eosinophils % 1.5 % (0.0-5.0) 06/01/18 04:30 Basophils % 0.1 % (0.0-2.0) 06/01/18 04:30 Neutrophils (Manual) 87 % (40-80) H 06/07/18 06:00 Lymphocytes 5 % (20-50) L 06/07/18 06:00 Monocytes 3 % (2-10) 06/07/18 06:00 Eosinophils 1 % (0-5) 06/07/18 06:00 Basophils 0 % (0-3) 06/07/18 06:00 Platelet Estimate ADEQUATE (NORMAL) 06/06/18 04:10 PT 10.8 SECONDS (9.5-11.5) 05/23/18 04:30 INR 1.04 (0.5-1.4) 05/23/18 04:30 PTT (Actin FS) 27.4 SECONDS (26.0-38.0) 05/23/18 04:30 Specimen Source Arterial 06/06/18 20:51 Sample Site Right Radial 06/06/18 20:51 pH 7.44 (7.35-7.45) 06/06/18 20:51 pCO2 39.0 mmHg (35.0-45.0) 06/06/18 20:51 pO2 175.0 mmHg (80.0-100.0) H 06/06/18 20:51 HCO3 26.7 mEq/L (20.0-26.0) H 06/06/18 20:51 Base Excess 2.2 mEq/L (-3.0-3.0) 06/06/18 20:51 O2 Saturation 100.0 % (92.0-100.0) 06/06/18 20:51 Ricky Test Positive 06/06/18 20:51 Vent Rate NA 06/06/18 20:51 Inspired O2 100 06/06/18 20:51 Tidal Volume NA 06/06/18 20:51 PEEP NA 06/06/18 20:51 Pressure (ins/psv/peep) NA 06/06/18 20:51 Critical Value L.[place] 06/06/18 20:51 Sodium 134 mEq/L (136-145) L 06/07/18 07:45 Potassium 4.5 mEq/L (3.5-5.1) 06/07/18 07:45 Chloride 104 mEq/L (98-107) 06/07/18 07:45 Carbon Dioxide 26.0 mEq/L (21.0-31.0) 06/07/18 07:45 Anion Gap 8.5 (7.0-16.0) 06/07/18 07:45 BUN 25 mg/dL (7-25) 06/07/18 07:45 Creatinine 0.3 mg/dL (0.6-1.2) L 06/07/18 07:45 Est GFR ( Amer) TNP 06/07/18 07:45 Est GFR (Non-Af Amer) TNP 06/07/18 07:45 BUN/Creatinine Ratio 83.3 06/07/18 07:45 Glucose 182 mg/dL (70-105) H 06/07/18 07:45 POC Glucose 181 MG/DL (70 - 105) H 06/07/18 18:26 Plasma/Ser Osmolality 259 mOsmol/kg (280-301) L 05/23/18 09:55 Whole Bld Lactic Acid 2.51 mmol/L (0.60-1.99) H* 06/02/18 09:15 Calcium 7.4 mg/dL (8.6-10.3) L 06/07/18 07:45 Phosphorus 3.3 mg/dL (2.5-5.0) 06/07/18 07:45 Magnesium 2.1 mg/dL (1.9-2.7) 06/07/18 07:45 Total Bilirubin 0.4 mg/dL (0.3-1.0) 06/07/18 07:45 Direct Bilirubin 0.14 mg/dL (0.0-0.2) 05/24/18 07:05 AST 21 U/L (13-39) 06/07/18 07:45 ALT 15 U/L (7-52) 06/07/18 07:45 Alkaline Phosphatase 57 U/L (34-104) 06/07/18 07:45 Ammonia 46 umol/L (16-53) 05/25/18 04:00 Total Protein 4.1 gm/dL (6.0-8.3) L 06/07/18 07:45 Albumin 1.8 gm/dL (3.7-5.3) L 06/07/18 07:45 Globulin 2.3 gm/dL 06/07/18 07:45 Albumin/Globulin Ratio 0.8 (1.0-1.8) L 06/07/18 07:45 Prealbumin 5 mg/dL (9-32) L 06/06/18 04:10 Triglycerides 63 mg/dL (<150) 06/06/18 04:10 Cholesterol 77 mg/dL (<200) 06/06/18 04:10 TSH 3.21 uIU/ml (0.34-5.60) 05/22/18 17:34 Urine Source CLEAN C 05/22/18 18:55 Urine Color YELLOW 05/22/18 18:55 Urine Clarity HAZY (CLEAR) 05/22/18 18:55 Urine pH 6.0 (4.6 - 8.0) 05/22/18 18:55 Ur Specific [place] >= 1.030 (1.005-1.030) 05/22/18 18:55 Urine Protein TRACE mg/dL (NEGATIVE) 05/22/18 18:55 Urine Glucose (UA) 100 mg/dL (NEGATIVE) H 05/22/18 18:55 Urine Ketones 40 mg/dL (NEGATIVE) H 05/22/18 18:55 Urine Blood MODERATE (NEGATIVE) H 05/22/18 18:55 Urine Nitrate POSITIVE (NEGATIVE) H 05/22/18 18:55 Urine Bilirubin NEGATIVE (NEGATIVE) 05/22/18 18:55 Urine Urobilinogen 0.2 E.U./dL (0.2 - 1.0) 05/22/18 18:55 Ur Leukocyte Esterase SMALL (NEGATIVE) H 05/22/18 18:55 Urine RBC 0-2 /hpf (0-5) 05/22/18 18:55 Urine WBC 6-10 /hpf (0-5) H 05/22/18 18:55 Ur Epithelial Cells OCCASIONAL /lpf (FEW) 05/22/18 18:55 Urine Bacteria 2+ /hpf (NONE SEEN) H 05/22/18 18:55 Urine Osmolality 583 mOsmol/kg 05/24/18 06:00 Ur Random Sodium 14 mmol/L 05/24/18 06:00 Vancomycin Trough 7.0 ug/mL (5-10) 06/05/18 09:00 Valproic Acid 29.3 ug/mL (50.0-100.0) L 05/22/18 17:34 Blood Type O NEGATIVE 06/01/18 14:45 Antibody Screen NEGATIVE 06/01/18 14:45 Crossmatch See Detail 06/01/18 14:45 - Physical Exam Vitals and I&O: Vital Signs Temp 99 F 06/07/18 16:00 Pulse 88 06/07/18 19:17 Resp 21 06/07/18 19:17 BP 130/84 06/07/18 18:59 Pulse Ox 97 06/07/18 19:17 Intake & Output 06/07/18 06/07/18 06/08/18 06:59 18:59 06:59 Intake Total 2401.168 0859.967 1310 Output Total 2330 1350 Balance -4070.761 0515.967 -40 Weight (lbs) 94.846 kg 95.254 kg Intake: Intake, IV Amount 0256.585 3385.967 Albumin 25% 12.5gm/50mL 50 12.5 gm In 50 ml @ 50 mls /hr IV X1 [facility] Rx#: [id number] Meropenem 500 mg In 300 100 Sodium Chloride 0.9% 100 ml @ 100 mls/hr IV Q8H [facility] Rx#:[id number] Multivitamin Inj 10 ml 210.342 4067.967 Insulin Human Regular 30 units In Dextrose 70% 500 ml In Amino Acids 8.5% 500 ml In Water, Sterile 700 ml @ 80 mls/hr IV . [id number] [facility] Rx#:[id number] Norepinephrine 4 mg In 41.91 Dextrose 5% 250 ml @ Titrate IV TITR PRN Rx#: [id number] Vancomycin HCl 1.25 gm In 250 250 Sodium Chloride 0.9% 250 ml @ 165 mls/hr IV Q24H [facility] Rx#:[id number] Oral 0 TPN/PPN 960 Other 350 Output: Gastric Drainage 0 0 Drainage 530 550 Left Lower Abdomen 290 300 Right Lower Abdomen 240 250 Urine 1800 800 Other: # Bowel Movements 0 0 Weight Source Bedscale Bedscale Active Medications: Current Medications Acetaminophen (Tylenol 650mg Supp) 650 mg RC Q4H PRN PRN Reason: PAIN OR TEMP >101 Stop: 07/21/18 22:25 Albuterol/Ipratropium (Duoneb Neb) 3 ml HHN [id number] [facility] Stop: 07/22/18 18:59 Last Admin: 06/07/18 19:05 Dose: 3 ml Bisacodyl (Dulcolax 10 Mg Supp) 10 mg RC DAILY [facility] Stop: 07/22/18 12:14 Last Admin: 06/07/18 09:32 Dose: Not Given Budesonide (Pulmicort) 0.5 mg HHN BIDRT [facility] Stop: 07/22/18 18:59 Last Admin: 06/07/18 19:05 Dose: 0.5 mg Calamine/Phenol (Calmoseptine) 1 appl TP QID PRN PRN Reason: Skin Irritation Stop: 07/25/18 15:43 Last Admin: 05/26/18 17:23 Dose: 1 appl [place] Oil/[place] Balsam/Trypsin (Venelex) 1 appl TP DAILY [facility] Stop: 07/25/18 15:59 Last Admin: 06/07/18 16:00 Dose: 1 appl Divalproex Sodium (Depakote Dr) 250 mg PO BID [facility]; Protocol Stop: 07/22/18 16:59 Last Admin: 06/07/18 18:58 Dose: Not Given Gabapentin (Neurontin) 300 mg PO TID [facility] Stop: 07/22/18 13:59 Last Admin: 06/07/18 15:29 Dose: Not Given Hydromorphone HCl (Dilaudid) 1 mg IVP Q3H PRN PRN Reason: Severe Pain Stop: 07/31/18 13:19 Last Admin: 06/07/18 01:11 Dose: 1 mg Norepinephrine Bitartrate 4 mg (/ Dextrose) 254 mls @ 0 mls/hr IV TITR PRN; Protocol PRN Reason: BP MAINTENANCE (PER PROTOCOL) Stop: 07/31/18 17:54 Last Titration: 06/06/18 19:00 Dose: 0 mcg/min, 0 mls/hr Meropenem 500 mg/ Sodium (Chloride) 100 mls @ 100 mls/hr IV Q8H [facility] Stop: 07/31/18 20:59 Last Infusion: 06/07/18 15:29 Dose: Infused Vancomycin HCl 1.25 gm/ Sodium (Chloride) 250 mls @ 165 mls/hr IV Q24H [facility] Stop: 08/05/18 09:59 Last Infusion: 06/07/18 14:21 Dose: Infused Multivitamins/Minerals 10 ml/Insulin Human Regular 30 units / Dextrose/ Amino Acids/Electrolytes/ Sterile Water 1,710.3 mls @ 80 mls/hr IV .[id number] [facility] Stop: 06/25/18 15:59 Last Admin: 06/07/18 15:40 Dose: 80 mls/hr Insulin Aspart (Novolog Insulin Sliding Scale) 0 units SUBQ Q6HR [facility]; Protocol Stop: 07/22/18 11:59 Last Admin: 06/07/18 18:30 Dose: 2 units Lactobacillus Rhamnosus (Culturelle 15b) 1 each PO DAILY [facility] Stop: 07/25/18 08:59 Last Admin: 06/07/18 09:31 Dose: Not Given Lorazepam (Ativan) 0.5 mg IVP Q6H PRN PRN Reason: AGITATION Stop: 07/30/18 15:47 Last Admin: 06/06/18 02:05 Dose: 0.5 mg Miscellaneous (Probiotic Screen) 1 ea PRN PRN PRN Reason: PROTOCOL Stop: 07/24/18 14:14 Miscellaneous (Vancomycin Iv Per Pharmacy) 1 ea PRN MARIIA Stop: 07/31/18 20:44 Miscellaneous (Tpn Per Pharmacy) 1 ea PRN PRN PRN Reason: TPN PER RX Stop: 08/02/18 07:51 Morphine Sulfate (Morphine) 2 mg IVP Q3H PRN PRN Reason: Pain (Severe) Stop: 07/21/18 22:22 Last Admin: 06/07/18 19:51 Dose: 2 mg Ondansetron HCl (Zofran) 4 mg IV Q6H PRN PRN Reason: Nausea / Vomiting Stop: 07/21/18 22:24 Last Admin: 05/25/18 11:11 Dose: 4 mg Pantoprazole Sodium (Protonix) 40 mg IVP QDAC [facility] Stop: 08/02/18 08:59 Last Admin: 06/07/18 06:56 Dose: 40 mg General: No acute distress HEENT: Other (NGT) Neck: Supple Cardiovascular: Regular rate Lungs: Other (Rales) Abdomen: Soft, Drain, no Tender, no Distended - Procedures Procedures: Procedures Procedure Code Date EMERGENCY DEPT VISIT 70098 02/03/00 EXCISION OF SMALL INTESTINE, PERC ENDO APPROACH [id number] 05/22/18 EXCISION OF TRANSVERSE COLON, PERC ENDO APPROACH [id number] 05/22/18 IMMOBILIZ/WOUND ATTN NEC 93.59 08/01/01 RELEASE SMALL INTESTINE, OPEN APPROACH [id number] 05/22/18 REPAIR SMALL INTESTINE, PERCUTANEOUS ENDOSCOPIC APPROACH [id number] 05/22/18 RESPIRATORY VENTILATION, 24-96 CONSECUTIVE HOURS [id number] 05/22/18 Assessment/Plan - Problem List Patient Problems: All Active Problems Bowel obstruction (Acute) K56.609 Bowel obstruction (Acute) K56.609 PERIPHERAL TREMORS WITH DIAPHORESIS (Acute) - Assessment Assessment: Small bowel obstruction s/p EXP LAP Incarcerated vental herania s/p repair Post op respiratory failure Pnemonia Septic shock Dysphagia Mental health disorder - Plan Plan: Titrate vasopressor IV fluids TPN Broad sprectum antibiotics Monitor I/O Pain control Post op care Monitor lab and vitals DVT prophylaxis Nutritional Asmnt/Malnutr-PDOC - Dietary Evaluation Malnutrition Findings (Please click <Entered> for more info): Nutritional Asmnt/Malnutrition Start: 05/23/18 16: 41 Text: Status: Complete Freq: Protocol: Document 05/23/18 16:41 [email or web address] (Rec: 05/23/18 16:54 [id number]) Nutritional Asmnt/Malnutrition Patient General Information Nutritional Screening High Risk Consult Diagnosis bowel obstruction Pertinent Medical Hx/Surgical Hx HTN, dyslipidemia, depression, anxiety, impulse disorder Subjective Information Consult received for elevated glucose 249. pt admitted for abdominal pain. Pt seen resting in bed at time of visit. Pt is NPO, NGT on suction. Current Diet Order/ Nutrition Support NPO Pertinent Medications novolot, piperacillin, zofran, piperacillin, nacl Pertinent Labs 05/23 Na 120, Cl 89, Cr 0.5, glucsose 241, alb 3.4 Nutritional Hx/Data Height 1.63 m Height (Calculated Centimeters) 162.6 Current Weight (lbs) 77.111 kg Weight (Calculated Kilograms) 77.1 Weight (Calculated Grams) 54822.7 [place] Body Weight 120 Body Mass Index (BMI) 29.2 Weight Status Overweight GI Symptoms GI Symptoms None Last BM not indicated Difficult in: None Skin Integrity/Comment: ecchymosis Current %PO Negligible < 25% Estimated Nutritional Goals BEE in Kcals: Using Current wt Calories/Kcals/Kg 23-27 Kcals Calculated Protein: Using Current wt Protein g/k.8-1 Protein Calculated 62-77 Fluid: ml [id number] Nutritional Problem 2. Problem Problem altered nutrition related labs Etiology hyperglycemia Signs/Symptoms: glucose 241-249 1. Problem Problem inadequate food intake Etiology GI dysfunction Signs/Symptoms: pt on NPO Malnutrition Alert Is there a minimum of two criteria No selected? Query Text:Check all the applicable criteria. A minimum of two criteria are recommended for diagnosis of either severe or non-severe malnutrition. Malnutrition Related to Morbid Obesity Malnutrition related to morbid obesity No Intervention/Recommendation Comments 1. Monitor NPO status. Recommend clear liquid diet with Ensure Clear TID if diet advanced when medically appropriate 2. Monitor GI, wt, labs and skin integrity 3. F/U as high risk in 2-3 days Expected Outcomes/Goals Expected Outcomes/Goals 1. oral diet initiated in 2-3 days 2. Wt stability, skin to remain intact, labs to approach WNL.
--- NOTE | 2018-06-07 20:15 | General Progress Note ---
Subjective - Review of Systems Service Date: 06/07/18 Subjective: Patient seen and examined on venti mask now due to desat Per nursing staff patient failed swallow eval Objective - Results Result Diagrams: 06/07/18 06:00 06/07/18 07:45 Recent Labs: Laboratory Last Values WBC 10.8 Th/cmm (4.8-10.8) 06/07/18 06:00 Corrected WBC (auto) 3.0 Th/cmm (4.8-10.8) L 05/26/18 04:00 RBC 3.18 Mil/cmm (3.80-5.20) L 06/07/18 06:00 Hgb 9.6 gm/dL (12-16) L 06/07/18 06:00 Hct 27.6 % (41.0-60) L 06/07/18 06:00 MCV 86.7 fl (81-100) 06/07/18 06:00 MCH 30.1 pg (27.0-31.0) 06/07/18 06:00 MCHC Differential 34.7 pg (28.0-36.0) 06/07/18 06:00 RDW 13.9 % (11.5-20.0) 06/07/18 06:00 Plt Count 191 Th/cmm (150-400) 06/07/18 06:00 MPV 8.5 fl 06/07/18 06:00 Add Manual Diff YES 06/07/18 06:00 Neutrophils % 74.6 % (40.0-80.0) 06/01/18 04:30 Band Neutrophils % 4 % (0-10) 06/07/18 06:00 Lymphocytes % 7.9 % (20.0-50.0) L 06/01/18 04:30 Monocytes % 15.9 % (2.0-10.0) H 06/01/18 04:30 Eosinophils % 1.5 % (0.0-5.0) 06/01/18 04:30 Basophils % 0.1 % (0.0-2.0) 06/01/18 04:30 Neutrophils (Manual) 87 % (40-80) H 06/07/18 06:00 Lymphocytes 5 % (20-50) L 06/07/18 06:00 Monocytes 3 % (2-10) 06/07/18 06:00 Eosinophils 1 % (0-5) 06/07/18 06:00 Basophils 0 % (0-3) 06/07/18 06:00 Platelet Estimate ADEQUATE (NORMAL) 06/06/18 04:10 PT 10.8 SECONDS (9.5-11.5) 05/23/18 04:30 INR 1.04 (0.5-1.4) 05/23/18 04:30 PTT (Actin FS) 27.4 SECONDS (26.0-38.0) 05/23/18 04:30 Specimen Source Arterial 06/06/18 20:51 Sample Site Right Radial 06/06/18 20:51 pH 7.44 (7.35-7.45) 06/06/18 20:51 pCO2 39.0 mmHg (35.0-45.0) 06/06/18 20:51 pO2 175.0 mmHg (80.0-100.0) H 06/06/18 20:51 HCO3 26.7 mEq/L (20.0-26.0) H 06/06/18 20:51 Base Excess 2.2 mEq/L (-3.0-3.0) 06/06/18 20:51 O2 Saturation 100.0 % (92.0-100.0) 06/06/18 20:51 Ricky Test Positive 06/06/18 20:51 Vent Rate NA 06/06/18 20:51 Inspired O2 100 06/06/18 20:51 Tidal Volume NA 06/06/18 20:51 PEEP NA 06/06/18 20:51 Pressure (ins/psv/peep) NA 06/06/18 20:51 Critical Value L.[place] 06/06/18 20:51 Sodium 134 mEq/L (136-145) L 06/07/18 07:45 Potassium 4.5 mEq/L (3.5-5.1) 06/07/18 07:45 Chloride 104 mEq/L (98-107) 06/07/18 07:45 Carbon Dioxide 26.0 mEq/L (21.0-31.0) 06/07/18 07:45 Anion Gap 8.5 (7.0-16.0) 06/07/18 07:45 BUN 25 mg/dL (7-25) 06/07/18 07:45 Creatinine 0.3 mg/dL (0.6-1.2) L 06/07/18 07:45 Est GFR ( Amer) TNP 06/07/18 07:45 Est GFR (Non-Af Amer) TNP 06/07/18 07:45 BUN/Creatinine Ratio 83.3 06/07/18 07:45 Glucose 182 mg/dL (70-105) H 06/07/18 07:45 POC Glucose 181 MG/DL (70 - 105) H 06/07/18 18:26 Plasma/Ser Osmolality 259 mOsmol/kg (280-301) L 05/23/18 09:55 Whole Bld Lactic Acid 2.51 mmol/L (0.60-1.99) H* 06/02/18 09:15 Calcium 7.4 mg/dL (8.6-10.3) L 06/07/18 07:45 Phosphorus 3.3 mg/dL (2.5-5.0) 06/07/18 07:45 Magnesium 2.1 mg/dL (1.9-2.7) 06/07/18 07:45 Total Bilirubin 0.4 mg/dL (0.3-1.0) 06/07/18 07:45 Direct Bilirubin 0.14 mg/dL (0.0-0.2) 05/24/18 07:05 AST 21 U/L (13-39) 06/07/18 07:45 ALT 15 U/L (7-52) 06/07/18 07:45 Alkaline Phosphatase 57 U/L (34-104) 06/07/18 07:45 Ammonia 46 umol/L (16-53) 05/25/18 04:00 Total Protein 4.1 gm/dL (6.0-8.3) L 06/07/18 07:45 Albumin 1.8 gm/dL (3.7-5.3) L 06/07/18 07:45 Globulin 2.3 gm/dL 06/07/18 07:45 Albumin/Globulin Ratio 0.8 (1.0-1.8) L 06/07/18 07:45 Prealbumin 5 mg/dL (9-32) L 06/06/18 04:10 Triglycerides 63 mg/dL (<150) 06/06/18 04:10 Cholesterol 77 mg/dL (<200) 06/06/18 04:10 TSH 3.21 uIU/ml (0.34-5.60) 05/22/18 17:34 Urine Source CLEAN C 05/22/18 18:55 Urine Color YELLOW 05/22/18 18:55 Urine Clarity HAZY (CLEAR) 05/22/18 18:55 Urine pH 6.0 (4.6 - 8.0) 05/22/18 18:55 Ur Specific [place] >= 1.030 (1.005-1.030) 05/22/18 18:55 Urine Protein TRACE mg/dL (NEGATIVE) 05/22/18 18:55 Urine Glucose (UA) 100 mg/dL (NEGATIVE) H 05/22/18 18:55 Urine Ketones 40 mg/dL (NEGATIVE) H 05/22/18 18:55 Urine Blood MODERATE (NEGATIVE) H 05/22/18 18:55 Urine Nitrate POSITIVE (NEGATIVE) H 05/22/18 18:55 Urine Bilirubin NEGATIVE (NEGATIVE) 05/22/18 18:55 Urine Urobilinogen 0.2 E.U./dL (0.2 - 1.0) 05/22/18 18:55 Ur Leukocyte Esterase SMALL (NEGATIVE) H 05/22/18 18:55 Urine RBC 0-2 /hpf (0-5) 05/22/18 18:55 Urine WBC 6-10 /hpf (0-5) H 05/22/18 18:55 Ur Epithelial Cells OCCASIONAL /lpf (FEW) 05/22/18 18:55 Urine Bacteria 2+ /hpf (NONE SEEN) H 05/22/18 18:55 Urine Osmolality 583 mOsmol/kg 05/24/18 06:00 Ur Random Sodium 14 mmol/L 05/24/18 06:00 Vancomycin Trough 7.0 ug/mL (5-10) 06/05/18 09:00 Valproic Acid 29.3 ug/mL (50.0-100.0) L 05/22/18 17:34 Blood Type O NEGATIVE 06/01/18 14:45 Antibody Screen NEGATIVE 06/01/18 14:45 Crossmatch See Detail 06/01/18 14:45 - Physical Exam Vitals and I&O: Vital Signs Temp 99 F 06/07/18 16:00 Pulse 88 06/07/18 19:17 Resp 21 06/07/18 19:17 BP 130/84 06/07/18 18:59 Pulse Ox 97 06/07/18 19:17 Intake & Output 06/07/18 06/07/18 06/08/18 06:59 18:59 06:59 Intake Total 1208.971 6008.967 1310 Output Total 2330 1350 Balance -8677.081 2990.967 -40 Weight (lbs) 94.846 kg 95.254 kg Intake: Intake, IV Amount 2354.143 7352.967 Albumin 25% 12.5gm/50mL 50 12.5 gm In 50 ml @ 50 mls /hr IV X1 ONE Rx#: [id number] Meropenem 500 mg In 300 100 Sodium Chloride 0.9% 100 ml @ 100 mls/hr IV Q8H [facility] Rx#:[id number] Multivitamin Inj 10 ml 625.177 6937.967 Insulin Human Regular 30 units In Dextrose 70% 500 ml In Amino Acids 8.5% 500 ml In Water, Sterile 700 ml @ 80 mls/hr IV . [id number] [facility] Rx#:[id number] Norepinephrine 4 mg In 41.91 Dextrose 5% 250 ml @ Titrate IV TITR PRN Rx#: [id number] Vancomycin HCl 1.25 gm In 250 250 Sodium Chloride 0.9% 250 ml @ 165 mls/hr IV Q24H [facility] Rx#:[id number] Oral 0 TPN/PPN 960 Other 350 Output: Gastric Drainage 0 0 Drainage 530 550 Left Lower Abdomen 290 300 Right Lower Abdomen 240 250 Urine 1800 800 Other: # Bowel Movements 0 0 Weight Source Bedscale Bedscale Active Medications: Current Medications Acetaminophen (Tylenol 650mg Supp) 650 mg RC Q4H PRN PRN Reason: PAIN OR TEMP >101 Stop: 07/21/18 22:25 Albuterol/Ipratropium (Duoneb Neb) 3 ml HHN [id number] [facility] Stop: 07/22/18 18:59 Last Admin: 06/07/18 19:05 Dose: 3 ml Bisacodyl (Dulcolax 10 Mg Supp) 10 mg RC DAILY [facility] Stop: 07/22/18 12:14 Last Admin: 06/07/18 09:32 Dose: Not Given Budesonide (Pulmicort) 0.5 mg HHN BIDRT [facility] Stop: 07/22/18 18:59 Last Admin: 06/07/18 19:05 Dose: 0.5 mg Calamine/Phenol (Calmoseptine) 1 appl TP QID PRN PRN Reason: Skin Irritation Stop: 07/25/18 15:43 Last Admin: 05/26/18 17:23 Dose: 1 appl [place] Oil/[place] Balsam/Trypsin (Venelex) 1 appl TP DAILY [facility] Stop: 07/25/18 15:59 Last Admin: 06/07/18 16:00 Dose: 1 appl Divalproex Sodium (Depakote Dr) 250 mg PO BID [facility]; Protocol Stop: 07/22/18 16:59 Last Admin: 06/07/18 18:58 Dose: Not Given Gabapentin (Neurontin) 300 mg PO TID [facility] Stop: 07/22/18 13:59 Last Admin: 06/07/18 15:29 Dose: Not Given Hydromorphone HCl (Dilaudid) 1 mg IVP Q3H PRN PRN Reason: Severe Pain Stop: 07/31/18 13:19 Last Admin: 06/07/18 01:11 Dose: 1 mg Norepinephrine Bitartrate 4 mg (/ Dextrose) 254 mls @ 0 mls/hr IV TITR PRN; Protocol PRN Reason: BP MAINTENANCE (PER PROTOCOL) Stop: 07/31/18 17:54 Last Titration: 06/06/18 19:00 Dose: 0 mcg/min, 0 mls/hr Meropenem 500 mg/ Sodium (Chloride) 100 mls @ 100 mls/hr IV Q8H [facility] Stop: 07/31/18 20:59 Last Infusion: 06/07/18 15:29 Dose: Infused Vancomycin HCl 1.25 gm/ Sodium (Chloride) 250 mls @ 165 mls/hr IV Q24H [facility] Stop: 08/05/18 09:59 Last Infusion: 06/07/18 14:21 Dose: Infused Multivitamins/Minerals 10 ml/Insulin Human Regular 30 units / Dextrose/ Amino Acids/Electrolytes/ Sterile Water 1,710.3 mls @ 80 mls/hr IV .[id number] [facility] Stop: 06/25/18 15:59 Last Admin: 06/07/18 15:40 Dose: 80 mls/hr Insulin Aspart (Novolog Insulin Sliding Scale) 0 units SUBQ Q6HR [facility]; Protocol Stop: 07/22/18 11:59 Last Admin: 06/07/18 18:30 Dose: 2 units Lactobacillus Rhamnosus (Culturelle 15b) 1 each PO DAILY [facility] Stop: 07/25/18 08:59 Last Admin: 06/07/18 09:31 Dose: Not Given Lorazepam (Ativan) 0.5 mg IVP Q6H PRN PRN Reason: AGITATION Stop: 07/30/18 15:47 Last Admin: 06/06/18 02:05 Dose: 0.5 mg Miscellaneous (Probiotic Screen) 1 ea PRN PRN PRN Reason: PROTOCOL Stop: 07/24/18 14:14 Miscellaneous (Vancomycin Iv Per Pharmacy) 1 ea PRN MARIIA Stop: 07/31/18 20:44 Miscellaneous (Tpn Per Pharmacy) 1 ea PRN PRN PRN Reason: TPN PER RX Stop: 08/02/18 07:51 Morphine Sulfate (Morphine) 2 mg IVP Q3H PRN PRN Reason: Pain (Severe) Stop: 07/21/18 22:22 Last Admin: 06/07/18 19:51 Dose: 2 mg Ondansetron HCl (Zofran) 4 mg IV Q6H PRN PRN Reason: Nausea / Vomiting Stop: 07/21/18 22:24 Last Admin: 05/25/18 11:11 Dose: 4 mg Pantoprazole Sodium (Protonix) 40 mg IVP QDAC [facility] Stop: 08/02/18 08:59 Last Admin: 06/07/18 06:56 Dose: 40 mg General: No acute distress HEENT: Other (NGT) Neck: Supple Cardiovascular: Regular rate Lungs: Other (Rales) Abdomen: Soft, Drain, no Tender, no Distended - Procedures Procedures: Procedures Procedure Code Date EMERGENCY DEPT VISIT 59487 02/03/00 EXCISION OF SMALL INTESTINE, PERC ENDO APPROACH [id number] 05/22/18 EXCISION OF TRANSVERSE COLON, PERC ENDO APPROACH [id number] 05/22/18 IMMOBILIZ/WOUND ATTN NEC 93.59 04 RELEASE SMALL INTESTINE, OPEN APPROACH [id number] 05/22/18 REPAIR SMALL INTESTINE, PERCUTANEOUS ENDOSCOPIC APPROACH [id number] 05/22/18 RESPIRATORY VENTILATION, 24-96 CONSECUTIVE HOURS [id number] 05/22/18 Assessment/Plan - Problem List Patient Problems: All Active Problems Bowel obstruction (Acute) K56.609 Bowel obstruction (Acute) K56.609 PERIPHERAL TREMORS WITH DIAPHORESIS (Acute) - Assessment Assessment: Small bowel obstruction s/p EXP LAP Incarcerated vental herania s/p repair Post op respiratory failure Pnemonia Septic shock Dysphagia Mental health disorder - Plan Plan: Oxygen support Bronchodilator TPN Broad sprectum antibiotics Monitor I/O Pain control Post op care Monitor lab and vitals DVT prophylaxis LTAC DC plan in progress Nutritional Asmnt/Malnutr-PDOC - Dietary Evaluation Malnutrition Findings (Please click <Entered> for more info): Nutritional Asmnt/Malnutrition Start: 05/23/18 16: 41 Text: Status: Complete Freq: Protocol: Document 05/23/18 16:41 LCHENG (Rec: 05/23/18 16:54 [id number]) Nutritional Asmnt/Malnutrition Patient General Information Nutritional Screening High Risk Consult Diagnosis bowel obstruction Pertinent Medical Hx/Surgical Hx HTN, dyslipidemia, depression, anxiety, impulse disorder Subjective Information Consult received for elevated glucose 249. pt admitted for abdominal pain. Pt seen resting in bed at time of visit. Pt is NPO, NGT on suction. Current Diet Order/ Nutrition Support NPO Pertinent Medications novolot, piperacillin, zofran, piperacillin, nacl Pertinent Labs 05/23 Na 120, Cl 89, Cr 0.5, glucsose 241, alb 3.4 Nutritional Hx/Data Height 1.63 m Height (Calculated Centimeters) 162.6 Current Weight (lbs) 77.111 kg Weight (Calculated Kilograms) 77.1 Weight (Calculated Grams) 85795.7 [place] Body Weight 120 Body Mass Index (BMI) 29.2 Weight Status Overweight GI Symptoms GI Symptoms None Last BM not indicated Difficult in: None Skin Integrity/Comment: ecchymosis Current %PO Negligible < 25% Estimated Nutritional Goals BEE in Kcals: Using Current wt Calories/Kcals/Kg 23-27 Kcals Calculated Protein: Using Current wt Protein g/k.8-1 Protein Calculated 62-77 Fluid: ml 4942-6068 Nutritional Problem 2. Problem Problem altered nutrition related labs Etiology hyperglycemia Signs/Symptoms: glucose 241-249 1. Problem Problem inadequate food intake Etiology GI dysfunction Signs/Symptoms: pt on NPO Malnutrition Alert Is there a minimum of two criteria No selected? Query Text:Check all the applicable criteria. A minimum of two criteria are recommended for diagnosis of either severe or non-severe malnutrition. Malnutrition Related to Morbid Obesity Malnutrition related to morbid obesity No Intervention/Recommendation Comments 1. Monitor NPO status. Recommend clear liquid diet with Ensure Clear TID if diet advanced when medically appropriate 2. Monitor GI, wt, labs and skin integrity 3. F/U as high risk in 2-3 days Expected Outcomes/Goals Expected Outcomes/Goals 1. oral diet initiated in 2-3 days 2. Wt stability, skin to remain intact, labs to approach WNL.
--- NOTE | 2018-06-08 02:04 | Infectious Disease Prog Note ---
Infectious Disease Subjective - Review of Systems Service Date: 06/07/18 Subjective: cc peritonitis.pn uti hip- cx noted on iv bax d/w staff ros no fevr o/e vss chest veicular abd soft ext pulse Vital Signs - 24 hr 06/07/18 06/07/18 06/07/18 03:00 04:00 05:00 Temp 98.0 F HR 82 83 83 RR 16 19 17 BP 116/42 111/43 128/47 O2 Sat % 96 93 92 06/07/18 06/07/18 06/07/18 06:00 07:00 08:00 Temp 98.0 F 89.2 F HR 91 81 82 RR 20 17 18 BP 99/52 101/36 118/50 O2 Sat % 92 93 99 06/07/18 06/07/18 06/07/18 08:05 09:00 10:00 Temp HR 83 81 85 RR 18 21 22 BP 113/50 116/46 O2 Sat % 94 95 95 06/07/18 06/07/18 06/07/18 11:00 12:00 12:07 Temp 99 F HR 85 90 88 RR 18 19 22 BP 147/75 133/58 O2 Sat % 95 94 92 06/07/18 06/07/18 06/07/18 13:00 14:00 15:00 Temp HR 87 89 87 RR 25 21 20 BP 117/48 130/58 136/50 O2 Sat % 95 97 96 06/07/18 06/07/18 06/07/18 16:00 16:02 17:00 Temp 99 F HR 88 85 90 RR 19 21 20 BP 147/51 133/52 O2 Sat % 96 95 96 06/07/18 06/07/18 06/07/18 18:00 18:59 19:07 Temp HR 96 84 89 RR 22 23 20 BP 110/45 130/84 O2 Sat % 97 96 06/07/18 06/07/18 06/07/18 19:17 20:00 21:00 Temp 99 F 98.3 F HR 88 94 88 RR 21 16 22 BP 128/50 125/46 O2 Sat % 97 95 96 06/07/18 06/07/18 06/08/18 22:00 23:00 00:00 Temp 98 F HR 87 88 86 RR 23 14 18 BP 124/43 141/54 115/47 O2 Sat % 98 95 96 Microbiology 05/22/18 19:11 Blood - Final NO GROWTH AFTER 5 DAYS 05/24/18 17:40 Respiratory Gram Stain - Final 05/24/18 17:40 Respiratory Sputum Culture - Final 05/22/18 18:55 Urine Urine Culture - Final Escherichia Coli 05/22/18 17:00 Nares - Final NO MRSA ISOLATED 05/23/18 05:30 Sputum - Expectorated Sputum Gram Stain - Final 05/23/18 05:30 Sputum - Expectorated Sputum Sputum Culture - Final 05/23/18 12:10 Sputum - Expectorated Sputum Gram Stain - Final 05/23/18 12:10 Sputum - Expectorated Sputum Sputum Culture - Final Diagnoses SEPSIS, UNSPECIFIED ORGANISM (05/22/18) ELEVATED WHITE BLOOD CELL COUNT, UNSPECIFIED (05/22/18) SYNDROME OF INAPPROPRIATE SECRETION OF ANTIDIURETIC HORMONE (05/22/18) HYPOMAGNESEMIA (05/22/18) ACIDOSIS (05/22/18) UNSPECIFIED DEMENTIA WITHOUT BEHAVIORAL DISTURBANCE (05/22/18) ESSENTIAL (PRIMARY) HYPERTENSION (05/22/18) PNEUMONIA, UNSPECIFIED ORGANISM (05/22/18) ACUTE POSTPROCEDURAL RESPIRATORY FAILURE (05/22/18) VENTRAL HERNIA WITHOUT OBSTRUCTION OR GANGRENE (05/22/18) POSTPROC INTESTINAL OBST, 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 (05/22/18) AGE-RELATED OSTEOPOROSIS W/O CURRENT PATHOLOGICAL FRACTURE (05/22/18) URINARY TRACT INFECTION, SITE NOT SPECIFIED (05/22/18) WEAKNESS (05/22/18) DO NOT RESUSCITATE (05/22/18) Current Medications Acetaminophen (Tylenol 650mg Supp) 650 mg RC Q4H PRN PRN Reason: PAIN OR TEMP >101 Stop: 07/21/18 22:25 Albuterol/Ipratropium (Duoneb Neb) 3 ml HHN [id number] [facility] Stop: 07/22/18 18:59 Last Admin: 06/07/18 19:05 Dose: 3 ml Bisacodyl (Dulcolax 10 Mg Supp) 10 mg RC DAILY [facility] Stop: 07/22/18 12:14 Last Admin: 06/07/18 09:32 Dose: Not Given Budesonide (Pulmicort) 0.5 mg HHN BIDRT [facility] Stop: 07/22/18 18:59 Last Admin: 06/07/18 19:05 Dose: 0.5 mg Calamine/Phenol (Calmoseptine) 1 appl TP QID PRN PRN Reason: Skin Irritation Stop: 07/25/18 15:43 Last Admin: 05/26/18 17:23 Dose: 1 appl Corona Oil/Bruneian Balsam/Trypsin (Venelex) 1 appl TP DAILY [facility] Stop: 07/25/18 15:59 Last Admin: 06/07/18 16:00 Dose: 1 appl Divalproex Sodium (Depakote Dr) 250 mg PO BID [facility]; Protocol Stop: 07/22/18 16:59 Last Admin: 06/07/18 18:58 Dose: Not Given Gabapentin (Neurontin) 300 mg PO TID [facility] Stop: 07/22/18 13:59 Last Admin: 06/07/18 21:12 Dose: 300 mg Hydromorphone HCl (Dilaudid) 1 mg IVP Q3H PRN PRN Reason: Severe Pain Stop: 07/31/18 13:19 Last Admin: 06/07/18 23:19 Dose: 1 mg Norepinephrine Bitartrate 4 mg (/ Dextrose) 254 mls @ 0 mls/hr IV TITR PRN; Protocol PRN Reason: BP MAINTENANCE (PER PROTOCOL) Stop: 07/31/18 17:54 Last Titration: 06/06/18 19:00 Dose: 0 mcg/min, 0 mls/hr Meropenem 500 mg/ Sodium (Chloride) 100 mls @ 100 mls/hr IV Q8H [facility] Stop: 07/31/18 20:59 Last Infusion: 06/07/18 21:36 Dose: Infused Vancomycin HCl 1.25 gm/ Sodium (Chloride) 250 mls @ 165 mls/hr IV Q24H [facility] Stop: 08/05/18 09:59 Last Infusion: 06/07/18 14:21 Dose: Infused Multivitamins/Minerals 10 ml/Insulin Human Regular 30 units / Dextrose/ Amino Acids/Electrolytes/ Sterile Water 1,710.3 mls @ 80 mls/hr IV .[id number] [facility] Stop: 06/25/18 15:59 Last Admin: 06/07/18 15:40 Dose: 80 mls/hr Insulin Aspart (Novolog Insulin Sliding Scale) 0 units SUBQ Q6HR [facility]; Protocol Stop: 07/22/18 11:59 Last Admin: 06/07/18 23:22 Dose: 2 units Lactobacillus Rhamnosus (Culturelle 15b) 1 each PO DAILY [facility] Stop: 07/25/18 08:59 Last Admin: 06/07/18 09:31 Dose: Not Given Lorazepam (Ativan) 0.5 mg IVP Q6H PRN PRN Reason: AGITATION Stop: 07/30/18 15:47 Last Admin: 06/06/18 02:05 Dose: 0.5 mg Miscellaneous (Probiotic Screen) 1 ea PRN PRN PRN Reason: PROTOCOL Stop: 07/24/18 14:14 Miscellaneous (Vancomycin Iv Per Pharmacy) 1 ea PRN [facility] Stop: 07/31/18 20:44 Miscellaneous (Tpn Per Pharmacy) 1 [facility] PRN PRN PRN Reason: TPN PER RX Stop: 08/02/18 07:51 Morphine Sulfate (Morphine) 2 mg IVP Q3H PRN PRN Reason: Pain (Severe) Stop: 07/21/18 22:22 Last Admin: 06/07/18 19:51 Dose: 2 mg Ondansetron HCl (Zofran) 4 mg IV Q6H PRN PRN Reason: Nausea / Vomiting Stop: 07/21/18 22:24 Last Admin: 05/25/18 11:11 Dose: 4 mg Pantoprazole Sodium (Protonix) 40 mg IVP QDAC [facility] Stop: 08/02/18 08:59 Last Admin: 06/07/18 06:56 Dose: 40 mg Infectious Disease Objective - Results Result Diagrams: 06/07/18 06:00 06/07/18 07:45 Recent Labs: Laboratory Last Values WBC 10.8 Th/cmm (4.8-10.8) 06/07/18 06:00 Corrected WBC (auto) 3.0 Th/cmm (4.8-10.8) L 05/26/18 04:00 RBC 3.18 Mil/cmm (3.80-5.20) L 06/07/18 06:00 Hgb 9.6 gm/dL (12-16) L 06/07/18 06:00 Hct 27.6 % (41.0-60) L 06/07/18 06:00 MCV 86.7 fl (81-100) 06/07/18 06:00 MCH 30.1 pg (27.0-31.0) 06/07/18 06:00 MCHC Differential 34.7 pg (28.0-36.0) 06/07/18 06:00 RDW 13.9 % (11.5-20.0) 06/07/18 06:00 Plt Count 191 Th/cmm (150-400) 06/07/18 06:00 MPV 8.5 fl 06/07/18 06:00 Add Manual Diff YES 06/07/18 06:00 Neutrophils % 74.6 % (40.0-80.0) 06/01/18 04:30 Band Neutrophils % 4 % (0-10) 06/07/18 06:00 Lymphocytes % 7.9 % (20.0-50.0) L 06/01/18 04:30 Monocytes % 15.9 % (2.0-10.0) H 06/01/18 04:30 Eosinophils % 1.5 % (0.0-5.0) 06/01/18 04:30 Basophils % 0.1 % (0.0-2.0) 06/01/18 04:30 Neutrophils (Manual) 87 % (40-80) H 06/07/18 06:00 Lymphocytes 5 % (20-50) L 06/07/18 06:00 Monocytes 3 % (2-10) 06/07/18 06:00 Eosinophils 1 % (0-5) 06/07/18 06:00 Basophils 0 % (0-3) 06/07/18 06:00 Platelet Estimate ADEQUATE (NORMAL) 06/06/18 04:10 PT 10.8 SECONDS (9.5-11.5) 05/23/18 04:30 INR 1.04 (0.5-1.4) 05/23/18 04:30 PTT (Actin FS) 27.4 SECONDS (26.0-38.0) 05/23/18 04:30 Specimen Source Arterial 06/06/18 20:51 Sample Site Right Radial 06/06/18 20:51 pH 7.44 (7.35-7.45) 06/06/18 20:51 pCO2 39.0 mmHg (35.0-45.0) 06/06/18 20:51 pO2 175.0 mmHg (80.0-100.0) H 06/06/18 20:51 HCO3 26.7 mEq/L (20.0-26.0) H 06/06/18 20:51 Base Excess 2.2 mEq/L (-3.0-3.0) 06/06/18 20:51 O2 Saturation 100.0 % (92.0-100.0) 06/06/18 20:51 Ricky Test Positive 06/06/18 20:51 Vent Rate NA 06/06/18 20:51 Inspired O2 100 06/06/18 20:51 Tidal Volume NA 06/06/18 20:51 PEEP NA 06/06/18 20:51 Pressure (ins/psv/peep) NA 06/06/18 20:51 Critical Value L.Lupea 06/06/18 20:51 Sodium 134 mEq/L (136-145) L 06/07/18 07:45 Potassium 4.5 mEq/L (3.5-5.1) 06/07/18 07:45 Chloride 104 mEq/L (98-107) 06/07/18 07:45 Carbon Dioxide 26.0 mEq/L (21.0-31.0) 06/07/18 07:45 Anion Gap 8.5 (7.0-16.0) 06/07/18 07:45 BUN 25 mg/dL (7-25) 06/07/18 07:45 Creatinine 0.3 mg/dL (0.6-1.2) L 06/07/18 07:45 Est GFR ( Amer) TNP 06/07/18 07:45 Est GFR (Non-Af Amer) TNP 06/07/18 07:45 BUN/Creatinine Ratio 83.3 06/07/18 07:45 Glucose 182 mg/dL (70-105) H 06/07/18 07:45 POC Glucose 190 MG/DL (70 - 105) H 06/07/18 23:21 Plasma/Ser Osmolality 259 mOsmol/kg (280-301) L 05/23/18 09:55 Whole Bld Lactic Acid 2.51 mmol/L (0.60-1.99) H* 06/02/18 09:15 Calcium 7.4 mg/dL (8.6-10.3) L 06/07/18 07:45 Phosphorus 3.3 mg/dL (2.5-5.0) 06/07/18 07:45 Magnesium 2.1 mg/dL (1.9-2.7) 06/07/18 07:45 Total Bilirubin 0.4 mg/dL (0.3-1.0) 06/07/18 07:45 Direct Bilirubin 0.14 mg/dL (0.0-0.2) 05/24/18 07:05 AST 21 U/L (13-39) 06/07/18 07:45 ALT 15 U/L (7-52) 06/07/18 07:45 Alkaline Phosphatase 57 U/L (34-104) 06/07/18 07:45 Ammonia 46 umol/L (16-53) 05/25/18 04:00 Total Protein 4.1 gm/dL (6.0-8.3) L 06/07/18 07:45 Albumin 1.8 gm/dL (3.7-5.3) L 06/07/18 07:45 Globulin 2.3 gm/dL 06/07/18 07:45 Albumin/Globulin Ratio 0.8 (1.0-1.8) L 06/07/18 07:45 Prealbumin 5 mg/dL (9-32) L 06/06/18 04:10 Triglycerides 63 mg/dL (<150) 06/06/18 04:10 Cholesterol 77 mg/dL (<200) 06/06/18 04:10 TSH 3.21 uIU/ml (0.34-5.60) 05/22/18 17:34 Urine Source CLEAN C 05/22/18 18:55 Urine Color YELLOW 05/22/18 18:55 Urine Clarity HAZY (CLEAR) 05/22/18 18:55 Urine pH 6.0 (4.6 - 8.0) 05/22/18 18:55 Ur Specific Eloy >= 1.030 (1.005-1.030) 05/22/18 18:55 Urine Protein TRACE mg/dL (NEGATIVE) 05/22/18 18:55 Urine Glucose (UA) 100 mg/dL (NEGATIVE) H 05/22/18 18:55 Urine Ketones 40 mg/dL (NEGATIVE) H 05/22/18 18:55 Urine Blood MODERATE (NEGATIVE) H 05/22/18 18:55 Urine Nitrate POSITIVE (NEGATIVE) H 05/22/18 18:55 Urine Bilirubin NEGATIVE (NEGATIVE) 05/22/18 18:55 Urine Urobilinogen 0.2 E.U./dL (0.2 - 1.0) 05/22/18 18:55 Ur Leukocyte Esterase SMALL (NEGATIVE) H 05/22/18 18:55 Urine RBC 0-2 /hpf (0-5) 05/22/18 18:55 Urine WBC 6-10 /hpf (0-5) H 05/22/18 18:55 Ur Epithelial Cells OCCASIONAL /lpf (FEW) 05/22/18 18:55 Urine Bacteria 2+ /hpf (NONE SEEN) H 05/22/18 18:55 Urine Osmolality 583 mOsmol/kg 05/24/18 06:00 Ur Random Sodium 14 mmol/L 05/24/18 06:00 Vancomycin Trough 7.0 ug/mL (5-10) 06/05/18 09:00 Valproic Acid 29.3 ug/mL (50.0-100.0) L 05/22/18 17:34 Blood Type O NEGATIVE 06/01/18 14:45 Antibody Screen NEGATIVE 06/01/18 14:45 Crossmatch See Detail 06/01/18 14:45 - Physical Exam Vitals and I&O: Vital Signs Temp 98 F 06/08/18 00:00 Pulse 86 06/08/18 00:00 Resp 18 06/08/18 00:00 BP 115/47 06/08/18 00:00 Pulse Ox 96 06/08/18 00:00 Intake & Output 06/07/18 06/07/18 06/08/18 06:59 18:59 06:59 Intake Total 0093.483 7975.967 1410 Output Total 2330 1350 Balance -0332.700 6952.967 60 Weight (lbs) 94.846 kg 95.254 kg Intake: Intake, IV Amount 9516.989 2916.967 100 Albumin 25% 12.5gm/50mL 50 12.5 gm In 50 ml @ 50 mls /hr IV X1 ONE Rx#: [id number] Meropenem 500 mg In 300 100 100 Sodium Chloride 0.9% 100 ml @ 100 mls/hr IV Q8H [facility] Rx#:[id number] Multivitamin Inj 10 ml 068.354 0039.967 Insulin Human Regular 30 units In Dextrose 70% 500 ml In Amino Acids 8.5% 500 ml In Water, Sterile 700 ml @ 80 mls/hr IV . [id number] [facility] Rx#:[id number] Norepinephrine 4 mg In 41.91 Dextrose 5% 250 ml @ Titrate IV TITR PRN Rx#: [id number] Vancomycin HCl 1.25 gm In 250 250 Sodium Chloride 0.9% 250 ml @ 165 mls/hr IV Q24H [facility] Rx#:[id number] Oral 0 TPN/PPN 960 Other 350 Output: Gastric Drainage 0 0 Drainage 530 550 Left Lower Abdomen 290 300 Right Lower Abdomen 240 250 Urine 1800 800 Other: # Bowel Movements 0 0 Weight Source Bedscale Bedscale Active Medications: Current Medications Acetaminophen (Tylenol 650mg Supp) 650 mg RC Q4H PRN PRN Reason: PAIN OR TEMP >101 Stop: 07/21/18 22:25 Albuterol/Ipratropium (Duoneb Neb) 3 ml HHN [id number] [facility] Stop: 07/22/18 18:59 Last Admin: 06/07/18 19:05 Dose: 3 ml Bisacodyl (Dulcolax 10 Mg Supp) 10 mg RC DAILY [facility] Stop: 07/22/18 12:14 Last Admin: 06/07/18 09:32 Dose: Not Given Budesonide (Pulmicort) 0.5 mg HHN BIDRT [facility] Stop: 07/22/18 18:59 Last Admin: 06/07/18 19:05 Dose: 0.5 mg Calamine/Phenol (Calmoseptine) 1 appl TP QID PRN PRN Reason: Skin Irritation Stop: 07/25/18 15:43 Last Admin: 05/26/18 17:23 Dose: 1 appl Corona Oil/Bruneian Balsam/Trypsin (Venelex) 1 appl TP DAILY [facility] Stop: 07/25/18 15:59 Last Admin: 06/07/18 16:00 Dose: 1 appl Divalproex Sodium (Depakote Dr) 250 mg PO BID [facility]; Protocol Stop: 07/22/18 16:59 Last Admin: 06/07/18 18:58 Dose: Not Given Gabapentin (Neurontin) 300 mg PO TID [facility] Stop: 07/22/18 13:59 Last Admin: 01/08/19 21:12 Dose: 300 mg Hydromorphone HCl (Dilaudid) 1 mg IVP Q3H PRN PRN Reason: Severe Pain Stop: 07/31/18 13:19 Last Admin: 06/07/18 23:19 Dose: 1 mg Norepinephrine Bitartrate 4 mg (/ Dextrose) 254 mls @ 0 mls/hr IV TITR PRN; Protocol PRN Reason: BP MAINTENANCE (PER PROTOCOL) Stop: 07/31/18 17:54 Last Titration: 06/06/18 19:00 Dose: 0 mcg/min, 0 mls/hr Meropenem 500 mg/ Sodium (Chloride) 100 mls @ 100 mls/hr IV Q8H [facility] Stop: 07/31/18 20:59 Last Infusion: 06/07/18 21:36 Dose: Infused Vancomycin HCl 1.25 gm/ Sodium (Chloride) 250 mls @ 165 mls/hr IV Q24H [facility] Stop: 08/05/18 09:59 Last Infusion: 06/07/18 14:21 Dose: Infused Multivitamins/Minerals 10 ml/Insulin Human Regular 30 units / Dextrose/ Amino Acids/Electrolytes/ Sterile Water 1,710.3 mls @ 80 mls/hr IV .[id number] [facility] Stop: 06/25/18 15:59 Last Admin: 06/07/18 15:40 Dose: 80 mls/hr Insulin Aspart (Novolog Insulin Sliding Scale) 0 units SUBQ Q6HR [facility]; Protocol Stop: 07/22/18 11:59 Last Admin: 06/07/18 23:22 Dose: 2 units Lactobacillus Rhamnosus (Culturelle 15b) 1 each PO DAILY [facility] Stop: 07/25/18 08:59 Last Admin: 06/07/18 09:31 Dose: Not Given Lorazepam (Ativan) 0.5 mg IVP Q6H PRN PRN Reason: AGITATION Stop: 07/30/18 15:47 Last Admin: 06/06/18 02:05 Dose: 0.5 mg Miscellaneous (Probiotic Screen) 1 ea [facility] PRN PRN PRN Reason: PROTOCOL Stop: 07/24/18 14:14 Miscellaneous (Vancomycin Iv Per Pharmacy) 1 ea [facility] PRN [facility] Stop: 07/31/18 20:44 Miscellaneous (Tpn Per Pharmacy) 1 ea [facility] PRN PRN PRN Reason: TPN PER RX Stop: 08/02/18 07:51 Morphine Sulfate (Morphine) 2 mg IVP Q3H PRN PRN Reason: Pain (Severe) Stop: 07/21/18 22:22 Last Admin: 06/07/18 19:51 Dose: 2 mg Ondansetron HCl (Zofran) 4 mg IV Q6H PRN PRN Reason: Nausea / Vomiting Stop: 07/21/18 22:24 Last Admin: 05/25/18 11:11 Dose: 4 mg Pantoprazole Sodium (Protonix) 40 mg IVP QDAC [facility] Stop: 08/02/18 08:59 Last Admin: 06/07/18 06:56 Dose: 40 mg - Procedures Procedures: Procedures Procedure Code Date EMERGENCY DEPT VISIT 73301 02/03/00 EXCISION OF SMALL INTESTINE, PERC ENDO APPROACH [id number] 05/22/18 EXCISION OF TRANSVERSE COLON, PERC ENDO APPROACH [id number] 05/22/18 IMMOBILIZ/WOUND ATTN NEC 93.59 08/01/01 RELEASE SMALL INTESTINE, OPEN APPROACH [id number] 05/22/18 REPAIR SMALL INTESTINE, PERCUTANEOUS ENDOSCOPIC APPROACH [id number] 05/22/18 RESPIRATORY VENTILATION, 24-96 CONSECUTIVE HOURS [id number] 05/22/18 Infectious Disease Assmt/Plan - Problem List Patient Problems: All Active Problems Bowel obstruction (Acute) K56.609 Bowel obstruction (Acute) K56.609 PERIPHERAL TREMORS WITH DIAPHORESIS (Acute) Nutritional Asmnt/Malnutr-PDOC - Dietary Evaluation Malnutrition Findings (Please click <Entered> for more info): Nutritional Asmnt/Malnutrition Start: 05/23/18 16: 41 Text: Status: Complete Freq: Protocol: Document 05/23/18 16:41 LCHENG (Rec: 05/23/18 16:54 LCHENG [id number]) Nutritional Asmnt/Malnutrition Patient General Information Nutritional Screening High Risk Consult Diagnosis bowel obstruction Pertinent Medical Hx/Surgical Hx HTN, dyslipidemia, depression, anxiety, impulse disorder Subjective Information Consult received for elevated glucose 249. pt admitted for abdominal pain. Pt seen resting in bed at time of visit. Pt is NPO, NGT on suction. Current Diet Order/ Nutrition Support NPO Pertinent Medications novolot, piperacillin, zofran, piperacillin, nacl Pertinent Labs 05/23 Na 120, Cl 89, Cr 0.5, glucsose 241, alb 3.4 Nutritional Hx/Data Height 1.63 m Height (Calculated Centimeters) 162.6 Current Weight (lbs) 77.111 kg Weight (Calculated Kilograms) 77.1 Weight (Calculated Grams) 01612.7 [place] Body Weight 120 Body Mass Index (BMI) 29.2 Weight Status Overweight GI Symptoms GI Symptoms None Last BM not indicated Difficult in: None Skin Integrity/Comment: ecchymosis Current %PO Negligible < 25% Estimated Nutritional Goals BEE in Kcals: Using Current wt Calories/Kcals/Kg 23-27 Kcals Calculated Protein: Using Current wt Protein g/k.8-1 Protein Calculated 62-77 Fluid: ml Nutritional Problem 2. Problem Problem altered nutrition related labs Etiology hyperglycemia Signs/Symptoms: glucose 241-249 1. Problem Problem inadequate food intake Etiology GI dysfunction Signs/Symptoms: pt on NPO Malnutrition Alert Is there a minimum of two criteria No selected? Query Text:Check all the applicable criteria. A minimum of two criteria are recommended for diagnosis of either severe or non-severe malnutrition. Malnutrition Related to Morbid Obesity Malnutrition related to morbid obesity No Intervention/Recommendation Comments 1. Monitor NPO status. Recommend clear liquid diet with Ensure Clear TID if diet advanced when medically appropriate 2. Monitor GI, wt, labs and skin integrity 3. F/U as high risk in 2-3 days Expected Outcomes/Goals Expected Outcomes/Goals 1. oral diet initiated in 2-3 days 2. Wt stability, skin to remain intact, labs to approach WNL.
--- NOTE | 2018-06-08 02:20 | Infectious Disease Prog Note ---
Infectious Disease Subjective - Review of Systems Service Date: 06/07/18 Subjective: cc peritonitis.pn uti hip- cx noted on iv bax d/w staff ros no fevr o/e vss chest veicular abd soft ext pulse Vital Signs - 24 hr 06/07/18 06/07/18 06/07/18 03:00 04:00 05:00 Temp 98.0 F HR 82 83 83 RR 16 19 17 BP 116/42 111/43 128/47 O2 Sat % 96 93 92 06/07/18 06/07/18 06/07/18 06:00 07:00 08:00 Temp 98.0 F 89.2 F HR 91 81 82 RR 20 17 18 BP 99/52 101/36 118/50 O2 Sat % 92 93 99 06/07/18 06/07/18 06/07/18 08:05 09:00 10:00 Temp HR 83 81 85 RR 18 21 22 BP 113/50 116/46 O2 Sat % 94 95 95 06/07/18 06/07/18 06/07/18 11:00 12:00 12:07 Temp 99 F HR 85 90 88 RR 18 19 22 BP 147/75 133/58 O2 Sat % 95 94 92 06/07/18 06/07/18 06/07/18 13:00 14:00 15:00 Temp HR 87 89 87 RR 25 21 20 BP 117/48 130/58 136/50 O2 Sat % 95 97 96 06/07/18 06/07/18 06/07/18 16:00 16:02 17:00 Temp 99 F HR 88 85 90 RR 19 21 20 BP 147/51 133/52 O2 Sat % 96 95 96 06/07/18 06/07/18 06/07/18 18:00 18:59 19:07 Temp HR 96 84 89 RR 22 23 20 BP 110/45 130/84 O2 Sat % 97 96 06/07/18 06/07/18 06/07/18 19:17 20:00 21:00 Temp 99 F 98.3 F HR 88 94 88 RR 21 16 22 BP 128/50 125/46 O2 Sat % 97 95 96 06/07/18 06/07/18 06/08/18 22:00 23:00 00:00 Temp 98 F HR 87 88 86 RR 23 14 18 BP 124/43 141/54 115/47 O2 Sat % 98 95 96 Microbiology 05/22/18 19:11 Blood - Final NO GROWTH AFTER 5 DAYS 05/24/18 17:40 Respiratory Gram Stain - Final 05/24/18 17:40 Respiratory Sputum Culture - Final 05/22/18 18:55 Urine Urine Culture - Final Escherichia Coli 05/22/18 17:00 Nares - Final NO MRSA ISOLATED 05/23/18 05:30 Sputum - Expectorated Sputum Gram Stain - Final 05/23/18 05:30 Sputum - Expectorated Sputum Sputum Culture - Final 05/23/18 12:10 Sputum - Expectorated Sputum Gram Stain - Final 05/23/18 12:10 Sputum - Expectorated Sputum Sputum Culture - Final Diagnoses SEPSIS, UNSPECIFIED ORGANISM (05/22/18) ELEVATED WHITE BLOOD CELL COUNT, UNSPECIFIED (05/22/18) SYNDROME OF INAPPROPRIATE SECRETION OF ANTIDIURETIC HORMONE (05/22/18) HYPOMAGNESEMIA (05/22/18) ACIDOSIS (05/22/18) UNSPECIFIED DEMENTIA WITHOUT BEHAVIORAL DISTURBANCE (05/22/18) ESSENTIAL (PRIMARY) HYPERTENSION (05/22/18) PNEUMONIA, UNSPECIFIED ORGANISM (05/22/18) ACUTE POSTPROCEDURAL RESPIRATORY FAILURE (05/22/18) VENTRAL HERNIA WITHOUT OBSTRUCTION OR GANGRENE (05/22/18) POSTPROC INTESTINAL OBST, 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 (05/22/18) AGE-RELATED OSTEOPOROSIS W/O CURRENT PATHOLOGICAL FRACTURE (05/22/18) URINARY TRACT INFECTION, SITE NOT SPECIFIED (05/22/18) WEAKNESS (05/22/18) DO NOT RESUSCITATE (05/22/18) Current Medications Acetaminophen (Tylenol 650mg Supp) 650 mg RC Q4H PRN PRN Reason: PAIN OR TEMP >101 Stop: 07/21/18 22:25 Albuterol/Ipratropium (Duoneb Neb) 3 ml HHN [id number] [facility] Stop: 07/22/18 18:59 Last Admin: 06/07/18 19:05 Dose: 3 ml Bisacodyl (Dulcolax 10 Mg Supp) 10 mg RC DAILY [facility] Stop: 07/22/18 12:14 Last Admin: 06/07/18 09:32 Dose: Not Given Budesonide (Pulmicort) 0.5 mg HHN BIDRT [facility] Stop: 07/22/18 18:59 Last Admin: 06/07/18 19:05 Dose: 0.5 mg Calamine/Phenol (Calmoseptine) 1 appl TP QID PRN PRN Reason: Skin Irritation Stop: 07/25/18 15:43 Last Admin: 05/26/18 17:23 Dose: 1 appl [place] Oil/French Balsam/Trypsin (Venelex) 1 appl TP DAILY [facility] Stop: 07/25/18 15:59 Last Admin: 06/07/18 16:00 Dose: 1 appl Divalproex Sodium (Depakote Dr) 250 mg PO BID [facility]; Protocol Stop: 07/22/18 16:59 Last Admin: 06/07/18 18:58 Dose: Not Given Gabapentin (Neurontin) 300 mg PO TID [facility] Stop: 07/22/18 13:59 Last Admin: 06/07/18 21:12 Dose: 300 mg Hydromorphone HCl (Dilaudid) 1 mg IVP Q3H PRN PRN Reason: Severe Pain Stop: 07/31/18 13:19 Last Admin: 06/07/18 23:19 Dose: 1 mg Norepinephrine Bitartrate 4 mg (/ Dextrose) 254 mls @ 0 mls/hr IV TITR PRN; Protocol PRN Reason: BP MAINTENANCE (PER PROTOCOL) Stop: 07/31/18 17:54 Last Titration: 06/06/18 19:00 Dose: 0 mcg/min, 0 mls/hr Meropenem 500 mg/ Sodium (Chloride) 100 mls @ 100 mls/hr IV Q8H [facility] Stop: 07/31/18 20:59 Last Infusion: 06/07/18 21:36 Dose: Infused Vancomycin HCl 1.25 gm/ Sodium (Chloride) 250 mls @ 165 mls/hr IV Q24H [facility] Stop: 08/05/18 09:59 Last Infusion: 06/07/18 14:21 Dose: Infused Multivitamins/Minerals 10 ml/Insulin Human Regular 30 units / Dextrose/ Amino Acids/Electrolytes/ Sterile Water 1,710.3 mls @ 80 mls/hr IV .[id number] [facility] Stop: 06/25/18 15:59 Last Admin: 06/07/18 15:40 Dose: 80 mls/hr Insulin Aspart (Novolog Insulin Sliding Scale) 0 units SUBQ Q6HR [facility]; Protocol Stop: 07/22/18 11:59 Last Admin: 06/07/18 23:22 Dose: 2 units Lactobacillus Rhamnosus (Culturelle 15b) 1 each PO DAILY [facility] Stop: 07/25/18 08:59 Last Admin: 06/07/18 09:31 Dose: Not Given Lorazepam (Ativan) 0.5 mg IVP Q6H PRN PRN Reason: AGITATION Stop: 07/30/18 15:47 Last Admin: 06/06/18 02:05 Dose: 0.5 mg Miscellaneous (Probiotic Screen) 1 ea PRN PRN PRN Reason: PROTOCOL Stop: 07/24/18 14:14 Miscellaneous (Vancomycin Iv Per Pharmacy) 1 [facility] PRN MARIIA Stop: 07/31/18 20:44 Miscellaneous (Tpn Per Pharmacy) 1 [facility] PRN PRN PRN Reason: TPN PER RX Stop: 08/02/18 07:51 Morphine Sulfate (Morphine) 2 mg IVP Q3H PRN PRN Reason: Pain (Severe) Stop: 07/21/18 22:22 Last Admin: 06/07/18 19:51 Dose: 2 mg Ondansetron HCl (Zofran) 4 mg IV Q6H PRN PRN Reason: Nausea / Vomiting Stop: 07/21/18 22:24 Last Admin: 05/25/18 11:11 Dose: 4 mg Pantoprazole Sodium (Protonix) 40 mg IVP QDAC [facility] Stop: 08/02/18 08:59 Last Admin: 06/07/18 06:56 Dose: 40 mg Diagnoses SEPSIS, UNSPECIFIED ORGANISM (05/22/18) ELEVATED WHITE BLOOD CELL COUNT, UNSPECIFIED (05/22/18) SYNDROME OF INAPPROPRIATE SECRETION OF ANTIDIURETIC HORMONE (05/22/18) HYPOMAGNESEMIA (05/22/18) ACIDOSIS (05/22/18) UNSPECIFIED DEMENTIA WITHOUT BEHAVIORAL DISTURBANCE (05/22/18) ESSENTIAL (PRIMARY) HYPERTENSION (05/22/18) PNEUMONIA, UNSPECIFIED ORGANISM (05/22/18) ACUTE POSTPROCEDURAL RESPIRATORY FAILURE (05/22/18) VENTRAL HERNIA WITHOUT OBSTRUCTION OR GANGRENE (05/22/18) POSTPROC INTESTINAL OBST, 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 (05/22/18) AGE-RELATED OSTEOPOROSIS W/O CURRENT PATHOLOGICAL FRACTURE (05/22/18) URINARY TRACT INFECTION, SITE NOT SPECIFIED (05/22/18) WEAKNESS (05/22/18) DO NOT RESUSCITATE (05/22/18) Infectious Disease Objective - Results Result Diagrams: 06/07/18 06:00 06/07/18 07:45 Recent Labs: Laboratory Last Values WBC 10.8 Th/cmm (4.8-10.8) 06/07/18 06:00 Corrected WBC (auto) 3.0 Th/cmm (4.8-10.8) L 05/26/18 04:00 RBC 3.18 Mil/cmm (3.80-5.20) L 06/07/18 06:00 Hgb 9.6 gm/dL (12-16) L 06/07/18 06:00 Hct 27.6 % (41.0-60) L 06/07/18 06:00 MCV 86.7 fl (81-100) 06/07/18 06:00 MCH 30.1 pg (27.0-31.0) 06/07/18 06:00 MCHC Differential 34.7 pg (28.0-36.0) 06/07/18 06:00 RDW 13.9 % (11.5-20.0) 06/07/18 06:00 Plt Count 191 Th/cmm (150-400) 06/07/18 06:00 MPV 8.5 fl 06/07/18 06:00 Add Manual Diff YES 06/07/18 06:00 Neutrophils % 74.6 % (40.0-80.0) 06/01/18 04:30 Band Neutrophils % 4 % (0-10) 06/07/18 06:00 Lymphocytes % 7.9 % (20.0-50.0) L 06/01/18 04:30 Monocytes % 15.9 % (2.0-10.0) H 06/01/18 04:30 Eosinophils % 1.5 % (0.0-5.0) 06/01/18 04:30 Basophils % 0.1 % (0.0-2.0) 06/01/18 04:30 Neutrophils (Manual) 87 % (40-80) H 06/07/18 06:00 Lymphocytes 5 % (20-50) L 06/07/18 06:00 Monocytes 3 % (2-10) 06/07/18 06:00 Eosinophils 1 % (0-5) 06/07/18 06:00 Basophils 0 % (0-3) 06/07/18 06:00 Platelet Estimate ADEQUATE (NORMAL) 06/06/18 04:10 PT 10.8 SECONDS (9.5-11.5) 05/23/18 04:30 INR 1.04 (0.5-1.4) 05/23/18 04:30 PTT (Actin FS) 27.4 SECONDS (26.0-38.0) 05/23/18 04:30 Specimen Source Arterial 06/06/18 20:51 Sample Site Right Radial 06/06/18 20:51 pH 7.44 (7.35-7.45) 06/06/18 20:51 pCO2 39.0 mmHg (35.0-45.0) 06/06/18 20:51 pO2 175.0 mmHg (80.0-100.0) H 06/06/18 20:51 HCO3 26.7 mEq/L (20.0-26.0) H 06/06/18 20:51 Base Excess 2.2 mEq/L (-3.0-3.0) 06/06/18 20:51 O2 Saturation 100.0 % (92.0-100.0) 06/06/18 20:51 Ricky Test Positive 06/06/18 20:51 Vent Rate NA 06/06/18 20:51 Inspired O2 100 06/06/18 20:51 Tidal Volume NA 06/06/18 20:51 PEEP NA 06/06/18 20:51 Pressure (ins/psv/peep) NA 06/06/18 20:51 Critical Value L.[place] 06/06/18 20:51 Sodium 134 mEq/L (136-145) L 06/07/18 07:45 Potassium 4.5 mEq/L (3.5-5.1) 06/07/18 07:45 Chloride 104 mEq/L (98-107) 06/07/18 07:45 Carbon Dioxide 26.0 mEq/L (21.0-31.0) 06/07/18 07:45 Anion Gap 8.5 (7.0-16.0) 06/07/18 07:45 BUN 25 mg/dL (7-25) 06/07/18 07:45 Creatinine 0.3 mg/dL (0.6-1.2) L 06/07/18 07:45 Est GFR ( Amer) TNP 06/07/18 07:45 Est GFR (Non-Af Amer) TNP 06/07/18 07:45 BUN/Creatinine Ratio 83.3 06/07/18 07:45 Glucose 182 mg/dL (70-105) H 06/07/18 07:45 POC Glucose 190 MG/DL (70 - 105) H 06/07/18 23:21 Plasma/Ser Osmolality 259 mOsmol/kg (280-301) L 05/23/18 09:55 Whole Bld Lactic Acid 2.51 mmol/L (0.60-1.99) H* 06/02/18 09:15 Calcium 7.4 mg/dL (8.6-10.3) L 06/07/18 07:45 Phosphorus 3.3 mg/dL (2.5-5.0) 06/07/18 07:45 Magnesium 2.1 mg/dL (1.9-2.7) 06/07/18 07:45 Total Bilirubin 0.4 mg/dL (0.3-1.0) 06/07/18 07:45 Direct Bilirubin 0.14 mg/dL (0.0-0.2) 05/24/18 07:05 AST 21 U/L (13-39) 06/07/18 07:45 ALT 15 U/L (7-52) 06/07/18 07:45 Alkaline Phosphatase 57 U/L (34-104) 06/07/18 07:45 Ammonia 46 umol/L (16-53) 05/25/18 04:00 Total Protein 4.1 gm/dL (6.0-8.3) L 06/07/18 07:45 Albumin 1.8 gm/dL (3.7-5.3) L 06/07/18 07:45 Globulin 2.3 gm/dL 06/07/18 07:45 Albumin/Globulin Ratio 0.8 (1.0-1.8) L 06/07/18 07:45 Prealbumin 5 mg/dL (9-32) L 06/06/18 04:10 Triglycerides 63 mg/dL (<150) 06/06/18 04:10 Cholesterol 77 mg/dL (<200) 06/06/18 04:10 TSH 3.21 uIU/ml (0.34-5.60) 05/22/18 17:34 Urine Source CLEAN C 05/22/18 18:55 Urine Color YELLOW 05/22/18 18:55 Urine Clarity HAZY (CLEAR) 05/22/18 18:55 Urine pH 6.0 (4.6 - 8.0) 05/22/18 18:55 Ur Specific [place] >= 1.030 (1.005-1.030) 05/22/18 18:55 Urine Protein TRACE mg/dL (NEGATIVE) 05/22/18 18:55 Urine Glucose (UA) 100 mg/dL (NEGATIVE) H 05/22/18 18:55 Urine Ketones 40 mg/dL (NEGATIVE) H 05/22/18 18:55 Urine Blood MODERATE (NEGATIVE) H 05/22/18 18:55 Urine Nitrate POSITIVE (NEGATIVE) H 05/22/18 18:55 Urine Bilirubin NEGATIVE (NEGATIVE) 05/22/18 18:55 Urine Urobilinogen 0.2 E.U./dL (0.2 - 1.0) 05/22/18 18:55 Ur Leukocyte Esterase SMALL (NEGATIVE) H 05/22/18 18:55 Urine RBC 0-2 /hpf (0-5) 05/22/18 18:55 Urine WBC 6-10 /hpf (0-5) H 05/22/18 18:55 Ur Epithelial Cells OCCASIONAL /lpf (FEW) 05/22/18 18:55 Urine Bacteria 2+ /hpf (NONE SEEN) H 05/22/18 18:55 Urine Osmolality 583 mOsmol/kg 05/24/18 06:00 Ur Random Sodium 14 mmol/L 05/24/18 06:00 Vancomycin Trough 7.0 ug/mL (5-10) 06/05/18 09:00 Valproic Acid 29.3 ug/mL (50.0-100.0) L 05/22/18 17:34 Blood Type O NEGATIVE 06/01/18 14:45 Antibody Screen NEGATIVE 06/01/18 14:45 Crossmatch See Detail 06/01/18 14:45 - Physical Exam Vitals and I&O: Vital Signs Temp 98 F 06/08/18 00:00 Pulse 86 06/08/18 00:00 Resp 18 06/08/18 00:00 BP 115/47 06/08/18 00:00 Pulse Ox 96 06/08/18 00:00 Intake & Output 06/07/18 06/07/18 06/08/18 06:59 18:59 06:59 Intake Total 0618.305 3658.967 1410 Output Total 2330 1350 Balance -6700.303 0794.967 60 Weight (lbs) 94.846 kg 95.254 kg Intake: Intake, IV Amount 3019.292 3550.967 100 Albumin 25% 12.5gm/50mL 50 12.5 gm In 50 ml @ 50 mls /hr IV X1 ONE Rx#: [id number] Meropenem 500 mg In 300 100 100 Sodium Chloride 0.9% 100 ml @ 100 mls/hr IV Q8H [facility] Rx#:[id number] Multivitamin Inj 10 ml 018.572 2214.967 Insulin Human Regular 30 units In Dextrose 70% 500 ml In Amino Acids 8.5% 500 ml In Water, Sterile 700 ml @ 80 mls/hr IV . [id number] [facility] Rx#:[id number] Norepinephrine 4 mg In 41.91 Dextrose 5% 250 ml @ Titrate IV TITR PRN Rx#: [id number] Vancomycin HCl 1.25 gm In 250 250 Sodium Chloride 0.9% 250 ml @ 165 mls/hr IV Q24H [facility] Rx#:[id number] Oral 0 TPN/PPN 960 Other 350 Output: Gastric Drainage 0 0 Drainage 530 550 Left Lower Abdomen 290 300 Right Lower Abdomen 240 250 Urine 1800 800 Other: # Bowel Movements 0 0 Weight Source Bedscale Bedscale Active Medications: Current Medications Acetaminophen (Tylenol 650mg Supp) 650 mg RC Q4H PRN PRN Reason: PAIN OR TEMP >101 Stop: 07/21/18 22:25 Albuterol/Ipratropium (Duoneb Neb) 3 ml HHN [id number] [facility] Stop: 07/22/18 18:59 Last Admin: 06/07/18 19:05 Dose: 3 ml Bisacodyl (Dulcolax 10 Mg Supp) 10 mg RC DAILY [facility] Stop: 07/22/18 12:14 Last Admin: 06/07/18 09:32 Dose: Not Given Budesonide (Pulmicort) 0.5 mg HHN BIDRT [facility] Stop: 07/22/18 18:59 Last Admin: 06/07/18 19:05 Dose: 0.5 mg Calamine/Phenol (Calmoseptine) 1 appl TP QID PRN PRN Reason: Skin Irritation Stop: 07/25/18 15:43 Last Admin: 05/26/18 17:23 Dose: 1 appl [place] Oil/French Balsam/Trypsin (Venelex) 1 appl TP DAILY [facility] Stop: 07/25/18 15:59 Last Admin: 06/07/18 16:00 Dose: 1 appl Divalproex Sodium (Depakote Dr) 250 mg PO BID [facility]; Protocol Stop: 07/22/18 16:59 Last Admin: 06/07/18 18:58 Dose: Not Given Gabapentin (Neurontin) 300 mg PO TID [facility] Stop: 07/22/18 13:59 Last Admin: 06/07/18 21:12 Dose: 300 mg Hydromorphone HCl (Dilaudid) 1 mg IVP Q3H PRN PRN Reason: Severe Pain Stop: 07/31/18 13:19 Last Admin: 06/07/18 23:19 Dose: 1 mg Norepinephrine Bitartrate 4 mg (/ Dextrose) 254 mls @ 0 mls/hr IV TITR PRN; Protocol PRN Reason: BP MAINTENANCE (PER PROTOCOL) Stop: 07/31/18 17:54 Last Titration: 06/06/18 19:00 Dose: 0 mcg/min, 0 mls/hr Meropenem 500 mg/ Sodium (Chloride) 100 mls @ 100 mls/hr IV Q8H [facility] Stop: 07/31/18 20:59 Last Infusion: 06/07/18 21:36 Dose: Infused Vancomycin HCl 1.25 gm/ Sodium (Chloride) 250 mls @ 165 mls/hr IV Q24H [facility] Stop: 08/05/18 09:59 Last Infusion: 06/07/18 14:21 Dose: Infused Multivitamins/Minerals 10 ml/Insulin Human Regular 30 units / Dextrose/ Amino Acids/Electrolytes/ Sterile Water 1,710.3 mls @ 80 mls/hr IV .[id number] [facility] Stop: 06/25/18 15:59 Last Admin: 06/07/18 15:40 Dose: 80 mls/hr Insulin Aspart (Novolog Insulin Sliding Scale) 0 units SUBQ Q6HR [facility]; Protocol Stop: 07/22/18 11:59 Last Admin: 06/07/18 23:22 Dose: 2 units Lactobacillus Rhamnosus (Culturelle 15b) 1 each PO DAILY [facility] Stop: 07/25/18 08:59 Last Admin: 06/07/18 09:31 Dose: Not Given Lorazepam (Ativan) 0.5 mg IVP Q6H PRN PRN Reason: AGITATION Stop: 07/30/18 15:47 Last Admin: 06/06/18 02:05 Dose: 0.5 mg Miscellaneous (Probiotic Screen) 1 ea PRN PRN PRN Reason: PROTOCOL Stop: 07/24/18 14:14 Miscellaneous (Vancomycin Iv Per Pharmacy) 1 ea PRN [facility]IIA Stop: 07/31/18 20:44 Miscellaneous (Tpn Per Pharmacy) 1 ea PRN PRN PRN Reason: TPN PER RX Stop: 08/02/18 07:51 Morphine Sulfate (Morphine) 2 mg IVP Q3H PRN PRN Reason: Pain (Severe) Stop: 07/21/18 22:22 Last Admin: 06/07/18 19:51 Dose: 2 mg Ondansetron HCl (Zofran) 4 mg IV Q6H PRN PRN Reason: Nausea / Vomiting Stop: 07/21/18 22:24 Last Admin: 05/25/18 11:11 Dose: 4 mg Pantoprazole Sodium (Protonix) 40 mg IVP QDAC [facility] Stop: 08/02/18 08:59 Last Admin: 06/07/18 06:56 Dose: 40 mg - Procedures Procedures: Procedures Procedure Code Date EMERGENCY DEPT VISIT 75424 02/03/00 EXCISION OF SMALL INTESTINE, PERC ENDO APPROACH [id number] 05/22/18 EXCISION OF TRANSVERSE COLON, PERC ENDO APPROACH [id number] 05/22/18 IMMOBILIZ/WOUND ATTN NEC 93.59 08/01/01 RELEASE SMALL INTESTINE, OPEN APPROACH [id number] 05/22/18 REPAIR SMALL INTESTINE, PERCUTANEOUS ENDOSCOPIC APPROACH [id number] 05/22/18 RESPIRATORY VENTILATION, 24-96 CONSECUTIVE HOURS [id number] 05/22/18 Infectious Disease Assmt/Plan - Problem List Patient Problems: All Active Problems Bowel obstruction (Acute) K56.609 Bowel obstruction (Acute) K56.609 PERIPHERAL TREMORS WITH DIAPHORESIS (Acute) Nutritional Asmnt/Malnutr-PDOC - Dietary Evaluation Malnutrition Findings (Please click <Entered> for more info): Nutritional Asmnt/Malnutrition Start: 05/23/18 16: 41 Text: Status: Complete Freq: Protocol: Document 05/23/18 16:41 [email or web address] (Rec: 05/23/18 16:54 [id number]) Nutritional Asmnt/Malnutrition Patient General Information Nutritional Screening High Risk Consult Diagnosis bowel obstruction Pertinent Medical Hx/Surgical Hx HTN, dyslipidemia, depression, anxiety, impulse disorder Subjective Information Consult received for elevated glucose 249. pt admitted for abdominal pain. Pt seen resting in bed at time of visit. Pt is NPO, NGT on suction. Current Diet Order/ Nutrition Support NPO Pertinent Medications novolot, piperacillin, zofran, piperacillin, nacl Pertinent Labs 05/23 Na 120, Cl 89, Cr 0.5, glucsose 241, alb 3.4 Nutritional Hx/Data Height 1.63 m Height (Calculated Centimeters) 162.6 Current Weight (lbs) 77.111 kg Weight (Calculated Kilograms) 77.1 Weight (Calculated Grams) 44120.7 [place] Body Weight 120 Body Mass Index (BMI) 29.2 Weight Status Overweight GI Symptoms GI Symptoms None Last BM not indicated Difficult in: None Skin Integrity/Comment: ecchymosis Current %PO Negligible < 25% Estimated Nutritional Goals BEE in Kcals: Using Current wt Calories/Kcals/Kg 23-27 Kcals Calculated 4773-6041 Protein: Using Current wt Protein g/k.8-1 Protein Calculated 62-77 Fluid: ml 1431-0065 Nutritional Problem 2. Problem Problem altered nutrition related labs Etiology hyperglycemia Signs/Symptoms: glucose 241-249 1. Problem Problem inadequate food intake Etiology GI dysfunction Signs/Symptoms: pt on NPO Malnutrition Alert Is there a minimum of two criteria No selected? Query Text:Check all the applicable criteria. A minimum of two criteria are recommended for diagnosis of either severe or non-severe malnutrition. Malnutrition Related to Morbid Obesity Malnutrition related to morbid obesity No Intervention/Recommendation Comments 1. Monitor NPO status. Recommend clear liquid diet with Ensure Clear TID if diet advanced when medically appropriate 2. Monitor GI, wt, labs and skin integrity 3. F/U as high risk in 2-3 days Expected Outcomes/Goals Expected Outcomes/Goals 1. oral diet initiated in 2-3 days 2. Wt stability, skin to remain intact, labs to approach WNL.
[2018-06-08] MEDS: Meropenem 500 MG in Sodium Chloride 0.9% 100 ML IV SCH ×2 (04:26→13:38)
[2018-06-08 05:05] LABS: HEMATOCRIT 30.1 % (41.0-60); HEMOGLOBIN 9.8 gm/dL (12-16); MEAN CELL VOLUME 85.7 fl (81-100); MEAN CORPUSCULAR HEMOGLOBIN 27.9 pg (27.0-31.0); MEAN CORPUSCULAR HGB CONC 32.5 pg (28.0-36.0); MEAN PLATELET VOLUME 7.8 fl; RED BLOOD COUNT 3.51 Mil/cmm (3.80-5.20); WHITE BLOOD COUNT 9.1 Th/cmm (4.8-10.8)
[2018-06-08 05:12] LABS: ANION GAP 7.6 (7.0-16.0); BUN - UREA NITROGEN 22 mg/dL (7-25); CALCIUM SERUM 7.5 mg/dL (8.6-10.3); CARBON DIOXIDE 27.8 mEq/L (21.0-31.0); CHLORIDE 103 mEq/L (98-107); CREATININE - SERUM 0.3 mg/dL (0.6-1.2); GLUCOSE 144 mg/dL (70-105); MAGNESIUM 1.9 mg/dL (1.9-2.7); PHOSPHOROUS 2.8 mg/dL (2.5-5.0); POTASSIUM SERUM 4.4 mEq/L (3.5-5.1); SODIUM SERUM 134 mEq/L (136-145)
[2018-06-08 05:23] LABS: PLATELET COUNT 264 Th/cmm (150-400)
[2018-06-08] MEDS: HYDROmorphone 1 mg/mL 1mL Syr IVP PRN ×2 (05:33→13:34)
[2018-06-08] MEDS: INSULIN ASPART SLIDING SCALE 100 UNITS/ML UNIT SUBQ SCH ×3 (05:41→17:21)
[2018-06-08 06:21] LABS: NEUTROPHILS 86 % (40-80)
[2018-06-08 06:22] LABS: BAND NEUTROPHILE 0 % (0-10); BASOPHIL 0 % (0-3); EOSINOPHIL 1 % (0-5); LYMPHOCYTE 7 % (20-50); MONOCYTE 6 % (2-10)
[2018-06-08] MEDS: Albuterol/Ipratropium Neb 3 ML AERS HHN SCH ×5 (06:46→19:39)
[2018-06-08] MEDS: Budesonide 0.5 Mg/2 mL Ud HHN SCH ×2 (06:46→19:39)
[2018-06-08] MEDS ORDERED: TPN 8.5%-70% CUSTOM IV SCH ×3 (08:45→09:00)
--- NOTE | 2018-06-08 08:51 | Diagnostic Imaging Report ---
CHEST X-RAY: AP view INDICATION: Shortness of breath COMPARISON: 06/04/2018 FINDINGS: The prior ET tube is been removed. NG tube and right PICC line are stable. Congestive changes are seen with small effusions and bilateral infiltrates, left greater than right. Mild cardiomegaly is noted. IMPRESSION: Interval removal of the endotracheal tube. Mild congestive changes and bilateral infiltrates, left greater than right, with small bilateral effusions.
--- NOTE | 2018-06-08 09:20 | GI Progress Note ---
Subjective - Review of Systems Service Date: 06/08/18 Subjective: GI NOTE EVENTS NOTED. FAILED SWALLOW EVAL. MEDS RETAINED IN STOMACH. Objective - Results Result Diagrams: 06/08/18 04:00 06/08/18 04:00 Recent Labs: Laboratory Last Values WBC 9.1 Th/cmm (4.8-10.8) 06/08/18 04:00 Corrected WBC (auto) 3.0 Th/cmm (4.8-10.8) L 05/26/18 04:00 RBC 3.51 Mil/cmm (3.80-5.20) L 06/08/18 04:00 Hgb 9.8 gm/dL (12-16) L 06/08/18 04:00 Hct 30.1 % (41.0-60) L 06/08/18 04:00 MCV 85.7 fl (81-100) 06/08/18 04:00 MCH 27.9 pg (27.0-31.0) 06/08/18 04:00 MCHC Differential 32.5 pg (28.0-36.0) 06/08/18 04:00 RDW 14.0 % (11.5-20.0) 06/08/18 04:00 Plt Count 264 Th/cmm (150-400) D 06/08/18 04:00 MPV 7.8 fl 06/08/18 04:00 Add Manual Diff YES 06/08/18 04:00 Neutrophils % TRANSITION NURSE 06/08/18 04:00 Band Neutrophils % 0 % (0-10) 06/08/18 04:00 Lymphocytes % TRANSITION NURSE 06/08/18 04:00 Monocytes % TRANSITION NURSE 06/08/18 04:00 Eosinophils % TRANSITION NURSE 06/08/18 04:00 Basophils % TRANSITION NURSE 06/08/18 04:00 Neutrophils (Manual) 86 % (40-80) H 06/08/18 04:00 Lymphocytes 7 % (20-50) L 06/08/18 04:00 Monocytes 6 % (2-10) 06/08/18 04:00 Eosinophils 1 % (0-5) 06/08/18 04:00 Basophils 0 % (0-3) 06/08/18 04:00 Platelet Estimate ADEQUATE (NORMAL) 06/06/18 04:10 PT 10.8 SECONDS (9.5-11.5) 05/23/18 04:30 INR 1.04 (0.5-1.4) 05/23/18 04:30 PTT (Actin FS) 27.4 SECONDS (26.0-38.0) 05/23/18 04:30 Specimen Source Arterial 06/06/18 20:51 Sample Site Right Radial 06/06/18 20:51 pH 7.44 (7.35-7.45) 06/06/18 20:51 pCO2 39.0 mmHg (35.0-45.0) 06/06/18 20:51 pO2 175.0 mmHg (80.0-100.0) H 06/06/18 20:51 HCO3 26.7 mEq/L (20.0-26.0) H 06/06/18 20:51 Base Excess 2.2 mEq/L (-3.0-3.0) 06/06/18 20:51 O2 Saturation 100.0 % (92.0-100.0) 06/06/18 20:51 Ricky Test Positive 06/06/18 20:51 Vent Rate NA 06/06/18 20:51 Inspired O2 100 06/06/18 20:51 Tidal Volume NA 06/06/18 20:51 PEEP NA 06/06/18 20:51 Pressure (ins/psv/peep) NA 06/06/18 20:51 Critical Value L.Lupea 06/06/18 20:51 Sodium 134 mEq/L (136-145) L 06/08/18 04:00 Potassium 4.4 mEq/L (3.5-5.1) 06/08/18 04:00 Chloride 103 mEq/L (98-107) 06/08/18 04:00 Carbon Dioxide 27.8 mEq/L (21.0-31.0) 06/08/18 04:00 Anion Gap 7.6 (7.0-16.0) 06/08/18 04:00 BUN 22 mg/dL (7-25) 06/08/18 04:00 Creatinine 0.3 mg/dL (0.6-1.2) L 06/08/18 04:00 Est GFR ( Amer) TNP 06/08/18 04:00 Est GFR (Non-Af Amer) TNP 06/08/18 04:00 BUN/Creatinine Ratio 73.3 06/08/18 04:00 Glucose 144 mg/dL (70-105) H 06/08/18 04:00 POC Glucose 134 MG/DL (70 - 105) H 06/08/18 05:18 Plasma/Ser Osmolality 259 mOsmol/kg (280-301) L 05/23/18 09:55 Whole Bld Lactic Acid 2.51 mmol/L (0.60-1.99) H* 06/02/18 09:15 Calcium 7.5 mg/dL (8.6-10.3) L 06/08/18 04:00 Phosphorus 2.8 mg/dL (2.5-5.0) 06/08/18 04:00 Magnesium 1.9 mg/dL (1.9-2.7) 06/08/18 04:00 Total Bilirubin 0.4 mg/dL (0.3-1.0) 06/07/18 07:45 Direct Bilirubin 0.14 mg/dL (0.0-0.2) 05/24/18 07:05 AST 21 U/L (13-39) 06/07/18 07:45 ALT 15 U/L (7-52) 06/07/18 07:45 Alkaline Phosphatase 57 U/L (34-104) 06/07/18 07:45 Ammonia 46 umol/L (16-53) 05/25/18 04:00 Total Protein 4.1 gm/dL (6.0-8.3) L 06/07/18 07:45 Albumin 1.8 gm/dL (3.7-5.3) L 06/07/18 07:45 Globulin 2.3 gm/dL 06/07/18 07:45 Albumin/Globulin Ratio 0.8 (1.0-1.8) L 06/07/18 07:45 Prealbumin 5 mg/dL (9-32) L 06/06/18 04:10 Triglycerides 63 mg/dL (<150) 06/06/18 04:10 Cholesterol 77 mg/dL (<200) 06/06/18 04:10 TSH 3.21 uIU/ml (0.34-5.60) 05/22/18 17:34 Urine Source CLEAN C 05/22/18 18:55 Urine Color YELLOW 05/22/18 18:55 Urine Clarity HAZY (CLEAR) 05/22/18 18:55 Urine pH 6.0 (4.6 - 8.0) 05/22/18 18:55 Ur Specific [place] >= 1.030 (1.005-1.030) 05/22/18 18:55 Urine Protein TRACE mg/dL (NEGATIVE) 05/22/18 18:55 Urine Glucose (UA) 100 mg/dL (NEGATIVE) H 05/22/18 18:55 Urine Ketones 40 mg/dL (NEGATIVE) H 05/22/18 18:55 Urine Blood MODERATE (NEGATIVE) H 05/22/18 18:55 Urine Nitrate POSITIVE (NEGATIVE) H 05/22/18 18:55 Urine Bilirubin NEGATIVE (NEGATIVE) 05/22/18 18:55 Urine Urobilinogen 0.2 E.U./dL (0.2 - 1.0) 05/22/18 18:55 Ur Leukocyte Esterase SMALL (NEGATIVE) H 05/22/18 18:55 Urine RBC 0-2 /hpf (0-5) 05/22/18 18:55 Urine WBC 6-10 /hpf (0-5) H 05/22/18 18:55 Ur Epithelial Cells OCCASIONAL /lpf (FEW) 05/22/18 18:55 Urine Bacteria 2+ /hpf (NONE SEEN) H 05/22/18 18:55 Urine Osmolality 583 mOsmol/kg 05/24/18 06:00 Ur Random Sodium 14 mmol/L 05/24/18 06:00 Vancomycin Trough 7.0 ug/mL (5-10) 06/05/18 09:00 Valproic Acid 29.3 ug/mL (50.0-100.0) L 05/22/18 17:34 Blood Type O NEGATIVE 06/01/18 14:45 Antibody Screen NEGATIVE 06/01/18 14:45 Crossmatch See Detail 06/01/18 14:45 - Physical Exam Vitals and I&O: Vital Signs Temp 97.6 F 06/08/18 04:00 Pulse 82 06/08/18 07:07 Resp 20 06/08/18 07:07 BP 110/52 06/08/18 07:00 Pulse Ox 97 06/08/18 07:07 Intake & Output 06/07/18 06/08/18 06/08/18 18:59 06:59 18:59 Intake Total 1671.051 8704 Output Total 2400 Balance 1642.967 -890 Weight (lbs) 95.481 kg Intake: Intake, IV Amount 1642.967 200 Meropenem 500 mg In 100 200 Sodium Chloride 0.9% 100 ml @ 100 mls/hr IV Q8H [facility] Rx#:[id number] Multivitamin Inj 10 ml 1292.967 Insulin Human Regular 30 units In Dextrose 70% 500 ml In Amino Acids 8.5% 500 ml In Water, Sterile 700 ml @ 80 mls/hr IV . [id number] [facility] Rx#:[id number] Vancomycin HCl 1.25 gm In 250 Sodium Chloride 0.9% 250 ml @ 165 mls/hr IV Q24H [facility] Rx#:[id number] TPN/PPN 960 Other 350 Output: Gastric Drainage 0 Drainage 850 Left Lower Abdomen 440 Right Lower Abdomen 410 Urine 1550 Other: # Bowel Movements 0 Weight Source Bedscale Active Medications: Current Medications Acetaminophen (Tylenol 650mg Supp) 650 mg RC Q4H PRN PRN Reason: PAIN OR TEMP >101 Stop: 07/21/18 22:25 Albuterol/Ipratropium (Duoneb Neb) 3 ml HHN [id number] [facility] Stop: 07/22/18 18:59 Last Admin: 06/08/18 06:46 Dose: 3 ml Bisacodyl (Dulcolax 10 Mg Supp) 10 mg RC DAILY [facility] Stop: 07/22/18 12:14 Last Admin: 06/07/18 09:32 Dose: Not Given Budesonide (Pulmicort) 0.5 mg HHN BIDRT [facility] Stop: 07/22/18 18:59 Last Admin: 06/08/18 06:46 Dose: 0.5 mg Calamine/Phenol (Calmoseptine) 1 appl TP QID PRN PRN Reason: Skin Irritation Stop: 07/25/18 15:43 Last Admin: 05/26/18 17:23 Dose: 1 appl [place] Oil/[place] Balsam/Trypsin (Venelex) 1 appl TP DAILY [facility] Stop: 07/25/18 15:59 Last Admin: 06/07/18 16:00 Dose: 1 appl Divalproex Sodium (Depakote Dr) 250 mg PO BID [facility]; Protocol Stop: 07/22/18 16:59 Last Admin: 06/07/18 18:58 Dose: Not Given Gabapentin (Neurontin) 300 mg PO TID [facility] Stop: 07/22/18 13:59 Last Admin: 06/07/18 21:12 Dose: 300 mg Hydromorphone HCl (Dilaudid) 1 mg IVP Q3H PRN PRN Reason: Severe Pain Stop: 07/31/18 13:19 Last Admin: 06/08/18 05:33 Dose: 1 mg Norepinephrine Bitartrate 4 mg (/ Dextrose) 254 mls @ 0 mls/hr IV TITR PRN; Protocol PRN Reason: BP MAINTENANCE (PER PROTOCOL) Stop: 07/31/18 17:54 Last Titration: 06/06/18 19:00 Dose: 0 mcg/min, 0 mls/hr Meropenem 500 mg/ Sodium (Chloride) 100 mls @ 100 mls/hr IV Q8H [facility] Stop: 07/31/18 20:59 Last Infusion: 06/08/18 05:41 Dose: Infused Vancomycin HCl 1.25 gm/ Sodium (Chloride) 250 mls @ 165 mls/hr IV Q24H [facility] Stop: 08/05/18 09:59 Last Infusion: 06/07/18 14:21 Dose: Infused Multivitamins/Minerals 10 ml/Insulin Human Regular 30 units / Chromium/Copper/ Manganese/Zinc 1 ml/ Sodium Chloride 40 meq/ Potassium Chloride 40 meq / Calcium Gluconate 0.8 gm/Magnesium Sulfate 23 meq/Dextrose/ Amino Acids/ Electrolytes/ Sterile Water/Fat Emulsion Intravenous 1,829.965 mls @ 80 mls/hr IV .[id number] [facility] Stop: 06/25/18 15:59 Insulin Aspart (Novolog Insulin Sliding Scale) 0 units SUBQ Q6HR [facility]; Protocol Stop: 07/22/18 11:59 Last Admin: 06/08/18 05:41 Dose: Not Given Lactobacillus Rhamnosus (Culturelle 15b) 1 each PO DAILY [facility] Stop: 07/25/18 08:59 Last Admin: 06/07/18 09:31 Dose: Not Given Miscellaneous (Probiotic Screen) 1 ea PRN PRN PRN Reason: PROTOCOL Stop: 07/24/18 14:14 Miscellaneous (Vancomycin Iv Per Pharmacy) 1 ea MC PRN [facility] Stop: 07/31/18 20:44 Miscellaneous (Tpn Per Pharmacy) 1 ea MC PRN PRN PRN Reason: TPN PER RX Stop: 08/02/18 07:51 Morphine Sulfate (Morphine) 2 mg IVP Q3H PRN PRN Reason: Pain (Severe) Stop: 07/21/18 22:22 Last Admin: 06/07/18 19:51 Dose: 2 mg Ondansetron HCl (Zofran) 4 mg IV Q6H PRN PRN Reason: Nausea / Vomiting Stop: 07/21/18 22:24 Last Admin: 05/25/18 11:11 Dose: 4 mg Pantoprazole Sodium (Protonix) 40 mg IVP QDAC [facility]II[facility] Stop: 08/02/18 08:59 Last Admin: 06/08/18 06:49 Dose: 40 mg General: No acute distress HEENT: Other (NGT) Neck: Supple Cardiovascular: Regular rate Lungs: Other (Rales) Abdomen: Soft, Drain, no Tender, no Distended - Procedures Procedures: Procedures Procedure Code Date EMERGENCY DEPT VISIT 77806 02/03/00 EXCISION OF SMALL INTESTINE, PERC ENDO APPROACH [id number] 05/22/18 EXCISION OF TRANSVERSE COLON, PERC ENDO APPROACH [id number] 05/22/18 IMMOBILIZ/WOUND ATTN NEC 93.59 08/01/01 RELEASE SMALL INTESTINE, OPEN APPROACH [id number] 05/22/18 REPAIR SMALL INTESTINE, PERCUTANEOUS ENDOSCOPIC APPROACH [id number] 05/22/18 RESPIRATORY VENTILATION, 24-96 CONSECUTIVE HOURS [id number] 05/22/18 Assessment/Plan - Problem List Patient Problems: All Active Problems Bowel obstruction (Acute) K56.609 Bowel obstruction (Acute) K56.609 PERIPHERAL TREMORS WITH DIAPHORESIS (Acute) - Assessment Assessment: IMPRESSION: 1. Bowel obstruction large and small - s/p ex lap 06/01/18 with partial resections of small and large intestines, ventral hernia repair. 2. Post op ileus, better. 3. Sepsis with hypotension, better. RECS: -Post op care as per surgeon. -Abx. -continue TPN. -monitor labs. -NGT to be clamped; may give meds per NGT. -repeat swallow evaluation in a few days - failed the first one 06/07/18. -pending transfer to [facility] early next week.
[2018-06-08 09:32] LABS: pH 7.46 (7.35-7.45)
[2018-06-08 09:33] LABS: ALLEN TEST YES
[2018-06-08] MEDS: Lactobacillus Rhamnosus GG 15 Billion CFU CAP.SPRINK PO SCH (09:49)
--- NOTE | 2018-06-08 14:52 | History & Physical ---
ADMIT DATE: 05/23/2018 PROBLEM LIST: 1. Recurrent tachypnea. 2. Poor ability to mobilize secretion. 3. Suspect sleep apnea syndrome. PHYSICAL EXAMINATION: GENERAL: The patient is calmer. No respiratory distress, currently Venturi mask, saturating 100% on 40%. VITAL SIGNS: Temperature is 98.8, blood pressure 127/48. NECK: Veins not visualized. CHEST: Shows diminished air entry with occasional secretory noise. ABDOMEN: Dressing otherwise unremarkable. LABORATORY DATA: The patient's ABG, pO2 is 91 on a Venturi mask. White count is 9.6, hemoglobin 9.8. IMPRESSION: The patient was optimally stable related to the lungs with poor inspiratory effort. PLANS AND SUGGESTIONS: Okay for respiratory [facility] to transfer and go from there. JOB# [id number]
[2018-06-08] MEDS ORDERED: TPN 10%-70% CUSTOM IV SCH (15:00)
[2018-06-08] MEDS: Venelex 60gm Tube TP SCH (17:22)
--- NOTE | 2018-06-09 02:52 | Infectious Disease Prog Note ---
Infectious Disease Subjective - Review of Systems Service Date: 06/08/18 Subjective: cc peritonitis.pn uti hip- cx noted on iv bax d/w staff schedule for [place] ltac ros no fevr o/e vss chest veicular abd soft ext pulse Vital Signs - 24 hr 06/07/18 06/07/18 06/07/18 03:00 04:00 05:00 Temp 98.0 F HR 82 83 83 RR 16 19 17 BP 116/42 111/43 128/47 O2 Sat % 96 93 92 06/07/18 06/07/18 06/07/18 06:00 07:00 08:00 Temp 98.0 F 89.2 F HR 91 81 82 RR 20 17 18 BP 99/52 101/36 118/50 O2 Sat % 92 93 99 06/07/18 06/07/18 06/07/18 08:05 09:00 10:00 Temp HR 83 81 85 RR 18 21 22 BP 113/50 116/46 O2 Sat % 94 95 95 06/07/18 06/07/18 06/07/18 11:00 12:00 12:07 Temp 99 F HR 85 90 88 RR 18 19 22 BP 147/75 133/58 O2 Sat % 95 94 92 06/07/18 06/07/18 06/07/18 13:00 14:00 15:00 Temp HR 87 89 87 RR 25 21 20 BP 117/48 130/58 136/50 O2 Sat % 95 97 96 06/07/18 06/07/18 06/07/18 16:00 16:02 17:00 Temp 99 F HR 88 85 90 RR 19 21 20 BP 147/51 133/52 O2 Sat % 96 95 96 06/07/18 06/07/18 06/07/18 18:00 18:59 19:07 Temp HR 96 84 89 RR 22 23 20 BP 110/45 130/84 O2 Sat % 97 96 06/07/18 06/07/18 06/07/18 19:17 20:00 21:00 Temp 99 F 98.3 F HR 88 94 88 RR 21 16 22 BP 128/50 125/46 O2 Sat % 97 95 96 06/07/18 06/07/18 06/08/18 22:00 23:00 00:00 Temp 98 F HR 87 88 86 RR 23 14 18 BP 124/43 141/54 115/47 O2 Sat % 98 95 96 Microbiology 05/22/18 19:11 Blood - Final NO GROWTH AFTER 5 DAYS 05/24/18 17:40 Respiratory Gram Stain - Final 05/24/18 17:40 Respiratory Sputum Culture - Final 05/22/18 18:55 Urine Urine Culture - Final Escherichia Coli 05/22/18 17:00 Nares - Final NO MRSA ISOLATED 05/23/18 05:30 Sputum - Expectorated Sputum Gram Stain - Final 05/23/18 05:30 Sputum - Expectorated Sputum Sputum Culture - Final 05/23/18 12:10 Sputum - Expectorated Sputum Gram Stain - Final 05/23/18 12:10 Sputum - Expectorated Sputum Sputum Culture - Final Diagnoses SEPSIS, UNSPECIFIED ORGANISM (05/22/18) ELEVATED WHITE BLOOD CELL COUNT, UNSPECIFIED (05/22/18) SYNDROME OF INAPPROPRIATE SECRETION OF ANTIDIURETIC HORMONE (05/22/18) HYPOMAGNESEMIA (05/22/18) ACIDOSIS (05/22/18) UNSPECIFIED DEMENTIA WITHOUT BEHAVIORAL DISTURBANCE (05/22/18) ESSENTIAL (PRIMARY) HYPERTENSION (05/22/18) PNEUMONIA, UNSPECIFIED ORGANISM (05/22/18) ACUTE POSTPROCEDURAL RESPIRATORY FAILURE (05/22/18) VENTRAL HERNIA WITHOUT OBSTRUCTION OR GANGRENE (05/22/18) POSTPROC INTESTINAL OBST, 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 (05/22/18) AGE-RELATED OSTEOPOROSIS W/O CURRENT PATHOLOGICAL FRACTURE (05/22/18) URINARY TRACT INFECTION, SITE NOT SPECIFIED (05/22/18) WEAKNESS (05/22/18) DO NOT RESUSCITATE (05/22/18) Current Medications Acetaminophen (Tylenol 650mg Supp) 650 mg RC Q4H PRN PRN Reason: PAIN OR TEMP >101 Stop: 07/21/18 22:25 Albuterol/Ipratropium (Duoneb Neb) 3 ml HHN [id number] [facility] Stop: 07/22/18 18:59 Last Admin: 06/07/18 19:05 Dose: 3 ml Bisacodyl (Dulcolax 10 Mg Supp) 10 mg RC DAILY [facility] Stop: 07/22/18 12:14 Last Admin: 06/07/18 09:32 Dose: Not Given Budesonide (Pulmicort) 0.5 mg HHN BIDRT [facility] Stop: 07/22/18 18:59 Last Admin: 06/07/18 19:05 Dose: 0.5 mg Calamine/Phenol (Calmoseptine) 1 appl TP QID PRN PRN Reason: Skin Irritation Stop: 07/25/18 15:43 Last Admin: 05/26/18 17:23 Dose: 1 appl Powderly Oil/[place] Balsam/Trypsin (Venelex) 1 appl TP DAILY [facility] Stop: 07/25/18 15:59 Last Admin: 06/07/18 16:00 Dose: 1 appl Divalproex Sodium (Depakote Dr) 250 mg PO BID [facility]; Protocol Stop: 07/22/18 16:59 Last Admin: 06/07/18 18:58 Dose: Not Given Gabapentin (Neurontin) 300 mg PO TID [facility] Stop: 07/22/18 13:59 Last Admin: 06/07/18 21:12 Dose: 300 mg Hydromorphone HCl (Dilaudid) 1 mg IVP Q3H PRN PRN Reason: Severe Pain Stop: 07/31/18 13:19 Last Admin: 06/07/18 23:19 Dose: 1 mg Norepinephrine Bitartrate 4 mg (/ Dextrose) 254 mls @ 0 mls/hr IV TITR PRN; Protocol PRN Reason: BP MAINTENANCE (PER PROTOCOL) Stop: 07/31/18 17:54 Last Titration: 06/06/18 19:00 Dose: 0 mcg/min, 0 mls/hr Meropenem 500 mg/ Sodium (Chloride) 100 mls @ 100 mls/hr IV Q8H [facility] Stop: 07/31/18 20:59 Last Infusion: 06/07/18 21:36 Dose: Infused Vancomycin HCl 1.25 gm/ Sodium (Chloride) 250 mls @ 165 mls/hr IV Q24H [facility] Stop: 08/05/18 09:59 Last Infusion: 06/07/18 14:21 Dose: Infused Multivitamins/Minerals 10 ml/Insulin Human Regular 30 units / Dextrose/ Amino Acids/Electrolytes/ Sterile Water 1,710.3 mls @ 80 mls/hr IV .[id number] [facility] Stop: 06/25/18 15:59 Last Admin: 06/07/18 15:40 Dose: 80 mls/hr Insulin Aspart (Novolog Insulin Sliding Scale) 0 units SUBQ Q6HR [facility]; Protocol Stop: 07/22/18 11:59 Last Admin: 06/07/18 23:22 Dose: 2 units Lactobacillus Rhamnosus (Culturelle 15b) 1 each PO DAILY [facility] Stop: 07/25/18 08:59 Last Admin: 06/07/18 09:31 Dose: Not Given Lorazepam (Ativan) 0.5 mg IVP Q6H PRN PRN Reason: AGITATION Stop: 07/30/18 15:47 Last Admin: 06/06/18 02:05 Dose: 0.5 mg Miscellaneous (Probiotic Screen) 1 ea PRN PRN PRN Reason: PROTOCOL Stop: 07/24/18 14:14 Miscellaneous (Vancomycin Iv Per Pharmacy) 1 ea PRN [facility] Stop: 07/31/18 20:44 Miscellaneous (Tpn Per Pharmacy) 1 ea PRN PRN PRN Reason: TPN PER RX Stop: 08/02/18 07:51 Morphine Sulfate (Morphine) 2 mg IVP Q3H PRN PRN Reason: Pain (Severe) Stop: 07/21/18 22:22 Last Admin: 06/07/18 19:51 Dose: 2 mg Ondansetron HCl (Zofran) 4 mg IV Q6H PRN PRN Reason: Nausea / Vomiting Stop: 07/21/18 22:24 Last Admin: 05/25/18 11:11 Dose: 4 mg Pantoprazole Sodium (Protonix) 40 mg IVP QDAC [facility] Stop: 08/02/18 08:59 Last Admin: 06/07/18 06:56 Dose: 40 mg Diagnoses SEPSIS, UNSPECIFIED ORGANISM (05/22/18) ELEVATED WHITE BLOOD CELL COUNT, UNSPECIFIED (05/22/18) SYNDROME OF INAPPROPRIATE SECRETION OF ANTIDIURETIC HORMONE (05/22/18) HYPOMAGNESEMIA (05/22/18) ACIDOSIS (05/22/18) UNSPECIFIED DEMENTIA WITHOUT BEHAVIORAL DISTURBANCE (05/22/18) ESSENTIAL (PRIMARY) HYPERTENSION (05/22/18) PNEUMONIA, UNSPECIFIED ORGANISM (05/22/18) ACUTE POSTPROCEDURAL RESPIRATORY FAILURE (05/22/18) VENTRAL HERNIA WITHOUT OBSTRUCTION OR GANGRENE (05/22/18) POSTPROC INTESTINAL OBST, 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 (05/22/18) AGE-RELATED OSTEOPOROSIS W/O CURRENT PATHOLOGICAL FRACTURE (05/22/18) URINARY TRACT INFECTION, SITE NOT SPECIFIED (05/22/18) WEAKNESS (05/22/18) DO NOT RESUSCITATE (05/22/18) Infectious Disease Objective - Results Result Diagrams: 06/08/18 04:00 06/08/18 04:00 Recent Labs: Laboratory Last Values WBC 9.1 Th/cmm (4.8-10.8) 06/08/18 04:00 Corrected WBC (auto) 3.0 Th/cmm (4.8-10.8) L 05/26/18 04:00 RBC 3.51 Mil/cmm (3.80-5.20) L 06/08/18 04:00 Hgb 9.8 gm/dL (12-16) L 06/08/18 04:00 Hct 30.1 % (41.0-60) L 06/08/18 04:00 MCV 85.7 fl (81-100) 06/08/18 04:00 MCH 27.9 pg (27.0-31.0) 06/08/18 04:00 MCHC Differential 32.5 pg (28.0-36.0) 06/08/18 04:00 RDW 14.0 % (11.5-20.0) 06/08/18 04:00 Plt Count 264 Th/cmm (150-400) D 06/08/18 04:00 MPV 7.8 fl 06/08/18 04:00 Add Manual Diff YES 06/08/18 04:00 Neutrophils % [employer] 06/08/18 04:00 Band Neutrophils % 0 % (0-10) 06/08/18 04:00 Lymphocytes % [employer] 06/08/18 04:00 Monocytes % [employer] 06/08/18 04:00 Eosinophils % [employer] 06/08/18 04:00 Basophils % [employer] 06/08/18 04:00 Neutrophils (Manual) 86 % (40-80) H 06/08/18 04:00 Lymphocytes 7 % (20-50) L 06/08/18 04:00 Monocytes 6 % (2-10) 06/08/18 04:00 Eosinophils 1 % (0-5) 06/08/18 04:00 Basophils 0 % (0-3) 06/08/18 04:00 Platelet Estimate ADEQUATE (NORMAL) 06/06/18 04:10 PT 10.8 SECONDS (9.5-11.5) 05/23/18 04:30 INR 1.04 (0.5-1.4) 05/23/18 04:30 PTT (Actin FS) 27.4 SECONDS (26.0-38.0) 05/23/18 04:30 Specimen Source Arterial 06/08/18 09:24 Sample Site Right Radial 06/08/18 09:24 pH 7.46 (7.35-7.45) H 06/08/18 09:24 pCO2 39.0 mmHg (35.0-45.0) 06/08/18 09:24 pO2 91.0 mmHg (80.0-100.0) 06/08/18 09:24 HCO3 27.8 mEq/L (20.0-26.0) H 06/08/18 09:24 Base Excess 3.7 mEq/L (-3.0-3.0) H 06/08/18 09:24 O2 Saturation 97.0 % (92.0-100.0) 06/08/18 09:24 Ricky Test YES 06/08/18 09:24 Vent Rate NA 06/08/18 09:24 Inspired O2 35 06/08/18 09:24 Tidal Volume NA 06/08/18 09:24 PEEP NA 06/08/18 09:24 Pressure (ins/psv/peep) NA 06/08/18 09:24 Critical Value E.BOBBY 06/08/18 09:24 Sodium 134 mEq/L (136-145) L 06/08/18 04:00 Potassium 4.4 mEq/L (3.5-5.1) 06/08/18 04:00 Chloride 103 mEq/L (98-107) 06/08/18 04:00 Carbon Dioxide 27.8 mEq/L (21.0-31.0) 06/08/18 04:00 Anion Gap 7.6 (7.0-16.0) 06/08/18 04:00 BUN 22 mg/dL (7-25) 06/08/18 04:00 Creatinine 0.3 mg/dL (0.6-1.2) L 06/08/18 04:00 Est GFR ( Amer) TNP 06/08/18 04:00 Est GFR (Non-Af Amer) TNP 06/08/18 04:00 BUN/Creatinine Ratio 73.3 06/08/18 04:00 Glucose 144 mg/dL (70-105) H 06/08/18 04:00 POC Glucose 147 MG/DL (70 - 105) H 06/08/18 17:11 Plasma/Ser Osmolality 259 mOsmol/kg (280-301) L 05/23/18 09:55 Whole Bld Lactic Acid 2.51 mmol/L (0.60-1.99) H* 06/02/18 09:15 Calcium 7.5 mg/dL (8.6-10.3) L 06/08/18 04:00 Phosphorus 2.8 mg/dL (2.5-5.0) 06/08/18 04:00 Magnesium 1.9 mg/dL (1.9-2.7) 06/08/18 04:00 Total Bilirubin 0.4 mg/dL (0.3-1.0) 06/07/18 07:45 Direct Bilirubin 0.14 mg/dL (0.0-0.2) 05/24/18 07:05 AST 21 U/L (13-39) 06/07/18 07:45 ALT 15 U/L (7-52) 06/07/18 07:45 Alkaline Phosphatase 57 U/L (34-104) 06/07/18 07:45 Ammonia 37 umol/L (16-53) 06/08/18 09:00 Total Protein 4.1 gm/dL (6.0-8.3) L 06/07/18 07:45 Albumin 1.8 gm/dL (3.7-5.3) L 06/07/18 07:45 Globulin 2.3 gm/dL 06/07/18 07:45 Albumin/Globulin Ratio 0.8 (1.0-1.8) L 06/07/18 07:45 Prealbumin 5 mg/dL (9-32) L 06/06/18 04:10 Triglycerides 63 mg/dL (<150) 06/06/18 04:10 Cholesterol 77 mg/dL (<200) 06/06/18 04:10 TSH 3.21 uIU/ml (0.34-5.60) 05/22/18 17:34 Urine Source CLEAN C 05/22/18 18:55 Urine Color YELLOW 05/22/18 18:55 Urine Clarity HAZY (CLEAR) 05/22/18 18:55 Urine pH 6.0 (4.6 - 8.0) 05/22/18 18:55 Ur Specific [place] >= 1.030 (1.005-1.030) 05/22/18 18:55 Urine Protein TRACE mg/dL (NEGATIVE) 05/22/18 18:55 Urine Glucose (UA) 100 mg/dL (NEGATIVE) H 05/22/18 18:55 Urine Ketones 40 mg/dL (NEGATIVE) H 05/22/18 18:55 Urine Blood MODERATE (NEGATIVE) H 05/22/18 18:55 Urine Nitrate POSITIVE (NEGATIVE) H 05/22/18 18:55 Urine Bilirubin NEGATIVE (NEGATIVE) 05/22/18 18:55 Urine Urobilinogen 0.2 E.U./dL (0.2 - 1.0) 05/22/18 18:55 Ur Leukocyte Esterase SMALL (NEGATIVE) H 05/22/18 18:55 Urine RBC 0-2 /hpf (0-5) 05/22/18 18:55 Urine WBC 6-10 /hpf (0-5) H 05/22/18 18:55 Ur Epithelial Cells OCCASIONAL /lpf (FEW) 05/22/18 18:55 Urine Bacteria 2+ /hpf (NONE SEEN) H 05/22/18 18:55 Urine Osmolality 583 mOsmol/kg 05/24/18 06:00 Ur Random Sodium 14 mmol/L 05/24/18 06:00 Vancomycin Trough 7.6 ug/mL (5-10) 06/08/18 09:00 Valproic Acid 29.3 ug/mL (50.0-100.0) L 05/22/18 17:34 Blood Type O NEGATIVE 06/01/18 14:45 Antibody Screen NEGATIVE 06/01/18 14:45 Crossmatch See Detail 06/01/18 14:45 - Physical Exam Vitals and I&O: Vital Signs Temp 98.8 F 06/08/18 16:00 Pulse 121 06/08/18 19:39 Resp 17 06/08/18 19:39 BP 118/54 06/08/18 18:00 Pulse Ox 98 06/08/18 19:39 Intake & Output 01/09/19 01/09/19 01/10/19 06:59 18:59 06:59 Intake Total 1510 1660 Output Total 2400 1075 Balance -890 585 Weight (lbs) 95.481 kg 95.254 kg Intake: Intake, IV Amount 200 350 Meropenem 500 mg In 200 100 Sodium Chloride 0.9% 100 ml @ 100 mls/hr IV Q8H [facility] Rx#:[id number] Vancomycin HCl 1.25 gm In 250 Sodium Chloride 0.9% 250 ml @ 165 mls/hr IV Q12H [facility] Rx#:[id number] TPN/PPN 960 960 Other 350 350 Output: Gastric Drainage 0 Drainage 850 275 Left Lower Abdomen 440 125 Right Lower Abdomen 410 150 Urine 1550 800 Other: # Bowel Movements 0 Weight Source Bedscale Bedscale - Procedures Procedures: Procedures Procedure Code Date EMERGENCY DEPT VISIT 55727 02/03/00 EXCISION OF SMALL INTESTINE, PERC ENDO APPROACH [id number] 05/22/18 EXCISION OF TRANSVERSE COLON, PERC ENDO APPROACH [id number] 05/22/18 IMMOBILIZ/WOUND ATTN NEC 93.59 08/01/01 RELEASE SMALL INTESTINE, OPEN APPROACH [id number] 05/22/18 REPAIR SMALL INTESTINE, PERCUTANEOUS ENDOSCOPIC APPROACH [id number] 05/22/18 RESPIRATORY VENTILATION, 24-96 CONSECUTIVE HOURS [id number] 05/22/18 Nutritional Asmnt/Malnutr-PDOC - Dietary Evaluation Malnutrition Findings (Please click <Entered> for more info): Nutritional Asmnt/Malnutrition Start: 05/23/18 16: 41 Text: Status: Complete Freq: Protocol: Document 05/23/18 16:41 LCHENG (Rec: 05/23/18 16:54 [id number]) Nutritional Asmnt/Malnutrition Patient General Information Nutritional Screening High Risk Consult Diagnosis bowel obstruction Pertinent Medical Hx/Surgical Hx HTN, dyslipidemia, depression, anxiety, impulse disorder Subjective Information Consult received for elevated glucose 249. pt admitted for abdominal pain. Pt seen resting in bed at time of visit. Pt is NPO, NGT on suction. Current Diet Order/ Nutrition Support NPO Pertinent Medications novolot, piperacillin, zofran, piperacillin, nacl Pertinent Labs 05/23 Na 120, Cl 89, Cr 0.5, glucsose 241, alb 3.4 Nutritional Hx/Data Height 1.63 m Height (Calculated Centimeters) 162.6 Current Weight (lbs) 77.111 kg Weight (Calculated Kilograms) 77.1 Weight (Calculated Grams) 08026.7 [place] Body Weight 120 Body Mass Index (BMI) 29.2 Weight Status Overweight GI Symptoms GI Symptoms None Last BM not indicated Difficult in: None Skin Integrity/Comment: ecchymosis Current %PO Negligible < 25% Estimated Nutritional Goals BEE in Kcals: Using Current wt Calories/Kcals/Kg 23-27 Kcals Calculated Protein: Using Current wt Protein g/k.8-1 Protein Calculated 62-77 Fluid: ml Nutritional Problem 2. Problem Problem altered nutrition related labs Etiology hyperglycemia Signs/Symptoms: glucose 241-249 1. Problem Problem inadequate food intake Etiology GI dysfunction Signs/Symptoms: pt on NPO Malnutrition Alert Is there a minimum of two criteria No selected? Query Text:Check all the applicable criteria. A minimum of two criteria are recommended for diagnosis of either severe or non-severe malnutrition. Malnutrition Related to Morbid Obesity Malnutrition related to morbid obesity No Intervention/Recommendation Comments 1. Monitor NPO status. Recommend clear liquid diet with Ensure Clear TID if diet advanced when medically appropriate 2. Monitor GI, wt, labs and skin integrity 3. F/U as high risk in 2-3 days Expected Outcomes/Goals Expected Outcomes/Goals 1. oral diet initiated in 2-3 days 2. Wt stability, skin to remain intact, labs to approach WNL.
== END 2018-06-08 20:25 | DRG 853 ==
LOC: ER 17:10 → ICU 21:00
PROVIDERS: ADMIT Internal Medicine; ATTEND Internal Medicine
PROC: 0D9670Z Drainage of Stomach with Drainage Device, Via Natural or Artificial Opening (ICD-10-PCS; 2018-05-25)
PROC: 0DB80ZZ Excision of Small Intestine, Open Approach (ICD-10-PCS; principal; 2018-06-01)
PROC: 0DBL0ZZ Excision of Transverse Colon, Open Approach (ICD-10-PCS; 2018-06-01)
PROC: 0WUF0KZ Supplement Abdominal Wall with Nonautologous Tissue Substitute, Open Approach (ICD-10-PCS; 2018-06-01)
PROC: 0DQ80ZZ Repair Small Intestine, Open Approach (ICD-10-PCS; 2018-06-01)
PROC: 5A1945Z Respiratory Ventilation, 24-96 Consecutive Hours (ICD-10-PCS; 2018-06-01)
PROC: 0DNL0ZZ Release Transverse Colon, Open Approach (ICD-10-PCS; 2018-06-01)
PROC: 0BH17EZ Insertion of Endotracheal Airway into Trachea, Via Natural or Artificial Opening (ICD-10-PCS; 2018-06-01)
PROC: 3E0336Z Introduction of Nutritional Substance into Peripheral Vein, Percutaneous Approach (ICD-10-PCS; 2018-06-02)
PROC: 30233N1 Transfusion of Nonautologous Red Blood Cells into Peripheral Vein, Percutaneous Approach (ICD-10-PCS; 2018-06-03)
DX: A41.9 Sepsis, unspecified organism (principal); J18.9 Pneumonia, unspecified organism; J18.1 Lobar pneumonia, unspecified organism; R65.21 Severe sepsis with septic shock; K65.9 Peritonitis, unspecified; K91.30 Postprocedural intestinal obstruction, unspecified as to partial versus complete; N39.0 Urinary tract infection, site not specified; E22.2 Syndrome of inappropriate secretion of antidiuretic hormone; K43.0 Incisional hernia with obstruction, without gangrene; I47.1 Supraventricular tachycardia; I10 Essential (primary) hypertension; Z66 Do not resuscitate; K43.9 Ventral hernia without obstruction or gangrene; E83.42 Hypomagnesemia; M81.0 Age-related osteoporosis without current pathological fracture; F03.90 Unspecified dementia, unspecified severity, without behavioral disturbance, psychotic disturbance, mood disturbance, and anxiety; E78.5 Hyperlipidemia, unspecified; E86.0 Dehydration; F32.9 Major depressive disorder, single episode, unspecified; K80.20 Calculus of gallbladder without cholecystitis without obstruction; F41.9 Anxiety disorder, unspecified; F29 Unspecified psychosis not due to a substance or known physiological condition; M19.90 Unspecified osteoarthritis, unspecified site; E11.9 Type 2 diabetes mellitus without complications; G24.01 Drug induced subacute dyskinesia; T50.905A Adverse effect of unspecified drugs, medicaments and biological substances, initial encounter; Y92.89 Other specified places as the place of occurrence of the external cause; K44.9 Diaphragmatic hernia without obstruction or gangrene; E83.39 Other disorders of phosphorus metabolism; B96.20 Unspecified Escherichia coli [E. coli] as the cause of diseases classified elsewhere; Z88.5 Allergy status to narcotic agent
CPT/HCPCS: 36415-UA; 36600-90; 71045-TC; 71250-TC; 74000-TC; 74250-TC; 80048-TC; 80053-TC; 80076-TC; 80164-TC; 80202-TC; 81001-TC; 82140-TC; 82465-TC; 82803-TC; 82948-90; 83036-90; 83605; 83735-TC; 83930-90; 83935-90; 84100-TC; 84134-90; 84300-TC; 84443-TC; 84478-TC; 85007-TC; 85014-TC; 85018-TC; 85025-TC; 85610-TC; 86850-TC; 86900-TC; 86901-TC; 86922-TC; 87070; 87086-90; 88304-TC; 88305-90; 90779; 90799; 93005; 94002; 94003; 94640; 94664; 94760; 96372; 96375; 96379; 99201; A4217; C9113; J0282; J0610; J0690; J1170; J1815; J1885; J2060; J2185; J2270; J2370; J2405; J2543; J2704; J2710; J3010; J3370; J3475; J3480; J3490; J7030; J7040; J7042; J7131; P9016; P9046; P9047; Q9967; X3401; X5716; X6258; X6452; X6598; X6776; Z7610